=== PATIENT | female | born 1990 | race Caucasian/White ===

== ENCOUNTER 2016-08-27 14:42 | Emergency (ER) | payer OTHER ==
[~2016-08-27] VITALS: Ht 167.6 cm; Wt 85.0 kg
[~2016-08-27 14:42] MED LIST: BUSP30TA2 PO; CARB100C2 PO; CARB1CAP9 PO; LEVE500T26 PO; OXYC1TAB3 PO; PHN/100 PO; VENL75CA PO
[2016-08-27 14:48] VITALS: TEMP 36.7; Ht 167.6 cm; Wt 85.0 kg
[2016-08-27] MEDS ORDERED: ONDANSETRON INJ 2 MG/ML 2 ML VIAL IV STA (15:16)
[2016-08-27] MEDS ORDERED: SODIUM CHLORIDE 0.9% 1000ML 1,000 ML IV STA (15:16)
--- NOTE | 2016-08-27 15:26 | EMERGENCY ROOM VISIT NOTE ---
History First contact with patient: 15:07 Chief Complaint: ILLNESS Stated Complaint: POSSIBLE DILANTIN OVERDOSE History of Present Illness The patient is a 26 year old female who presents to the Emergency Room with complaints of possible Dilantin toxicity. The patient takes Dilantin and Tegretol for seizures. She states that she has been taking all of her medications exactly as prescribed. The patient states that when her Dilantin was elevated in the past she had the exact same symptoms. The patient reports nausea, double vision, migraine, photophobia and shaking. She rates her discomfort a 7/10. The patient's neurologist is Dr. Carter. She states she hasn't had her Dilantin level checked since the last time she was here. She denies any earache or sore throat. She states the entire family has had a cough. Her cough persists. She denies any neck pain or neck stiffness. She denies any abdominal pain. She denies any numbness, tingling or weakness in the extremities. Review of Systems A 10 system review of systems was completed with positives and pertinent negatives listed in the HPI. Past Medical/Surgical History Medical Problems: (1) Seizure disorder Surgical Problems: (1) History of dental surgery (2) History of tubal ligation Family History Cancer Heart disease Hypertension Seizures Social History Smoking Status: Never Smoker Alcohol Use: occasionally Drug Use: marijuana Marital Status: single Housing Status: lives with family Occupation Status: unemployed Current/Historical Medications Scheduled Buspirone HCl (Buspirone HCl), 30 MG PO BID Carbamazepine (Carbatrol Er), 600 MG PO BID Carbamazepine (Carbamazepine), 150 MG PO BID Phenytoin Sodium (Dilantin), 300 MG PO BID Venlafaxine Hcl (Effexor Extended Rel), 150 MG PO QAM Allergies Coded Allergies: Prednisone (Verified Adverse Reaction, Unknown, DILANTIN TOXICITY, 08/27/16 ) Sulfamethoxazole w/Trimethoprim (Verified Adverse Reaction, Unknown, BURNING,DIARRHEA, 08/27/16) Physical Exam Vital Signs Date Time Temp Pulse Resp B/P Pulse Ox O2 Delivery O2 Flow Rate FiO2 08/27/16 17:48 83 18 117/68 99 08/27/16 16:54 80 18 120/69 100 Room Air 08/27/16 14:48 36.7 89 20 179/88 99 Room Air Physical Exam VITALS: Vitals are noted on the nurse's note and reviewed by myself. Vital signs stable. The patient is afebrile. She is not tachycardic, tachypneic or hypoxic. GENERAL: This is a 26-year-old female, in no acute distress, nondiaphoretic, well-developed well-nourished. SKIN: The skin was without rashes, erythema, edema, or bruising. There is no tenting of the skin. Capillary reflex less than 2 seconds. HEAD: Normocephalic atraumatic. EARS: External auditory canals clear, tympanic membranes pearly daniels without erythema or effusion bilaterally. EYES: Pupils equal round and reactive to light and accommodation. The patient does have photosensitivity. Conjunctivae without injection, sclerae without icterus. Extraocular movements intact. NOSE: Patent, turbinates without inflammation or discharge. MOUTH: Mucous membranes moist. Tonsils are not enlarged. Pharynx without erythema or exudate. Uvula midline. Airway patent. Tongue does not deviate. NECK: Supple without nuchal rigidity. No JVD. HEART: Regular rate and rhythm without murmurs gallops or rubs. LUNGS: Clear to auscultation bilaterally without wheezes, rales or rhonchi. No retractions or accessory muscle use. ABDOMEN: Positive bowel sounds x 4. Soft, nontender, without masses or organomegaly. MUSCULOSKELETAL: No muscle atrophy, erythema, or edema noted. Full range of motion without joint tenderness in all extremities. No tenderness to palpation. Normal gait. Strength 5/5 throughout. NEURO: Patient was alert and oriented to person place and time. Cranial nerves II through XII grossly intact. No focal neurological deficits. Medical Decision & Procedures ER Provider Diagnostic Interpretation: CT SCAN OF THE BRAIN WITHOUT IV CONTRAST CLINICAL HISTORY: Headache. Nausea. COMPARISON STUDY: Prior CT scans of the brain, most recently dated 05/25/2016. TECHNIQUE: Unenhanced axial CT scan of the brain is performed from the vertex to the skull base. Automated dose control exposure was utilized. CT DOSE: 537.48 mGy.cm FINDINGS: Brain parenchyma: The brain parenchyma is normal in appearance. There is no hemorrhage, mass effect, or evidence of acute territorial ischemia by CT criteria. Daniels-white matter is preserved. No extra-axial fluid collection is seen. Ventricles, sulci, cisterns: Normal in configuration. Intracranial vasculature: The visualized intracranial vasculature at the skull base is normal in appearance. Calvarium: Unremarkable. Sinuses and mastoids: The visualized paranasal sinuses are clear. The mastoid air cells are well pneumatized. Orbits: The bony orbits are grossly intact. IMPRESSION: No acute intracranial abnormality. SINGLE VIEW CHEST CLINICAL HISTORY: Nausea. Headache. FINDINGS: An AP, portable, upright chest radiograph is compared to study dated 01/06/2014 and correlated with chest CT dated 09/15/2008. The cardiomediastinal silhouette is unremarkable. The lungs and pleural spaces are clear. No pneumothorax is seen. The bony thorax is grossly intact. IMPRESSION: No active disease in the chest. Laboratory Results 08/27/16 15:35 Red Blood Count 4.32, Mean Corpuscular Volume 91.7, Mean Corpuscular Hemoglobin 30.6, Mean Corpuscular Hemoglobin Concent 33.3, Mean Platelet Volume 8.4, Neutrophils (%) (Auto) 76.8, Lymphocytes (%) (Auto) 15.8, Monocytes (%) (Auto) 6.9, Eosinophils (%) (Auto) 0.4, Basophils (%) (Auto) 0.0, Neutrophils # (Auto) 5.49, Lymphocytes # (Auto) 1.13, Monocytes # (Auto) 0.49, Eosinophils # (Auto) 0.03, Basophils # (Auto) 0.00 08/27/16 15:35 Test 08/27/16 15:35 08/27/16 15:54 White Blood Count 7.15 K/uL (4.8-10.8) Red Blood Count 4.32 M/uL (4.2-5.4) Hemoglobin 13.2 g/dL (12.0-16.0) Hematocrit 39.6 % (37-47) Mean Corpuscular Volume 91.7 fL (80-100) Mean Corpuscular Hemoglobin 30.6 pg (25-34) Mean Corpuscular Hemoglobin Concent 33.3 g/dl (32-36) Platelet Count 249 K/uL (130-400) Mean Platelet Volume 8.4 fL (7.4-10.4) Neutrophils (%) (Auto) 76.8 % Lymphocytes (%) (Auto) 15.8 % Monocytes (%) (Auto) 6.9 % Eosinophils (%) (Auto) 0.4 % Basophils (%) (Auto) 0.0 % Neutrophils # (Auto) 5.49 K/uL (1.4-6.5) Lymphocytes # (Auto) 1.13 K/uL (1.2-3.4) Monocytes # (Auto) 0.49 K/uL (0.11-0.59) Eosinophils # (Auto) 0.03 K/uL (0-0.5) Basophils # (Auto) 0.00 K/uL (0-0.2) RDW Standard Deviation 43.9 fL (36.4-46.3) RDW Coefficient of Variation 13.1 % (11.5-14.5) Immature Granulocyte % (Auto) 0.1 % Immature Granulocyte # (Auto) 0.01 K/uL (0.00-0.02) Prothrombin Time 11.0 SECONDS (9.0-12.0) Prothromb Time International Ratio 1.0 (0.9-1.1) Activated Partial Thromboplast Time 26.6 SECONDS (21.0-31.0) Partial Thromboplastin Ratio 1.0 Anion Gap 8.0 mmol/L (3-11) Est Creatinine Clear Calc Drug Dose 116.4 ml/min Estimated GFR () 118.1 Estimated GFR (Non- 101.9 BUN/Creatinine Ratio 13.4 (10-20) Calcium Level 7.9 mg/dl (8.5-10.1) Magnesium Level 2.0 mg/dl (1.8-2.4) Total Bilirubin 0.2 mg/dl (0.2-1) Aspartate Amino Transf (AST/SGOT) 11 U/L (15-37) Alanine Aminotransferase (ALT/SGPT) 19 U/L (12-78) Alkaline Phosphatase 96 U/L (45-117) Troponin I < 0.015 ng/ml (0-0.045) Total Protein 7.2 gm/dl (6.4-8.2) Albumin 3.6 gm/dl (3.4-5.0) Globulin 3.6 gm/dl (2.5-4.0) Albumin/Globulin Ratio 1.0 (0.9-2) Lipase 84 U/L (73-393) Thyroid Stimulating Hormone (TSH) 1.580 uIu/ml (0.300-4.500) Phenytoin (Dilantin) Level 23.3 mcg/mL (10-20) Carbamazepine (Tegretol) Level 11.9 mcg/ml (4-12) Urine Color DK YELLOW Urine Appearance CLOUDY (CLEAR) Urine pH 7.5 (4.5-7.5) Urine Specific [place] 1.031 (1.000-1.030) Urine Protein NEG (NEG) Urine Glucose (UA) NEG (NEG) Urine Ketones NEG (NEG) Urine Occult Blood NEG (NEG) Urine Nitrite NEG (NEG) Urine Bilirubin NEG (NEG) Urine Urobilinogen NEG (NEG) Urine Leukocyte Esterase TRACE (NEG) Urine WBC (Auto) 5-10 /hpf (0-5) Urine RBC (Auto) 0-4 /hpf (0-4) Urine Hyaline Casts (Auto) 1-5 /lpf (0-5) Urine Epithelial Cells (Auto) >30 /lpf (0-5) Urine Bacteria (Auto) 1+ (NEG) Urine Test NEG (NEG) Medications Administered Medications (Trade) Dose Ordered Sig/Chauncey Route Start Time Stop Time Status Last Admin Dose Admin Sodium Chloride (Nss 1000ml) 1,000 ml @ 999 mls/hr Q1H1M STAT IV 08/27/16 15:16 08/27/16 16:16 DC 08/27/16 15:16 999 MLS/HR Ondansetron HCl (Zofran Inj) 4 mg NOW STAT IV 08/27/16 15:16 08/27/16 15:20 DC 08/27/16 15:34 4 MG Prochlorperazine Edisylate (Compazine Inj) 10 mg NOW STAT IV 08/27/16 16:14 08/27/16 16:16 DC 08/27/16 16:53 10 MG Diphenhydramine HCl (Benadryl Inj) 25 mg NOW STAT IV 08/27/16 16:14 08/27/16 16:16 DC 08/27/16 16:54 25 MG Procedure The patient was monitored on a front desk monitor. They maintained a normal sinus rhythm without ectopy. ECG Indication: weakness Rate (beats per minute): 79 Rhythm: normal sinus Findings: no acute ischemic change Change: no significant change ED Course The patient was seen and examined. Previous visits were reviewed. The patient does not have a fever or leukocytosis. She does not have any significant electrolyte abnormalities. Troponin was not elevated. Lipase was not elevated. TSH was within normal limits. INR was 1.0. Dilantin level was 23.3. Tegretol level was 11.9. Urinalysis suggests contamination and urine test was negative. CT scan of the brain was negative for acute abnormality Chest x-ray does not reveal any obvious abnormality The patient was hydrated with normal saline and given 4 mg IV Zofran. Her nausea improved but her headache did not She was then given 10 mg IV Compazine and 25 mg IV Benadryl and her headache had nearly resolved I discussed the case with poison control and they recommended following the Dilantin levels I discussed the case with Dr. Urban. She recommends Dilantin 300 mg in the morning and 200 mg in the evening. She recommends that the patient contact the office in the morning and she will likely need laboratory studies in approximately one week. I advised the patient of this. Her headache may represent migraine. The patient should return to the emergency Department with any worsening symptoms. The case was discussed with Dr. Hassan who agrees with the assessment and treatment plan Medical Decision The differential diagnosis includes: head or neck trauma, cerebrovascular disorders, intracranial lesions, infection,transient ischemic attack (TIA), CVA , seizure, syncope, intracranial mass, intracranial bleeding and vestibular disorders, among others Impression Primary Impression: Headache Additional Impression: Elevated Dilantin level Departure Information Dispostion Home / Self-Care Condition GOOD Referrals Arabella Noland D.O. (PCP) Francisco Carter M.D. (MEDICINE) Patient Instructions My [facility] [employer] Additional Instructions Dilantin 3 tablets in the morning and 2 tablets at night; 300 mg in the morning and 200 mg at night Call neurology office first thing in the morning for a follow-up Return with any worsening symptoms Problem Qualifiers Primary Impression: Headache
--- NOTE | 2016-08-27 15:32 | DIAGNOSTIC IMAGING REPORT ---
SINGLE VIEW CHEST CLINICAL HISTORY: Nausea. Headache. FINDINGS: An AP, portable, upright chest radiograph is compared to study dated 01/06/2014 and correlated with chest CT dated 09/15/2008. The cardiomediastinal silhouette is unremarkable. The lungs and pleural spaces are clear. No pneumothorax is seen. The bony thorax is grossly intact. IMPRESSION: No active disease in the chest. Electronically signed by: Santos Garcia M.D. 08/27/2016 3:31 PM Dictated Date/Time: 08/27/2016 3:30 PM
[2016-08-27] MEDS ORDERED: TGR100 PO (15:38)
[2016-08-27] MEDS ORDERED: BSP15 PO (15:38)
[2016-08-27] MEDS ORDERED: EFFSR75 PO (15:38)
[2016-08-27 15:47] LABS: COMPLETE YES; EOS % 0.4 %; HEMATOCRIT 39.6 % (37-47); IG% 0.1 %; LYMPH % 15.8 %; LYMPH ABS # 1.13 K/uL (1.2-3.4); MEAN CELL VOLUME 91.7 fL (80-100); MEAN CORPUSCULAR HEMOGLOBIN 30.6 pg (25-34); MEAN CORPUSCULAR HGB CONC 33.3 g/dl (32-36); MEAN PLATELET VOLUME 8.4 fL (7.4-10.4); MONO % 6.9 %; NEUT % 76.8 %; PLATELET COUNT 249 K/uL (130-400); RED BLOOD COUNT 4.32 M/uL (4.2-5.4); WHITE BLOOD COUNT 7.15 K/uL (4.8-10.8)
[2016-08-27 16:02] LABS: ALT/SGPT 19 U/L (12-78); AST/SGOT 11 U/L (15-37); BLOOD UREA NITROGEN 11 mg/dl (7-18); BUN/CREATININE RATIO 13.4 (10-20); CALCIUM 7.9 mg/dl (8.5-10.1); CARBON DIOXIDE 28 mmol/L (21-32); CHLORIDE 105 mmol/L (98-107); CREATININE 0.79 mg/dl (0.60-1.20); GLUCOSE 87 mg/dl (70-99); POTASSIUM 3.8 mmol/L (3.5-5.1); SODIUM 141 mmol/L (136-145)
[2016-08-27 16:13] LABS: ALKALINE PHOSPHATASE 96 U/L (45-117)
[2016-08-27] MEDS ORDERED: PROCHLORPERAZINE 5 MG/ML 2 ML VIAL IV STA (16:14)
[2016-08-27] MEDS ORDERED: DiphenhydrAMINE HCL 50 MG/ML VIAL IV STA (16:14)
--- NOTE | 2016-08-27 16:14 | DIAGNOSTIC IMAGING REPORT ---
CT SCAN OF THE BRAIN WITHOUT IV CONTRAST CLINICAL HISTORY: Headache. Nausea. COMPARISON STUDY: Prior CT scans of the brain, most recently dated 05/25/2016. TECHNIQUE: Unenhanced axial CT scan of the brain is performed from the vertex to the skull base. Automated dose control exposure was utilized. CT DOSE: 537.48 mGy.cm FINDINGS: Brain parenchyma: The brain parenchyma is normal in appearance. There is no hemorrhage, mass effect, or evidence of acute territorial ischemia by CT criteria. Daniels-white matter is preserved. No extra-axial fluid collection is seen. Ventricles, sulci, cisterns: Normal in configuration. Intracranial vasculature: The visualized intracranial vasculature at the skull base is normal in appearance. Calvarium: Unremarkable. Sinuses and mastoids: The visualized paranasal sinuses are clear. The mastoid air cells are well pneumatized. Orbits: The bony orbits are grossly intact. IMPRESSION: No acute intracranial abnormality. Electronically signed by: Santos Garcia M.D. 08/27/2016 4:13 PM Dictated Date/Time: 08/27/2016 4:11 PM
[2016-08-27 16:17] LABS: URINE APPEARANCE CLOUDY (CLEAR); URINE BILIRUBIN NEG (NEG); URINE COLOR DK YELLOW; URINE EPITHELIAL CELL AUTO >30 /lpf (0-5); URINE NITRITE NEG (NEG); URINE PH 7.5 (4.5-7.5); URINE SPECIFIC GRAVITY 1.031 (1.000-1.030); UROBILINOGEN NEG (NEG); ZZUR CULT IF INDIC CLEAN CATCH YES
[2016-08-27 16:23] LABS: MANUAL MICROSCOPIC REQUIRED? NO; REVIEW REQ? NO
[2016-08-27 17:48] VITALS: BP 117/68; PULSE 83; O2SAT 99
== END 2016-08-27 17:50 | disposition home or self-care (01) ==
LOC: C.EDB 14:44 → C.EDC 17:50
DX: R51 Headache (principal); R79.89 Other specified abnormal findings of blood chemistry; G40.909 Epilepsy, unspecified, not intractable, without status epilepticus; Z98.51 Tubal ligation status; Z98.890 Other specified postprocedural states; Z79.899 Other long term (current) drug therapy; Z88.2 Allergy status to sulfonamides; Z88.8 Allergy status to other drugs, medicaments and biological substances; Z80.9 Family history of malignant neoplasm, unspecified; Z82.49 Family history of ischemic heart disease and other diseases of the circulatory system; Z82.0 Family history of epilepsy and other diseases of the nervous system

== ENCOUNTER 2017-02-23 09:06 | Emergency (ER) | payer OTHER ==
[~2017-02-23] VITALS: Ht 167.6 cm; Wt 85.0 kg
[~2017-02-23 09:06] MED LIST changes: +BSP15 PO; -BUSP30TA2 PO; -CARB100C2 PO; +EFFSR75 PO; -LEVE500T26 PO; -OXYC1TAB3 PO; +TGR100 PO; -VENL75CA PO
[2017-02-23 09:10] VITALS: PULSE 95; TEMP 36.6; O2SAT 100; Ht 167.6 cm; Wt 85.0 kg
[2017-02-23] MEDS ORDERED: DLN100 PO ×2 (09:34)
[2017-02-23] MEDS ORDERED: IBUPROFEN 800 MG TAB PO STA (09:59)
[2017-02-23] MEDS ORDERED: DIAZEPAM 5MG TAB PO STA (09:59)
[2017-02-23] MEDS ORDERED: DIAZEPAM 2MG TAB ONE (10:24)
--- NOTE | 2017-02-23 10:44 | EMERGENCY ROOM VISIT NOTE ---
History Report prepared by Kadie: Bri Ca Under the Supervision of: Dr. Davin Tejada M.D. First contact with patient: 09:35 Chief Complaint: BACK PAIN Stated Complaint: SEVERE LOWER BACK PAIN History of Present Illness The patient is a 26 year old female who presents to the Emergency Room with complaints of severe lower back pain beginning a week ago. The patient fell out of her wheel chair this morning from an epileptic episode and was unable to get up after. The patient was with her partner who helped her get back in her wheelchair after the episode. Normally during an epileptic episode, the patient does not loose consciousness, she states she has muscle spasms and then loses muscle tone. She denies any fevers, chills, cough, congestion, urinary symptoms or incontinence. The patient has a history of epilepsy and is in a wheelchair for fall preventative measures. She states that she is not bound to her wheel chair and she is able to walk but she uses it due to her history of falls. She notes this is the third time her back pain has been this severe and that she has found nothing that helps alleviate the pain i.e. heat, ice, Tylenol. The patient states that she was trying to get in to see a physician for her back pain but due to her fall worsening the pain she came to the ED. She is currently being evaluated by a neurologist for narcolepsy. The patient has not seen pain management for her reoccurring back pain. Source of History: patient Onset: a week ago Position: back (lower) Symptom Intensity: severe Timing: constant Associated Symptoms: No fevers, No chills, No cough, No urinary symptoms Note: Pt denies any incontinence or congestion. Review of Systems See HPI for pertinent positives and negatives. A total of ten systems were reviewed and were otherwise negative. Past Medical & Surgical Medical Problems: (1) Seizure disorder Surgical Problems: (1) History of dental surgery (2) History of tubal ligation Family History Cancer Heart disease Hypertension Seizures Social History Smoking Status: Former Smoker Alcohol Use: occasionally Drug Use: marijuana Marital Status: single Housing Status: lives with family Occupation Status: unemployed Current/Historical Medications Scheduled Buspirone HCl (Buspirone HCl), 30 MG PO BID Carbamazepine (Carbatrol Er), 600 MG PO BID Carbamazepine (Carbamazepine), 150 MG PO BID Phenytoin Sodium (Dilantin), 300 MG PO HS Phenytoin Sodium (Dilantin), 200 MG PO QAM Venlafaxine Hcl (Effexor Extended Rel), 37.5 MG PO QAM Scheduled PRN Cyclobenzaprine Hcl (Flexeril), 10 MG PO TID PRN for Muscle Spasms Allergies Coded Allergies: Prednisone (Verified Adverse Reaction, Unknown, DILANTIN TOXICITY, 02/23/17) Sulfamethoxazole w/Trimethoprim (Verified Adverse Reaction, Unknown, BURNING,DIARRHEA, 02/23/17) Physical Exam Vital Signs Date Time Temp Pulse Resp B/P (MAP) Pulse Ox O2 Delivery O2 Flow Rate FiO2 02/23/17 14:23 126/78 02/23/17 13:24 135/80 02/23/17 11:31 122/69 02/23/17 09:10 36.6 95 18 124/68 100 Room Air Physical Exam GENERAL: Awake, alert, well-appearing, in no distress HENT: Normocephalic, atraumatic. Oropharynx unremarkable. EYES: Normal conjunctiva. Sclera non-icteric. NECK: Supple. No nuchal rigidity. FROM. No JVD. RESPIRATORY: Clear to auscultation. CARDIAC: Regular rate, normal rhythm. Extremities warm and well perfused. Pulses equal. ABDOMEN: Soft, non-distended. No tenderness to palpation. No rebound or guarding. No masses. RECTAL: Deferred. MUSCULOSKELETAL: Chest examination reveals no tenderness. The back is symmetrical on inspection without obvious abnormality.Exaggerated L-spine tenderness. There is no CVA tenderness to palpation. No joint edema. LOWER EXTREMITIES: Calves are equal size bilaterally and non-tender. No edema. No discoloration. Positive leg raise bilaterally. NEURO: Normal sensorium. No sensory or motor deficits noted. SKIN: No rash or jaundice noted. Medical Decision & Procedures ER Provider Diagnostic Interpretation: Radiology results as stated below per my review and radiologist interpretation: MRI OF THE LUMBAR SPINE WITHOUT CONTRAST FINDINGS: As shown on prior imaging studies, 6 lumbar type vertebra are present. When utilizing this numbering scheme, the L6-S1 disc space is assigned to axial image 28 of 30. Alignment of lumbar spine is anatomic. Vertebral body heights are maintained. There is no suspicious marrow replacement. Discogenic changes are noted at the L5-L6 level. A hemangioma along the inferior endplate of L4 is noted. There is no intracanalicular mass or fluid collection. The conus terminates at the mid L2 level. Paravertebral soft tissues are unremarkable. L1-2: The central canal and neural foramen are patent. L2-3: The central canal and neural foramen are patent. L3-4: There is a tiny central annular tear with minimal disc bulge. The central canal and neural foramen are patent. L4-5: There is minimal disc bulge with a small annular tear. Central canal and neural foramen are patent. L5-L6: There is a small central disc protrusion. This results in mild narrowing of the central canal and lateral recesses. There is minimal narrowing of both neural foramen. This is unchanged since prior MRI of September 16, 2015. L6-S1: The central canal and neural foramen are patent. IMPRESSION: 1. No acute abnormality within the lumbar spine by MRI. 2. No change in a small central disc protrusion at L5-L6 since MRI of September 16, 2015. Mild narrowing of the central canal, lateral recesses and neural foramen at this level which is unchanged. 3. Small annular tears at L3-L4 and L4-L5. 4. 6 lumbar type vertebra. Please see above numbering scheme of the lumbar spine. Electronically signed by: Bacilio Garber M.D. Laboratory Results Test 02/23/17 10:50 Urine Color YELLOW Urine Appearance CLEAR (CLEAR) Urine pH 7.0 (4.5-7.5) Urine Specific [place] 1.017 (1.000-1.030) Urine Protein NEG (NEG) Urine Glucose (UA) NEG (NEG) Urine Ketones NEG (NEG) Urine Occult Blood NEG (NEG) Urine Nitrite NEG (NEG) Urine Bilirubin NEG (NEG) Urine Urobilinogen NEG (NEG) Urine Leukocyte Esterase NEG (NEG) Urine Test NEG (NEG) Laboratory results reviewed by me Medications Administered Medications (Trade) Dose Ordered Sig/Chauncey Route Start Time Stop Time Status Last Admin Dose Admin Ibuprofen (Motrin Tab) 800 mg NOW STAT PO 02/23/17 09:59 02/23/17 10:02 DC 02/23/17 10:27 800 MG Diazepam (Valium Tab) 2 mg STK-MED ONCE .ROUTE 02/23/17 10:24 02/23/17 10:25 DC 02/23/17 10:26 2 MG Oxycodone/ Acetaminophen (Percocet 5-325mg Tab) 1 tab NOW ONCE PO 02/23/17 12:45 02/23/17 12:46 DC 02/23/17 12:46 1 TAB ED Course 0950: The patient was evaluated in room B8. A complete history and physical exam was performed. 0959: Valium Tab 2 mg PO, Motrin Tab 800 mg PO. 1024: Valium Tab 2 mg .ROUTE. 1245: Oxycodone/Acetaminophen 1 tab PO. 1406: I reevaluated the patient and updated her with her test results. 1415: I reevaluated the patient. Discussed results and discharge instructions: She verbalized understanding and agreement. The patient is ready for discharge. Medical Decision I reviewed the patient's past medical history, medications, and the nursing notes as described above. Differential diagnosis: acute radiculopathy, musculoskeletal strain, pyelonephritis, and UTI. Patient is a 26-year-old woman with a comp K past medical history of chronic back pain as well as history of falls that are a question of syncope versus narcolepsy versus seizure which she is followed by neurology for presents emergency Department with 1 week of worsening back pain with her visit today was prompted by another fall from her wheelchair where she lost muscle tone and fell to the ground onto her knees per history of present illness. Arrival the patient is no acute distress, afebrile stable vital signs. She has 5 out of 5 strength and sensation intact in all 4 extremities. On exam of her lower back she has an exaggerated painful response to light touch of the skin of the paraspinal muscles and midline of her lower back. Denies any urinary retention or bowel incontinence. Considering the patient's report of debilitating pain MRI L-spine was done to evaluate for any worsening of her prior findings. MRI was unchanged from previous. Findings discussed with patient and the plan to follow up with her PCP for further management. I again advised that narcotics are not recommended for chronic back pain and thus I would not provide her with a prescription for this. Rather she will follow-up with her doctor to try in get an earlier appointment with the pain clinic. Patient was given Flexeril for additional muscle relaxation. Findings and plan for follow-up d/w patient. Patient agreeable and d/c'd per discharge instructions. Medication Reconcilliation Current Medication List: was personally reviewed by me Blood Pressure Screening Patient's blood pressure: Normal blood pressure Impression Primary Impression: Lumbar radiculopathy Scribe Attestation The scribe's documentation has been prepared under my direction and personally reviewed by me in its entirety. I confirm that the note above accurately reflects all work, treatment, procedures, and medical decision making performed by me. Departure Information Dispostion Home / Self-Care Prescriptions Cyclobenzaprine Hcl (FLEXERIL) 10 Mg Tab 10 MG PO TID Y for Muscle Spasms, #21 TAB Prov: Davin Tejada M.D. 02/23/17 Referrals Arabella Noland D.O. (PCP) Forms HOME CARE DOCUMENTATION FORM, IMPORTANT VISIT INFORMATION Patient Instructions Lumbar Radiculopathy, My [facility] Additional Instructions Please follow up with your primary care physician in the next 1-3 days for reevaluation. Your MRI was unchanged from 2016. Otherwise, your exam and MRI did not show signs of an emergent condition at this time. Take ibuprofen scheduled for the next several days every 6 hours for pain. Take Flexeril as directed for muscle relaxation. Apply heating pad at 20 minute intervals throughout the day for additional muscle relaxation and pain relief. Return to the emergency department for worsening symptoms as described in the accompanying instructions.
[2017-02-23 11:05] LABS: URINE APPEARANCE CLEAR (CLEAR); URINE BILIRUBIN NEG (NEG); URINE COLOR YELLOW; URINE NITRITE NEG (NEG); URINE SPECIFIC GRAVITY 1.017 (1.000-1.030); UROBILINOGEN NEG (NEG); ZZUR CULT IF INDIC CLEAN CATCH NO
[2017-02-23 11:20] LABS: MANUAL MICROSCOPIC REQUIRED? NO; REVIEW REQ? NO
[2017-02-23] MEDS ORDERED: OXYCODONE/ACETAMINOPHEN 5-325 TAB PO ONE (12:45)
--- NOTE | 2017-02-23 13:12 | DIAGNOSTIC IMAGING REPORT ---
MRI OF THE LUMBAR SPINE WITHOUT CONTRAST CLINICAL HISTORY: Severe lower back pain. Lumbar radiculopathy. Recent fall. COMPARISON STUDY: Lumbar spine MRI September 16, 2015. TECHNIQUE: Utilizing a 1.5 Anna magnet and dedicated coil, multiplanar, multiecho imaging of the lumbar spine was performed without IV contrast. FINDINGS: As shown on prior imaging studies, 6 lumbar type vertebra are present. When utilizing this numbering scheme, the L6-S1 disc space is assigned to axial image 28 of 30. Alignment of lumbar spine is anatomic. Vertebral body heights are maintained. There is no suspicious marrow replacement. Discogenic changes are noted at the L5-L6 level. A hemangioma along the inferior endplate of L4 is noted. There is no intracanalicular mass or fluid collection. The conus terminates at the mid L2 level. Paravertebral soft tissues are unremarkable. L1-2: The central canal and neural foramen are patent. L2-3: The central canal and neural foramen are patent. L3-4: There is a tiny central annular tear with minimal disc bulge. The central canal and neural foramen are patent. L4-5: There is minimal disc bulge with a small annular tear. Central canal and neural foramen are patent. L5-L6: There is a small central disc protrusion. This results in mild narrowing of the central canal and lateral recesses. There is minimal narrowing of both neural foramen. This is unchanged since prior MRI of September 16, 2015. L6-S1: The central canal and neural foramen are patent. IMPRESSION: 1. No acute abnormality within the lumbar spine by MRI. 2. No change in a small central disc protrusion at L5-L6 since MRI of September 16, 2015. Mild narrowing of the central canal, lateral recesses and neural foramen at this level which is unchanged. 3. Small annular tears at L3-L4 and L4-L5. 4. 6 lumbar type vertebra. Please see above numbering scheme of the lumbar spine. Electronically signed by: Bacilio Garber M.D. 02/23/2017 1:11 PM Dictated Date/Time: 02/23/2017 1:03 PM
[2017-02-23] MEDS ORDERED: CYCL10TA6 PO (14:11)
[2017-02-23 14:23] VITALS: BP 126/78
== END 2017-02-23 14:24 | disposition home or self-care (01) ==
LOC: C.EDB 09:07
DX: M54.16 Radiculopathy, lumbar region (principal); G40.909 Epilepsy, unspecified, not intractable, without status epilepticus; Z82.0 Family history of epilepsy and other diseases of the nervous system; Z82.49 Family history of ischemic heart disease and other diseases of the circulatory system; Z87.891 Personal history of nicotine dependence; F12.90 Cannabis use, unspecified, uncomplicated

== ENCOUNTER 2017-03-20 09:12 | Emergency (ER) | payer OTHER ==
[~2017-03-20] VITALS: Ht 167.6 cm; Wt 81.0 kg
[~2017-03-20 09:12] MED LIST changes: +DLN100 PO; -PHN/100 PO
[2017-03-20 09:23] VITALS: TEMP 36.8; Ht 167.6 cm; Wt 81.0 kg
[2017-03-20] MEDS ORDERED: NRN100 PO (09:40)
[2017-03-20] MEDS ORDERED: PENI500T2 PO (10:07)
[2017-03-20] MEDS ORDERED: ONDANSETRON INJ 2 MG/ML 2 ML VIAL IV STA (10:11)
[2017-03-20] MEDS ORDERED: GABAPENTIN 100 MG CAP PO STA (10:11)
[2017-03-20] MEDS ORDERED: LORAZEPAM 2 MG/ML 1 ML VIAL IV STA (10:11)
[2017-03-20] MEDS ORDERED: BusPIRone 15 MG TAB PO STA (10:11)
[2017-03-20] MEDS ORDERED: PHENYTOIN 100 MG/4 ML UDP PO STA (10:11)
[2017-03-20] MEDS ORDERED: CARBAMAZEPINE 200 MG TAB PO ONE (10:15)
[2017-03-20] MEDS ORDERED: PHENYTOIN SUSP 125 MG/5 ML PO STA (10:34)
--- NOTE | 2017-03-20 10:38 | DIAGNOSTIC IMAGING REPORT ---
CHEST ONE VIEW PORTABLE HISTORY: Atypical chest pain. COMPARISON: Chest 08/27/2016. FINDINGS: The lungs are clear. Cardiac silhouette is normal in size. No pleural effusions. No pneumothorax. IMPRESSION: No acute process. Electronically signed by: Eladio Valenzuela M.D. 03/20/2017 10:37 AM Dictated Date/Time: 03/20/2017 10:35 AM
[2017-03-20 10:49] LABS: BASO % 0.1 %; BASO ABS # 0.01 K/uL (0-0.2); COMPLETE YES; EOS % 0.1 %; HEMATOCRIT 44.4 % (37-47); IG% 0.2 %; LYMPH % 13.4 %; LYMPH ABS # 1.11 K/uL (1.2-3.4); MEAN CELL VOLUME 91.5 fL (80-100); MEAN CORPUSCULAR HEMOGLOBIN 29.7 pg (25-34); MEAN CORPUSCULAR HGB CONC 32.4 g/dl (32-36); MEAN PLATELET VOLUME 8.7 fL (7.4-10.4); MONO % 4.8 %; NEUT % 81.4 %; PLATELET COUNT 348 K/uL (130-400); RED BLOOD COUNT 4.85 M/uL (4.2-5.4); WHITE BLOOD COUNT 8.29 K/uL (4.8-10.8)
[2017-03-20 10:58] LABS: POINT OF CARE TROPONIN I < 0.030 ng/ml (0-0.045)
[2017-03-20 11:00] LABS: BUN/CREATININE RATIO 9.4 (10-20); CALCIUM 8.8 mg/dl (8.5-10.1); CREATININE 0.8 mg/dl (0.60-1.20); POTASSIUM 3.6 mmol/L (3.5-5.1)
[2017-03-20 11:01] VITALS: O2SAT 100
[2017-03-20 11:05] LABS: PROTHROMBIN TIME (PATIENT) 10.9 SECONDS (9.0-12.0)
[2017-03-20] MEDS ORDERED: OPTIRAY 320 IV PRN (11:15)
[2017-03-20] MEDS ORDERED: CARBAMAZEPINE 100 MG CHEW TAB PO ONE (11:15)
--- NOTE | 2017-03-20 11:44 | DIAGNOSTIC IMAGING REPORT ---
(CHEST FOR PE) ANGIO WITH CT DOSE: 308.72 mGy.cm HISTORY: 26 years-old Female presents with acute atypical chest pain and elevated D dimer level. Concern for pulmonary embolus. TECHNIQUE: Multiple CTA images of the chest were obtained after the intravenous administration of 120 mL Optiray 320. Coronal and sagittal MIPS were obtained from the axial data set and were submitted for review. A dose lowering technique was utilized adhering to the principles of ALARA. COMPARISON: Chest radiograph of same day, thoracic spine CT 09/15/2008. FINDINGS: CTA: Heart is normal in size without pericardial effusion. Thoracic aorta is normal in course and caliber without dissection or aneurysm. Evaluation of the pulmonary arterial tree is mildly limited secondary to respiratory motion. Specifically, the distal subsegmental branches are not well seen. No pulmonary embolus identified. CT CHEST: No dominant thyroid nodule is seen. No pathologically adenopathy by CT size criteria. There is no pneumothorax, pleural effusion or focal airspace consolidation. The imaged upper abdominal structures are normal. The osseous structures appear intact. IMPRESSION: No acute intrathoracic abnormality identified, specifically no acute aortic pathology or evidence of pulmonary thromboembolic disease. The above report was generated using voice recognition software. It may contain grammatical, syntax or spelling errors. Electronically signed by: Rigo Schulz M.D. 03/20/2017 11:43 AM Dictated Date/Time: 03/20/2017 11:37 AM
--- NOTE | 2017-03-20 12:58 | DIAGNOSTIC IMAGING REPORT ---
LEFT LOWER EXTREMITY VENOUS DOPPLER CLINICAL HISTORY: Left leg won't stop moving. COMPARISON STUDY: No previous studies for comparison. TECHNIQUE: Sonography of the deep venous system of the left lower extremity was performed. Compression and augmentation were evaluated. FINDINGS: The common femoral, superficial femoral and popliteal veins were compressible. Augmentation was normal. Flow was shown within the deep calf vessels. IMPRESSION: No evidence of deep venous thrombus within the left lower extremity. Electronically signed by: Bacilio Garber M.D. 03/20/2017 12:57 PM Dictated Date/Time: 03/20/2017 12:50 PM
[2017-03-20] MEDS ORDERED: ATV/1 PO (13:33)
[2017-03-20 14:03] VITALS: BP 106/79; PULSE 87; O2SAT 100
--- NOTE | 2017-03-20 17:59 | EMERGENCY ROOM VISIT NOTE ---
History Report prepared by Kadie: Bettye Lopez Under the Supervision of: Dr. Frantz Long M.D. First contact with patient: 09:50 Chief Complaint: NEURO SYMPTOMS Stated Complaint: LEFT LEG WON'T STOP MOVING, N, EPILEPTIC SX Nursing Triage Summary: pt reports hx of epilepsy no seizure for 3 years , Pt reports L leg is always restless but movement has increased since fri and is unable to rest , pt also reports pain in leg is increased History of Present Illness The patient is a 26 year old female who presents to the Emergency Room with complaints of worsening neurological symptoms for the past two days. The patient has a history of epilepsy and a movement disorder of the left leg. She was diagnosed with restless leg syndrome. She states that for the past 15 years she has had muscle spasms and constant movement in her left leg. She follows up with a neurologist, Dr. Carter, for this issue. Over the past two days this movement of her left leg has worsened. She states that it has become more severe and she is now experiencing pain in the muscles of her left leg. The patient rates her pain as a 7/10 in severity. This used to be a precursor to her seizures, but she states that she has not had a seizure recently. She takes medications for her seizures. The patient is also experiencing nausea, vomiting, and chest pain. She states that it feels like her heart is pounding and she initially thought that she might be having an anxiety attack but states that this sensation has not gone away. The patient denies fevers, pain or swelling in her legs, and any chance of . She denies any control use. She denies any personal or family history of blood clots. She cannot stand up due to her symptoms and is in a wheelchair. Source of History: patient Onset: 2 days ago Position: other (global ) Symptom Intensity: 7/10 Quality: other (neurological) Timing: worsening Modifying Factors (Worsening): other (standing) Associated Symptoms: + chest pain, + SOB, + nausea, + vomiting Note: The patient has uncontrollable movement of the left leg. Review of Systems See HPI for pertinent positives & negatives. A total of 10 systems reviewed and were otherwise negative. Past Medical & Surgical Medical Problems: (1) Seizure disorder Surgical Problems: (1) History of dental surgery (2) History of tubal ligation Family History Cancer Heart disease Hypertension Seizures Social History Smoking Status: Never Smoker Alcohol Use: occasionally Drug Use: marijuana Marital Status: single Housing Status: lives with family Occupation Status: unemployed Current/Historical Medications Scheduled Buspirone HCl (Buspirone HCl), 30 MG PO BID Carbamazepine (Carbatrol Er), 600 MG PO BID Carbamazepine (Carbamazepine), 150 MG PO BID Gabapentin (Gabapentin), 100 MG PO TID Phenytoin Sodium (Dilantin), 300 MG PO HS Phenytoin Sodium (Dilantin), 200 MG PO QAM Scheduled PRN Lorazepam (Ativan), 1 MG PO Q12 PRN for Anxiety/Agitation Allergies Coded Allergies: Prednisone (Verified Adverse Reaction, Unknown, DILANTIN TOXICITY, 03/20/17 ) Sulfamethoxazole w/Trimethoprim (Verified Adverse Reaction, Unknown, BURNING,DIARRHEA, 03/20/17) Physical Exam Vital Signs Date Time Temp Pulse Resp B/P (MAP) Pulse Ox O2 Delivery O2 Flow Rate FiO2 03/20/17 14:03 87 20 106/79 100 03/20/17 13:30 90 20 129/81 99 Room Air 03/20/17 11:54 90 20 123/79 100 03/20/17 11:12 83 18 109/77 100 Room Air 03/20/17 11:02 84 03/20/17 11:02 86 18 109/77 100 Room Air 03/20/17 11:01 100 Room Air 03/20/17 09:23 36.8 94 18 142/68 99 Room Air Physical Exam Constitutional: Vital signs reviewed. Eyes: Pupils are equal round reactive to light. Conjunctiva are noninjected. ENT: Pharynx is clear without erythema or exudate. Mucous membranes are moist. Neck supple without meningeal signs. Respiratory: Clear to auscultation bilaterally. Breath sounds are equal bilaterally. Cardiovascular: Regular rate and rhythm. No rubs or gallops. GI: Soft, nondistended and nontender. Bowel sounds are present. Musculoskeletal: No peripheral edema. No lower extremity tenderness. Integumentary: No cyanosis. Neurological: The patient is awake and alert, very anxious, continually moving her left leg. Cranial nerves II-XII are intact. Motor is 5 out of 5 all extremities. Sensation is intact to light touch all extremities. Normal speech. No pronator drift. Psychiatric: Very anxious. . Medical Decision & Procedures ER Provider Diagnostic Interpretation: Radiology results as stated below per my review and the radiologist's interpretation: CHEST ONE VIEW PORTABLE HISTORY: Atypical chest pain. COMPARISON: Chest 08/27/2016. FINDINGS: The lungs are clear. Cardiac silhouette is normal in size. No pleural effusions. No pneumothorax. IMPRESSION: No acute process. Electronically signed by: Eladio Valenzuela M.D. 03/20/2017 10:37 AM Dictated Date/Time: 03/20/2017 10:35 AM (CHEST FOR PE) ANGIO WITH CT DOSE: 308.72 mGy.cm HISTORY: 26 years-old Female presents with acute atypical chest pain and elevated D dimer level. Concern for pulmonary embolus. TECHNIQUE: Multiple CTA images of the chest were obtained after the intravenous administration of 120 mL Optiray 320. Coronal and sagittal MIPS were obtained from the axial data set and were submitted for review. A dose lowering technique was utilized adhering to the principles of ALARA. COMPARISON: Chest radiograph of same day, thoracic spine CT 09/15/2008. FINDINGS: CTA: Heart is normal in size without pericardial effusion. Thoracic aorta is normal in course and caliber without dissection or aneurysm. Evaluation of the pulmonary arterial tree is mildly limited secondary to respiratory motion. Specifically, the distal subsegmental branches are not well seen. No pulmonary embolus identified. CT CHEST: No dominant thyroid nodule is seen. No pathologically adenopathy by CT size criteria. There is no pneumothorax, pleural effusion or focal airspace consolidation. The imaged upper abdominal structures are normal. The osseous structures appear intact. IMPRESSION: No acute intrathoracic abnormality identified, specifically no acute aortic pathology or evidence of pulmonary thromboembolic disease. The above report was generated using voice recognition software. It may contain grammatical, syntax or spelling errors. Electronically signed by: Rigo Schulz M.D. 03/20/2017 11:43 AM Dictated Date/Time: 03/20/2017 11:37 AM LEFT LOWER EXTREMITY VENOUS DOPPLER CLINICAL HISTORY: Left leg won't stop moving. COMPARISON STUDY: No previous studies for comparison. TECHNIQUE: Sonography of the deep venous system of the left lower extremity was performed. Compression and augmentation were evaluated. FINDINGS: The common femoral, superficial femoral and popliteal veins were compressible. Augmentation was normal. Flow was shown within the deep calf vessels. IMPRESSION: No evidence of deep venous thrombus within the left lower extremity. Electronically signed by: Bacilio Garber M.D. 03/20/2017 12:57 PM Dictated Date/Time: 03/20/2017 12:50 PM Laboratory Results 03/20/17 10:30 Red Blood Count 4.85, Mean Corpuscular Volume 91.5, Mean Corpuscular Hemoglobin 29.7, Mean Corpuscular Hemoglobin Concent 32.4, Mean Platelet Volume 8.7, Neutrophils (%) (Auto) 81.4, Lymphocytes (%) (Auto) 13.4, Monocytes (%) (Auto) 4.8, Eosinophils (%) (Auto) 0.1, Basophils (%) (Auto) 0.1, Neutrophils # (Auto) 6.74, Lymphocytes # (Auto) 1.11, Monocytes # (Auto) 0.40, Eosinophils # (Auto) 0.01, Basophils # (Auto) 0.01 03/20/17 10:30 Test 03/20/17 10:30 03/20/17 10:39 White Blood Count 8.29 K/uL (4.8-10.8) Red Blood Count 4.85 M/uL (4.2-5.4) Hemoglobin 14.4 g/dL (12.0-16.0) Hematocrit 44.4 % (37-47) Mean Corpuscular Volume 91.5 fL (80-100) Mean Corpuscular Hemoglobin 29.7 pg (25-34) Mean Corpuscular Hemoglobin Concent 32.4 g/dl (32-36) Platelet Count 348 K/uL (130-400) Mean Platelet Volume 8.7 fL (7.4-10.4) Neutrophils (%) (Auto) 81.4 % Lymphocytes (%) (Auto) 13.4 % Monocytes (%) (Auto) 4.8 % Eosinophils (%) (Auto) 0.1 % Basophils (%) (Auto) 0.1 % Neutrophils # (Auto) 6.74 K/uL (1.4-6.5) Lymphocytes # (Auto) 1.11 K/uL (1.2-3.4) Monocytes # (Auto) 0.40 K/uL (0.11-0.59) Eosinophils # (Auto) 0.01 K/uL (0-0.5) Basophils # (Auto) 0.01 K/uL (0-0.2) RDW Standard Deviation 42.7 fL (36.4-46.3) RDW Coefficient of Variation 12.7 % (11.5-14.5) Immature Granulocyte % (Auto) 0.2 % Immature Granulocyte # (Auto) 0.02 K/uL (0.00-0.02) Prothrombin Time 10.9 SECONDS (9.0-12.0) Prothromb Time International Ratio 1.0 (0.9-1.1) Activated Partial Thromboplast Time 26.6 SECONDS (21.0-31.0) Partial Thromboplastin Ratio 1.0 Anion Gap 7.0 mmol/L (3-11) Est Creatinine Clear Calc Drug Dose 112.3 ml/min Estimated GFR () 116.3 Estimated GFR (Non- 100.3 BUN/Creatinine Ratio 9.4 (10-20) Calcium Level 8.8 mg/dl (8.5-10.1) Bedside D-Dimer > 450 ng/mlFEU (0-450) Bedside Troponin I < 0.030 ng/ml (0-0.045) Laboratory results as reviewed by me. Medications Administered Medications (Trade) Dose Ordered Sig/Chauncey Route Start Time Stop Time Status Last Admin Dose Admin Lorazepam (Ativan Inj) 1 mg NOW STAT IV 03/20/17 10:11 03/20/17 10:16 DC 03/20/17 11:07 1 MG Buspirone HCl (BusPAR TAB) 30 mg NOW STAT PO 03/20/17 10:11 03/20/17 10:16 DC 03/20/17 11:06 30 MG Gabapentin (Neurontin Cap) 100 mg NOW STAT PO 03/20/17 10:11 03/20/17 10:16 DC 03/20/17 11:07 100 MG Ondansetron HCl (Zofran Inj) 4 mg NOW STAT IV 03/20/17 10:11 03/20/17 10:16 DC 03/20/17 11:07 4 MG Phenytoin (Dilantin Susp) 200 mg NOW STAT PO 03/20/17 10:34 03/20/17 10:36 DC 03/20/17 11:08 200 MG Carbamazepine (Tegretol Chew Tab) 150 mg NOW ONCE PO 03/20/17 11:15 03/20/17 11:16 DC 10/3/17 11:53 150 MG ECG Indication: chest pain Rate (beats per minute): 81 Rhythm: normal sinus Findings: no acute ischemic change, no ectopy ED Course 0950: The patient was evaluated in room B7. A complete history and physical exam was performed. 1011: Zofran 4 mg IV, Gabapentin 100 mg PO, Buspirone HCl 30 mg PO, Ativan 1 mg IV 1034: Phenytoin 200 mg PO 1110: I spoke with the patient about her elevated D-dimer test and she agrees to a CT scan. She denies chance of . She is currently having her period and had a BTL. 1115: Carbamazepine 150 mg PO 1152: The patient is feeling better after the Ativan. I discussed the results with her and she is going to get an US of her left leg. 1302: I spoke with Dr. Carter, the patient's neurologist. We discussed her treatment plan. He recommended that she double her Neurontin and discharge her home with a short supply of Ativan. He will follow-up with the patient in the office. 1327: I reassessed the patient at this time. She is feeling better and resting comfortably. I discussed the results and treatment plan with patient. I answered all pertaining questions that she had. She expressed understanding and verbalized agreement. The patient will be discharged home. Medical Decision This is a 26-year-old female presents with leg pain, chest pain, shortness of breath and restlessness. Differential diagnosis includes restless leg syndrome , DVT, superficial thrombophlebitis, lumbar radiculopathy, pulmonary embolism, anxiety. I did perform a limited focused review of portions of the patient's old chart on the electronic medical record. The patient was seen here February 23 after falling due to a seizure. She had back pain and had an MRI of her lumbar spine which showed no acute process. She had an old, small central disc protrusion at L5/L6 and small annular tears L4/L5, L3/L4. I did evaluate the patient as noted above. The patient is extremely anxious. She is tearful and continually moves her left leg. She states that she has had this problem for years but recently it has gotten much worse. She denies any seizure. IV access was established. The patient was placed on a continuous rn cardiac. I did treat her with Ativan 1 mg IV. I did order and personally review the patient's 12-lead EKG and chest x-ray as described above. I did order and review the patient's blood work as noted in the electronic medical record. Troponin is negative but d-dimer is elevated. While her chest pain and shortness of breath seems to be more related to anxiety, with a elevated d-dimer I did feel it was worthwhile to rule out pulmonary embolism. I did discuss this with her and she was in agreement. I did order a CT of the chest. I did review the images myself as well as the radiology report as described above. There is no evidence of pulmonary embolism. I did also obtain a Doppler ultrasound of her left leg where she is having pain. This did not show any evidence of DVT. I did discuss the test results with the patient. She is feeling much better at this time. I did also treat her with her morning meds which he forgot to take. She did have her Carbatrol ER which she took from her own supply. I did discuss the case with Dr. Carter who recommended giving her a short supply of Ativan and having her call the office in the morning for further care. I did provide her with a short prescription for Ativan and gave her precautions regarding this medication. She was discharged in good condition. [place] Drug Monitoring Program Search Results: patient reviewed within database, no issues identified Medication Reconcilliation Current Medication List: was personally reviewed by me Blood Pressure Screening Patient's blood pressure: Elevated blood pressure Blood pressure disposition: Referred to PCP Consults Time Called: 1259 Consulting Physician: Dr. Carter Returned Call: [address] Carter, the patient's neurologist. We discussed her treatment plan. He recommended that she double her Neurontin and discharge her home with a short supply of Ativan. He will follow-up with the patient in the office. Impression Primary Impression: Restless leg syndrome Additional Impressions: Left leg pain Acute chest pain Scribe Attestation The scribe's documentation has been prepared under my direct and personally reviewed by me in its entirety. I confirm that the note above accurately reflects all work, treatment, procedures, and medical decision making performed by me. Departure Information Dispostion Home / Self-Care Prescriptions Lorazepam (ATIVAN) 1 Mg Tab 1 MG PO Q12 Y for Anxiety/Agitation, #10 TAB Prov: Frantz Long M.D. 03/20/17 Referrals Arabella Noland D.O. (PCP) Forms HOME CARE DOCUMENTATION FORM, IMPORTANT VISIT INFORMATION, WORK / SCHOOL INSTRUCTIONS Patient Instructions ED Chest Pain Atypical Unkn Cause, My [facility], Restless Legs Syndrome What Do Additional Instructions You have been examined and treated today on an emergency basis only. This is not a substitute for, or an effort to provide, complete comprehensive medical care. It is impossible to recognize and treat all injuries or illnesses in a single emergency department visit. It is therefore important that you follow up closely with your physician. Call Dr. Carter tomorrow morning. Return for worsening symptoms or if you develop fever, vomiting, or any other concerning symptoms. Problem Qualifiers
== END 2017-03-20 14:05 | disposition home or self-care (01) ==
LOC: C.EDB 09:13
DX: G25.81 Restless legs syndrome (principal); M79.605 Pain in left leg; R07.9 Chest pain, unspecified; G40.909 Epilepsy, unspecified, not intractable, without status epilepticus; Z80.9 Family history of malignant neoplasm, unspecified; Z82.49 Family history of ischemic heart disease and other diseases of the circulatory system; Z79.899 Other long term (current) drug therapy

== ENCOUNTER 2018-08-09 01:57 | Inpatient (IN) ==
[2018-08-09] MEDS ORDERED: PANTOprazole 40 MG in SYRINGE 0 ML IV ONE (02:32)
[2018-08-09] MEDS ORDERED: SODIUM CHLORIDE 0.9% 1000ML 1,000 ML IV SCH (02:45)
[2018-08-09 02:56] LABS: INR 1.1 (0.9-1.1); Partial Thromboplastin Ratio 0.9; Partial Thromboplastin Time 23.3 Seconds (21.0-31.0); Prothrombin Time 10.9 Seconds (9.0-12.0)
[2018-08-09 02:57] LABS: Albumin Level 3.7 gm/dl (3.4-5.0); BUN Creatinine Ratio 15.5 (10-20); Basophils # (auto) 0.01 K/uL (0-0.2); Basophils % (auto) 0.1 %; Calcium 8.1 mg/dl (8.5-10.1); Creatinine Clr Calc Pharmacy 97.4 ml/min; Est GFR (Non-African American) 79.4; Hematocrit (blood only) 42.7 % (37-47); Hemoglobin 14.7 g/dL (12.0-16.0); Immature Granulocytes # (auto) 0.04 K/uL (0.00-0.02); Immature Granulocytes % (auto) 0.3 %; Lymphocytes # (auto) 0.94 K/uL (1.2-3.4); Lymphocytes % (auto) 6.2 %; Mean Corpuscular Hgb Conc 34.4 g/dL (32-36); Mean Corpuscular Volume 91.2 fL (80-100); Mean Platelet Volume 8.9 fL (7.4-10.4); Monocytes # (auto) 1.08 K/uL (0.11-0.59); Monocytes % (auto) 7.1 %; Neutrophils # (auto) 13.17 K/uL (1.4-6.5); Neutrophils % (auto) 86.3 %; Platelet Count 296 K/uL (130-400); Potassium 3.9 mmol/L (3.5-5.1); RDW Coefficient of Variation 13.4 % (11.5-14.5); Red Blood Count 4.68 M/uL (4.2-5.4); White Blood Count 15.24 K/uL (4.8-10.8)
[2018-08-09 02:59] LABS: Albumin Globulin Ratio 0.9 (0.9-2); Bilirubin,Total 0.3 mg/dl (0.2-1); Globulin 3.9 gm/dl (2.5-4.0); Total Protein 7.6 gm/dl (6.4-8.2)
[2018-08-09 03:12] LABS: Pregnancy Test, Serum Negative (Negative)
[2018-08-09] MEDS ORDERED: IOVERSOL 100ml IV PRN (03:25)
--- NOTE | 2018-08-09 03:29 | Emergency Department Note ---
History of Present Illness General Chief complaint: GI Assessment Stated complaint: ABD PAIN, BLOODY STOOL History of Present Illness Maximum Pain Intensity: 8 This 28-year-old presents to the ER complaining of abdominal pain with blood in stool Location: Abdomen Quality: Crampy Severity: Moderate Duration: Tonight Timing: Tonight Context: Patient was going the bathroom and was having pain and noticed blood in her stool and came in Modifying factors: better with nothing; worse with bowel movement Patient is concerned she has colon cancer. Her family member has this. She has not been checked for this. Patient denies chest pain, dyspnea, black stool , pencil stools, weight loss, night sweats, fever, chills. No other concerns per patient. Home Medications Home Medications Medication Instructions Recorded Confirmed Type buspirone 15 mg PO AMPM 08/09/18 08/09/18 History buspirone 30 mg PO HS 08/09/18 08/09/18 History carbamazepine 150 mg PO BID 08/09/18 08/09/18 History carbamazepine (mood stabiliz) 600 mg PO BID 08/09/18 08/09/18 History gabapentin 200 mg PO TID 08/09/18 08/09/18 History lorazepam 1 mg PO TID 08/09/18 08/09/18 History venlafaxine [Effexor XR] 150 mg PO QAM 08/09/18 08/09/18 History Allergies Allergy/AdvReac Type Severity Reaction Status Date / Time prednisone AdvReac Intermediate DILANTIN Verified 08/09/18 02:29 TOXICITY sulfamethoxazole AdvReac Intermediate BURNING,ALIX Verified 08/09/18 02:29 RRHEA trimethoprim AdvReac Intermediate BURNING,ALIX Verified 08/09/18 02:29 RRHEA Bactrim AdvReac Unknown BURNING,ALIX Verified 12/18/17 12:59 RRHEA Past Med/Surg History Medical History Seizure disorder (Chronic) Social History Feels Safe at Home: Yes Smoking Status: Former smoker Review of Systems All systems reviewed & are unremarkable except as noted in HPI & below Physical Exam Vital Signs Vital Signs - 24 hr 08/09/18 02:03 08/09/18 03:18 08/09/18 03:29 Temperature 36.9 C Temperature Source Oral Sepsis Recent Fever Within 48 Hours No Sepsis Action Taken by Nursing No Action Required Pulse Rate 91 H Pulse Rate [Right Finger] 87 Respiratory Rate 20 20 Respiratory Effort / Characteristics Non-Labored Spontaneous Non-Labored Spontaneous Respiratory Depth Normal Normal Respiratory Pattern Regular Regular Blood Pressure 116/75 Blood Pressure [Right Arm] 138/95 Blood Pressure Mean 88 Blood Pressure Mean [Right Arm] 109 Blood Pressure Position Sitting Blood Pressure Position [Right Arm] Lying Pulse Oximetry 97 99 98 Oxygen Delivery Method Room Air Room Air Room Air VITALS: Vitals are noted on the nurse's note and reviewed by myself. Vital signs stable. GENERAL: Anxious appearing female crying, in no acute distress, nondiaphoretic, well-developed well-nourished. SKIN: The skin was without rashes, erythema, edema, or bruising. There is no tenting of the skin. Capillary reflex less than 2 seconds. HEAD: Normocephalic atraumatic. EARS: External auditory canals clear, tympanic membranes pearly grayson without erythema or effusion bilaterally. EYES: Pupils equal round and reactive to light and accommodation. Conjunctivae without injection, sclerae without icterus. Extraocular movements intact. NOSE: Patent, turbinates without inflammation or discharge. MOUTH: Mucous membranes moist. Pharynx without erythema or exudate. Uvula midline. Airway patent. Tongue does not deviate. NECK: Supple without nuchal rigidity. No lymphadenopathy. No thyromegaly. Cervical spine is nontender. No JVD. HEART: Regular rate and rhythm without murmurs gallops or rubs. LUNGS: Clear to auscultation bilaterally without wheezes, rales or rhonchi. No retractions or accessory muscle use. ABDOMEN: Positive bowel sounds x 4. Normal tympanic percussion. Soft, tender to palpation lower abdomen, without masses or organomegaly. Zuniga sign negative. No guarding or rebound tenderness. No CVA tenderness Rectal exam: No fissures or tears, brown stool, guaiac positive. Production Support Analyst of the nurse present MUSCULOSKELETAL: No muscle atrophy, erythema, or edema noted. NEURO: Patient was alert and oriented to person place and time. Normal sensation to light and sharp touch. No focal neurological deficits. Course Administered Medications Sodium Chloride (Nss 1000ml) 1,000 mls @ 100 mls/hr IV .Q10H DWAYNE Stop: 08/09/18 12:44 Last Admin: 08/09/18 03:01 Dose: 100 mls/hr Ioversol (Optiray 320 100ml) 93 ml IV ONCE PRN PRN Reason: Interaction Checking Stop: 08/13/18 03:24 Last Admin: 08/09/18 03:25 Dose: 93 ml Discontinued Medications Dicyclomine HCl (Bentyl) 20 mg IM NOW ONE Stop: 08/09/18 03:31 Last Admin: 08/09/18 03:36 Dose: 20 mg Pantoprazole Sodium 40 mg/ (Syringe) 10 mls @ 5 mls/min IV NOW ONE Stop: 08/09/18 02:33 Last Admin: 08/09/18 03:01 Dose: 5 mls/min Ranitidine HCl 50 mg/ Dextrose 102 mls @ 200 mls/hr IV NOW STA Stop: 08/09/18 03:02 Last Infusion: 08/09/18 03:46 Dose: 0 mls/hr Admin: 08/09/18 03:01 Dose: 200 mls/hr Morphine Sulfate (Morphine Sulfate) 4 mg IV NOW STA Stop: 08/09/18 04:05 Last Admin: 08/09/18 04:17 Dose: 4 mg Medical Decision Making Medical Records Attestation: I reviewed the patient's medical records. Home Medications Current Medication List: was personally reviewed by me Laboratory Data Attestation: I reviewed the patient's lab results. Result diagrams: 08/09/18 02:23 08/09/18 02:23 Lab Results 08/09/18 08/09/18 08/09/18 Range/Units 02:23 02:23 02:23 WBC 15.24 H (4.8-10.8) K/uL RBC 4.68 (4.2-5.4) M/uL Hgb 14.7 (12.0-16.0) g/dL Hct 42.7 (37-47) % MCV 91.2 (80-100) fL MCH 31.4 (25-34) pg MCHC 34.4 (32-36) g/dL RDW Std Deviation 44.0 (36.4-46.3) fL RDW Coeff of Erika 13.4 (11.5-14.5) % Plt Count 296 (130-400) K/uL MPV 8.9 (7.4-10.4) fL Immature Gran % (Auto) 0.3 % Neut % (Auto) 86.3 % Lymph % (Auto) 6.2 % [place] % (Auto) 7.1 % Eos % (Auto) 0.0 % Baso % (Auto) 0.1 % Immature Gran # (Auto) 0.04 H (0.00-0.02) K/uL Neut # (Auto) 13.17 H (1.4-6.5) K/uL Lymph # (Auto) 0.94 L (1.2-3.4) K/uL [place] # (Auto) 1.08 H (0.11-0.59) K/uL Eos # (Auto) 0.00 (0-0.5) K/uL Baso # (Auto) 0.01 (0-0.2) K/uL PT 10.9 (9.0-12.0) Seconds INR 1.1 (0.9-1.1) APTT 23.3 (21.0-31.0) Seconds PTT Ratio 0.9 Sodium 137 (136-145) mmol/L Potassium 3.9 (3.5-5.1) mmol/L Chloride 107 (98-107) mmol/L Carbon Dioxide 26 (21-32) mmol/L Anion Gap 4.0 (3-11) BUN 15 (7-18) mg/dl Creatinine 0.96 (0.6-1.2) mg/dl Est Cr Clr Drug Dosing 97.4 ml/min Est GFR ( Amer) 92.0 Est GFR (Non-Af Amer) 79.4 BUN/Creatinine Ratio 15.5 (10-20) Glucose 107 H (70-99) mg/dl Calcium 8.1 L (8.5-10.1) mg/dl Total Bilirubin 0.3 (0.2-1) mg/dl AST 15 (15-37) U/L ALT 25 (12-78) U/L Alkaline Phosphatase 172 H (45-117) U/L Total Protein 7.6 (6.4-8.2) gm/dl Albumin 3.7 (3.4-5.0) gm/dl Globulin 3.9 (2.5-4.0) gm/dl Albumin/Globulin Ratio 0.9 (0.9-2) HCG, Qual (Negative) Blood Type Antibody Screen 08/09/18 08/09/18 Range/Units 02:23 02:23 WBC (4.8-10.8) K/uL RBC (4.2-5.4) M/uL Hgb (12.0-16.0) g/dL Hct (37-47) % MCV (80-100) fL MCH (25-34) pg MCHC (32-36) g/dL RDW Std Deviation (36.4-46.3) fL RDW Coeff of Erika (11.5-14.5) % Plt Count (130-400) K/uL MPV (7.4-10.4) fL Immature Gran % (Auto) % Neut % (Auto) % Lymph % (Auto) % [place] % (Auto) % Eos % (Auto) % Baso % (Auto) % Immature Gran # (Auto) (0.00-0.02) K/uL Neut # (Auto) (1.4-6.5) K/uL Lymph # (Auto) (1.2-3.4) K/uL [place] # (Auto) (0.11-0.59) K/uL Eos # (Auto) (0-0.5) K/uL Baso # (Auto) (0-0.2) K/uL PT (9.0-12.0) Seconds INR (0.9-1.1) APTT (21.0-31.0) Seconds PTT Ratio Sodium (136-145) mmol/L Potassium (3.5-5.1) mmol/L Chloride (98-107) mmol/L Carbon Dioxide (21-32) mmol/L Anion Gap (3-11) BUN (7-18) mg/dl Creatinine (0.6-1.2) mg/dl Est Cr Clr Drug Dosing ml/min Est GFR ( Amer) Est GFR (Non-Af Amer) BUN/Creatinine Ratio (10-20) Glucose (70-99) mg/dl Calcium (8.5-10.1) mg/dl Total Bilirubin (0.2-1) mg/dl AST (15-37) U/L ALT (12-78) U/L Alkaline Phosphatase (45-117) U/L Total Protein (6.4-8.2) gm/dl Albumin (3.4-5.0) gm/dl Globulin (2.5-4.0) gm/dl Albumin/Globulin Ratio (0.9-2) HCG, Qual Negative (Negative) Blood Type O Positive Antibody Screen NEGATIVE MDM Narrative Prior records/ancillary studies reviewed. Triage Nursing notes reviewed. Additional history obtained from the family. The patient's history was concerning for possible gastrointestinal bleeding. Differential diagnosis: Etiologies such as diverticulosis, AVM, coagulopathy, colitis, inflammatory bowel disease, malignancy, Melonie-Mae tear, esophagitis, peptic ulcer disease , variceal bleed, gastritis, epistaxis, fissure, hemorrhoids, as well as others were entertained. Physical exam: As above. The patients vital signs were stable. ER treatment provided: IV fluids, IV Protonix, Zantac, Bentyl IM On reassessment the patient felt better. Diagnostics interpreted by me: ECG: [] The labs revealed leukocytosis Stable H&H Imaging studies: CT ABDOMEN & PELVIS With Contrast: Abnormal wall thickening of the distal transverse colon, splenic flexure, and descending and sigmoid colon, consistent with infectious or inflammatory colitis. No free air or fluid collections. No bowel obstruction. Normal appendix. No diverticulitis. Radiologist: Renee Torres M.D. Consultation: A consultation was placed with Dr. Tee, hospitalist. The case was discussed and diagnostics were reviewed. The patient was evaluated in the ER for further treatment. This appears to be consistent with colitis with blood in stool. Medicine was consulted and will evaluate the patient. Patient is agreeable treatment plan of admission. Repeat abdominal exam and patient still has tenderness. Patient was in the crying believing that she has colon cancer. She was informed there was no mass seen on CAT scan. By the evaluation outlined above emergent etiologies such as esophageal perforation, peptic ulcer disease, variceal bleed , coagulopathy, gastritis, epistaxis, as well as others were deemed relatively unlikely. The pt informed about the findings as listed above. All questions were answered and pleased with the treatment. Case reviewed with my attending The chart was completed utilizing [employer] voice recognition software. Grammatical errors, random word insertions, pronoun errors, and incomplete sentences are an occassional consequence of this system due to software limitations, ambient noise, and hardware issues. Any formal questions or concerns about the content, text, or information contained within the body of this dictation should be directly addressed to the physician clinical research assistant for clarification. Impression & Plan Colitis, Blood in stool Discharge Plan Visit Data Chief Complaint: GI Assessment Stated Complaint: ABD PAIN, BLOODY STOOL ED Provider: Sara Abebe ED Midlevel Provider: Deja Doherty Discharge Problem: Colitis, Blood in stool Patient Disposition: Being Evaluated by Hospitalist Condition: Good Forms Stand Alone Forms: My [facility] Prescriptions Prescriptions: No Action carbamazepine 100 mg Tablet Extended Release 12 Hr 150 mg PO BID RF: 0 buspirone 30 mg Tablet 30 mg PO HS RF: 0 buspirone 15 mg Tablet 15 mg PO AMPM RF: 0 carbamazepine (mood stabiliz) 300 mg Capsule, Er Multiphase 12 Hr 600 mg PO BID RF: 0 venlafaxine [Effexor XR] 150 mg Capsule,Extended Release 24hr 150 mg PO QAM RF: 0 gabapentin 100 mg Capsule 200 mg PO TID RF: 0 lorazepam 1 mg Tablet 1 mg PO TID RF: 0 Referrals Referrals: Arabella Noland DO [Primary Care Provider] -
[2018-08-09] MEDS ORDERED: DICYCLOMINE HCL 10 MG/ML 2 ML AMP/VIAL IM ONE (03:30)
[2018-08-09] MEDS ORDERED: MoRPHine SULFATE 4 MG/ML 1 ML CARP\\VIAL IV STA (04:04)
[2018-08-09] MEDS ORDERED: ALBUTEROL HFA 8 GM INHALER INH PRN (07:05)
[2018-08-09] MEDS ORDERED: LORazepam 0.5 MG/1 ML VIAL IV STA (07:05)
[2018-08-09] MEDS ORDERED: NITROGLYCERIN SL 0.4 MG/TAB TAB SL PRN (07:05)
[2018-08-09 07:35] LABS: Basophils # (auto) 0.01 K/uL (0-0.2); Basophils % (auto) 0.1 %; Eosinophils # (auto) 0.01 K/uL (0-0.5); Eosinophils % (auto) 0.1 %; Hematocrit (blood only) 40.2 % (37-47); Hemoglobin 13.6 g/dL (12.0-16.0); Immature Granulocytes # (auto) 0.03 K/uL (0.00-0.02); Immature Granulocytes % (auto) 0.3 %; Lymphocytes # (auto) 1.15 K/uL (1.2-3.4); Lymphocytes % (auto) 11.7 %; Mean Corpuscular Hgb Conc 33.8 g/dL (32-36); Mean Corpuscular Volume 90.7 fL (80-100); Mean Platelet Volume 8.6 fL (7.4-10.4); Monocytes # (auto) 0.66 K/uL (0.11-0.59); Monocytes % (auto) 6.7 %; Neutrophils % (auto) 81.1 %; Platelet Count 246 K/uL (130-400); RDW Coefficient of Variation 13.1 % (11.5-14.5); RDW Standard Deviation 43.4 fL (36.4-46.3); Red Blood Count 4.43 M/uL (4.2-5.4); White Blood Count 9.86 K/uL (4.8-10.8)
[2018-08-09] MEDS: SODIUM CHLORIDE 0.9% 1000ML 1,000 ML IV SCH ×2 (07:42→18:12)
[2018-08-09] MEDS: HYDROmorphone INJ 0.5 MG/0.5 ML SYR IV PRN ×5 (07:52→20:48)
[2018-08-09] MEDS: PHENYTOIN SODIUM ER 100 MG CAP PO SCH ×2 (07:53→20:50)
--- NOTE | 2018-08-09 07:54 | CT Scan Report ---
CT SCAN OF THE ABDOMEN AND PELVIS WITH IV CONTRAST CLINICAL HISTORY: Epigastric abdominal pain. GI bleeding. COMPARISON STUDY: Abdominal CT dated 09/15/2008. TECHNIQUE: Following the IV administration of 93 cc of Optiray 320, CT scan of the abdomen and pelvi s is performed from the lung bases to the proximal femora. Images are reviewed in the axial, sagittal , and coronal planes. IV contrast was administered without complication. A dose lowering technique wa s utilized adhering to the principles of ALARA. CT DOSE: 830.47 mGy.cm FINDINGS: Lung bases: The heart is normal in size and without pericardial effusion. The lung bases are clear. Liver: The contrast-enhanced liver is normal in size, contour, and attenuation. There is no intrahepa tic biliary ductal dilatation. There is an indeterminant 1.6 cm hypodense lesion in the inferior rig ht lobe of liver seen on image #167. This was not clearly present on the 2009 examination. An indeter minant hypodensity on image #136 was also not seen previously. The hepatic veins and main portal vein s are patent. There is thrombus of intrahepatic portal branches seen in the right lower image #86. Gallbladder: Contracted. Spleen: Normal in size and attenuation. Pancreas: Unremarkable. Adrenal glands: Unremarkable. Kidneys: The contrast enhanced kidneys are normal in size and without hydronephrosis. The kidneys enh ance symmetrically. A subcentimeter cortical hypodensity in the left lower pole likely represents a c yst but is too small for definitive characterization. Abdominal vasculature: The abdominal aorta is normal in course and caliber. Bowel: There is mild wall thickening with mucosal hyperemia and pericolonic stranding involving the l eft colon, greatest involving the distal transverse and descending colon. The appearance is consisten t with a mild colitis. No bowel obstruction is identified. The appendix is well-visualized and som l. Peritoneum: There is no intraperitoneal free air or abdominal ascites. Lymphadenopathy: None. Pelvic viscera: The bladder is decompressed and not well evaluated. The uterus and adnexa are normal as visualized. Bilateral ovarian follicles are observed. Skeletal structures: No lytic or blastic lesions are seen. IMPRESSION: 1. Findings are consistent with a mild nonspecific colitis involving predominantly the left colon. Th is is likely on an infectious or inflammatory basis in this age group. 2. There is trace thrombus within a peripheral intrahepatic branch of the right portal vein. This is new from 2008 and of indeterminant significance. 3. There are 2 low attenuation hepatic lesions which measure up to 1.6 cm. These are pathologically i ndeterminant, but were not seen on the 09/15/2008 examination. Follow-up with a nonemergent dedicated MRI of the liver is recommended for further assessment. 4. Additional findings as above. Electronically signed by: Santos Garcia M.D. 08/09/2018 7:52 AM
[2018-08-09 08:02] LABS: BUN Creatinine Ratio 13.5 (10-20); Calcium 8.2 mg/dl (8.5-10.1); Creatinine Clr Calc Pharmacy 116.8 ml/min; Est GFR (African American) 114.7; Est GFR (Non-African American) 98.9; Potassium 4.1 mmol/L (3.5-5.1)
[2018-08-09] MEDS: AMANTADINE HCL 100 MG CAPSULE PO SCH ×2 (08:04→20:51)
[2018-08-09] MEDS: VENLAFAXINE HCL XR 150 MG CAPXR PO SCH (08:04)
[2018-08-09] MEDS: GABAPENTIN 300 MG CAP PO SCH ×3 (08:04→20:51)
[2018-08-09] MEDS: PANTOprazole 40 MG in SYRINGE 0 ML IV SCH ×2 (08:05→20:49)
[2018-08-09] MEDS: LORazepam 1 MG TAB PO SCH ×3 (09:24→20:48)
[2018-08-09] MEDS: CARBAMAZEPINE 100 MG CHEW TAB PO SCH ×2 (09:25→20:52)
[2018-08-09] MEDS: CARBAMAZEPINE 200 MG TABCR PO SCH ×2 (09:25→20:53)
[2018-08-09] MEDS ORDERED: DICYCLOMINE HCL 10 MG CAP PO PRN (10:11)
--- NOTE | 2018-08-09 10:32 | History and Physical Report ---
DATE OF ADMISSION: 08/09/2018 CHIEF COMPLAINT: Fever, abdominal pain. HISTORY OF PRESENT ILLNESS: This is a 28-year-old female with past medical history significant for seizure disorder, chronic back pain, myoclonus,dystonia, anxiety, history of medical marijuana use, diarrhea, benign neoplasm of pituitary gland. Currently, the patient is wheelchair bound because of left focal dystonia of leg. She had multiple EEG studies over the years and the EEGs were okay. Serial 72hour tracing did not show anything. She has also trialed Sinemet thinking for possible focal dystonia, but the patient apparently did not respond to Tegretol,and it was ruled out.. She also was [facility], but no obvious diagnosis was made. Currently, she is on Dilantin, Ativan, carbamazepine, and also she is taking amantadine, Neurontin for pain. Today in the evening, she went out to eat. She ate cheesesteak and after coming home, late in the night she had severe abdominal pain and she had few episodes of bloody bowel movement which brought her to the ER. She is worried that she has colon cancer as she has some other family members with colon cancer. In the ER, she had couple of episodes of bowel movements which had some blood in the stools. In the ER, her Hemoccult was done which was positive for Hemoccult blood. Stool looked brown in color. Currently has significant abdominal pain, no nausea, no vomiting, no chest pain, no shortness of breath, no cough, no fever, no chills, no headache, no blurred visions, no sore throat. She is mostly wheelchair bound, never had this kind of pain before. ALLERGIES: BACTRIM AND PREDNISONE. PAST MEDICAL HISTORY: As mentioned above. PAST SURGICAL HISTORY: Dental surgery, ligation of oviducts, treatment of incomplete . MEDICATIONS: The patient is on Ativan 1 mg p.o. t.i.d., carbamazepine 600 mg p.o. b.i.d., carbamazepine 150 mg p.o. b.i.d., phenytoin 200 mg in a.m. and 10 mg in p.m., albuterol 2 puffs p.o. 4 hours p.r.n., gabapentin 300 mg p.o. t.i.d., amantadine 100 mg p.o. b.i.d., Effexor XR 150 mg p.o. daily. FAMILY HISTORY: Significant for mother has depression, hyperlipidemia. Father has hypertension, hyperlipidemia, heart disorder. Brother has asthma. Grandmother maternal has arthritis. Sister has colon cancer. SOCIAL HISTORY: , lives with her and kids. Former smoker, quit in 2009. Alcohol rarely. Uses medical marijuana. REVIEW OF SYMPTOMS: As per HPI. Rest of review of symptoms negative. PHYSICAL EXAMINATION: GENERAL: The patient is of moderate build, not in acute distress. VITAL SIGNS: Temperature 36.9, pulse 87, respiratory rate 20, blood pressure 138/90, oxygen 98% room air. HEENT: No pallor, no icterus. Pupils equal, round, and reactive to light. NECK: No JVD. No neck masses. No carotid bruits. CARDIOVASCULAR: S1, S2 heard, regular rate and rhythm, no murmur, no gallop. RESPIRATORY SYSTEM: Normal AP diameter. No accessory muscle use. No wheezing, no crackles. ABDOMEN: Soft, bowel sounds present. Diffuse abdominal tenderness, no guarding present. No distention. CENTRAL NERVOUS SYSTEM: Cranial nerves II-XII grossly intact. Nonfocal. EXTREMITIES: No edema, no erythema. LABS: WBC 15.2, hemoglobin 14.7, hematocrit 42.7, platelets 296. PT 10.9, INR 1.1, APTT 23.3. Sodium 137, potassium 3.9, chloride 107, bicarbonate 26, BUN 15, creatinine 0.9, serum glucose 107, calcium 8.1, total bilirubin 0.3, AST 15, ALT 25, alkaline phosphatase 172, hCG negative. CT of abdomen and pelvis shows colitis. EKG: Shows normal sinus rhythm with rate of 92, nonspecific T-wave abnormality, no acute ST changes seen. ASSESSMENT AND PLAN: This is a 28-year-old female who presents with severe abdominal pain. 1. Severe abdominal pain with bloody bowel movement. CAT scan showing colitis infectious versus inflammatory.Full report pending. Hemoglobin stable at 14.7, we will follow serial H and H, IV Protonix 40 b.i.d. We will keep her n.p.o., IV fluids, IV antiemetics, IV pain meds and consult GI for further recommendation.Will follow stool cultures and cdiff. 2. History of seizure disorder. Continue home medication of Ativan, carbamazepine, and phenytoin. We will follow the Dilantin levels. 3. History of chronic back pain on Neurontin and amantadine. Follows with Neurology. 4. History of anxiety state on Ativan. 5. Depression on Effexor. 6. Deep venous thrombosis prophylaxis, SCDs for now. 7. Disposition: Close monitoring in the med/surg tele. Level I, full code. MTDD
--- NOTE | 2018-08-09 11:48 | Gastrointestinal Consultation ---
Date of Consultation August 09, 2018 Assessment & Plan (1) Blood in stool: (2) Colitis: Pt is a 28 y/o female w sudden onset of lower abd pain last night followed by several bouts of loose, bloody stools. H/H normal. CT abd/pelvis w contrast showed mild nonspecific colitis involving predominantly the left colon. CT also showed hepatic lesions up to 1.6cm and mild thrombus of peripheral intrahepatic branch of R portal vein. No family hx of IBD but sister dx with colon ca at age 21 - OK for CL diet - Start Cipro/Flagyl IV antibx - Check stool cx and Cdiff - MRI liver to further eval the liver lesion and thrombus - Colonoscopy within 4 week's time. Supervising Physician Co-Signing Physician Notes I performed a history and physical examination of the patient, including specifically on physical exam - soft, nontender abdomen. I have discussed the patient's management with Jill. Please refer to the nurse practitioner's note for the documented findings and plan of care. 28 years old female patient admitted with abdominal pain and bloody loose stool , found to have left sided colitis on imaging, her H/H is normal. Incidentally CT scan showed 1.6 hypodense liver lesion and a smoll side branch intrahepatic portal thrombus. No fever or leukocytosis. Her pain resolved and bleeding stopped, no BM yet and she tolerated clear liquid diet. DDx include infections colitis, Ischemic or IBD and malignancy in view of her strong FHx (sister at age 21). Recommend: IV Hydration, ABx. Liver lesion needs further evaluation with MRI. Unclear etiology of the intrahepatic portal thrombus, she needs hypercoagulable work up for the small intrahepatic portal vein thrombus and Hematology evaluation and will defer decision to hematology about anticoagulation. Colonoscopy as OP in 4 weeks as bleeding had stopped now. History of Present Illness Reason for Consultation: Abdominal pain, rectal bleeding Requesting Physician: Dr. Jamila Joseph Attending Physician: Dr. Lenard Gomez History of Present Illness Pt is a 28 y/o female w PMHx of seizure disorder, chronic back pain, anxiety, benign pituitary neoplasm, L focal dystonia of leg, use of medical marijuana who presented to ED yesterday for c/o abd pain and diarrhea, rectal bleeding. She was at usual state of health until last night around 9P when she started having sharp pain on mild lower abd area spreading across lower abdomen. Several hours and with increased pain intensity later she started having loose stools. After initial BM she noticed bright red blood mixed in stools. She had a few bouts of BMs then went to ED for evaluation. In ED had 2 more bouts of bloody BM but none since admitted to floor. She denies any fever, chills, CP, SOB, N/V, rectal pain or itching. Usually bowels move daily, stools firm. She denies sick contact. Did eat cheesesteak for dinner last night. No recent new meds or antibx. Upon eval in ED, labs showed initially increased WBC 15K but w/o antibx repeat today normalize to 9K. H/H normal. Normal coags, CMP also unremarkable. LFTs normal w mild alk phos elevation to 172. CT abd/pelvis w contrast: showed signs of mild nonspecific colitis involving predominantly the left colon. There is trace thrombus within a peripheral intrahepatic branch of the right portal vein. This is new from 2008 and of indeterminant significance.There are 2 low attenuation hepatic lesions which measure up to 1.6 cm. These are pathologically indeterminant, but were not seen on the 09/15/2008 examination. Follow-up with a nonemergent dedicated MRI of the liver is recommended for further assessment. She denies any NSAIDs, tobacco, ETOH. + medical marijuana. No family hx of IBD. Sister dx of colon ca at age 21, also hx of diverticulitis. Pt has never had a colonoscopy before. Allergies Allergy/AdvReac Type Severity Reaction Status Date / Time prednisone AdvReac Intermediate DILANTIN Verified 08/09/18 02:29 TOXICITY sulfamethoxazole AdvReac Intermediate BURNING,ALIX Verified 08/09/18 02:29 RRHEA trimethoprim AdvReac Intermediate BURNING,ALIX Verified 08/09/18 02:29 RRHEA Bactrim AdvReac Unknown BURNING,ALIX Verified 12/18/17 12:59 RRHEA Home Medications Home Medications Medication Instructions Recorded Confirmed Type Dilantin Extended 300 mg PO PM 08/09/18 08/09/18 History albuterol sulfate 2 puff INHALATION Q4H PRN 08/09/18 08/09/18 History amantadine HCl 100 mg PO BID 08/09/18 08/09/18 History carbamazepine 150 mg PO BID 08/09/18 08/09/18 History carbamazepine (mood stabiliz) 600 mg PO BID 08/09/18 08/09/18 History gabapentin 300 mg PO TID 08/09/18 08/09/18 History lorazepam 1 mg PO TID 08/09/18 08/09/18 History phenytoin sodium extended 200 mg PO DAILYBB 08/09/18 08/09/18 History [Dilantin Extended] venlafaxine [Effexor XR] 150 mg PO QAM 08/09/18 08/09/18 History Patient History Medical History Seizure disorder (Chronic) Asthma Social History Current Living Situation: Spouse Feels Safe at Home: Yes Safety Concerns: Feels Safe At This Time Smoking Status: Former smoker Hx Alcohol Use: No Hx Substance Use: No Beliefs That Will Affect Care: None Preferred Language: [place] Communication Ability: Effective Packing Room Inspector Required: Yes Review of Systems Constitutional: as per Subjective / HPI Respiratory: no cough and no dyspnea Cardiovascular: no chest pain, no lightheadedness and no edema Gastrointestinal: + abdominal pain, + diarrhea/loose stools and + blood in stools; no nausea and no vomiting Physical Exam 2 Vital Signs (Past 24 Hours): Last Vital Signs Temp 37.0 C 08/09/18 08:08 Pulse 79 08/09/18 09:11 Resp 22 08/09/18 08:08 BP 112/72 08/09/18 08:08 Pulse Ox 100 08/09/18 08:08 Constitutional: WD/WN, vitals as above well groomed, cooperative and comfortable Eyes: PERRL, conjunctivae normal, anicteric sclerae ENMT: external ear and nose normal, oropharynx normal Respiratory: normal respiratory effort, lungs clear to auscultation Cardiovascular: RRR, no murmur, no edema Gastrointestinal (Abdomen): Inspection/Auscultation: normal bowel sounds; abdomen not distended Percussion/Palpation: + abdomen tender (across lower quadrants) and abdomen soft Rectal Exam: no hemorrhoids, no rectal fissure and no rectal lesions Skin: no rashes, warm and dry no jaundice Neurologic: Motor/Sensory: no asterixis Psychiatric: A+Ox3, euthymic affect Lymphatic: no lymphedema Results & Data Laboratory Results Laboratory Results - last 72 hr 08/09/18 08/09/18 08/09/18 02:23 02:23 02:23 WBC 15.24 H RBC 4.68 Hgb 14.7 Hct 42.7 MCV 91.2 MCH 31.4 MCHC 34.4 RDW Std Deviation 44.0 RDW Coeff of Erika 13.4 Plt Count 296 MPV 8.9 Immature Gran % (Auto) 0.3 Neut % (Auto) 86.3 Lymph % (Auto) 6.2 [place] % (Auto) 7.1 Eos % (Auto) 0.0 Baso % (Auto) 0.1 Immature Gran # (Auto) 0.04 H Neut # (Auto) 13.17 H Lymph # (Auto) 0.94 L [place] # (Auto) 1.08 H Eos # (Auto) 0.00 Baso # (Auto) 0.01 PT 10.9 INR 1.1 APTT 23.3 PTT Ratio 0.9 Sodium 137 Potassium 3.9 Chloride 107 Carbon Dioxide 26 Anion Gap 4.0 BUN 15 Creatinine 0.96 Est Cr Clr Drug Dosing 97.4 Est GFR ( Amer) 92.0 Est GFR (Non-Af Amer) 79.4 BUN/Creatinine Ratio 15.5 Glucose 107 H Calcium 8.1 L Total Bilirubin 0.3 AST 15 ALT 25 Alkaline Phosphatase 172 H Total Protein 7.6 Albumin 3.7 Globulin 3.9 Albumin/Globulin Ratio 0.9 HCG, Qual Blood Type Antibody Screen 08/09/18 08/09/18 08/09/18 02:23 02:23 07:17 WBC 9.86 RBC 4.43 Hgb 13.6 Hct 40.2 MCV 90.7 MCH 30.7 MCHC 33.8 RDW Std Deviation 43.4 RDW Coeff of Erika 13.1 Plt Count 246 MPV 8.6 Immature Gran % (Auto) 0.3 Neut % (Auto) 81.1 Lymph % (Auto) 11.7 [place] % (Auto) 6.7 Eos % (Auto) 0.1 Baso % (Auto) 0.1 Immature Gran # (Auto) 0.03 H Neut # (Auto) 8.00 H Lymph # (Auto) 1.15 L [place] # (Auto) 0.66 H Eos # (Auto) 0.01 Baso # (Auto) 0.01 PT INR APTT PTT Ratio Sodium Potassium Chloride Carbon Dioxide Anion Gap BUN Creatinine Est Cr Clr Drug Dosing Est GFR ( Amer) Est GFR (Non-Af Amer) BUN/Creatinine Ratio Glucose Calcium Total Bilirubin AST ALT Alkaline Phosphatase Total Protein Albumin Globulin Albumin/Globulin Ratio HCG, Qual Negative Blood Type O Positive Antibody Screen NEGATIVE 08/09/18 07:17 WBC RBC Hgb Hct MCV MCH MCHC RDW Std Deviation RDW Coeff of Erika Plt Count MPV Immature Gran % (Auto) Neut % (Auto) Lymph % (Auto) [place] % (Auto) Eos % (Auto) Baso % (Auto) Immature Gran # (Auto) Neut # (Auto) Lymph # (Auto) [place] # (Auto) Eos # (Auto) Baso # (Auto) PT INR APTT PTT Ratio Sodium 137 Potassium 4.1 Chloride 106 Carbon Dioxide 26 Anion Gap 6.0 BUN 11 Creatinine 0.80 Est Cr Clr Drug Dosing 116.8 Est GFR ( Amer) 114.7 Est GFR (Non-Af Amer) 98.9 BUN/Creatinine Ratio 13.5 Glucose 98 Calcium 8.2 L Total Bilirubin AST ALT Alkaline Phosphatase Total Protein Albumin Globulin Albumin/Globulin Ratio HCG, Qual Blood Type Antibody Screen
[2018-08-09 13:14] LABS: Hematocrit (blood only) 39.6 % (37-47); Hemoglobin 13.2 g/dL (12.0-16.0)
[2018-08-09] MEDS: CIPROFLOXACIN 400 MG/200 ML BAG IV SCH ×2 (14:32→22:56)
[2018-08-09] MEDS: metroNIDAZOLE 500 MG/100 ML BAG IV SCH ×2 (14:32→21:03)
--- NOTE | 2018-08-09 16:25 | Oncology Consultation ---
Date of Consultation August 09, 2018 Assessment & Plan (1) Colitis: * GI recs: Start Cipro/Flagyl IV antibx, Check stool cx and Cdiff, colonoscopy in 4 weeks * No anemia on CBCD despite GI bleeding, trend CBCD daily while admitted * no FH of IBD * Patient on liquid clears (2) Hepatic vein thrombosis: * Patient will need hypercaog work up, Proteins C+S, Factor V Leiden, Prothrombin gene mutation, antithrombin 3, APS work up- ordered * Spoke with Dr. Daniels, patient will need started on a Lovenox with bridge to warfarin, GI states patient is clear from their standpoint to start anticoag * Dr. Daniels recommends prophylactic dose 40 mg SC of Lovenox until patient is more stable from GI bleeding * Warfarin goal 2-3 (3) Liver lesion, right lobe: * MRI abd pending * Neoplasm in differential, needs r/o with FH of sister with colon cancer at age 21 Thanks for the consult. Dr. Daniels is the attending rebar fabricator- please see her addendum. Attending note I performed a history and physical on the patient and discussed the history and physical and plan with Carmen Liu PA-C and agree with above note. Please see her note for the details 28 year old female admitted with acute lower abdominal pain and bloody diarrhea , found to have nonspecific colitis on CT scan and thrombus of intrahepatic portal branches seen in the right lobe as well as an indeterminant liver lesion. She states that she is still having bloody bowel movements since admission. She denies any pain in right abdomen. she denies any prior history of blood clot She is mostly wheelchair bound due to dystonia she states that her Mother and father have heart disorder. she said one of her paternal grandparent was on a blood thinner but she is not certain if was on for blood clot or heart disorder. grandmother has brain tumor WBC was elevated to 15 range on admission but has normalized and she is on IV antibiotics Gen: well developed well nourished NAD HEENT: Anicteric no pallor Lungs: CTAB CV: S1 S2 RRR Abd: soft NT/ND, obese ext: no edema no calf tenderness neuro: alert and oriented x3 labs reviewed portal vein thrombosis in setting of nonspecific colitis - hypercoagulable workup was ordered and recommend monitor serial cbc. She reports still having large amts of blood in stool since admitted. I spoke to Dr Joseph to put on lovenox 40mg SC at this time and then transition to therapeutic dose lovenox dose if cbc remains stable and bridge to coumadin for goal INR 2 to 3 once no further GI bleed or procedure planned this admission. MRI liver pending follow up in the office upon discharge. thank you for consult History of Present Illness Attending Physician: Jamila Joseph MD History of Present Illness Ms. Powers is a 28 yo F new to the consulting Hematology service. She has a PMH of seizure disorder, chronic back pain, anxiety, benign pituitary neoplasm, L focal dystonia of leg, use of medical marijuana. She presented to ER on 08/08/18 for acute onset of abdominal pain associated with bloody diarrhea. On work up, she had a CT that revealed a left sided colitis and indeterminate liver lesion of right lobe and an intrahepatic thrombus- intrahepatic portal branches seen in the right lower. She was admitted for E+M. GI evaluated the patient and ordered follow up MRI, order Cipro and Flagyl IV. Anticoag deferred to Hematology. She reportedly has FH of a sister diagnosed with colon CA at 21 yo but has no further info, sister is living. Additional history obtained from the patient at bedside. She states yesterday she started with abdominal pain and bloody diarrhea. She states she has never had an episode like this prior. She states as a teen she was diagnosed with IBS. She states she has had about 4 episodes today of bloody diarrhea. She is having significant cramps. She denies nausea and is on liquid clears. She states her last seizure was 6 months, follows with Dr. Carter. She denies dyspnea; states she has been having a cough after vaping marijuana which can be severe and make her vomit clear fluid. Her LMP was approx 2 months ago, s/p tubal ligation. She denies LE edema/pain. She is wheelchair bound for past 4-5 months due to LLE dystonia, seeing movement disorder specialist at [facility], no real cause identified per the patient. Allergies Allergy/AdvReac Type Severity Reaction Status Date / Time prednisone AdvReac Intermediate DILANTIN Verified 08/09/18 02:29 TOXICITY sulfamethoxazole AdvReac Intermediate BURNING,ALIX Verified 08/09/18 02:29 RRHEA trimethoprim AdvReac Intermediate BURNING,ALIX Verified 08/09/18 02:29 RRHEA Bactrim AdvReac Unknown BURNING,ALIX Verified 12/18/17 12:59 RRHEA Home Medications Home Medications Medication Instructions Recorded Confirmed Type Dilantin Extended 300 mg PO PM 08/09/18 08/09/18 History albuterol sulfate 2 puff INHALATION Q4H PRN 08/09/18 08/09/18 History amantadine HCl 100 mg PO BID 08/09/18 08/09/18 History carbamazepine 150 mg PO BID 08/09/18 08/09/18 History carbamazepine (mood stabiliz) 600 mg PO BID 08/09/18 08/09/18 History gabapentin 300 mg PO TID 08/09/18 08/09/18 History lorazepam 1 mg PO TID 08/09/18 08/09/18 History phenytoin sodium extended 200 mg PO DAILYBB 08/09/18 08/09/18 History [Dilantin Extended] venlafaxine [Effexor XR] 150 mg PO QAM 08/09/18 08/09/18 History Patient History Medical History Seizure disorder (Chronic) Asthma Social History Current Living Situation: Spouse Feels Safe at Home: Yes Safety Concerns: Feels Safe At This Time Smoking Status: Former smoker Hx Alcohol Use: No Hx Substance Use: No Beliefs That Will Affect Care: None Preferred Language: [place] Communication Ability: Effective Upholsterer Limousine And Hearse Required: Yes Review of Systems See HPI Physical Exam 2 Vital Signs (Past 24 Hours): Last Vital Signs Temp 36.9 C 08/09/18 13:13 Pulse 98 H 08/09/18 15:02 Resp 17 08/09/18 13:13 BP 108/70 08/09/18 13:13 Pulse Ox 97 08/09/18 13:13 Constitutional: well developed, well nourished, + acute distress and + overweight Neck: trachea midline Respiratory: normal respiratory effort, lungs clear to auscultation Cardiovascular: RRR, no murmur, no edema Gastrointestinal (Abdomen): Inspection/Auscultation: normal bowel sounds Percussion/Palpation: + abdomen tender and abdomen soft; no guarding Skin: no rashes, warm and dry Neurologic: awake Lymphatic: no cervical lymphadenopathy Results & Data Laboratory Results Laboratory Results - last 72 hr 08/09/18 08/09/18 08/09/18 02:23 02:23 02:23 WBC 15.24 H RBC 4.68 Hgb 14.7 Hct 42.7 MCV 91.2 MCH 31.4 MCHC 34.4 RDW Std Deviation 44.0 RDW Coeff of Erika 13.4 Plt Count 296 MPV 8.9 Immature Gran % (Auto) 0.3 Neut % (Auto) 86.3 Lymph % (Auto) 6.2 [place] % (Auto) 7.1 Eos % (Auto) 0.0 Baso % (Auto) 0.1 Immature Gran # (Auto) 0.04 H Neut # (Auto) 13.17 H Lymph # (Auto) 0.94 L [place] # (Auto) 1.08 H Eos # (Auto) 0.00 Baso # (Auto) 0.01 PT 10.9 INR 1.1 APTT 23.3 PTT Ratio 0.9 Sodium 137 Potassium 3.9 Chloride 107 Carbon Dioxide 26 Anion Gap 4.0 BUN 15 Creatinine 0.96 Est Cr Clr Drug Dosing 97.4 Est GFR ( Amer) 92.0 Est GFR (Non-Af Amer) 79.4 BUN/Creatinine Ratio 15.5 Glucose 107 H Calcium 8.1 L Total Bilirubin 0.3 AST 15 ALT 25 Alkaline Phosphatase 172 H Total Protein 7.6 Albumin 3.7 Globulin 3.9 Albumin/Globulin Ratio 0.9 HCG, Qual Blood Type Antibody Screen 08/09/18 08/09/18 08/09/18 02:23 02:23 07:17 WBC 9.86 RBC 4.43 Hgb 13.6 Hct 40.2 MCV 90.7 MCH 30.7 MCHC 33.8 RDW Std Deviation 43.4 RDW Coeff of Erika 13.1 Plt Count 246 MPV 8.6 Immature Gran % (Auto) 0.3 Neut % (Auto) 81.1 Lymph % (Auto) 11.7 [place] % (Auto) 6.7 Eos % (Auto) 0.1 Baso % (Auto) 0.1 Immature Gran # (Auto) 0.03 H Neut # (Auto) 8.00 H Lymph # (Auto) 1.15 L [place] # (Auto) 0.66 H Eos # (Auto) 0.01 Baso # (Auto) 0.01 PT INR APTT PTT Ratio Sodium Potassium Chloride Carbon Dioxide Anion Gap BUN Creatinine Est Cr Clr Drug Dosing Est GFR ( Amer) Est GFR (Non-Af Amer) BUN/Creatinine Ratio Glucose Calcium Total Bilirubin AST ALT Alkaline Phosphatase Total Protein Albumin Globulin Albumin/Globulin Ratio HCG, Qual Negative Blood Type O Positive Antibody Screen NEGATIVE 08/09/18 08/09/18 07:17 12:58 WBC RBC Hgb 13.2 Hct 39.6 MCV MCH MCHC RDW Std Deviation RDW Coeff of Erika Plt Count MPV Immature Gran % (Auto) Neut % (Auto) Lymph % (Auto) [place] % (Auto) Eos % (Auto) Baso % (Auto) Immature Gran # (Auto) Neut # (Auto) Lymph # (Auto) [place] # (Auto) Eos # (Auto) Baso # (Auto) PT INR APTT PTT Ratio Sodium 137 Potassium 4.1 Chloride 106 Carbon Dioxide 26 Anion Gap 6.0 BUN 11 Creatinine 0.80 Est Cr Clr Drug Dosing 116.8 Est GFR ( Amer) 114.7 Est GFR (Non-Af Amer) 98.9 BUN/Creatinine Ratio 13.5 Glucose 98 Calcium 8.2 L Total Bilirubin AST ALT Alkaline Phosphatase Total Protein Albumin Globulin Albumin/Globulin Ratio HCG, Qual Blood Type Antibody Screen Diagnostic Findings CT abd/pelvis from 08/09/18: Lung bases: The heart is normal in size and without pericardial effusion. The lung bases are clear. Liver: The contrast-enhanced liver is normal in size, contour, and attenuation. There is no intrahepatic biliary ductal dilatation. There is an indeterminant 1.6 cm hypodense lesion in the inferior right lobe of liver seen on image #167. This was not clearly present on the 2009 examination. An indeterminant hypodensity on image #136 was also not seen previously. The hepatic veins and main portal veins are patent. There is thrombus of intrahepatic portal branches seen in the right lower image #86. Gallbladder: Contracted. Spleen: Normal in size and attenuation. Pancreas: Unremarkable. Adrenal glands: Unremarkable. Kidneys: The contrast enhanced kidneys are normal in size and without hydronephrosis. The kidneys enhance symmetrically. A subcentimeter cortical hypodensity in the left lower pole likely represents a cyst but is too small for definitive characterization. Abdominal vasculature: The abdominal aorta is normal in course and caliber. Bowel: There is mild wall thickening with mucosal hyperemia and pericolonic stranding involving the left colon, greatest involving the distal transverse and descending colon. The appearance is consistent with a mild colitis. No bowel obstruction is identified. The appendix is well-visualized and normal. Peritoneum: There is no intraperitoneal free air or abdominal ascites. Lymphadenopathy: None. Pelvic viscera: The bladder is decompressed and not well evaluated. The uterus and adnexa are normal as visualized. Bilateral ovarian follicles are observed. Skeletal structures: No lytic or blastic lesions are seen.
[2018-08-09] MEDS ORDERED: GADOXETATE DISODIUM IV PRN (16:32)
--- NOTE | 2018-08-09 16:42 | Hospitalist Progress Note ---
Date of Service August 09, 2018 Assessment & Plan (1) Colitis: Admitted with severe lower abdominal pain associated with bloody diarrhea CT scan of the abdomen and pelvis showed;;1. Findings are consistent with a mild nonspecific colitis involving predominantly the left colon. This is likely on an infectious or inflammatory basis in this age group. 2. There is trace thrombus within a peripheral intrahepatic branch of the right portal vein. This is new from 2008 and of indeterminant significance. 3. There are 2 low attenuation hepatic lesions which measure up to 1.6 cm. These are pathologically indeterminant, but were not seen on the 09/15/2008 examination. 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 Noted to have inflammatory/infective colitis and questionable hepatic lesion with partial hepatic vein thrombosis. 08/09 Patient was seen and examined in medical telemetry unit She complains of lower abdominal pain with ongoing bloody diarrhea Denies any fever, chills Denies any chest pain and/or shortness of breath Has history of colon cancer and family at an earlier age Physical Exam 2 Vital Signs (Past 24 Hours): Last Vital Signs Temp 36.9 C 08/09/18 13:13 Pulse 98 H 08/09/18 15:02 Resp 17 08/09/18 13:13 BP 108/70 08/09/18 13:13 Pulse Ox 97 08/09/18 13:13 Physical Exam: Lying in bed with acute distress secondary to lower abdominal pain Constitutional: WD/WN, vitals as above Eyes: PERRL, conjunctivae normal, anicteric sclerae ENMT: external ear and nose normal, oropharynx normal Neck: trachea midline, no thyromegaly Respiratory: normal respiratory effort Auscultation: lungs clear to auscultation bilaterally Cardiovascular: Rate/Rhythm: regular rate and regular rhythm Heart Sounds: normal S1 and normal S2 Gastrointestinal (Abdomen): Inspection/Auscultation: abdomen normal to inspection, + abdomen distended (Minimal distention) and normal bowel sounds Percussion/Palpation: + abdomen tender (Lower quadrants, no rebound and no rigidity) and abdomen soft Neurologic: Alert, awake and oriented x3 Results & Data Laboratory Results Short CBC 08/09/18 08/09/18 08/09/18 Range/Units 02:23 07:17 12:58 WBC 15.24 H 9.86 (4.8-10.8) K/uL Hgb 14.7 13.6 13.2 (12.0-16.0) g/dL Hct 42.7 40.2 39.6 (37-47) % Plt Count 296 246 (130-400) K/uL [facility] 08/09/18 08/09/18 02:23 07:17 Sodium 137 137 Potassium 3.9 4.1 Chloride 107 106 Carbon Dioxide 26 26 BUN 15 11 Creatinine 0.96 0.80 Glucose 107 H 98 Calcium 8.1 L 8.2 L Liver Function 08/09/18 Range/Units 02:23 Total Bilirubin 0.3 (0.2-1) mg/dl AST 15 (15-37) U/L ALT 25 (12-78) U/L Alkaline Phosphatase 172 H (45-117) U/L Albumin 3.7 (3.4-5.0) gm/dl Medications Administered Current Inpatient Medications Acetaminophen (Tylenol) 650 mg PO Q4H PRN PRN Reason: Pain or Fever Stop: 09/08/18 07:04 Albuterol (Ventolin Hfa) 2 puffs INH Q4H PRN PRN Reason: Shortness Of Breath Or Wheezin Amantadine HCl (Symmetrel) 100 mg PO BID [facility] Stop: 09/08/18 08:59 Last Admin: 08/09/18 08:04 Dose: 100 mg Carbamazepine (Tegretol) 150 mg PO BID [facility]; Protocol Stop: 09/08/18 08:59 Last Admin: 08/09/18 09:25 Dose: 150 mg Carbamazepine (Tegretol Xr) 600 mg PO BID [facility] Stop: 09/08/18 08:59 Last Admin: 08/09/18 09:25 Dose: 600 mg Dicyclomine HCl (Bentyl) 10 mg PO BID PRN PRN Reason: cramping Stop: 09/08/18 10:10 Gabapentin (Neurontin) 300 mg PO TID [facility] Stop: 09/08/18 08:59 Last Admin: 08/09/18 14:25 Dose: 300 mg Gadoxetate Disodium (Eovist) 10 ml IV ONCE PRN PRN Reason: Interaction Checking Stop: 08/13/18 16:31 Last Admin: 08/09/18 16:34 Dose: 10 ml Hydromorphone HCl (Dilaudid) 0.5 mg IV Q3H PRN PRN Reason: Pain Stop: 08/23/18 07:04 Last Admin: 08/09/18 14:25 Dose: 0.5 mg Sodium Chloride (Nss 1000ml) 1,000 mls @ 100 mls/hr IV .Q10H [facility] Stop: 09/08/18 07:04 Last Admin: 08/09/18 07:42 Dose: 100 mls/hr Pantoprazole Sodium 40 mg/ (Syringe) 10 mls @ 5 mls/min IV BID [facility] Stop: 09/08/18 08:59 Last Admin: 08/09/18 08:05 Dose: 5 mls/min Ciprofloxacin (Cipro) 400 mg in 200 mls @ 100 mls/hr IV Q12 [facility]; Protocol Stop: 08/19/18 13:59 Last Admin: 08/09/18 14:32 Dose: 100 mls/hr Metronidazole (Flagyl) 500 mg in 100 mls @ 100 mls/hr IV Q8 [facility]; Protocol Stop: 08/19/18 13:59 Last Infusion: 08/09/18 15:34 Dose: Infused Lorazepam (Ativan) 1 mg PO TID [facility] Stop: 09/08/18 08:59 Last Admin: 08/09/18 14:29 Dose: 1 mg Nitroglycerin (Nitrostat) 0.4 mg SL UD PRN PRN Reason: Chest Pain Stop: 09/08/18 07:04 Ondansetron HCl (Zofran) 4 mg IV Q6H PRN PRN Reason: Nausea Stop: 09/08/18 07:04 Phenytoin Sodium (Dilantin Er) 200 mg PO DAILYBB [facility] Stop: 09/08/18 07:14 Last Admin: 08/09/18 07:53 Dose: 200 mg Phenytoin Sodium (Dilantin Er) 300 mg PO PM [facility] Stop: 09/08/18 20:59 Venlafaxine HCl ([facility]ffexor Extended Release) [facility] [place] Stop: 09/08/18 08:59 Last Admin: 08/09/18 08:04 Dose: 150 mg
[2018-08-09] MEDS ORDERED: ENOXAPARIN INJ 40 MG/0.4 ML SYR SQ SCH (18:15)
[2018-08-09 19:40] LABS: Hematocrit (blood only) 40.5 % (37-47); Hemoglobin 13.4 g/dL (12.0-16.0); Mean Corpuscular Volume 91.8 fL (80-100); Platelet Count 253 K/uL (130-400); RDW Coefficient of Variation 13.3 % (11.5-14.5); RDW Standard Deviation 45.1 fL (36.4-46.3); Red Blood Count 4.41 M/uL (4.2-5.4); White Blood Count 7.08 K/uL (4.8-10.8)
[2018-08-09 19:49] LABS: Mean Corpuscular Hgb Conc 33.1 g/dL (32-36)
--- NOTE | 2018-08-09 20:52 | Magnetic Resonance Report ---
MR abdomen wo/w con CLINICAL HISTORY: 28 years-old Female presenting with eval liver lesions ; ? R portal vein thrombus, bloody stool, severe abdominal pain. TECHNIQUE: Multisequence, multiplanar MR imaging of the abdomen was performed before and after the ad ministration of intravenous contrast. IV contrast: 10 mL of Eovist. COMPARISON: CT from 08/09/2018. FINDINGS: Localizer images: Unremarkable. Lung bases: Lung base clear. Normal heart size. No pericardial or pleural effusion. Liver: Normal morphology. Geographic heterogeneity on in and opposed phase imaging suggests geographi c steatosis. There is also geographic perfusional variation in segment 8 consistent with a transient hepatic intensity difference (THID). Thrombosis of portal venous branches in segment 8. Few hepatic l esions characterized below: 1. Irregular lesion centrally in segment 6/7 at a site of vascular branching measures less than 1 cm and has a multilobular configuration. This demonstrates partial fill-in of contrast on portal venous phase and does not retain hepatobiliary specific contrast. This may represent a hemangioma. 2. Nonenhancing T2 hyperintense lesion in segment 5/6 consistent with hepatic cyst. 3. An apparent lesion in segment IVb on the gallbladder fossa is likely artifactual as this is not e vident on all sequences. Biliary: No intrahepatic or extra biliary ductal dilatation. Normal gallbladder. Pancreas: Normal. Spleen: Normal. Adrenal glands: Normal. Kidneys and ureters: Normal. No hydronephrosis. Bowel: Wall thickening of the descending colon with trace surrounding fat stranding (series 4 image 1 3). Peritoneal cavity: No free fluid. Lymph nodes: No enlarged lymph nodes in the abdomen. Vasculature: Aorta and IVC patent and normal in caliber. Abdominal wall: Normal. Musculoskeletal: Normal. IMPRESSION: 1. Segmental thrombosis of portal vein branches in segment 8 with resultant transient hepatic intens ity difference. This is of uncertain etiology. Follow-up liver MR with Gadavist in 3-6 months recomme nded. Correlate for underlying hypercoagulable state. 2. Benign-appearing liver lesions. 3. Inflammatory changes of the descending colon suggest colitis. Inflammatory bowel disease not excl uded. Electronically signed by: Donta Cabral M.D. 08/09/2018 8:51 PM
[2018-08-10] MEDS: HYDROmorphone INJ 0.5 MG/0.5 ML SYR IV PRN ×8 (00:57→23:19)
[2018-08-10] MEDS: SODIUM CHLORIDE 0.9% 1000ML 1,000 ML IV SCH ×3 (04:16→21:53)
[2018-08-10] MEDS: ONDANSETRON INJ 2 MG/ML 2 ML VIAL IV PRN ×3 (04:17→19:15)
[2018-08-10] MEDS: metroNIDAZOLE 500 MG/100 ML BAG IV SCH ×3 (05:48→21:51)
[2018-08-10] MEDS: PHENYTOIN SODIUM ER 100 MG CAP PO SCH ×2 (05:49→20:26)
[2018-08-10] MEDS: LORazepam 1 MG TAB PO SCH ×3 (08:15→20:22)
[2018-08-10] MEDS: GABAPENTIN 300 MG CAP PO SCH ×3 (08:15→21:51)
[2018-08-10] MEDS: VENLAFAXINE HCL XR 150 MG CAPXR PO SCH (08:15)
[2018-08-10] MEDS: CARBAMAZEPINE 100 MG CHEW TAB PO SCH ×2 (08:15→20:27)
[2018-08-10] MEDS: CIPROFLOXACIN 400 MG/200 ML BAG IV SCH ×2 (08:16→20:23)
[2018-08-10] MEDS: PANTOprazole 40 MG in SYRINGE 0 ML IV SCH ×2 (08:16→20:28)
[2018-08-10] MEDS: CARBAMAZEPINE 200 MG TABCR PO SCH ×2 (08:16→20:29)
[2018-08-10] MEDS: AMANTADINE HCL 100 MG CAPSULE PO SCH ×2 (08:17→20:28)
--- NOTE | 2018-08-10 08:52 | Gastroenterology Progress Note ---
Date of Service August 10, 2018 Supervising Physician Co-Signing Physician Notes GI consulted on Sunday on this patient for colitis - appears infectious. On treatment with cipro/flagyl. Now with new ih blood clot - assessed by hematology. Agree with medical mgmt for colitis at this time with antibiotics - this will take time to kick in for her to get symptomatic relief. Outpatient colonoscopy in 4 weeks time. Prn liquid diet as tolerated. Subjective Complaining of slight nausea this morning mild abdominal pain - unchanged from before Otherwise no other complaints Physical Exam 2 Vital Signs (Past 24 Hours): Last Vital Signs Temp 36.3 C L 08/10/18 08:00 Pulse 87 08/10/18 08:00 Resp 18 08/10/18 08:00 BP 116/77 08/10/18 08:00 Pulse Ox 97 08/10/18 08:00 Physical Exam: Well nourished white fm in nad Eyes: PERRL, conjunctivae normal, anicteric sclerae Cardiovascular: RRR, no murmur, no edema Gastrointestinal (Abdomen): normal bowel sounds, soft, nontender, no hepatosplenomegaly Results & Data Laboratory Results No new labs MRI pending
[2018-08-10 08:57] LABS: Eosinophils # (auto) 0.06 K/uL (0-0.5); Eosinophils % (auto) 0.9 %; Hematocrit (blood only) 37.6 % (37-47); Hemoglobin 12.5 g/dL (12.0-16.0); Immature Granulocytes # (auto) 0.01 K/uL (0.00-0.02); Immature Granulocytes % (auto) 0.2 %; Lymphocytes % (auto) 25.2 %; Mean Corpuscular Hgb Conc 33.2 g/dL (32-36); Mean Corpuscular Volume 91.7 fL (80-100); Mean Platelet Volume 8.8 fL (7.4-10.4); Monocytes # (auto) 0.48 K/uL (0.11-0.59); Monocytes % (auto) 7.6 %; Neutrophils # (auto) 4.19 K/uL (1.4-6.5); Neutrophils % (auto) 66.1 %; Platelet Count 215 K/uL (130-400); RDW Coefficient of Variation 13.5 % (11.5-14.5); White Blood Count 6.34 K/uL (4.8-10.8)
[2018-08-10 09:39] LABS: Albumin Globulin Ratio 0.8 (0.9-2); Albumin Level 2.7 gm/dl (3.4-5.0); BUN Creatinine Ratio 5.1 (10-20); Bilirubin,Total 0.4 mg/dl (0.2-1); Calcium 7.3 mg/dl (8.5-10.1); Creatinine Clr Calc Pharmacy 152.6 ml/min; Est GFR (African American) 139.5; Est GFR (Non-African American) 120.4; Globulin 3.4 gm/dl (2.5-4.0); Magnesium 1.8 mg/dl (1.8-2.4); Potassium 3.4 mmol/L (3.5-5.1); Total Protein 6.1 gm/dl (6.4-8.2)
[2018-08-10] MEDS ORDERED: POTASSIUM CHLORIDE 20 MEQ TABCR PO ONE (10:30)
--- NOTE | 2018-08-10 16:19 | Hospitalist Progress Note ---
Date of Service August 10, 2018 Assessment & Plan (1) Colitis: Admitted with severe lower abdominal pain associated with bloody diarrhea CT scan of the abdomen and pelvis showed;;1. Findings are consistent with a mild nonspecific colitis involving predominantly the left colon. This is likely on an infectious or inflammatory basis in this age group. 2. There is trace thrombus within a peripheral intrahepatic branch of the right portal vein. This is new from 2008 and of indeterminant significance. 3. There are 2 low attenuation hepatic lesions which measure up to 1.6 cm. These are pathologically indeterminant, but were not seen on the 09/15/2008 examination. Follow-up with a nonemergent dedicated MRI of the liver is recommended for further assessment MRI of the abdomen:1. Segmental thrombosis of portal vein branches in segment 8 with resultant transient hepatic intensity difference. This is of uncertain etiology. Follow-up liver MR with Gadavist in 3-6 months recommended. Correlate for underlying hypercoagulable state. 2. Benign-appearing liver lesions. 3. Inflammatory changes of the descending colon suggest colitis. Inflammatory bowel disease not excluded. Patient is clinically not any better Started on intravenous antibiotics Appreciate GI input and recommendation Has history of colon cancer and family at early age Need to have colonoscopy down the line Still complains of abdominal pain but diarrhea is controlled No more blood per rectum noted Family history of Crohn's disease-her sister is diagnosed with (2) Blood in stool: Likely secondary to nonspecific colitis Rule out any significant low colonic relation Frequency of the stool has decreased, no more bloody diarrhea (3) Liver lesion, right lobe: Has 2 spots in the liver as in CAT scan Will get abdominal MRI to evaluate for further MRI of the abdomen:1. Segmental thrombosis of portal vein branches in segment 8 with resultant transient hepatic intensity difference. This is of uncertain etiology. Follow-up liver MR with Gadavist in 3-6 months recommended. Correlate for underlying hypercoagulable state. 2. Benign-appearing liver lesions. 3. Inflammatory changes of the descending colon suggest colitis. Inflammatory bowel disease not excluded. (4) Hepatic vein thrombosis: Has partial hepatic vein thrombosis Abdominal MRI has been ordered to evaluate further Oncology consult has been requested Hypercoagulable tests have been sent Started on Lovenox and Coumadin Discussed with the patient the side effect of anticoagulation in detail (5) Seizure disorder: Continue current medication No seizure since admission (6) Depression: Continue current medication GI prophylaxis Intravenous Protonix DVT prophylaxis SCDs CODE STATUS Full Subjective She is a 28-year-old female with significant past medical history of seizure disorder, anxiety and depression was admitted with severe lower abdominal pain associated with bloody diarrhea. Noted to have inflammatory/infective colitis and questionable hepatic lesion with partial hepatic vein thrombosis. 08/09 Patient was seen and examined in medical telemetry unit She complains of lower abdominal pain with ongoing bloody diarrhea Denies any fever, chills Denies any chest pain and/or shortness of breath Has history of colon cancer and family at an earlier age 2/23 The patient was seen and examined in medical floor in presence of the She has been complaining of abdominal pain but bloody diarrhea has stopped Denies any other symptoms Physical Exam 2 Vital Signs (Past 24 Hours): Last Vital Signs Temp 36.8 C 08/10/18 15:33 Pulse 96 H 08/10/18 15:33 Resp 16 08/10/18 15:33 BP 103/59 L 08/10/18 15:33 Pulse Ox 100 08/10/18 15:33 Physical Exam: Minimal distress at rest Constitutional: WD/WN, vitals as above Eyes: PERRL, conjunctivae normal, anicteric sclerae ENMT: external ear and nose normal, oropharynx normal Neck: trachea midline, no thyromegaly Respiratory: normal respiratory effort Auscultation: lungs clear to auscultation bilaterally Cardiovascular: Rate/Rhythm: regular rate and regular rhythm Heart Sounds: normal S1 and normal S2 Gastrointestinal (Abdomen): Inspection/Auscultation: abdomen normal to inspection, + abdomen distended (Minimal distention) and normal bowel sounds Percussion/Palpation: + abdomen tender (Lower quadrants, no rebound and no rigidity) and abdomen soft Musculoskeletal: No acute arthritis involving any of the joints Skin: No rash Psychiatric: A+Ox3, euthymic affect Results & Data Laboratory Results Short CBC 08/09/18 08/10/18 Range/Units 18:07 08:46 WBC 7.08 6.34 (4.8-10.8) K/uL Hgb 13.4 12.5 (12.0-16.0) g/dL Hct 40.5 37.6 (37-47) % Plt Count 253 215 (130-400) K/uL BMP 08/10/18 08:34 Sodium 139 Potassium 3.4 L D Chloride 109 H Carbon Dioxide 27 BUN 3 L D Creatinine 0.63 Glucose 102 H Calcium 7.3 L Liver Function 08/10/18 Range/Units 08:34 Total Bilirubin 0.4 (0.2-1) mg/dl AST 13 L (15-37) U/L ALT 20 (12-78) U/L Alkaline Phosphatase 146 H (45-117) U/L Albumin 2.7 L (3.4-5.0) gm/dl Medications Administered Current Inpatient Medications Acetaminophen (Tylenol) 650 mg PO Q4H PRN PRN Reason: Pain or Fever Stop: 09/08/18 07:04 Albuterol (Ventolin Hfa) 2 puffs INH Q4H PRN PRN Reason: Shortness Of Breath Or Wheezin Amantadine HCl (Symmetrel) 100 mg PO BID [facility] Stop: 09/08/18 08:59 Last Admin: 08/10/18 08:17 Dose: 100 mg Carbamazepine (Tegretol) 150 mg PO BID [facility]; Protocol Stop: 09/08/18 08:59 Last Admin: 08/10/18 08:15 Dose: 150 mg Carbamazepine (Tegretol Xr) 600 mg PO BID [facility] Stop: 09/08/18 08:59 Last Admin: 08/10/18 08:16 Dose: 600 mg Dicyclomine HCl (Bentyl) 10 mg PO BID PRN PRN Reason: cramping Stop: 09/08/18 10:10 Enoxaparin Sodium (Lovenox) 100 mg SQ Q12H [facility] Stop: 09/09/18 16:14 Gabapentin (Neurontin) 300 mg PO TID [facility] Stop: 09/08/18 08:59 Last Admin: 08/10/18 13:17 Dose: 300 mg Gadoxetate Disodium (Eovist) 10 ml IV ONCE PRN PRN Reason: Interaction Checking Stop: 08/13/18 16:31 Last Admin: 08/09/18 16:34 Dose: 10 ml Hydromorphone HCl (Dilaudid) 0.5 mg IV Q3H PRN PRN Reason: Pain Stop: 08/23/18 07:04 Last Admin: 08/10/18 13:16 Dose: 0.5 mg Sodium Chloride (Nss 1000ml) 1,000 mls @ 100 mls/hr IV .Q10H [facility] Stop: 09/08/18 07:04 Last Admin: 08/10/18 13:17 Dose: 100 mls/hr Pantoprazole Sodium 40 mg/ (Syringe) 10 mls @ 5 mls/min IV BID [facility] Stop: 09/08/18 08:59 Last Admin: 08/10/18 08:16 Dose: 5 mls/min Ciprofloxacin (Cipro) 400 mg in 200 mls @ 100 mls/hr IV Q12 [facility]; Protocol Stop: 08/19/18 13:59 Last Infusion: 08/10/18 10:22 Dose: Infused Metronidazole (Flagyl) 500 mg in 100 mls @ 100 mls/hr IV Q8 [facility]; Protocol Stop: 08/19/18 13:59 Last Infusion: 08/10/18 14:32 Dose: Infused Lorazepam (Ativan) 1 mg PO TID [facility] Stop: 09/08/18 08:59 Last Admin: 08/10/18 13:24 Dose: 1 mg Nitroglycerin (Nitrostat) 0.4 mg SL UD PRN PRN Reason: Chest Pain Stop: 09/08/18 07:04 Ondansetron HCl (Zofran) 4 mg IV Q6H PRN PRN Reason: Nausea Stop: 09/08/18 07:04 Last Admin: 08/10/18 10:17 Dose: 4 mg Phenytoin Sodium (Dilantin Er) 200 mg PO DAILYBB [facility] Stop: 09/08/18 07:14 Last Admin: 08/10/18 05:49 Dose: 200 mg Phenytoin Sodium (Dilantin Er) 300 mg PO PM [facility] Stop: 09/08/18 20:59 Last Admin: 08/09/18 20:50 Dose: 300 mg Venlafaxine HCl (Effexor Extended Release) 150 mg PO QAM [facility] Stop: 09/08/18 08:59 Last Admin: 08/10/18 08:15 Dose: 150 mg Warfarin Sodium (Coumadin) 5 mg PO DAILY@1600 [facility] Stop: 09/09/18 16:29
[2018-08-10] MEDS: WARFARIN SOD 5 MG TAB PO SCH (17:03)
[2018-08-10] MEDS: ENOXAPARIN 100 MG/1ML SYR SQ SCH (17:03)
[2018-08-10] MEDS: ZOLPIDEM TARTRATE 5 MG TAB PO PRN (23:19)
[2018-08-11] MEDS: ENOXAPARIN 100 MG/1ML SYR SQ SCH ×2 (04:50→17:11)
[2018-08-11] MEDS: metroNIDAZOLE 500 MG/100 ML BAG IV SCH ×3 (05:15→21:53)
[2018-08-11] MEDS: HYDROmorphone INJ 0.5 MG/0.5 ML SYR IV PRN ×6 (05:15→21:43)
[2018-08-11] MEDS: PHENYTOIN SODIUM ER 100 MG CAP PO SCH ×2 (05:23→21:50)
[2018-08-11] MEDS: LORazepam 1 MG TAB PO SCH ×3 (08:17→21:43)
[2018-08-11] MEDS: PANTOprazole 40 MG in SYRINGE 0 ML IV SCH ×2 (08:17→21:45)
[2018-08-11] MEDS: CARBAMAZEPINE 100 MG CHEW TAB PO SCH ×2 (08:18→21:52)
[2018-08-11] MEDS: VENLAFAXINE HCL XR 150 MG CAPXR PO SCH (08:18)
[2018-08-11] MEDS: CARBAMAZEPINE 200 MG TABCR PO SCH ×2 (08:19→21:50)
[2018-08-11] MEDS: AMANTADINE HCL 100 MG CAPSULE PO SCH ×2 (08:19→21:51)
[2018-08-11] MEDS: CIPROFLOXACIN 400 MG/200 ML BAG IV SCH ×2 (08:20→21:43)
[2018-08-11] MEDS: GABAPENTIN 300 MG CAP PO SCH ×3 (08:20→21:48)
[2018-08-11] MEDS: ONDANSETRON INJ 2 MG/ML 2 ML VIAL IV PRN ×2 (08:22→22:08)
[2018-08-11] MEDS: SODIUM CHLORIDE 0.9% 1000ML 1,000 ML IV SCH ×2 (08:40→17:13)
[2018-08-11 08:44] LABS: INR 1.2 (0.9-1.1); Prothrombin Time 12.1 Seconds (9.0-12.0)
--- NOTE | 2018-08-11 09:21 | Gastroenterology Progress Note ---
Date of Service August 11, 2018 Supervising Physician Co-Signing Physician Notes Colitis- complete abx, outpatient c-scope in 4-6 weeks. Hepatic thrombus- heme/onc input. Subjective No acute events Physical Exam 2 Vital Signs (Past 24 Hours): Last Vital Signs Temp 37.0 C 08/11/18 08:00 Pulse 87 08/11/18 08:00 Resp 18 08/11/18 08:00 BP 113/74 08/11/18 08:00 Pulse Ox 97 08/11/18 08:00 Physical Exam: NAD Constitutional: well developed Respiratory: normal respiratory effort, lungs clear to auscultation Gastrointestinal (Abdomen): normal bowel sounds, soft, nontender, no hepatosplenomegaly Results & Data Laboratory Results Reviewed
[2018-08-11 10:27] LABS: Basophils # (auto) 0.01 K/uL (0-0.2); Basophils % (auto) 0.2 %; Eosinophils # (auto) 0.03 K/uL (0-0.5); Eosinophils % (auto) 0.5 %; Hematocrit (blood only) 38.4 % (37-47); Hemoglobin 12.8 g/dL (12.0-16.0); Immature Granulocytes # (auto) 0.01 K/uL (0.00-0.02); Immature Granulocytes % (auto) 0.2 %; Lymphocytes # (auto) 1.58 K/uL (1.2-3.4); Mean Corpuscular Hgb Conc 33.3 g/dL (32-36); Mean Corpuscular Volume 91.9 fL (80-100); Monocytes % (auto) 8.5 %; Neutrophils # (auto) 3.73 K/uL (1.4-6.5); Neutrophils % (auto) 63.6 %; Platelet Count 240 K/uL (130-400); RDW Coefficient of Variation 13.2 % (11.5-14.5); RDW Standard Deviation 43.8 fL (36.4-46.3); Red Blood Count 4.18 M/uL (4.2-5.4); White Blood Count 5.86 K/uL (4.8-10.8)
[2018-08-11 11:19] LABS: BUN Creatinine Ratio 3.4 (10-20); Calcium 7.6 mg/dl (8.5-10.1); Creatinine Clr Calc Pharmacy 143.5 ml/min; Est GFR (African American) 136.7; Magnesium 1.8 mg/dl (1.8-2.4); Potassium 3.6 mmol/L (3.5-5.1)
[2018-08-11 11:20] LABS: Phosphorus 2.2 mg/dl (2.5-4.9)
[2018-08-11] MEDS ORDERED: DOCUSATE SODIUM 100 MG CAP PO PRN (13:26)
--- NOTE | 2018-08-11 13:47 | Hospitalist Progress Note ---
Date of Service August 11, 2018 Assessment & Plan (1) Colitis: Admitted with severe lower abdominal pain associated with bloody diarrhea CT scan of the abdomen and pelvis showed;;1. Findings are consistent with a mild nonspecific colitis involving predominantly the left colon. This is likely on an infectious or inflammatory basis in this age group. 2. There is trace thrombus within a peripheral intrahepatic branch of the right portal vein. This is new from 2008 and of indeterminant significance. 3. There are 2 low attenuation hepatic lesions which measure up to 1.6 cm. These are pathologically indeterminant, but were not seen on the 09/15/2008 examination. Follow-up with a nonemergent dedicated MRI of the liver is recommended for further assessment MRI of the abdomen:1. Segmental thrombosis of portal vein branches in segment 8 with resultant transient hepatic intensity difference. This is of uncertain etiology. Follow-up liver MR with Gadavist in 3-6 months recommended. Correlate for underlying hypercoagulable state. 2. Benign-appearing liver lesions. 3. Inflammatory changes of the descending colon suggest colitis. Inflammatory bowel disease not excluded. Patient is clinically not any better Started on intravenous antibiotics Appreciate GI input and recommendation Has history of colon cancer and family at early age Need to have colonoscopy down the line Still complains of abdominal pain but diarrhea is controlled No more blood per rectum noted Family history of Crohn's disease-her sister is diagnosed with Crohn's disease Clinically a little bit better today Bowel has not moved-we will give Colace (2) Blood in stool: Likely secondary to nonspecific colitis Rule out any significant low colonic relation Frequency of the stool has decreased, no more bloody diarrhea No more bowel movement and/or bloody diarrhea (3) Liver lesion, right lobe: Has 2 spots in the liver as in CAT scan Will get abdominal MRI to evaluate for further MRI of the abdomen:1. Segmental thrombosis of portal vein branches in segment 8 with resultant transient hepatic intensity difference. This is of uncertain etiology. Follow-up liver MR with Gadavist in 3-6 months recommended. Correlate for underlying hypercoagulable state. 2. Benign-appearing liver lesions. 3. Inflammatory changes of the descending colon suggest colitis. Inflammatory bowel disease not excluded. Advised to do follow-up as an outpatient (4) Hepatic vein thrombosis: Has partial hepatic vein thrombosis Abdominal MRI has been ordered to evaluate further Oncology consult has been requested Hypercoagulable tests have been sent Started on Lovenox and Coumadin Discussed with the patient the side effect of anticoagulation in detail Hypercoagulable workup is pending Has been on Lovenox and Coumadin (5) Seizure disorder: Continue current medication No seizure since admission (6) Depression: Continue current medication GI prophylaxis Intravenous Protonix DVT prophylaxis SCDs CODE STATUS Full Subjective She is a 28-year-old female with significant past medical history of seizure disorder, anxiety and depression was admitted with severe lower abdominal pain associated with bloody diarrhea. Noted to have inflammatory/infective colitis and questionable hepatic lesion with partial hepatic vein thrombosis. 08/09 Patient was seen and examined in medical telemetry unit She complains of lower abdominal pain with ongoing bloody diarrhea Denies any fever, chills Denies any chest pain and/or shortness of breath Has history of colon cancer and family at an earlier age 2/23 The patient was seen and examined in medical floor in presence of the She has been complaining of abdominal pain but bloody diarrhea has stopped Denies any other symptoms 08/11 The patient was seen and examined in medical floor Her abdominal pain is is a bit better today She has not moved her bowels She denies any other symptoms Physical Exam 2 Vital Signs (Past 24 Hours): Last Vital Signs Temp 36.8 C 08/11/18 11:00 Pulse 73 08/11/18 11:00 Resp 18 08/11/18 11:00 BP 105/69 08/11/18 11:00 Pulse Ox 98 08/11/18 11:00 Physical Exam: No apparent distress at rest Constitutional: WD/WN, vitals as above Eyes: PERRL, conjunctivae normal, anicteric sclerae ENMT: external ear and nose normal, oropharynx normal Neck: trachea midline, no thyromegaly Respiratory: normal respiratory effort Auscultation: lungs clear to auscultation bilaterally Cardiovascular: Rate/Rhythm: regular rate and regular rhythm Heart Sounds: normal S1 and normal S2 Gastrointestinal (Abdomen): Inspection/Auscultation: abdomen normal to inspection, + abdomen distended (Minimal distention) and normal bowel sounds Percussion/Palpation: + abdomen tender (Lower quadrants, no rebound and no rigidity) and abdomen soft Neurologic: PERRL, EOMI, accommodation nl, no face palsy, no dysarthria Psychiatric: A+Ox3, euthymic affect Results & Data Laboratory Results Short CBC 08/11/18 Range/Units 08:08 WBC 5.86 (4.8-10.8) K/uL Hgb 12.8 (12.0-16.0) g/dL Hct 38.4 (37-47) % Plt Count 240 (130-400) K/uL BMP 08/11/18 10:53 Sodium 140 Potassium 3.6 Chloride 106 Carbon Dioxide 30 BUN 2 L Creatinine 0.67 Glucose 91 Calcium 7.6 L Cardiac Enzymes 08/10/18 08/11/18 Range/Units 23:26 08:08 Troponin I < 0.015 < 0.015 (0-0.045) ng/ml Medications Administered Current Inpatient Medications Acetaminophen (Tylenol) 650 mg PO Q4H PRN PRN Reason: Pain or Fever Stop: 09/08/18 07:04 Albuterol (Ventolin Hfa) 2 puffs INH Q4H PRN PRN Reason: Shortness Of Breath Or Wheezin Amantadine HCl (Symmetrel) 100 mg PO BID [facility] Stop: 09/08/18 08:59 Last Admin: 08/11/18 08:19 Dose: 100 mg Carbamazepine (Tegretol) 150 mg PO BID [facility]; Protocol Stop: 09/08/18 08:59 Last Admin: 08/11/18 08:18 Dose: 150 mg Carbamazepine (Tegretol Xr) 600 mg PO BID [facility] Stop: 09/08/18 08:59 Last Admin: 08/11/18 08:19 Dose: 600 mg Dicyclomine HCl (Bentyl) 10 mg PO BID PRN PRN Reason: cramping Stop: 09/08/18 10:10 Docusate Sodium (Colace) 100 mg PO BID PRN PRN Reason: Constipation Stop: 09/10/18 20:59 Enoxaparin Sodium (Lovenox) 100 mg SQ Q12H [facility] Stop: 09/09/18 16:14 Last Admin: 08/11/18 04:50 Dose: 100 mg Gabapentin (Neurontin) 300 mg PO TID [facility] Stop: 09/08/18 08:59 Last Admin: 08/11/18 08:20 Dose: 300 mg Gadoxetate Disodium (Eovist) 10 ml IV ONCE PRN PRN Reason: Interaction Checking Stop: 08/13/18 16:31 Last Admin: 08/09/18 16:34 Dose: 10 ml Hydromorphone HCl (Dilaudid) 0.5 mg IV Q3H PRN PRN Reason: Pain Stop: 08/23/18 07:04 Last Admin: 08/11/18 11:31 Dose: 0.5 mg Sodium Chloride (Nss 1000ml) 1,000 mls @ 100 mls/hr IV .Q10H [facility] Stop: 09/08/18 07:04 Last Admin: 08/11/18 08:40 Dose: 100 mls/hr Pantoprazole Sodium 40 mg/ (Syringe) 10 mls @ 5 mls/min IV BID [facility] Stop: 09/08/18 08:59 Last Admin: 08/11/18 08:17 Dose: 5 mls/min Ciprofloxacin (Cipro) 400 mg in 200 mls @ 100 mls/hr IV Q12 [facility]; Protocol Stop: 08/19/18 13:59 Last Infusion: 08/11/18 10:21 Dose: Infused Metronidazole (Flagyl) 500 mg in 100 mls @ 100 mls/hr IV Q8 [facility]; Protocol Stop: 08/19/18 13:59 Last Infusion: 08/11/18 07:16 Dose: Infused Lorazepam (Ativan) 1 mg PO TID [facility] Stop: 09/08/18 08:59 Last Admin: 08/11/18 08:17 Dose: 1 mg Nitroglycerin (Nitrostat) 0.4 mg SL UD PRN PRN Reason: Chest Pain Stop: 09/08/18 07:04 Ondansetron HCl (Zofran) 4 mg IV Q6H PRN PRN Reason: Nausea Stop: 09/08/18 07:04 Last Admin: 08/11/18 08:22 Dose: 4 mg Phenytoin Sodium (Dilantin Er) 200 mg PO DAILYBB [facility] Stop: 09/08/18 07:14 Last Admin: 08/11/18 05:23 Dose: 200 mg Phenytoin Sodium (Dilantin Er) 300 mg PO PM [facility] Stop: 09/08/18 20:59 Last Admin: 08/10/18 20:26 Dose: 300 mg Venlafaxine HCl (Effexor Extended Release) 150 mg PO QAM [facility] Stop: 09/08/18 08:59 Last Admin: 08/11/18 08:18 Dose: 150 mg Warfarin Sodium (Coumadin) 5 mg PO DAILY@1600 [facility] Stop: 09/09/18 16:29 Last Admin: 08/10/18 17:03 Dose: 5 mg Zolpidem Tartrate (Ambien) 5 mg PO HS PRN PRN Reason: Sleep Stop: 09/09/18 23:04 Last Admin: 08/10/18 23:19 Dose: 5 mg
[2018-08-11] MEDS: WARFARIN SOD 5 MG TAB PO SCH (17:12)
[2018-08-11] MEDS: ZOLPIDEM TARTRATE 5 MG TAB PO PRN (22:08)
[2018-08-11] MEDS ORDERED: LORazepam 1 MG TAB PO STA (23:29)
[2018-08-12] MEDS: SODIUM CHLORIDE 0.9% 1000ML 1,000 ML IV SCH ×2 (04:58→16:21)
[2018-08-12] MEDS: ENOXAPARIN 100 MG/1ML SYR SQ SCH (04:58)
[2018-08-12] MEDS: metroNIDAZOLE 500 MG/100 ML BAG IV SCH ×2 (05:00→13:33)
[2018-08-12] MEDS: ONDANSETRON INJ 2 MG/ML 2 ML VIAL IV PRN ×2 (05:20→16:25)
[2018-08-12] MEDS: HYDROmorphone INJ 0.5 MG/0.5 ML SYR IV PRN ×4 (05:20→15:29)
[2018-08-12] MEDS: PHENYTOIN SODIUM ER 100 MG CAP PO SCH ×2 (05:23→20:18)
[2018-08-12 07:09] LABS: Basophils # (auto) 0.01 K/uL (0-0.2); Basophils % (auto) 0.2 %; Eosinophils # (auto) 0.02 K/uL (0-0.5); Eosinophils % (auto) 0.3 %; Hematocrit (blood only) 37.1 % (37-47); Hemoglobin 12.4 g/dL (12.0-16.0); Immature Granulocytes # (auto) 0.01 K/uL (0.00-0.02); Immature Granulocytes % (auto) 0.2 %; Lymphocytes # (auto) 1.41 K/uL (1.2-3.4); Lymphocytes % (auto) 23.8 %; Mean Corpuscular Hgb Conc 33.4 g/dL (32-36); Mean Platelet Volume 8.8 fL (7.4-10.4); Monocytes # (auto) 0.53 K/uL (0.11-0.59); Neutrophils # (auto) 3.94 K/uL (1.4-6.5); Neutrophils % (auto) 66.5 %; Platelet Count 227 K/uL (130-400); RDW Coefficient of Variation 12.9 % (11.5-14.5); RDW Standard Deviation 42.3 fL (36.4-46.3); Red Blood Count 4.12 M/uL (4.2-5.4); White Blood Count 5.92 K/uL (4.8-10.8)
[2018-08-12 07:20] LABS: INR 2.2 (0.9-1.1); Prothrombin Time 21.6 Seconds (9.0-12.0)
[2018-08-12] MEDS: GABAPENTIN 300 MG CAP PO SCH ×3 (08:20→20:19)
[2018-08-12] MEDS: LORazepam 1 MG TAB PO SCH ×3 (08:20→20:17)
[2018-08-12] MEDS: VENLAFAXINE HCL XR 150 MG CAPXR PO SCH (08:21)
[2018-08-12] MEDS: CARBAMAZEPINE 200 MG TABCR PO SCH ×2 (08:21→20:21)
[2018-08-12] MEDS: AMANTADINE HCL 100 MG CAPSULE PO SCH ×2 (08:21→20:20)
[2018-08-12] MEDS: PANTOprazole 40 MG in SYRINGE 0 ML IV SCH (08:26)
[2018-08-12] MEDS: CIPROFLOXACIN 400 MG/200 ML BAG IV SCH (08:26)
[2018-08-12] MEDS: CARBAMAZEPINE 100 MG CHEW TAB PO SCH ×2 (08:26→20:20)
--- NOTE | 2018-08-12 09:04 | Gastroenterology Progress Note ---
Date of Service August 12, 2018 Assessment & Plan (1) Blood in stool: (2) Hepatic vein thrombosis: No evidence of liver disease on imaging or labs to explain cause of hepatic vein thrombosis. Imaging with steatosis but this would not typically cause thrombus. Agree with anticoagulation. Will await results coagulopathy lab work up. (3) Liver lesion, right lobe: OP MRI in 3 months. (4) Colitis: 1. Cipro/flagyl x 10 days total. 2. Encouraged to take liquids po, small amts frequently. 3. Continue Zofran prn nausea. Present on Admission?: Yes Supervising Physician Co-Signing Physician Notes I have seen and examined the patient. Slowly healing colitis - on cipro/flagyl - complete abx course. IH thrombus- heme input. Outpatient colonoscopy in 4-6 weeks given family histor of colon cancer and post colitis follow-up. Subjective Ms. Donya Mathis is a 28 yr old female with a hx of seizure disorder and strong family hx of colon cancer (sister, age 23) who presented on 08/[address] with IV contrast with mild left sided colitis, two incidental liver lesions, largest 1.6 cm, and trace thrombus of the right hepatic vein. f/u MRI suggesting lesions are most likely hemangioma, hepatic cyst and artifact. F/u MRI 3 months recommended. WBC on arrival 15, normal since later that day. Coagulation w/o pending. Anticoagulated with Lovenox/warfarin. PT 21/INR 2.2 This morning reports that she continues with 5/10 lower abdomen pain and nausea which is improved witih nausea. Because of a vomiting episode yesterday, pt hesitant to take any po liquids. Pt unaware of color of BMs. 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 Constitutional: as per Subjective / HPI Gastrointestinal: + abdominal pain, + diarrhea/loose stools and + blood in stools; no nausea and no vomiting Physical Exam 2 Vital Signs (Past 24 Hours): Last Vital Signs Temp 36.6 C 08/12/18 08:00 Pulse 68 08/12/18 08:16 Resp 18 08/12/18 08:00 BP 115/78 08/12/18 08:00 Pulse Ox 98 08/12/18 08:00 Constitutional: WD/WN, vitals as above Eyes: PERRL, conjunctivae normal, anicteric sclerae ENMT: external ear and nose normal, oropharynx normal Neck: trachea midline, no thyromegaly Respiratory: normal respiratory effort, lungs clear to auscultation Cardiovascular: RRR, no murmur, no edema Gastrointestinal (Abdomen): Inspection/Auscultation: + hypoactive bowel sounds Percussion/Palpation: + abdomen tender (lower abdomen L>R) and abdomen soft Skin: no rashes, warm and dry Neurologic: PERRL, EOMI, accommodation nl, no face palsy, no dysarthria Psychiatric: A+Ox3, euthymic affect Cognition: recent memory grossly intact and language grossly intact Results & Data Diagnostic Findings CT abd/pelvis 08/09 with IV, no oral contrast: 1. Findings are consistent with a mild nonspecific colitis involving predominantly the left colon. This is likely on an infectious or inflammatory basis in this age group. 2. There is trace thrombus within a peripheral intrahepatic branch of the right portal vein. This is new from 2008 and of indeterminant significance. 3. There are 2 low attenuation hepatic lesions which measure up to 1.6 cm. These are pathologically indeterminant, but were not seen on the 09/15/2008 examination. Follow-up with a nonemergent dedicated MRI of the liver is recommended for further assessment. 4. Additional findings as above. MRI 08/09/18: 1. Segmental thrombosis of portal vein branches in segment 8 with resultant transient hepatic intensity difference. This is of uncertain etiology. Follow- up liver MR with Gadavist in 3-6 months recommended. Correlate for underlying hypercoagulable state. 2. Benign-appearing liver lesions. 3. Inflammatory changes of the descending colon suggest colitis. Inflammatory bowel disease not excluded.
[2018-08-12] MEDS: WARFARIN SOD 5 MG TAB PO SCH (15:29)
--- NOTE | 2018-08-12 16:23 | Hematology/Oncology Prog Note ---
Date of Service August 12, 2018 Assessment & Plan (1) Colitis: * GI recs: Remain on Cipro/Flagyl IV antibx, colonoscopy in 4 weeks * No anemia on CBCD despite GI bleeding * + FH of IBD- sister with Crohn's, but patient still insistent today that this same sister also had colon CA * Patient on liquid clears (2) Hepatic vein thrombosis: * Patient will need hypercaog work up, Proteins C+S, Factor V Leiden, Prothrombin gene mutation, antithrombin 3, APS work up- ordered * This work up remains pending as of 08/12 * She is on therapeutic Lovenox 100 mg Q12H and now on warfarin 5 mg daily, today is 1st day INR was therapeutic, so if INR stays in range tomorrow, can discontinue Lovenox tomorrow * Warfarin goal 2-3 (3) Liver lesion, right lobe: * MRI abd- benign lesions seen Patient will need hospital discharge follow up. Subjective Patient was rounded on at bedside. She states her cramping is improved. She thinks they are 5-6/10 when present, were more severe. She had diarrhea episode last evening and now no BM today. No further BRB with BM. She is feeling nauseous, taking Zofran with improvement. She remains in bed, at home confined to wheelchair. No bleeding complications reported, remains on Lovenox and warfarin. She is on liquid clears still. Physical Exam Vital Signs (Past 24 Hours): Last Vital Signs Temp 36.5 C 08/12/18 15:02 Pulse 73 08/12/18 15:02 Resp 18 08/12/18 15:02 BP 126/85 08/12/18 15:02 Pulse Ox 96 08/12/18 15:02 Constitutional: well developed and well nourished; no acute distress Respiratory: normal respiratory effort; no respiratory distress Auscultation: lungs clear to auscultation bilaterally Cardiovascular: Rate/Rhythm: regular rate and regular rhythm Gastrointestinal (Abdomen): Inspection/Auscultation: normal bowel sounds Percussion/Palpation: + abdomen tender (lower abdomen, no rebound tenderness) Results & Data Laboratory Results Laboratory Results - last 72 hr 08/09/18 08/10/18 08/10/18 18:07 08:34 08:46 WBC 7.08 6.34 RBC 4.41 4.10 L Hgb 13.4 12.5 Hct 40.5 37.6 MCV 91.8 91.7 MCH 30.4 30.5 MCHC 33.1 33.2 RDW Std Deviation 45.1 45.0 RDW Coeff of Erika 13.3 13.5 Plt Count 253 215 MPV 9.0 8.8 Immature Gran % (Auto) 0.2 Neut % (Auto) 66.1 Lymph % (Auto) 25.2 [place] % (Auto) 7.6 Eos % (Auto) 0.9 Baso % (Auto) 0.0 Immature Gran # (Auto) 0.01 Neut # (Auto) 4.19 Lymph # (Auto) 1.60 [place] # (Auto) 0.48 Eos # (Auto) 0.06 Baso # (Auto) 0.00 PT INR Sodium 139 Potassium 3.4 L D Chloride 109 H Carbon Dioxide 27 Anion Gap 3.0 BUN 3 L D Creatinine 0.63 Est Cr Clr Drug Dosing 152.6 Est GFR ( Amer) 139.5 Est GFR (Non-Af Amer) 120.4 BUN/Creatinine Ratio 5.1 L Glucose 102 H Calcium 7.3 L Phosphorus Magnesium 1.8 Total Bilirubin 0.4 AST 13 L ALT 20 Alkaline Phosphatase 146 H Troponin I Total Protein 6.1 L Albumin 2.7 L Globulin 3.4 Albumin/Globulin Ratio 0.8 L 08/10/18 08/11/18 08/11/18 23:26 08:08 08:08 WBC RBC Hgb Hct MCV MCH MCHC RDW Std Deviation RDW Coeff of Erika Plt Count MPV Immature Gran % (Auto) Neut % (Auto) Lymph % (Auto) [place] % (Auto) Eos % (Auto) Baso % (Auto) Immature Gran # (Auto) Neut # (Auto) Lymph # (Auto) [place] # (Auto) Eos # (Auto) Baso # (Auto) PT 12.1 H INR 1.2 H Sodium Potassium Chloride Carbon Dioxide Anion Gap BUN Creatinine Est Cr Clr Drug Dosing Est GFR ( Amer) Est GFR (Non-Af Amer) BUN/Creatinine Ratio Glucose Calcium Phosphorus Magnesium Total Bilirubin AST ALT Alkaline Phosphatase Troponin I < 0.015 < 0.015 Total Protein Albumin Globulin Albumin/Globulin Ratio 08/11/18 08/11/18 08/12/18 08:08 10:53 06:50 WBC 5.86 RBC 4.18 L Hgb 12.8 Hct 38.4 MCV 91.9 MCH 30.6 MCHC 33.3 RDW Std Deviation 43.8 RDW Coeff of Erika 13.2 Plt Count 240 MPV 9.0 Immature Gran % (Auto) 0.2 Neut % (Auto) 63.6 Lymph % (Auto) 27.0 [place] % (Auto) 8.5 Eos % (Auto) 0.5 Baso % (Auto) 0.2 Immature Gran # (Auto) 0.01 Neut # (Auto) 3.73 Lymph # (Auto) 1.58 [place] # (Auto) 0.50 Eos # (Auto) 0.03 Baso # (Auto) 0.01 PT 21.6 H INR 2.2 H Sodium 140 Potassium 3.6 Chloride 106 Carbon Dioxide 30 Anion Gap 4.0 BUN 2 L Creatinine 0.67 Est Cr Clr Drug Dosing 143.5 Est GFR ( Amer) 136.7 Est GFR (Non-Af Amer) 118.0 BUN/Creatinine Ratio 3.4 L Glucose 91 Calcium 7.6 L Phosphorus 2.2 L Magnesium 1.8 Total Bilirubin AST ALT Alkaline Phosphatase Troponin I Total Protein Albumin Globulin Albumin/Globulin Ratio 08/12/18 06:50 WBC 5.92 RBC 4.12 L Hgb 12.4 Hct 37.1 MCV 90.0 MCH 30.1 MCHC 33.4 RDW Std Deviation 42.3 RDW Coeff of Erika 12.9 Plt Count 227 MPV 8.8 Immature Gran % (Auto) 0.2 Neut % (Auto) 66.5 Lymph % (Auto) 23.8 [place] % (Auto) 9.0 Eos % (Auto) 0.3 Baso % (Auto) 0.2 Immature Gran # (Auto) 0.01 Neut # (Auto) 3.94 Lymph # (Auto) 1.41 [place] # (Auto) 0.53 Eos # (Auto) 0.02 Baso # (Auto) 0.01 PT INR Sodium Potassium Chloride Carbon Dioxide Anion Gap BUN Creatinine Est Cr Clr Drug Dosing Est GFR ( Amer) Est GFR (Non-Af Amer) BUN/Creatinine Ratio Glucose Calcium Phosphorus Magnesium Total Bilirubin AST ALT Alkaline Phosphatase Troponin I Total Protein Albumin Globulin Albumin/Globulin Ratio Diagnostic Findings MRI abdomen from 08/09/2018: Lung bases: Lung base clear. Normal heart size. No pericardial or pleural effusion. Liver: Normal morphology. Geographic heterogeneity on in and opposed phase imaging suggests geographic steatosis. There is also geographic perfusional variation in segment 8 consistent with a transient hepatic intensity difference (THID). Thrombosis of portal venous branches in segment 8. Few hepatic lesions characterized below: 1. Irregular lesion centrally in segment 6/7 at a site of vascular branching measures less than 1 cm and has a multilobular configuration. This demonstrates partial fill-in of contrast on portal venous phase and does not retain hepatobiliary specific contrast. This may represent a hemangioma. 2. Nonenhancing T2 hyperintense lesion in segment 5/6 consistent with hepatic cyst. 3. An apparent lesion in segment IVb on the gallbladder fossa is likely artifactual as this is not evident on all sequences. Biliary: No intrahepatic or extra biliary ductal dilatation. Normal gallbladder. Pancreas: Normal. Spleen: Normal. Adrenal glands: Normal. Kidneys and ureters: Normal. No hydronephrosis. Bowel: Wall thickening of the descending colon with trace surrounding fat stranding (series 4 image 13). Peritoneal cavity: No free fluid. Lymph nodes: No enlarged lymph nodes in the abdomen. Vasculature: Aorta and IVC patent and normal in caliber. Abdominal wall: Normal. Musculoskeletal: Normal.
--- NOTE | 2018-08-12 18:48 | Hospitalist Progress Note ---
Date of Service August 12, 2018 Assessment & Plan (1) Colitis: Admitted with severe lower abdominal pain associated with bloody diarrhea CT scan of the abdomen and pelvis showed;;1. Findings are consistent with a mild nonspecific colitis involving predominantly the left colon. This is likely on an infectious or inflammatory basis in this age group. 2. There is trace thrombus within a peripheral intrahepatic branch of the right portal vein. This is new from 2008 and of indeterminant significance. 3. There are 2 low attenuation hepatic lesions which measure up to 1.6 cm. These are pathologically indeterminant, but were not seen on the 09/15/2008 examination. Follow-up with a nonemergent dedicated MRI of the liver is recommended for further assessment MRI of the abdomen:1. Segmental thrombosis of portal vein branches in segment 8 with resultant transient hepatic intensity difference. This is of uncertain etiology. Follow-up liver MR with Gadavist in 3-6 months recommended. Correlate for underlying hypercoagulable state. 2. Benign-appearing liver lesions. 3. Inflammatory changes of the descending colon suggest colitis. Inflammatory bowel disease not excluded. Patient is clinically not any better Started on intravenous antibiotics Appreciate GI input and recommendation Has history of colon cancer and family at early age Need to have colonoscopy down the line Still complains of abdominal pain but diarrhea is controlled No more blood per rectum noted Family history of Crohn's disease-her sister is diagnosed with Crohn's disease Clinically a little bit better today Bowel has not moved-we will give Colace Antibiotics have been changed to oral Plan colonoscopy as an outpatient in 4 weeks Percocet for ongoing abdominal pain (2) Blood in stool: Likely secondary to nonspecific colitis Rule out any significant low colonic relation Frequency of the stool has decreased, no more bloody diarrhea No more bowel movement and/or bloody diarrhea Hemoglobin remains stable (3) Liver lesion, right lobe: Has 2 spots in the liver as in CAT scan Will get abdominal MRI to evaluate for further MRI of the abdomen:1. Segmental thrombosis of portal vein branches in segment 8 with resultant transient hepatic intensity difference. This is of uncertain etiology. Follow-up liver MR with Gadavist in 3-6 months recommended. Correlate for underlying hypercoagulable state. 2. Benign-appearing liver lesions. 3. Inflammatory changes of the descending colon suggest colitis. Inflammatory bowel disease not excluded. Advised to do follow-up as an outpatient (4) Hepatic vein thrombosis: Has partial hepatic vein thrombosis Abdominal MRI has been ordered to evaluate further Oncology consult has been requested Hypercoagulable tests have been sent Started on Lovenox and Coumadin Discussed with the patient the side effect of anticoagulation in detail Hypercoagulable workup is pending Has been on Lovenox and Coumadin INR is therapeutic Lovenox has been stopped Monitor INR (5) Seizure disorder: Continue current medication No seizure since admission (6) Depression: Continue current medication GI prophylaxis Intravenous Protonix DVT prophylaxis SCDs CODE STATUS Full Subjective She is a 28-year-old female with significant past medical history of seizure disorder, anxiety and depression was admitted with severe lower abdominal pain associated with bloody diarrhea. Noted to have inflammatory/infective colitis and questionable hepatic lesion with partial hepatic vein thrombosis. 08/09 Patient was seen and examined in medical telemetry unit She complains of lower abdominal pain with ongoing bloody diarrhea Denies any fever, chills Denies any chest pain and/or shortness of breath Has history of colon cancer and family at an earlier age 2/23 The patient was seen and examined in medical floor in presence of the She has been complaining of abdominal pain but bloody diarrhea has stopped Denies any other symptoms 08/11 The patient was seen and examined in medical floor Her abdominal pain is is a bit better today She has not moved her bowels She denies any other symptoms 08/12 Has been feeling better Complains to have some abdominal pain Denies any other symptoms Physical Exam 2 Vital Signs (Past 24 Hours): Last Vital Signs Temp 36.5 C 08/12/18 15:02 Pulse 73 08/12/18 15:02 Resp 18 08/12/18 15:02 BP 126/85 08/12/18 15:02 Pulse Ox 96 08/12/18 15:02 Physical Exam: No apparent distress at rest Constitutional: WD/WN, vitals as above Eyes: PERRL, conjunctivae normal, anicteric sclerae ENMT: external ear and nose normal, oropharynx normal Neck: trachea midline, no thyromegaly Respiratory: normal respiratory effort Auscultation: lungs clear to auscultation bilaterally Cardiovascular: Rate/Rhythm: regular rate and regular rhythm Heart Sounds: normal S1 and normal S2 Gastrointestinal (Abdomen): Inspection/Auscultation: abdomen normal to inspection and normal bowel sounds Percussion/Palpation: + abdomen tender ( Almost resolved) and abdomen soft; no guarding and abdomen not rigid Neurologic: PERRL, EOMI, accommodation nl, no face palsy, no dysarthria Psychiatric: A+Ox3, euthymic affect Results & Data Laboratory Results Short CBC 08/12/18 Range/Units 06:50 WBC 5.92 (4.8-10.8) K/uL Hgb 12.4 (12.0-16.0) g/dL Hct 37.1 (37-47) % Plt Count 227 (130-400) K/uL Medications Administered Current Inpatient Medications Acetaminophen (Tylenol) 650 mg PO Q4H PRN PRN Reason: Pain or Fever Stop: 09/08/18 07:04 Albuterol (Ventolin Hfa) 2 puffs INH Q4H PRN PRN Reason: Shortness Of Breath Or Wheezin Amantadine HCl (Symmetrel) 100 mg PO BID [facility] Stop: 09/08/18 08:59 Last Admin: 08/12/18 08:21 Dose: 100 mg Carbamazepine (Tegretol) 150 mg PO BID [facility]; Protocol Stop: 09/08/18 08:59 Last Admin: 08/12/18 08:26 Dose: 150 mg Carbamazepine (Tegretol Xr) 600 mg PO BID [facility] Stop: 09/08/18 08:59 Last Admin: 08/12/18 08:21 Dose: 600 mg Ciprofloxacin (Cipro) 500 mg PO BID [facility] Stop: 08/22/18 20:59 Dicyclomine HCl (Bentyl) 10 mg PO BID PRN PRN Reason: cramping Stop: 09/08/18 10:10 Docusate Sodium (Colace) 100 mg PO BID PRN PRN Reason: Constipation Stop: 09/10/18 20:59 Last Admin: 08/11/18 14:35 Dose: 100 mg Gabapentin (Neurontin) 300 mg PO TID [facility] Stop: 09/08/18 08:59 Last Admin: 08/12/18 13:29 Dose: 300 mg Gadoxetate Disodium (Eovist) 10 ml IV ONCE PRN PRN Reason: Interaction Checking Stop: 08/13/18 16:31 Last Admin: 08/09/18 16:34 Dose: 10 ml Sodium Chloride (Nss 1000ml) 1,000 mls @ 100 mls/hr IV .Q10H [facility] Stop: 09/08/18 07:04 Last Admin: 08/12/18 16:21 Dose: 100 mls/hr Lorazepam (Ativan) 1 mg PO TID [facility] Stop: 09/08/18 08:59 Last Admin: 08/12/18 13:29 Dose: 1 mg Metronidazole (Flagyl) 500 mg PO BID [facility] Stop: 08/22/18 20:59 Nitroglycerin (Nitrostat) 0.4 mg SL UD PRN PRN Reason: Chest Pain Stop: 09/08/18 07:04 Ondansetron HCl (Zofran) 4 mg IV Q6H PRN PRN Reason: Nausea Stop: 09/08/18 07:04 Last Admin: 08/12/18 16:25 Dose: 4 mg Oxycodone/Acetaminophen (Percocet 5mg/325mg) 1 tab PO Q4H PRN PRN Reason: Pain Stop: 08/26/18 18:39 Pantoprazole Sodium (Protonix) 40 mg PO QAM [facility] Stop: 09/12/18 08:59 Phenytoin Sodium (Dilantin Er) 200 mg PO DAILYBB [facility] Stop: 09/08/18 07:14 Last Admin: 08/12/18 05:23 Dose: 200 mg Phenytoin Sodium (Dilantin Er) 300 mg PO PM [facility] Stop: 09/08/18 20:59 Last Admin: 08/11/18 21:50 Dose: 300 mg Venlafaxine HCl (Effexor Extended Release) 150 mg PO QAM [facility] Stop: 09/08/18 08:59 Last Admin: 08/12/18 08:21 Dose: 150 mg Warfarin Sodium (Coumadin) 5 mg PO DAILY@1600 [facility] Stop: 09/09/18 16:29 Last Admin: 08/12/18 15:29 Dose: 5 mg Zolpidem Tartrate (Ambien) 5 mg PO HS PRN PRN Reason: Sleep Stop: 09/09/18 23:04 Last Admin: 08/11/18 22:08 Dose: 5 mg
[2018-08-12] MEDS ORDERED: HYDROmorphone INJ 0.5 MG/0.5 ML SYR IV STA (18:56)
[2018-08-12] MEDS: ZOLPIDEM TARTRATE 5 MG TAB PO PRN (20:17)
[2018-08-12] MEDS: CIPROFLOXACIN 500 MG TAB PO SCH (20:18)
[2018-08-12] MEDS: metroNIDAZOLE 500 MG TAB PO SCH (20:19)
[2018-08-13] MEDS: OXYCODONE/ACETAMINOPHEN 5mg/325mg TAB PO PRN ×2 (01:52→08:58)
[2018-08-13] MEDS: SODIUM CHLORIDE 0.9% 1000ML 1,000 ML IV SCH ×3 (01:52→21:46)
[2018-08-13] MEDS: ONDANSETRON INJ 2 MG/ML 2 ML VIAL IV PRN ×2 (04:47→17:52)
[2018-08-13 05:58] LABS: Basophils # (auto) 0.01 K/uL (0-0.2); Basophils % (auto) 0.2 %; Eosinophils # (auto) 0.02 K/uL (0-0.5); Eosinophils % (auto) 0.4 %; Hematocrit (blood only) 36.3 % (37-47); Hemoglobin 12.2 g/dL (12.0-16.0); Immature Granulocytes # (auto) 0.02 K/uL (0.00-0.02); Immature Granulocytes % (auto) 0.4 %; Lymphocytes # (auto) 1.16 K/uL (1.2-3.4); Mean Corpuscular Hgb Conc 33.6 g/dL (32-36); Mean Corpuscular Volume 90.1 fL (80-100); Mean Platelet Volume 8.7 fL (7.4-10.4); Monocytes # (auto) 0.47 K/uL (0.11-0.59); Monocytes % (auto) 10.1 %; Neutrophils # (auto) 2.96 K/uL (1.4-6.5); Neutrophils % (auto) 63.9 %; Platelet Count 229 K/uL (130-400); RDW Coefficient of Variation 12.9 % (11.5-14.5); RDW Standard Deviation 42.4 fL (36.4-46.3); Red Blood Count 4.03 M/uL (4.2-5.4); White Blood Count 4.64 K/uL (4.8-10.8)
[2018-08-13] MEDS: PHENYTOIN SODIUM ER 100 MG CAP PO SCH ×2 (06:02→21:48)
[2018-08-13 06:16] LABS: INR 4.3 (0.9-1.1); Prothrombin Time 39.7 Seconds (9.0-12.0)
[2018-08-13 06:38] LABS: BUN Creatinine Ratio 5.5 (10-20); Calcium 7.6 mg/dl (8.5-10.1); Creatinine Clr Calc Pharmacy 166.3 ml/min; Est GFR (African American) 143.4; Est GFR (Non-African American) 123.7; Potassium 3.6 mmol/L (3.5-5.1)
[2018-08-13] MEDS: LORazepam 1 MG TAB PO SCH ×3 (08:51→21:46)
[2018-08-13] MEDS: GABAPENTIN 300 MG CAP PO SCH ×3 (08:52→21:48)
[2018-08-13] MEDS: metroNIDAZOLE 500 MG TAB PO SCH ×2 (08:52→21:48)
[2018-08-13] MEDS: VENLAFAXINE HCL XR 150 MG CAPXR PO SCH (08:52)
[2018-08-13] MEDS: CARBAMAZEPINE 100 MG CHEW TAB PO SCH ×2 (08:53→21:50)
[2018-08-13] MEDS: AMANTADINE HCL 100 MG CAPSULE PO SCH ×2 (08:54→21:49)
[2018-08-13] MEDS: PANTOprazole 40 MG TAB PO SCH (08:54)
[2018-08-13] MEDS: CIPROFLOXACIN 500 MG TAB PO SCH ×2 (08:54→21:47)
[2018-08-13] MEDS: CARBAMAZEPINE 200 MG TABCR PO SCH ×2 (08:55→21:50)
--- NOTE | 2018-08-13 13:27 | Hospitalist Progress Note ---
Date of Service August 13, 2018 Assessment & Plan (1) Colitis: Admitted with severe lower abdominal pain associated with bloody diarrhea CT scan of the abdomen and pelvis showed;;1. Findings are consistent with a mild nonspecific colitis involving predominantly the left colon. This is likely on an infectious or inflammatory basis in this age group. 2. There is trace thrombus within a peripheral intrahepatic branch of the right portal vein. This is new from 2008 and of indeterminant significance. 3. There are 2 low attenuation hepatic lesions which measure up to 1.6 cm. These are pathologically indeterminant, but were not seen on the 09/15/2008 examination. Follow-up with a nonemergent dedicated MRI of the liver is recommended for further assessment MRI of the abdomen:1. Segmental thrombosis of portal vein branches in segment 8 with resultant transient hepatic intensity difference. This is of uncertain etiology. Follow-up liver MR with Gad[facility] in 3-6 months recommended. Correlate for underlying hypercoagulable state. 2. Benign-appearing liver lesions. 3. Inflammatory changes of the descending colon suggest colitis. Inflammatory bowel disease not excluded. Patient is clinically not any better Started on intravenous antibiotics Appreciate GI input and recommendation Has history of colon cancer and family at early age Need to have colonoscopy down the line Still complains of abdominal pain but diarrhea is controlled No more blood per rectum noted Family history of Crohn's disease-her sister is diagnosed with Crohn's disease Clinically a little bit better today Bowel has not moved-we will give Colace Antibiotics have been changed to oral to continue for a total of 10 days Plan colonoscopy as an outpatient in 4 weeks Percocet for ongoing abdominal pain-has not been controlling pain Will try oxycodone 10 mg every 4 hourly as needed Has been having loose stools Likely secondary to use of antibiotics We will send stool for C. difficile and stool culture (2) Blood in stool: Likely secondary to nonspecific colitis Rule out any significant low colonic relation Frequency of the stool has decreased, no more bloody diarrhea No more bowel movement and/or bloody diarrhea Hemoglobin remains stable (3) Liver lesion, right lobe: Has 2 spots in the liver as in CAT scan Will get abdominal MRI to evaluate for further MRI of the abdomen:1. Segmental thrombosis of portal vein branches in segment 8 with resultant transient hepatic intensity difference. This is of uncertain etiology. Follow-up liver MR with Gadav[facility] in 3-6 months recommended. Correlate for underlying hypercoagulable state. 2. Benign-appearing liver lesions. 3. Inflammatory changes of the descending colon suggest colitis. Inflammatory bowel disease not excluded. Advised to do follow-up as an outpatient (4) Hepatic vein thrombosis: Has partial hepatic vein thrombosis Abdominal MRI has been ordered to evaluate further Oncology consult has been requested Hypercoagulable tests have been sent Started on Lovenox and Coumadin Discussed with the patient the side effect of anticoagulation in detail Hypercoagulable workup is pending Has been on Lovenox and Coumadin INR is therapeutic Lovenox has been stopped Monitor INR-more than 4 today We will hold Coumadin and decrease the dose to 3 mg from tomorrow (5) Seizure disorder: Continue current medication No seizure since admission (6) Depression: Continue current medication GI prophylaxis Intravenous Protonix DVT prophylaxis SCDs CODE STATUS Full Likely discharge tomorrow Subjective She is a 28-year-old female with significant past medical history of seizure disorder, anxiety and depression was admitted with severe lower abdominal pain associated with bloody diarrhea. Noted to have inflammatory/infective colitis and questionable hepatic lesion with partial hepatic vein thrombosis. 08/09 Patient was seen and examined in medical telemetry unit She complains of lower abdominal pain with ongoing bloody diarrhea Denies any fever, chills Denies any chest pain and/or shortness of breath Has history of colon cancer and family at an earlier age 2/23 The patient was seen and examined in medical floor in presence of the She has been complaining of abdominal pain but bloody diarrhea has stopped Denies any other symptoms 08/11 The patient was seen and examined in medical floor Her abdominal pain is is a bit better today She has not moved her bowels She denies any other symptoms 08/12 Has been feeling better Complains to have some abdominal pain Denies any other symptoms 08/13 Patient was seen and examined in medical floor She has been complaining of more pain in the abdomen with diarrhea Denies any more blood per rectum Has been tolerating regular diet yet Physical Exam 2 Vital Signs (Past 24 Hours): Last Vital Signs Temp 36.7 C 08/13/18 11:37 Pulse 78 08/13/18 11:37 Resp 18 08/13/18 11:37 BP 125/76 08/13/18 11:37 Pulse Ox 99 08/13/18 11:37 Physical Exam: Moderate distress at rest with abdominal pain Constitutional: WD/WN, vitals as above Eyes: PERRL, conjunctivae normal, anicteric sclerae ENMT: external ear and nose normal, oropharynx normal Neck: trachea midline, no thyromegaly Respiratory: normal respiratory effort Auscultation: lungs clear to auscultation bilaterally Cardiovascular: Rate/Rhythm: regular rate and regular rhythm Heart Sounds: normal S1 and normal S2 Gastrointestinal (Abdomen): Inspection/Auscultation: abdomen normal to inspection, + abdomen distended (Minimal distention) and normal bowel sounds Percussion/Palpation: + abdomen tender (Almost resolved) and abdomen soft; no guarding and abdomen not rigid Neurologic: PERRL, EOMI, accommodation nl, no face palsy, no dysarthria Psychiatric: A+Ox3, euthymic affect Results & Data Laboratory Results Short CBC 08/13/18 Range/Units 05:40 WBC 4.64 L (4.8-10.8) K/uL Hgb 12.2 (12.0-16.0) g/dL Hct 36.3 L (37-47) % Plt Count 229 (130-400) K/uL BMP 08/13/18 05:40 Sodium 139 Potassium 3.6 Chloride 106 Carbon Dioxide 26 BUN 3 L Creatinine 0.58 L Glucose 83 Calcium 7.6 L Medications Administered Current Inpatient Medications Acetaminophen (Tylenol) 650 mg PO Q4H PRN PRN Reason: Pain or Fever Stop: 09/08/18 07:04 Albuterol (Ventolin Hfa) 2 puffs INH Q4H PRN PRN Reason: Shortness Of Breath Or Wheezin Amantadine HCl (Symmetrel) 100 mg PO BID [facility] Stop: 09/08/18 08:59 Last Admin: 08/13/18 08:54 Dose: 100 mg Carbamazepine (Tegretol) 150 mg PO BID [facility]; Protocol Stop: 09/08/18 08:59 Last Admin: 08/13/18 08:53 Dose: 150 mg Carbamazepine (Tegretol Xr) 600 mg PO BID [facility] Stop: 09/08/18 08:59 Last Admin: 08/13/18 08:55 Dose: 600 mg Ciprofloxacin (Cipro) 500 mg PO BID [facility]; Protocol Stop: 08/22/18 20:59 Last Admin: 08/13/18 08:54 Dose: 500 mg Dicyclomine HCl (Bentyl) 10 mg PO BID PRN PRN Reason: cramping Stop: 09/08/18 10:10 Last Admin: 08/13/18 05:10 Dose: 10 mg Docusate Sodium (Colace) 100 mg PO BID PRN PRN Reason: Constipation Stop: 09/10/18 20:59 Last Admin: 08/11/18 14:35 Dose: 100 mg Gabapentin (Neurontin) 300 mg PO TID [facility] Stop: 09/08/18 08:59 Last Admin: 08/13/18 08:52 Dose: 300 mg Gadoxetate Disodium (Eovist) 10 ml IV ONCE PRN PRN Reason: Interaction Checking Stop: 08/13/18 16:31 Last Admin: 08/09/18 16:34 Dose: 10 ml Sodium Chloride (Nss 1000ml) 1,000 mls @ 100 mls/hr IV .Q10H [facility] Stop: 09/08/18 07:04 Last Admin: 08/13/18 11:52 Dose: 100 mls/hr Lorazepam (Ativan) 1 mg PO TID [facility] Stop: 09/08/18 08:59 Last Admin: 08/13/18 08:51 Dose: 1 mg Metronidazole (Flagyl) 500 mg PO BID [facility]; Protocol Stop: 08/20/18 08:59 Last Admin: 08/13/18 08:52 Dose: 500 mg Nitroglycerin (Nitrostat) 0.4 mg SL UD PRN PRN Reason: Chest Pain Stop: 09/08/18 07:04 Ondansetron HCl (Zofran) 4 mg IV Q6H PRN PRN Reason: Nausea Stop: 09/08/18 07:04 Last Admin: 08/13/18 04:47 Dose: 4 mg Oxycodone HCl (Roxicodone Immediate Rel) 10 mg PO Q4H PRN PRN Reason: Pain Stop: 08/27/18 12:46 Pantoprazole Sodium (Protonix) 40 mg PO QAM [facility] Stop: 09/12/18 08:59 Last Admin: 08/13/18 08:54 Dose: 40 mg Phenytoin Sodium (Dilantin Er) 200 mg PO DAILYBB [facility] Stop: 09/08/18 07:14 Last Admin: 08/13/18 06:02 Dose: 200 mg Phenytoin Sodium (Dilantin Er) 300 mg PO PM [facility] Stop: 09/08/18 20:59 Last Admin: 08/12/18 20:18 Dose: 300 mg Venlafaxine HCl (Effexor Extended Release) 150 mg PO QAM [facility] Stop: 09/08/18 08:59 Last Admin: 08/13/18 08:52 Dose: 150 mg Warfarin Sodium (Coumadin) 3 mg PO DAILY@1600 [facility] Stop: 09/13/18 15:59 Zolpidem Tartrate (Ambien) 5 mg PO HS PRN PRN Reason: Sleep Stop: 09/09/18 23:04 Last Admin: 08/12/18 20:17 Dose: 5 mg
[2018-08-13] MEDS: OXYCODONE HCL IR 5 MG TAB (IMMEDIATE RELEASE) PO PRN ×3 (14:21→23:06)
[2018-08-13] MEDS ORDERED: PHYTONADIONE 5 MG TAB PO STA (14:33)
[2018-08-13] MEDS: ACETAMINOPHEN 325 MG TAB PO PRN (17:51)
[2018-08-14] MEDS: OXYCODONE HCL IR 5 MG TAB (IMMEDIATE RELEASE) PO PRN ×4 (04:00→20:55)
[2018-08-14] MEDS: PHENYTOIN SODIUM ER 100 MG CAP PO SCH ×2 (06:42→20:54)
[2018-08-14] MEDS: SODIUM CHLORIDE 0.9% 1000ML 1,000 ML IV SCH ×2 (06:43→17:10)
[2018-08-14 06:52] LABS: INR 1.8 (0.9-1.1); Prothrombin Time 17.5 Seconds (9.0-12.0)
[2018-08-14] MEDS: LORazepam 1 MG TAB PO SCH ×3 (08:05→20:53)
[2018-08-14] MEDS: ONDANSETRON INJ 2 MG/ML 2 ML VIAL IV PRN (08:05)
[2018-08-14] MEDS: ACETAMINOPHEN 325 MG TAB PO PRN (08:05)
[2018-08-14] MEDS: metroNIDAZOLE 500 MG TAB PO SCH ×2 (08:06→20:54)
[2018-08-14] MEDS: GABAPENTIN 300 MG CAP PO SCH ×3 (08:06→20:54)
[2018-08-14] MEDS: CARBAMAZEPINE 200 MG TABCR PO SCH ×2 (08:06→20:55)
[2018-08-14] MEDS: CIPROFLOXACIN 500 MG TAB PO SCH ×2 (08:06→20:54)
[2018-08-14] MEDS: PANTOprazole 40 MG TAB PO SCH (08:07)
[2018-08-14] MEDS: AMANTADINE HCL 100 MG CAPSULE PO SCH ×2 (08:07→20:54)
[2018-08-14] MEDS: VENLAFAXINE HCL XR 150 MG CAPXR PO SCH (08:07)
[2018-08-14] MEDS: CARBAMAZEPINE 100 MG CHEW TAB PO SCH ×2 (08:07→20:55)
[2018-08-14] MEDS: DICYCLOMINE HCL 10 MG CAP PO SCH ×2 (10:45→20:54)
[2018-08-14] MEDS ORDERED: WARFARIN SOD 2 MG TAB PO SCH (16:00)
[2018-08-14] MEDS ORDERED: WARFARIN SOD 3 MG TAB PO SCH (16:00)
--- NOTE | 2018-08-14 17:23 | Hospitalist Progress Note ---
Date of Service August 14, 2018 Assessment & Plan (1) Colitis: Patient is a 28 yr female who presented with Severe lower abdominal pain associated with bloody diarrhea Colitis: Family history of Crohn's disease-sister is diagnosed with Crohn's disease --CT abd: Findings are consistent mild nonspecific colitis involving predominantly the left colon. --MRI Abd:Segmental thrombosis of portal vein branches in segment 8 with resultant transient hepatic intensity difference. This is of uncertain etiology. Follow-up liver MR with Gadavist in 3-6 months recommended. Correlate for underlying hypercoagulable state. Benign-appearing liver lesions. --Continue Abx--Cipro/Flagyl for 10 days --Outpatient Colonoscopy in 4-6 weeks --Pain Control --Appreciate GI Input --Advance diet as tolerated --Stool Studies pending (2) Blood in stool: Likely secondary to nonspecific colitis No more bloody diarrhea Monitor CBC (3) Liver lesion, right lobe: MRI abd: Benign-appearing liver lesions. Needs repeat imaging in 3 months (4) Hepatic vein thrombosis: Has partial hepatic vein thrombosis Hypercoagulable work up pending Appreciate Oncology Input Continue Coumadin Monitor INR:1.8 today (5) Seizure disorder: Continue current medication No seizure since admission (6) Depression: Continue current medication GI prophylaxis Continue PPI DVT Px: SCDs, on Coumadin CODE STATUS Full Disposition: Plan to discharge home when stable Subjective Patient is seen and examined at bedside Patient complains of abdominal pain has non bloody diarrhea overnight Denies chest pain, SOB, dizziness No other complaints Discussed with GI today Advance diet as tolerated Physical Exam Vital Signs (Past 24 Hours): Last Vital Signs Temp 36.8 C 08/14/18 16:03 Pulse 80 08/14/18 16:03 Resp 18 08/14/18 16:03 BP 118/75 08/14/18 16:03 Pulse Ox 99 08/14/18 16:03 Physical Exam: Physical Exam: Vitals signs as noted above General Appearance:Moderately built and nourished, no apparent distress Head: normocephalic, Atraumatic Eyes: normal inspection, EOMI Neck: supple, Trachea midline Respiratory/Chest: Normal breath sounds, CTA Cardiovascular: S1, S2, No murmur Abdomen/GI:Soft, generalized tender, Bowel sounds present Extremities/Musculoskelatal:normal inspection, no edema Neurologic/Psych:AAOX3, grossly no focal neurological deficits Skin: normal color, warm
[2018-08-14] MEDS: ZOLPIDEM TARTRATE 5 MG TAB PO PRN (21:20)
[2018-08-15] MEDS: SODIUM CHLORIDE 0.9% 1000ML 1,000 ML IV SCH ×3 (02:59→22:21)
[2018-08-15] MEDS: OXYCODONE HCL IR 5 MG TAB (IMMEDIATE RELEASE) PO PRN ×3 (05:27→19:44)
[2018-08-15] MEDS: PHENYTOIN SODIUM ER 100 MG CAP PO SCH ×2 (05:28→21:15)
[2018-08-15] MEDS: ONDANSETRON INJ 2 MG/ML 2 ML VIAL IV PRN ×2 (05:50→17:59)
[2018-08-15 05:55] LABS: Hematocrit (blood only) 40.4 % (37-47); Hemoglobin 13.6 g/dL (12.0-16.0); Mean Corpuscular Hgb Conc 33.7 g/dL (32-36); Mean Corpuscular Volume 89.6 fL (80-100); Mean Platelet Volume 8.7 fL (7.4-10.4); Platelet Count 290 K/uL (130-400); RDW Coefficient of Variation 13.3 % (11.5-14.5); RDW Standard Deviation 43.5 fL (36.4-46.3); Red Blood Count 4.51 M/uL (4.2-5.4); White Blood Count 5.66 K/uL (4.8-10.8)
[2018-08-15 06:04] LABS: INR 1.5 (0.9-1.1); Prothrombin Time 14.6 Seconds (9.0-12.0)
[2018-08-15 06:41] LABS: BUN Creatinine Ratio 4.8 (10-20); Calcium 7.9 mg/dl (8.5-10.1); Creatinine Clr Calc Pharmacy 162.3 ml/min; Est GFR (African American) 141.8; Est GFR (Non-African American) 122.3; Potassium 3.3 mmol/L (3.5-5.1)
[2018-08-15] MEDS ORDERED: POTASSIUM CHLORIDE 10 MEQ TABCR PO ONE (08:30)
[2018-08-15] MEDS: metroNIDAZOLE 500 MG TAB PO SCH ×2 (08:54→21:16)
[2018-08-15] MEDS: CIPROFLOXACIN 500 MG TAB PO SCH ×2 (08:54→21:18)
[2018-08-15] MEDS: AMANTADINE HCL 100 MG CAPSULE PO SCH ×2 (08:54→21:16)
[2018-08-15] MEDS: VENLAFAXINE HCL XR 150 MG CAPXR PO SCH (08:55)
[2018-08-15] MEDS: PANTOprazole 40 MG TAB PO SCH (08:55)
[2018-08-15] MEDS: CARBAMAZEPINE 100 MG CHEW TAB PO SCH ×2 (08:55→21:16)
[2018-08-15] MEDS: DICYCLOMINE HCL 10 MG CAP PO SCH ×3 (08:56→21:14)
[2018-08-15] MEDS: GABAPENTIN 300 MG CAP PO SCH ×3 (08:56→21:15)
[2018-08-15] MEDS: CARBAMAZEPINE 200 MG TABCR PO SCH ×2 (08:57→21:17)
[2018-08-15] MEDS: LORazepam 1 MG TAB PO SCH ×3 (08:59→21:14)
[2018-08-15] MEDS ORDERED: MoRPHine SULFATE 4 MG/ML 1 ML CARP\\VIAL IV PRN ×2 (10:24→15:41)
[2018-08-15] MEDS ORDERED: IOVERSOL 100ml IV PRN (12:36)
--- NOTE | 2018-08-15 13:06 | CT Scan Report ---
CT OF THE ABDOMEN AND PELVIS WITH CONTRAST CLINICAL HISTORY: Abdominal pain. COMPARISON STUDY: CT of the abdomen and pelvis and MRI of the abdomen August 09, 2018. TECHNIQUE: Following IV administration of 93 mL of Optiray-320, axial images of the abdomen and pelvi s were obtained from the lung bases to the proximal femurs. Images were reviewed in the axial, sagitt al, and coronal planes. IV contrast was administered without complication. Automated exposure contro l was utilized for the study. A dose lowering technique was utilized adhering to the principles of A REMY. Oral contrast was administered. CT DOSE: 800.31 mGy.cm FINDINGS: A trace left pleural effusion is noted. Note is again made of portal venous thrombus within segmental branches within segment 5 of the liver of the liver. This is similar to exam of July 202018. The main portal vein remains patent. There is no biliary or pancreatic ductal dilatation. A 1.4 cm segment 5 hepatic lesion likely reflects a hemangioma when correlating with prior MRI. The spl een, adrenal glands, kidneys and pancreas are unremarkable. There is no hydronephrosis or hydroureter . A few prominent loops of small bowel are noted without transition point to suggest a bowel obstruct ion. Left colon wall thickening shown on CT of August 09, 2017 has resolved. There is no lymphadeno pilar. There are no suspicious osseous lesions. There is no free fluid. The colon is slightly fluid-f illed. IMPRESSION: 1. No significant change in portal venous thrombus within segment [address] of the liver since CT of August 09, 2018. 3. Resolution of left colon wall thickening since prior CT. 3. Mildly dilated small bowel without transition point to suggest a bowel obstruction. Slightly fluid -filled colon which could reflect a diarrheal state. Electronically signed by: Bacilio Garber M.D. 08/15/2018 1:05 PM
--- NOTE | 2018-08-15 14:55 | Gastroenterology Progress Note ---
Date of Service August 15, 2018 Assessment & Plan (1) Blood in stool: (2) Hepatic vein thrombosis: No evidence of liver disease on imaging or labs to explain cause of hepatic vein thrombosis. Imaging with steatosis but this would not typically cause thrombus. Agree with anticoagulation. Will await results coagulopathy lab work up. (3) Liver lesion, right lobe: OP MRI in 3 months. (4) Colitis: This appears resolved on CT. CT mention of mildly dilated small bowel likely represents a mild narcotic induced ileus. For pain: recommend dicyclomine QID. Because 10mg not effective, could try 20mg TID . Wean off narcotics. These may be causing her pain at this time. The small thrombus noted does not significantly effect blood flow and is not likely to be causing pain. Consider pain management consult and psych consult (pt has been crying frequently). Because no clear cause of abdominal pain on CT, would advance to a regular diet. Sometimes liquids can cause nause. Regarding diarrhea, would recheck for c-diff, culture. If (-) then would treat with cholestyramine 1 gram BID. Supervising Physician Co-Signing Physician Notes I have seen and examined the patient and agree with the assessment and plan as per ANTOINETTE Davis. Abdomen is soft nontender at bedside. Patient seems to be feeling like morphine helps things for her. Her CT shows improvement in colitis. Subjective Ms. Donya Mathis is a 28 yr old female with a hx of seizure disorder and strong family hx of colon cancer (sister, age 23) who presented on 08/08 with abdominal pain. On arrival non contrast CT with mild left sided colitis, two incidental liver lesions, largest 1.6 cm, and trace thrombus of a small branch of the right hepatic vein. f/u MRI suggesting lesions are most likely hemangioma, hepatic cyst and artifact. F/u MRI 3 months recommended. We were asked to re-evaluate this pt who continues with pain, nausea, diarrhea (most recent BM on 08/13), CT repeated today with IV, oral contrast with resolution of colitis, mildly dilated small bowel w/o obstruction and no change in thrombus. During my visit with the pt, she was crying with pain. I tried to reassure her that her abdomen is soft, and she told me that "Its only soft since I just took morphine. Before that it was hard." She reports two areas of pain: RLQ and epigastric area. She also c/o early satiety, feeling full. She has not transitioned back to regular consistency food yet. Constitutional: as per Subjective / HPI Gastrointestinal: + abdominal pain, + nausea, + vomiting (most recently Sunday), + diarrhea/loose stools and + blood in stools Physical Exam Vital Signs (Past 24 Hours): Last Vital Signs Temp 36.7 C 08/15/18 12:05 Pulse 73 08/15/18 12:05 Resp 20 08/15/18 12:05 BP 117/81 08/15/18 12:05 Pulse Ox 99 08/15/18 12:05 Constitutional: WD/WN, vitals as above Eyes: PERRL, conjunctivae normal, anicteric sclerae ENMT: external ear and nose normal, oropharynx normal Neck: trachea midline, no thyromegaly Respiratory: normal respiratory effort, lungs clear to auscultation Cardiovascular: RRR, no murmur, no edema Gastrointestinal (Abdomen): Inspection/Auscultation: + hypoactive bowel sounds Percussion/Palpation: + abdomen tender (lower abdomen L>R) and abdomen soft Skin: no rashes, warm and dry normal turgor and + pallor Neurologic: PERRL, EOMI, accommodation nl, no face palsy, no dysarthria awake; not confused Psychiatric: A+Ox3, euthymic affect Orientation: alert, oriented x 3 and cooperative Cognition: recent memory grossly intact and language grossly intact
--- NOTE | 2018-08-15 15:21 | Gastroenterology Progress Note ---
Date of Service August 15, 2018 Assessment & Plan (1) Blood in stool: (2) Hepatic vein thrombosis: No evidence of liver disease on imaging or labs to explain cause of hepatic vein thrombosis. Imaging with steatosis but this would not typically cause thrombus. Agree with anticoagulation. Will await results coagulopathy lab work up. (3) Liver lesion, right lobe: OP MRI in 3 months. (4) Colitis: This appears resolved on CT. CT mention of mildly dilated small bowel likely represents a mild narcotic induced ileus. For pain: recommend dicyclomine QID. Because 10mg not effective, could try 20mg TID . Wean off narcotics. These may be causing her pain at this time. The small thrombus noted does not significantly effect blood flow and is not likely to be causing pain. Consider pain management consult and psych consult (pt has been crying frequently). Because no clear cause of abdominal pain on CT, would advance to a regular diet. Sometimes liquids can cause nause. Regarding diarrhea, would recheck for c-diff, culture. If (-) then would treat with cholestyramine 1 gram BID. Supervising Physician Co-Signing Physician Notes I have already seen the pateint- the note was signed on 08/15/18. Subjective Ms. Donya Mathis is a 28 yr old female with a hx of seizure disorder and strong family hx of colon cancer (sister, age 23) who presented on 08/08 with abdominal pain. On arrival non contrast CT with mild left sided colitis, two incidental liver lesions, largest 1.6 cm, and trace thrombus of a small branch of the right hepatic vein. f/u MRI suggesting lesions are most likely hemangioma, hepatic cyst and artifact. F/u MRI 3 months recommended. We were asked to re-evaluate this pt who continues with pain, nausea, diarrhea (most recent BM on 08/13), CT repeated today with IV, oral contrast with resolution of colitis, mildly dilated small bowel w/o obstruction and no change in thrombus. During my visit with the pt, she was crying with pain. I tried to reassure her that her abdomen is soft, and she told me that "Its only soft since I just took morphine. Before that it was hard." She reports two areas of pain: RLQ and epigastric area. She also c/o early satiety, feeling full. She has not transitioned back to regular consistency food yet. Constitutional: as per Subjective / HPI Gastrointestinal: + abdominal pain, + nausea, + vomiting (most recently Sunday), + diarrhea/loose stools and + blood in stools Physical Exam Vital Signs (Past 24 Hours): Last Vital Signs Temp 36.7 C 08/15/18 12:05 Pulse 75 08/15/18 15:14 Resp 20 08/15/18 12:05 BP 117/81 08/15/18 12:05 Pulse Ox 99 08/15/18 12:05
[2018-08-15] MEDS: WARFARIN SOD 3 MG TAB PO SCH (15:43)
--- NOTE | 2018-08-15 17:20 | Hospitalist Progress Note ---
Date of Service August 15, 2018 Assessment & Plan (1) Colitis: Patient is a 28 yr female who presented with Severe lower abdominal pain associated with bloody diarrhea Colitis: Family history of Crohn's disease-sister is diagnosed with Crohn's disease --CT abd: Findings are consistent mild nonspecific colitis involving predominantly the left colon. --MRI Abd:Segmental thrombosis of portal vein branches in segment 8 with resultant transient hepatic intensity difference. This is of uncertain etiology. Follow-up liver MR with Gad[facility] in 3-6 months recommended. Correlate for underlying hypercoagulable state. Benign-appearing liver lesions. --Repeat CT ABD: No significant change in portal venous thrombus within segment 8 of the liver since CT of August 09, 2018. Resolution of left colon wall thickening since prior CT. Mildly dilated small bowel without transition point to suggest a bowel obstruction. Slightly fluid-filled colon which could reflect a diarrheal state. --Continue Abx--Cipro/Flagyl to complete 10 day course --Outpatient Colonoscopy in 4-6 weeks --Consulted pain management for Pain Control --Minimize Narcotic use as able --Appreciate GI Input --Advance diet today --Stool Studies: negative for C.diff --Dicyclomine increased to QID --Started on Cholestyramine on diarrhea (2) Blood in stool: Likely secondary to nonspecific colitis No more bloody diarrhea Monitor CBC (3) Liver lesion, right lobe: MRI abd: Benign-appearing liver lesions. Needs repeat imaging in 3 months (4) Hepatic vein thrombosis: Has partial hepatic vein thrombosis Hypercoagulable work up pending Appreciate Oncology Input Increase Coumadin to 3mg today Monitor INR:1.5 today (5) Seizure disorder: Continue current medication No seizure since admission (6) Depression: Continue current medication GI prophylaxis Continue PPI DVT Px: SCDs, on Coumadin CODE STATUS Full Disposition: Plan to discharge home when stable Subjective Patient is seen and examined at bedside Complains of severe abdominal pain, nausea and vomiting today CT abd showed no signs of bowel obstruction Discussed with GI today Denies chest pain, SOB, dizziness No other complaints Physical Exam Vital Signs (Past 24 Hours): Last Vital Signs Temp 36.9 C 08/15/18 15:40 Pulse 72 08/15/18 15:40 Resp 18 08/15/18 15:40 BP 119/80 08/15/18 15:40 Pulse Ox 96 08/15/18 15:40 Physical Exam: Physical Exam: Vitals signs as noted above General Appearance:Moderately built and nourished, no apparent distress Head: normocephalic, Atraumatic Eyes: normal inspection, EOMI Neck: supple, Trachea midline Respiratory/Chest: Normal breath sounds, CTA Cardiovascular: S1, S2, No murmur Abdomen/GI:Soft, generalized tender, Bowel sounds present Extremities/Musculoskelatal:normal inspection, no edema Neurologic/Psych:AAOX3, grossly no focal neurological deficits Skin: normal color, warm Results & Data Laboratory Results Short CBC 08/15/18 Range/Units 05:30 WBC 5.66 (4.8-10.8) K/uL Hgb 13.6 (12.0-16.0) g/dL Hct 40.4 (37-47) % Plt Count 290 (130-400) K/uL BMP 08/15/18 05:30 Sodium 139 Potassium 3.3 L Chloride 106 Carbon Dioxide 26 BUN 3 L Creatinine 0.60 Glucose 85 Calcium 7.[address] ABD: 1. No significant change in portal venous thrombus within segment 8 of the liver since CT of August 09, 2018. 3. Resolution of left colon wall thickening since prior CT. 3. Mildly dilated small bowel without transition point to suggest a bowel obstruction. Slightly fluid-filled colon which could reflect a diarrheal state.
[2018-08-15] MEDS: ZOLPIDEM TARTRATE 5 MG TAB PO PRN (22:17)
[2018-08-15] MEDS: CHOLESTYRAMINE LIGHT 4 GM PKT PO SCH (22:18)
[2018-08-16] MEDS: OXYCODONE HCL IR 5 MG TAB (IMMEDIATE RELEASE) PO PRN ×2 (02:08→11:24)
[2018-08-16] MEDS: PHENYTOIN SODIUM ER 100 MG CAP PO SCH (05:46)
[2018-08-16 06:11] LABS: INR 1.7 (0.9-1.1); Prothrombin Time 16.9 Seconds (9.0-12.0)
[2018-08-16 06:23] LABS: BUN Creatinine Ratio 6.9 (10-20); Calcium 7.7 mg/dl (8.5-10.1); Creatinine Clr Calc Pharmacy 141.1 ml/min; Est GFR (African American) 135.4; Est GFR (Non-African American) 116.8; Magnesium 1.9 mg/dl (1.8-2.4); Potassium 3.6 mmol/L (3.5-5.1)
[2018-08-16] MEDS: SODIUM CHLORIDE 0.9% 1000ML 1,000 ML IV SCH ×2 (08:00→17:35)
[2018-08-16] MEDS ORDERED: BUPIVACAINE 0.5 % 5 MG/1 ML MPF 30ML VIAL ONE (08:41)
[2018-08-16] MEDS ORDERED: TRIAMCINOLONE ACET 40 MG/ML VIAL ONE (08:42)
[2018-08-16] MEDS: CARBAMAZEPINE 200 MG TABCR PO SCH (09:03)
[2018-08-16] MEDS: GABAPENTIN 300 MG CAP PO SCH ×2 (09:03→14:51)
[2018-08-16] MEDS: CIPROFLOXACIN 500 MG TAB PO SCH (09:04)
[2018-08-16] MEDS: CARBAMAZEPINE 100 MG CHEW TAB PO SCH (09:05)
[2018-08-16] MEDS: PANTOprazole 40 MG TAB PO SCH (09:05)
[2018-08-16] MEDS: AMANTADINE HCL 100 MG CAPSULE PO SCH (09:05)
[2018-08-16] MEDS: VENLAFAXINE HCL XR 150 MG CAPXR PO SCH (09:05)
[2018-08-16] MEDS: metroNIDAZOLE 500 MG TAB PO SCH (09:07)
[2018-08-16] MEDS: DICYCLOMINE HCL 10 MG CAP PO SCH ×3 (09:08→17:04)
[2018-08-16] MEDS: LORazepam 1 MG TAB PO SCH ×2 (09:23→14:51)
--- NOTE | 2018-08-16 10:18 | Pain Management Consultation ---
Date of Consultation August 16, 2018 Assessment & Plan (1) Myofascial pain: * Recommend diagnostic trigger point injections in the palpable trigger points in the right upper quadrant of the abdomen. Risks, benefits, diagnostic nature of the procedure as well as treatment alternatives including use of muscle relaxants and physical therapy discussed with patient. Patient elected to proceed with diagnostic trigger point injections. Please see separate procedure note. * Once patient acute colitis has resolved, and if the symptoms persist, she may be candidate to undergo outpatient physical therapy for myofascial pain. * Continue current opiate analgesic regimen as an inpatient but would advise caution for long-term opioid therapy due to multiple comorbid conditions. Present on Admission?: Yes (2) Colitis: (3) Anxiety: * Patient demonstrated extreme anxiety throughout the interview, exam and trigger point injections. She was tearful demonstrated poor coping behaviors with regards to her symptoms. * Recommend adjustment of anxiolytic medications or behavioral consult to include cognitive behavior therapy to develop improved coping mechanisms as her underlying comorbid conditions and GI issues are treated. (4) Depression: (5) Hepatic vein thrombosis: (6) Liver lesion, right lobe: (7) Seizure disorder: History of Present Illness Requesting Physician: Donya Mathis is a 28-year-old female admitted to [facility] with abdominal pain. She has multiple comorbid conditions including history of colitis and hepatic vein thrombosis. She declined experiencing abdominal pain predominantly in the right upper quadrant that started without any known trauma approximately 1-2 weeks ago acute onset. She reports the pain increases in intensity after ingestion of heavy meal, Valsalva maneuver, bending forward or performing any physical activity that requires use of the abdominal muscles. Pain also increases with bowel movement. She reports that she has pain-free episodes when she is lying in supine, mobile position. Pain is predominant located right upper quadrant but radiates into the right lat eral flank into the proximal thoracolumbar spine. Pain is characterized as sharp, shooting episodes with intervening "pressure-like" sensation. Patient reports he is able to elicit her symptoms by pushing certain areas over her right upper quadrant of the abdomen. She denies any history of shingles or rashes or lesions in that area. Also has history of back pain, denies any radicular component to the right flank in the past. Patient rates the pain as 9/10 when severe and 1/10 when minimal. Pain is predominantly intensified after if any physical activity such as ambulating or standing and bending forward. She reports that the pain interferes with her ability to perform activities required for daily living. She is currently treated by opiate analgesics from which she reports good eff icacy. Patient denies any falls, injuries or trauma as a cause of her symptoms. She experienced a seizure several months ago but not coincident to her right upper quadrant abdominal pain. She has a history of chronic low back pain in left lower extremity spasms from unknown etiology. She is being treated with medical cannabis for her low back pain as well as for her seizures. She reports using medical cannabis several times a day. She has been using inhaled form of medical cannabis but has not had any since her admission to [facility]. She has several comorbid conditions including seizure disorder, anxiety and depression. She has been on Lorazepam for anxiety as an outpatient. [facility] was checked and is noted the patient has been receiving lorazepam on a regular basis from consistent providers and using consistent pharmacy. Pain Assessment Full Body Front + Back: 1. Right upper quadrant pain. [facility] Combined Pain Scale: 6-Mod to Severe - Significant limitations of ADLs. Hard to do anything Allergies Allergy/AdvReac Type Severity Reaction Status Date / Time prednisone AdvReac Intermediate DILANTIN Verified 08/09/18 02:29 TOXICITY sulfamethoxazole AdvReac Intermediate BURNING,ALIX Verified 08/09/18 02:29 RRHEA trimethoprim AdvReac Intermediate BURNING,ALIX Verified 08/09/18 02:29 RRHEA Bactrim AdvReac Unknown BURNING,ALIX Verified 12/18/17 12:59 RRHEA Home Medications Home Medications Medication Instructions Recorded Confirmed Type Dilantin Extended 300 mg PO PM 08/09/18 08/09/18 History albuterol sulfate 2 puff INHALATION Q4H PRN 08/09/18 08/09/18 History amantadine HCl 100 mg PO BID 08/09/18 08/09/18 History carbamazepine 150 mg PO BID 08/09/18 08/09/18 History carbamazepine (mood stabiliz) 600 mg PO BID 08/09/18 08/09/18 History gabapentin 300 mg PO TID 08/09/18 08/09/18 History lorazepam 1 mg PO TID 08/09/18 08/09/18 History phenytoin sodium extended 200 mg PO DAILYBB 08/09/18 08/09/18 History [Dilantin Extended] venlafaxine [Effexor XR] 150 mg PO QAM 08/09/18 08/09/18 History Patient History Medical History Seizure disorder (Chronic) Asthma Social History Communication Ability: Effective Beliefs That Will Affect Care: None Current Living Situation: Spouse Feels Safe at Home: Yes Safety Concerns: Feels Safe At This Time Smoking Status: Former smoker Hx Alcohol Use: No Hx Substance Use: No Review of Systems Constitutional: no fever, no chills, no sweats, no malaise and no weight loss Eyes: no photophobia Respiratory: no cough, no dyspnea, no pain on inspiration and no pain with cough Cardiovascular: no chest pain, no dyspnea and no orthopnea Gastrointestinal: as per Subjective / HPI Musculoskeletal: + back pain and + radicular pain Integumentary: no rash and no lesions Neurologic: as per Subjective / HPI; no gait abnormality, no localized weakness, no numbness and no paresthesia Psychiatric: no depression and no anxiety Hematologic / Lymphatic: no easy bleeding, no easy bruising, no coagulopathy, no night sweats and no unexplained weight loss Physical Exam Vital Signs (Past 24 Hours): Last Vital Signs Temp 36.5 C 08/16/18 07:58 Pulse 76 08/16/18 09:17 Resp 16 08/16/18 07:58 BP 127/84 08/16/18 09:17 Pulse Ox 99 08/16/18 07:58 Constitutional: WD/WN, vitals as above + behavioral limitations (Extreme anxiety) Gastrointestinal (Abdomen): Inspection/Auscultation: abdomen normal to inspection and + abdominal wall ecchymosis (Right lower quadrant at the site of Lovenox injections); abdomen not distended Percussion/Palpation: + abdomen tender (Tender to palpation with multiple trigger points right upper quadrant. Deep palpation of trigger points reproduce her symptoms and radiation to right flank.); no abdominal mass Skin: no rashes, no lesions and no erythema Psychiatric: Orientation: alert and oriented x 3 Affect: + anxious affect and + tearful affect Mood: + depressed mood and + anxious mood Thought Content: + preoccupation (with concerns regarding the cause of her symptoms.) Results & Data Diagnostic Findings CT OF ABDOMEN AND PELVIS: CLINICAL HISTORY: Abdominal pain. COMPARISON STUDY: CT of the abdomen and pelvis and MRI of the abdomen August 09, 2018. TECHNIQUE: Following IV administration of 93 mL of Optiray-320, axial images of the abdomen and pelvis were obtained from the lung bases to the proximal femurs. Images were reviewed in the axial, sagittal, and coronal planes. IV contrast was administered without complication. Automated exposure control was utilized for the study. A dose lowering technique was utilized adhering to the principles of ALARA. Oral contrast was administered. CT DOSE: 800.31 mGy.cm FINDINGS: A trace left pleural effusion is noted. Note is again made of portal venous thrombus within segmental branches within segment 5 of the liver of the liver. This is similar to exam of August 09, 2018. The main portal vein remains patent. There is no biliary or pancreatic ductal dilatation. A 1.4 cm segment 5 hepatic lesion likely reflects a hemangioma when correlating with prior MRI. The spleen, adrenal glands, kidneys and pancreas are unremarkable. There is no hydronephrosis or hydroureter. A few prominent loops of small bowel are noted without transition point to suggest a bowel obstruction. Left colon wall thickening shown on CT of August 09, 2017 has resolved. There is no lymphadenopathy. There are no suspicious osseous lesions. There is no free fluid. The colon is slightly fluid-filled. IMPRESSION: 1. No significant change in portal venous thrombus within segment 8 of the liver since CT of August 09, 2018. 3. Resolution of left colon wall thickening since prior CT. 3. Mildly dilated small bowel without transition point to suggest a bowel obstruction. Slightly fluid-filled colon which could reflect a diarrheal state. Electronically signed by: Bacilio Garber M.D. 08/15/2018 1:05 PM Dictated: 08/15/18 1246 Transcribed: 08/15/18 1246
[2018-08-16] MEDS: CHOLESTYRAMINE LIGHT 4 GM PKT PO SCH (10:31)
--- NOTE | 2018-08-16 10:41 | Procedure Note ---
Procedure Note Date of Service August 16, 2018 Note TRIGGER POINT INJECTION Diagnosis: Myoneural trigger points/myofascial pain Side/muscles injected: Right upper quadrant transverse abdominis. Surgeon: Dr. Harvey Prior to starting, the Patients diagnosis and the procedure were reviewed with the patient in detail. Possible risks and complications including infection, bleeding, damage to surrounding structures and increased pain were discussed. Alternative therapies were also reviewed. Patients questions were answered and they agreed to proceed. Informed consent was obtained. Allergies and medication list was reviewed. The patient was brought to the procedure room and placed in supine position. Immediately prior to starting the procedure, a ``time out was conducted with the staff and the patient where the patient was identified, proposed procedure was verified, consent was reviewed and the proper site for the planned procedure was identified. Patient was not given any intravenous sedation and constant verbal contact was maintained throughout the procedure. On examination, no signs of skin breakdown or infection were noted at the injection site. The site was cleansed with DuraPrep followed by Betadine. Sterile drapes were applied. Trigger points were identified by palpation. Palpation over the site produced patients typical pain. Using a 1.5 inch, 22- gauge needle was placed in the trigger point and 3 mL of 0.5% bupivacaine containing 10 milligram of Kenalog was injected after negative aspiration. Needle was flushed with additional local and second withdrawn. Hemostasis noted. Band-Aid was applied. Patient tolerated the procedure uneventfully without complications. Patient was brought to recovery area and observed. Vital signs were stable prior to discharge. Patient was discharged home with standard discharge instructions after 30minutes with an adult concrete truck driver.
[2018-08-16] MEDS: ONDANSETRON INJ 2 MG/ML 2 ML VIAL IV PRN (12:17)
[2018-08-16] MEDS: WARFARIN SOD 3 MG TAB PO SCH (15:42)
--- NOTE | 2018-08-16 16:26 | Hospitalist Progress Note ---
Date of Service August 16, 2018 Assessment & Plan (1) Colitis: Patient is a 28 yr female who presented with Severe lower abdominal pain associated with bloody diarrhea Colitis: Family history of Crohn's disease-sister is diagnosed with Crohn's disease --CT abd: Findings are consistent mild nonspecific colitis involving predominantly the left colon. --MRI Abd:Segmental thrombosis of portal vein branches in segment 8 with resultant transient hepatic intensity difference. This is of uncertain etiology. Follow-up liver MR with [facility] in 3-6 months recommended. Correlate for underlying hypercoagulable state. Benign-appearing liver lesions. --Repeat CT ABD: No significant change in portal venous thrombus within segment 8 of the liver since CT of August 09, 2018. Resolution of left colon wall thickening since prior CT. Mildly dilated small bowel without transition point to suggest a bowel obstruction. Slightly fluid-filled colon which could reflect a diarrheal state. --Continue Abx--Cipro/Flagyl to complete 10 day course --Outpatient Colonoscopy in 4-6 weeks --Consulted pain management for Pain Control --Minimize Narcotic use as able --Appreciate GI Input --Advance diet today --Stool Studies: negative for C.diff --Dicyclomine increased to QID --Continue Cholestyramine on diarrhea --Pain improved after Trigger Injections--Appreciate pain management help (2) Blood in stool: Likely secondary to nonspecific colitis No more bloody diarrhea Monitor CBC (3) Liver lesion, right lobe: MRI abd: Benign-appearing liver lesions. Needs repeat imaging in 3 months (4) Hepatic vein thrombosis: Has partial hepatic vein thrombosis Hypercoagulable work up pending Appreciate Oncology Input Increase Coumadin to 3mg today Monitor INR:1.7 today (5) Seizure disorder: Continue current medication No seizure since admission (6) Depression: Continue current medication GI prophylaxis Continue PPI DVT Px: SCDs, on Coumadin CODE STATUS Full Disposition: Plan to discharge home when stable Subjective Patient is seen and examined at bedside Patient had trigger injections today by pain management She feels much better today abdominal pain much improved No nausea, vomiting today Denies chest pain, SOB, dizziness No other complaints Physical Exam Vital Signs (Past 24 Hours): Last Vital Signs Temp 37.2 C 08/16/18 16:01 Pulse 79 08/16/18 16:01 Resp 18 08/16/18 16:01 BP 98/61 L 08/16/18 16:01 Pulse Ox 97 08/16/18 16:01 Physical Exam: Physical Exam: Vitals signs as noted above General Appearance:Moderately built and nourished, no apparent distress Head: normocephalic, Atraumatic Eyes: normal inspection, EOMI Neck: supple, Trachea midline Respiratory/Chest: Normal breath sounds, CTA Cardiovascular: S1, S2, No murmur Abdomen/GI:Soft, mild tender at injection site, Bowel sounds present Extremities/Musculoskelatal:normal inspection, no edema Neurologic/Psych:AAOX3, grossly no focal neurological deficits Skin: normal color, warm
--- NOTE | 2018-08-16 16:52 | Discharge Summary ---
Date of Service August 16, 2018 Admission HPI Per Admitting Provider CHIEF COMPLAINT: Fever, abdominal pain. HISTORY OF PRESENT ILLNESS: This is a 28-year-old female with past medical history significant for seizure disorder, chronic back pain, myoclonus,dystonia, anxiety, history of medical marijuana use, diarrhea, benign neoplasm of pituitary gland. Currently, the patient is wheelchair bound because of left focal dystonia of leg. She had multiple EEG studies over the years and the EEGs were okay. Serial 72hour tracing did not show anything. She has also trialed Sinemet thinking for possible focal dystonia, but the patient apparently did not respond to Tegretol,and it was ruled out.. [facility] also [facility], but no obvious diagnosis was made. Currently, she is on Dilantin, Ativan, carbamazepine, and also she is taking amantadine, Neurontin for pain. Today in the evening, she went out to eat. She ate cheesesteak and after coming home, late in the night she had severe abdominal pain and she had few episodes of bloody bowel movement which brought her to the ER. She is worried that she has colon cancer as she has some other family members with colon cancer. In the ER, she had couple of episodes of bowel movements which had some blood in the stools. In the ER, her Hemoccult was done which was positive for Hemoccult blood. Stool looked brown in color. Currently has significant abdominal pain, no nausea, no vomiting, no chest pain, no shortness of breath, no cough, no fever, no chills, no headache, no blurred visions, no sore throat. She is mostly wheelchair bound, never had this kind of pain before. Admission Exam Per Admitting Provider PHYSICAL EXAMINATION: GENERAL: The patient is of moderate build, not in acute distress. VITAL SIGNS: Temperature 36.9, pulse 87, respiratory rate 20, blood pressure 138/90, oxygen 98% room air. HEENT: No pallor, no icterus. Pupils equal, round, and reactive to light. NECK: No JVD. No neck masses. No carotid bruits. CARDIOVASCULAR: S1, S2 heard, regular rate and rhythm, no murmur, no gallop. RESPIRATORY SYSTEM: Normal AP diameter. No accessory muscle use. No wheezing, no crackles. ABDOMEN: Soft, bowel sounds present. Diffuse abdominal tenderness, no guarding present. No distention. CENTRAL NERVOUS SYSTEM: Cranial nerves II-XII grossly intact. Nonfocal. EXTREMITIES: No edema, no erythema. Principal Diagnosis Discharge Information Discharge Diagnosis Colitis Liver Lesions Hepatic Vein thrombosis Discharge Goals Decrease discomfort,Improve disease control, Improve function Discharge Activity Limitations Resume your previous activity Discharge Data Allergies Allergy/AdvReac Type Severity Reaction Status Date / Time prednisone AdvReac Intermediate DILANTIN Verified 08/09/18 02:29 TOXICITY sulfamethoxazole AdvReac Intermediate BURNING,ALIX Verified 08/09/18 02:29 RRHEA trimethoprim AdvReac Intermediate BURNING,ALIX Verified 08/09/18 02:29 RRHEA Bactrim AdvReac Unknown BURNING,ALIX Verified 12/18/17 12:59 RRHEA Consultations 08/09/18 04:06 ED Decision to Admit Stat 08/09/18 07:05 Consult Case Management - Discharge Planning Routine 08/09/18 08:00 Consult Gastroenterology Routine 08/09/18 14:18 Consult Hematology Routine 08/15/18 15:42 Consult Pain Management Routine Procedures Performed CT ABD: 1.. Findings are consistent with a mild nonspecific colitis involving predominantly the left colon. This is likely on an infectious or inflammatory basis in this age group. 2. There is trace thrombus within a peripheral intrahepatic branch of the right portal vein. This is new from 2008 and of indeterminant significance. 3. There are 2 low attenuation hepatic lesions which measure up to 1.6 cm. These are pathologically indeterminant, but were not seen on the 09/15/2008 examination. Follow-up with a nonemergent dedicated MRI of the liver is recommended for further assessment. 4. Additional findings as above. ABD MRI: 1. Segmental thrombosis of portal vein branches in segment 8 with resultant transient hepatic intensity difference. This is of uncertain etiology. Follow-up liver MR with [facility] in 3-6 months recommended. Correlate for underlying hypercoagulable state. 2. Benign-appearing liver lesions. 3. Inflammatory changes of the descending colon suggest colitis. Inflammatory bowel disease not excluded. Repeat CT abd: 1. No significant change in portal venous thrombus within segment [address] of the liver since CT of August 09, 2018. 2. Resolution of left colon wall thickening since prior CT. 3. Mildly dilated small bowel without transition point to suggest a bowel obstruction. Slightly fluid-filled colon which could reflect a diarrheal state. Ordered Studies 08/09/18 02:32 CT abd pelvis IV con only Urgent 08/09/18 13:56 MR abdomen wo/w con Routine 08/15/18 10:22 CT abd pelvis oral and IV con Urgent Hospital Course (1) Colitis: Patient is a 28 yr female who presented with Severe lower abdominal pain associated with bloody diarrhea Colitis: Family history of Crohn's disease-sister is diagnosed with Crohn's disease --CT abd: Findings are consistent mild nonspecific colitis involving predominantly the left colon. --MRI Abd:Segmental thrombosis of portal vein branches in segment 8 with resultant transient hepatic intensity difference. This is of uncertain etiology. Follow-up liver MR with [facility] in 3-6 months recommended. Correlate for underlying hypercoagulable state. Benign-appearing liver lesions. --Repeat CT ABD: No significant change in portal venous thrombus within segment 8 of the liver since CT of August 09, 2018. Resolution of left colon wall thickening since prior CT. Mildly dilated small bowel without transition point to suggest a bowel obstruction. Slightly fluid-filled colon which could reflect a diarrheal state. --Continue Abx--Cipro/Flagyl to complete 10 day course --Outpatient Colonoscopy in 4-6 weeks --Consulted pain management for Pain Control --Minimize Narcotic use as able --Appreciate GI Input --Advance diet today --Stool Studies: negative for C.diff --Dicyclomine increased to QID --Continue Cholestyramine on diarrhea --Pain improved after Trigger Injections--Appreciate pain management help (2) Blood in stool: Likely secondary to nonspecific colitis No more bloody diarrhea Monitor CBC (3) Liver lesion, right lobe: MRI abd: Benign-appearing liver lesions. Needs repeat imaging in 3 months (4) Hepatic vein thrombosis: Has partial hepatic vein thrombosis Hypercoagulable work up pending Appreciate Oncology Input Increase Coumadin to 3mg today Monitor INR:1.7 today (5) Seizure disorder: Continue current medication No seizure since admission (6) Depression: Continue current medication GI prophylaxis Continue PPI DVT Px: SCDs, on Coumadin CODE STATUS Full Disposition: Plan to discharge home when stable Total Time Total Time Spent Total Time Spent (In Minutes): 43 MINUTES Total Time Includes: Examination of the Patient, Discharge Planning, Medication Reconciliation, Communication With Other Providers and Other Discharge Plan Discharge Items Patient Disposition: Home - Self-Care Reason For Visit: ABDOMINAL PAIN Discharge Diagnosis: Colitis Liver Lesions Hepatic Vein thrombosis Condition: Good Discharge Goals: Decrease discomfort, Improve disease control and Improve function Activity: Resume your previous activity Exercise/Sports: Gradually increase as tolerated Non-emergency contact: Primary Care Provider, Specialist and Office Professionals Call non-emergency contact if: you have any medication questions, your symptoms worsen, your pain is not controlled, your pain is worsening, your pain is u nusual for you, your pain is concerning for you and you have a fever Diet: Regular Addtl Provider Instructions: Follow up with your your PCP on August 21, 2018 at 10:45 AM Follow up with your Office Professionals / in 2 weeks Follow up with your Fruit Thinner Machine Operator in 2-3 weeks Follow up with Coumadin Clinic for dosing of your coumadin as advised Complete the antibiotic course as prescribed Get repeat abdominal MRI in 3 months for assessment of liver lesions and follow up with your integrated specialist Get colonoscopy in 4 weeks as outpatient Seek immediate medical attention if your symptoms reoccur or worsen Take Coumadin 3mg today (08/16/18) Your PT/INR is 1.7 today (08/16/18) Get Blood Test: PT/INR tomorrow (08/17/18) and follow up with coumadin clinic/your Primary Care physician for further coumadin dosing Prescriptions: New metronidazole 500 mg Tablet 500 mg PO BID 3 Days Qty: 6 RF: 0 ciprofloxacin HCl 500 mg Tablet 500 mg PO BID 3 Days Qty: 6 RF: 0 pantoprazole 40 mg Tablet,Delayed Release (Dr/Ec) 40 mg PO QAM 30 Days Qty: 30 RF: 1 docusate sodium 100 mg Capsule 100 mg PO BID PRN (Reason: constipation) 14 Days Qty: 28 RF: 0 dicyclomine 10 mg Capsule 10 mg PO QID 10 Days Qty: 40 RF: 0 Cholestyramine Light 4 gram Powder In Packet 1 g PO BID@1000,2200 10 Days Qty: 20 RF: 0 warfarin [Coumadin] 1 mg tablet 1 mg PO UD 30 Days Qty: 30 RF: 0 warfarin [Coumadin] 2 mg tablet 2 mg PO UD Qty: 60 RF: 0 Continued carbamazepine 100 mg Tablet Extended Release 12 Hr 150 mg PO BID RF: 0 carbamazepine (mood stabiliz) 300 mg Capsule, Er Multiphase 12 Hr 600 mg PO BID RF: 0 venlafaxine [Effexor XR] 150 mg Capsule,Extended Release 24hr 150 mg PO QAM RF: 0 gabapentin 100 mg Capsule 300 mg PO TID RF: 0 lorazepam 1 mg Tablet 1 mg PO TID RF: 0 phenytoin sodium extended [Dilantin Extended] 100 mg Capsule 200 mg PO DAILYBB RF: 0 Dilantin Extended 100 mg 300 mg PO PM RF: 0 amantadine HCl 100 mg Tablet 100 mg PO BID RF: 0 albuterol sulfate 2 puff 2 puff Inhalation Q4H PRN (Reason: Shortness Of Breath Or Wheezing) RF: 0 Stand-Alone Forms: [facility] Discharge Orders: Discharge Order (Routine); Ordered 08/16/18 Ordered By: Narayan Gonzales Admission Data Admit Date/Time: 08/11/18 14:00 Attending Provider: Narayan Gonzales Admit Provider: Antonino Tee Primary Care Provider: Arabella Noland Other Providers: Antonino Tee ; Graciela Landry ; Ashleigh Nazario ; Shadia Sterling ; Sina Rogers ; Keo Ornelas ; Kirsty Kennedy ; Rosana Mckeon ; Ziggy Sarabia ; Tomi Freeman. ; Kathryn Huntley ; Trish Castro ; Jill Sandhu ; Yamilet Lovett ; Lenard Gomez ; Edwin Daniels ; Jamila Joseph ; Christelle Florence Service: Telemetry Medical Other Interventions: Discharge Summary Assessment (RN) Last Done: 08/16/18 17:09 Pending Studies at Discharge: Yes Studies:: Hypercoaguable Work up
[2018-08-22 07:49] LABS: Anti Cardiolipin Ab IgG <14 GPL (< = 14); Anti Cardiolipin Ab IgM <12 MPL (< = 12); Anti-Thrombin III Activity 130 % activity (80-120); B2 Glycoprotein IgA <9 SAU (<=20); B2 Glycoprotein IgG <9 SGU (<=20); B2 Glycoprotein IgM <9 SMU (<=20); Protein S Functional(Activity) 85 % (60-140)
== END 2018-08-16 18:00 | disposition home or self-care (01) | DRG 391 ==
LOC: ED 01:57 → 2N 01:57 → SUATTDRO 08-11 14:00
DX: G89.29 Other chronic pain; G40.909 Epilepsy, unspecified, not intractable, without status epilepticus; K76.9 Liver disease, unspecified; F41.9 Anxiety disorder, unspecified; G25.3 Myoclonus; I82.0 Budd-Chiari syndrome; Z79.899 Other long term (current) drug therapy; K52.9 Noninfective gastroenteritis and colitis, unspecified; G24.9 Dystonia, unspecified; Z87.891 Personal history of nicotine dependence; F32.9 Major depressive disorder, single episode, unspecified; Z88.8 Allergy status to other drugs, medicaments and biological substances

== ENCOUNTER 2018-09-03 18:46 | Inpatient (IN) ==
[2018-09-03] MEDS ORDERED: MoRPHine SULFATE 4 MG/ML 1 ML CARP\\VIAL IV STA (19:05)
[2018-09-03] MEDS ORDERED: ONDANSETRON INJ 2 MG/ML 2 ML VIAL IV STA (19:05)
[2018-09-03] MEDS ORDERED: SODIUM CHLORIDE 0.9% 1000ML 1,000 ML IV SCH (19:15)
[2018-09-03 19:17] LABS: Basophils # (auto) 0.01 K/uL (0-0.2); Basophils % (auto) 0.1 %; Eosinophils # (auto) 0.02 K/uL (0-0.5); Eosinophils % (auto) 0.3 %; Hematocrit (blood only) 45.8 % (37-47); Hemoglobin 15.7 g/dL (12.0-16.0); Immature Granulocytes # (auto) 0.01 K/uL (0.00-0.02); Immature Granulocytes % (auto) 0.1 %; Lymphocytes % (auto) 17.7 %; Mean Corpuscular Hgb Conc 34.3 g/dL (32-36); Mean Corpuscular Volume 90.2 fL (80-100); Mean Platelet Volume 8.5 fL (7.4-10.4); Monocytes # (auto) 0.61 K/uL (0.11-0.59); Neutrophils # (auto) 4.92 K/uL (1.4-6.5); Neutrophils % (auto) 72.8 %; Platelet Count 265 K/uL (130-400); RDW Coefficient of Variation 13.2 % (11.5-14.5); RDW Standard Deviation 43.7 fL (36.4-46.3); Red Blood Count 5.08 M/uL (4.2-5.4); White Blood Count 6.77 K/uL (4.8-10.8)
[2018-09-03 19:27] LABS: iSTAT Creatinine 0.6 mg/dl (0.6-1.3); iSTAT Hemoglobin 16.7 g/dl (12.0-16.0); iSTAT Ionized Calcium 1.13 mmol/l (1.12-1.32); iSTAT Potassium 3.4 mEq/L (3.3-5.0)
[2018-09-03 19:27] LABS: INR 1.2 (0.9-1.1); Prothrombin Time 12.1 Seconds (9.0-12.0)
[2018-09-03 19:33] LABS: Albumin Level 4.2 gm/dl (3.4-5.0); BUN Creatinine Ratio 6.5 (10-20); Calcium 8.8 mg/dl (8.5-10.1); Creatinine Clr Calc Pharmacy 119.2 ml/min; Est GFR (African American) 118.2; Magnesium 1.9 mg/dl (1.8-2.4); Potassium 3.5 mmol/L (3.5-5.1)
[2018-09-03 19:36] LABS: Bilirubin,Total 0.4 mg/dl (0.2-1); Globulin 4.4 gm/dl (2.5-4.0); Total Protein 8.6 gm/dl (6.4-8.2)
[2018-09-03] MEDS ORDERED: IOVERSOL 100ml IV PRN (20:01)
[2018-09-03] MEDS ORDERED: HYDROmorphone INJ 1 MG/ML SYRINGE IV STA (20:19)
[2018-09-03] MEDS ORDERED: METOCLOPRAMIDE HCL INJ 5 MG/ML 2 ML VIAL IV STA (20:19)
--- NOTE | 2018-09-03 20:27 | CT Scan Report ---
CT SCAN OF THE ABDOMEN AND PELVIS WITH IV CONTRAST CLINICAL HISTORY: Generalized abdominal pain. COMPARISON STUDY: Abdominal CT dated 08/15/2018. TECHNIQUE: Following the IV administration of 89 cc of Optiray 320, CT scan of the abdomen and pelvi s is performed from the lung bases to the proximal femora. Images are reviewed in the axial, sagittal , and coronal planes. IV contrast was administered without complication. A dose lowering technique wa s utilized adhering to the principles of ALARA. CT DOSE: 644.79 mGy.cm FINDINGS: Lung bases: The heart is normal in size and without pericardial effusion. The lung bases are clear. Liver: The contrast-enhanced liver is normal in size, contour, and attenuation. There is no intrahepa tic biliary ductal dilatation. There is an indeterminant 1.6 cm hypodense lesion in the inferior rig ht lobe of liver seen on image #180. The hepatic veins and main portal veins are patent. A small amou nt of thrombus is again seen within the intrahepatic portal branches on the right. Gallbladder: Unremarkable. Spleen: Normal in size and attenuation. Pancreas: Unremarkable. Adrenal glands: Unremarkable. Kidneys: The contrast enhanced kidneys are normal in size and without hydronephrosis. The kidneys enh ance symmetrically. A subcentimeter cortical hypodensity in the left lower pole likely represents a c yst but is too small for definitive characterization. Abdominal vasculature: The abdominal aorta is normal in course and caliber. Bowel: There is no bowel obstruction. The appendix is well-visualized and normal. Peritoneum: There is no intraperitoneal free air or abdominal ascites. Small foci of induration withi n the ventral abdominal pannus are likely related to subcutaneous injections. Lymphadenopathy: None. Pelvic viscera: The bladder is decompressed and not well evaluated. The uterus and adnexa are normal as visualized. There are numerous ovarian follicles. A small cyst in the left ovary measures up to 3. 7 cm. Trace free fluid is noted in the cul-de-sac. Skeletal structures: No lytic or blastic lesions are seen. IMPRESSION: 1. There are no acute infectious or inflammatory findings in the abdomen or pelvis. 2. There is a 3.7 cm left ovarian cyst. 3. Trace nonspecific free fluid in cul-de-sac is likely within physiologic limits. 4. Trace thrombus is again seen within intrahepatic right portal venous branch. This appears diminish ed from previous. 5. An indeterminant 1.6 cm hepatic lesion is unchanged. 6. Additional findings as above. Electronically signed by: Santos Garcia M.D. 09/03/2018 8:26 PM
--- NOTE | 2018-09-03 21:39 | Emergency Department Note ---
Entered by Lexi Irene acting as a scribe for History of Present Illness General Chief complaint: GI Assessment Stated complaint: VOMITING S/P COLONOSCOPY Time Seen by Provider: 09/03/18 18:53 Source: patient History of Present Illness Maximum Pain Intensity: 7 HPI Narrative: The patient is a 28 year old white female w/ PMHx seizure disorder, chronic back pain, myoclonus, dystonia, anxiety, history of medical marijuana use, diarrhea, benign neoplasm of pituitary gland, and portal vein thrombosis on Coumadin who presents to the ED w/ CC of waxing and waning abdominal pain beginning this morning. 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 side; no leg pain; left leg distonia; cant keep still; dilantin and coumadin interaction Home Medications Home Medications Medication Instructions Recorded Confirmed Type amantadine HCl 100 mg PO BID 08/09/18 09/03/18 History gabapentin 300 mg PO TID 08/09/18 09/03/18 History lorazepam 1 mg PO TID 08/09/18 09/03/18 History phenytoin sodium extended 200 mg PO QAM 08/09/18 09/03/18 History [Dilantin Extended] venlafaxine [Effexor XR] 150 mg PO QAM 08/09/18 09/03/18 History pantoprazole 40 mg PO QAM 30 Days #30 tab 08/16/18 09/03/18 Rx albuterol sulfate [Ventolin HFA] 2 puff INHALATION Q4H PRN 09/03/18 09/03/18 History carbamazepine 150 mg PO BID 09/03/18 09/03/18 History carbamazepine [Carbatrol] 600 mg PO BID 09/03/18 09/03/18 History dicyclomine 10 mg PO QID PRN 09/03/18 09/03/18 History docusate sodium 100 mg PO BID PRN 09/03/18 09/03/18 History enoxaparin 100 mg SUBCUT DIRECTED 09/03/18 09/03/18 History ondansetron HCl [Zofran] 4 mg PO Q8H PRN 09/03/18 09/03/18 History phenytoin sodium extended 300 mg PO QPM 09/03/18 09/03/18 History warfarin [Coumadin] 2 mg PO DIRECTED 09/03/18 09/03/18 History Allergies Allergy/AdvReac Type Severity Reaction Status Date / Time prednisone AdvReac Intermediate DILANTIN Verified 09/03/18 20:28 TOXICITY sulfamethoxazole AdvReac Intermediate BURNING,ALIX Verified 09/03/18 20:28 RRHEA trimethoprim AdvReac Intermediate BURNING,ALIX Verified 09/03/18 20:28 RRHEA Bactrim AdvReac Unknown BURNING,ALIX Verified 12/18/17 12:59 RRHEA Past Med/Surg History Social History Preferred Language: Persian Beliefs That Will Affect Care: None Current Living Situation: Spouse Feels Safe at Home: Yes Smoking Status: Former smoker Hx Alcohol Use: No Hx Substance Use: No Physical Exam Vital Signs: Vital Signs - 24 hr 09/03/18 18:48 09/03/18 20:50 09/03/18 20:58 Temperature 98.1 F Temperature Source Oral Sepsis Recent Feve r Within 48 Hours No Sepsis New/Unexpla ined Change in Men vasiliy Status No Sepsis Action Take n by Nursing No Action Required Pulse Rate 89 89 Pulse Rate [Apical ] 90 Pulse Rhythm Regular Pulse Rhythm [Apic al] Regular Pulse Strength [Ap ical] Normal Respiratory Rate 18 17 17 Respiratory Effort / Characteristics Non-Labored Non-Labored Sponta neous Respiratory Depth Normal Normal Respiratory Patter n Regular Regular Blood Pressure 110/74 Blood Pressure [Le ft Arm] 147/82 H Blood Pressure Nohemi n 86 Blood Pressure Nohemi n [Left Arm] 103 Blood Pressure Pos ition Sitting Pulse Oximetry 95 98 98 Oxygen Delivery Me thod Room Air Room Air Room Air Course Administered Medications Ioversol (Optiray 320 100ml) 89 ml IV ONCE PRN PRN Reason: Interaction Checking Stop: 09/07/18 20:00 Last Admin: 09/03/18 20:02 Dose: 89 ml Documented by: [id number] Discontinued Medications Hydromorphone HCl (Dilaudid) 1 mg IV NOW STA Stop: 09/03/18 20:20 Last Admin: 09/03/18 20:52 Dose: 1 mg Documented by: [id number] Sodium Chloride (Nss 1000ml) 1,000 mls @ 999 mls/hr IV .Q1H1M DWAYNE Stop: 09/03/18 20:15 Last Infusion: 09/03/18 20:32 Dose: 0 mls/hr Documented by: [id number] Admin: 09/03/18 19:23 Dose: 999 mls/hr Documented by: [id number] Metoclopramide HCl (Reglan) 10 mg IV NOW STA Stop: 09/03/18 20:20 Last Admin: 09/03/18 20:52 Dose: 10 mg Documented by: [id number] Morphine Sulfate (Morphine Sulfate) 4 mg IV NOW STA Stop: 09/03/18 19:06 Last Admin: 09/03/18 19:23 Dose: 4 mg Documented by: [id number] Ondansetron HCl (Zofran) 4 mg IV NOW STA Stop: 09/03/18 19:06 Last Admin: 09/03/18 19:23 Dose: 4 mg Documented by: [id number] Medical Decision Making Laboratory Data Result diagrams: 09/03/18 19:05 09/03/18 19:05 Lab Results 09/03/18 09/03/18 09/03/18 Range/Units 19:05 19:05 19:05 WBC 6.77 (4.8-10.8) K/uL RBC 5.08 (4.2-5.4) M/uL Hgb 15.7 (12.0-16.0) g/dL POC Hgb (12.0-16.0) g/dl Hct 45.8 (37-47) % POC Hct (37-47) % MCV 90.2 (80-100) fL MCH 30.9 (25-34) pg MCHC 34.3 (32-36) g/dL RDW Std Deviation 43.7 (36.4-46.3) fL RDW Coeff of Erika 13.2 (11.5-14.5) % Plt Count 265 (130-400) K/uL MPV 8.5 (7.4-10.4) fL Immature Gran % (Auto) 0.1 % Neut % (Auto) 72.8 % Lymph % (Auto) 17.7 % [place] % (Auto) 9.0 % Eos % (Auto) 0.3 % Baso % (Auto) 0.1 % Immature Gran # (Auto) 0.01 (0.00-0.02) K/uL Neut # (Auto) 4.92 (1.4-6.5) K/uL Lymph # (Auto) 1.20 (1.2-3.4) K/uL [place] # (Auto) 0.61 H (0.11-0.59) K/uL Eos # (Auto) 0.02 (0-0.5) K/uL Baso # (Auto) 0.01 (0-0.2) K/uL PT 12.1 H (9.0-12.0) Seconds INR 1.2 H (0.9-1.1) POC Sodium (135-144) mEq/L Sodium 137 (136-145) mmol/L POC Potassium (3.3-5.0) mEq/L Potassium 3.5 (3.5-5.1) mmol/L POC Chloride (101-112) mEq/L Chloride 103 (98-107) mmol/L Carbon Dioxide 26 (21-32) mmol/L POC Total CO2 (24-31) mEq/l Anion Gap 8.0 (3-11) POC Anion Gap (16-25) mmol/L POC BUN (7-18) mg/dl BUN 5 L (7-18) mg/dl Creatinine 0.78 (0.6-1.2) mg/dl POC Creatinine (0.6-1.3) mg/dl Est Cr Clr Drug Dosing 119.2 ml/min Est GFR ( Amer) 118.2 Est GFR (Non-Af Amer) 102.0 BUN/Creatinine Ratio 6.5 L (10-20) Glucose 86 (70-99) mg/dl POC Glucose (other) (70-99) mg/dl Lactate (0.4-2.0) mmol/L Calcium 8.8 (8.5-10.1) mg/dl POC Ioniz Calcium Jose (1.12-1.32) mmol/l Magnesium 1.9 (1.8-2.4) mg/dl Total Bilirubin 0.4 (0.2-1) mg/dl AST 24 (15-37) U/L ALT 28 (12-78) U/L Alkaline Phosphatase 178 H (45-117) U/L Total Protein 8.6 H (6.4-8.2) gm/dl Albumin 4.2 (3.4-5.0) gm/dl Globulin 4.4 H (2.5-4.0) gm/dl Albumin/Globulin Ratio 1.0 (0.9-2) Lipase 54 L (73-393) U/L 09/03/18 09/03/18 Range/Units 19:05 19:14 WBC (4.8-10.8) K/uL RBC (4.2-5.4) M/uL Hgb (12.0-16.0) g/dL POC Hgb 16.7 H (12.0-16.0) g/dl Hct (37-47) % POC Hct 49 H (37-47) % MCV (80-100) fL MCH (25-34) pg MCHC (32-36) g/dL RDW Std Deviation (36.4-46.3) fL RDW Coeff of Erika (11.5-14.5) % Plt Count (130-400) K/uL MPV (7.4-10.4) fL Immature Gran % (Auto) % Neut % (Auto) % Lymph % (Auto) % Oxford % (Auto) % Eos % (Auto) % Baso % (Auto) % Immature Gran # (Auto) (0.00-0.02) K/uL Neut # (Auto) (1.4-6.5) K/uL Lymph # (Auto) (1.2-3.4) K/uL Oxford # (Auto) (0.11-0.59) K/uL Eos # (Auto) (0-0.5) K/uL Baso # (Auto) (0-0.2) K/uL PT (9.0-12.0) Seconds INR (0.9-1.1) POC Sodium 139 (135-144) mEq/L Sodium (136-145) mmol/L POC Potassium 3.4 (3.3-5.0) mEq/L Potassium (3.5-5.1) mmol/L POC Chloride 100 L (101-112) mEq/L Chloride (98-107) mmol/L Carbon Dioxide (21-32) mmol/L POC Total CO2 24 (24-31) mEq/l Anion Gap (3-11) POC Anion Gap 20.0 (16-25) mmol/L POC BUN 3 L (7-18) mg/dl BUN (7-18) mg/dl Creatinine (0.6-1.2) mg/dl POC Creatinine 0.6 (0.6-1.3) mg/dl Est Cr Clr Drug Dosing ml/min Est GFR ( Amer) Est GFR (Non-Af Amer) BUN/Creatinine Ratio (10-20) Glucose (70-99) mg/dl POC Glucose (other) 89 (70-99) mg/dl Lactate 1.1 (0.4-2.0) mmol/L Calcium (8.5-10.1) mg/dl POC Ioniz Calcium Jose 1.13 (1.12-1.32) mmol/l Magnesium (1.8-2.4) mg/dl Total Bilirubin (0.2-1) mg/dl AST (15-37) U/L ALT (12-78) U/L Alkaline Phosphatase (45-117) U/L Total Protein (6.4-8.2) gm/dl Albumin (3.4-5.0) gm/dl Globulin (2.5-4.0) gm/dl Albumin/Globulin Ratio (0.9-2) Lipase (73-393) U/L Discharge Plan Visit Data Chief Complaint: GI Assessment Stated Complaint: VOMITING S/P COLONOSCOPY ED Provider: John Baez Prescriptions Prescriptions: No Action venlafaxine [Effexor XR] 150 mg Capsule,Extended Release 24hr 150 mg PO QAM RF: 0 gabapentin 100 mg Capsule 300 mg PO TID RF: 0 lorazepam 1 mg Tablet 1 mg PO TID RF: 0 phenytoin sodium extended [Dilantin Extended] 100 mg Capsule 200 mg PO QAM RF: 0 amantadine HCl 100 mg Tablet 100 mg PO BID RF: 0 pantoprazole 40 mg Tablet,Delayed Release (Dr/Ec) 40 mg PO QAM 30 Days Qty: 30 RF: 1 phenytoin sodium extended 100 mg Capsule 300 mg PO QPM RF: 0 carbamazepine 100 mg Tablet,Chewable 150 mg PO BID RF: 0 carbamazepine [Carbatrol] 300 mg Capsule, Er Multiphase 12 Hr 600 mg PO BID RF: 0 albuterol sulfate [Ventolin HFA] 90 mcg/actuation Hfa Aerosol Inhaler 2 puff INHALATION Q4H PRN (Reason: Wheezing) RF: 0 warfarin [Coumadin] 2 mg tablet 2 mg PO DIRECTED RF: 0 ondansetron HCl [Zofran] 4 mg Tablet 4 mg PO Q8H PRN (Reason: Nausea) RF: 0 docusate sodium 100 mg capsule 100 mg PO BID PRN (Reason: Constipation) RF: 0 dicyclomine 10 mg capsule 10 mg PO QID PRN (Reason: Abdominal Pain/Cramping) RF: 0 enoxaparin 100 mg/mL Syringe 100 mg SUBCUT DIRECTED RF: 0
[2018-09-03] MEDS ORDERED: PROMETHAZINE HCL 12.5 MG in SODIUM CHLORIDE 0.9% 50 ML IV STA (21:53)
[2018-09-03] MEDS ORDERED: LORazepam 1 MG/2 ML VIAL IV STA (21:53)
[2018-09-03] MEDS ORDERED: PROMETHAZINE 12.5 MG/50.5 ML NSS IV ONE (22:11)
[2018-09-03 22:17] LABS: Appearance Urine Clear (Clear); Bilirubin Urine Negative (Negative); Blood Urine 3+ (Negative); Color Urine Orange; Epithelial Cell Urine Auto >30 /lpf (0-5); Glucose Urine UA Negative (Negative); Ketones Urine 1+ (Negative); Leukocyte Esterase Urine Negative (Negative); Nitrite Urine Negative (Negative); RBC Urine Automated >30 /hpf (0-4); Specific Gravity Urine > 1.045 (1.000-1.030); Urobilinogen Urine Negative (Negative)
[2018-09-03 22:30] LABS: Protein Urine Negative (Negative)
[2018-09-03 22:32] LABS: Bacteria Urine Automated 1+ (Negative)
[2018-09-03] MEDS ORDERED: SODIUM CHLORIDE 0.9% 1000ML 1,000 ML IV ONE (23:10)
[2018-09-04] MEDS ORDERED: SODIUM CHLORIDE 0.9% 1000ML 1,000 ML IV SCH ×2 (00:45→04:11)
--- NOTE | 2018-09-04 01:31 | Emergency Department Note ---
Entered by Lexi Irene acting as a scribe for John Baez MD History of Present Illness General Chief complaint: GI Assessment Stated complaint: VOMITING S/P COLONOSCOPY Time Seen by Provider: 09/03/18 18:53 Source: patient History of Present Illness Onset (ago): hour(s) (this morning) Location: abdomen (upper) Pain Consistency: + other (waxing and waning) Maximum Pain Intensity: 7 Relieved By: + none Exacerbated By: + eating and + other (drinking) Associated symptoms: + nausea/vomiting and + other (negative urinary symptoms; negative leg pain); no fever/chills Treatments prior to arrival: other (Tylenol; Zofran) The patient is a 28 year old white female w/ PMHx seizure disorder, chronic back pain, myoclonus, dystonia, anxiety, history of medical marijuana use, diarrhea, benign neoplasm of pituitary gland, and portal vein thrombosis on Coumadin who presents to the ED w/ CC of waxing and waning upper abdominal pain beginning this morning. The patient states that her pain is exacerbated by eating and drinking, and states that nothing relieves her pain. The patient states that she had a colonoscopy yesterday and was told to return to her normal diet afterwards. The patient states that she has vomited several times today. She states that she vomited up all of her medication, including her epilepsy medication, as well as Tylenol and Zofran that she took prior to arrival for her symptoms. The patient denies fevers, chills, urinary symptoms, and leg pain. The patient states that she currently has her menstrual period. The patient had a colonoscopy performed on 09/02/[address] Lovett. The colonoscopy shows normal terminal ileum and normal colonic mucosa. Several biopsies were taken. Internal hemorrhoids noted. Home Medications Home Medications Medication Instructions Recorded Confirmed Type amantadine HCl 100 mg PO BID 08/09/18 09/03/18 History gabapentin 300 mg PO TID 08/09/18 09/03/18 History lorazepam 1 mg PO TID 08/09/18 09/03/18 History phenytoin sodium extended 200 mg PO QAM 08/09/18 09/03/18 History [Dilantin Extended] venlafaxine [Effexor XR] 150 mg PO QAM 08/09/18 09/03/18 History pantoprazole 40 mg PO QAM 30 Days #30 tab 08/16/18 09/03/18 Rx albuterol sulfate [Ventolin HFA] 2 puff INHALATION Q4H PRN 09/03/18 09/03/18 History carbamazepine 150 mg PO BID 09/03/18 09/03/18 History carbamazepine [Carbatrol] 600 mg PO BID 09/03/18 09/03/18 History dicyclomine 10 mg PO QID PRN 09/03/18 09/03/18 History docusate sodium 100 mg PO BID PRN 09/03/18 09/03/18 History enoxaparin 100 mg SUBCUT DIRECTED 09/03/18 09/03/18 History ondansetron HCl [Zofran] 4 mg PO Q8H PRN 09/03/18 09/03/18 History phenytoin sodium extended 300 mg PO QPM 09/03/18 09/03/18 History warfarin [Coumadin] 2 mg PO DIRECTED 09/03/18 09/03/18 History Allergies Allergy/AdvReac Type Severity Reaction Status Date / Time prednisone AdvReac Intermediate DILANTIN Verified 09/03/18 20:28 TOXICITY sulfamethoxazole AdvReac Intermediate BURNING,ALIX Verified 09/03/18 20:28 RRHEA trimethoprim AdvReac Intermediate BURNING,ALIX Verified 09/03/18 20:28 RRHEA Bactrim AdvReac Unknown BURNING,ALIX Verified 12/18/17 12:59 RRHEA Past Med/Surg History Medical History Seizure disorder (Chronic) Asthma Social History Preferred Language: Bulgarian Beliefs That Will Affect Care: None Current Living Situation: Spouse Feels Safe at Home: Yes Smoking Status: Former smoker Hx Alcohol Use: No Hx Substance Use: No Review of Systems See HPI for pertinent positives & negatives. and A total of 10 systems reviewed and were otherwise negative Physical Exam Vital Signs Vital Signs - 24 hr 09/03/18 18:48 09/03/18 20:50 09/03/18 20:58 Temperature 36.7 C Temperature Source Oral Sepsis Recent Fever Within 48 Hours No Sepsis New/Unexplained Change in Mental Status No Sepsis Action Taken by Nursing No Action Required Pulse Rate 89 85 89 Pulse Rate [Apical] 90 Pulse Rate from SpO2 Sensor 85 Pulse Rhythm Regular Pulse Rhythm [Apical] Regular Pulse Strength [Apical] Normal Respiratory Rate 18 14 17 Respiratory Effort / Characteristics Non-Labored Non-Labored Spontaneous Respiratory Depth Normal Normal Respiratory Pattern Regular Regular Blood Pressure 110/74 147/82 H Blood Pressure [Left Arm] 147/82 H Blood Pressure Mean 86 103 Blood Pressure Mean [Left Arm] 103 Blood Pressure Position Sitting Pulse Oximetry 95 97 98 Oxygen Delivery Method Room Air Room Air Room Air 09/03/18 22:00 09/03/18 22:30 09/03/18 23:00 Temperature Temperature Source Sepsis Recent Fever Within 48 Hours Sepsis New/Unexplained Change in Mental Status Sepsis Action Taken by Nursing Pulse Rate 85 82 88 Pulse Rate [Apical] Pulse Rate from SpO2 Sensor 85 81 88 Pulse Rhythm Pulse Rhythm [Apical] Pulse Strength [Apical] Respiratory Rate 17 9 L 17 Respiratory Effort / Characteristics Respiratory Depth Respiratory Pattern Blood Pressure 132/79 117/84 129/87 Blood Pressure [Left Arm] Blood Pressure Mean 96 95 101 Blood Pressure Mean [Left Arm] Blood Pressure Position Pulse Oximetry 94 95 98 Oxygen Delivery Method Room Air Room Air 09/03/18 23:30 09/04/18 00:00 Temperature Temperature Source Sepsis Recent Fever Within 48 Hours Sepsis New/Unexplained Change in Mental Status Sepsis Action Taken by Nursing Pulse Rate 73 90 Pulse Rate [Apical] Pulse Rate from SpO2 Sensor 73 83 Pulse Rhythm Pulse Rhythm [Apical] Pulse Strength [Apical] Respiratory Rate 12 13 Respiratory Effort / Characteristics Respiratory Depth Respiratory Pattern Blood Pressure 114/86 119/88 Blood Pressure [Left Arm] Blood Pressure Mean 95 98 Blood Pressure Mean [Left Arm] Blood Pressure Position Pulse Oximetry 99 98 Oxygen Delivery Method GENERAL: Tearful. Mildly uncomfortable-appearing. EYE EXAM: Normal conjunctiva. PERRL, no anisocoria and EOM's grossly intact w/o pain. OROPHARYNX: Moist MM. NECK: Supple, no nuchal rigidity, no adenopathy, non-tender. No signs of meningismus. LUNGS: Clear to auscultation. Normal chest wall mechanics. HEART: NSR, no MRG. ABDOMEN: Abdomen soft, normo-active bowel sounds, no masses, no rebound or guarding. Upper abdominal discomfort, worse in epigastrium. BACK: No CVA TTP. SKIN: No rashes and no bruising. UPPER EXTREMITIES: Upper extremities are grossly normal. LOWER EXTREMITIES: No pitting edema. No calf pain. NEURO EXAM: A and O x3. GCS 15. Moves all 4 extremities on command w/o issue. Course 1858: Past medical records reviewed. The patient was evaluated in room A12A, and a complete history and physical examination were performed. 2004: I checked on and updated the patient. She states that she does not feel better. 2344: I checked on the patient who states that she was able to take her me dication. 0027: I checked on the patient and updated her. 0035: I discussed the case with Dr. [facility] who will further evaluate the patient. Consultations Consultation #1: I discussed the case with Dr. [facility] who will further evaluate the patient. Time: 00:35 Administered Medications Ioversol (Optiray 320 100ml) 89 ml IV ONCE PRN PRN Reason: Interaction Checking Stop: 09/07/18 20:00 Last Admin: 09/03/18 20:02 Dose: 89 ml Documented by: [id number] Discontinued Medications Hydromorphone HCl (Dilaudid) 1 mg IV NOW STA Stop: 09/03/18 20:20 Last Admin: 09/03/18 20:52 Dose: 1 mg Documented by: [id number] Sodium Chloride (Nss 1000ml) 1,000 mls @ 999 mls/hr IV .Q1H1M DWAYNE Stop: 09/03/18 20:15 Last Infusion: 09/03/18 20:32 Dose: 0 mls/hr Documented by: [id number] Admin: 09/03/18 19:23 Dose: 999 mls/hr Documented by: [id number] Promethazine HCl 12.5 mg/ (Sodium Chloride) 50.5 mls @ 202 mls/hr IV NOW STA Stop: 09/03/18 22:07 Last Infusion: 09/03/18 22:38 Dose: 0 mls/hr Documented by: [id number] Admin: 09/03/18 22:22 Dose: 202 mls/hr Documented by: [id number] Lorazepam (Ativan) 1 mg in 2 mls @ 2 mls/min IV NOW STA Stop: 09/03/18 21:54 Last Admin: 09/03/18 22:22 Dose: 2 mls/min Documented by: [id number] Sodium Chloride (Nss 1000ml) 1,000 mls @ 999 mls/hr IV .Q1H1M ONE Stop: 09/04/18 00:10 Last Infusion: 09/04/18 00:59 Dose: 0 mls/hr Documented by: [id number] Admin: 09/03/18 23:43 Dose: 999 mls/hr Documented by: [id number] Metoclopramide HCl (Reglan) 10 mg IV NOW STA Stop: 09/03/18 20:20 Last Admin: 09/03/18 20:52 Dose: 10 mg Documented by: [id number] Morphine Sulfate (Morphine Sulfate) 4 mg IV NOW STA Stop: 09/03/18 19:06 Last Admin: 09/03/18 19:23 Dose: 4 mg Documented by: [id number] Ondansetron HCl (Zofran) 4 mg IV NOW STA Stop: 09/03/18 19:06 Last Admin: 09/03/18 19:23 Dose: 4 mg Documented by: [id number] Promethazine HCl (Phenergan) Confirm Administered Dose 12.5 mg IV .STK-MED ONE Stop: 09/03/18 22:12 Last Admin: 09/03/18 22:22 Dose: Not Given Documented by: [id number] Medical Decision Making Medical Records Attestation: I reviewed the patient's medical records. Home Medications Current Medication List: was personally reviewed by me Laboratory Data Attestation: I reviewed the patient's lab results. Result diagrams: 09/03/18 19:05 09/03/18 19:05 Lab Results 09/03/18 09/03/18 09/03/18 Range/Units 19:05 19:05 19:05 WBC 6.77 (4.8-10.8) K/uL RBC 5.08 (4.2-5.4) M/uL Hgb 15.7 (12.0-16.0) g/dL POC Hgb (12.0-16.0) g/dl Hct 45.8 (37-47) % POC Hct (37-47) % MCV 90.2 (80-100) fL MCH 30.9 (25-34) pg MCHC 34.3 (32-36) g/dL RDW Std Deviation 43.7 (36.4-46.3) fL RDW Coeff of Erika 13.2 (11.5-14.5) % Plt Count 265 (130-400) K/uL MPV 8.5 (7.4-10.4) fL Immature Gran % (Auto) 0.1 % Neut % (Auto) 72.8 % Lymph % (Auto) 17.7 % [place] % (Auto) 9.0 % Eos % (Auto) 0.3 % Baso % (Auto) 0.1 % Immature Gran # (Auto) 0.01 (0.00-0.02) K/uL Neut # (Auto) 4.92 (1.4-6.5) K/uL Lymph # (Auto) 1.20 (1.2-3.4) K/uL [place] # (Auto) 0.61 H (0.11-0.59) K/uL Eos # (Auto) 0.02 (0-0.5) K/uL Baso # (Auto) 0.01 (0-0.2) K/uL PT 12.1 H (9.0-12.0) Seconds INR 1.2 H (0.9-1.1) POC Sodium (135-144) mEq/L Sodium 137 (136-145) mmol/L POC Potassium (3.3-5.0) mEq/L Potassium 3.5 (3.5-5.1) mmol/L POC Chloride (101-112) mEq/L Chloride 103 (98-107) mmol/L Carbon Dioxide 26 (21-32) mmol/L POC Total CO2 (24-31) mEq/l Anion Gap 8.0 (3-11) POC Anion Gap (16-25) mmol/L POC BUN (7-18) mg/dl BUN 5 L (7-18) mg/dl Creatinine 0.78 (0.6-1.2) mg/dl POC Creatinine (0.6-1.3) mg/dl Est Cr Clr Drug Dosing 119.2 ml/min Est GFR ( Amer) 118.2 Est GFR (Non-Af Amer) 102.0 BUN/Creatinine Ratio 6.5 L (10-20) Glucose 86 (70-99) mg/dl POC Glucose (other) (70-99) mg/dl Lactate (0.4-2.0) mmol/L Calcium 8.8 (8.5-10.1) mg/dl POC Ioniz Calcium Jose (1.12-1.32) mmol/l Magnesium 1.9 (1.8-2.4) mg/dl Total Bilirubin 0.4 (0.2-1) mg/dl AST 24 (15-37) U/L ALT 28 (12-78) U/L Alkaline Phosphatase 178 H (45-117) U/L Total Protein 8.6 H (6.4-8.2) gm/dl Albumin 4.2 (3.4-5.0) gm/dl Globulin 4.4 H (2.5-4.0) gm/dl Albumin/Globulin Ratio 1.0 (0.9-2) Lipase 54 L (73-393) U/L Urine Color Urine Appearance (Clear) Urine pH (4.5-7.5) Ur Specific [place] (1.000-1.030) Urine Protein (Negative) Urine Glucose (UA) (Negative) Urine Ketones (Negative) Urine Blood (Negative) Urine Nitrite (Negative) Urine Bilirubin (Negative) Urine Urobilinogen (Negative) Ur Leukocyte Esterase (Negative) Urine WBC (Auto) (0-5) /hpf Urine RBC (Auto) (0-4) /hpf U Hyaline Cast (Auto) (0-5) /lpf U Epithel Cells (Auto) (0-5) /lpf Urine Bacteria (Auto) (Negative) Urine Yeast 09/03/18 09/03/18 09/03/18 Range/Units 19:05 19:14 21:50 WBC (4.8-10.8) K/uL RBC (4.2-5.4) M/uL Hgb (12.0-16.0) g/dL POC Hgb 16.7 H (12.0-16.0) g/dl Hct (37-47) % POC Hct 49 H (37-47) % MCV (80-100) fL MCH (25-34) pg MCHC (32-36) g/dL RDW Std Deviation (36.4-46.3) fL RDW Coeff of Erika (11.5-14.5) % Plt Count (130-400) K/uL MPV (7.4-10.4) fL Immature Gran % (Auto) % Neut % (Auto) % Lymph % (Auto) % [place] % (Auto) % Eos % (Auto) % Baso % (Auto) % Immature Gran # (Auto) (0.00-0.02) K/uL Neut # (Auto) (1.4-6.5) K/uL Lymph # (Auto) (1.2-3.4) K/uL [place] # (Auto) (0.11-0.59) K/uL Eos # (Auto) (0-0.5) K/uL Baso # (Auto) (0-0.2) K/uL PT (9.0-12.0) Seconds INR (0.9-1.1) POC Sodium 139 (135-144) mEq/L Sodium (136-145) mmol/L POC Potassium 3.4 (3.3-5.0) mEq/L Potassium (3.5-5.1) mmol/L POC Chloride 100 L (101-112) mEq/L Chloride (98-107) mmol/L Carbon Dioxide (21-32) mmol/L POC Total CO2 24 (24-31) mEq/l Anion Gap (3-11) POC Anion Gap 20.0 (16-25) mmol/L POC BUN 3 L (7-18) mg/dl BUN (7-18) mg/dl Creatinine (0.6-1.2) mg/dl POC Creatinine 0.6 (0.6-1.3) mg/dl Est Cr Clr Drug Dosing ml/min Est GFR ( Amer) Est GFR (Non-Af Amer) BUN/Creatinine Ratio (10-20) Glucose (70-99) mg/dl POC Glucose (other) 89 (70-99) mg/dl Lactate 1.1 (0.4-2.0) mmol/L Calcium (8.5-10.1) mg/dl POC Ioniz Calcium Jose 1.13 (1.12-1.32) mmol/l Magnesium (1.8-2.4) mg/dl Total Bilirubin (0.2-1) mg/dl AST (15-37) U/L ALT (12-78) U/L Alkaline Phosphatase (45-117) U/L Total Protein (6.4-8.2) gm/dl Albumin (3.4-5.0) gm/dl Globulin (2.5-4.0) gm/dl Albumin/Globulin Ratio (0.9-2) Lipase (73-393) U/L Urine Color [place] Urine Appearance Clear (Clear) Urine pH 8.0 H (4.5-7.5) Ur Specific [place] > 1.045 H (1.000-1.030) Urine Protein Negative (Negative) Urine Glucose (UA) Negative (Negative) Urine Ketones 1+ H (Negative) Urine Blood 3+ H (Negative) Urine Nitrite Negative (Negative) Urine Bilirubin Negative (Negative) Urine Urobilinogen Negative (Negative) Ur Leukocyte Esterase Negative (Negative) Urine WBC (Auto) 1-5 (0-5) /hpf Urine RBC (Auto) >30 H (0-4) /hpf U Hyaline Cast (Auto) 1-5 (0-5) /lpf U Epithel Cells (Auto) >30 H (0-5) /lpf Urine Bacteria (Auto) 1+ H (Negative) Urine Yeast Not Reportable Imaging Data Radiologist's Impression: Radiology results as stated below per my review and the radiologist's interpretation: CT SCAN OF THE ABDOMEN AND PELVIS WITH IV CONTRAST CLINICAL HISTORY: Generalized abdominal pain. COMPARISON STUDY: Abdominal CT dated 08/15/2018. TECHNIQUE: Following the IV administration of 89 cc of Optiray 320, CT scan of the abdomen and pelvis is performed from the lung bases to the proximal femora. Images are reviewed in the axial, sagittal, and coronal planes. IV contrast was administered without complication. A dose lowering technique was utilized adhering to the principles of ALARA. CT DOSE: 644.79 mGy.cm FINDINGS: Lung bases: The heart is normal in size and without pericardial effusion. The lung bases are clear. Liver: The contrast-enhanced liver is normal in size, contour, and attenuation. There is no intrahepatic biliary ductal dilatation. There is an indeterminant 1.6 cm hypodense lesion in the inferior right lobe of liver seen on image #180. The hepatic veins and main portal veins are patent. A small amount of thrombus is again seen within the intrahepatic portal branches on the right. Gallbladder: Unremarkable. Spleen: Normal in size and attenuation. Pancreas: Unremarkable. Adrenal glands: Unremarkable. Kidneys: The contrast enhanced kidneys are normal in size and without hyd ronephrosis. The kidneys enhance symmetrically. A subcentimeter cortical hypodensity in the left lower pole likely represents a cyst but is too small for definitive characterization. Abdominal vasculature: The abdominal aorta is normal in course and caliber. Bowel: There is no bowel obstruction. The appendix is well-visualized and normal. Peritoneum: There is no intraperitoneal free air or abdominal ascites. Small foci of induration within the ventral abdominal pannus are likely related to s ubcutaneous injections. Lymphadenopathy: None. Pelvic viscera: The bladder is decompressed and not well evaluated. The uterus and adnexa are normal as visualized. There are numerous ovarian follicles. A small cyst in the left ovary measures up to 3.7 cm. Trace free fluid is noted in the cul-de-sac. Skeletal structures: No lytic or blastic lesions are seen. IMPRESSION: 1. There are no acute infectious or inflammatory findings in the abdomen or pelvis. 2. There is a 3.7 cm left ovarian cyst. 3. Trace nonspecific free fluid in cul-de-sac is likely within physiologic limits. 4. Trace thrombus is again seen within intrahepatic right portal venous branch. This appears diminished from previous. 5. An indeterminant 1.6 cm hepatic lesion is unchanged. 6. Additional findings as above. Electronically signed by: Santos Garcia M.D. 09/03/2018 8:26 PM Blood Pressure Blood Pressure Findings: Normal blood pressure MDM Narrative The patient is a 28 year old white female w/ PMHx seizure disorder, chronic back pain, myoclonus, dystonia, anxiety, history of medical marijuana use, diarrhea, benign neoplasm of pituitary gland, and portal vein thrombosis on Coumadin who presents to the ED w/ CC of waxing and waning abdominal pain beginning this morning. Differential diagnosis: Etiologies such as biliary colic, cholecystitis, hepatitis, perihepatitis, pancreatitis, cardiac disease, pancreatitis, gastritis, peptic ulcer disease, appendicitis, ovarian cyst, ovarian torsion, ectopic , pelvic inflammatory disease, cystitis, diverticulitis, mesenteric ischemia, inflammatory bowel disease, ileus, bowel obstruction, aortic pathology, shingles, as well as others were considered. Patient was seen and evaluated the bedside. The patient was complaining some persistent abdominal discomfort. The patient does have a complex medical history and recently did have a colonoscopy completed yesterday which showed she had fairly normal exam with normal distal terminal ileum status post colonoscopy with only internal hemorrhoids noted. Several biopsies were obtained. The patient did have blood work completed was given medications for symptom control. The patient blood work is fairly unremarkable. Lactate is not elevated. Given the symptoms and associated hepatic vein thrombosis do not believe that she is suffering from ischemia as the patient has normal lactate normal white count. She did have a CT of the abdomen pelvis completed. The patient showed chronic findings in her hepatic thrombosis was improved. The patient's blood work is fairly unremarkable with an unchanged white count. I did check a lactate. Given the normal white count and normal lactate I believe abdominal intestinal ischemia to be less likely. The patient's INR is somewhat subtherapeutic at 1.2 although the patient did state that she was transitioning from Lovenox to the Coumadin. The patient's other blood work shows relatively normal LFTs and lipase. Normal bilirubin. Urinalysis does show some blood and RBCs with the patient does relate that she is on her menstrual period. Patient was subsequently trialed multiple times with by mouth after getting antiemetics and pain control with the patient was unable to tolerate her by mouth medications. I did discuss the case with the on-call hospitalist who agreed to further evaluate treat the patient. The patient was admitted to the medicine service. Impression & Plan Nausea and vomiting, Abdominal pain Discharge Plan Visit Data Chief Complaint: GI Assessment Stated Complaint: VOMITING S/P COLONOSCOPY ED Provider: John Baez Discharge Problem: Nausea and vomiting, Abdominal pain Patient Disposition: Being Evaluated by Hospitalist Forms Stand Alone Forms: My [facility] Prescriptions Prescriptions: No Action venlafaxine [Effexor XR] 150 mg Capsule,Extended Release 24hr 150 mg PO QAM RF: 0 gabapentin 100 mg Capsule 300 mg PO TID RF: 0 lorazepam 1 mg Tablet 1 mg PO TID RF: 0 phenytoin sodium extended [Dilantin Extended] 100 mg Capsule 200 mg PO QAM RF: 0 amantadine HCl 100 mg Tablet 100 mg PO BID RF: 0 pantoprazole 40 mg Tablet,Delayed Release (Dr/Ec) 40 mg PO QAM 30 Days Qty: 30 RF: 1 phenytoin sodium extended 100 mg Capsule 300 mg PO QPM RF: 0 carbamazepine 100 mg Tablet,Chewable 150 mg PO BID RF: 0 carbamazepine [Carbatrol] 300 mg Capsule, Er Multiphase 12 Hr 600 mg PO BID RF: 0 albuterol sulfate [Ventolin HFA] 90 mcg/actuation Hfa Aerosol Inhaler 2 puff INHALATION Q4H PRN (Reason: Wheezing) RF: 0 warfarin [Coumadin] 2 mg tablet 2 mg PO DIRECTED RF: 0 ondansetron HCl [Zofran] 4 mg Tablet 4 mg PO Q8H PRN (Reason: Nausea) RF: 0 docusate sodium 100 mg capsule 100 mg PO BID PRN (Reason: Constipation) RF: 0 dicyclomine 10 mg capsule 10 mg PO QID PRN (Reason: Abdominal Pain/Cramping) RF: 0 enoxaparin 100 mg/mL Syringe 100 mg SUBCUT DIRECTED RF: 0 Referrals Referrals: Arabella Noland DO [Primary Care Provider] - Discharge Problem: Nausea and vomiting Qualifiers: Vomiting type: unspecified Vomiting Intractability: intractable Qualified Code(s): R11.2 - Nausea with vomiting, unspecified Abdominal pain Qualifiers: Abdominal location: epigastric Qualified Code(s): R10.13 - Epigastric pain The scribe's documentation has been prepared under my direction and personally reviewed by me in its entirety. I confirm that the note above accurately reflects all work, treatment, procedures, and medical decision making performed by me.
--- NOTE | 2018-09-04 03:30 | History and Physical Report ---
DATE OF ADMISSION: 09/04/2018 CHIEF COMPLAINT: Severe abdominal pain and nausea. 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 Was recently in the hospital for severe abdominal pain and found to have portal vein thrombosis and colitis. She was started on anticoagulation for portal vein thrombosis and treated with antibiotics for colitis and discharged home . Was seen by GI and hem/onc last admission.. Patient followed up with GI and had colonoscopy done on 09/02/2018. Seems to be okay except for internal hemorrhoids. After coming home, she started back on diet and on morning she started to have nausea, vomiting, and abdominal pain. She vomited all day and came to the ER requiring several doses of antiemetics. Complains of pain in the lower chest and she thinks nothing is going down below the lower chest. Otherwise, resting comfortably. Complains of some headaches. She says on and off she gets some blurred visions, double visions, but right now she does not have any double vision. Complains of some shortness of breath with the pain. Has some cough. No fever, no chills. Did not moved her bowels since the colonoscopy. Normal bladder movements. ALLERGIES: BACTRIM AND PREDNISONE. PAST MEDICAL HISTORY: As mentioned above. PAST SURGICAL HISTORY: Colonoscopy, dental surgery, ligation of oviduct, treatment of incomplete . MEDICATIONS: The patient is on gabapentin 300 mg p.o. t.i.d., Lovenox bridge, Coumadin 2 mg daily, Bentyl 10 mg p.o. q.i.d. p.r.n., Colace 100 mg p.o. b.i.d. p.r.n., Zofran 4 mg p.o. every 8 hours p.r.n., Protonix 40 mg p.o. daily, Ativan 1 mg p.o. t.i.d., carbamazepine 600 mg b.i.d., carbamazepine 150 mg p.o. b.i.d., phenytoin ER 200 mg in a.m. and 300 mg in p.m., Ventolin 2 puffs every 4 hours p.r.n., amantadine 100 mg p.o. b.i.d., Effexor 150 mg p.o. daily. FAMILY HISTORY: Significant for father has hypertension, hyperlipidemia, heart disorder. Mother has depression, hyperlipidemia. Sister has colon cancer, ulcerative colitis. SOCIAL HISTORY: Former smoker, quit in 2009. Alcohol rarely. Marijuana, smokes medical marijuana. , lives with her and daughter. REVIEW OF SYSTEMS: As per HPI. Rest of review of systems negative. PHYSICAL EXAMINATION: GENERAL: The patient is of moderate build, not in acute distress. VITAL SIGNS: Temperature 36.7, pulse 78, respiratory rate 16, blood pressure 123/86, oxygen 98% room air. HEENT: No pallor, no icterus. Pupils equal, round, and reactive to light. NECK: No JVD, no neck masses, no carotid bruit. CARDIOVASCULAR: S1, S2 heard, regular rate and rhythm, no murmur, no gallop. RESPIRATORY SYSTEM: Normal AP diameter. No accessory muscle use. No wheezing, no crackles. ABDOMEN: Soft, bowel sounds present. Mildly increased abdominal discomfort. No guarding, no rigidity, no distention. CENTRAL NERVOUS SYSTEM: Cranial nerves II-XII grossly intact, nonfocal. EXTREMITIES: No edema, no erythema. LABORATORY DATA: WBC 9.6, hemoglobin 15.7, hematocrit 45.8, platelets 265. PT 12.1, INR 1.2. Sodium 137, potassium 3.5, chloride 103, bicarbonate 26, BUN 5, creatinine 0.7, serum glucose 86. Lactate 1.1, calcium 8.8, magnesium 1.9, total bilirubin 0.4, AST 24, ALT 28, alkaline phosphatase 178, lipase 54. Urinalysis positive for ketones. IMAGING DATA: CT of the abdomen and pelvis, no acute infectious or inflammatory findings seen in the abdomen or pelvis. A 3.7 cm left ovarian cyst. Trace thrombosis seen in the intrahepatic right portal venous branch, this appears diminished from previous. Indeterminate 1.6 hepatic lesion is unchanged. ASSESSMENT AND PLAN: This is a 28-year-old female who presents with severe abdominal pain and nausea. 1. Severe abdominal pain and nausea. The patient had similar episode in the recent admission and was found to have colitis and portal vein thrombosis. Had colonoscopy a couple of days ago and it was unremarkable except for internal hemorrhoids, awaiting for biopsies. After colonoscopy, after coming home, started a diet and developed abdominal pain. CT scan done in the ER shows unremarkable and portal vein thrombosis is getting better. We will keep her n.p.o., IV fluids, IV antiemetics, IV pain meds p.r.n. Consult GI for further recommendation. The pain seems to be nonspecific at this time. For liver lesion had MRI last admission and were benign , advised for repeat imaging in 3 months. 2. Portal vein thrombosis. Follow up with hematology/oncology. INR is 1.2 as Coumadin was held for colonoscopy. Currently on Lovenox bridge and restarted on Coumadin. Follow PT/INR.Followup hypercoagulable workup with heme/oncology. 3. History of seizure. Continue home medications. 4. History of depression. Continue home medications. 5. Gastrointestinal prophylaxis. We will place on IV Protonix for now. 6. Deep vein thrombosis prophylaxis, Lovenox and Coumadin 7. Code status, full code. 8. Disposition, observation in medical floor. Level 1 full code. MTDD
[2018-09-04] MEDS ORDERED: ONDANSETRON 4 MG TAB PO PRN (04:11)
[2018-09-04] MEDS ORDERED: DOCUSATE SODIUM 100 MG CAP PO PRN (04:11)
[2018-09-04] MEDS ORDERED: DICYCLOMINE HCL 10 MG CAP PO PRN (04:11)
[2018-09-04] MEDS ORDERED: ALBUTEROL HFA 8 GM INHALER INH PRN (04:11)
[2018-09-04] MEDS ORDERED: ENOXAPARIN 100 MG/1ML SYR SQ SCH (06:00)
[2018-09-04 07:01] LABS: Eosinophils # (auto) 0.02 K/uL (0-0.5); Eosinophils % (auto) 0.4 %; Hematocrit (blood only) 38.5 % (37-47); Immature Granulocytes # (auto) 0.02 K/uL (0.00-0.02); Immature Granulocytes % (auto) 0.4 %; Lymphocytes % (auto) 21.6 %; Mean Corpuscular Hgb Conc 33.8 g/dL (32-36); Mean Corpuscular Volume 91.2 fL (80-100); Mean Platelet Volume 8.3 fL (7.4-10.4); Monocytes # (auto) 0.76 K/uL (0.11-0.59); Monocytes % (auto) 13.7 %; Neutrophils # (auto) 3.56 K/uL (1.4-6.5); Neutrophils % (auto) 63.9 %; Platelet Count 192 K/uL (130-400); RDW Coefficient of Variation 13.4 % (11.5-14.5); RDW Standard Deviation 44.5 fL (36.4-46.3); Red Blood Count 4.22 M/uL (4.2-5.4); White Blood Count 5.56 K/uL (4.8-10.8)
[2018-09-04 07:13] LABS: INR 1.4 (0.9-1.1); Prothrombin Time 14.3 Seconds (9.0-12.0)
[2018-09-04 07:37] LABS: BUN Creatinine Ratio 6.8 (10-20); Calcium 7.9 mg/dl (8.5-10.1); Est GFR (African American) 138.1; Est GFR (Non-African American) 119.1; Magnesium 1.9 mg/dl (1.8-2.4); Potassium 4.4 mmol/L (3.5-5.1)
[2018-09-04] MEDS: VENLAFAXINE HCL XR 150 MG CAPXR PO SCH (08:45)
[2018-09-04] MEDS: LORazepam 1 MG TAB PO SCH ×3 (08:45→23:10)
[2018-09-04] MEDS: MoRPHine SULFATE 4 MG/ML 1 ML CARP\\VIAL IV PRN ×4 (08:45→21:07)
[2018-09-04] MEDS: AMANTADINE HCL 100 MG CAPSULE PO SCH ×2 (08:46→23:06)
[2018-09-04] MEDS: GABAPENTIN 100 MG CAP PO SCH ×3 (08:46→23:06)
[2018-09-04] MEDS: PHENYTOIN SODIUM ER 100 MG CAP PO SCH ×2 (08:46→23:04)
[2018-09-04] MEDS ORDERED: CARBAMAZEPINE 100 MG CHEW TAB PO SCH ×2 (09:00→21:00)
[2018-09-04] MEDS ORDERED: PANTOprazole 40 MG TAB PO SCH ×2 (09:00)
--- NOTE | 2018-09-04 09:28 | Gastrointestinal Consultation ---
Date of Consultation September 04, 2018 Assessment & Plan (1) Nausea and vomitin28 year old female with chronic comorbids outlined above who recently presented with severe abd pain, diagnosed with colitis and PVT on imaging curring on bridging lovenox (last dose of coumain was prior to csopy this Sunday, last dose of lovenox was 0600) who presents with persistent epigastric pain, nausea and vomitint w/o report of black/bloody stools emesis. LFTs and lipase WNL. - NPO - IV PPI BID - EGD timing to be determined - Will need to discuss with attending - She had lovenox at 0600 w/ unknown previous dose - No NSAIDs - Monitor and document all GI output - Needs to follow up with heme-onc for ongoing eval of hypercoag stage - Thank you for allowing us to participate in the care of this patient. Please call with any acute changes, questions or concerns. Please see addendum below with additional recommendation from my supervising physician. Present on Admission?: Yes Supervising Physician Co-Signing Physician Notes Attending attestation I have seen, examined this patient, and agree with the findings and above by our mid-level provider ANTOINETTE Mendez. -Presentation of 2 days of nausea after recent colonoscopy without complication. -Has a recent diagnosis of a partial portal vein thrombus that she is on anticoagulation for, concern for gastroenteritis. Or peptic ulcer disease. -Plan for EGD tomorrow barring continued symptoms. 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 Pt was seen and evaluated, chart reviewed. Pt notes she had recent OP c-scopy. Coumadin has been on hold and has been bridging with lovenox. She is unsure if she had lovenox last evening but appears this was given at 0600. Endorses constant epigastric pain. Sharp stabbing. Constant. Worse with any PO including water. Associated with nausea, vomiting. Emesis has been clear bile. Denies any black/bloody stools. No BM since c-scopy Sunday but denies any prior black/bloody stools. No fever, chills, CP, SOB EGD: none C-scopy 2018: unremarkable w/ negative bx CT ABD 09/03/18: There are no acute infectious or inflammatory findings in the abdomen or pelvis.There is a 3.7 cm left ovarian cyst.Trace nonspecific free fluid in cul-de-sac is likely within physiologic limits.Trace thrombus is again seen within intrahepatic right portal venous branch. This appears diminished from previous.An indeterminant 1.6 cm hepatic lesion is unchanged. CT ABD 08/15/18: No significant change in portal venous thrombus within segment [address] of the liver since CT of August 09, 2018.Resolution of left colon wall thickening since prior CT.Mildly dilated small bowel without transition point to suggest a bowel obstruction. Slightly fluid-filled colon which could reflect a diarrheal state. ABD MRI 08/09/18: Segmental thrombosis of portal vein branches in segment 8 with resultant transient hepatic intensity difference. This is of uncertain etiology. Follow-up liver MR with [facility] in 3-6 months recommended. Correlate for underlying hypercoagulable state. Benign-appearing liver lesions. Inflammatory changes of the descending colon suggest colitis. Inflammatory bowel disease not excluded. CT 08/09/18: Findings are consistent with a mild nonspecific colitis involving predominantly the left colon. This is likely on an infectious or inflammatory basis in this age group. There is trace thrombus within a peripheral intrahepatic branch of the right portal vein. This is new from 2008 and of indeterminant significance.There are 2 low attenuation hepatic lesions which milind sure up to 1.6 cm. These are pathologically indeterminant, but were not seen on the 09/15/2008 examination. Follow-up with a nonemergent dedicated MRI of the liver is recommended for further assessment. Allergies Allergy/AdvReac Type Severity Reaction Status Date / Time prednisone AdvReac Intermediate DILANTIN Verified 09/03/18 20:28 TOXICITY sulfamethoxazole AdvReac Intermediate BURNING,ALIX Verified 09/03/18 20:28 RRHEA trimethoprim AdvReac Intermediate BURNING,ALIX Verified 09/03/18 20:28 RRHEA Bactrim AdvReac Unknown BURNING,ALIX Verified 12/18/17 12:59 RRHEA Home Medications Home Medications Medication Instructions Recorded Confirmed Type amantadine HCl 100 mg PO BID 08/09/18 09/03/18 History gabapentin 300 mg PO TID 08/09/18 09/03/18 History lorazepam 1 mg PO TID 08/09/18 09/03/18 History phenytoin sodium extended 200 mg PO QAM 08/09/18 09/03/18 History [Dilantin Extended] venlafaxine [Effexor XR] 150 mg PO QAM 08/09/18 09/03/18 History pantoprazole 40 mg PO QAM 30 Days #30 tab 08/16/18 09/03/18 Rx albuterol sulfate [Ventolin HFA] 2 puff INHALATION Q4H PRN 09/03/18 09/03/18 History carbamazepine 150 mg PO BID 09/03/18 09/03/18 History carbamazepine [Carbatrol] 600 mg PO BID 09/03/18 09/03/18 History dicyclomine 10 mg PO QID PRN 09/03/18 09/03/18 History docusate sodium 100 mg PO BID PRN 09/03/18 09/03/18 History enoxaparin 100 mg SUBCUT DIRECTED 09/03/18 09/03/18 History ondansetron HCl [Zofran] 4 mg PO Q8H PRN 09/03/18 09/03/18 History phenytoin sodium extended 300 mg PO QPM 09/03/18 09/03/18 History warfarin [Coumadin] 2 mg PO DIRECTED 09/03/18 09/03/18 History Patient History Medical History Seizure disorder (Chronic) Asthma Social History Preferred Language: Moldovan Communication Ability: Effective Health Safety Coordinator Required: No Beliefs That Will Affect Care: None Current Living Situation: Spouse Current Living Situation Comment: Other Information That Helps Us Care for You: No Feels Safe at Home: Yes Safety Concerns: Feels Safe At This Time Smoking Status: Former smoker Hx Alcohol Use: No Hx Substance Use: No Review of Systems Constitutional: + fatigue; no fever, no chills, no sweats, no malaise and no weight loss Respiratory: no cough, no dyspnea, no pain on inspiration and no wheezing Cardiovascular: no chest pain, no radiating jaw, neck or arm pain, no dyspnea on exertion and no palpitations Gastrointestinal: + abdominal pain, + early satiety, + heartburn, + nausea and + vomiting (last episode of emesis was last evening); no belching, no bloating, no coffee ground emesis, no hematemesis, no pain with swallowing, no dysphagia, no cramping, no excessive flatulence, no change in bowel habits, no change in stools, no constipation, no diarrhea/loose stools, no fecal incontinence, no constant urge to pass stools, no blood in stools, no melena and no problem reported Physical Exam Vital Signs (Past 24 Hours): Last Vital Signs Temp 36.7 C 09/04/18 09:01 Pulse 83 09/04/18 09:01 Resp 20 09/04/18 09:01 BP 138/77 09/04/18 09:01 Pulse Ox 100 09/04/18 09:01 Constitutional: + ill appearing, cooperative and comfortable; no acute distress Respiratory: normal respiratory effort, lungs clear to auscultation Cardiovascular: RRR, no murmur, no edema Gastrointestinal (Abdomen): Inspection/Auscultation: normal bowel sounds Percussion/Palpation: + abdomen tender and abdomen soft; no guarding, abdomen not rigid and no abdominal mass Skin: no rashes, warm and dry Results & Data Laboratory Results 09/04/18 09/04/18 09/04/18 Range/Units 06:44 06:44 06:44 WBC 5.56 (4.8-10.8) K/uL RBC 4.22 (4.2-5.4) M/uL Hgb 13.0 (12.0-16.0) g/dL POC Hgb (12.0-16.0) g/dl Hct 38.5 (37-47) % POC Hct (37-47) % MCV 91.2 (80-100) fL MCH 30.8 (25-34) pg MCHC 33.8 (32-36) g/dL RDW Std Deviation 44.5 (36.4-46.3) fL RDW Coeff of Erika 13.4 (11.5-14.5) % Plt Count 192 (130-400) K/uL MPV 8.3 (7.4-10.4) fL Immature Gran % (Auto) 0.4 % Neut % (Auto) 63.9 % Lymph % (Auto) 21.6 % Hem[place]ill % (Auto) 13.7 % Eos % (Auto) 0.4 % Baso % (Auto) 0.0 % Immature Gran # (Auto) 0.02 (0.00-0.02) K/uL Neut # (Auto) 3.56 (1.4-6.5) K/uL Lymph # (Auto) 1.20 (1.2-3.4) K/uL [place]ill # (Auto) 0.76 H (0.11-0.59) K/uL Eos # (Auto) 0.02 (0-0.5) K/uL Baso # (Auto) 0.00 (0-0.2) K/uL PT 14.3 H (9.0-12.0) Seconds INR 1.4 H (0.9-1.1) POC Sodium (135-144) mEq/L Sodium 142 (136-145) mmol/L POC Potassium (3.3-5.0) mEq/L Potassium 4.4 D (3.5-5.1) mmol/L POC Chloride (101-112) mEq/L Chloride 110 H (98-107) mmol/L Carbon Dioxide 28 (21-32) mmol/L POC Total CO2 (24-31) mEq/l Anion Gap 4.0 (3-11) POC Anion Gap (16-25) mmol/L POC BUN (7-18) mg/dl BUN 4 L (7-18) mg/dl Creatinine 0.65 (0.6-1.2) mg/dl POC Creatinine (0.6-1.3) mg/dl Est Cr Clr Drug Dosing 143.0 ml/min Est GFR ( Amer) 138.1 Est GFR (Non-Af Amer) 119.1 BUN/Creatinine Ratio 6.8 L (10-20) Glucose 73 (70-99) mg/dl POC Glucose (other) (70-99) mg/dl Lactate (0.4-2.0) mmol/L Calcium 7.9 L (8.5-10.1) mg/dl POC Ioniz Calcium Jose (1.12-1.32) mmol/l Magnesium 1.9 (1.8-2.4) mg/dl Total Bilirubin (0.2-1) mg/dl AST (15-37) U/L ALT (12-78) U/L Alkaline Phosphatase (45-117) U/L Total Protein (6.4-8.2) gm/dl Albumin (3.4-5.0) gm/dl Globulin (2.5-4.0) gm/dl Albumin/Globulin Ratio (0.9-2) Lipase (73-393) U/L Urine Color Urine Appearance (Clear) Urine pH (4.5-7.5) Ur Specific [place] (1.000-1.030) Urine Protein (Negative) Urine Glucose (UA) (Negative) Urine Ketones (Negative) Urine Blood (Negative) Urine Nitrite (Negative) Urine Bilirubin (Negative) Urine Urobilinogen (Negative) Ur Leukocyte Esterase (Negative) Urine WBC (Auto) (0-5) /hpf Urine RBC (Auto) (0-4) /hpf U Hyaline Cast (Auto) (0-5) /lpf U Epithel Cells (Auto) (0-5) /lpf Urine Bacteria (Auto) (Negative) Urine Yeast POC Ur Test 09/03/18 09/03/18 09/03/18 Range/Units 21:50 21:50 19:14 WBC (4.8-10.8) K/uL RBC (4.2-5.4) M/uL Hgb (12.0-16.0) g/dL POC Hgb 16.7 H (12.0-16.0) g/dl Hct (37-47) % POC Hct 49 H (37-47) % MCV (80-100) fL MCH (25-34) pg MCHC (32-36) g/dL RDW Std Deviation (36.4-46.3) fL RDW Coeff of Erika (11.5-14.5) % Plt Count (130-400) K/uL MPV (7.4-10.4) fL Immature Gran % (Auto) % Neut % (Auto) % Lymph % (Auto) % Hemphill % (Auto) % Eos % (Auto) % Baso % (Auto) % Immature Gran # (Auto) (0.00-0.02) K/uL Neut # (Auto) (1.4-6.5) K/uL Lymph # (Auto) (1.2-3.4) K/uL Hemphill # (Auto) (0.11-0.59) K/uL Eos # (Auto) (0-0.5) K/uL Baso # (Auto) (0-0.2) K/uL PT (9.0-12.0) Seconds INR (0.9-1.1) POC Sodium 139 (135-144) mEq/L Sodium (136-145) mmol/L POC Potassium 3.4 (3.3-5.0) mEq/L Potassium (3.5-5.1) mmol/L POC Chloride 100 L (101-112) mEq/L Chloride (98-107) mmol/L Carbon Dioxide (21-32) mmol/L POC Total CO2 24 (24-31) mEq/l Anion Gap (3-11) POC Anion Gap 20.0 (16-25) mmol/L POC BUN 3 L (7-18) mg/dl BUN (7-18) mg/dl Creatinine (0.6-1.2) mg/dl POC Creatinine 0.6 (0.6-1.3) mg/dl Est Cr Clr Drug Dosing ml/min Est GFR ( Amer) Est GFR (Non-Af Amer) BUN/Creatinine Ratio (10-20) Glucose (70-99) mg/dl POC Glucose (other) 89 (70-99) mg/dl Lactate (0.4-2.0) mmol/L Calcium (8.5-10.1) mg/dl POC Ioniz Calcium Jose 1.13 (1.12-1.32) mmol/l Magnesium (1.8-2.4) mg/dl Total Bilirubin (0.2-1) mg/dl AST (15-37) U/L ALT (12-78) U/L Alkaline Phosphatase (45-117) U/L Total Protein (6.4-8.2) gm/dl Albumin (3.4-5.0) gm/dl Globulin (2.5-4.0) gm/dl Albumin/Globulin Ratio (0.9-2) Lipase (73-393) U/L Urine Color [place] Urine Appearance Clear (Clear) Urine pH 8.0 H (4.5-7.5) Ur Specific Will[place] > 1.045 H (1.000-1.030) Urine Protein Negative (Negative) Urine Glucose (UA) Negative (Negative) Urine Ketones 1+ H (Negative) Urine Blood 3+ H (Negative) Urine Nitrite Negative (Negative) Urine Bilirubin Negative (Negative) Urine Urobilinogen Negative (Negative) Ur Leukocyte Esterase Negative (Negative) Urine WBC (Auto) 1-5 (0-5) /hpf Urine RBC (Auto) >30 H (0-4) /hpf U Hyaline Cast (Auto) 1-5 (0-5) /lpf U Epithel Cells (Auto) >30 H (0-5) /lpf Urine Bacteria (Auto) 1+ H (Negative) Urine Yeast Not Reportable POC Ur Test Pending 09/03/18 09/03/18 09/03/18 Range/Units 19:05 19:05 19:05 WBC (4.8-10.8) K/uL RBC (4.2-5.4) M/uL Hgb (12.0-16.0) g/dL POC Hgb (12.0-16.0) g/dl Hct (37-47) % POC Hct (37-47) % MCV (80-100) fL MCH (25-34) pg MCHC (32-36) g/dL RDW Std Deviation (36.4-46.3) fL RDW Coeff of Erika (11.5-14.5) % Plt Count (130-400) K/uL MPV (7.4-10.4) fL Immature Gran % (Auto) % Neut % (Auto) % Lymph % (Auto) % Hemphill % (Auto) % Eos % (Auto) % Baso % (Auto) % Immature Gran # (Auto) (0.00-0.02) K/uL Neut # (Auto) (1.4-6.5) K/uL Lymph # (Auto) (1.2-3.4) K/uL Hemphill # (Auto) (0.11-0.59) K/uL Eos # (Auto) (0-0.5) K/uL Baso # (Auto) (0-0.2) K/uL PT 12.1 H (9.0-12.0) Seconds INR 1.2 H (0.9-1.1) POC Sodium (135-144) mEq/L Sodium 137 (136-145) mmol/L POC Potassium (3.3-5.0) mEq/L Potassium 3.5 (3.5-5.1) mmol/L POC Chloride (101-112) mEq/L Chloride 103 (98-107) mmol/L Carbon Dioxide 26 (21-32) mmol/L POC Total CO2 (24-31) mEq/l Anion Gap 8.0 (3-11) POC Anion Gap (16-25) mmol/L POC BUN (7-18) mg/dl BUN 5 L (7-18) mg/dl Creatinine 0.78 (0.6-1.2) mg/dl POC Creatinine (0.6-1.3) mg/dl Est Cr Clr Drug Dosing 119.2 ml/min Est GFR ( Amer) 118.2 Est GFR (Non-Af Amer) 102.0 BUN/Creatinine Ratio 6.5 L (10-20) Glucose 86 (70-99) mg/dl POC Glucose (other) (70-99) mg/dl Lactate 1.1 (0.4-2.0) mmol/L Calcium 8.8 (8.5-10.1) mg/dl POC Ioniz Calcium Jose (1.12-1.32) mmol/l Magnesium 1.9 (1.8-2.4) mg/dl Total Bilirubin 0.4 (0.2-1) mg/dl AST 24 (15-37) U/L ALT 28 (12-78) U/L Alkaline Phosphatase 178 H (45-117) U/L Total Protein 8.6 H (6.4-8.2) gm/dl Albumin 4.2 (3.4-5.0) gm/dl Globulin 4.4 H (2.5-4.0) gm/dl Albumin/Globulin Ratio 1.0 (0.9-2) Lipase 54 L (73-393) U/L Urine Color Urine Appearance (Clear) Urine pH (4.5-7.5) Ur Specific [place] (1.000-1.030) Urine Protein (Negative) Urine Glucose (UA) (Negative) Urine Ketones (Negative) Urine Blood (Negative) Urine Nitrite (Negative) Urine Bilirubin (Negative) Urine Urobilinogen (Negative) Ur Leukocyte Esterase (Negative) Urine WBC (Auto) (0-5) /hpf Urine RBC (Auto) (0-4) /hpf U Hyaline Cast (Auto) (0-5) /lpf U Epithel Cells (Auto) (0-5) /lpf Urine Bacteria (Auto) (Negative) Urine Yeast POC Ur Test 09/03/18 Range/Units 19:05 WBC 6.77 (4.8-10.8) K/uL RBC 5.08 (4.2-5.4) M/uL Hgb 15.7 (12.0-16.0) g/dL POC Hgb (12.0-16.0) g/dl Hct 45.8 (37-47) % POC Hct (37-47) % MCV 90.2 (80-100) fL MCH 30.9 (25-34) pg MCHC 34.3 (32-36) g/dL RDW Std Deviation 43.7 (36.4-46.3) fL RDW Coeff of Erika 13.2 (11.5-14.5) % Plt Count 265 (130-400) K/uL MPV 8.5 (7.4-10.4) fL Immature Gran % (Auto) 0.1 % Neut % (Auto) 72.8 % Lymph % (Auto) 17.7 % Hemphill % (Auto) 9.0 % Eos % (Auto) 0.3 % Baso % (Auto) 0.1 % Immature Gran # (Auto) 0.01 (0.00-0.02) K/uL Neut # (Auto) 4.92 (1.4-6.5) K/uL Lymph # (Auto) 1.20 (1.2-3.4) K/uL Hem[place]ill # (Auto) 0.61 H (0.11-0.59) K/uL Eos # (Auto) 0.02 (0-0.5) K/uL Baso # (Auto) 0.01 (0-0.2) K/uL PT (9.0-12.0) Seconds INR (0.9-1.1) POC Sodium (135-144) mEq/L Sodium (136-145) mmol/L POC Potassium (3.3-5.0) mEq/L Potassium (3.5-5.1) mmol/L POC Chloride (101-112) mEq/L Chloride (98-107) mmol/L Carbon Dioxide (21-32) mmol/L POC Total CO2 (24-31) mEq/l Anion Gap (3-11) POC Anion Gap (16-25) mmol/L POC BUN (7-18) mg/dl BUN (7-18) mg/dl Creatinine (0.6-1.2) mg/dl POC Creatinine (0.6-1.3) mg/dl Est Cr Clr Drug Dosing ml/min Est GFR ( Amer) Est GFR (Non-Af Amer) BUN/Creatinine Ratio (10-20) Glucose (70-99) mg/dl POC Glucose (other) (70-99) mg/dl Lactate (0.4-2.0) mmol/L Calcium (8.5-10.1) mg/dl POC Ioniz Calcium Jose (1.12-1.32) mmol/l Magnesium (1.8-2.4) mg/dl Total Bilirubin (0.2-1) mg/dl AST (15-37) U/L ALT (12-78) U/L Alkaline Phosphatase (45-117) U/L Total Protein (6.4-8.2) gm/dl Albumin (3.4-5.0) gm/dl Globulin (2.5-4.0) gm/dl Albumin/Globulin Ratio (0.9-2) Lipase (73-393) U/L Urine Color Urine Appearance (Clear) Urine pH (4.5-7.5) Ur Specific [place] (1.000-1.030) Urine Protein (Negative) Urine Glucose (UA) (Negative) Urine Ketones (Negative) Urine Blood (Negative) Urine Nitrite (Negative) Urine Bilirubin (Negative) Urine Urobilinogen (Negative) Ur Leukocyte Esterase (Negative) Urine WBC (Auto) (0-5) /hpf Urine RBC (Auto) (0-4) /hpf U Hyaline Cast (Auto) (0-5) /lpf U Epithel Cells (Auto) (0-5) /lpf Urine Bacteria (Auto) (Negative) Urine Yeast POC Ur Test (1) Nausea and vomiting Vomiting Intractability: intractable Vomiting type: unspecified Qualified Code(s): R11.2 - Nausea with vomiting, unspecified
[2018-09-04] MEDS: ONDANSETRON INJ 2 MG/ML 2 ML VIAL IV PRN ×2 (10:39→17:18)
[2018-09-04] MEDS: ACETAMINOPHEN 325 MG TAB PO PRN (10:41)
[2018-09-04] MEDS ORDERED: CARBAMAZEPINE 100 MG CHEW TAB PO ONE (11:00)
--- NOTE | 2018-09-04 11:07 | Hospitalist Progress Note ---
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 Was recently in the hospital for severe abdominal pain and found to have portal vein thrombosis and colitis. Returns to hospital for abdominal pain and nausea ASSESSMENT AND PLAN: Severe abdominal pain and nausea. -recent admission and was found to have colitis and portal vein thrombosis. -recent colonoscopy with internal hemorrhoids -history of liver lesion with MRI recently for benign findings and advised for repeat imaging in 3 months -continue anti-emetics -Gastroenterology service is considering EGD for 09/05/18 Portal vein thrombosis -Follow up with hematology/oncology as outpatient -Patient recently on coumadin and Lovenox 90 mg q12 hour as INR is subtherapeutic -patient last received Lovenox 90 mg at 6 AM on 09/04/18 -will hold off further coumadin and Lovenox for possible EGD on 09/05/18, have discussed with patient about starting heparin drip at 6 PM on 09/04/18 as temporary anticoagulation. Have informed gastroenterology physician mechanic's assistant about these plans and likely will need heparin drip to be held 8 hours before endoscopy as per gastroenterology team at this time History of seizure -Continue home medications of carbamazepine, phenytoin, gabapentin wheelchair bound secondary to focal dystonia of leg -continue amantadine -no active leg cramping at this time -PT/OT while in the hospital History of depression. Continue home medications. Deep vein thrombosis prophylaxis: as explained above Code status, full code. Subjective Patient reports that since hospitalization her abdominal symptoms with some improvements. No longer vomiting while on anti-emetics. still with abdominal discomfort and area is around the epigastrum. denies chest pain or shortness of breath. no headache. reports at baseline her left leg may give off from weakness when standing and she typically moves by wheelchair. able to move extremities while laying on bed Physical Exam Vital Signs (Past 24 Hours): Last Vital Signs Temp 36.7 C 09/04/18 09:01 Pulse 83 09/04/18 09:01 Resp 20 09/04/18 09:01 BP 138/77 09/04/18 09:01 Pulse Ox 100 09/04/18 09:01 Constitutional: WD/WN, vitals as above Eyes: PERRL, conjunctivae normal, anicteric sclerae EOM intact bilaterally ENMT: external ear and nose normal, oropharynx normal Neck: trachea midline, no thyromegaly Respiratory: normal respiratory effort, lungs clear to auscultation Cardiovascular: RRR, no murmur, no edema Gastrointestinal (Abdomen): Inspection/Auscultation: abdomen normal to inspection Percussion/Palpation: + abdomen tender (epigastrum tenderness) and abdomen soft Musculoskeletal: Head/Neck/Chest: normocephalic and head atraumatic Neurologic: PERRL, EOMI, accommodation nl, no face palsy, no dysarthria Psychiatric: A+Ox3, euthymic affect (1) Abdominal pain Abdominal location: epigastric Qualified Code(s): R10.13 - Epigastric pain
[2018-09-04] MEDS: CARBAMAZEPINE 200 MG TABCR PO SCH ×2 (11:54→23:08)
[2018-09-04] MEDS: Heparin IV Standard *NO* Bolus IV SCH ×3 (12:19→13:51)
[2018-09-04] MEDS ORDERED: WARFARIN SOD 2 MG TAB PO SCH (16:00)
[2018-09-04] MEDS ORDERED: HEPARIN 25000 UNIT/500 ML D5W IV ONE (16:10)
[2018-09-04 17:31] LABS: Basophils # (auto) 0.01 K/uL (0-0.2); Basophils % (auto) 0.2 %; Eosinophils # (auto) 0.02 K/uL (0-0.5); Eosinophils % (auto) 0.4 %; Hematocrit (blood only) 40.3 % (37-47); Hemoglobin 13.4 g/dL (12.0-16.0); Immature Granulocytes # (auto) 0.01 K/uL (0.00-0.02); Immature Granulocytes % (auto) 0.2 %; Lymphocytes # (auto) 1.02 K/uL (1.2-3.4); Lymphocytes % (auto) 20.5 %; Mean Corpuscular Volume 91.8 fL (80-100); Mean Platelet Volume 8.4 fL (7.4-10.4); Monocytes # (auto) 0.57 K/uL (0.11-0.59); Monocytes % (auto) 11.5 %; Neutrophils # (auto) 3.34 K/uL (1.4-6.5); Neutrophils % (auto) 67.2 %; Platelet Count 190 K/uL (130-400); RDW Coefficient of Variation 13.2 % (11.5-14.5); RDW Standard Deviation 44.1 fL (36.4-46.3); Red Blood Count 4.39 M/uL (4.2-5.4); White Blood Count 4.97 K/uL (4.8-10.8)
[2018-09-04 17:34] LABS: Mean Corpuscular Hgb Conc 33.3 g/dL (32-36)
[2018-09-04 17:51] LABS: INR 1.5 (0.9-1.1); Partial Thromboplastin Ratio 1.3; Partial Thromboplastin Time 34.7 Seconds (21.0-31.0); Prothrombin Time 14.8 Seconds (9.0-12.0)
[2018-09-04] MEDS ORDERED: Heparin Adult STANDARD Wt-Based Dextrose 5% 25,000 units/500 mL IV SCH (18:00)
[2018-09-04] MEDS ORDERED: Nursing to Pharmacy Communication ONE (18:43)
[2018-09-04] MEDS ORDERED: PROMETHAZINE HCL 12.5 MG in SODIUM CHLORIDE 0.9% 50 ML IV STA (22:02)
[2018-09-04] MEDS: CARBAMAZEPINE 100 MG CHEW TAB PO SCH (23:03)
[2018-09-04] MEDS: PANTOprazole 40 MG TAB PO SCH (23:05)
[2018-09-05 00:48] LABS: Partial Thromboplastin Ratio 2.4
[2018-09-05 01:01] LABS: Partial Thromboplastin Time 63.8 Seconds (21.0-31.0)
[2018-09-05] MEDS: MoRPHine SULFATE 4 MG/ML 1 ML CARP\\VIAL IV PRN ×6 (03:33→21:08)
[2018-09-05] MEDS: ONDANSETRON INJ 2 MG/ML 2 ML VIAL IV PRN ×4 (03:36→21:08)
[2018-09-05 08:01] LABS: Basophils # (auto) 0.02 K/uL (0-0.2); Basophils % (auto) 0.5 %; Eosinophils # (auto) 0.02 K/uL (0-0.5); Eosinophils % (auto) 0.5 %; Hematocrit (blood only) 42.2 % (37-47); Hemoglobin 14.2 g/dL (12.0-16.0); Immature Granulocytes # (auto) 0.01 K/uL (0.00-0.02); Immature Granulocytes % (auto) 0.2 %; Lymphocytes # (auto) 1.16 K/uL (1.2-3.4); Lymphocytes % (auto) 27.9 %; Mean Corpuscular Hgb Conc 33.6 g/dL (32-36); Mean Corpuscular Volume 91.3 fL (80-100); Mean Platelet Volume 8.6 fL (7.4-10.4); Monocytes # (auto) 0.74 K/uL (0.11-0.59); Monocytes % (auto) 17.8 %; Neutrophils # (auto) 2.21 K/uL (1.4-6.5); Neutrophils % (auto) 53.1 %; Platelet Count 195 K/uL (130-400); RDW Coefficient of Variation 13.3 % (11.5-14.5); RDW Standard Deviation 44.4 fL (36.4-46.3); Red Blood Count 4.62 M/uL (4.2-5.4); White Blood Count 4.16 K/uL (4.8-10.8)
[2018-09-05 08:11] LABS: INR 1.5 (0.9-1.1); Partial Thromboplastin Ratio 1.2; Prothrombin Time 14.8 Seconds (9.0-12.0)
--- NOTE | 2018-09-05 08:41 | Anesthesiology Consultation ---
Date of Service September 05, 2018 History Surgery Operation Date: 09/05/18 08:30 Proposed Procedures p Esophagogastroduodenoscopy Dr Rogers - Sina Rogers Height/Weight Height: 5 ft 6 in Weight: 90 kg Allergies Allergy/AdvReac Type Severity Reaction Status Date / Time prednisone AdvReac Intermediate DILANTIN Verified 09/03/18 20:28 TOXICITY sulfamethoxazole AdvReac Intermediate BURNING,ALIX Verified 09/03/18 20:28 RRHEA trimethoprim AdvReac Intermediate BURNING,ALIX Verified 09/03/18 20:28 RRHEA Bactrim AdvReac Unknown BURNING,ALIX Verified 12/18/17 12:59 RRHEA Medications Home Medications Medication Instructions Recorded Confirmed Last Taken amantadine HCl 100 mg PO BID 08/09/18 09/03/18 09/03/18 AM DOSE gabapentin 300 mg PO TID 08/09/18 09/03/18 Unknown lorazepam 1 mg PO TID 08/09/18 09/03/18 08/08/18 phenytoin sodium extended 200 mg PO QAM 08/09/18 09/03/18 09/03/18 [Dilantin Extended] venlafaxine [Effexor XR] 150 mg PO QAM 08/09/18 09/03/18 09/03/18 pantoprazole 40 mg PO QAM 30 Days #30 tab 08/16/18 09/03/18 09/03/18 albuterol sulfate [Ventolin HFA] 2 puff INHALATION Q4H PRN 09/03/18 09/03/18 Unknown carbamazepine 150 mg PO BID 09/03/18 09/03/18 09/03/18 AM DOSE carbamazepine [Carbatrol] 600 mg PO BID 09/03/18 09/03/18 09/03/18 AM DOSE dicyclomine 10 mg PO QID PRN 09/03/18 09/03/18 Unknown docusate sodium 100 mg PO BID PRN 09/03/18 09/03/18 Unknown enoxaparin 100 mg SUBCUT DIRECTED 09/03/18 09/03/18 Unknown ondansetron HCl [Zofran] 4 mg PO Q8H PRN 09/03/18 09/03/18 Unknown phenytoin sodium extended 300 mg PO QPM 03/19/19 03/19/19 03/18/19 warfarin [Coumadin] 2 mg PO DIRECTED 09/03/18 09/03/18 Unknown Active Medications Generic Name Dose Route Start Last Admin Trade Name Freq PRN Reason Stop Dose Admin Acetaminophen 650 mg 09/04/18 04:11 09/04/18 10:41 Tylenol PO 10/04/18 04:10 650 mg Q4H PRN Administration pain/fever Amantadine HCl 100 mg 09/04/18 09:00 09/04/18 23:06 Symmetrel PO 10/04/18 08:59 100 mg BID DWAYNE Administration Carbamazepine 150 mg 09/04/18 21:00 09/04/18 23:03 Tegretol PO 10/04/18 20:59 150 mg BID DWAYNE Administration Carbamazepine 600 mg 09/04/18 11:00 09/04/18 23:08 Tegretol Xr PO 10/04/18 10:59 600 mg BID DWAYNE Administration Dicyclomine HCl 10 mg 09/04/18 04:11 09/04/18 13:36 Bentyl PO 10/04/18 04:10 10 mg QID PRN Administration Abdominal Pain/Cramping Gabapentin 300 mg 09/04/18 09:00 09/04/18 23:06 Neurontin PO 10/04/18 08:59 300 mg TID DWAYNE Administration Heparin Sodium/Dextrose 25,000 units in 500 mls @ 0 mls/hr 09/04/18 18:00 09/05/18 04:24 Heparin Sodium/Dextrose IV 10/04/18 17:59 0 units/hr .Q0M DWAYNE 0 mls/hr Titration Protocol 0 UNITS/HR Lorazepam 1 mg 09/04/18 09:00 09/04/18 23:10 Ativan PO 10/04/18 08:59 1 mg TID DWAYNE Administration Morphine Sulfate 3 mg 09/04/18 04:11 09/05/18 07:38 Morphine Sulfate IV 09/18/18 04:10 3 mg Q3H PRN Administration Pain Ondansetron HCl 4 mg 09/04/18 04:11 09/05/18 03:36 Zofran IV 10/04/18 04:10 4 mg Q6H PRN Administration Nausea Pantoprazole Sodium 40 mg 09/04/18 21:00 09/04/18 23:05 Protonix PO 10/04/18 20:59 40 mg BID DWAYNE Administration Phenytoin Sodium 200 mg 09/04/18 09:00 09/04/18 08:46 Dilantin Er PO 10/04/18 08:59 200 mg QAM DWAYNE Administration Phenytoin Sodium 300 mg 09/04/18 21:00 09/04/18 23:04 Dilantin Er PO 10/04/18 20:59 300 mg QPM DWAYNE Administration Venlafaxine HCl 150 mg 09/04/18 09:00 09/04/18 08:45 Effexor Extended Release PO 10/04/18 08:59 150 mg QAM DWAYNE Administration Past Medical History Medical History Seizure disorder (Chronic) Anxiety Colitis Dystonia PVT (portal vein thrombosis) Asthma Past Surgical History Surgical History Hx of tubal ligation Social History Smoking Status: Former smoker Hx Alcohol Use: No Hx Substance Use: No substance use type: marijuana Substance Use Type Other:: medical marijuana Last Used Substance: Unknown Physical Exam Vital Signs Last Vital Signs Temp 36.8 C 09/05/18 08:00 Pulse 87 09/05/18 08:00 Resp 16 09/05/18 08:00 BP 116/78 09/05/18 08:00 Pulse Ox 97 09/05/18 08:00 Testing Laboratory Results 09/05/18 07:22 09/04/18 06:44 PT 14.8 Seconds (9.0-12.0) H 09/05/18 07:22 INR 1.5 (0.9-1.1) H 09/05/18 07:22 APTT 33.0 Seconds (21.0-31.0) H 09/05/18 07:22 Urine Color [place] 09/03/18 21:50 Urine Appearance Clear (Clear) 09/03/18 21:50 Urine pH 8.0 (4.5-7.5) H 09/03/18 21:50 Ur Specific [place] > 1.045 (1.000-1.030) H 09/03/18 21:50 Urine Protein Negative (Negative) 09/03/18 21:50 Urine Glucose (UA) Negative (Negative) 09/03/18 21:50 Urine Ketones 1+ (Negative) H 09/03/18 21:50 Urine Nitrite Negative (Negative) 09/03/18 21:50 Ur Leukocyte Esterase Negative (Negative) 09/03/18 21:50 Urine WBC (Auto) 1-5 /hpf (0-5) 09/03/18 21:50 Urine RBC (Auto) >30 /hpf (0-4) H 09/03/18 21:50 U Hyaline Cast (Auto) 1-5 /lpf (0-5) 09/03/18 21:50 U Epithel Cells (Auto) >30 /lpf (0-5) H 09/03/18 21:50 Urine Bacteria (Auto) 1+ (Negative) H 09/03/18 21:50 09/03/18 21:50 Urine Culture - Final Urine,Clean Catch More than three types of organisms present, all high counts mixed probable skin alexander - No further identifications or sensitivities to follow. 09/03/18 21:50 POC Ur Test Pending
[2018-09-05] MEDS: LORazepam 1 MG TAB PO SCH ×3 (09:34→21:08)
[2018-09-05] MEDS: GABAPENTIN 100 MG CAP PO SCH ×3 (09:35→22:05)
[2018-09-05] MEDS: PHENYTOIN SODIUM ER 100 MG CAP PO SCH ×3 (09:35→23:39)
[2018-09-05] MEDS: VENLAFAXINE HCL XR 150 MG CAPXR PO SCH (09:35)
[2018-09-05] MEDS: AMANTADINE HCL 100 MG CAPSULE PO SCH ×2 (09:36→22:06)
[2018-09-05] MEDS: CARBAMAZEPINE 100 MG CHEW TAB PO SCH ×3 (09:36→23:40)
[2018-09-05] MEDS: PANTOprazole 40 MG TAB PO SCH ×2 (09:36→22:05)
[2018-09-05] MEDS: CARBAMAZEPINE 200 MG TABCR PO SCH ×3 (09:37→23:39)
--- NOTE | 2018-09-05 09:41 | Gastroenterology Progress Note ---
Date of Service September 05, 2018 Assessment & Plan (1) Nausea and vomitin28 year old female with chronic comorbids outlined above who recently presented with severe abd pain, diagnosed with colitis and PVT on imaging curring on bridging lovenox (last dose of coumain was prior to csopy this M onday, last dose of lovenox was 0600 09/04/18 and heparin drip d/c 0400 - NPO - IV PPI BID - EGD this AM - No NSAIDs - Monitor and document all GI output - Needs to follow up with heme-onc for ongoing eval of hypercoag stage - Thank you for allowing us to participate in the care of this patient. Please call with any acute changes, questions or concerns. Please see addendum below with additional recommendation from my supervising physician. Supervising Physician Co-Signing Physician Notes Attending attestation I have seen, examined this patient, and agree with the findings and above by our mid-level provider ANTOINETTE Mendez. -Was planning EGD today but then had a seizure, therefore this was canceled. -Reasonable to do an upper GI at some point, EGD which I am happy to do tomorrow as long as she is not on anticoagulation. Portal vein thrombus is appear to be improved, etiology is still not been delineated. -Okay to make n.p.o. after midnight and will evaluate for an EGD tomorrow, will need to be off anticoagulation. Lovenox for 12-hour dose of may be the best option. I will defer to the primary team. Subjective Pt was seen and evaluated, chart reviewed. Late entry 0830. No family at bedside. Continues to have upper abd pain. Mild nausea, no vomiting. Is NPO except sip of water with meds this AM. heparin drip was stopped 0400. Constitutional: + fatigue; no fever, no chills, no sweats, no malaise and no weight loss Gastrointestinal: + abdominal pain, + early satiety, + heartburn, + nausea and + vomiting (last episode of emesis was last evening); no belching, no bloating, no coffee ground emesis, no hematemesis, no pain with swallowing, no dysphagia, no cramping, no excessive flatulence, no change in bowel habits, no change in stools, no constipation, no diarrhea/loose stools, no fecal incontinence, no constant urge to pass stools, no blood in stools, no melena and no problem reported Physical Exam Vital Signs (Past 24 Hours): Last Vital Signs Temp 36.5 C 09/05/18 09:14 Pulse 91 H 09/05/18 09:14 Resp 20 09/05/18 09:14 BP 158/113 H 09/05/18 09:14 Pulse Ox 98 09/05/18 09:14 Constitutional: + ill appearing, cooperative and comfortable; no acute distress Respiratory: normal respiratory effort, lungs clear to auscultation Cardiovascular: RRR, no murmur, no edema Gastrointestinal (Abdomen): Inspection/Auscultation: normal bowel sounds Percussion/Palpation: + abdomen tender and abdomen soft; no guarding, abdomen not rigid and no abdominal mass Skin: no rashes, warm and dry Results & Data Laboratory Results 09/05/18 09/05/18 09/05/18 Range/Units 07:22 07:22 00:14 WBC 4.16 L (4.8-10.8) K/uL RBC 4.62 (4.2-5.4) M/uL Hgb 14.2 (12.0-16.0) g/dL Hct 42.2 (37-47) % MCV 91.3 (80-100) fL MCH 30.7 (25-34) pg MCHC 33.6 (32-36) g/dL RDW Std Deviation 44.4 (36.4-46.3) fL RDW Coeff of Erika 13.3 (11.5-14.5) % Plt Count 195 (130-400) K/uL MPV 8.6 (7.4-10.4) fL Immature Gran % (Auto) 0.2 % Neut % (Auto) 53.1 % Lymph % (Auto) 27.9 % [place] % (Auto) 17.8 % Eos % (Auto) 0.5 % Baso % (Auto) 0.5 % Immature Gran # (Auto) 0.01 (0.00-0.02) K/uL Neut # (Auto) 2.21 (1.4-6.5) K/uL Lymph # (Auto) 1.16 L (1.2-3.4) K/uL [place] # (Auto) 0.74 H (0.11-0.59) K/uL Eos # (Auto) 0.02 (0-0.5) K/uL Baso # (Auto) 0.02 (0-0.2) K/uL PT 14.8 H (9.0-12.0) Seconds INR 1.5 H (0.9-1.1) APTT 33.0 H 63.8 H* (21.0-31.0) Seconds PTT Ratio 1.2 2.4 09/04/18 09/04/18 Range/Units 17:07 17:07 WBC 4.97 (4.8-10.8) K/uL RBC 4.39 (4.2-5.4) M/uL Hgb 13.4 (12.0-16.0) g/dL Hct 40.3 (37-47) % MCV 91.8 (80-100) fL MCH 30.5 (25-34) pg MCHC 33.3 (32-36) g/dL RDW Std Deviation 44.1 (36.4-46.3) fL RDW Coeff of Erika 13.2 (11.5-14.5) % Plt Count 190 (130-400) K/uL MPV 8.4 (7.4-10.4) fL Immature Gran % (Auto) 0.2 % Neut % (Auto) 67.2 % Lymph % (Auto) 20.5 % [place] % (Auto) 11.5 % Eos % (Auto) 0.4 % Baso % (Auto) 0.2 % Immature Gran # (Auto) 0.01 (0.00-0.02) K/uL Neut # (Auto) 3.34 (1.4-6.5) K/uL Lymph # (Auto) 1.02 L (1.2-3.4) K/uL [place] # (Auto) 0.57 (0.11-0.59) K/uL Eos # (Auto) 0.02 (0-0.5) K/uL Baso # (Auto) 0.01 (0-0.2) K/uL PT 14.8 H (9.0-12.0) Seconds INR 1.5 H (0.9-1.1) APTT 34.7 H (21.0-31.0) Seconds PTT Ratio 1.3 (1) Nausea and vomiting Vomiting Intractability: intractable Vomiting type: unspecified Qualified Code(s): R11.2 - Nausea with vomiting, unspecified
[2018-09-05] MEDS ORDERED: MIDAZOLAM HCL 1 MG/ML 2ML VIAL ONE (09:43)
[2018-09-05] MEDS ORDERED: PROPOFOL IV EMULSION 10 MG/ML 20 ML VIAL IV ONE (09:43)
[2018-09-05] MEDS ORDERED: LIDOCAINE HCL 2% 2 ML VIAL/AMP(20MG/ML) INFIL ONE (09:43)
[2018-09-05 09:54] LABS: Basophils # (auto) 0.01 K/uL (0-0.2); Basophils % (auto) 0.2 %; Eosinophils # (auto) 0.03 K/uL (0-0.5); Eosinophils % (auto) 0.7 %; Hematocrit (blood only) 40.6 % (37-47); Hemoglobin 13.8 g/dL (12.0-16.0); Immature Granulocytes # (auto) 0.01 K/uL (0.00-0.02); Immature Granulocytes % (auto) 0.2 %; Lymphocytes # (auto) 0.86 K/uL (1.2-3.4); Lymphocytes % (auto) 19.1 %; Mean Corpuscular Volume 90.2 fL (80-100); Mean Platelet Volume 8.5 fL (7.4-10.4); Monocytes # (auto) 0.57 K/uL (0.11-0.59); Monocytes % (auto) 12.7 %; Neutrophils # (auto) 3.02 K/uL (1.4-6.5); Neutrophils % (auto) 67.1 %; Platelet Count 185 K/uL (130-400); RDW Coefficient of Variation 13.3 % (11.5-14.5); RDW Standard Deviation 43.7 fL (36.4-46.3)
--- NOTE | 2018-09-05 09:57 | Hospitalist Progress Note ---
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 Was recently in the hospital for severe abdominal pain and found to have portal vein thrombosis and colitis. Returns to hospital for abdominal pain and nausea ASSESSMENT AND PLAN: Severe abdominal pain and nausea. -recent admission and was found to have colitis and portal vein thrombosis. -recent colonoscopy with internal hemorrhoids -history of liver lesion with MRI recently for benign findings and advised for repeat imaging in 3 months -continue anti-emetics -Gastroenterology service was planning for EGD for 09/05/18; however patient had self reported episode of seizure on AM of 09/05/18 and EGD cancelled for now Portal vein thrombosis -Follow up with hematology/oncology as outpatient -Patient recently on coumadin and Lovenox 90 mg q12 hour as INR is subtherapeutic -patient last received Lovenox 90 mg at 6 AM on 09/04/18 -Gastroenterology service was planning for EGD for 09/05/18; patient was placed on heparin drip 6 PM on 09/04/18 with heparin drip stopped on 4 AM of 09/05/18 for possible EGD. Patient had self reported episode of seizure after 9 AM on 09/05/18 and will hold systemic anticoagulation for now History of seizure -Continue home medications of carbamazepine, phenytoin, gabapentin -Patient had self reported episode of seizure after 9 AM on 09/05/18; EEG in progress, repeat labs with creatinine kinase and lactic acid and phenytoin lev els ordered; will transfer to telemetry koenig for closer monitoring,p request neurology consult, have ordered MRI brain imaging seizure protocol, have ordered neurochecks, seizure precautions, and aspiration precautions wheelchair bound secondary to focal dystonia of leg -continue amantadine -no active leg cramping at this time -PT/OT while in the hospital History of depression. Continue home medications. Deep vein thrombosis prophylaxis: as explained above, if systemic anticoagulation remains held, then will place on SCDs temporarily Code status, full code. Subjective This morning after heparin drip was stopped and patient was awaiting to go to EGD, patient reported to nurse that she had a seizure. Patient reports that she saw nurse in the AM at 9 AM. Then patient fell asleep. Then patient awake feeling shaking and generalized body pain. Nurse reported that the episode of seizure was not witnessed by her and estimated that it would not have been more than 10 minutes between seeing patient earlier. Patient did not appear to be shaking when seen by nurse but nurse reported the patient very upset and crying. Medical doctor was paged and also on assessment that patient with no focal motor deficits and is awake and oriented and follows directions at mental baseline. No vomiting. No apparent tongue biting. No visual disturbances Physical Exam Vital Signs (Past 24 Hours): Last Vital Signs Temp 36.5 C 09/05/18 09:14 Pulse 91 H 09/05/18 09:14 Resp 20 09/05/18 09:14 BP 158/113 H 09/05/18 09:14 Pulse Ox 98 09/05/18 09:14 Constitutional: WD/WN, vitals as above Eyes: PERRL, conjunctivae normal, anicteric sclerae EOM intact bilaterally ENMT: external ear and nose normal, oropharynx normal Neck: trachea midline, no thyromegaly Respiratory: normal respiratory effort, lungs clear to auscultation Cardiovascular: RRR, no murmur, no edema Gastrointestinal (Abdomen): Inspection/Auscultation: abdomen normal to inspec tion Percussion/Palpation: + abdomen tender (epigastrum tenderness) and abdomen soft Musculoskeletal: Head/Neck/Chest: normocephalic and head atraumatic Neurologic: PERRL, EOMI, accommodation nl, no face palsy, no dysarthria Psychiatric: A+Ox3, euthymic affect (1) Abdominal pain Abdominal location: epigastric Qualified Code(s): R10.13 - Epigastric pain
[2018-09-05 10:21] LABS: Albumin Globulin Ratio 0.9 (0.9-2); Albumin Level 3.4 gm/dl (3.4-5.0); BUN Creatinine Ratio 6.3 (10-20); Bilirubin,Total 0.4 mg/dl (0.2-1); Creatinine Clr Calc Pharmacy 154.9 ml/min; Est GFR (African American) 141.8; Est GFR (Non-African American) 122.3; Globulin 3.9 gm/dl (2.5-4.0); Potassium 3.4 mmol/L (3.5-5.1); Total Protein 7.3 gm/dl (6.4-8.2)
[2018-09-05] MEDS: POTASSIUM CHLORIDE / WTR 10 MEQ/100 ML PLCT IV SCH ×2 (13:03→13:45)
--- NOTE | 2018-09-05 14:19 | Neurology Consultation ---
Date of Consultation September 05, 2018 Assessment & Plan (1) Seizure disorder: 1. seizure- no adjustment to medication at this time 2. continue dilantin ER 200 mg am 300 mg pm, tegretol 150 mg BID, XR 600 mg BID 3. dilantin level 22 , tegretol 9.7 continue current dosing 4. no driving for 6 months from last seizure date, no heights, no bathing or swimming alone- she is not safe to drive with her ongoing issues 5. GI - for ongoing swallowing issues 6. if unable to take oral dosing of seizure medication will need to switch to IV, or if urgent could use diastat suppositories 7. phenotoin IV could be started if needed and Keppra could be supplemental since Tegretol is only oral formula 8. EEG - no seizure focus 9. LTM has been suggested for this patient and will be discussed again at follow up visit 10. ok from neurology stand point to discharge when stable follow up in neurology clinic as schedule on 12/04/[address] Carter, and appointment with [facility] 11/12/2018 call with any further questions concerns. Supervising Physician Co-Signing Physician Notes I have seen and discussed above patient with Dr Zay Lucero. Patient was seen and examined. I agree with Melissa Maciel PA-C as noted below. Patient awake and alert. Reports having a seizure earlier. This event was unwitnessed. Patient aware of the event. Occurred out of sleep. Woke with shaking. Last 30- seconds. No tongue biting. Denies trouble swallowing at the moment but reporting having trouble keeping medication down. On examine comprehension is intact. Speech is clear. Tongue midline with no atrophy. No abrasion on tongue. Palate elevates symmetrically. No tremor. High arched feet. No clonus. No ataxia with finger to nose. Bautista Negative. Spell described by patient concerning for non epileptic event (preserved awareness with generalized shaking). Routine EEG reviewed and is Normal. Recommend to continue current home medications. Plan to follow up as scheduled with Dr. Carter as outpatient. Please call with any further questions or concerns. 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 She was recently hospitalized for severe abdominal pain and found to have a portal vein thrombosis and colitis. She was started on anticoagulation and treated with antibiotics for colitis and discharged to home. She had a colonoscopy on 09/02/2018 and was told it was ok accept for some internal hemorrhoids. When she resumed oral diet she was having N, V and abdominal pain. She had several episode of vomiting and then came to the ED. She is now complaining of pain in her lower chest and feels nothing is going down when she swallows. Plans are for an UGI tomorrow. She states today she had an unwitnessed seizure. She states she felt herself blacking out and then woke with her muscles shaking and in spasm and it was very painful. As she describes the seizure there was little or no post seizure confusion. Her levels of Tegretol and dilantin were therapeutic range. denies current CP, SOB, abdominal pain, one sided weakness, numbness tingling, vision changes, biting of tongue or incontinence. Allergies Allergy/AdvReac Type Severity Reaction Status Date / Time prednisone AdvReac Intermediate DILANTIN Verified 09/03/18 20:28 TOXICITY sulfamethoxazole AdvReac Intermediate BURNING,ALIX Verified 09/03/18 20:28 RRHEA trimethoprim AdvReac Intermediate BURNING,ALIX Verified 09/03/18 20:28 RRHEA Bactrim AdvReac Unknown BURNING,ALIX Verified 12/18/17 12:59 RRHEA Home Medications Home Medications Medication Instructions Recorded Confirmed Type amantadine HCl 100 mg PO BID 08/09/18 09/03/18 History gabapentin 300 mg PO TID 08/09/18 09/03/18 History lorazepam 1 mg PO TID 08/09/18 09/03/18 History phenytoin sodium extended 200 mg PO QAM 08/09/18 09/03/18 History [Dilantin Extended] venlafaxine [Effexor XR] 150 mg PO QAM 08/09/18 09/03/18 History pantoprazole 40 mg PO QAM 30 Days #30 tab 08/16/18 09/03/18 Rx albuterol sulfate [Ventolin HFA] 2 puff INHALATION Q4H PRN 09/03/18 09/03/18 History carbamazepine 150 mg PO BID 09/03/18 09/03/18 History carbamazepine [Carbatrol] 600 mg PO BID 09/03/18 09/03/18 History dicyclomine 10 mg PO QID PRN 09/03/18 09/03/18 History docusate sodium 100 mg PO BID PRN 09/03/18 09/03/18 History enoxaparin 100 mg SUBCUT DIRECTED 09/03/18 09/03/18 History ondansetron HCl [Zofran] 4 mg PO Q8H PRN 09/03/18 09/03/18 History phenytoin sodium extended 300 mg PO QPM 09/03/18 09/03/18 History warfarin [Coumadin] 2 mg PO DIRECTED 09/03/18 09/03/18 History Patient History Medical History Seizure disorder (Chronic) Anxiety Colitis Dystonia PVT (portal vein thrombosis) Asthma Surgical History Hx of tubal ligation Social History Preferred Language: Chilean Communication Ability: Effective Boring Machine Feeder Required: No Beliefs That Will Affect Care: None Current Living Situation: Spouse Current Living Situation Comment: Other Information That Helps Us Care for You: No Feels Safe at Home: Yes Safety Concerns: Feels Safe At This Time Smoking Status: Former smoker Hx Alcohol Use: No Hx Substance Use: No Physical Exam Vital Signs (Past 24 Hours): Last Vital Signs Temp 36.8 C 09/05/18 11:00 Pulse 82 09/05/18 11:00 Resp 16 09/05/18 11:00 BP 124/76 09/05/18 11:00 Pulse Ox 95 09/05/18 11:00 Physical Exam: Constitutional: appearance nourished, healthy and normal Ears, Nose, Mouth and Throat: mucous membranes moist, no injection and skin normal, eyes normal Cardiovascular: normal S-1 and S-2 and regular rate and rhythm Respiratory: clear to auscultation (CTA) and no rales, ronchi or wheeze Musculoskeletal: no peripheral edema and good distal pulses, left foot spastic movement Skin: no stigmata of neurocutaneous disease noted and normal and intact Eyes: extraocular muscles intact (EOMI) and pupils equal, round and reactive to light (PERRL) NEUROLOGIC EXAMINATION: Mental status: Alert and interactive Oriented to full date and location Oriented to person Speech fluent with no evidence of aphasia Cranial Nerves smile eye brow raise symmetric Reflexes: Deep tendon reflexes were symmetrical and graded 2/5. down going toes bilaterally Sensory: decreased sensation to cool touch, GT proproception intact bilaterally, vibration intact Coordination: finger to nose no bi pass Gait/Stance: Posture lying in bed Motor: Negative for pronator drift of out stretched arms with eyes closed. Strength: biceps triceps hand plastic maker bilaterally 5/5, hip flex patellar plantar flex ext 5/5 Results & Data Laboratory Results Abnormal lab results 09/04/18 09/04/18 09/05/18 Range/Units 17:07 17:07 00:14 WBC (4.8-10.8) K/uL Lymph # (Auto) 1.02 L (1.2-3.4) K/uL Obion # (Auto) (0.11-0.59) K/uL PT 14.8 H (9.0-12.0) Seconds INR 1.5 H (0.9-1.1) APTT 34.7 H 63.8 H* (21.0-31.0) Seconds Potassium (3.5-5.1) mmol/L BUN (7-18) mg/dl BUN/Creatinine Ratio (10-20) Glucose (70-99) mg/dl Calcium (8.5-10.1) mg/dl Alkaline Phosphatase (45-117) U/L Phenytoin (10-20) mcg/ml 09/05/18 09/05/18 09/05/18 Range/Units 07:22 07:22 09:37 WBC 4.16 L 4.50 L (4.8-10.8) K/uL Lymph # (Auto) 1.16 L 0.86 L (1.2-3.4) K/uL Obion # (Auto) 0.74 H (0.11-0.59) K/uL PT 14.8 H (9.0-12.0) Seconds INR 1.5 H (0.9-1.1) APTT 33.0 H (21.0-31.0) Seconds Potassium (3.5-5.1) mmol/L BUN (7-18) mg/dl BUN/Creatinine Ratio (10-20) Glucose (70-99) mg/dl Calcium (8.5-10.1) mg/dl Alkaline Phosphatase (45-117) U/L Phenytoin (10-20) mcg/ml 09/05/18 09/05/18 Range/Units 09:37 09:37 WBC (4.8-10.8) K/uL Lymph # (Auto) (1.2-3.4) K/uL Obion # (Auto) (0.11-0.59) K/uL PT (9.0-12.0) Seconds INR (0.9-1.1) APTT (21.0-31.0) Seconds Potassium 3.4 L D (3.5-5.1) mmol/L BUN 4 L (7-18) mg/dl BUN/Creatinine Ratio 6.3 L (10-20) Glucose 67 L (70-99) mg/dl Calcium 8.0 L (8.5-10.1) mg/dl Alkaline Phosphatase 159 H (45-117) U/L Phenytoin 22.2 H (10-20) mcg/ml Diagnostic Findings CT abdomen- There are no acute infectious or inflammatory findings in the abdomen or pelvis. There is a 3.7 cm left ovarian cyst. Trace nonspecific free fluid in cul-de-sac is likely within physiologic limits. Trace thrombus is again seen within intrahepatic right portal venous branch. This appears diminished from previous. An indeterminant 1.6 cm hepatic lesion is unchanged.
--- NOTE | 2018-09-05 15:34 | Procedure Note ---
EEG Procedure Note Date of Service September 05, 2018 Start / End Times Start Time: 9:53 End Time: 10:[address] Oswald Barfield History A 28 year old woman with history of epilepsy. Patient reported to have seizure this morning. EEG performed for evaluation of epileptiform activity. Home Medication List Home Medications Medication Instructions Recorded Confirmed Type amantadine HCl 100 mg PO BID 08/09/18 09/03/18 History gabapentin 300 mg PO TID 08/09/18 09/03/18 History lorazepam 1 mg PO TID 08/09/18 09/03/18 History phenytoin sodium extended 200 mg PO QAM 08/09/18 09/03/18 History [Dilantin Extended] venlafaxine [Effexor XR] 150 mg PO QAM 08/09/18 09/03/18 History pantoprazole 40 mg PO QAM 30 Days #30 tab 08/16/18 09/03/18 Rx albuterol sulfate [Ventolin HFA] 2 puff INHALATION Q4H PRN 09/03/18 09/03/18 History carbamazepine 150 mg PO BID 09/03/18 09/03/18 History carbamazepine [Carbatrol] 600 mg PO BID 09/03/18 09/03/18 History dicyclomine 10 mg PO QID PRN 09/03/18 09/03/18 History docusate sodium 100 mg PO BID PRN 09/03/18 09/03/18 History enoxaparin 100 mg SUBCUT DIRECTED 09/03/18 09/03/18 History ondansetron HCl [Zofran] 4 mg PO Q8H PRN 09/03/18 09/03/18 History phenytoin sodium extended 300 mg PO QPM 09/03/18 09/03/18 History warfarin [Coumadin] 2 mg PO DIRECTED 09/03/18 09/03/18 History Inpatient Medication List Acetaminophen (Tylenol) 650 mg PO Q4H PRN PRN Reason: pain/fever Stop: 10/04/18 04:10 Last Admin: 09/04/18 10:41 Dose: 650 mg Documented by: [id number] Amantadine HCl (Symmetrel) 100 mg PO BID [facility] Stop: 10/04/18 08:59 Last Admin: 09/05/18 09:36 Dose: 100 mg Documented by: [id number] Admin: 09/04/18 23:06 Dose: 100 mg Documented by: [id number] Admin: 09/04/18 08:46 Dose: 100 mg Documented by: [id number] Carbamazepine (Tegretol) 150 mg PO BID [facility] Stop: 10/04/18 20:59 Last Admin: 09/05/18 09:36 Dose: 150 mg Documented by: [id number] Admin: 09/04/18 23:03 Dose: 150 mg Documented by: [id number] Carbamazepine (Tegretol Xr) 600 mg PO BID [facility] Stop: 10/04/18 10:59 Last Admin: 09/05/18 09:37 Dose: 600 mg Documented by: [id number] Admin: 09/04/18 23:08 Dose: 600 mg Documented by: [id number] Admin: 09/04/18 11:54 Dose: 600 mg Documented by: [id number] Dicyclomine HCl (Bentyl) 10 mg PO QID PRN PRN Reason: Abdominal Pain/Cramping Stop: 10/04/18 04:10 Last Admin: 09/04/18 13:36 Dose: 10 mg Documented by: [id number] Gabapentin (Neurontin) 300 mg PO TID [facility] Stop: 10/04/18 08:59 Last Admin: 09/05/18 13:45 Dose: 300 mg Documented by: [id number] Admin: 09/05/18 09:35 Dose: 300 mg Documented by: [id number] Admin: 09/04/18 23:06 Dose: 300 mg Documented by: [id number] Admin: 09/04/18 13:34 Dose: 300 mg Documented by: [id number] Admin: 09/04/18 08:46 Dose: 300 mg Documented by: [id number] Lorazepam (Ativan) 1 mg PO TID [facility] Stop: 10/04/18 08:59 Last Admin: 09/05/18 13:45 Dose: 1 mg Documented by: [id number] Admin: 09/05/18 09:34 Dose: 1 mg Documented by: [id number] Admin: 09/04/18 23:10 Dose: 1 mg Documented by: [id number] Admin: 09/04/18 13:34 Dose: 1 mg Documented by: [id number] Admin: 09/04/18 08:45 Dose: 1 mg Documented by: [id number] Morphine Sulfate (Morphine Sulfate) 3 mg IV Q3H PRN PRN Reason: Pain Stop: 09/18/18 04:10 Last Admin: 09/05/18 13:52 Dose: 3 mg Documented by: [id number] Cosigned by: [id number] Admin: 09/05/18 10:39 Dose: 3 mg Documented by: [id number] Cosigned by: [id number] Admin: 09/05/18 07:38 Dose: 3 mg Documented by: [id number] Admin: 09/05/18 03:33 Dose: 3 mg Documented by: [id number] Admin: 09/04/18 21:07 Dose: 3 mg Documented by: [id number] Admin: 09/04/18 17:19 Dose: 3 mg Documented by: [id number] Admin: 09/04/18 11:57 Dose: 3 mg Documented by: [id number] Admin: 09/04/18 08:45 Dose: 3 mg Documented by: [id number] Ondansetron HCl (Zofran) 4 mg IV Q6H PRN PRN Reason: Nausea Stop: 10/04/18 04:10 Last Admin: 09/05/18 08:58 Dose: 4 mg Documented by: [id number] Admin: 09/05/18 03:36 Dose: 4 mg Documented by: [id number] Admin: 09/04/18 17:18 Dose: 4 mg Documented by: [id number] Admin: 09/04/18 10:39 Dose: 4 mg Documented by: [id number] Pantoprazole Sodium (Protonix) 40 mg PO BID [facility] Stop: 10/04/18 20:59 Last Admin: 09/05/18 09:36 Dose: 40 mg Documented by: [id number] Admin: 09/04/18 23:05 Dose: 40 mg Documented by: [id number] Phenytoin Sodium (Dilantin Er) 200 mg PO QAM [facility] Stop: 10/04/18 08:59 Last Admin: 09/05/18 09:35 Dose: 200 mg Documented by: [id number] Admin: 09/04/18 08:46 Dose: 200 mg Documented by: [id number] Phenytoin Sodium (Dilantin Er) 300 mg PO QPM [facility] Stop: 10/04/18 20:59 Last Admin: 09/04/18 23:04 Dose: 300 mg Documented by: [id number] Venlafaxine HCl (Effexor Extended Release) 150 mg PO QAM [facility] Stop: 10/04/18 08:59 Last Admin: 09/05/18 09:35 Dose: 150 mg Documented by: [id number] Admin: 09/04/18 08:45 Dose: 150 mg Documented by: [id number] Discontinued Medications Carbamazepine (Tegretol) 150 mg PO BID [facility] Stop: 10/04/18 08:59 Last Admin: 09/04/18 08:48 Dose: 150 mg Documented by: [id number] Enoxaparin Sodium (Lovenox) 90 mg SQ Q12H [facility] Stop: 10/04/18 05:59 Last Admin: 09/04/18 05:58 Dose: 90 mg Documented by: [id number] Heparin Sodium/Dextrose () 1 ea IV Q30M [facility]; Protocol Stop: 09/05/18 16:00 Last Admin: 09/04/18 13:51 Dose: 1 ea Documented by: [id number] Admin: 09/04/18 13:51 Dose: 1 ea Documented by: [id number] Admin: 09/04/18 13:51 Dose: 1 ea Documented by: [id number] Admin: 09/04/18 13:51 Dose: 1 ea Documented by: [id number] Admin: 09/04/18 13:50 Dose: 1 ea Documented by: [id number] Admin: 09/04/18 12:19 Dose: 1 ea Documented by: [id number] Admin: 09/04/18 12:19 Dose: 1 ea Documented by: [id number] Heparin Sodium/Dextrose (Heparin Sodium/Dextrose) Confirm Administered Dose 25,000 units IV .STK-MED ONE Stop: 09/04/18 16:11 Last Admin: 09/04/18 16:22 Dose: Not Given Documented by: [id number] Hydromorphone HCl (Dilaudid) 1 mg IV NOW STA Stop: 09/03/18 20:20 Last Admin: 09/03/18 20:52 Dose: 1 mg Documented by: [id number] Sodium Chloride (Nss 1000ml) 1,000 mls @ 999 mls/hr IV .Q1H1M [facility] Stop: 09/03/18 20:15 Last Infusion: 09/03/18 20:32 Dose: 0 mls/hr Documented by: [id number] Admin: 09/03/18 19:23 Dose: 999 mls/hr Documented by: [id number] Promethazine HCl 12.5 mg/ (Sodium Chloride) 50.5 mls @ 202 mls/hr IV NOW STA Stop: 09/03/18 22:07 Last Infusion: 09/03/18 22:38 Dose: 0 mls/hr Documented by: [id number] Admin: 09/03/18 22:22 Dose: 202 mls/hr Documented by: [id number] Lorazepam (Ativan) 1 mg in 2 mls @ 2 mls/min IV NOW STA Stop: 09/03/18 21:54 Last Admin: 09/03/18 22:22 Dose: 2 mls/min Documented by: [id number] Sodium Chloride (Nss 1000ml) 1,000 mls @ 999 mls/hr IV .Q1H1M ONE Stop: 09/04/18 00:10 Last Infusion: 09/04/18 00:59 Dose: 0 mls/hr Documented by: [id number] Admin: 09/03/18 23:43 Dose: 999 mls/hr Documented by: [id number] Sodium Chloride (Nss 1000ml) 1,000 mls @ 125 mls/hr IV .Q8H [facility] Stop: 10/04/18 00:44 Last Infusion: 09/04/18 07:56 Dose: 0 mls/hr Documented by: [id number] Admin: 09/04/18 00:49 Dose: 125 mls/hr Documented by: [id number] Sodium Chloride (Nss 1000ml) 1,000 mls @ 125 mls/hr IV .Q8H [facility] Stop: 10/04/18 04:10 Last Infusion: 09/04/18 11:58 Dose: 0 mls/hr Documented by: [id number] Admin: 09/04/18 05:05 Dose: 125 mls/hr Documented by: [id number] Heparin Sodium/Dextrose (Heparin Sodium/Dextrose) 25,000 units in 500 mls @ 0 mls/hr IV .Q0M [facility]; Protocol Stop: 10/04/18 17:59 Last Titration: 09/05/18 04:24 Dose: 0 units/hr, 0 mls/hr Documented by: [id number] Cosigned by: [id number] Admin: 09/04/18 17:55 Dose: 1,300 units/hr, 26 mls/hr Documented by: [id number] Cosigned by: [id number] Promethazine HCl 12.5 mg/ (Sodium Chloride) 50.5 mls @ 202 mls/hr IV NOW STA Stop: 09/04/18 22:16 Last Infusion: 09/04/18 22:39 Dose: 0 mls/hr Documented by: [id number] Admin: 09/04/18 22:15 Dose: 202 mls/hr Documented by: [id number] Potassium Chloride (K Darin / Wtr) 10 meq in 100 mls @ 100 mls/hr IV Q1H [facility] Stop: 09/05/18 14:29 Last Infusion: 09/05/18 15:28 Dose: 0 mls/hr Documented by: [id number] Infusion: 09/05/18 14:42 Dose: 0 mls/hr Documented by: [id number] Admin: 09/05/18 13:45 Dose: 100 mls/hr Documented by: [id number] Infusion: 09/05/18 13:45 Dose: 100 mls/hr Documented by: [id number] Admin: 09/05/18 13:03 Dose: 100 mls/hr Documented by: [id number] Ioversol (Optiray 320 100ml) 89 ml IV ONCE PRN PRN Reason: Interaction Checking Stop: 09/07/18 20:00 Last Admin: 09/03/18 20:02 Dose: 89 ml Documented by: [id number] Lidocaine HCl (Xylocaine 2%) Confirm Administered Dose 2 ml INFIL .STK-MED ONE Stop: 09/05/18 09:44 Last Admin: 09/05/18 15:27 Dose: Not Given Documented by: [id number] Metoclopramide HCl (Reglan) 10 mg IV NOW STA Stop: 09/03/18 20:20 Last Admin: 09/03/18 20:52 Dose: 10 mg Documented by: [id number] Midazolam HCl (Versed) Confirm Administered Dose 2 mg .ROUTE .STK-MED ONE Stop: 09/05/18 09:44 Last Admin: 09/05/18 15:27 Dose: Not Given Documented by: [id number] Miscellaneous (Order Awaiting Action) 1 ea N/A QS [facility] Stop: 10/04/18 07:59 Last Admin: 09/04/18 07:55 Dose: Not Given Documented by: [id number] Miscellaneous (Pending Order) 1 ea N/A ONE ONE Stop: 09/04/18 18:01 Last Admin: 09/04/18 17:57 Dose: 1 ea Documented by: [id number] Morphine Sulfate (Morphine Sulfate) 4 mg IV NOW STA Stop: 09/03/18 19:06 Last Admin: 09/03/18 19:23 Dose: 4 mg Documented by: [id number] Ondansetron HCl (Zofran) 4 mg IV NOW STA Stop: 09/03/18 19:06 Last Admin: 09/03/18 19:23 Dose: 4 mg Documented by: [id number] Pantoprazole Sodium (Protonix) 40 mg PO QAM [facility] Stop: 10/04/18 08:59 Last Admin: 09/04/18 08:49 Dose: 40 mg Documented by: [id number] Promethazine HCl (Phenergan) Confirm Administered Dose 12.5 mg IV .STK-MED ONE Stop: 09/03/18 22:12 Last Admin: 09/03/18 22:22 Dose: Not Given Documented by: [id number] Propofol (Diprivan) Confirm Administered Dose 200 mg IV .STK-MED ONE Stop: 09/05/18 09:44 Last Admin: 09/05/18 15:27 Dose: Not Given Documented by: [id number] Description REPORT: This is a 21 electrode EEG with a single channel dedicated to limited EKG. The electrodes were placed in accordance with the International 10-20 system. At the onset of the EEG the patient is drowsy. The posterior dominant rhythm is 8.5 Hz rhythmic activity which is reactive to eye opening. The EEG predominantly consistent of 7-8 Hz theta range activity. Drowsiness is characterized by decreased myogenic artifact, increased theta activity, and roving eye movements. Photic stimulation does not elicit any abnormalities. IMPRESSION: This is a normal awake and drowsy EEG. There is no evidence of epileptiform activity.
[2018-09-05] MEDS ORDERED: GADOBUTROL 65ML VIAL IV PRN (16:58)
--- NOTE | 2018-09-05 17:44 | Magnetic Resonance Report ---
MRI OF THE BRAIN WITHOUT AND WITH IV CONTRAST SEIZURE PROTOCOL CLINICAL HISTORY: patient reported seizure COMPARISON STUDY: MRI of the brain January 08, [address] December 23, 2014. TECHNIQUE: Utilizing a 1.5 Anna magnet and dedicated coil, multiplanar, multiecho imaging of the br ain was performed pre and postcontrast administration. IV administration of 9 mL of Gadavist contras t was uneventful. Thin cut coronal T2 imaging was performed according to seizure protocol. FINDINGS: There are no foci of restricted diffusion to suggest acute infarct. No acute intracranial h emorrhage, midline shift or mass effect is present. Brain volume is normal. Ventricular system is nor mal. The basilar cisterns are patent. There are no extra-axial collections. Flow-voids for the major intracranial vessels are present. There is no intracranial mass or pathologic enhancement. Flow-voids for the major intracranial vessels are present. A 5 mm T2 hyperintense lesion within the left aspect of the pituitary gland is similar to MRI of January 07, 2014. Calvarial signal is maintained. IMPRESSION: 1. No acute intracranial findings. 2. 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 Electronically signed by: Bacilio Garber M.D. 09/05/2018 5:42 PM
[2018-09-05] MEDS ORDERED: LORazepam 1.5 MG/3 ML VIAL IV STA (21:20)
[2018-09-05] MEDS ORDERED: LORazepam 2 MG/4 ML VIAL ONE (21:22)
[2018-09-05] MEDS ORDERED: LORazepam 1 MG/2 ML VIAL IV STA (21:33)
[2018-09-05] MEDS ORDERED: OLANZapine 10 MG/2.1 ML SDV IM STA (21:46)
[2018-09-06] MEDS: MoRPHine SULFATE 4 MG/ML 1 ML CARP\\VIAL IV PRN ×5 (05:29→21:38)
[2018-09-06 08:17] LABS: Basophils # (auto) 0.01 K/uL (0-0.2); Basophils % (auto) 0.2 %; Eosinophils # (auto) 0.04 K/uL (0-0.5); Eosinophils % (auto) 0.6 %; Hematocrit (blood only) 43.4 % (37-47); Immature Granulocytes # (auto) 0.02 K/uL (0.00-0.02); Immature Granulocytes % (auto) 0.3 %; Lymphocytes # (auto) 1.11 K/uL (1.2-3.4); Lymphocytes % (auto) 16.8 %; Mean Corpuscular Hgb Conc 34.6 g/dL (32-36); Mean Corpuscular Volume 89.7 fL (80-100); Mean Platelet Volume 8.8 fL (7.4-10.4); Monocytes # (auto) 0.77 K/uL (0.11-0.59); Monocytes % (auto) 11.7 %; Neutrophils # (auto) 4.64 K/uL (1.4-6.5); Neutrophils % (auto) 70.4 %; Platelet Count 190 K/uL (130-400); RDW Coefficient of Variation 13.4 % (11.5-14.5); Red Blood Count 4.84 M/uL (4.2-5.4); White Blood Count 6.59 K/uL (4.8-10.8)
[2018-09-06 08:25] LABS: INR 1.7 (0.9-1.1); Prothrombin Time 16.5 Seconds (9.0-12.0)
[2018-09-06] MEDS: ONDANSETRON INJ 2 MG/ML 2 ML VIAL IV PRN (08:26)
[2018-09-06 08:41] LABS: Albumin Level 3.7 gm/dl (3.4-5.0); BUN Creatinine Ratio 7.8 (10-20); Calcium 8.6 mg/dl (8.5-10.1); Creatinine Clr Calc Pharmacy 156.9 ml/min; Est GFR (African American) 142.5; Magnesium 1.9 mg/dl (1.8-2.4); Potassium 3.8 mmol/L (3.5-5.1)
[2018-09-06 08:44] LABS: Albumin Globulin Ratio 0.9 (0.9-2); Bilirubin,Total 0.3 mg/dl (0.2-1); Total Protein 7.7 gm/dl (6.4-8.2)
--- NOTE | 2018-09-06 08:49 | Gastroenterology Progress Note ---
Date of Service September 06, 2018 Assessment & Plan (1) Nausea and vomitin28 year old female with chronic comorbids outlined above who recently presented with severe abd pain, diagnosed with colitis and PVT on imaging. AC was held for EGD, prior to procedure there was report of seizure activity undergoing neuro eval. She was kept NPO in event she was cleared for EGD today. Per chart review and pt she had continued unwitnessed seiziures overnight. Will need neuro/anesthesia clearance prior to any elective GI endoscopy - Elective EGD for abd pain - Stable H&H - No sign of GI bleed - Will need neuro/anesthesia clearance prior - Clear liquids, advance as tolerated - PPI BID x 1 month then once daily - Scheduled anti-emetics - Scheduled Bentyl - No NSAIDs - Monitor and document all GI output - Needs to follow up with heme-onc for ongoing eval of hypercoag stage - Thank you for allowing us to participate in the care of this patient. Please call with any acute changes, questions or concerns. Please see addendum below with additional recommendation from my supervising physician. Supervising Physician Co-Signing Physician Notes Attending attestation I have seen, examined this patient, and agree with the findings and above by our mid-level provider ANTOINETTE Mendez. -Much improved, nausea is improved, heartburn persist, we will plan for EGD today. -Patient does desire discharge per her pending results of EGD. Subjective Pt was seen and evaluated, chart reviewed. Late entry, pt was evaluted 0815. No family at bedside. Staff at bedside obtaining cultures. Overall abd pain is slowing improving but still present. It is epigastric. Associated with nausea. She has been tolerating clear liquid diet. She tells me conflicting history. She first notes no vomiting and wishes to advance diet. However, later mentions remaining on clears as she has had vomiting. No BM. No black or bloody stools/emesis. Reports significant seizure activity overnight. Undergoing continued workup per the primary service. Not presently on AC. No fever, chills, CP, SOB. Constitutional: + fatigue; no fever, no chills, no sweats, no malaise and no weight loss Respiratory: no cough, no dyspnea and no wheezing Cardiovascular: no chest pain, no dyspnea on exertion, no palpitations and no claudication Gastrointestinal: + abdominal pain, + early satiety, + heartburn, + nausea and + vomiting (last episode of emesis was last evening); no belching, no bloating, no coffee ground emesis, no hematemesis, no pain with swallowing, no dysphagia, no cramping, no excessive flatulence, no change in bowel habits, no change in stools, no constipation, no diarrhea/loose stools, no fecal incontinence, no constant urge to pass stools, no blood in stools, no melena and no problem reported Physical Exam Vital Signs (Past 24 Hours): Last Vital Signs Temp 36.6 C 09/06/18 07:00 Pulse 82 09/06/18 07:00 Resp 16 09/06/18 07:00 BP 106/67 09/06/18 07:00 Pulse Ox 96 09/06/18 07:00 Constitutional: + ill appearing, cooperative and comfortable; no acute distress Respiratory: normal respiratory effort, lungs clear to auscultation Cardiovascular: RRR, no murmur, no edema Gastrointestinal (Abdomen): Inspection/Auscultation: normal bowel sounds Percussion/Palpation: + abdomen tender and abdomen soft; no guarding, abdomen not rigid and no abdominal mass Skin: no rashes, warm and dry Results & Data Laboratory Results 09/06/18 09/06/18 09/06/18 Range/Units 08:34 07:44 07:44 WBC (4.8-10.8) K/uL RBC (4.2-5.4) M/uL Hgb (12.0-16.0) g/dL Hct (37-47) % MCV (80-100) fL MCH (25-34) pg MCHC (32-36) g/dL RDW Std Deviation (36.4-46.3) fL RDW Coeff of Erika (11.5-14.5) % Plt Count (130-400) K/uL MPV (7.4-10.4) fL Immature Gran % (Auto) % Neut % (Auto) % Lymph % (Auto) % [place] % (Auto) % Eos % (Auto) % Baso % (Auto) % Immature Gran # (Auto) (0.00-0.02) K/uL Neut # (Auto) (1.4-6.5) K/uL Lymph # (Auto) (1.2-3.4) K/uL [place] # (Auto) (0.11-0.59) K/uL Eos # (Auto) (0-0.5) K/uL Baso # (Auto) (0-0.2) K/uL PT (9.0-12.0) Seconds INR (0.9-1.1) Sodium (136-145) mmol/L Potassium (3.5-5.1) mmol/L Chloride (98-107) mmol/L Carbon Dioxide (21-32) mmol/L Anion Gap (3-11) BUN (7-18) mg/dl Creatinine (0.6-1.2) mg/dl Est Cr Clr Drug Dosing ml/min Est GFR ( Amer) Est GFR (Non-Af Amer) BUN/Creatinine Ratio (10-20) Glucose (70-99) mg/dl Lactate Pending (0.4-2.0) mmol/L Calcium (8.5-10.1) mg/dl Magnesium (1.8-2.4) mg/dl Total Bilirubin (0.2-1) mg/dl AST (15-37) U/L ALT (12-78) U/L Alkaline Phosphatase (45-117) U/L Total Creatine Kinase Cancelled (26-192) U/L Total Protein (6.4-8.2) gm/dl Albumin (3.4-5.0) gm/dl Globulin (2.5-4.0) gm/dl Albumin/Globulin Ratio (0.9-2) Prolactin Pending Phenytoin (10-20) mcg/ml 09/06/18 09/06/18 09/06/18 Range/Units 07:44 07:43 07:12 WBC 6.59 (4.8-10.8) K/uL RBC 4.84 (4.2-5.4) M/uL Hgb 15.0 (12.0-16.0) g/dL Hct 43.4 (37-47) % MCV 89.7 (80-100) fL MCH 31.0 (25-34) pg MCHC 34.6 (32-36) g/dL RDW Std Deviation 44.0 (36.4-46.3) fL RDW Coeff of Erika 13.4 (11.5-14.5) % Plt Count 190 (130-400) K/uL MPV 8.8 (7.4-10.4) fL Immature Gran % (Auto) 0.3 % Neut % (Auto) 70.4 % Lymph % (Auto) 16.8 % [place] % (Auto) 11.7 % Eos % (Auto) 0.6 % Baso % (Auto) 0.2 % Immature Gran # (Auto) 0.02 (0.00-0.02) K/uL Neut # (Auto) 4.64 (1.4-6.5) K/uL Lymph # (Auto) 1.11 L (1.2-3.4) K/uL [place] # (Auto) 0.77 H (0.11-0.59) K/uL Eos # (Auto) 0.04 (0-0.5) K/uL Baso # (Auto) 0.01 (0-0.2) K/uL PT 16.5 H (9.0-12.0) Seconds INR 1.7 H (0.9-1.1) Sodium 137 (136-145) mmol/L Potassium 3.8 (3.5-5.1) mmol/L Chloride 103 (98-107) mmol/L Carbon Dioxide 24 (21-32) mmol/L Anion Gap 10.0 (3-11) BUN 5 L (7-18) mg/dl Creatinine 0.59 L (0.6-1.2) mg/dl Est Cr Clr Drug Dosing 156.9 ml/min Est GFR ( Amer) 142.5 Est GFR (Non-Af Amer) 123.0 BUN/Creatinine Ratio 7.8 L (10-20) Glucose 68 L (70-99) mg/dl Lactate (0.4-2.0) mmol/L Calcium 8.6 (8.5-10.1) mg/dl Magnesium 1.9 (1.8-2.4) mg/dl Total Bilirubin 0.3 (0.2-1) mg/dl AST 27 (15-37) U/L ALT 32 (12-78) U/L Alkaline Phosphatase 166 H (45-117) U/L Total Creatine Kinase 65 (26-192) U/L Total Protein 7.7 (6.4-8.2) gm/dl Albumin 3.7 (3.4-5.0) gm/dl Globulin 4.0 (2.5-4.0) gm/dl Albumin/Globulin Ratio 0.9 (0.9-2) Prolactin Phenytoin (10-20) mcg/ml 09/05/18 09/05/18 09/05/18 Range/Units 09:37 09:37 09:37 WBC (4.8-10.8) K/uL RBC (4.2-5.4) M/uL Hgb (12.0-16.0) g/dL Hct (37-47) % MCV (80-100) fL MCH (25-34) pg MCHC (32-36) g/dL RDW Std Deviation (36.4-46.3) fL RDW Coeff of Erika (11.5-14.5) % Plt Count (130-400) K/uL MPV (7.4-10.4) fL Immature Gran % (Auto) % Neut % (Auto) % Lymph % (Auto) % [place] % (Auto) % Eos % (Auto) % Baso % (Auto) % Immature Gran # (Auto) (0.00-0.02) K/uL Neut # (Auto) (1.4-6.5) K/uL Lymph # (Auto) (1.2-3.4) K/uL [place] # (Auto) (0.11-0.59) K/uL Eos # (Auto) (0-0.5) K/uL Baso # (Auto) (0-0.2) K/uL PT (9.0-12.0) Seconds INR (0.9-1.1) Sodium (136-145) mmol/L Potassium (3.5-5.1) mmol/L Chloride (98-107) mmol/L Carbon Dioxide (21-32) mmol/L Anion Gap (3-11) BUN (7-18) mg/dl Creatinine (0.6-1.2) mg/dl Est Cr Clr Drug Dosing ml/min Est GFR ( Amer) Est GFR (Non-Af Amer) BUN/Creatinine Ratio (10-20) Glucose (70-99) mg/dl Lactate 0.7 (0.4-2.0) mmol/L Calcium (8.5-10.1) mg/dl Magnesium 1.9 (1.8-2.4) mg/dl Total Bilirubin (0.2-1) mg/dl AST (15-37) U/L ALT (12-78) U/L Alkaline Phosphatase (45-117) U/L Total Creatine Kinase (26-192) U/L Total Protein (6.4-8.2) gm/dl Albumin (3.4-5.0) gm/dl Globulin (2.5-4.0) gm/dl Albumin/Globulin Ratio (0.9-2) Prolactin Phenytoin 22.2 H (10-20) mcg/ml 09/05/18 09/05/18 Range/Units 09:37 09:37 WBC 4.50 L (4.8-10.8) K/uL RBC 4.50 (4.2-5.4) M/uL Hgb 13.8 (12.0-16.0) g/dL Hct 40.6 (37-47) % MCV 90.2 (80-100) fL MCH 30.7 (25-34) pg MCHC 34.0 (32-36) g/dL RDW Std Deviation 43.7 (36.4-46.3) fL RDW Coeff of Erika 13.3 (11.5-14.5) % Plt Count 185 (130-400) K/uL MPV 8.5 (7.4-10.4) fL Immature Gran % (Auto) 0.2 % Neut % (Auto) 67.1 % Lymph % (Auto) 19.1 % [place] % (Auto) 12.7 % Eos % (Auto) 0.7 % Baso % (Auto) 0.2 % Immature Gran # (Auto) 0.01 (0.00-0.02) K/uL Neut # (Auto) 3.02 (1.4-6.5) K/uL Lymph # (Auto) 0.86 L (1.2-3.4) K/uL [place] # (Auto) 0.57 (0.11-0.59) K/uL Eos # (Auto) 0.03 (0-0.5) K/uL Baso # (Auto) 0.01 (0-0.2) K/uL PT (9.0-12.0) Seconds INR (0.9-1.1) Sodium 136 (136-145) mmol/L Potassium 3.4 L D (3.5-5.1) mmol/L Chloride 102 (98-107) mmol/L Carbon Dioxide 25 (21-32) mmol/L Anion Gap 9.0 (3-11) BUN 4 L (7-18) mg/dl Creatinine 0.60 (0.6-1.2) mg/dl Est Cr Clr Drug Dosing 154.9 ml/min Est GFR ( Amer) 141.8 Est GFR (Non-Af Amer) 122.3 BUN/Creatinine Ratio 6.3 L (10-20) Glucose 67 L (70-99) mg/dl Lactate (0.4-2.0) mmol/L Calcium 8.0 L (8.5-10.1) mg/dl Magnesium (1.8-2.4) mg/dl Total Bilirubin 0.4 (0.2-1) mg/dl AST 35 (15-37) U/L ALT 33 (12-78) U/L Alkaline Phosphatase 159 H (45-117) U/L Total Creatine Kinase 45 (26-192) U/L Total Protein 7.3 (6.4-8.2) gm/dl Albumin 3.4 (3.4-5.0) gm/dl Globulin 3.9 (2.5-4.0) gm/dl Albumin/Globulin Ratio 0.9 (0.9-2) Prolactin Phenytoin (10-20) mcg/ml (1) Nausea and vomiting Vomiting Intractability: intractable Vomiting type: unspecified Qualified Code(s): R11.2 - Nausea with vomiting, unspecified
[2018-09-06] MEDS: VENLAFAXINE HCL XR 150 MG CAPXR PO SCH (10:23)
[2018-09-06] MEDS: PHENYTOIN SODIUM ER 100 MG CAP PO SCH ×2 (10:23→19:35)
[2018-09-06] MEDS: GABAPENTIN 100 MG CAP PO SCH ×3 (10:23→19:37)
[2018-09-06] MEDS: DICYCLOMINE HCL 10 MG CAP PO SCH ×3 (10:23→19:35)
[2018-09-06] MEDS: PANTOprazole 40 MG TAB PO SCH ×2 (10:23→19:33)
[2018-09-06] MEDS: LORazepam 1 MG TAB PO SCH ×3 (10:23→19:32)
[2018-09-06] MEDS: AMANTADINE HCL 100 MG CAPSULE PO SCH ×2 (10:23→19:35)
[2018-09-06] MEDS: CARBAMAZEPINE 100 MG CHEW TAB PO SCH ×2 (10:24→19:33)
[2018-09-06] MEDS: CARBAMAZEPINE 200 MG TABCR PO SCH ×2 (10:24→19:37)
--- NOTE | 2018-09-06 12:11 | Anesthesiology Consultation ---
Date of Service September 06, 2018 Assessment & Plan (1) Encounter for pre-operative examination: Chart Review Chart Review: Acceptable Risk for Surgery Consults Requested none ASA ASA3 Proposed Anesthesia Anesthesia Type: MAC Risk / Benefits Reviewed With: PT / POA / Parent / Guardian, Accepts Plan and Informed Consent Obtained NPO Date Last Intake of Fluids: 09/05/18 Time Last Intake of Fluids: 23:55 Date Last Intake of Solids: 09/05/18 Time Last Intake of Solids: 18:00 History Surgery Operation Date: 09/05/18 08:30 Proposed Procedures p Esophagogastroduodenoscopy Dr Sue Rogers Operation Date: 09/06/18 08:30 Proposed Procedures p Esophagogastroduodenoscopy Dr Sue Rogers Height/Weight Height: 5 ft 6 in Weight: 89.3 kg Allergies Allergy/AdvReac Type Severity Reaction Status Date / Time prednisone AdvReac Intermediate DILANTIN Verified 09/06/18 11:37 TOXICITY sulfamethoxazole AdvReac Intermediate BURNING,ALIX Verified 09/06/18 11:37 RRHEA trimethoprim AdvReac Intermediate BURNING,ALIX Verified 09/06/18 11:37 RRHEA Bactrim AdvReac Unknown BURNING,ALIX Verified 12/18/17 12:59 RRHEA Medications Home Medications Medication Instructions Recorded Confirmed Last Taken amantadine HCl 100 mg PO BID 08/09/18 09/03/18 09/03/18 AM DOSE gabapentin 300 mg PO TID 08/09/18 09/03/18 Unknown lorazepam 1 mg PO TID 08/09/18 09/03/18 08/08/18 phenytoin sodium extended 200 mg PO QAM 08/09/18 09/03/18 09/03/18 [Dilantin Extended] venlafaxine [Effexor XR] 150 mg PO QAM 08/09/18 09/03/18 09/03/18 pantoprazole 40 mg PO QAM 30 Days #30 tab 08/16/18 09/03/18 09/03/18 albuterol sulfate [Ventolin HFA] 2 puff INHALATION Q4H PRN 09/03/18 09/03/18 Unknown carbamazepine 150 mg PO BID 09/03/18 09/03/18 09/03/18 AM DOSE carbamazepine [Carbatrol] 600 mg PO BID 09/03/18 09/03/18 09/03/18 AM DOSE dicyclomine 10 mg PO QID PRN 09/03/18 09/03/18 Unknown docusate sodium 100 mg PO BID PRN 09/03/18 09/03/18 Unknown enoxaparin 100 mg SUBCUT DIRECTED 09/03/18 09/03/18 Unknown ondansetron HCl [Zofran] 4 mg PO Q8H PRN 09/03/18 09/03/18 Unknown phenytoin sodium extended 300 mg PO QPM 09/03/18 09/03/18 09/02/18 warfarin [Coumadin] 2 mg PO DIRECTED 09/03/18 09/03/18 Unknown Active Medications Generic Name Dose Route Start Last Admin Trade Name Freq PRN Reason Stop Dose Admin Acetaminophen 650 mg 09/04/18 04:11 09/04/18 10:41 Tylenol PO 10/04/18 04:10 650 mg Q4H PRN Administration pain/fever Amantadine HCl 100 mg 09/04/18 09:00 09/06/18 10:23 Symmetrel PO 10/04/18 08:59 Not Given BID [facility] Carbamazepine 150 mg 09/04/18 21:00 09/06/18 10:24 Tegretol PO 10/04/18 20:59 Not Given BID [facility] Carbamazepine 600 mg 09/04/18 11:00 09/06/18 10:24 Tegretol Xr PO 10/04/18 10:59 Not Given BID [facility] Dicyclomine HCl 10 mg 09/06/18 09:00 09/06/18 10:23 Bentyl PO 10/06/18 08:59 Not Given TID [facility] Gabapentin 300 mg 09/04/18 09:00 09/06/18 10:23 Neurontin PO 10/04/18 08:59 Not Given TID [facility] Gadobutrol 9 ml 09/05/18 16:58 09/05/18 16:58 Gadavist 65ml IV 09/09/18 16:57 9 ml ONCE PRN Administration Interaction Checking Lorazepam 1 mg 09/04/18 09:00 09/06/18 10:23 Ativan PO 10/04/18 08:59 Not Given TID [facility] Morphine Sulfate 3 mg 09/04/18 04:11 09/06/18 08:25 Morphine Sulfate IV 09/18/18 04:10 3 mg Q3H PRN Administration Pain Ondansetron HCl 4 mg 09/04/18 04:11 09/06/18 08:26 Zofran IV 10/04/18 04:10 4 mg Q6H PRN Administration Nausea Pantoprazole Sodium 40 mg 09/04/18 21:00 09/06/18 10:23 Protonix PO 10/04/18 20:59 Not Given BID [facility] Phenytoin Sodium 200 mg 09/04/18 09:00 09/06/18 10:23 Dilantin Er PO 10/04/18 08:59 Not Given QAM [facility] Phenytoin Sodium 300 mg 09/04/18 21:00 09/05/18 23:39 Dilantin Er PO 10/04/18 20:59 300 mg QPM [facility]AY[facility] Administration Venlafaxine HCl 150 mg 09/04/18 09:00 09/06/18 10:23 Effexor Extended Release PO 10/04/18 08:59 Not Given QAM [facility] Past Medical History Medical History Seizure disorder (Chronic) Anxiety Colitis Dystonia PVT (portal vein thrombosis) Asthma Past Surgical History Surgical History Hx of tubal ligation Past Anesthesia History No Hx of Anesthesia Complications and No Family Hx of Anesthesia Complications History of PONV No Motion Sickness Screening History of Motion Sickness: No Social History Smoking Status: Former smoker Hx Alcohol Use: No Hx Substance Use: No substance use type: marijuana Substance Use Type Other:: medical marijuana Last Used Substance: Unknown Exercise / Class Metabolic Activity III < 4 Walking/Shop/Light housework Physical Exam Vital Signs Last Vital Signs Temp 97.9 F 09/06/18 11:41 Pulse 91 H 09/06/18 11:41 Resp 18 09/06/18 11:41 BP 144/82 H 09/06/18 11:41 Pulse Ox 96 09/06/18 11:41 ENMT Mouth: no dentition abnormality Thyromental Distance: > or= 3.5 Finger Breadths Mallampati Class: II Neck normal visual inspection Respiratory normal respiratory effort Auscultation: lungs clear to auscultation bilaterally Cardiovascular Rate/Rhythm: regular rate and regular rhythm Testing Electrocardiogram Date: 09/05/18 Findings: + NSR @ (87 bpm) and + NSST changes Laboratory Results 09/06/18 07:12 09/06/18 07:44 PT 16.5 Seconds (9.0-12.0) H 09/06/18 07:43 INR 1.7 (0.9-1.1) H 09/06/18 07:43 APTT 33.0 Seconds (21.0-31.0) H 09/05/18 07:22 Urine Color [place] 09/03/18 21:50 Urine Appearance Clear (Clear) 09/03/18 21:50 Urine pH 8.0 (4.5-7.5) H 09/03/18 21:50 Ur Specific [place] > 1.045 (1.000-1.030) H 09/03/18 21:50 Urine Protein Negative (Negative) 09/03/18 21:50 Urine Glucose (UA) Negative (Negative) 09/03/18 21:50 Urine Ketones 1+ (Negative) H 09/03/18 21:50 Urine Nitrite Negative (Negative) 09/03/18 21:50 Ur Leukocyte Esterase Negative (Negative) 09/03/18 21:50 Urine WBC (Auto) 1-5 /hpf (0-5) 09/03/18 21:50 Urine RBC (Auto) >30 /hpf (0-4) H 09/03/18 21:50 U Hyaline Cast (Auto) 1-5 /lpf (0-5) 09/03/18 21:50 U Epithel Cells (Auto) >30 /lpf (0-5) H 09/03/18 21:50 Urine Bacteria (Auto) 1+ (Negative) H 09/03/18 21:50 09/03/18 21:50 Urine Culture - Final Urine,Clean Catch More than three types of organisms present, all high counts mixed probable skin alexander - No further identifications or sensitivities to follow. 09/03/18 21:50 POC Ur Test Pending
[2018-09-06] MEDS ORDERED: LIDOCAINE HCL 2% 2 ML VIAL/AMP(20MG/ML) INFIL ONE (12:22)
[2018-09-06] MEDS ORDERED: PROPOFOL IV EMULSION 10 MG/ML 20 ML VIAL IV ONE (12:22)
[2018-09-06] MEDS ORDERED: MIDAZOLAM HCL 1 MG/ML 2ML VIAL ONE (12:23)
[2018-09-06] MEDS ORDERED: fentaNYL citrate 100 MCG/2 ML VIAL ONE (12:23)
--- NOTE | 2018-09-06 12:40 | GI REPORT ---
Patient Name: Donya Mathis Procedure Date: 09/06/2018 12:25 PM Date of : 1990 Admit Type: Inpatient Age: 28 Gender: Female Attending MD: Sina Rogers MD Procedure: Upper GI endoscopy Providers: Sina Rogers MD Referring MD: Oswald Barfield M.d. Indications: Odynophagia, Heartburn Medicines: Monitored Anesthesia Care Complications: No immediate complications. Estimated blood loss: None. Estimated Blood Loss: Estimated blood loss: none. Procedure: Pre-Anesthesia Assessment: - Pre-Anesthesia Assessment: - Prior to the procedure, a History and Physical was performed, and patient medications, allergies and sensitivities were reviewed. The patient's tolerance of previous anesthesia was reviewed. Please see [employer] for complete details. - The risks and benefits of the procedure and the sedation options and risks were discussed with the patient. All questions were answered and informed consent was obtained. - Patient identification and proposed procedure were verified prior to the procedure by the physician and the nurse. The procedure was verified in the pre-procedure area in the procedure room. After obtaining informed consent, the endoscope was passed carefully and meticuously under direct vision and only advanced when the lumen was clearly identified, C02 insuflation was utilized throughout the entirity of the procedure. Throughout the procedure, the patient's blood pressure, pulse, and oxygen saturations were monitored continuously. After obtaining informed consent, the endoscope was passed under direct vision. Throughout the procedure, the patient's blood pressure, pulse, and oxygen saturations were monitored continuously. The Endoscope was introduced through the mouth, and advanced to the second part of duodenum. The upper GI endoscopy was accomplished without difficulty. The patient tolerated the procedure well. Findings: White nummular lesions were noted in the middle third of the esophagus and in the lower third of the esophagus. Cells for cytology were obtained by brushing. The entire examined stomach was normal. Biopsies were taken with a cold forceps for histology. The examined duodenum was normal. Biopsies for histology were taken with a cold forceps for evaluation of celiac disease. Impression: - White nummular lesions in esophageal mucosa. Cells for cytology obtained. - Normal stomach. Biopsied. - Normal examined duodenum. Biopsied. Recommendation: - Await pathology results. - [facility] patient to [facility] for possible discharge same day. - Return to clinic with Dr. Lovett - Nystatin swish and swallow for Pamela esophagitis given coumadin and diflucan interaction. - Use Prilosec (omeprazole) 20 mg PO daily. - Can resume coumadin until follows up with Hepatology as well as Hematology. Start tomorrow Sina Rogers MD 09/06/2018 12:40:21 PM This report has been signed electronically. Note Initiated On: 09/06/2018 12:25 PM Number of Addenda: 0 I attest to the content of the Intraoperative Record and orders documented therein, exceptions below {[id number]}
--- NOTE | 2018-09-06 12:54 | Anesthesiology Progress Note ---
Date of Service September 06, 2018 Anesthesia Post Procedure Vital Signs Vital Signs: Temp Pulse Pulse Resp BP BP Pulse Ox 09/06/18 12:42 92 H 14 101/91 98 09/06/18 11:41 97.9 F 91 H 18 144/82 H 96 09/06/18 10:55 98.1 F 99 H 18 125/81 98 09/06/18 09:00 76 09/06/18 07:00 97.9 F 82 16 106/67 96 09/06/18 05:29 128/87 09/06/18 04:44 98.1 F 80 18 100/66 93 09/06/18 01:53 90 09/05/18 23:31 97.9 F 90 15 135/90 94 09/05/18 20:07 98.4 F 87 18 104/70 97 09/05/18 17:12 89 16 129/86 99 09/05/18 17:00 86 09/05/18 15:04 98.1 F 85 16 116/76 97 Pain Intensity Abdomen: Pain Intensity: 3 Notes Mental Status: alert / awake / arousable and participated in evaluation Patient Amnestic to Procedure: Yes Nausea / Vomiting: adequately controlled Pain: adequately controlled Airway Patency, RR, SpO2: stable & adequate BP & HR: stable & adequate Hydration State: stable & adequate Anesthetic Complications: no major complications apparent and Pt Satisfied with anesthetic care
[2018-09-06] MEDS: NYSTATIN 500,000 UNIT TAB PO SCH ×2 (15:35→19:36)
--- NOTE | 2018-09-06 17:28 | Hospitalist Progress Note ---
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 Was recently in the hospital for severe abdominal pain and found to have portal vein thrombosis and colitis. Returns to hospital for abdominal pain and nausea ASSESSMENT AND PLAN: Severe abdominal pain and nausea. -recent admission and was found to have colitis and portal vein thrombosis. -recent colonoscopy with internal hemorrhoids -history of liver lesion with MRI recently for benign findings and advised for repeat imaging in 3 months -continue anti-emetics -Gastroenterology service was planning for EGD for 09/05/18; however patient had self reported episode of seizure on AM of 09/05/18 and EGD cancelled for now -Patient returns from EGD on 09/06/18 with findings of liz esophagitis and by started on nystatin and clear liquid diet Portal vein thrombosis -Follow up with hematology/oncology as outpatient -Patient recently on coumadin and Lovenox 90 mg q12 hour as INR is subtherapeutic -patient last received Lovenox 90 mg at 6 AM on 09/04/18 -Gastroenterology service was planning for EGD for 09/05/18; patient was placed on heparin drip 6 PM on 09/04/18 with heparin drip stopped on 4 AM of 09/05/18 for possible EGD. Patient had self reported episode of seizure after 9 AM on 09/05/18 and will hold systemic anticoagulation for now -will try to resume antiocoagulation on 09/06/18 as patient returned from EGD on 09/05/18 History of seizure -Continue home medications of carbamazepine, phenytoin, gabapentin -Patient had self reported episode of seizure after 9 AM on 09/05/18; EEG done in under 30 minutes of the event did not find discharges consistent with seizure and later brain MRI with no acute abnormal changes; neurology service recommended to continue current seizure medications -had suspected that patient may have had pseudoseizure -then at night of 09/05/18, nocturnalist witnessed that patient had episode of general shaking and this was relieved as per night time doctor with olanzapine -patient was well enough to get EGD in AM of 09/06/18 without incident. continue to monitor on telemetry wheelchair bound secondary to focal dystonia of leg -continue amantadine -PT/OT while in the hospital History of depression. Continue home medications. Deep vein thrombosis prophylaxis: SCDs for now Code status, full code. Subjective Overnight patient had episode of general shaking and this was relieved as per night time doctor with olanzapine. Patient at mental baseline this AM and insisted on EGD to be done. Patient returns form EGD with findings of liz esophagitis Patient denies chest pain or shortness of breath. no vomiting Physical Exam Vital Signs (Past 24 Hours): Last Vital Signs Temp 36.8 C 09/06/18 15:04 Pulse 93 H 09/06/18 15:04 Resp 16 09/06/18 15:04 BP 126/86 09/06/18 15:04 Pulse Ox 96 09/06/18 15:04 Constitutional: WD/WN, vitals as above Eyes: PERRL, conjunctivae normal, anicteric sclerae EOM intact bilaterally ENMT: external ear and nose normal, oropharynx normal Neck: trachea midline, no thyromegaly Respiratory: normal respiratory effort, lungs clear to auscultation Cardiovascular: RRR, no murmur, no edema Gastrointestinal (Abdomen): Inspection/Auscultation: abdomen normal to inspection Percussion/Palpation: abdomen soft Musculoskeletal: Head/Neck/Chest: normocephalic and head atraumatic Neurologic: PERRL, EOMI, accommodation nl, no face palsy, no dysarthria Psychiatric: A+Ox3, euthymic affect (1) Abdominal pain Abdominal location: epigastric Qualified Code(s): R10.13 - Epigastric pain
[2018-09-06] MEDS: ACETAMINOPHEN 325 MG TAB PO PRN (17:41)
[2018-09-07] MEDS: MoRPHine SULFATE 4 MG/ML 1 ML CARP\\VIAL IV PRN ×5 (00:24→15:43)
[2018-09-07 06:42] LABS: INR 1.5 (0.9-1.1); Partial Thromboplastin Ratio 1.3; Partial Thromboplastin Time 35.6 Seconds (21.0-31.0); Prothrombin Time 15.1 Seconds (9.0-12.0)
[2018-09-07] MEDS ORDERED: ENOXAPARIN 100 MG/1ML SYR SQ SCH (09:00)
[2018-09-07] MEDS: PHENYTOIN SODIUM ER 100 MG CAP PO SCH (09:09)
[2018-09-07] MEDS: AMANTADINE HCL 100 MG CAPSULE PO SCH (09:09)
[2018-09-07] MEDS: NYSTATIN 500,000 UNIT TAB PO SCH ×2 (09:09→13:14)
[2018-09-07] MEDS: VENLAFAXINE HCL XR 150 MG CAPXR PO SCH (09:09)
[2018-09-07] MEDS: CARBAMAZEPINE 100 MG CHEW TAB PO SCH (09:10)
[2018-09-07] MEDS: PANTOprazole 40 MG TAB PO SCH (09:10)
[2018-09-07] MEDS: DICYCLOMINE HCL 10 MG CAP PO SCH ×2 (09:10→13:15)
[2018-09-07] MEDS: CARBAMAZEPINE 200 MG TABCR PO SCH (09:11)
[2018-09-07] MEDS: GABAPENTIN 100 MG CAP PO SCH ×2 (09:11→13:15)
[2018-09-07] MEDS: LORazepam 1 MG TAB PO SCH ×2 (09:14→13:16)
[2018-09-07] MEDS ORDERED: WARFARIN SOD 5 MG TAB PO ONE (11:09)
[2018-09-07] MEDS: ONDANSETRON INJ 2 MG/ML 2 ML VIAL IV PRN (12:17)
[2018-09-07] MEDS ORDERED: WARFARIN SOD 5 MG TAB PO SCH (16:00)
--- NOTE | 2018-09-07 16:30 | Hospitalist Progress Note ---
Date of Service September 07, 2018 Assessment & Plan (1) Abdominal pain: 28-year-old female with past medical history significant for seizure disorder, chronic back pain, myoclonus, dystonia, anxiety, history of medical marijuana use, history of benign neoplasm of pituitary, wheelchair bound sec ondary to focal dystonia of leg. Was recently in the hospital for severe abdominal pain and found to have portal vein thrombosis and colitis. Returns to hospital for abdominal pain and nausea ASSESSMENT AND PLAN: Generalized abdominal pain secondary to liz esophagitis, non intractible vomiting with nausea, -recent admission and was found to have colitis and portal vein thrombosis. -recent colonoscopy with internal hemorrhoids -history of liver lesion with MRI recently for benign findings and advised for repeat imaging in 3 months -continue anti-emetics -Gastroenterology service was planning for EGD for 09/05/18; however patient had self reported episode of seizure on AM of 09/05/18 and EGD cancelled for now -Patient returns from EGD on 09/06/18 with findings of liz esophagitis and by started on nystatin and diet -Patient should take 5 ml nystatin 4 times a day for 14 days as swish and swallow. Patient may take pantoprazole 40 mg twice a day Portal vein thrombosis -Follow up with hematology/oncology as outpatient -Patient recently on coumadin and Lovenox 90 mg q12 hour as INR is subtherapeutic -patient last received Lovenox 90 mg at 6 AM on 09/04/18 -Gastroenterology service was planning for EGD for 09/05/18; patient was placed on heparin drip 6 PM on 09/04/18 with heparin drip stopped on 4 AM of 09/05/18 for possible EGD. Patient had self reported episode of seizure after 9 AM on 09/05/18 and systemic anticoagulation was held -was resumed antiocoagulation on 09/07/18 as BID Lovenox and coumadin 5 mg -Discharge to home. Patient should take coumadin 3mg at home starting on 09/08/18 and take the prescribed 90 unit q 12 hour Lovenox. Patient has INR check on 09/09/2018 10:50 AM Provider [facility] Department Pharmacy, [facility] History of Seizure, Pseudoseizure during hospital stay -Continue home medications of carbamazepine, phenytoin, gabapentin -Patient had self reported episode of seizure after 9 AM on 09/05/18; EEG done in under 30 minutes of the event did not find discharges consistent with seizure and later brain MRI with no acute abnormal changes; neurology service recommended to continue current seizure medications -had suspected that patient may have had pseudoseizure -then at night of 09/05/18, nocturnalist witnessed that patient had episode of general shaking and this was relieved as per night time doctor with olanzapine -patient was well enough to get EGD in AM of 09/06/18 without incident. -no further pseudoseizures at this time ambulates at home with wheelchair secondary to focal dystonia of leg -continue amantadine -PT/OT while in the hospital completed History of depression. Continue home medications. Deep vein thrombosis prophylaxis: SCDs for now Code status, full code. Discharge Diagnosis Generalized abdominal pain secondary to liz esophagitis, non intractible vomiting with nausea, portal vein thrombosis, History of Seizure, Pseudoseizure during hospital stay Discharge Instructions Discharge to home. Patient should take coumadin 3mg at home starting on 09/08/18 and take the prescribed 90 unit q 12 hour Lovenox. Patient has INR check on 09/09/2018 10:50 AM Provider [facility], [facility] Patient should take 5 ml nystatin 4 times a day for 14 days as swish and swallow. Patient may take pantoprazole 40 mg twice a day [facility] appointment line was notified to have patient get scheduled follow up with primary medical doctor 09/11/2018 1:40 PM Provider Francisco Carter MD Department Neurology [facility] 09/18/2018 1:15 PM Provider Edwin Daniels MD Department Hematology/Oncology [facility] 09/18/2018 2:00 PM Provider ANTOINETTE Klein Department Gastroenterology, [facility] 10/28/2018 1:50 PM Provider Arabella Noland DO Department Family [facility] 11/12/2018 4:20 PM [facility] 12/04/2018 1:40 PM Provider Francisco Carter MD Department Neurology [facility] Subjective No episode of seizure or pseudoseizure overnight. Patient continues to have throat and abdominal discomfort with food but ate her meals and getting the nystatin. Patient denies shortness of breath. no problems with breathing. hospitalist and patient discussed discharge follow ups and instructions at length Physical Exam Vital Signs (Past 24 Hours): Last Vital Signs Temp 36.7 C 09/07/18 15:40 Pulse 97 H 09/07/18 15:40 Resp 17 09/07/18 15:40 BP 124/80 09/07/18 15:40 Pulse Ox 98 09/07/18 15:40 Constitutional: WD/WN, vitals as above Eyes: PERRL, conjunctivae normal, anicteric sclerae EOM intact bilaterally ENMT: external ear and nose normal, oropharynx normal Neck: trachea midline, no thyromegaly Respiratory: normal respiratory effort, lungs clear to auscultation Cardiovascular: RRR, no murmur, no edema Gastrointestinal (Abdomen): Inspection/Auscultation: abdomen normal to inspection Percussion/Palpation: abdomen soft Musculoskeletal: Head/Neck/Chest: normocephalic and head atraumatic Neurologic: PERRL, EOMI, accommodation nl, no face palsy, no dysarthria Psychiatric: A+Ox3, euthymic affect (1) Abdominal pain Abdominal location: epigastric Qualified Code(s): R10.13 - Epigastric pain
--- NOTE | 2018-09-07 16:37 | Discharge Summary ---
Date of Service September 07, 2018 Admission HPI Per Admitting Provider CHIEF COMPLAINT: Severe abdominal pain and nausea. 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 Was recently in the hospital for severe abdominal pain and found to have portal vein thrombosis and colitis. She was started on anticoagulation for portal vein thrombosis and treated with antibiotics for colitis and discharged home . Was seen by GI and hem/onc last admission.. Patient followed up with GI and had colonoscopy done on 09/02/2018. Seems to be okay except for internal hemorrhoids. After coming home, she started back on diet and on morning she started to have nausea, vomiting, and abdominal pain. She vomited all day and came to the ER requiring several doses of antiemetics. Complains of pain in the lower chest and she thinks nothing is going down below the lower chest. Otherwise, resting comfortably. Complains of some headaches. She says on and off she gets some blurred visions, double visions, but right now she does not have any double vision. Complains of some shortness of breath with the pain. Has some cough. No fever, no chills. Did not moved her bowels since the colonoscopy. Normal bladder movements. ALLERGIES: BACTRIM AND PREDNISONE. PAST MEDICAL HISTORY: As mentioned above. PAST SURGICAL HISTORY: Colonoscopy, dental surgery, ligation of oviduct, treatment of incomplete . MEDICATIONS: The patient is on gabapentin 300 mg p.o. t.i.d., Lovenox bridge, Coumadin 2 mg daily, Bentyl 10 mg p.o. q.i.d. p.r.n., Colace 100 mg p.o. b.i.d. p.r.n., Zofran 4 mg p.o. every 8 hours p.r.n., Protonix 40 mg p.o. daily, Ativan 1 mg p.o. t.i.d., carbamazepine 600 mg b.i.d., carbamazepine 150 mg p.o. b.i.d., phenytoin ER 200 mg in a.m. and 300 mg in p.m., Ventolin 2 puffs every 4 hours p.r.n., amantadine 100 mg p.o. b.i.d., Effexor 150 mg p.o. daily. FAMILY HISTORY: Significant for father has hypertension, hyperlipidemia, heart disorder. Mother has depression, hyperlipidemia. Sister has colon cancer, ulcerative colitis. SOCIAL HISTORY: Former smoker, quit in 2009. Alcohol rarely. Marijuana, smokes medical marijuana. , lives with her and daughter. Admission Exam Per Admitting Provider REVIEW OF SYSTEMS: As per HPI. Rest of review of systems negative. PHYSICAL EXAMINATION: GENERAL: The patient is of moderate build, not in acute distress. VITAL SIGNS: Temperature 36.7, pulse 78, respiratory rate 16, blood pressure 123/86, oxygen 98% room air. HEENT: No pallor, no icterus. Pupils equal, round, and reactive to light. NECK: No JVD, no neck masses, no carotid bruit. CARDIOVASCULAR: S1, S2 heard, regular rate and rhythm, no murmur, no gallop. RESPIRATORY SYSTEM: Normal AP diameter. No accessory muscle use. No wheezing, no crackles. ABDOMEN: Soft, bowel sounds present. Mildly increased abdominal discomfort. No guarding, no rigidity, no distention. CENTRAL NERVOUS SYSTEM: Cranial nerves II-XII grossly intact, nonfocal. EXTREMITIES: No edema, no erythema. Principal Diagnosis Generalized abdominal pain secondary to liz esophagitis, non intractible vomiting with nausea, portal vein thrombosis, History of Seizure, Pseudoseizure during hospital stay Discharge Exam Constitutional WD/WN, vitals as above Eyes PERRL, conjunctivae normal, anicteric sclerae EOM intact bilaterally ENMT external ear and nose normal, oropharynx normal Neck trachea midline, no thyromegaly Respiratory normal respiratory effort, lungs clear to auscultation Cardiovascular RRR, no murmur, no edema Gastrointestinal (Abdomen) Inspection/Auscultation: abdomen normal to inspection Percussion/Palpation: abdomen soft Musculoskeletal Head/Neck/Chest: normocephalic and head atraumatic Neurologic PERRL, EOMI, accommodation nl, no face palsy, no dysarthria Psychiatric A+Ox3, euthymic affect Discharge Data Allergies Allergy/AdvReac Type Severity Reaction Status Date / Time prednisone AdvReac Intermediate DILANTIN Verified 09/06/18 11:37 TOXICITY sulfamethoxazole AdvReac Intermediate BURNING,ALIX Verified 09/06/18 11:37 RRHEA trimethoprim AdvReac Intermediate BURNING,ALIX Verified 09/06/18 11:37 RRHEA Bactrim AdvReac Unknown BURNING,ALIX Verified 12/18/17 12:59 RRHEA Consultations 09/04/18 00:35 ED Decision to Admit Stat 09/04/18 08:00 Consult Gastroenterology Routine 09/05/18 09:34 Consult Neurology Routine Procedures Performed Operation Date: 09/05/18 08:30 <No data on this case meets the specified criteria> Operation Date: 09/06/18 08:30 Actual Procedures p EGD Biopsy Cytology - Sina Rogers Ordered Studies 09/03/18 19:05 CT abd pelvis IV con only Stat 09/05/18 09:42 MR brain seizure wo/w con Routine Hospital Course (1) Abdominal pain: 28-year-old female with past medical history significant for seizure disorder, chronic back pain, myoclonus, dystonia, anxiety, history of medical marijuana use, history of benign neoplasm of pituitary, wheelchair bound secondary to focal dystonia of leg. Was recently in the hospital for severe abdominal pain and found to have portal vein thrombosis and colitis. Returns to hospital for abdominal pain and nausea ASSESSMENT AND PLAN: Generalized abdominal pain secondary to liz esophagitis, non intractible vomiting with nausea, -recent admission and was found to have colitis and portal vein thrombosis. -recent colonoscopy with internal hemorrhoids -history of liver lesion with MRI recently for benign findings and advised for repeat imaging in 3 months -continue anti-emetics -Gastroenterology service was planning for EGD for 09/05/18; however patient had self reported episode of seizure on AM of 09/05/18 and EGD cancelled for now -Patient returns from EGD on 09/06/18 with findings of liz esophagitis and by started on nystatin and diet -Patient should take 5 ml nystatin 4 times a day for 14 days as swish and swallow. Patient may take pantoprazole 40 mg twice a day Portal vein thrombosis -Follow up with hematology/oncology as outpatient -Patient recently on coumadin and Lovenox 90 mg q12 hour as INR is subtherapeutic -patient last received Lovenox 90 mg at 6 AM on 09/04/18 -Gastroenterology service was planning for EGD for 09/05/18; patient was placed on heparin drip 6 PM on 09/04/18 with heparin drip stopped on 4 AM of 09/05/18 for possible EGD. Patient had self reported episode of seizure after 9 AM on 09/05/18 and systemic anticoagulation was held -was resumed antiocoagulation on 09/07/18 as BID Lovenox and coumadin 5 mg -Discharge to home. Patient should take coumadin 3mg at home starting on 09/08/18 and take the prescribed 90 unit q 12 hour Lovenox. Patient has INR check on 09/09/2018 10:50 AM Provider [facility] Department [facility], [place] History of Seizure, Pseudoseizure during hospital stay -Continue home medications of carbamazepine, phenytoin, gabapentin -Patient had self reported episode of seizure after 9 AM on 09/05/18; EEG done in under 30 minutes of the event did not find discharges consistent with seizure and later brain MRI with no acute abnormal changes; neurology service recommended to continue current seizure medications -had suspected that patient may have had pseudoseizure -then at night of 09/05/18, nocturnalist witnessed that patient had episode of general shaking and this was relieved as per night time doctor with olanzapine -patient was well enough to get EGD in AM of 09/06/18 without incident. -no further pseudoseizures at this time ambulates at home with wheelchair secondary to focal dystonia of leg -continue amantadine -PT/OT while in the hospital completed History of depression. Continue home medications. Deep vein thrombosis prophylaxis: SCDs for now Code status, full code. Discharge Diagnosis Generalized abdominal pain secondary to liz esophagitis, non intractible vomiting with nausea, portal vein thrombosis, History of Seizure, Pseudoseizure during hospital stay Discharge Instructions Discharge to home. Patient should take coumadin 3mg at home starting on 09/08/18 and take the prescribed 90 unit q 12 hour Lovenox. Patient has INR check on 09/09/2018 10:50 AM Provider [facility] Department [facility], [place] Patient should take 5 ml nystatin 4 times a day for 14 days as swish and swallow. Patient may take pantoprazole 40 mg twice a day [facility] appointment line was notified to have patient get scheduled follow up with primary medical doctor 09/11/2018 1:40 PM Provider Francisco Carter MD Department Neurology [facility] 09/18/2018 1:15 PM Provider Edwin Daniels MD Department Hematology/Oncology [facility] 09/18/2018 2:00 PM Provider ANTOINETTE Klein Department Gastroenterology, [facility] 10/28/2018 1:50 PM Provider Arabella Noland DO Department [facility] 11/12/2018 4:20 PM [facility] 1:40 PM Provider Francisco Carter MD Department Neurology [facility] Total Time Total Time Spent Total Time Spent (In Minutes): 40 minutes Total Time Includes: Examination of the Patient, Discharge Planning and Medication Reconciliation Discharge Plan Discharge Items Patient Disposition: Home - Self-Care Reason For Visit: ABDOMINAL PAIN Discharge Diagnosis: Generalized abdominal pain secondary to liz esophagitis, non intractible vomiting with nausea, portal vein thrombosis, History of Seizure, Pseudoseizure during hospital stay Condition: Fair Discharge Goals: Improve disease control Activity: Resume your previous activity Non-emergency contact: Primary Care Provider and Specialist Call non-emergency contact if: you have any medication questions Follow-up/Referrals: Arabella Noland DO [Primary Care Provider] - Diet: Regular Diet Comment: soft diet as tolerated Addtl Provider Instructions: Discharge to home. Patient should take coumadin 3mg at home starting on 09/08/18 and take the prescribed 90 unit q 12 hour Lovenox. Patient has INR check on 09/09/2018 10:50 AM Provider [facility], [place] Patient should take 5 ml nystatin 4 times a day for 14 days as swish and swallow. Patient may take pantoprazole 40 mg twice a day [facility] appointment line was notified to have patient get scheduled follow up with primary medical doctor 09/11/2018 1:40 PM Provider Francisco Carter MD Department Neurology [facility] 09/18/2018 1:15 PM Provider Edwin Daniels MD Department Hematology/Oncology [facility] 09/18/2018 2:00 PM Provider ANTOINETTE Klein Department Gastroenterology, [facility] 10/28/2018 1:50 PM Provider Arabella Noland DO Department Family [facility] 11/12/2018 4:20 PM [facility] 12/04/2018 1:40 PM Provider Francisco Carter MD Department Neurology [facility] Prescriptions: New nystatin 100,000 unit/mL Suspension 5 ml PO QID 14 Days Qty: 280 RF: 0 warfarin [Coumadin] 3 mg Tablet 3 mg PO DAILY@1600 30 Days Qty: 30 RF: 0 enoxaparin 100 mg/mL Syringe 90 mg subcut Q12H 1 Days Qty: 1.8 RF: 0 pantoprazole 40 mg Tablet,Delayed Release (Dr/Ec) 40 mg PO BID 30 Days Qty: 60 RF: 0 Continued venlafaxine [Effexor XR] 150 mg Capsule,Extended Release 24hr 150 mg PO QAM RF: 0 gabapentin 100 mg Capsule 300 mg PO TID RF: 0 lorazepam 1 mg Tablet 1 mg PO TID RF: 0 phenytoin sodium extended [Dilantin Extended] 100 mg Capsule 200 mg PO QAM RF: 0 amantadine HCl 100 mg Tablet 100 mg PO BID RF: 0 phenytoin sodium extended 100 mg Capsule 300 mg PO QPM RF: 0 carbamazepine 100 mg Tablet,Chewable 150 mg PO BID RF: 0 carbamazepine [Carbatrol] 300 mg Capsule, Er Multiphase 12 Hr 600 mg PO BID RF: 0 albuterol sulfate [Ventolin HFA] 90 mcg/actuation Hfa Aerosol Inhaler 2 puff INHALATION Q4H PRN (Reason: Wheezing) RF: 0 ondansetron HCl [Zofran] 4 mg Tablet 4 mg PO Q8H PRN (Reason: Nausea) RF: 0 docusate sodium 100 mg capsule 100 mg PO BID PRN (Reason: Constipation) RF: 0 dicyclomine 10 mg capsule 10 mg PO QID PRN (Reason: Abdominal Pain/Cramping) RF: 0 Discontinued pantoprazole 40 mg Tablet,Delayed Release (Dr/Ec) 40 mg PO QAM 30 Days Qty: 30 RF: 1 warfarin [Coumadin] 2 mg tablet 2 mg PO DIRECTED RF: 0 enoxaparin 100 mg/mL Syringe 100 mg SUBCUT DIRECTED RF: 0 Stand-Alone Forms: [facility] Discharge Orders: Discharge Order (Routine); Ordered 09/07/18 Ordered By: Oswald Barfield Admission Data Admit Date/Time: 09/05/18 09:36 Attending Provider: Oswald Barfield Admit Provider: Antonino Tee Primary Care Provider: Arabella Noland Other Providers: Antonino Tee ; Graciela Landry ; Ashleigh Nazario ; Shadia Sterling ; Sina Rogers ; Keo Ornelas ; Kirsty Kennedy ; Rosana Mckeon ; Ziggy Sarabia ; Tomi Freeman ; Kathryn Huntley ; Trish Castro ; Jill Sandhu ; Yamilet Lovett ; Lenard Gomez ; Zay Lucero Service: Telemetry Other Pending Studies at Discharge: Yes Studies:: EGD pathology report pending
[2018-09-07] MEDS ORDERED: NYSTATIN SUSP 500,000 U/5 ML UDC PO SCH (17:00)
[2018-09-07] MEDS ORDERED: SODIUM CHLORIDE 0.9% 1000ML 250 ML IV ONE (17:49)
[2018-09-08] MEDS ORDERED: WARFARIN SOD 3 MG TAB PO SCH (16:00)
== END 2018-09-07 19:06 | disposition home or self-care (01) | DRG 391 ==
LOC: 4E 18:46 → ED 18:46 → SUATTDRO 09-04 02:27 → 4E 09-04 03:14 → 2S 09-05 10:57

== ENCOUNTER 2021-08-28 15:41 | Inpatient (IN) ==
[2021-08-28] MEDS ORDERED: LORazepam 2 MG/1 ML VIAL IV STA ×2 (16:01→17:59)
[2021-08-28] MEDS ORDERED: SODIUM CHLORIDE 0.9% 1000ML 1,000 ML IV SCH ×2 (16:15→18:30)
--- NOTE | 2021-08-28 16:19 | Emergency Department Note ---
Impression & Plan Seizure, AMS (altered mental status), Noncompliance with medication regimen, Nausea & vomiting ED Provider Note NAME: PETRA TRAORE AGE: 31 SEX: F : 1990 ARRIVES VIA: Ambulance INFORMANT: Patient, EMS ED PROVIDER(S): Ziggy Barrios DO CHIEF COMPLAINT: Seizure HPI: The patient is a 31-year-old female who presented to emergency department for an evaluation of seizure-like activity. History was obtained through the prehospital personnel as well as indirectly through the significant other. The patient had a seizure prior to arrival. She is unable to give any history at this time. She does follow some commands but does not offer any meaningful information at this time. It is possible she is still postictal. She received Ativan prior to arrival. There is no history of trauma. There is no history of chest pain. We did not obtain any history of medication noncompliance. There is no history of drug use although when the patient is questioned she is admitting to some drug use prior to coming to the emergency department. ROS: See above HPI for pertinent positives & negatives. A total of 10 systems reviewed and were otherwise negative. PAST MEDICAL HISTORY: See Below PAST SURGICAL HISTORY: See Below FAMILY HISTORY: See Below SOCIAL HISTORY: See Below HOME MEDICATIONS: See Below ALLERGIES: See Below VITALS: See Below PHYSICAL EXAMINATION: GENERAL: Patient appears to be somewhat absent and is just looking around the room staring. She does follow commands when redirected. EYES: The conjunctivae are clear. The pupils are round and reactive. EARS, NOSE, MOUTH AND THROAT: The nose is without any evidence of any deformity. Mucous membranes are dry. Gums are hypertrophic. NECK: The neck is nontender and supple. RESPIRATORY: Normal respiratory effort is noted there is no evidence of wheezing rhonchi or rales CARDIOVASCULAR: Regular rate and rhythm noted there no murmurs rubs or gallops normal S1 normal S2. GASTROINTESTINAL: The abdomen was soft and nondistended. There was some tenderness to palpation but no guarding rigidity. MUSCULOSKELETAL/EXTREMITIES: There is no evidence of gross deformity full range of motion is noted in the hips and shoulders. SKIN: Skin is cold and dry. There is no significant pedal edema. NEUROLOGIC: Patient is awake and looking around the room. She does not answer questions fluid is difficult to ascertain orientation at this time. Patellar tendon reflexes were 2+ bilaterally. MEDICAL DECISION MAKING: The patient is a 31-year-old female who presented to emergency department for an evaluation of altered mental status. The patient has a seizure disorder. History was obtained from prehospital personnel as well as the patient's significant other. The patient was not able to give a decent history during the majority of her evaluation. The patient reportedly had a fever. According to her significant other she has been having nausea and vomiting and unwell. She is not been able to keep down her seizure medications. She was treated with IV seizure medication in the emergency department. She was also treated with medication for sedation. The patient was reevaluated multiple times. I discussed the patient's laboratory and radiographic studies with her significant other. Because of her evaluation and the possibility of MOBILE DESIGNER infection the patient was treated with IV antibiotics in the emergency department. Lumbar puncture was obtained but this does not appear to be consistent with MOBILE DESIGNER infection. I discussed her case with the on-call [facility]. They have agreed to evaluate the patient in the emergency department. Triage Nursing notes reviewed. Prior medical records reviewed Vital Signs: reviewed and remarkable for hypotension and tachycardia. Differential diagnosis: Infection, hypoglycemia, electrolyte abnormalities, overdose, toxicologic, cardiac sources, intracerebral event, neurologic, trauma, as well as other pathologies. ER treatment provided: See below Diagnostics interpreted by me: ECG: EKG was obtained in the emergency department. My interpretation is sinus tachycardia 104 bpm. Anterior T wave versions were noted. There is no ectopy appreciated. This was compared to a tracing from November 08, 2019. No changes were noted. Cardiac Monitoring: An order was placed for continuous cardiac monitoring. The monitor shows a rate of 103 bpm with sinus tachycardia. Laboratory studies: As stated above and show below. Imaging studies: See below Consultation(s): I discussed this case with Dr. Alonso who is on-call for the [facility] group. ED COURSE: Procedures: Lumbar Puncture Indication: Altered mental status. Verbal consent was obtained after the risks and benefits were explained, including but not limited to headache, bleeding/clotting, scarring, infection, pain, and bone/joint/nerve damage. At this time, the risks of the procedure are less than the risks of NOT performing the procedure. A time out was taken and the correct patient and site identified. The patient was placed in the seated position and the back was prepped with betadine and draped in the standard fashion. The L3 intervertebral space was identified, anesthetized locally with 1% lidocaine without epinephrine, and the spinal needle was inserted through the skin with the bevel parallel to the dural fibers. The needle was carefully advanced into the lumbar cistern and 4 tubes of clear CSF was obtained. The stylet was replaced and the needle was removed. A bandaid was placed and the patient was placed in the supine position. The patient tolerated the procedure well and there were no complications. Critical Care: I have personally spent greater than 45 minutes of critical care time in the direct management of this patient. This includes bedside care, interpretation of diagnostic studies, and testing, discussion with consultants, patient, and family members, and other required patient management activities. This 45 minutes is in excess of all separately billable procedures. Past Med/Surg History Medical History (Updated 08/28/21 @ 22:48 by Tutu Comer MD) Anxiety Asthma Depression Dystonia Hepatic vein thrombosis Liver lesion, right lobe Pituitary adenoma PVT (portal vein thrombosis) Restless leg syndrome Seizure disorder Surgical History History of dental surgery Hx of tubal ligation Family History Other Hypertension Social History Smoking Status: Unknown if ever smoked Tobacco Type: E-cigarettes / Vaping Preferred Language: Lithuanian Communication Ability: Effective Communication Ability Comment: Unknown, paitent only alert to person. Unable to answer assessment question Anodic Treater Required: No Beliefs That Will Affect Care: None Current Living Situation: Spouse Current Living Situation Comment: Feels Safe at Home: Yes Assistive Devices: None Allergies Allergies Allergy/AdvReac Type Severity Reaction Status Date / Time prednisone AdvReac Intermediate DILANTIN Verified 08/28/21 16:44 TOXICITY sulfamethoxazole AdvReac Intermediate BURNING,ALIX Verified 08/28/21 16:44 RRHEA trimethoprim AdvReac Intermediate BURNING,ALIX Verified 08/28/21 16:44 RRHEA Home Meds Home Medications Medication Instructions Recorded Confirmed lorazepam 1 mg tablet 1 mg PO QID PRN 08/09/18 08/28/21 phenytoin sodium extended 100 mg See Rx Instructions .ROUTE .COMPLEX 08/09/18 08/28/21 capsule (Dilantin Extended) venlafaxine 150 mg 150 mg PO QAM 08/09/18 08/28/21 capsule,extended release 24 hr (Effexor XR) albuterol sulfate 90 mcg/actuation 2 puff INHALATION Q4H PRN 09/03/18 08/28/21 aerosol inhaler (Ventolin HFA) carbamazepine 100 mg chewable 150 mg PO BID 09/03/18 08/28/21 tablet carbamazepine 300 mg 600 mg PO BID 09/03/18 08/28/21 capsule,extended release [id number] (Carbatrol) bisacodyl 10 mg rectal suppository 10 mg ND DAILY PRN 08/28/21 08/28/21 (Dulcolax (bisacodyl)) polyethylene glycol 3350 17 17 g PO DAILY PRN 08/28/21 08/28/21 gram/dose oral powder (Miralax) sennosides 8.6 mg tablet (senna) 8.6 mg PO BID 08/28/21 08/28/21 valacyclovir 500 mg tablet 500 mg PO TID PRN 08/28/21 08/28/21 venlafaxine 75 mg capsule,extended 75 mg PO QAM 08/28/21 08/28/21 release 24 hr Previous Rx's Medication Instructions Recorded ondansetron 4 mg disintegrating 4 mg PO Q6H PRN #20 tab 11/05/19 tablet Results & Data (ED) Vital Signs Vital Signs - 24 hr 08/28/21 15:28 08/28/21 16:01 08/28/21 17:28 Temperature 37.8 C H Temperature Source Oral Pulse Rate 88 Pulse Rate [Apical] 100 H Pulse Rhythm [Apical] Pulse Strength [Apical] Respiratory Rate 18 18 Respiratory Effort / Characteristics Respiratory Depth Blood Pressure 162/81 H Blood Pressure [Right Arm] 111/89 Blood Pressure Mean 108 Blood Pressure Mean [Right Arm] 96 Blood Pressure Position [Right Arm] Pulse Oximetry 96 96 100 Oxygen Delivery Method Room Air Room Air Room Air Sepsis New/Unexplained Change in Mental Status Yes Sepsis Action Taken by Nursing No Action Required Pulse Oximetry Post Tiitration 96 08/28/21 19:00 Temperature Temperature Source Pulse Rate Pulse Rate [Apical] 103 H Pulse Rhythm [Apical] Regular Pulse Strength [Apical] Normal Respiratory Rate 18 Respiratory Effort / Characteristics Non-Labored Spontaneous Respiratory Depth Normal Blood Pressure Blood Pressure [Right Arm] 111/65 Blood Pressure Mean Blood Pressure Mean [Right Arm] 80 Blood Pressure Position [Right Arm] Lying Pulse Oximetry 100 Oxygen Delivery Method Room Air Sepsis New/Unexplained Change in Mental Status Sepsis Action Taken by Nursing Pulse Oximetry Post Tiitration Home Medications Current Medication List: was personally reviewed by me Laboratory Data Attestation: I reviewed the patient's lab results. Result diagrams: 08/29/21 06:36 08/29/21 06:36 Lab Results 08/28/21 08/28/21 08/28/21 Range/Units 16:12 16:12 16:12 WBC 21.63 H (4.8-10.8) K/uL RBC 4.81 (4.2-5.4) M/uL Hgb 15.2 (12.0-16.0) g/dL Hct 43.5 (37-47) % MCV 90.4 (80-100) fL MCH 31.6 (25-34) pg MCHC 34.9 (32-36) g/dL RDW Std Deviation 43.6 (36.4-46.3) fL RDW Coeff of Erika 13.2 (11.5-14.5) % Plt Count 429 H (130-400) K/uL MPV 8.6 (7.4-10.4) fL Immature Gran % (Auto) 0.5 % Neut % (Auto) 90.9 % Lymph % (Auto) 2.8 % Ector % (Auto) 5.8 % Eos % (Auto) 0.0 % Baso % (Auto) 0.0 % Neut # (Auto) 19.67 H (1.4-6.5) K/uL Lymph # (Auto) 0.61 L (1.2-3.4) K/uL Ector # (Auto) 1.25 H (0.11-0.59) K/uL Eos # (Auto) 0.00 (0-0.5) K/uL Baso # (Auto) 0.00 (0-0.2) K/uL Immature Gran # (Auto) 0.10 H (0.00-0.02) K/uL PT 11.9 (9.0-12.0) Seconds INR 1.1 (0.9-1.1) APTT 25.3 (21.0-31.0) Seconds PTT Ratio 0.9 VBG pH (7.36-7.41) VBG pCO2 (38-50) mmHg VBG pO2 mmHg VBG HCO3 mmol/L VBG O2 Saturation % VBG Base Excess mEq/L Barometric Pressure mm/Hg Sodium (136-145) mmol/L Potassium (3.5-5.1) mmol/L Chloride (98-107) mmol/L Carbon Dioxide (21-32) mmol/L Anion Gap (3-11) BUN (6-23) mg/dl Creatinine (0.6-1.2) mg/dl Est Cr Clr Drug Dosing Est GFR ( Amer) ml/min Est GFR (Non-Af Amer) ml/min BUN/Creatinine Ratio (10-20) Glucose (70-99(Fasting)) mg/dl Lactate 2.2 H* (0.4-2.0) mmol/L Calcium (8.5-10.1) mg/dl Magnesium (1.7-2.4) mg/dl Total Bilirubin (0.2-1.0) mg/dl AST (13-39) U/L ALT (7-52) U/L Alkaline Phosphatase (34-104) U/L Total Creatine Kinase (26-192) U/L Troponin I (0-0.04) ng/ml Total Protein (6.0-8.3) gm/dl Albumin (3.4-5.0) gm/dl Globulin (2.5-4.0) gm/dl Albumin/Globulin Ratio (0.9-2) Lipase (11-82) U/L Procalcitonin (0-0.5) ng/ml Prolactin ng/ml HCG, Qual (Negative) Urine Color Urine Appearance (Clear) Urine pH (4.5-7.5) Ur Specific [place] (1.000-1.030) Urine Protein (Negative) Urine Glucose (UA) (Negative) Urine Ketones (Negative) Urine Blood (Negative) Urine Nitrite (Negative) Urine Bilirubin (Negative) Urine Urobilinogen (Negative) Ur Leukocyte Esterase (Negative) Urine WBC (Auto) (0-5) /hpf Urine RBC (Auto) (0-4) /hpf U Hyaline Cast (Auto) (0-5) /lpf U Epithel Cells (Auto) (0-5) /lpf Urine Bacteria (Auto) (Negative) Fluid Comment CSF Appearance CSF Color Xanthrochromic CSF WBC (0-5) /uL CSF RBC (0-) /uL CSF Cell Count Tube # CSF Chemistry Tube # CSF Glucose (40-70) mg/dl CSF Total Protein (15-45) mg/dl CSF C.neoform/gat PCR (NotDetected) CSF CMV DNA (PCR) (NotDetected) CSF Enterovirus (PCR) (NotDetected) CSF E. coli K1 (PCR) (NotDetected) CSF H. influenzae (PCR) (NotDetected) CSF HSV I (PCR) (NotDetected) CSF HSV II (PCR) (NotDetected) CSF HHV 6 (PCR) (NotDetected) CSF L.monocytogenes PCR (NotDetected) CSF N. meningitidis PCR (NotDetected) CSF Parechovirus (PCR) (NotDetected) CSF S. agalactiae (PCR) (NotDetected) CSF S. pneumoniae (PCR) (NotDetected) CSF VZV DNA (PCR) (NotDetected) Salicylates (3.0-30) mg/dl Urine Opiates Screen (Neg) Ur Methadone, Qual (Neg) Acetaminophen (10-30) ug/ml Urine Barbiturates (Neg) Phenytoin (10-20) mcg/ml Carbamazepine (4-12) mcg/ml Ur Phencyclidine (PCP) (Neg) U Amphetamin/Meth Scrn (Neg) MDMA (Ecstasy) Screen (Neg) U Benzodiazepines Scrn (Neg) Ur Cocaine Metabolite (Neg) U Marijuana (THC) Screen (Neg) Ethyl Alcohol mg/dL (<10.0) mg/dl Lyme Disease IgG Ab (Negative) Lyme Disease IgM Ab (Negative) SARS-CoV-2, RNA, NAAT (NEGATIVE) 08/28/21 08/28/21 08/28/21 Range/Units 16:12 16:12 16:12 WBC (4.8-10.8) K/uL RBC (4.2-5.4) M/uL Hgb (12.0-16.0) g/dL Hct (37-47) % MCV (80-100) fL MCH (25-34) pg MCHC (32-36) g/dL RDW Std Deviation (36.4-46.3) fL RDW Coeff of Erika (11.5-14.5) % Plt Count (130-400) K/uL MPV (7.4-10.4) fL Immature Gran % (Auto) % Neut % (Auto) % Lymph % (Auto) % Ector % (Auto) % Eos % (Auto) % Baso % (Auto) % Neut # (Auto) (1.4-6.5) K/uL Lymph # (Auto) (1.2-3.4) K/uL Ector # (Auto) (0.11-0.59) K/uL Eos # (Auto) (0-0.5) K/uL Baso # (Auto) (0-0.2) K/uL Immature Gran # (Auto) (0.00-0.02) K/uL PT (9.0-12.0) Seconds INR (0.9-1.1) APTT (21.0-31.0) Seconds PTT Ratio VBG pH (7.36-7.41) VBG pCO2 (38-50) mmHg VBG pO2 mmHg VBG HCO3 mmol/L VBG O2 Saturation % VBG Base Excess mEq/L Barometric Pressure mm/Hg Sodium 138 (136-145) mmol/L Potassium 4.0 (3.5-5.1) mmol/L Chloride 101 (98-107) mmol/L Carbon Dioxide 17 L (21-32) mmol/L Anion Gap 20 H (3-11) BUN 13 (6-23) mg/dl Creatinine 0.73 (0.6-1.2) mg/dl Est Cr Clr Drug Dosing Not Reportable Est GFR ( Amer) 125.4 ml/min Est GFR (Non-Af Amer) 108.2 ml/min BUN/Creatinine Ratio 17.8 (10-20) Glucose 93 (70-99(Fasting)) mg/dl Lactate (0.4-2.0) mmol/L Calcium 10.1 (8.5-10.1) mg/dl Magnesium 2.2 (1.7-2.4) mg/dl Total Bilirubin 0.8 (0.2-1.0) mg/dl AST 24 (13-39) U/L ALT 19 (7-52) U/L Alkaline Phosphatase 132 H (34-104) U/L Total Creatine Kinase 103 (26-192) U/L Troponin I < 0.03 (0-0.04) ng/ml Total Protein 8.6 H (6.0-8.3) gm/dl Albumin 4.8 (3.4-5.0) gm/dl Globulin 3.8 (2.5-4.0) gm/dl Albumin/Globulin Ratio 1.3 (0.9-2) Lipase 8 L (11-82) U/L Procalcitonin (0-0.5) ng/ml Prolactin 5.36 ng/ml HCG, Qual (Negative) Urine Color Urine Appearance (Clear) Urine pH (4.5-7.5) Ur Specific [place] (1.000-1.030) Urine Protein (Negative) Urine Glucose (UA) (Negative) Urine Ketones (Negative) Urine Blood (Negative) Urine Nitrite (Negative) Urine Bilirubin (Negative) Urine Urobilinogen (Negative) Ur Leukocyte Esterase (Negative) Urine WBC (Auto) (0-5) /hpf Urine RBC (Auto) (0-4) /hpf U Hyaline Cast (Auto) (0-5) /lpf U Epithel Cells (Auto) (0-5) /lpf Urine Bacteria (Auto) (Negative) Fluid Comment CSF Appearance CSF Color Xanthrochromic CSF WBC (0-5) /uL CSF RBC (0-) /uL CSF Cell Count Tube # CSF Chemistry Tube # CSF Glucose (40-70) mg/dl CSF Total Protein (15-45) mg/dl CSF C.neoform/gat PCR (NotDetected) CSF CMV DNA (PCR) (NotDetected) CSF Enterovirus (PCR) (NotDetected) CSF E. coli K1 (PCR) (NotDetected) CSF H. influenzae (PCR) (NotDetected) CSF HSV I (PCR) (NotDetected) CSF HSV II (PCR) (NotDetected) CSF HHV 6 (PCR) (NotDetected) CSF L.monocytogenes PCR (NotDetected) CSF N. meningitidis PCR (NotDetected) CSF Parechovirus (PCR) (NotDetected) CSF S. agalactiae (PCR) (NotDetected) CSF S. pneumoniae (PCR) (NotDetected) CSF VZV DNA (PCR) (NotDetected) Salicylates < 3.0 L (3.0-30) mg/dl Urine Opiates Screen (Neg) Ur Methadone, Qual (Neg) Acetaminophen < 3 L (10-30) ug/ml Urine Barbiturates (Neg) Phenytoin < 3.0 L (10-20) mcg/ml Carbamazepine 3.3 L (4-12) mcg/ml Ur Phencyclidine (PCP) (Neg) U Amphetamin/Meth Scrn (Neg) MDMA (Ecstasy) Screen (Neg) U Benzodiazepines Scrn (Neg) Ur Cocaine Metabolite (Neg) U Marijuana (THC) Screen (Neg) Ethyl Alcohol mg/dL (<10.0) mg/dl Lyme Disease IgG Ab (Negative) Lyme Disease IgM Ab (Negative) SARS-CoV-2, RNA, NAAT (NEGATIVE) 08/28/21 08/28/21 08/28/21 Range/Units 16:12 16:12 16:12 WBC (4.8-10.8) K/uL RBC (4.2-5.4) M/uL Hgb (12.0-16.0) g/dL Hct (37-47) % MCV (80-100) fL MCH (25-34) pg MCHC (32-36) g/dL RDW Std Deviation (36.4-46.3) fL RDW Coeff of Erika (11.5-14.5) % Plt Count (130-400) K/uL MPV (7.4-10.4) fL Immature Gran % (Auto) % Neut % (Auto) % Lymph % (Auto) % Ector % (Auto) % Eos % (Auto) % Baso % (Auto) % Neut # (Auto) (1.4-6.5) K/uL Lymph # (Auto) (1.2-3.4) K/uL Ector # (Auto) (0.11-0.59) K/uL Eos # (Auto) (0-0.5) K/uL Baso # (Auto) (0-0.2) K/uL Immature Gran # (Auto) (0.00-0.02) K/uL PT (9.0-12.0) Seconds INR (0.9-1.1) APTT (21.0-31.0) Seconds PTT Ratio VBG pH (7.36-7.41) VBG pCO2 (38-50) mmHg VBG pO2 mmHg VBG HCO3 mmol/L VBG O2 Saturation % VBG Base Excess mEq/L Barometric Pressure mm/Hg Sodium (136-145) mmol/L Potassium (3.5-5.1) mmol/L Chloride (98-107) mmol/L Carbon Dioxide (21-32) mmol/L Anion Gap (3-11) BUN (6-23) mg/dl Creatinine (0.6-1.2) mg/dl Est Cr Clr Drug Dosing Est GFR ( Amer) ml/min Est GFR (Non-Af Amer) ml/min BUN/Creatinine Ratio (10-20) Glucose (70-99(Fasting)) mg/dl Lactate (0.4-2.0) mmol/L Calcium (8.5-10.1) mg/dl Magnesium (1.7-2.4) mg/dl Total Bilirubin (0.2-1.0) mg/dl AST (13-39) U/L ALT (7-52) U/L Alkaline Phosphatase (34-104) U/L Total Creatine Kinase (26-192) U/L Troponin I (0-0.04) ng/ml Total Protein (6.0-8.3) gm/dl Albumin (3.4-5.0) gm/dl Globulin (2.5-4.0) gm/dl Albumin/Globulin Ratio (0.9-2) Lipase (11-82) U/L Procalcitonin < 0.05 (0-0.5) ng/ml Prolactin ng/ml HCG, Qual Negative (Negative) Urine Color Urine Appearance (Clear) Urine pH (4.5-7.5) Ur Specific [place] (1.000-1.030) Urine Protein (Negative) Urine Glucose (UA) (Negative) Urine Ketones (Negative) Urine Blood (Negative) Urine Nitrite (Negative) Urine Bilirubin (Negative) Urine Urobilinogen (Negative) Ur Leukocyte Esterase (Negative) Urine WBC (Auto) (0-5) /hpf Urine RBC (Auto) (0-4) /hpf U Hyaline Cast (Auto) (0-5) /lpf U Epithel Cells (Auto) (0-5) /lpf Urine Bacteria (Auto) (Negative) Fluid Comment CSF Appearance CSF Color Xanthrochromic CSF WBC (0-5) /uL CSF RBC (0-) /uL CSF Cell Count Tube # CSF Chemistry Tube # CSF Glucose (40-70) mg/dl CSF Total Protein (15-45) mg/dl CSF C.neoform/gat PCR (NotDetected) CSF CMV DNA (PCR) (NotDetected) CSF Enterovirus (PCR) (NotDetected) CSF E. coli K1 (PCR) (NotDetected) CSF H. influenzae (PCR) (NotDetected) CSF HSV I (PCR) (NotDetected) CSF HSV II (PCR) (NotDetected) CSF HHV 6 (PCR) (NotDetected) CSF L.monocytogenes PCR (NotDetected) CSF N. meningitidis PCR (NotDetected) CSF Parechovirus (PCR) (NotDetected) CSF S. agalactiae (PCR) (NotDetected) CSF S. pneumoniae (PCR) (NotDetected) CSF VZV DNA (PCR) (NotDetected) Salicylates (3.0-30) mg/dl Urine Opiates Screen (Neg) Ur Methadone, Qual (Neg) Acetaminophen (10-30) ug/ml Urine Barbiturates (Neg) Phenytoin (10-20) mcg/ml Carbamazepine (4-12) mcg/ml Ur Phencyclidine (PCP) (Neg) U Amphetamin/Meth Scrn (Neg) MDMA (Ecstasy) Screen (Neg) U Benzodiazepines Scrn (Neg) Ur Cocaine Metabolite (Neg) U Marijuana (THC) Screen (Neg) Ethyl Alcohol mg/dL < 10.0 (<10.0) mg/dl Lyme Disease IgG Ab (Negative) Lyme Disease IgM Ab (Negative) SARS-CoV-2, RNA, NAAT (NEGATIVE) 08/28/21 08/28/21 08/28/21 Range/Units 16:12 16:25 16:25 WBC (4.8-10.8) K/uL RBC (4.2-5.4) M/uL Hgb (12.0-16.0) g/dL Hct (37-47) % MCV (80-100) fL MCH (25-34) pg MCHC (32-36) g/dL RDW Std Deviation (36.4-46.3) fL RDW Coeff of Erika (11.5-14.5) % Plt Count (130-400) K/uL MPV (7.4-10.4) fL Immature Gran % (Auto) % Neut % (Auto) % Lymph % (Auto) % Ector % (Auto) % Eos % (Auto) % Baso % (Auto) % Neut # (Auto) (1.4-6.5) K/uL Lymph # (Auto) (1.2-3.4) K/uL Ector # (Auto) (0.11-0.59) K/uL Eos # (Auto) (0-0.5) K/uL Baso # (Auto) (0-0.2) K/uL Immature Gran # (Auto) (0.00-0.02) K/uL PT (9.0-12.0) Seconds INR (0.9-1.1) APTT (21.0-31.0) Seconds PTT Ratio VBG pH (7.36-7.41) VBG pCO2 (38-50) mmHg VBG pO2 mmHg VBG HCO3 mmol/L VBG O2 Saturation % VBG Base Excess mEq/L Barometric Pressure mm/Hg Sodium (136-145) mmol/L Potassium (3.5-5.1) mmol/L Chloride (98-107) mmol/L Carbon Dioxide (21-32) mmol/L Anion Gap (3-11) BUN (6-23) mg/dl Creatinine (0.6-1.2) mg/dl Est Cr Clr Drug Dosing Est GFR ( Amer) ml/min Est GFR (Non-Af Amer) ml/min BUN/Creatinine Ratio (10-20) Glucose (70-99(Fasting)) mg/dl Lactate (0.4-2.0) mmol/L Calcium (8.5-10.1) mg/dl Magnesium (1.7-2.4) mg/dl Total Bilirubin (0.2-1.0) mg/dl AST (13-39) U/L ALT (7-52) U/L Alkaline Phosphatase (34-104) U/L Total Creatine Kinase (26-192) U/L Troponin I (0-0.04) ng/ml Total Protein (6.0-8.3) gm/dl Albumin (3.4-5.0) gm/dl Globulin (2.5-4.0) gm/dl Albumin/Globulin Ratio (0.9-2) Lipase (11-82) U/L Procalcitonin (0-0.5) ng/ml Prolactin ng/ml HCG, Qual (Negative) Urine Color Dark Yellow Urine Appearance Clear (Clear) Urine pH 6.0 (4.5-7.5) Ur Specific [place] 1.032 H (1.000-1.030) Urine Protein 1+ H (Negative) Urine Glucose (UA) Negative (Negative) Urine Ketones 4+ H (Negative) Urine Blood Trace H (Negative) Urine Nitrite Negative (Negative) Urine Bilirubin Negative (Negative) Urine Urobilinogen Negative (Negative) Ur Leukocyte Esterase Negative (Negative) Urine WBC (Auto) 0 (0-5) /hpf Urine RBC (Auto) 5-10 H (0-4) /hpf U Hyaline Cast (Auto) 1-5 (0-5) /lpf U Epithel Cells (Auto) 20-30 H (0-5) /lpf Urine Bacteria (Auto) Negative (Negative) Fluid Comment CSF Appearance CSF Color Xanthrochromic CSF WBC (0-5) /uL CSF RBC (0-) /uL CSF Cell Count Tube # CSF Chemistry Tube # CSF Glucose (40-70) mg/dl CSF Total Protein (15-45) mg/dl CSF C.neoform/gat PCR (NotDetected) CSF CMV DNA (PCR) (NotDetected) CSF Enterovirus (PCR) (NotDetected) CSF E. coli K1 (PCR) (NotDetected) CSF H. influenzae (PCR) (NotDetected) CSF HSV I (PCR) (NotDetected) CSF HSV II (PCR) (NotDetected) CSF HHV 6 (PCR) (NotDetected) CSF L.monocytogenes PCR (NotDetected) CSF N. meningitidis PCR (NotDetected) CSF Parechovirus (PCR) (NotDetected) CSF S. agalactiae (PCR) (NotDetected) CSF S. pneumoniae (PCR) (NotDetected) CSF VZV DNA (PCR) (NotDetected) Salicylates (3.0-30) mg/dl Urine Opiates Screen Neg (Neg) Ur Methadone, Qual Neg (Neg) Acetaminophen (10-30) ug/ml Urine Barbiturates Neg (Neg) Phenytoin (10-20) mcg/ml Carbamazepine (4-12) mcg/ml Ur Phencyclidine (PCP) Neg (Neg) U Amphetamin/Meth Scrn Neg (Neg) MDMA (Ecstasy) Screen Neg (Neg) U Benzodiazepines Scrn Neg (Neg) Ur Cocaine Metabolite Neg (Neg) U Marijuana (THC) Screen Pos H (Neg) Ethyl Alcohol mg/dL (<10.0) mg/dl Lyme Disease IgG Ab Negative (Negative) Lyme Disease IgM Ab Negative (Negative) SARS-CoV-2, RNA, NAAT (NEGATIVE) 08/28/21 08/28/21 08/28/21 Range/Units 16:35 17:39 18:15 WBC (4.8-10.8) K/uL RBC (4.2-5.4) M/uL Hgb (12.0-16.0) g/dL Hct (37-47) % MCV (80-100) fL MCH (25-34) pg MCHC (32-36) g/dL RDW Std Deviation (36.4-46.3) fL RDW Coeff of Erika (11.5-14.5) % Plt Count (130-400) K/uL MPV (7.4-10.4) fL Immature Gran % (Auto) % Neut % (Auto) % Lymph % (Auto) % Ector % (Auto) % Eos % (Auto) % Baso % (Auto) % Neut # (Auto) (1.4-6.5) K/uL Lymph # (Auto) (1.2-3.4) K/uL Ector # (Auto) (0.11-0.59) K/uL Eos # (Auto) (0-0.5) K/uL Baso # (Auto) (0-0.2) K/uL Immature Gran # (Auto) (0.00-0.02) K/uL PT (9.0-12.0) Seconds INR (0.9-1.1) APTT (21.0-31.0) Seconds PTT Ratio VBG pH 7.48 H (7.36-7.41) VBG pCO2 26 L (38-50) mmHg VBG pO2 24 mmHg VBG HCO3 19 mmol/L VBG O2 Saturation < 60.0 % VBG Base Excess -2.4 mEq/L Barometric Pressure 733.8 mm/Hg Sodium (136-145) mmol/L Potassium (3.5-5.1) mmol/L Chloride (98-107) mmol/L Carbon Dioxide (21-32) mmol/L Anion Gap (3-11) BUN (6-23) mg/dl Creatinine (0.6-1.2) mg/dl Est Cr Clr Drug Dosing Est GFR ( Amer) ml/min Est GFR (Non-Af Amer) ml/min BUN/Creatinine Ratio (10-20) Glucose (70-99(Fasting)) mg/dl Lactate 0.9 (0.4-2.0) mmol/L Calcium (8.5-10.1) mg/dl Magnesium (1.7-2.4) mg/dl Total Bilirubin (0.2-1.0) mg/dl AST (13-39) U/L ALT (7-52) U/L Alkaline Phosphatase (34-104) U/L Total Creatine Kinase (26-192) U/L Troponin I (0-0.04) ng/ml Total Protein (6.0-8.3) gm/dl Albumin (3.4-5.0) gm/dl Globulin (2.5-4.0) gm/dl Albumin/Globulin Ratio (0.9-2) Lipase (11-82) U/L Procalcitonin (0-0.5) ng/ml Prolactin ng/ml HCG, Qual (Negative) Urine Color Urine Appearance (Clear) Urine pH (4.5-7.5) Ur Specific [place] (1.000-1.030) Urine Protein (Negative) Urine Glucose (UA) (Negative) Urine Ketones (Negative) Urine Blood (Negative) Urine Nitrite (Negative) Urine Bilirubin (Negative) Urine Urobilinogen (Negative) Ur Leukocyte Esterase (Negative) Urine WBC (Auto) (0-5) /hpf Urine RBC (Auto) (0-4) /hpf U Hyaline Cast (Auto) (0-5) /lpf U Epithel Cells (Auto) (0-5) /lpf Urine Bacteria (Auto) (Negative) Fluid Comment CSF Appearance CSF Color Xanthrochromic CSF WBC (0-5) /uL CSF RBC (0-) /uL CSF Cell Count Tube # CSF Chemistry Tube # CSF Glucose (40-70) mg/dl CSF Total Protein (15-45) mg/dl CSF C.neoform/gat PCR (NotDetected) CSF CMV DNA (PCR) (NotDetected) CSF Enterovirus (PCR) (NotDetected) CSF E. coli K1 (PCR) (NotDetected) CSF H. influenzae (PCR) (NotDetected) CSF HSV I (PCR) (NotDetected) CSF HSV II (PCR) (NotDetected) CSF HHV 6 (PCR) (NotDetected) CSF L.monocytogenes PCR (NotDetected) CSF N. meningitidis PCR (NotDetected) CSF Parechovirus (PCR) (NotDetected) CSF S. agalactiae (PCR) (NotDetected) CSF S. pneumoniae (PCR) (NotDetected) CSF VZV DNA (PCR) (NotDetected) Salicylates (3.0-30) mg/dl Urine Opiates Screen (Neg) Ur Methadone, Qual (Neg) Acetaminophen (10-30) ug/ml Urine Barbiturates (Neg) Phenytoin (10-20) mcg/ml Carbamazepine (4-12) mcg/ml Ur Phencyclidine (PCP) (Neg) U Amphetamin/Meth Scrn (Neg) MDMA (Ecstasy) Screen (Neg) U Benzodiazepines Scrn (Neg) Ur Cocaine Metabolite (Neg) U Marijuana (THC) Screen (Neg) Ethyl Alcohol mg/dL (<10.0) mg/dl Lyme Disease IgG Ab (Negative) Lyme Disease IgM Ab (Negative) SARS-CoV-2, RNA, NAAT NEGATIVE (NEGATIVE) 08/28/21 08/28/21 08/28/21 Range/Units 18:30 18:30 18:30 WBC (4.8-10.8) K/uL RBC (4.2-5.4) M/uL Hgb (12.0-16.0) g/dL Hct (37-47) % MCV (80-100) fL MCH (25-34) pg MCHC (32-36) g/dL RDW Std Deviation (36.4-46.3) fL RDW Coeff of Erika (11.5-14.5) % Plt Count (130-400) K/uL MPV (7.4-10.4) fL Immature Gran % (Auto) % Neut % (Auto) % Lymph % (Auto) % [place] % (Auto) % Eos % (Auto) % Baso % (Auto) % Neut # (Auto) (1.4-6.5) K/uL Lymph # (Auto) (1.2-3.4) K/uL [place] # (Auto) (0.11-0.59) K/uL Eos # (Auto) (0-0.5) K/uL Baso # (Auto) (0-0.2) K/uL Immature Gran # (Auto) (0.00-0.02) K/uL PT (9.0-12.0) Seconds INR (0.9-1.1) APTT (21.0-31.0) Seconds PTT Ratio VBG pH (7.36-7.41) VBG pCO2 (38-50) mmHg VBG pO2 mmHg VBG HCO3 mmol/L VBG O2 Saturation % VBG Base Excess mEq/L Barometric Pressure mm/Hg Sodium (136-145) mmol/L Potassium (3.5-5.1) mmol/L Chloride (98-107) mmol/L Carbon Dioxide (21-32) mmol/L Anion Gap (3-11) BUN (6-23) mg/dl Creatinine (0.6-1.2) mg/dl Est Cr Clr Drug Dosing Est GFR ( Amer) ml/min Est GFR (Non-Af Amer) ml/min BUN/Creatinine Ratio (10-20) Glucose (70-99(Fasting)) mg/dl Lactate (0.4-2.0) mmol/L Calcium (8.5-10.1) mg/dl Magnesium (1.7-2.4) mg/dl Total Bilirubin (0.2-1.0) mg/dl AST (13-39) U/L ALT (7-52) U/L Alkaline Phosphatase (34-104) U/L Total Creatine Kinase (26-192) U/L Troponin I (0-0.04) ng/ml Total Protein (6.0-8.3) gm/dl Albumin (3.4-5.0) gm/dl Globulin (2.5-4.0) gm/dl Albumin/Globulin Ratio (0.9-2) Lipase (11-82) U/L Procalcitonin (0-0.5) ng/ml Prolactin ng/ml HCG, Qual (Negative) Urine Color Urine Appearance (Clear) Urine pH (4.5-7.5) Ur Specific [place] (1.000-1.030) Urine Protein (Negative) Urine Glucose (UA) (Negative) Urine Ketones (Negative) Urine Blood (Negative) Urine Nitrite (Negative) Urine Bilirubin (Negative) Urine Urobilinogen (Negative) Ur Leukocyte Esterase (Negative) Urine WBC (Auto) (0-5) /hpf Urine RBC (Auto) (0-4) /hpf U Hyaline Cast (Auto) (0-5) /lpf U Epithel Cells (Auto) (0-5) /lpf Urine Bacteria (Auto) (Negative) Fluid Comment CSF Appearance Clear CSF Color Colorless Xanthrochromic No xanthochromia CSF WBC 1 (0-5) /uL CSF RBC 0 (0-) /uL CSF Cell Count Tube # 3 CSF Chemistry Tube # 3 CSF Glucose 73 H (40-70) mg/dl CSF Total Protein 50.1 H (15-45) mg/dl CSF C.neoform/gat PCR Not Detected (NotDetected) CSF CMV DNA (PCR) Not Detected (NotDetected) CSF Enterovirus (PCR) Not Detected (NotDetected) CSF E. coli K1 (PCR) Not Detected (NotDetected) CSF H. influenzae (PCR) Not Detected (NotDetected) CSF HSV I (PCR) Not Detected (NotDetected) CSF HSV II (PCR) Not Detected (NotDetected) CSF HHV 6 (PCR) Not Detected (NotDetected) CSF L.monocytogenes PCR Not Detected (NotDetected) CSF N. meningitidis PCR Not Detected (NotDetected) CSF Parechovirus (PCR) Not Detected (NotDetected) CSF S. agalactiae (PCR) Not Detected (NotDetected) CSF S. pneumoniae (PCR) Not Detected (NotDetected) CSF VZV DNA (PCR) Not Detected (NotDetected) Salicylates (3.0-30) mg/dl Urine Opiates Screen (Neg) Ur Methadone, Qual (Neg) Acetaminophen (10-30) ug/ml Urine Barbiturates (Neg) Phenytoin (10-20) mcg/ml Carbamazepine (4-12) mcg/ml Ur Phencyclidine (PCP) (Neg) U Amphetamin/Meth Scrn (Neg) MDMA (Ecstasy) Screen (Neg) U Benzodiazepines Scrn (Neg) Ur Cocaine Metabolite (Neg) U Marijuana (THC) Screen (Neg) Ethyl Alcohol mg/dL (<10.0) mg/dl Lyme Disease IgG Ab (Negative) Lyme Disease IgM Ab (Negative) SARS-CoV-2, RNA, NAAT (NEGATIVE) Administered Medications Acetaminophen (Acetaminophen 325 Mg Tab) 650 mg PO Q4H PRN PRN Reason: Pain or Fever Stop: 09/27/21 22:09 Last Admin: 08/29/21 14:41 Dose: 650 mg Documented by: [id number] Carbamazepine (Carbamazepine 100 Mg Chew Tab) 150 mg PO BID [facility] Stop: 09/27/21 22:09 Last Admin: 08/29/21 08:09 Dose: 150 mg Documented by: [id number] Admin: 08/28/21 23:03 Dose: 150 mg Documented by: [id number] Carbamazepine (Carbamazepine 200 Mg Tabcr) 600 mg PO BID [facility] Stop: 09/27/21 22:29 Last Admin: 08/29/21 08:10 Dose: 600 mg Documented by: [id number] Admin: 08/28/21 23:01 Dose: 600 mg Documented by: [id number] Enoxaparin Sodium (Enoxaparin Inj 40 Mg/0.4 Ml Syr) 40 mg SQ QAM [facility] Stop: 09/28/21 08:59 Last Admin: 08/29/21 08:10 Dose: Not Given Documented by: [id number] Acyclovir Sodium 600 mg/ (Dextrose) 112 mls @ 100 mls/hr IV Q8H [facility]; Protocol Stop: 09/08/21 10:44 Last Infusion: 08/29/21 14:15 Dose: 0 mls/hr Documented by: [id number] Admin: 08/29/21 13:00 Dose: 100 mls/hr Documented by: [id number] Lorazepam (Lorazepam 0.5 Mg Tab) 0.5 mg PO Q8H PRN PRN Reason: Anxiety Stop: 09/28/21 14:07 Last Admin: 08/29/21 14:41 Dose: 0.5 mg Documented by: [id number] Phenytoin Sodium (Phenytoin Sodium Er 100 Mg Cap) 200 mg PO HS [facility] Stop: 09/27/21 22:29 Last Admin: 08/28/21 23:02 Dose: 200 mg Documented by: [id number] Venlafaxine HCl (Venlafaxine Hcl Xr 75 Mg Capxr) 75 mg PO QA [facility] Stop: 09/28/21 08:59 Last Admin: 08/29/21 08:09 Dose: 75 mg Documented by: [id number] Venlafaxine HCl (Venlafaxine Hcl Xr 150 Mg Capxr) 150 mg PO QAWW [facility] Stop: 09/28/21 08:59 Last Admin: 08/29/21 08:09 Dose: 150 mg Documented by: [id number] Discontinued Medications Dexamethasone Sodium Phosphate (DexamethasonePf 10 Mg/Ml Vial) 10 mg IV NOW ONE Stop: 08/28/21 18:01 Last Admin: 08/28/21 18:56 Dose: 10 mg Documented by: [id number] Haloperidol Lactate (Haloperidol Lactate 5 Mg/Ml 1 Ml Vial) 5 mg IM NOW STA Stop: 08/28/21 18:00 Last Admin: 08/28/21 18:11 Dose: 5 mg Documented by: [id number] Sodium Chloride (Nss 1000ml) 1,000 mls @ 999 mls/hr IV .Q1H1M [facility] Stop: 08/28/21 17:15 Last Infusion: 08/28/21 18:00 Dose: 0 mls/hr Documented by: [id number] Admin: 08/28/21 16:31 Dose: 999 mls/hr Documented by: [id number] Sodium Chloride (Nss 1000ml) 1,000 mls @ 999 mls/hr IV .Q1H1M ONE Stop: 08/28/21 18:14 Last Infusion: 08/28/21 18:50 Dose: 0 mls/hr Documented by: [id number] Admin: 08/28/21 17:33 Dose: 999 mls/hr Documented by: [id number] Fosphenytoin Sodium 1,000 mgpe (/ Sodium Chloride) 70 mls @ 420 mls/hr IV NOW STA Stop: 08/28/21 17:32 Last Infusion: 08/28/21 18:50 Dose: 0 mls/hr Documented by: [id number] Admin: 08/28/21 17:48 Dose: 420 mls/hr Documented by: [id number] Ceftriaxone Sodium (Rocephin) 2,000 mg in 70 mls @ 140 mls/hr IV NOW STA Stop: 08/28/21 18:28 Last Infusion: 08/28/21 19:40 Dose: 0 mls/hr Documented by: [id number] Admin: 08/28/21 18:55 Dose: 140 mls/hr Documented by: [id number] Vancomycin HCl 1,500 mg/ (Sodium Chloride) 530 mls @ 200 mls/hr IV NOW ONE Stop: 08/28/21 20:37 Last Infusion: 08/28/21 23:39 Dose: 0 mls/hr Documented by: [id number] Admin: 08/28/21 19:55 Dose: 200 mls/hr Documented by: [id number] Sodium Chloride (Nss 1000ml) 1,000 mls @ 999 mls/hr IV .Q1H1M [facility] Stop: 08/28/21 19:30 Last Infusion: 08/28/21 23:39 Dose: 0 mls/hr Documented by: [id number] Admin: 08/28/21 19:52 Dose: 999 mls/hr Documented by: [id number] Fosphenytoin Sodium 1,000 mgpe (/ Sodium Chloride) 70 mls @ 420 mls/hr IV NOW STA Stop: 08/28/21 19:07 Last Infusion: 08/28/21 20:20 Dose: 0 mls/hr Documented by: [id number] Admin: 08/28/21 20:07 Dose: 420 mls/hr Documented by: [id number] Sodium Chloride (Nss 1000ml) 1,000 mls @ 100 mls/hr IV .Q10H ONE Stop: 08/29/21 06:13 Last Infusion: 08/29/21 08:34 Dose: 0 mls/hr Documented by: [id number] Admin: 08/28/21 22:29 Dose: 100 mls/hr Documented by: [id number] Acyclovir Sodium 700 mg/ (Dextrose) 114 mls @ 100 mls/hr IV ONE ONE Stop: 08/28/21 21:53 Last Infusion: 08/28/21 23:39 Dose: 0 mls/hr Documented by: [id number] Admin: 08/28/21 22:27 Dose: 100 mls/hr Documented by: [id number] Acyclovir Sodium 650 mg/ (Dextrose) 113 mls @ 100 mls/hr IV Q8H [facility]; Protocol Stop: 09/08/21 05:59 Last Infusion: 08/29/21 07:35 Dose: 0 mls/hr Documented by: [id number] Admin: 08/29/21 06:13 Dose: 100 mls/hr Documented by: [id number] Ketorolac Tromethamine (Ketorolac Tromethamine 15 Mg/Ml Vial) 15 mg IV NOW ONE Stop: 08/28/21 19:37 Last Admin: 08/28/21 20:00 Dose: 15 mg Documented by: [id number] Lorazepam (Lorazepam 2 Mg/1 Ml Vial) 1 mg IV NOW STA Stop: 08/28/21 16:02 Last Admin: 08/28/21 16:30 Dose: 1 mg Documented by: [id number] Lorazepam (Lorazepam 2 Mg/1 Ml Vial) 1 mg IV NOW STA Stop: 08/28/21 18:00 Last Admin: 08/29/21 09:36 Dose: Not Given Documented by: [id number] Lorazepam (Lorazepam 0.5 Mg Tab) 0.5 mg PO NOW STA Stop: 08/29/21 09:11 Last Admin: 08/29/21 09:20 Dose: 0.5 mg Documented by: [id number] Sennosides (Senna 8.6 Mg Tab) 8.6 mg PO BID [facility] Stop: 09/27/21 22:09 Last Admin: 08/28/21 23:02 Dose: 8.6 mg Documented by: [id number] Imaging Data Radiologist's Impression: Abdomen/Pelvis CT 08/28/21 16:[address] WITHOUT CONTRAST HISTORY: Acute generalized abdominal pain AMS TECHNIQUE: Multiaxial CT images of the abdomen and pelvis were performed without contrast. A dose lowering technique was utilized adhering to the principles of ALARA. COMPARISON STUDY: 09/24/2018 FINDINGS: Respiratory motion artifact limits the study. The study is also limited secondary to upper extremity positioning and lack of contrast. Clear lung bases. No pneumatosis or pneumoperitoneum. The unenhanced spleen, pancreas, adrenal glands, gallbladder and liver appear unremarkable. The previous noted 1.5 cm lesion of the inferior right hepatic lobe is better seen on the comparison study. Unremarkable kidneys. No hydronephrosis. 4 mm calcification along the posterior margin of the urinary bladder on image 409 is unchanged suggestive of a phlebolith. The urinary bladder, uterus and adnexa are within normal limits. Unremarkable abdominal aorta. No adenopathy. No bowel obstruction or bowel wall thickening. No ascites or mesenteric inflammation. Normal appendix. Unremarkable soft tissues. Moderate L4-L5 intervertebral disc space narrowing with small posterior disc osteophyte complex. No acute fracture. IMPRESSION: 1. Limited exam as above. 2. No acute intra-abdominal or intrapelvic abnormality. 3. Normal appendix. ACT 112: Negative or not required by law. The above report was generated using voice recognition software. It may contain grammatical, syntax or spelling errors. Electronically signed by: Omid Schulz M.D. 08/28/2021 5:[address] 08/28/21 16:01 CT cervical spine wo con CLINICAL HISTORY: 31 years-old Female with AMS. Acutely altered mental status. Acute neck injury COMPARISON: Head CT of same day TECHNIQUE: Multiple axial CT images of the cervical spine were obtained without contrast. A dose lowering technique was utilized adhering to the principles of ALARA. FINDINGS: Multilevel intervertebral disc space narrowing is age advanced severe at C5-C6. Moderate multilevel bridging osteophytosis with uncovertebral spurring and posterior disc osteophyte complex formations. Moderate multilevel facet arthrosis. The study is motion degraded. Multilevel neural foraminal narrowing. No acute fracture, subluxation or endplate erosion. No prevertebral edema. Lung apices are clear. IMPRESSION: 1. No acute fracture or subluxation. 2. Age advanced degenerative changes as above. ACT 112: Negative or not required by law. The above report was generated using voice recognition software. It may contain grammatical, syntax or spelling errors. Electronically signed by: Omid Schulz M.D. 08/28/2021 5:11 PM Chest X-Ray 08/28/21 16:01 XR chest 1V portable HISTORY: 31 years-old Female AMS acute chest pain COMPARISON: Acute abdominal series radiographs 11/05/2019 TECHNIQUE: Portable AP view of the chest FINDINGS: The cardiomediastinal and hilar silhouettes are within normal limits. No pneumothorax, pleural effusion, airspace consolidation or overt pulmonary edema. Bones of the chest appear grossly intact. IMPRESSION: No acute process. ACT 112: Negative or not required by law. The above report was generated using voice recognition software. It may contain grammatical, syntax or spelling errors. Electronically signed by: Omid Schulz M.D. 08/28/2021 5:[address] 08/28/21 16:02 CT head/brain wo con CLINICAL HISTORY: 31 years-old Female with AMS. Acutely altered mental status TECHNIQUE: Multiple axial CT images of the head were obtained without contrast. A dose lowering technique was utilized adhering to the principles of ALARA. CT DOSE: 2145.00 mGy.cm COMPARISON: Head CT 10/01/2018 FINDINGS: No acute intracranial hemorrhage, midline shift, intracranial mass, hydrocepha terra, territorial ischemia or abnormal extra-axial collection. Age-related involutional changes. Study is motion degraded. The calvarium is intact. The paranasal sinuses, mastoid air cells, and middle ear cavities are clear. IMPRESSION: Motion degraded exam. No acute intracranial abnormality. ACT 112: Negative or not required by law. The above report was generated using voice recognition software. It may contain grammatical, syntax or spelling errors. Electronically signed by: Omid Schulz M.D. 08/28/2021 5:08 PM Discharge Plan Visit Data Chief Complaint: Seizure ED Provider: Ziggy Barrios Discharge Problem: Seizure, AMS (altered mental status), Noncompliance with medication regimen, Nausea & vomiting Patient Disposition: Admitted As Inpatient Discharge Instructions Interventions: ED Discharge Assessment Last Done: 08/28/21 21:11 Discharge Problem: AMS (altered mental status) Qualifiers: Altered mental status type: unspecified Qualified Code(s): R41.82 - Altered mental status, unspecified Nausea & vomiting Qualifiers: Vomiting type: unspecified Qualified Code(s): R11.2 - Nausea with vomiting, unspecified
[2021-08-28 16:25] LABS: Hematocrit (blood only) 43.5 % (37-47); Hemoglobin 15.2 g/dL (12.0-16.0); Immature Granulocytes % (auto) 0.5 %; Lymphocytes # (auto) 0.61 K/uL (1.2-3.4); Lymphocytes % (auto) 2.8 %; Mean Corpuscular Hemoglobin 31.6 pg (25-34); Mean Corpuscular Hgb Conc 34.9 g/dL (32-36); Mean Corpuscular Volume 90.4 fL (80-100); Mean Platelet Volume 8.6 fL (7.4-10.4); Monocytes # (auto) 1.25 K/uL (0.11-0.59); Monocytes % (auto) 5.8 %; Neutrophils # (auto) 19.67 K/uL (1.4-6.5); Neutrophils % (auto) 90.9 %; Platelet Count 429 K/uL (130-400); RDW Coefficient of Variation 13.2 % (11.5-14.5); RDW Standard Deviation 43.6 fL (36.4-46.3); Red Blood Count 4.81 M/uL (4.2-5.4); White Blood Count 21.63 K/uL (4.8-10.8)
[2021-08-28 16:35] LABS: INR 1.1 (0.9-1.1); Partial Thromboplastin Ratio 0.9; Partial Thromboplastin Time 25.3 Seconds (21.0-31.0); Prothrombin Time 11.9 Seconds (9.0-12.0)
[2021-08-28 16:44] LABS: Alanine Aminotransferase 19 U/L (7-52); Albumin Globulin Ratio 1.3 (0.9-2); Albumin Level 4.8 gm/dl (3.4-5.0); Alkaline Phosphatase 132 U/L (34-104); Anion Gap 20 (3-11); Aspartate Aminotransferase 24 U/L (13-39); BUN Creatinine Ratio 17.8 (10-20); Bilirubin,Total 0.8 mg/dl (0.2-1.0); Blood Urea Nitrogen 13 mg/dl (6-23); Calcium 10.1 mg/dl (8.5-10.1); Carbon Dioxide 17 mmol/L (21-32); Chloride 101 mmol/L (98-107); Creatine Kinase 103 U/L (26-192); Est GFR (African American) 125.4 ml/min; Est GFR (Non-African American) 108.2 ml/min; Globulin 3.8 gm/dl (2.5-4.0); Glucose 93 mg/dl (70-99(Fasting)); Lipase 8 U/L (11-82); Magnesium 2.2 mg/dl (1.7-2.4); Sodium 138 mmol/L (136-145); Total Protein 8.6 gm/dl (6.0-8.3)
[2021-08-28 16:45] LABS: Pregnancy Test, Serum Negative (Negative)
[2021-08-28 16:46] LABS: Appearance Urine Clear (Clear); Bacteria Urine Automated Negative (Negative); Bilirubin Urine Negative (Negative); Blood Urine Trace (Negative); Color Urine Dark Yellow; Epithelial Cell Urine Auto 20-30 /lpf (0-5); Glucose Urine UA Negative (Negative); Ketones Urine 4+ (Negative); Leukocyte Esterase Urine Negative (Negative); Nitrite Urine Negative (Negative); Protein Urine 1+ (Negative); Specific Gravity Urine 1.032 (1.000-1.030); Urobilinogen Urine Negative (Negative); WBC Urine Automated 0 /hpf (0-5)
[2021-08-28 16:47] LABS: Troponin I < 0.03 ng/ml (0-0.04)
[2021-08-28 16:49] LABS: Base Excess VBG -2.4 mEq/L; HCO3 VBG 19 mmol/L; PCO2 VBG 26 mmHg (38-50); PO2 VBG 24 mmHg; pH VBG 7.48 (7.36-7.41)
[2021-08-28 16:50] LABS: Acetaminophen < 3 ug/ml (10-30); Salicylate < 3.0 mg/dl (3.0-30)
[2021-08-28 16:51] LABS: Oxygen Saturation VBG < 60.0 %
--- NOTE | 2021-08-28 17:09 | CT Scan Report ---
CT head/brain wo con CLINICAL HISTORY: 31 years-old Female with AMS. Acutely altered mental status TECHNIQUE: Multiple axial CT images of the head were obtained without contrast. A dose lowering tech nique was utilized adhering to the principles of ALARA. CT DOSE: 2145.00 mGy.cm COMPARISON: Head CT 10/01/2018 FINDINGS: No acute intracranial hemorrhage, midline shift, intracranial mass, hydrocephalus, territorial ischem ia or abnormal extra-axial collection. Age-related involutional changes. Study is motion degraded. The calvarium is intact. The paranasal sinuses, mastoid air cells, and middle ear cavities are clear . IMPRESSION: Motion degraded exam. No acute intracranial abnormality. ACT 112: Negative or not required by law. The above report was generated using voice recognition software. It may contain grammatical, syntax o r spelling errors. Electronically signed by: Omid Schulz M.D. 08/28/2021 5:08 PM
--- NOTE | 2021-08-28 17:12 | CT Scan Report ---
CT cervical spine wo con CLINICAL HISTORY: 31 years-old Female with AMS. Acutely altered mental status. Acute neck injury COMPARISON: Head CT of same day TECHNIQUE: Multiple axial CT images of the cervical spine were obtained without contrast. A dose low ering technique was utilized adhering to the principles of ALARA. FINDINGS: Multilevel intervertebral disc space narrowing is age advanced severe at C5-C6. Moderate mu ltilevel bridging osteophytosis with uncovertebral spurring and posterior disc osteophyte complex for mations. Moderate multilevel facet arthrosis. The study is motion degraded. Multilevel neural foramin al narrowing. No acute fracture, subluxation or endplate erosion. No prevertebral edema. Lung apices are clear. IMPRESSION: 1. No acute fracture or subluxation. 2. Age advanced degenerative changes as above. ACT 112: Negative or not required by law. The above report was generated using voice recognition software. It may contain grammatical, syntax o r spelling errors. Electronically signed by: Omid Schulz M.D. 08/28/2021 5:11 PM
[2021-08-28] MEDS ORDERED: SODIUM CHLORIDE 0.9% 1000ML 1,000 ML IV ONE ×2 (17:14→20:14)
[2021-08-28] MEDS ORDERED: FOSPHENYTOIN 1,000 MGPE in SODIUM CHLORIDE 0.9% 50 ML IV STA ×2 (17:23→18:58)
--- NOTE | 2021-08-28 17:23 | CT Scan Report ---
ABDOMEN AND PELVIS CT WITHOUT CONTRAST HISTORY: Acute generalized abdominal pain AMS TECHNIQUE: Multiaxial CT images of the abdomen and pelvis were performed without contrast. A dose lo wering technique was utilized adhering to the principles of ALARA. COMPARISON STUDY: 09/24/2018 FINDINGS: Respiratory motion artifact limits the study. The study is also limited secondary to upper extremity positioning and lack of contrast. Clear lung bases. No pneumatosis or pneumoperitoneum. The unenhance d spleen, pancreas, adrenal glands, gallbladder and liver appear unremarkable. The previous noted 1.5 cm lesion of the inferior right hepatic lobe is better seen on the comparison study. Unremarkable kidneys. No hydronephrosis. 4 mm calcification along the posterior margin of the urinary bladder on image 409 is unchanged suggestive of a phlebolith. The urinary bladder, uterus and adnexa are within normal limits. Unremarkable abdominal aorta. No adenopathy. No bowel obstruction or bowel wall thickening. No ascites or mesenteric inflammation. Normal appendix . Unremarkable soft tissues. Moderate L4-L5 intervertebral disc space narrowing with small posterior disc osteophyte complex. No acute fracture. IMPRESSION: 1. Limited exam as above. 2. No acute intra-abdominal or intrapelvic abnormality. 3. Normal appendix. ACT 112: Negative or not required by law. The above report was generated using voice recognition software. It may contain grammatical, syntax o r spelling errors. Electronically signed by: Oimd Schulz M.D. 08/28/2021 5:21 PM
--- NOTE | 2021-08-28 17:39 | XRay Report ---
XR chest 1V portable HISTORY: 31 years-old Female AMS acute chest pain COMPARISON: Acute abdominal series radiographs 11/05/2019 TECHNIQUE: Portable AP view of the chest FINDINGS: The cardiomediastinal and hilar silhouettes are within normal limits. No pneumothorax, pleural effusi on, airspace consolidation or overt pulmonary edema. Bones of the chest appear grossly intact. IMPRESSION: No acute process. ACT 112: Negative or not required by law. The above report was generated using voice recognition software. It may contain grammatical, syntax o r spelling errors. Electronically signed by: Omid Schulz M.D. 08/28/2021 5:38 PM
[2021-08-28 17:49] LABS: Amphetamines+Metham, Urine Neg (Neg); Barbiturates, Urine Neg (Neg); Benzodiazepine, Urine Neg (Neg); Cocaine, Urine Neg (Neg); MDMA (Ecstacy), Urine Neg (Neg); Methadone, Urine Neg (Neg); Opiate, Urine Neg (Neg); Phencyclidine, Urine Neg (Neg)
[2021-08-28] MEDS ORDERED: HALOPERIDOL LACTATE 5 MG/ML 1 ML VIAL IM STA (17:59)
[2021-08-28] MEDS ORDERED: VANCOMYCIN HCL 1,500 MG in SODIUM CHLORIDE 0.9% 500 ML IV ONE (17:59)
[2021-08-28] MEDS ORDERED: cefTRIAXone SODIUM 2,000 MG/70 ML BAG IV STA (17:59)
[2021-08-28] MEDS ORDERED: VANCOMYCIN CONSULT ACTIVE PRN (17:59)
[2021-08-28] MEDS ORDERED: dexAMETHasone**PF** 10 MG/ML VIAL IV ONE (18:00)
[2021-08-28 18:57] LABS: Carbamazepine Tegretol 3.3 mcg/ml (4-12); Phenytoin (Dilantin) < 3.0 mcg/ml (10-20)
[2021-08-28 19:11] LABS: Total Protein CSF 50.1 mg/dl (15-45)
[2021-08-28 19:26] LABS: Appearance CSF Clear; CSF Count Tube # 3; CSF Xanthrochromic No xanthochromia; Color CSF Colorless; Red Blood Cell CSF (A) 0 /uL (0-); Red Blood Cell CSF (B) 0 /uL (0-); White Blood Cell CSF (A) 1 /uL (0-5); White Blood Cell CSF (B) 2 /uL (0-5)
[2021-08-28] MEDS ORDERED: KETOROLAC TROMETHAMINE 15 MG/ML VIAL IV ONE (19:36)
--- NOTE | 2021-08-28 19:38 | History & Physical Report ---
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 Neurology consult Re: Breakthrough seizure DVT prophylaxis per Lovenox subcu Full code Patient requesting updates from providers. Mr. Nicholas Hwang, contact #[phone]. Text document was generated using yeppt voice recognition software. It may contain grammatical or spelling errors. Kindly contact undersigned for clarification of any documentation item in question. History of Present Illness Chief Complaint: Seizure as per records Primary Care Provider: Arabella Noland DO History obtained from ER provider, patient, family, and records. Unable to obtain history from patient secondary to obtunded state. Medical history significant for epilepsy, movement disorder, hepatic vein th rombosis status post Coumadin Rx, genital herpes, ongoing marijuana use, past tobacco abuse. Last confinement 2018 for generalized abdominal pain secondary to Pamela esophagitis. Pseudoseizure during confinement. Patient not well the last 2 days as per . Complaining of achy abdominal pain with diarrhea with multiple emesis episodes of emesis . Patient unable to take her seizure medications as per partner. Patient consuming marijuana at home. Witnessed GTC seizures at home different from patient's usual small episodes as per . Patient brought to the ER for evaluation. Fosphenytoin administered at the ER. Multiple sedatives given at the ER to keep patient calm. IV Vancomycin, Ceftriaxone, and Decadron given for possible meningitis. Medical History as above Surgical History : Dental surgery, BTL, D&C Family History : Colon cancer, heart disease, ulcerative colitis Personal/Social history : Past tobacco abuse, no EtOH intake, disabled Allergies Allergy/AdvReac Type Severity Reaction Status Date / Time prednisone AdvReac Intermediate DILANTIN Verified 08/28/21 16:44 TOXICITY sulfamethoxazole AdvReac Intermediate BURNING,ALIX Verified 08/28/21 16:44 RRHEA trimethoprim AdvReac Intermediate BURNING,ALIX Verified 08/28/21 16:44 RRHEA Home Medications Medication Instructions Recorded Confirmed Type lorazepam 1 mg tablet 1 mg PO QID PRN 08/09/18 08/28/21 History phenytoin sodium extended 100 mg See Rx Instructions .ROUTE .COMPLEX 08/09/18 08/28/21 History capsule (Dilantin Extended) venlafaxine 150 mg 150 mg PO QAM 08/09/18 08/28/21 History capsule,extended release 24 hr (Effexor XR) albuterol sulfate 90 mcg/actuation 2 puff INHALATION Q4H PRN 09/03/18 08/28/21 History aerosol inhaler (Ventolin HFA) carbamazepine 100 mg chewable 150 mg PO BID 09/03/18 08/28/21 History tablet carbamazepine 300 mg 600 mg PO BID 09/03/18 08/28/21 History capsule,extended release [id number] (Carbatrol) ondansetron 4 mg disintegrating 4 mg PO Q6H PRN #20 tab 11/05/19 08/28/21 Rx tablet bisacodyl 10 mg rectal suppository 10 mg [place] DAILY PRN 08/28/21 08/28/21 History (Dulcolax (bisacodyl)) polyethylene glycol 3350 17 17 g PO DAILY PRN 08/28/21 08/28/21 History gram/dose oral powder (Miralax) sennosides 8.6 mg tablet (senna) 8.6 mg PO BID 08/28/21 08/28/21 History valacyclovir 500 mg tablet 500 mg PO TID PRN 08/28/21 08/28/21 History venlafaxine 75 mg capsule,extended 75 mg PO QAM 08/28/21 08/28/21 History release 24 hr Past Med/Surg History Medical History (Updated 08/28/21 @ 22:48 by Tutu Comer MD) Anxiety Asthma Depression Dystonia Hepatic vein thrombosis Liver lesion, right lobe Pituitary adenoma PVT (portal vein thrombosis) Restless leg syndrome Seizure disorder Surgical History History of dental surgery Hx of tubal ligation Family History Other Hypertension Social History Smoking Status: Unknown if ever smoked Tobacco Type: E-cigarettes / Vaping Preferred Language: Swedish Communication Ability: Effective Communication Ability Comment: Unknown, paitent only alert to person. Unable to answer assessment question Apprentice Carpenter Required: No Beliefs That Will Affect Care: None Current Living Situation: Spouse Current Living Situation Comment: Feels Safe at Home: Yes Assistive Devices: Oxygen - Continuous Review of Systems Review of Systems: Could not be reliably obtained secondary to obtunded state Physical Exam Physical Exam: GENERAL: Obtunded, uncomfortable, no respiratory distress SKIN: Normal color, warm HEENT: [place] palpebral conjunctivae, no ptosis, dry buccal mucosa NECK : Supple, no tenderness CHEST : CTA, no tenderness HEART : Tachycardic, no obvious murmurs ABDOMEN: Some distention, nontender EXTREMITIES : No LE swelling/tenderness, no other conspicuous deformities noted NEUROLOGIC : Obtunded, no facial asymmetry, gait and stance not assessed Results & Data Results & Data ([facility]) Vital Signs (Past 12 Hours) Vital Signs Temp Pulse Pulse Resp BP BP Pulse Ox 08/28/21 17:28 100 H 18 111/89 100 08/28/21 16:01 96 08/28/21 15:28 37.8 C H 88 18 162/81 H 96 Laboratory Results Laboratory Results WBC 21.63 K/uL (4.8-10.8) H 08/28/21 16:12 RBC 4.81 M/uL (4.2-5.4) 08/28/21 16:12 Hgb 15.2 g/dL (12.0-16.0) 08/28/21 16:12 Hct 43.5 % (37-47) 08/28/21 16:12 MCV 90.4 fL (80-100) 08/28/21 16:12 MCH 31.6 pg (25-34) 08/28/21 16:12 MCHC 34.9 g/dL (32-36) 08/28/21 16:12 RDW Std Deviation 43.6 fL (36.4-46.3) 08/28/21 16:12 RDW Coeff of Erika 13.2 % (11.5-14.5) 08/28/21 16:12 Plt Count 429 K/uL (130-400) H 08/28/21 16:12 MPV 8.6 fL (7.4-10.4) 08/28/21 16:12 Immature Gran % (Auto) 0.5 % 08/28/21 16:12 Neut % (Auto) 90.9 % 08/28/21 16:12 Lymph % (Auto) 2.8 % 08/28/21 16:12 [place] % (Auto) 5.8 % 08/28/21 16:12 Eos % (Auto) 0.0 % 08/28/21 16:12 Baso % (Auto) 0.0 % 08/28/21 16:12 Neut # (Auto) 19.67 K/uL (1.4-6.5) H 08/28/21 16:12 Lymph # (Auto) 0.61 K/uL (1.2-3.4) L 08/28/21 16:12 [place] # (Auto) 1.25 K/uL (0.11-0.59) H 08/28/21 16:12 Eos # (Auto) 0.00 K/uL (0-0.5) 08/28/21 16:12 Baso # (Auto) 0.00 K/uL (0-0.2) 08/28/21 16:12 Immature Gran # (Auto) 0.10 K/uL (0.00-0.02) H 08/28/21 16:12 PT 11.9 Seconds (9.0-12.0) 08/28/21 16:12 INR 1.1 (0.9-1.1) 08/28/21 16:12 APTT 25.3 Seconds (21.0-31.0) 08/28/21 16:12 PTT Ratio 0.9 08/28/21 16:12 VBG pH 7.48 (7.36-7.41) H 08/28/21 16:35 VBG pCO2 26 mmHg (38-50) L 08/28/21 16:35 VBG pO2 24 mmHg 08/28/21 16:35 VBG HCO3 19 mmol/L 08/28/21 16:35 VBG O2 Saturation < 60.0 % 08/28/21 16:35 VBG Base Excess -2.4 mEq/L 08/28/21 16:35 Barometric Pressure 733.8 mm/Hg 08/28/21 16:35 Sodium 138 mmol/L (136-145) 08/28/21 16:12 Potassium 4.0 mmol/L (3.5-5.1) 08/28/21 16:12 Chloride 101 mmol/L (98-107) 08/28/21 16:12 Carbon Dioxide 17 mmol/L (21-32) L 08/28/21 16:12 Anion Gap 20 (3-11) H 08/28/21 16:12 BUN 13 mg/dl (6-23) 08/28/21 16:12 Creatinine 0.73 mg/dl (0.6-1.2) 08/28/21 16:12 Est Cr Clr Drug Dosing Not Reportable 08/28/21 16:12 Est GFR ( Amer) 125.4 ml/min 08/28/21 16:12 Est GFR (Non-Af Amer) 108.2 ml/min 08/28/21 16:12 BUN/Creatinine Ratio 17.8 (10-20) 08/28/21 16:12 Glucose 93 mg/dl (70-99(Fasting)) 08/28/21 16:12 Lactate 0.9 mmol/L (0.4-2.0) 08/28/21 18:15 Calcium 10.1 mg/dl (8.5-10.1) 08/28/21 16:12 Magnesium 2.2 mg/dl (1.7-2.4) 08/28/21 16:12 Total Bilirubin 0.8 mg/dl (0.2-1.0) 08/28/21 16:12 AST 24 U/L (13-39) 08/28/21 16:12 ALT 19 U/L (7-52) 08/28/21 16:12 Alkaline Phosphatase 132 U/L (34-104) H 08/28/21 16:12 Total Creatine Kinase 103 U/L (26-192) 08/28/21 16:12 Troponin I < 0.03 ng/ml (0-0.04) 08/28/21 16:12 Total Protein 8.6 gm/dl (6.0-8.3) H 08/28/21 16:12 Albumin 4.8 gm/dl (3.4-5.0) 08/28/21 16:12 Globulin 3.8 gm/dl (2.5-4.0) 08/28/21 16:12 Albumin/Globulin Ratio 1.3 (0.9-2) 08/28/21 16:12 Lipase 8 U/L (11-82) L 08/28/21 16:12 Prolactin 5.36 ng/ml 08/28/21 16:12 HCG, Qual Negative (Negative) 08/28/21 16:12 Urine Color Dark Yellow 08/28/21 16:25 Urine Appearance Clear (Clear) 08/28/21 16:25 Urine pH 6.0 (4.5-7.5) 08/28/21 16:25 Ur Specific [place] 1.032 (1.000-1.030) H 08/28/21 16: Urine Protein 1+ (Negative) H 08/28/21 16: Urine Glucose (UA) Negative (Negative) 08/28/21 16: Urine Ketones 4+ (Negative) H 08/28/21 16:25 Urine Blood Trace (Negative) H 08/28/21 16:25 Urine Nitrite Negative (Negative) 08/28/21 16:25 Urine Bilirubin Negative (Negative) 08/28/21 16:25 Urine Urobilinogen Negative (Negative) 08/28/21 16:25 Ur Leukocyte Esterase Negative (Negative) 08/28/21 16:25 Urine WBC (Auto) 0 /hpf (0-5) 08/28/21 16:25 Urine RBC (Auto) 5-10 /hpf (0-4) H 08/28/21 16:25 U Hyaline Cast (Auto) 1-5 /lpf (0-5) 08/28/21 16:25 U Epithel Cells (Auto) 20-30 /lpf (0-5) H 08/28/21 16:25 Urine Bacteria (Auto) Negative (Negative) 08/28/21 16:25 Fluid Comment 08/28/21 18:30 CSF Appearance Clear 08/28/21 18:30 CSF Color Colorless 08/28/21 18:30 Xanthrochromic No xanthochromia 08/28/21 18:30 CSF WBC 1 /uL (0-5) 08/28/21 18:30 CSF RBC 0 /uL (0-) 08/28/21 18:30 CSF Cell Count Tube # 3 08/28/21 18:30 CSF Chemistry Tube # 3 08/28/21 18:30 CSF Glucose 73 mg/dl (40-70) H 08/28/21 18:30 CSF Total Protein 50.1 mg/dl (15-45) H 08/28/21 18:30 Salicylates < 3.0 mg/dl (3.0-30) L 08/28/21 16:12 Urine Opiates Screen Neg (Neg) 08/28/21 16:25 Ur Methadone, Qual Neg (Neg) 08/28/21 16:25 Acetaminophen < 3 ug/ml (10-30) L 08/28/21 16:12 Urine Barbiturates Neg (Neg) 08/28/21 16:25 Phenytoin < 3.0 mcg/ml (10-20) L 08/28/21 16:12 Carbamazepine 3.3 mcg/ml (4-12) L 08/28/21 16:12 Ur Phencyclidine (PCP) Neg (Neg) 08/28/21 16:25 U Amphetamin/Meth Scrn Neg (Neg) 08/28/21 16:25 MDMA (Ecstasy) Screen Neg (Neg) 08/28/21 16:25 U Benzodiazepines Scrn Neg (Neg) 08/28/21 16:25 Ur Cocaine Metabolite Neg (Neg) 08/28/21 16:25 U Marijuana (THC) Screen Pos (Neg) H 08/28/21 16:25 Ethyl Alcohol mg/dL < 10.0 mg/dl (<10.0) 08/28/21 16:12 SARS-CoV-2, RNA, NAAT NEGATIVE (NEGATIVE) 08/28/21 17:39 Impressions Abdomen/Pelvis CT 08/28/21 16:[address] WITHOUT CONTRAST HISTORY: Acute generalized abdominal pain AMS TECHNIQUE: Multiaxial CT images of the abdomen and pelvis were performed without contrast. A dose lowering technique was utilized adhering to the principles of ALARA. COMPARISON STUDY: 09/24/2018 FINDINGS: Respiratory motion artifact limits the study. The study is also limited secondary to upper extremity positioning and lack of contrast. Clear lung bases. No pneumatosis or pneumoperitoneum. The unenhanced spleen, pancreas, adrenal glands, gallbladder and liver appear unremarkable. The previous noted 1.5 cm lesion of the inferior right hepatic lobe is better seen on the comparison study. Unremarkable kidneys. No hydronephrosis. 4 mm calcification along the posterior margin of the urinary bladder on image 409 is unchanged suggestive of a phlebolith. The urinary bladder, uterus and adnexa are within normal limits. Unremarkable abdominal aorta. No adenopathy. No bowel obstruction or bowel wall thickening. No ascites or mesenteric inflammation. Normal appendix. Unremarkable soft tissues. Moderate L4-L5 inter vertebral disc space narrowing with small posterior disc osteophyte complex. No acute fracture. IMPRESSION: 1. Limited exam as above. 2. No acute intra-abdominal or intrapelvic abnormality. 3. Normal appendix. ACT 112: Negative or not required by law. The above report was generated using voice recognition software. It may contain grammatical, syntax or spelling errors. Electronically signed by: Omid Schulz M.D. 08/28/2021 5:[address] 08/28/21 16:01 CT cervical spine wo con CLINICAL HISTORY: 31 years-old Female with AMS. Acutely altered mental status. Acute neck injury COMPARISON: Head CT of same day TECHNIQUE: Multiple axial CT images of the cervical spine were obtained without contrast. A dose lowering technique was utilized adhering to the principles of ALARA. FINDINGS: Multilevel intervertebral disc space narrowing is age advanced severe at C5-C6. Moderate multilevel bridging osteophytosis with uncovertebral spurring and posterior disc osteophyte complex formations. Moderate multilevel facet arthrosis. The study is motion degraded. Multilevel neural foraminal narrowing. No acute fracture, subluxation or endplate erosion. No prevertebral edema. Lung apices are clear. IMPRESSION: 1. No acute fracture or subluxation. 2. Age advanced degenerative changes as above. ACT 112: Negative or not required by law. The above report was generated using voice recognition software. It may contain grammatical, syntax or spelling errors. Electronically signed by: Omid Schulz M.D. 08/28/2021 5:11 PM Chest X-Ray 08/28/21 16:01 XR chest 1V portable HISTORY: 31 years-old Female AMS acute chest pain COMPARISON: Acute abdominal series radiographs 11/05/2019 TECHNIQUE: Portable AP view of the chest FINDINGS: The cardiomediastinal and hilar silhouettes are within normal limits. No pneumothorax, pleural effusion, airspace consolidation or overt pulmonary edema. Bones of the chest appear grossly intact. IMPRESSION: No acute process. ACT 112: Negative or not required by law. The above report was generated using voice recognition software. It may contain grammatical, syntax or spelling errors. Electronically signed by: Omid Schulz M.D. 08/28/2021 5:[address] 08/28/21 16:02 CT head/brain wo con CLINICAL HISTORY: 31 years-old Female with AMS. Acutely altered mental status TECHNIQUE: Multiple axial CT images of the head were obtained without contrast. A dose lowering technique was utilized adhering to the principles of ALARA. CT DOSE: 2145.00 mGy.cm COMPARISON: Head CT 10/01/2018 FINDINGS: No acute intracranial hemorrhage, midline shift, intracranial mass, hydr ocephalus, territorial ischemia or abnormal extra-axial collection. Age-related involutional changes. Study is motion degraded. The calvarium is intact. The paranasal sinuses, mastoid air cells, and middle ear cavities are clear. IMPRESSION: Motion degraded exam. No acute intracranial abnormality. ACT 112: Negative or not required by law. The above report was generated using voice recognition software. It may contain grammatical, syntax or spelling errors. Electronically signed by: Omid Schulz M.D. 08/28/2021 5:08 PM Diagnostic Findings EKG as per my interpretation rate 105, sinus tachycardia, normal axis, incomplete RBBB, T wave abnormalities lateral and septal leads
[2021-08-28] MEDS ORDERED: DEXTROSE 5% IV ONE (20:20)
[2021-08-28] MEDS ORDERED: ACYCLOVIR SOD IV ONE (20:20)
[2021-08-28] MEDS ORDERED: ACYCLOVIR SOD 750 MG in DEXTROSE 5% 100 ML IV ONE (20:30)
[2021-08-28] MEDS ORDERED: PATIENT'S HEIGHT AND/OR WEIGHT NEEDED SCH (20:30)
[2021-08-28] MEDS ORDERED: ACYCLOVIR SOD 700 MG in DEXTROSE 5% 100 ML IV ONE (20:45)
[2021-08-28 21:35] LABS: Cryptococcus neoformans/ga PCR Not Detected (NotDetected); Cytomegalovirus PCR Not Detected (NotDetected); Enterovirus PCR Not Detected (NotDetected); Escherichia coli K1 PCR Not Detected (NotDetected); Haemophilius influenzae PCR Not Detected (NotDetected); Herpes Simplex Virus 1 PCR Not Detected (NotDetected); Herpes Simplex Virus 2 PCR Not Detected (NotDetected); Human Herpes Virus 6 PCR Not Detected (NotDetected); Human Parechovirus PCR Not Detected (NotDetected); Listeria monocytogenes PCR Not Detected (NotDetected); Neisseria meningitidis PCR Not Detected (NotDetected); Streptococcus agalactiae PCR Not Detected (NotDetected); Streptococcus pneumoniae PCR Not Detected (NotDetected); Varicella Zoster Virus PCR Not Detected (NotDetected)
[2021-08-28] MEDS ORDERED: LORazepam 2 MG/1 ML VIAL IV PRN (22:10)
[2021-08-28] MEDS ORDERED: SENNA 8.6 MG TAB PO SCH (22:10)
[2021-08-28] MEDS: PHENYTOIN SODIUM ER 100 MG CAP PO SCH (23:02)
[2021-08-28] MEDS: carBAMazepine 100 MG CHEW TAB PO SCH (23:03)
[2021-08-29 00:17] LABS: Lyme Ab IgG w/WB Rflx Negative (Negative); Lyme Ab IgM w/WB Rflx Negative (Negative)
[2021-08-29] MEDS ORDERED: ACYCLOVIR SOD 650 MG in DEXTROSE 5% 100 ML IV SCH (06:00)
[2021-08-29 06:56] LABS: Basophils # (auto) 0.01 K/uL (0-0.2); Basophils % (auto) 0.1 %; Hematocrit (blood only) 34.1 % (37-47); Hemoglobin 11.2 g/dL (12.0-16.0); Immature Granulocytes # (auto) 0.05 K/uL (0.00-0.02); Immature Granulocytes % (auto) 0.4 %; Lymphocytes # (auto) 1.51 K/uL (1.2-3.4); Mean Corpuscular Hemoglobin 30.6 pg (25-34); Mean Corpuscular Hgb Conc 32.8 g/dL (32-36); Mean Corpuscular Volume 93.2 fL (80-100); Mean Platelet Volume 8.2 fL (7.4-10.4); Monocytes # (auto) 1.43 K/uL (0.11-0.59); Monocytes % (auto) 11.3 %; Neutrophils # (auto) 9.61 K/uL (1.4-6.5); Neutrophils % (auto) 76.2 %; Platelet Count 258 K/uL (130-400); RDW Coefficient of Variation 13.7 % (11.5-14.5); RDW Standard Deviation 46.8 fL (36.4-46.3); Red Blood Count 3.66 M/uL (4.2-5.4); White Blood Count 12.61 K/uL (4.8-10.8)
[2021-08-29 07:14] LABS: Carbamazepine Tegretol 5.9 mcg/ml (4-12); Phenytoin (Dilantin) 22.2 mcg/ml (10-20)
[2021-08-29 07:17] LABS: BUN Creatinine Ratio 18.3 (10-20); Calcium 7.3 mg/dl (8.5-10.1); Creatinine Clr Calc Pharmacy 136.6 ml/min; Est GFR (African American) 138.8 ml/min; Est GFR (Non-African American) 119.8 ml/min; Potassium 3.5 mmol/L (3.5-5.1)
[2021-08-29] MEDS ORDERED: PNEUMOCOCCAL Polysaccharide Vaccine 25mcg/0.5mL vial/Syr IM ONE (08:00)
[2021-08-29] MEDS ORDERED: Flu Vaccine (Fluarix) 0.5mL SYR (Standard Dose) IM ONE (08:00)
[2021-08-29] MEDS: VENLAFAXINE HCL XR 75 MG CAPXR PO SCH (08:09)
[2021-08-29] MEDS: carBAMazepine 100 MG CHEW TAB PO SCH ×2 (08:09→21:36)
[2021-08-29] MEDS: VENLAFAXINE HCL XR 150 MG CAPXR PO SCH (08:09)
[2021-08-29] MEDS: ENOXAPARIN INJ 40 MG/0.4 ML SYR SQ SCH (08:10)
[2021-08-29] MEDS ORDERED: ACYCLOVIR CONSULT ACTIVE PRN (09:00)
[2021-08-29] MEDS ORDERED: LORazepam 0.5 MG TAB PO STA (09:10)
--- NOTE | 2021-08-29 09:18 | Electrocardiogram Report ---
Test Reason : Blood Pressure : / mmHG Vent. Rate : 104 BPM Atrial Rate : 104 BPM P-R Int : 148 ms QRS Dur : 082 ms QT Int : 404 ms P-R-T Axes : 065 073 065 degrees QTc Int : 531 ms Poor data quality, interpretation may be adversely affected Sinus tachycardia T wave abnormality, consider anterior ischemia Prolonged QT Abnormal ECG When compared with ECG of 05-NOV-2019 11:51, QT has lengthened Confirmed by Jcarlos Graham ([id number]) on 08/29/2021 9:17:54 AM Referred By: REFERRED SELF Confirmed By:Jcarlos Graham
--- NOTE | 2021-08-29 12:19 | Neurology Consultation ---
Date of Consultation August 29, 2021 Assessment & Plan (1) Seizure: 1. continue Dilantin ER 200 mg hs 2. continue Tegretol 150 mg BID 3. continue Tegretol XR 600 mg BID 4. no driving for 6 months from last seizure date, no heights, no bathing or swimming alone 5. tegretol 3.3 and dilantin <3.0 at presentation. 6. repeat levels at outpatient visit 7. will arrange follow up as outpatient has no showed several times. - 4-6 weeks after discharge (2) AMS (altered mental status): (3) Noncompliance with medication regimen: Supervising Physician Co-Signing Physician Notes Patient was seen and examined. A 31 yo year old woman with suspected breakthrough seizure. Possible related to recent N/V as tegretol and Dilantin levels were low. CSF studies showed mildly elevated protein and mildly elevated glucose. Possibly reactive or related to recent seizure. Recommend to resume home medications. Follow up HSV PCR. Seizure precautions. History of Present Illness Reason for Consultation: breakthrough seizure Requesting Physician: Kushal Granger MD Attending Physician: Kushal Granger MD History of Present Illness Donya is a 31 year old female who presented to [facility] ED 08/28/21 for seizure- like activity. She had a seizure prior to arrival. and was not following commands well or givingr any meaningful information at time of presentation which may have been a post ictal presentation. She received Ativan prior to arrival. She is questioned she is admitting to some drug use prior to coming to the emergency department. Allergies Allergy/AdvReac Type Severity Reaction Status Date / Time prednisone AdvReac Intermediate DILANTIN Verified 08/28/21 16:44 TOXICITY sulfamethoxazole AdvReac Intermediate BURNING,ALIX Verified 08/28/21 16:44 RRHEA trimethoprim AdvReac Intermediate BURNING,ALIX Verified 08/28/21 16:44 RRHEA Home Medications Medication Instructions Recorded Confirmed Type lorazepam 1 mg tablet 1 mg PO QID PRN 08/09/18 08/28/21 History phenytoin sodium extended 100 mg See Rx Instructions .ROUTE .COMPLEX 08/09/18 08/28/21 History capsule (Dilantin Extended) venlafaxine 150 mg 150 mg PO QAM 08/09/18 08/28/21 History capsule,extended release 24 hr (Effexor XR) albuterol sulfate 90 mcg/actuation 2 puff INHALATION Q4H PRN 09/03/18 08/28/21 History aerosol inhaler (Ventolin HFA) carbamazepine 100 mg chewable 150 mg PO BID 09/03/18 08/28/21 History tablet carbamazepine 300 mg 600 mg PO BID 09/03/18 08/28/21 History capsule,extended release [id number] (Carbatrol) ondansetron 4 mg disintegrating 4 mg PO Q6H PRN #20 tab 11/05/19 08/28/21 Rx tablet bisacodyl 10 mg rectal suppository 10 mg TN DAILY PRN 08/28/21 08/28/21 History (Dulcolax (bisacodyl)) polyethylene glycol 3350 17 17 g PO DAILY PRN 08/28/21 08/28/21 History gram/dose oral powder (Miralax) sennosides 8.6 mg tablet (senna) 8.6 mg PO BID 08/28/21 08/28/21 History valacyclovir 500 mg tablet 500 mg PO TID PRN 08/28/21 08/28/21 History venlafaxine 75 mg capsule,extended 75 mg PO QAM 08/28/21 08/28/21 History release 24 hr Patient History Medical History (Updated 08/28/21 @ 22:48 by Tutu Comer MD) Anxiety Asthma Depression Dystonia Hepatic vein thrombosis Liver lesion, right lobe Pituitary adenoma PVT (portal vein thrombosis) Restless leg syndrome Seizure disorder Surgical History History of dental surgery Hx of tubal ligation Family History Other Hypertension Social History Smoking Status: Unknown if ever smoked Tobacco Type: E-cigarettes / Vaping Preferred Language: Sen[place]ales[place] Communication Ability: Effective Communication Ability Comment: Unknown, paitent only alert to person. Unable to answer assessment question Weaver Hand Required: No Beliefs That Will Affect Care: None Current Living Situation: Spouse Current Living Situation Comment: Feels Safe at Home: Yes Assistive Devices: None Physical Exam Physical Exam: Patient appears stated age. No distress. talking on phone. Awake. Head is normocephalic atraumatic. Normal conjuctive. No ptosis. Neck supple. able to touch chin to chest. Breathing non labored. Pulse intact. No edema. No skin rash. Mood normal. Speech is clear although tangential. Tongue midline. No abrasion. Eyes midline EOMI. Following simple commands. No focal weakness. High arched feet. no shaw sign. No myoclonic jerks. No ataxia with finger to nose but touchs [place] on the right. No clonus. Toe upgoing on the right Results & Data ([facility]) Vital Signs (Past 12 Hours) Vital Signs Temp Pulse Pulse Resp BP BP Pulse Ox 08/29/21 10:50 36.7 C 102 H 15 100/60 100 08/29/21 07:25 36.9 C 99 H 16 98/56 L 99 08/29/21 07:15 37.0 C 104 H 18 105/58 L 100 08/29/21 07:07 100 H 08/29/21 04:46 37.3 C 101 H 18 102/65 99 08/29/21 02:06 103 H Laboratory Results Abnormal lab results 08/28/21 08/28/21 08/28/21 Range/Units 16:12 16:12 16:12 WBC 21.63 H (4.8-10.8) K/uL RBC (4.2-5.4) M/uL Hgb (12.0-16.0) g/dL Hct (37-47) % RDW Std Deviation (36.4-46.3) fL Plt Count 429 H (130-400) K/uL Neut # (Auto) 19.67 H (1.4-6.5) K/uL Lymph # (Auto) 0.61 L (1.2-3.4) K/uL Stokes # (Auto) 1.25 H (0.11-0.59) K/uL Immature Gran # (Auto) 0.10 H (0.00-0.02) K/uL VBG pH (7.36-7.41) VBG pCO2 (38-50) mmHg Chloride (98-107) mmol/L Carbon Dioxide 17 L (21-32) mmol/L Anion Gap 20 H (3-11) Lactate 2.2 H* (0.4-2.0) mmol/L Calcium (8.5-10.1) mg/dl Alkaline Phosphatase 132 H (34-104) U/L Total Protein 8.6 H (6.0-8.3) gm/dl Lipase 8 L (11-82) U/L Ur Specific [place] (1.000-1.030) Urine Protein (Negative) Urine Ketones (Negative) Urine Blood (Negative) Urine RBC (Auto) (0-4) /hpf U Epithel Cells (Auto) (0-5) /lpf CSF Glucose (40-70) mg/dl CSF Total Protein (15-45) mg/dl Salicylates (3.0-30) mg/dl Acetaminophen (10-30) ug/ml Phenytoin (10-20) mcg/ml Carbamazepine (4-12) mcg/ml U Marijuana (THC) Screen (Neg) 08/28/21 08/28/21 08/28/21 Range/Units 16:12 16:25 16:25 WBC (4.8-10.8) K/uL RBC (4.2-5.4) M/uL Hgb (12.0-16.0) g/dL Hct (37-47) % RDW Std Deviation (36.4-46.3) fL Plt Count (130-400) K/uL Neut # (Auto) (1.4-6.5) K/uL Lymph # (Auto) (1.2-3.4) K/uL Stokes # (Auto) (0.11-0.59) K/uL Immature Gran # (Auto) (0.00-0.02) K/uL VBG pH (7.36-7.41) VBG pCO2 (38-50) mmHg Chloride (98-107) mmol/L Carbon Dioxide (21-32) mmol/L Anion Gap (3-11) Lactate (0.4-2.0) mmol/L Calcium (8.5-10.1) mg/dl Alkaline Phosphatase (34-104) U/L Total Protein (6.0-8.3) gm/dl Lipase (11-82) U/L Ur Specific [place] 1.032 H (1.000-1.030) Urine Protein 1+ H (Negative) Urine Ketones 4+ H (Negative) Urine Blood Trace H (Negative) Urine RBC (Auto) 5-10 H (0-4) /hpf U Epithel Cells (Auto) 20-30 H (0-5) /lpf CSF Glucose (40-70) mg/dl CSF Total Protein (15-45) mg/dl Salicylates < 3.0 L (3.0-30) mg/dl Acetaminophen < 3 L (10-30) ug/ml Phenytoin < 3.0 L (10-20) mcg/ml Carbamazepine 3.3 L (4-12) mcg/ml U Marijuana (THC) Screen Pos H (Neg) 08/28/21 08/28/21 08/29/21 Range/Units 16:35 18:30 06:36 WBC 12.61 H (4.8-10.8) K/uL RBC 3.66 L (4.2-5.4) M/uL Hgb 11.2 L D (12.0-16.0) g/dL Hct 34.1 L (37-47) % RDW Std Deviation 46.8 H (36.4-46.3) fL Plt Count (130-400) K/uL Neut # (Auto) 9.61 H (1.4-6.5) K/uL Lymph # (Auto) (1.2-3.4) K/uL Stokes # (Auto) 1.43 H (0.11-0.59) K/uL Immature Gran # (Auto) 0.05 H (0.00-0.02) K/uL VBG pH 7.48 H (7.36-7.41) VBG pCO2 26 L (38-50) mmHg Chloride (98-107) mmol/L Carbon Dioxide (21-32) mmol/L Anion Gap (3-11) Lactate (0.4-2.0) mmol/L Calcium (8.5-10.1) mg/dl Alkaline Phosphatase (34-104) U/L Total Protein (6.0-8.3) gm/dl Lipase (11-82) U/L Ur Specific [place] (1.000-1.030) Urine Protein (Negative) Urine Ketones (Negative) Urine Blood (Negative) Urine RBC (Auto) (0-4) /hpf U Epithel Cells (Auto) (0-5) /lpf CSF Glucose 73 H (40-70) mg/dl CSF Total Protein 50.1 H (15-45) mg/dl Salicylates (3.0-30) mg/dl Acetaminophen (10-30) ug/ml Phenytoin (10-20) mcg/ml Carbamazepine (4-12) mcg/ml U Marijuana (THC) Screen (Neg) 08/29/21 08/29/21 Range/Units 06:36 06:36 WBC (4.8-10.8) K/uL RBC (4.2-5.4) M/uL Hgb (12.0-16.0) g/dL Hct (37-47) % RDW Std Deviation (36.4-46.3) fL Plt Count (130-400) K/uL Neut # (Auto) (1.4-6.5) K/uL Lymph # (Auto) (1.2-3.4) K/uL Stokes # (Auto) (0.11-0.59) K/uL Immature Gran # (Auto) (0.00-0.02) K/uL VBG pH (7.36-7.41) VBG pCO2 (38-50) mmHg Chloride 110 H (98-107) mmol/L Carbon Dioxide 16 L (21-32) mmol/L Anion Gap 12 H (3-11) Lactate (0.4-2.0) mmol/L Calcium 7.3 L D (8.5-10.1) mg/dl Alkaline Phosphatase (34-104) U/L Total Protein (6.0-8.3) gm/dl Lipase (11-82) U/L Ur Specific [place] (1.000-1.030) Urine Protein (Negative) Urine Ketones (Negative) Urine Blood (Negative) Urine RBC (Auto) (0-4) /hpf U Epithel Cells (Auto) (0-5) /lpf CSF Glucose (40-70) mg/dl CSF Total Protein (15-45) mg/dl Salicylates (3.0-30) mg/dl Acetaminophen (10-30) ug/ml Phenytoin 22.2 H (10-20) mcg/ml Carbamazepine (4-12) mcg/ml U Marijuana (THC) Screen (Neg) Diagnostic Findings CT c spine-No acute fracture or subluxation. Age advanced degenerative changes as above. CXR-the cardiomediastinal and hilar silhouettes are within normal limits. No pneumothorax, pleural effusion, airspace consolidation or overt pulmonary edema. Bones of the chest appear grossly intact. CT head-Motion degraded exam. No acute intracranial abnormality. (1) AMS (altered mental status) Altered mental status type: unspecified Qualified Code(s): R41.82 - Altered mental status, unspecified
[2021-08-29] MEDS: ACYCLOVIR SOD 600 MG in DEXTROSE 5% 100 ML IV SCH ×2 (13:00→21:37)
[2021-08-29] MEDS: ACETAMINOPHEN 325 MG TAB PO PRN (14:41)
[2021-08-29] MEDS: LORazepam 0.5 MG TAB PO PRN ×2 (14:41→22:41)
--- NOTE | 2021-08-29 16:56 | Hospitalist Progress Note ---
Date of Service August 29, 2021 Assessment & Plan (1) Encephalopathy: (2) Seizure: Plan: Possible related to Seizure Need to r/o viral [employer] encephalitis CT head showed no acute intracranial abnormality LP done showed no organism and no growth on preliminary cx On admission received IV Vanco, Rocephin and acyclovir LP results showed no evidence of bacterial etiology- did not continue abx HSV PCR pending Continue IV acyclovir for now Neurology on board Continue outpatient seizure meds Continue IV Ativan prn for breakthrough seizure Continue seizure and fall precaution We will monitor closely Elevated WBC Possible reactive due to seizure WBC on admission 21K then improved to to 12.6 K Need to rule out bacteria or viral etiology Continue monitor CBC Marijuana abuse UDS positive for Marijuana Counseling on Marijuana abuse Anxiety Patient said lately she has been taking Ativan 1 mg 4 times daily Anxiety seems to worsening Continue venlafaxine We will consult psych Hepatic vein thrombosis Status post Coumadin treatment Stable DVT prophylaxis per Lovenox subcu Full code Patient requesting updates from providers. Mr. Nicholas Hwang, contact #[phone]. Admission and Anticipated Discharge Date Admission Date: August 28, 2021 Subjective Patient was seen and examined for follow-up on seizure-like activities Lying in bed with no acute distress Patient is very anxious, restless with fluctuated mood She is unable to stay focused and seems to be confused at time Denies any chest pain, palpitation, dizziness, shortness of breath. Review of Systems Review of Systems: All systems reviewed & are unremarkable except as noted in Subjective Physical Exam Physical Exam: General- No acute distress Head- atraumatic Eyes- PERRL, EOMI, ENT- oropharynx clear Neck- supple, no JVD Lungs- clear to auscultation Heart- regular rhythm; no murmur Abdomen- normal bowel sounds, soft, nontender Extremities- no calf tenderness Neuro- alert, oriented x 3; PERRL, EOMI; no facial palsy; no dysarthria, follow command Skin- warm & dry Results & Data Results & Data ([facility]) Vital Signs (Past 12 Hours) Vital Signs Temp Pulse Pulse Resp BP Pulse Ox 08/29/21 15:32 103 H 08/29/21 14:50 36.7 C 102 H 18 114/64 98 08/29/21 10:50 36.7 C 102 H 15 100/60 100 08/29/21 07:25 36.9 C 99 H 16 98/56 L 99 08/29/21 07:15 37.0 C 104 H 18 105/58 L 100 08/29/21 07:07 100 H
[2021-08-29] MEDS: PHENYTOIN SODIUM ER 100 MG CAP PO SCH (21:36)
[2021-08-30] MEDS: PROMETHAZINE HCL 12.5 MG in SODIUM CHLORIDE 0.9% 50 ML IV PRN ×4 (01:30→19:57)
[2021-08-30] MEDS: ACYCLOVIR SOD 600 MG in DEXTROSE 5% 100 ML IV SCH ×3 (05:35→22:42)
[2021-08-30 06:51] LABS: Hematocrit (blood only) 36.4 % (37-47); Hemoglobin 12.3 g/dL (12.0-16.0); Mean Corpuscular Hgb Conc 33.8 g/dL (32-36); Mean Corpuscular Volume 91.7 fL (80-100); Mean Platelet Volume 8.2 fL (7.4-10.4); Platelet Count 276 K/uL (130-400); RDW Coefficient of Variation 13.6 % (11.5-14.5); RDW Standard Deviation 45.3 fL (36.4-46.3); Red Blood Count 3.97 M/uL (4.2-5.4); White Blood Count 10.63 K/uL (4.8-10.8)
--- NOTE | 2021-08-30 06:52 | CT Scan Report ---
CT head/brain wo con CLINICAL HISTORY: 31 years-old Female with transient blindness. Acute visual loss with confusion TECHNIQUE: Multiple axial CT images of the head were obtained without contrast. A dose lowering tech nique was utilized adhering to the principles of ALARA. CT DOSE: 1074.96 mGy.cm COMPARISON: Head CT 08/28/2021 FINDINGS: No acute intracranial hemorrhage, midline shift, intracranial mass, hydrocephalus, territorial ischem ia or abnormal extra-axial collection. The calvarium is intact. The paranasal sinuses, mastoid air cells, and middle ear cavities are clear . IMPRESSION: No acute intracranial abnormality. ACT 112: Negative or not required by law. The above report was generated using voice recognition software. It may contain grammatical, syntax o r spelling errors. Electronically signed by: Omid Schulz M.D. 08/30/2021 6:51 AM
[2021-08-30 07:20] LABS: Calcium 8.8 mg/dl (8.5-10.1); Creatinine Clr Calc Pharmacy 144.3 ml/min; Est GFR (African American) 141.2 ml/min; Est GFR (Non-African American) 121.8 ml/min
[2021-08-30] MEDS: LORazepam 0.5 MG TAB PO PRN (07:55)
[2021-08-30] MEDS: VENLAFAXINE HCL XR 75 MG CAPXR PO SCH (08:53)
[2021-08-30] MEDS: VENLAFAXINE HCL XR 150 MG CAPXR PO SCH (08:53)
[2021-08-30] MEDS: carBAMazepine 100 MG CHEW TAB PO SCH ×2 (08:54→21:17)
[2021-08-30] MEDS: ENOXAPARIN INJ 40 MG/0.4 ML SYR SQ SCH (08:55)
[2021-08-30] MEDS: ACETAMINOPHEN 325 MG TAB PO PRN ×3 (08:58→23:44)
[2021-08-30] MEDS ORDERED: POTASSIUM CHLORIDE CRTAB 20 MEQ TABCR PO STA (09:20)
[2021-08-30] MEDS: LORazepam 1 MG TAB PO SCH ×2 (11:27→21:14)
--- NOTE | 2021-08-30 11:41 | Psychiatric Consultation ---
Date of Consultation August 30, 2021 Impression / Recommendations Impression The patient is a 31 yo female with a history of depression and pseudoseizures presenting with AMS. Appears more delirious than manic, primarily visual flynn and ideas of reference. Thoughts are very disorganized and suggest that perhaps her reports of increase in anxiety at this point were really early psychotic process, likely substance induced from MJ use. Her tox screen was negative for benzos despite recent rx of 4 mg daily so first need to rule out substance withdrawal delirium. Presentation would be pretty dramatic for an Effexor discontinuation syndrome but could be contributing factor in prolonging her GI upset, no reported hx of pot hypermesis syndrome. (1) Encephalopathy: (2) Seizure: will attempt to determine baseline MJ use and level of THC liaison reaching out to for collateral and check pill counts on Ativan to determine recent use---I'd resume Ativan 1 mg Tid standing at this time and monitor symptoms. Withdrawal delirium should improve. In meantime cover, the dose of Zyprexa 2.5 mg prn could be increased to 5 mg if requires IM for agitation to better target the psychotic features. patient does not have capacity to sign out AMA. Psych History Identifying Data Donya is a [address] [facility] on 08/28/21 for AMS s/p seizure episode. She has a history of pseudoseizures as well. Consult is by Dr. Granger for anxiety. The number [phone] rings through to [facility] Guallpa so no collateral at this time other than what is already documented on the chart. Chief Complaint "Did you see that? That was magic. Are you hyponotizing me?". History of Present Illness There are reports patient missed her medications for a few days due to GI issues. PDMP confirms that she has been receiving 120 tabs of Ativan 1 mg QID for several months from Dr. Carter so unclear if solely for anxiety or also augmentation for chronic seizure disorder. Of interest, urine tox in ED was positive for MJ only. 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 It's documented on the chart that as her anxiety has increased she's actually been using less but unclear previous amount or THC/CBD ratios. She was admitted for seizure activity and is being followed by neurology. She has a long hx of MJ use, seizures, and psuedoseizures and was hospitalized here in 2013 for major depression. She was a few months post at that time. She was clearly responding to internal stimuli when I walked in the room, misunderstood that I was replacing Dr. Eldridge. She tried to explain auditory hallucinations and then was distracted by a flash of light and thought I was trying to hypnotize her but found it funny. She is not able to describe her anxiety symptoms at this time but did complete a CON-7 last night for the liaison and scored 19/21 for feeling nervous, trouble relaxing, racing thoughts, irritability, etc. She indicated that THC was helpful for relaxing. Past Psychiatric History Previous Psych History: remote services with [facility] Current Psychiatric Diagnosis: depression, CON Outpatient Services: [facility] Previous Psych Admissions: at least 4 starting at age 16. She reports most recent was 2016 at [facility] but I do not see that in historical visits. She reported a stay at the [facility]. I reviewed her 2013 admission note as she is too organized at this time to give much history. History of Previous Suicide Attempt: Yes (H&P from 2013 notes 3-4 prior OD attempts) Past Medication Trials: unsure--has taken Buspar with positive results, described Klonopin like "having a gun in your pocket" on previous H&P. Allergies Allergy/AdvReac Type Severity Reaction Status Date / Time prednisone AdvReac Intermediate DILANTIN Verified 08/28/21 16:44 TOXICITY sulfamethoxazole AdvReac Intermediate BURNING,ALIX Verified 08/28/21 16:44 RRHEA trimethoprim AdvReac Intermediate BURNING,ALIX Verified 08/28/21 16:44 RRHEA Home Medications Medication Instructions Recorded Confirmed Type lorazepam 1 mg tablet 1 mg PO QID PRN 08/09/18 08/28/21 History phenytoin sodium extended 100 mg See Rx Instructions .ROUTE .COMPLEX 08/09/18 08/28/21 History capsule (Dilantin Extended) venlafaxine 150 mg 150 mg PO QAM 08/09/18 08/28/21 History capsule,extended release 24 hr (Effexor XR) albuterol sulfate 90 mcg/actuation 2 puff INHALATION Q4H PRN 09/03/18 08/28/21 History aerosol inhaler (Ventolin HFA) carbamazepine 100 mg chewable 150 mg PO BID 09/03/18 08/28/21 History tablet carbamazepine 300 mg 600 mg PO BID 09/03/18 08/28/21 History capsule,extended release [id number] (Carbatrol) ondansetron 4 mg disintegrating 4 mg PO Q6H PRN #20 tab 11/05/19 08/28/21 Rx tablet bisacodyl 10 mg rectal suppository 10 mg NC DAILY PRN 08/28/21 08/28/21 History (Dulcolax (bisacodyl)) polyethylene glycol 3350 17 17 g PO DAILY PRN 08/28/21 08/28/21 History gram/dose oral powder (Miralax) sennosides 8.6 mg tablet (senna) 8.6 mg PO BID 08/28/21 08/28/21 History valacyclovir 500 mg tablet 500 mg PO TID PRN 08/28/21 08/28/21 History venlafaxine 75 mg capsule,extended 75 mg PO QAM 08/28/21 08/28/21 History release 24 hr Family History hx of depression and Etoh in mother, ETOH in maternal gma, sis bipolar, bro ADHD, bro depression per records Substance Abuse History chronic regular, suspect heavy MJ use Personal History Living Arrangements: Home (with , chart states 2 children in 2013) Childhood: grew up in [place], intact family, may have been corporal punishment Highest Grade Completed: High School Graduate ((GED per 2013 records)) Employment Status: Disabled Marital Status: Beliefs That Will Affect Care: None History of Legal Problems: unclear Patient History Medical History Anxiety Asthma Depression Dystonia Hepatic vein thrombosis Liver lesion, right lobe Pituitary adenoma PVT (portal vein thrombosis) Restless leg syndrome Seizure disorder Surgical History History of dental surgery Hx of tubal ligation Family History Other Hypertension Social History Smoking Status: Unknown if ever smoked Tobacco Type: E-cigarettes / Vaping Preferred Language: [place] Leone[place] Communication Ability: Effective Communication Ability Comment: Unknown, paitent only alert to person. Unable to answer assessment question Manager Domestic Required: No Beliefs That Will Affect Care: None Current Living Situation: Spouse Current Living Situation Comment: Feels Safe at Home: Yes Assistive Devices: None Physical Exam Psychiatric: Orientation: alert and oriented to person Apperance: appropriately groomed Eye Contact: + fair eye contact Motor Behavior: no abnormal motor movements Speech: + abnormal rate/rhythm/volume of speech (dysarthric) Affect: no labile affect Mood: no depressed mood (expansive) Thought Process: + tangential thought process and + looseness of associations Thought Content: + delusions (bordering on paranoid) Suicidal Thoughts: denies suicidal thoughts Homicidal Thoughts: denies homicidal thoughts Hallucinations: + visual hallucinations; no auditory hallucinations Cognition: language grossly intact; + attention not intact Estimated Intelligence: consistent with education level Insight: + poor insight Judgement: + poor judgement Vital Signs (Past 24 Hours): Last Vital Signs Temp 36.4 C L 08/30/21 08:00 Pulse 83 08/30/21 08:00 Resp 20 08/30/21 08:00 BP 129/87 08/30/21 08:00 Pulse Ox 100 08/30/21 08:00 Review of Systems Unobtainable due to cognitive status Results & Data (PSY) Laboratory Results 08/30/21 08/30/21 08/30/21 Range/Units 06:32 06:29 06:29 WBC 10.63 (4.8-10.8) K/uL RBC 3.97 L (4.2-5.4) M/uL Hgb 12.3 (12.0-16.0) g/dL Hct 36.4 L (37-47) % MCV 91.7 (80-100) fL MCH 31.0 (25-34) pg MCHC 33.8 (32-36) g/dL RDW Std Deviation 45.3 (36.4-46.3) fL RDW Coeff of Erika 13.6 (11.5-14.5) % Plt Count 276 (130-400) K/uL MPV 8.2 (7.4-10.4) fL Sodium 136 (136-145) mmol/L Potassium 3.4 L (3.5-5.1) mmol/L Chloride 106 (98-107) mmol/L Carbon Dioxide 14 L (21-32) mmol/L Anion Gap 16 H (3-11) BUN 4 L (6-23) mg/dl Creatinine 0.57 L (0.6-1.2) mg/dl Est Cr Clr Drug Dosing 144.3 ml/min Est GFR ( Amer) 141.2 ml/min Est GFR (Non-Af Amer) 121.8 ml/min BUN/Creatinine Ratio 7.0 L (10-20) Glucose 83 (70-99(Fasting)) mg/dl POC Glucose (70-99) mg/dl Calcium 8.8 (8.5-10.1) mg/dl 08/29/21 Range/Units 21:17 WBC (4.8-10.8) K/uL RBC (4.2-5.4) M/uL Hgb (12.0-16.0) g/dL Hct (37-47) % MCV (80-100) fL MCH (25-34) pg MCHC (32-36) g/dL RDW Std Deviation (36.4-46.3) fL RDW Coeff of Erika (11.5-14.5) % Plt Count (130-400) K/uL MPV (7.4-10.4) fL Sodium (136-145) mmol/L Potassium (3.5-5.1) mmol/L Chloride (98-107) mmol/L Carbon Dioxide (21-32) mmol/L Anion Gap (3-11) BUN (6-23) mg/dl Creatinine (0.6-1.2) mg/dl Est Cr Clr Drug Dosing ml/min Est GFR ( Amer) ml/min Est GFR (Non-Af Amer) ml/min BUN/Creatinine Ratio (10-20) Glucose (70-99(Fasting)) mg/dl POC Glucose 85 (70-99) mg/dl Calcium (8.5-10.1) mg/dl Diagnostic Findings Abdomen/Pelvis CT 08/28/21 16:[address] WITHOUT CONTRAST HISTORY: Acute generalized abdominal pain AMS TECHNIQUE: Multiaxial CT images of the abdomen and pelvis were performed without contrast. A dose lowering technique was utilized adhering to the principles of ALARA. COMPARISON STUDY: 09/24/2018 FINDINGS: Respiratory motion artifact limits the study. The study is also limited secondary to upper extremity positioning and lack of contrast. Clear lung bases. No pneumatosis or pneumoperitoneum. The unenhanced spleen, pancreas, adrenal glands, gallbladder and liver appear unremarkable. The previous noted 1.5 cm lesion of the inferior right hepatic lobe is better seen on the comparison study. Unremarkable kidneys. No hydronephrosis. 4 mm calcification along the posterior margin of the urinary bladder on image 409 is unchanged suggestive of a phlebolith. The urinary bladder, uterus and adnexa are within normal limits. Unremarkable abdominal aorta. No adenopathy. No bowel obstruction or bowel wall thickening. No ascites or mesenteric inflammation. Normal appendix. Unremarkable soft tissues. Moderate L4-L5 intervertebral disc space narrowing with small posterior disc osteophyte complex. No acute fracture. IMPRESSION: 1. Limited exam as above. 2. No acute intra-abdominal or intrapelvic abnormality. 3. Normal appendix. ACT 112: Negative or not required by law. The above report was generated using voice recognition software. It may contain grammatical, syntax or spelling errors. Electronically signed by: Omid Schulz M.D. 08/28/2021 5:[address] 08/28/21 16:01 CT cervical spine wo con CLINICAL HISTORY: 31 years-old Female with AMS. Acutely altered mental status. Acute neck injury COMPARISON: Head CT of same day TECHNIQUE: Multiple axial CT images of the cervical spine were obtained without contrast. A dose lowering technique was utilized adhering to the principles of ALARA. FINDINGS: Multilevel intervertebral disc space narrowing is age advanced severe at C5-C6. Moderate multilevel bridging osteophytosis with uncovertebral spurring and posterior disc osteophyte complex formations. Moderate multilevel facet arthrosis. The study is motion degraded. Multilevel neural foraminal narrowing. No acute fracture, subluxation or endplate erosion. No prevertebral edema. Lung apices are clear. IMPRESSION: 1. No acute fracture or subluxation. 2. Age advanced degenerative changes as above. ACT 112: Negative or not required by law. The above report was generated using voice recognition software. It may contain grammatical, syntax or spelling errors. Electronically signed by: Omid Schulz M.D. 08/28/2021 5:11 PM Chest X-Ray 08/28/21 16:01 XR chest 1V portable HISTORY: 31 years-old Female AMS acute chest pain COMPARISON: Acute abdominal series radiographs 11/05/2019 TECHNIQUE: Portable AP view of the chest FINDINGS: The cardiomediastinal and hilar silhouettes are within normal limits. No pneumothorax, pleural effusion, airspace consolidation or overt pulmonary edema. Bones of the chest appear grossly intact. IMPRESSION: No acute process. ACT 112: Negative or not required by law. The above report was generated using voice recognition software. It may contain grammatical, syntax or spelling errors. Electronically signed by: Omid Schulz M.D. 08/28/2021 5:[address] 08/28/21 16:02 CT head/brain wo con CLINICAL HISTORY: 31 years-old Female with AMS. Acutely altered mental status TECHNIQUE: Multiple axial CT images of the head were obtained without contrast. A dose lowering technique was utilized adhering to the principles of ALARA. CT DOSE: 2145.00 mGy.cm COMPARISON: Head CT 10/01/2018 FINDINGS: No acute intracranial hemorrhage, midline shift, intracranial mass, hydrocephalus, territorial ischemia or abnormal extra-axial collection. Age- related involutional changes. Study is motion degraded. The calvarium is intact. The paranasal sinuses, mastoid air cells, and middle ear cavities are clear. IMPRESSION: Motion degraded exam. No acute intracranial abnormality. ACT 112: Negative or not required by law. The above report was generated using voice recognition software. It may contain grammatical, syntax or spelling errors. Electronically signed by: Omid Schulz M.D. 08/28/2021 5:[address] 08/29/21 20:59 CT head/brain wo con CLINICAL HISTORY: 31 years-old Female with transient blindness. Acute visual loss with confusion TECHNIQUE: Multiple axial CT images of the head were obtained without contrast. A dose lowering technique was utilized adhering to the principles of ALARA. CT DOSE: 1074.96 mGy.cm COMPARISON: Head CT 08/28/2021 FINDINGS: No acute intracranial hemorrhage, midline shift, intracranial mass, hydrocephalus, territorial ischemia or abnormal extra-axial collection. The calvarium is intact. The paranasal sinuses, mastoid air cells, and middle ear cavities are clear. IMPRESSION: No acute intracranial abnormality. ACT 112: Negative or not required by law. The above report was generated using voice recognition software. It may contain grammatical, syntax or spelling errors. Electronically signed by: Omid Schulz M.D. 08/30/2021 6:51 AM Medications Administered Acetaminophen (Acetaminophen 325 Mg Tab) 650 mg PO Q4H PRN PRN Reason: Pain or Fever Stop: 09/27/21 22:09 Last Admin: 08/30/21 08:58 Dose: 650 mg Documented by: [id number] Admin: 08/29/21 14:41 Dose: 650 mg Documented by: [id number] Carbamazepine (Carbamazepine 100 Mg Chew Tab) 150 mg PO BID [facility] Stop: 09/27/21 22:09 Last Admin: 08/30/21 08:54 Dose: 150 mg Documented by: [id number] Admin: 08/29/21 21:36 Dose: 150 mg Documented by: [id number] Admin: 08/29/21 08:09 Dose: 150 mg Documented by: [id number] Admin: 08/28/21 23:03 Dose: 150 mg Documented by: [id number] Carbamazepine (Carbamazepine 200 Mg Tabcr) 600 mg PO BID [facility] Stop: 09/27/21 22:29 Last Admin: 08/30/21 08:54 Dose: 600 mg Documented by: [id number] Admin: 08/29/21 21:36 Dose: 600 mg Documented by: [id number] Admin: 08/29/21 08:10 Dose: 600 mg Documented by: [id number] Admin: 08/28/21 23:01 Dose: 600 mg Documented by: [id number] Enoxaparin Sodium (Enoxaparin Inj 40 Mg/0.4 Ml Syr) 40 mg SQ QAM [facility] Stop: 09/28/21 08:59 Last Admin: 08/30/21 08:55 Dose: 40 mg Documented by: [id number] Admin: 08/29/21 08:10 Dose: Not Given Documented by: [id number] Promethazine HCl 12.5 mg/ (Sodium Chloride) 50.5 mls @ 202 mls/hr IV Q6H PRN PRN Reason: Nausea And Vomiting Stop: 09/27/21 22:09 Last Infusion: 08/30/21 08:06 Dose: 0 mls/hr Documented by: [id number] Admin: 08/30/21 07:46 Dose: 202 mls/hr Documented by: [id number] Infusion: 08/30/21 03:07 Dose: 0 mls/hr Documented by: [id number] Admin: 08/30/21 01:30 Dose: 202 mls/hr Documented by: [id number] Acyclovir Sodium 600 mg/ (Dextrose) 112 mls @ 100 mls/hr IV Q8H DWAYNE; Protocol Stop: 09/08/21 10:44 Last Infusion: 08/30/21 06:47 Dose: 0 mls/hr Documented by: [id number] Admin: 08/30/21 05:35 Dose: 100 mls/hr Documented by: [id number] Infusion: 08/29/21 22:44 Dose: 0 mls/hr Documented by: [id number] Admin: 08/29/21 21:37 Dose: 100 mls/hr Documented by: [id number] Infusion: 08/29/21 14:15 Dose: 0 mls/hr Documented by: [id number] Admin: 08/29/21 13:00 Dose: 100 mls/hr Documented by: [id number] Lorazepam (Lorazepam 1 Mg Tab) 1 mg PO Q8H [facility] Stop: 09/29/21 11:58 Last Admin: 08/30/21 11:27 Dose: 1 mg Documented by: [id number] Phenytoin Sodium (Phenytoin Sodium Er 100 Mg Cap) 200 mg PO HS [facility] Stop: 09/27/21 22:29 Last Admin: 08/29/21 21:36 Dose: 200 mg Documented by: [id number] Admin: 08/28/21 23:02 Dose: 200 mg Documented by: [id number] Venlafaxine HCl (Venlafaxine Hcl Xr 75 Mg Capxr) 75 mg PO QAM [facility] Stop: 09/28/21 08:59 Last Admin: 08/30/21 08:53 Dose: 75 mg Documented by: [id number] Admin: 08/29/21 08:09 Dose: 75 mg Documented by: [id number] Venlafaxine HCl (Venlafaxine Hcl Xr 150 Mg Capxr) 150 mg PO QAM [facility] Stop: 09/28/21 08:59 Last Admin: 08/30/21 08:53 Dose: 150 mg Documented by: [id number] Admin: 08/29/21 08:09 Dose: 150 mg Documented by: [id number] Coding Level of Care Code 57665 Inpt Consult Level 3 Diagnoses Encephalopathy G93.40 Seizure R56.9
[2021-08-30] MEDS: IBUPROFEN 200 MG TAB PO PRN (13:30)
[2021-08-30] MEDS ORDERED: KETOROLAC TROMETHAMINE 15 MG/ML VIAL IV ONE ×2 (14:45→20:09)
[2021-08-30 16:02] LABS: Appearance Urine Clear (Clear); Bacteria Urine Automated Negative (Negative); Bilirubin Urine Negative (Negative); Blood Urine 2+ (Negative); Color Urine Yellow; Glucose Urine UA Negative (Negative); Ketones Urine 4+ (Negative); Leukocyte Esterase Urine Negative (Negative); Nitrite Urine Negative (Negative); Protein Urine Negative (Negative); Specific Gravity Urine 1.016 (1.000-1.030); Urobilinogen Urine Negative (Negative); pH Urine 5.5 (4.5-7.5)
--- NOTE | 2021-08-30 17:51 | Neurology Progress Note ---
Date of Service August 30, 2021 Assessment & Plan (1) Seizure: Plan: A 31 yo woman with suspected breakthough seizure in setting of N/V and poor PO intake. Home AED levels low. Work up including LP not suggestive of infectious etiology. Mildly elevate CSF protein may be related to recent seizure. Some odd behaviors concerning for functional overlay as examine fluctuates since admission. Touching 's nose this afternoon and then returning to sleep. Arouses to voice. But non verbal. Recommend to continue home seizure medications. Dilantin Level and Tegretol levels improved, last checked on 08/29. Admission and Anticipated Discharge Date Admission Date: August 28, 2021 Subjective Patient was seen and examined this afternoon. at bedside. Repeat CT head overnight. Wakes to voice. Touches nose with finger. Looking to the left. non verbal. Fell back to sleep or closed her eyes. Physical Exam Physical Exam: Arouses to voice. Sleepy. Not cooperating for examine. Eyes midline. Pupils symmetric. no facial assymetry. Moving all 4 extremities. Appears in no distres. Results & Data ([facility]) Vital Signs (Past 12 Hours) Vital Signs Temp Pulse Pulse Resp BP Pulse Ox 08/30/21 16:29 101 H 08/30/21 15:36 36.4 C L 98 H 20 113/71 99 08/30/21 12:08 36.6 C 104 H 20 133/89 100 08/30/21 08:00 36.4 C L 83 20 129/87 100 08/30/21 07:35 113 H Laboratory Results Dilantin level 22, Tegretol level 5 HSV PCR None detected. CSF no growth Diagnostic Findings CT head non contrast on 08/29/21: No acute inrtacranial abnormality.
--- NOTE | 2021-08-30 19:44 | Hospitalist Progress Note ---
Date of Service August 30, 2021 Assessment & Plan (1) Encephalopathy: (2) Seizure: Plan: Possible related to Seizure vs medication withdrawal Need to r/o viral [employer]IST[facility] encephalitis CT head showed no acute intracranial abnormality LP done showed no organism and no growth on preliminary cx On admission received IV Vanco, Rocephin and acyclovir LP results showed no evidence of bacterial etiology- did not continue abx HSV PCR negative - Will D/C IV acyclovir Neurology on board Continue outpatient seizure meds Continue IV Ativan prn for breakthrough seizure Continue seizure and fall precaution We will monitor closely Elevated WBC Possible reactive due to seizure WBC on admission 21K then improved to to 12.6 K - now normalized abx discontinued Continue monitor CBC Marijuana abuse UDS positive for Marijuana Counseling on Marijuana abuse Anxiety Patient said lately she has been taking Ativan 1 mg 4 times daily Psych on board Her symptoms might be related to drug withdrawal Psych recommended to start on Ativan 1mg TID Continue venlafaxine If develops any agitation, zyprexa prn can be given Pt cannot sign AMA Hepatic vein thrombosis Status post Coumadin treatment Stable DVT prophylaxis per Lovenox subcu Full code Disposition Update provided to at bedside Mr. Nicholas Hwang, contact #[phone]. Admission and Anticipated Discharge Date Admission Date: August 28, 2021 Subjective Patient was seen and examined for follow-up of seizure-like activities Lying in bed with no acute distress with at bedside Patient is very anxious, restless with bizarre behavior Nurse said that this morning she vomited once Pt said that she is having pain all over She was able to answer basic question Denies any chest pain, palpitation, dizziness, shortness of breath. Review of Systems Review of Systems: All systems reviewed & are unremarkable except as noted in Subjective Physical Exam Physical Exam: General- No acute distress, bizarre behavior Head- atraumatic Eyes- PERRL, EOMI, ENT- oropharynx clear Neck- supple, no JVD Lungs- clear to auscultation Heart- regular rhythm; no murmur Abdomen- normal bowel sounds, soft, nontender Extremities- no calf tenderness Neuro- alert, oriented x 3; PERRL, EOMI; no facial palsy; no dysarthria, follow command Skin- warm & dry Results & Data Results & Data ([facility]) Vital Signs (Past 12 Hours) Vital Signs Temp Pulse Pulse Resp BP Pulse Ox 03/15/22 16:29 101 H 08/30/21 15:36 36.4 C L 98 H 20 113/71 99 08/30/21 12:08 36.6 C 104 H 20 133/89 100 08/30/21 08:00 36.4 C L 83 20 129/87 100
[2021-08-30] MEDS ORDERED: LACTATED RINGER'S 1,000 ML IV ONE (20:08)
[2021-08-30] MEDS: PHENYTOIN SODIUM ER 100 MG CAP PO SCH (21:17)
[2021-08-30] MEDS ORDERED: OPTIRAY 320 100ml IV ONE (23:40)
[2021-08-31 02:21] LABS: Marijuana Quant, GCMS Urine 445 ng/mL (<5)
[2021-08-31 03:00] LABS: Appearance Urine Clear (Clear); Bacteria Urine Automated Negative (Negative); Bilirubin Urine Negative (Negative); Blood Urine 2+ (Negative); Cast Urine Automated 0 /lpf (0-5); Color Urine Yellow; Glucose Urine UA Negative (Negative); Ketones Urine 4+ (Negative); Leukocyte Esterase Urine Negative (Negative); Nitrite Urine Negative (Negative); Protein Urine Negative (Negative); Urobilinogen Urine Negative (Negative); pH Urine 5.5 (4.5-7.5)
[2021-08-31] MEDS: LORazepam 1 MG TAB PO SCH ×5 (05:10→21:57)
[2021-08-31] MEDS ORDERED: CALCIUM CARBONATE 500 MG CHEWABLE TAB PO PRN (05:34)
[2021-08-31] MEDS: ACYCLOVIR SOD 600 MG in DEXTROSE 5% 100 ML IV SCH (05:50)
--- NOTE | 2021-08-31 07:28 | CT Scan Report ---
CT OF THE ABDOMEN AND PELVIS WITH CONTRAST CLINICAL HISTORY: Right lower quadrant abdominal pain. COMPARISON STUDY: CT of the abdomen and pelvis August 28, 2021. TECHNIQUE: Following IV administration of 93 mL of Optiray, axial images of the abdomen and pelvis we re obtained from the lung bases to the proximal femurs. Images were reviewed in the axial, sagittal, and coronal planes. IV contrast was administered without complication. Automated exposure control wa s utilized for the study. A dose lowering technique was utilized adhering to the principles of ALARA . CT DOSE: 361.69 mGy.cm FINDINGS: Lung bases are unremarkable. No pneumatosis, free air or portal venous gas is present. Hepa tic steatosis is noted. No biliary or pancreatic ductal dilatation is present. No peripancreatic or p ericholecystic infiltration is present. The spleen, adrenal glands and pancreas are unremarkable. Mod erate right and mild left hydronephrosis is noted with trace right perinephric stranding. This findin g is new since recent CT of August 28, 2021 and likely related to bladder distention. There are no ure teral calculi. There is no evidence for a bowel obstruction. The right colon is mildly fluid-filled. Appendix is normal. Caliber and wall thickness of small and large bowel are normal. No lymphadenopath y or ascites is present. Major vasculature is patent. No acute fracture or suspicious lesion is ident ified within the visualized skeletal structures. IMPRESSION: 1. Moderate right and mild left hydronephrosis likely related to bladder distention. Trace right patt nephric stranding. No ureteral calculi. 2. No bowel obstruction. No bowel wall thickening. Normal appendix. Mildly fluid-filled colon. ACT 112: Negative or not required by law. Electronically signed by: Bacilio Garber M.D. 08/31/2021 7:27 AM
[2021-08-31 07:36] LABS: Hemoglobin 13.5 g/dL (12.0-16.0); Mean Corpuscular Hgb Conc 33.8 g/dL (32-36); Mean Corpuscular Volume 91.7 fL (80-100); Mean Platelet Volume 8.5 fL (7.4-10.4); Platelet Count 343 K/uL (130-400); RDW Coefficient of Variation 13.6 % (11.5-14.5); RDW Standard Deviation 45.3 fL (36.4-46.3); Red Blood Count 4.36 M/uL (4.2-5.4); White Blood Count 11.94 K/uL (4.8-10.8)
[2021-08-31 08:08] LABS: BUN Creatinine Ratio 7.8 (10-20); Calcium 9.1 mg/dl (8.5-10.1); Creatinine Clr Calc Pharmacy 128.5 ml/min; Est GFR (African American) 135.9 ml/min; Est GFR (Non-African American) 117.2 ml/min; Potassium 3.9 mmol/L (3.5-5.1)
[2021-08-31] MEDS: ENOXAPARIN INJ 40 MG/0.4 ML SYR SQ SCH (08:47)
[2021-08-31] MEDS: VENLAFAXINE HCL XR 150 MG CAPXR PO SCH (08:48)
[2021-08-31] MEDS: carBAMazepine 100 MG CHEW TAB PO SCH ×2 (08:48→21:58)
[2021-08-31] MEDS: VENLAFAXINE HCL XR 75 MG CAPXR PO SCH (08:49)
[2021-08-31] MEDS: OLANZAPINE 2.5 MG TAB PO SCH ×2 (09:24→21:58)
--- NOTE | 2021-08-31 12:05 | Psychiatric Progress Note ---
Date of Service August 31, 2021 Impression / Recommendations Impression The patient is a 31 yo female with a history of depression and pseudoseizures presenting with AMS. Appears more delirious than manic, primarily visual flynn and ideas of reference. Thoughts are very disorganized and suggest that perhaps her reports of increase in anxiety at this point were really early psychotic process, likely substance induced from MJ use. Her tox screen was negative for benzos despite recent rx of 4 mg daily so first need to rule out substance withdrawal delirium. Presentation would be pretty dramatic for an Effexor discontinuation syndrome but could be contributing factor in prolonging her GI upset, no reported hx of pot hyperemesis syndrome. 08/31/21: disorganization/delirium improved today in that she is better able to communicate her symptoms/more organized and no longer hallucinating but she is labile and paranoid. Her BP and pulse are trending up which could suggest ongoing withdrawal from benzos and/or anxiety related. 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 Her paranoia is either part of her delirium or subtance induced from MJ resulting in increased benzo use and running out early resulting in withdrawal and she actually verbalizes this herself today, at least the benzo part. increase Ativan to 1 mg QID home dose which is not for anxiety but per Dr. Palacios er for spasm/seizure. may need additional prn if more withdrawal symptoms. reviewed risks/benefits as able for antipsychotic medication which she consents to for her paranoia. Zyprexa 2.[address] Melissa notified. Liaison nurse checked on patient after and it was effective. Interval History Identifying Information Donya is a 31 yo female from [place] admit on 08/28/21 for AMS s/p seizure episode. She has a history of pseudoseizures as well. Consult is by Dr. Granger for anxiety. Chief Complaint "They are trying to kill me, I don't mean staff but people in general". Review of Systems Notes states she has leg spasms and uses wheelchair at baseline, cleaning in place Subjective Subjective Patient was seen & assessed and interval progress reviewed. Seen with nurse at bedside as patient tearful and calling out in fear with labile affect believing someone is trying to harm her. She is not responding to internal stimuli but has consistently made paranoid statements overnight, including that she'll be swept up by a vacuum (though could be misperception of flynn sweeper). Physical Exam Psychiatric Orientation: alert and oriented to person Apperance: appropriately groomed Eye Contact: + fair eye contact Motor Behavior: no abnormal motor movements Speech: + abnormal rate/rhythm/volume of speech (dysarthric (mildly)) Affect: + labile affect Mood: + anxious mood Thought Process: + perseveration and + concrete thought process Thought Content: + paranoid and + delusions Suicidal Thoughts: denies suicidal thoughts Homicidal Thoughts: denies homicidal thoughts Hallucinations: no auditory hallucinations and no visual hallucinations Cognition: language grossly intact; + attention not intact Estimated Intelligence: consistent with education level Insight: + poor insight Judgement: + poor judgement Vital Signs (Past 24 Hours) Last Vital Signs Temp 36.6 C 08/31/21 11:01 Pulse 103 H 08/31/21 11:01 Resp 16 08/31/21 11:01 BP 162/82 H 08/31/21 11:01 Pulse Ox 100 08/31/21 11:01 Results & Data ([facility]) Laboratory Results Laboratory Results - last 24 hr 08/28/21 08/30/21 08/31/21 16:25 15:30 02:37 WBC RBC Hgb Hct MCV MCH MCHC RDW Std Deviation RDW Coeff of Erika Plt Count MPV Sodium Potassium Chloride Carbon Dioxide Anion Gap BUN Creatinine Est Cr Clr Drug Dosing Est GFR ( Amer) Est GFR (Non-Af Amer) BUN/Creatinine Ratio Glucose Calcium Urine Color Yellow Yellow Urine Appearance Clear Clear Urine pH 5.5 5.5 Ur Specific [place] 1.016 1.030 Urine Protein Negative Negative Urine Glucose (UA) Negative Negative Urine Ketones 4+ H 4+ H Urine Blood 2+ H 2+ H Urine Nitrite Negative Negative Urine Bilirubin Negative Negative Urine Urobilinogen Negative Negative Ur Leukocyte Esterase Negative Negative Urine WBC (Auto) 1-5 1-5 Urine RBC (Auto) 5-10 H 10-30 H U Hyaline Cast (Auto) 1-5 0 U Epithel Cells (Auto) 5-10 H 5-10 H Urine Bacteria (Auto) Negative Negative U Marijuana THC Carboxy 445 H Drug Screen Comment SEE NOTE 08/31/21 08/31/21 06:47 06:47 WBC 11.94 H RBC 4.36 Hgb 13.5 Hct 40.0 MCV 91.7 MCH 31.0 MCHC 33.8 RDW Std Deviation 45.3 RDW Coeff of Erika 13.6 Plt Count 343 MPV 8.5 Sodium 134 L Potassium 3.9 Chloride 106 Carbon Dioxide 11 L Anion Gap 17 H BUN 5 L Creatinine 0.64 Est Cr Clr Drug Dosing 128.5 Est GFR ( Amer) 135.9 Est GFR (Non-Af Amer) 117.2 BUN/Creatinine Ratio 7.8 L Glucose 83 Calcium 9.1 Urine Color Urine Appearance Urine pH Ur Specific [place] Urine Protein Urine Glucose (UA) Urine Ketones Urine Blood Urine Nitrite Urine Bilirubin Urine Urobilinogen Ur Leukocyte Esterase Urine WBC (Auto) Urine RBC (Auto) U Hyaline Cast (Auto) U Epithel Cells (Auto) Urine Bacteria (Auto) U Marijuana THC Carboxy Drug Screen Comment Current Inpatient Medications Current Inpatient Medications: Current Inpatient Medications Acetaminophen (Acetaminophen 325 Mg Tab) 650 mg PO Q4H PRN PRN Reason: Pain or Fever Stop: 09/27/21 22:09 Last Admin: 08/30/21 23:44 Dose: 650 mg Documented by: Calcium Carbonate (Calcium Carbonate 500 Mg Chewable Tab) 500 mg PO Q6H PRN PRN Reason: Heartburn Stop: 09/30/21 05:33 Last Admin: 08/31/21 05:51 Dose: 500 mg Documented by: Carbamazepine (Carbamazepine 100 Mg Chew Tab) 150 mg PO BID [facility] Stop: 09/27/21 22:09 Last Admin: 08/31/21 08:48 Dose: 150 mg Documented by: Carbamazepine (Carbamazepine 200 Mg Tabcr) 600 mg PO BID [facility] Stop: 09/27/21 22:29 Last Admin: 08/31/21 08:49 Dose: 600 mg Documented by: Enoxaparin Sodium (Enoxaparin Inj 40 Mg/0.4 Ml Syr) 40 mg SQ QAM [facility] Stop: 09/28/21 08:59 Last Admin: 08/31/21 08:47 Dose: 40 mg Documented by: Promethazine HCl 12.5 mg/ (Sodium Chloride) 50.5 mls @ 202 mls/hr IV Q6H PRN PRN Reason: Nausea And Vomiting Stop: 09/27/21 22:09 Last Infusion: 08/30/21 20:12 Dose: Infused Documented by: Ibuprofen (Ibuprofen 200 Mg Tab) 200 mg PO Q6H PRN PRN Reason: Mild Pain Stop: 09/27/21 22:09 Last Admin: 08/30/21 13:30 Dose: 200 mg Documented by: Lorazepam (Lorazepam 2 Mg/1 Ml Vial) 1 mg IV Q10M PRN PRN Reason: active sz Stop: 09/27/21 22:09 Lorazepam (Lorazepam 1 Mg Tab) 1 mg PO QID [facility] Stop: 09/30/21 08:59 Last Admin: 08/31/21 09:24 Dose: 1 mg Documented by: Miscellaneous Information (Acyclovir Consult Active) 1 ea N/A UD PRN PRN Reason: Consult Stop: 09/28/21 08:59 Olanzapine (Olanzapine 10 Mg/2.1 Ml Sdv) 2.5 mg IM Q4H PRN PRN Reason: Anxiety/Agitation Stop: 09/28/21 21:52 Olanzapine (Olanzapine 2.5 Mg Tab) 2.5 mg PO BID [facility] Stop: 09/30/21 08:59 Last Admin: 08/31/21 09:24 Dose: 2.5 mg Documented by: Phenytoin Sodium (Phenytoin Sodium Er 100 Mg Cap) 200 mg PO HS [facility] Stop: 09/27/21 22:29 Last Admin: 08/30/21 21:17 Dose: 200 mg Documented by: Polyethylene Glycol (Polyethylene (Miralax) 17 Gm Pack) 17 gm PO DAILY PRN PRN Reason: Constipation Stop: 09/27/21 22:09 Venlafaxine HCl (Venlafaxine Hcl Xr 75 Mg Capxr) 75 mg PO QAM [facility] Stop: 09/28/21 08:59 Last Admin: 08/31/21 08:49 Dose: 75 mg Documented by: Venlafaxine HCl (Venlafaxine Hcl Xr 150 Mg Capxr) 150 mg PO QAM [facility] Stop: 09/28/21 08:59 Last Admin: 08/31/21 08:48 Dose: 150 mg Documented by:
--- NOTE | 2021-08-31 13:04 | Hospitalist Progress Note ---
Date of Service August 31, 2021 Assessment & Plan (1) Encephalopathy: (2) Seizure: Plan: Possible related to Breakthrough Seizure vs Ativan withdrawal Encephalopathy improving usual seizure medications resumed including Ativan scheduled CT head showed no acute intracranial abnormality LP done showed no organism and no growth on culture Neurology on board earlier today, patient displaying paranoid behaviors Psych on board- Zyprexa ordered improving need to observe 1-2 days for Ativan Withdrawal may need inpatient Psych care Elevated WBC Possible reactive due to seizure WBC on admission 21K then improved to to 12.6 K - now normalized abx discontinued Continue monitor CBC Marijuana abuse UDS positive for Marijuana Counseling on Marijuana abuse Hepatic vein thrombosis Status post Coumadin treatment Stable DVT prophylaxis per Lovenox subcu Full code Disposition pending PT/OT eval may need inpatient Psych evaluation and treatment plan of care discussed with patient in detail and at length all questions answered she is understanding, agreeable, comfortable with the plan of care Admission and Anticipated Discharge Date Admission Date: August 28, 2021 Subjective ff up for encephalopathy, secondary to ativan withdrawal, etc seen with NATALIE Liu at bedside throughout whole encounter alert, oriented x 3, answers questions appropriately earlier, called 911, noted have paranoia states she feels better after receiving Ativan and Zyprexa " i feel like more of myself" when asked how is her mood- patient replied "i don't know yet" patient smiling, in good spirits on exam no chest pain, dyspnea, palpitations, dizziness no headache, fever/chills, back pain would like to have her diet advanced no other symptoms Review of Systems Review of Systems: all noted and negative except for above Physical Exam Physical Exam: General- oriented x 3, not in distress, speaks in sentences with no effort or accessory muscle use Eyes- anicteric Neck- no JVD Lungs- clear breath sounds bilaterally, no rales/wheezes Heart- normal rate, regular rhythm; no murmurs Abdomen- normal bowel sounds, nondistended, soft, nontender Extremities- no pretibial edema, no calf tenderness Neuro- alert, oriented x 3; no gross focal neurologic deficits Skin- warm & dry Psych- smiling, affect appropriate Results & Data Results & Data ([facility]) Vital Signs (Past 12 Hours) Vital Signs Temp Pulse Pulse Resp BP Pulse Ox 08/31/21 11:01 36.6 C 103 H 16 162/82 H 100 08/31/21 07:44 98 H 08/31/21 07:36 36.6 C 101 H 18 117/75 99 all noted and reviewed including below
[2021-08-31] MEDS: PHENYTOIN SODIUM ER 100 MG CAP PO SCH (21:58)
[2021-09-01] MEDS: carBAMazepine 100 MG CHEW TAB PO SCH ×2 (08:20→22:12)
[2021-09-01] MEDS: LORazepam 1 MG TAB PO SCH ×4 (08:20→22:12)
[2021-09-01] MEDS: VENLAFAXINE HCL XR 75 MG CAPXR PO SCH (08:21)
[2021-09-01] MEDS: OLANZAPINE 2.5 MG TAB PO SCH ×2 (08:21→22:12)
[2021-09-01] MEDS: VENLAFAXINE HCL XR 150 MG CAPXR PO SCH (08:21)
[2021-09-01] MEDS: ENOXAPARIN INJ 40 MG/0.4 ML SYR SQ SCH (08:22)
[2021-09-01 11:00] LABS: BUN Creatinine Ratio 7.6 (10-20); Calcium 8.8 mg/dl (8.5-10.1); Creatinine Clr Calc Pharmacy 106.4 ml/min; Est GFR (Non-African American) 98.4 ml/min; Potassium 3.3 mmol/L (3.5-5.1)
--- NOTE | 2021-09-01 13:27 | Communication Note ---
Date of Service: September 01, 2021 Patient sleeping on rounds. Interim progress reviewed. Case discussed briefly with Dr. Melissa. Delirium continues to improve. Hallucinations resolved thr ough day yesterday and talkative/appropriate prior to bed. Doubt need for inpatient psychiatric hospitalization as clearing quickly and course consistent with withdrawal delirium. It's very individualized how long patients stay on low dose antipsychotic as delirium resolves, may need tapered on outpatient basis, exploring options for provider to oversee. Dr. Melissa agreed to update Dr. Carter.
--- NOTE | 2021-09-01 15:57 | Hospitalist Progress Note ---
Date of Service September 01, 2021 Assessment & Plan (1) Encephalopathy: (2) Seizure: Plan: Encephalopathy possible related to Breakthrough Seizure vs Ativan withdrawal Encephalopathy improving usual seizure medications resumed including Ativan [address] head showed no acute intracranial abnormality LP done showed no organism and no growth on culture Neurology on board Psych on board- Zyprexa 2.5 mg p.o. twice daily Improving overall As per psychiatrist Dr. Kaiser: No indication for inpatient psych admission Requesting outpatient neurologist to taper patient Zyprexa We will discuss with Dr. Carter Continue to observe in the hospital closely Elevated WBC Possible reactive due to seizure WBC on admission 21K then improved to to 12.6 K - now normalized abx discontinued No signs of infection Repeat CBC tomorrow Marijuana abuse UDS positive for Marijuana Counseling on Marijuana abuse Hepatic vein thrombosis Status post Coumadin treatment Stable DVT prophylaxis per Lovenox subcu Full code Disposition pending OT: Recommending inpatient rehab PT: Pending plan of care discussed with patient in detail and at length all questions answered she is understanding, agreeable, comfortable with the plan of care Admission and Anticipated Discharge Date Admission Date: August 28, 2021 Subjective Follow-up for delirium, Ativan withdrawal, etc. Seen with NATALIE Pennington at the bedside throughout whole encounter Sleeping, but easily awakened Oriented x3, answers questions appropriately States she feels tired today, but otherwise feels fine overall [place] somewhat dizzy when she tried to sit up at the bedside chair with Occupational Therapy Denies feeling anxious or depressed No chest pain, palpitations, dizziness Appetite is good No other symptoms Review of Systems Review of Systems: all noted and negative except for above Physical Exam Physical Exam: General- oriented x 3, not in distress, speaks in sentences wit h no effort or accessory muscle use Eyes- anicteric Neck- no JVD Lungs- clear BS, no rales/wheezes Heart- normal rate, regular rhythm; no murmurs Abdomen- normal bowel sounds, nondistended, soft, nontender Extremities- no pretibial edema, no calf tenderness Neuro- alert, oriented x 3; no new gross focal neurologic deficits Skin- warm & dry Psych-affect appropriate, denies depression or anxiety Calm, cooperative, pleasant Results & Data Results & Data ([facility]) Vital Signs (Past 12 Hours) Vital Signs Temp Pulse Pulse Resp BP Pulse Ox 09/01/21 15:52 36.7 C 113 H 20 119/68 98 09/01/21 15:35 125 H 09/01/21 11:47 36.9 C 110 H 18 123/88 98 09/01/21 07:34 36.9 C 106 H 18 115/76 95 09/01/21 05:26 105 H all noted and reviewed including below
[2021-09-01] MEDS: ACETAMINOPHEN 325 MG TAB PO PRN (16:16)
[2021-09-01] MEDS: POTASSIUM CHLORIDE CRTAB 20 MEQ TABCR PO SCH ×2 (16:17→22:12)
[2021-09-01] MEDS: PHENYTOIN SODIUM ER 100 MG CAP PO SCH (22:12)
[2021-09-02 07:00] LABS: Basophils # (auto) 0.02 K/uL (0-0.2); Basophils % (auto) 0.3 %; Eosinophils # (auto) 0.02 K/uL (0-0.5); Eosinophils % (auto) 0.3 %; Hematocrit (blood only) 44.7 % (37-47); Hemoglobin 15.4 g/dL (12.0-16.0); Immature Granulocytes # (auto) 0.02 K/uL (0.00-0.02); Immature Granulocytes % (auto) 0.3 %; Lymphocytes # (auto) 2.31 K/uL (1.2-3.4); Mean Corpuscular Hemoglobin 31.4 pg (25-34); Mean Corpuscular Hgb Conc 34.5 g/dL (32-36); Mean Platelet Volume 8.1 fL (7.4-10.4); Monocytes # (auto) 0.81 K/uL (0.11-0.59); Monocytes % (auto) 12.6 %; Neutrophils # (auto) 3.23 K/uL (1.4-6.5); Neutrophils % (auto) 50.5 %; Platelet Count 397 K/uL (130-400); RDW Coefficient of Variation 13.7 % (11.5-14.5); RDW Standard Deviation 45.6 fL (36.4-46.3); Red Blood Count 4.91 M/uL (4.2-5.4); White Blood Count 6.41 K/uL (4.8-10.8)
[2021-09-02] MEDS: IBUPROFEN 200 MG TAB PO PRN (07:51)
[2021-09-02 07:55] LABS: BUN Creatinine Ratio 16.7 (10-20); Calcium 8.9 mg/dl (8.5-10.1); Creatinine Clr Calc Pharmacy 141.7 ml/min; Est GFR (African American) 138.8 ml/min; Est GFR (Non-African American) 119.8 ml/min
[2021-09-02] MEDS: carBAMazepine 100 MG CHEW TAB PO SCH ×2 (08:25→21:27)
[2021-09-02] MEDS: OLANZAPINE 2.5 MG TAB PO SCH ×2 (08:25→21:28)
[2021-09-02] MEDS: LORazepam 1 MG TAB PO SCH ×4 (08:25→21:29)
[2021-09-02] MEDS: ENOXAPARIN INJ 40 MG/0.4 ML SYR SQ SCH (08:26)
[2021-09-02] MEDS: VENLAFAXINE HCL XR 75 MG CAPXR PO SCH (08:26)
[2021-09-02] MEDS: POTASSIUM CHLORIDE CRTAB 20 MEQ TABCR PO SCH (08:26)
[2021-09-02] MEDS: VENLAFAXINE HCL XR 150 MG CAPXR PO SCH (08:26)
[2021-09-02] MEDS: POLYETHYLENE (MIRALAX) 17 GM PACK PO PRN (11:20)
--- NOTE | 2021-09-02 13:02 | Communication Note ---
Date of Service: September 02, 2021 case reviewed briefly with Dr. Melissa and liaison service. Last pm liaison contacted as tearful, reported feeling like in a time machine so there was some concern psychosis should be returning. Per liaison: "She stated that she is getting some of her memory back from her admission to the hospital, and she was having difficulty differentiating between reality, and hallucinations. She denies any current hallucinations..." The patient continues to improve and confirming [facility] can manage Effexor and Zyprexa (likely taper) following discharge. On rounds patient was clear and interacting appropriately with PT. No additional recs at this time. From a psychiatric standpoint she is stable for discharge to outpatient level of care.
--- NOTE | 2021-09-02 17:40 | Hospitalist Progress Note ---
Date of Service September 02, 2021 Assessment & Plan (1) Encephalopathy: (2) Seizure: Plan: Encephalopathy possible related to Breakthrough Seizure vs Ativan withdrawal Encephalopathy continues to improve No episode of confusion since this morning usual seizure medications resumed including Ativan [address] head showed no acute intracranial abnormality LP done showed no organism and no growth on culture Neurology on board Psych on board- Zyprexa 2.5 mg p.o. twice daily Improving overall As per psychiatrist Dr. Kaiser: No indication for inpatient psych admission Requesting outpatient neurologist to taper patient Zyprexa We will discuss with Dr. Carter Continue to observe in the hospital closely Generalized weakness Likely secondary to deconditioning PT OT evaluation Will need inpatient rehab Elevated WBC Possible reactive due to seizure WBC on admission 21K then improved to to 12.6 K - now normalized abx discontinued No signs of infection Leukocytosis resolved Marijuana abuse UDS positive for Marijuana Counseling on Marijuana abuse Hepatic vein thrombosis Status post Coumadin treatment Stable DVT prophylaxis per Lovenox subcu Full code Disposition pending OT: Recommending inpatient rehab PT: Pending plan of care discussed with patient in detail and at length all questions answered she is understanding, agreeable, comfortable with the plan of care Admission and Anticipated Discharge Date Admission Date: August 28, 2021 Subjective Follow-up for Ativan withdrawal, delirium, etc. Seen resting in bed with RN Kiara at the bedside throughout all encounter Sleeping but easily awakened Oriented x3, answers all questions appropriately States she feels fine overall today Feeling better States mood is okay No chest pain, palpitations, dizziness, shortness of breath Able to participate with PT/OT today Able to stand better, but still has weakness-General No other new symptoms Review of Systems Review of Systems: all noted and negative except for above Physical Exam Physical Exam: General- oriented x 3, not in distress, speaks in sentences with no effort or accessory muscle use Eyes- anicteric Neck- no JVD Lungs- clear BS bilaterally, no rales/wheezes Heart- normal rate, regular rhythm; no murmurs Abdomen- normal bowel sounds, nondistended, soft, nontender Extremities- no pretibial edema, no calf tenderness Neuro- alert, oriented x 3; no gross focal neurologic deficits Skin- warm & dry Results & Data Results & Data ([facility]) Vital Signs (Past 12 Hours) Vital Signs Temp Pulse Pulse Resp BP Pulse Ox 09/02/21 16:05 36.9 C 97 H 18 116/82 100 09/02/21 14:20 116 H 09/02/21 11:45 36.9 C 104 H 14 113/80 98 09/02/21 07:31 36.4 C L 99 H 18 119/83 96 09/02/21 07:15 94 H all noted and reviewed including below
[2021-09-02] MEDS: PHENYTOIN SODIUM ER 100 MG CAP PO SCH (21:29)
[2021-09-03] MEDS: carBAMazepine 100 MG CHEW TAB PO SCH ×2 (08:00→20:22)
[2021-09-03] MEDS: ENOXAPARIN INJ 40 MG/0.4 ML SYR SQ SCH (08:01)
[2021-09-03] MEDS: VENLAFAXINE HCL XR 75 MG CAPXR PO SCH (08:01)
[2021-09-03] MEDS: OLANZAPINE 2.5 MG TAB PO SCH ×2 (08:01→20:22)
[2021-09-03] MEDS: VENLAFAXINE HCL XR 150 MG CAPXR PO SCH (08:01)
[2021-09-03] MEDS: POLYETHYLENE (MIRALAX) 17 GM PACK PO PRN (08:02)
[2021-09-03] MEDS: LORazepam 1 MG TAB PO SCH ×4 (08:03→20:17)
[2021-09-03] MEDS: IBUPROFEN 200 MG TAB PO PRN ×2 (09:27→21:36)
--- NOTE | 2021-09-03 17:07 | Hospitalist Progress Note ---
Date of Service September 03, 2021 Assessment & Plan (1) Encephalopathy: (2) Seizure: Plan: Encephalopathy possible related to Breakthrough Seizure vs Ativan withdrawal Encephalopathy continues to improve No episode of confusion since this morning usual seizure medications resumed including Ativan [address] head showed no acute intracranial abnormality LP done showed no organism and no growth on culture Neurology on board Psych on board- Zyprexa 2.5 mg p.o. twice daily mental status improved overall As per psychiatrist Dr. Kaiser: No indication for inpatient psych admission ff up with outpatient Psychiatrist, will need tapering of Zyprexa Continue to observe in the hospital closely Generalized weakness Likely secondary to deconditioning improving PT/OT evaluation Will need inpatient rehab Elevated WBC Possible reactive due to seizure WBC on admission 21K then improved to to 12.6 K - now normalized abx discontinued No signs of infection Leukocytosis resolved Marijuana abuse UDS positive for Marijuana Counseling on Marijuana abuse Hepatic vein thrombosis Status post Coumadin treatment Stable DVT prophylaxis per Lovenox subcu Full code Disposition pending awaiting acceptance to Rehab plan of care discussed with patient in detail and at length all questions answered she is understanding, agreeable, comfortable with the plan of care Admission and Anticipated Discharge Date Admission Date: August 28, 2021 Subjective ff up for ativan withdrawal, etc seen resting in bed, comfortable seen with RN Kiara at bedside throughout whole encounter states she feels improved overall less weak, able to sit on the chair longer no chest pain, dyspnea, palpitations, dizziness states she feels "sad", feels guilty for acting the way she did towards others when she was confused reassured, patient was calmer, smiling no other symptoms Review of Systems Review of Systems: all noted and negative except for above Physical Exam Physical Exam: General- oriented x 3, not in distress, speaks in sentences with no effort or accessory muscle use Eyes- anicteric Neck- no JVD Lungs- clear BS bilaterally, no rales/wheezes Heart- normal rate, regular rhythm; no murmurs Abdomen- normal bowel sounds, nondistended, soft, nontender Extremities- no pretibial edema, no calf tenderness Neuro- alert, oriented x 3; no gross focal neurologic deficits Skin- warm & dry psych- appropriate affect Results & Data Results & Data ([facility]) Vital Signs (Past 12 Hours) Vital Signs Temp Pulse Pulse Resp BP Pulse Ox 09/03/21 15:30 94 H 03/19/22 14:53 36.7 C 96 H 18 112/77 96 09/03/21 10:00 36.8 C 101 H 18 123/89 99 09/03/21 07:00 36.7 C 93 H 93 H 18 116/80 96 all noted and reviewed including below
[2021-09-03] MEDS: PHENYTOIN SODIUM ER 100 MG CAP PO SCH (20:18)
[2021-09-04] MEDS: IBUPROFEN 200 MG TAB PO PRN ×2 (08:13→18:11)
[2021-09-04] MEDS: LORazepam 1 MG TAB PO SCH ×4 (08:13→20:21)
[2021-09-04] MEDS: OLANZAPINE 2.5 MG TAB PO SCH ×2 (08:13→20:21)
[2021-09-04] MEDS: carBAMazepine 100 MG CHEW TAB PO SCH ×2 (08:13→20:20)
[2021-09-04] MEDS: VENLAFAXINE HCL XR 75 MG CAPXR PO SCH (08:14)
[2021-09-04] MEDS: ENOXAPARIN INJ 40 MG/0.4 ML SYR SQ SCH (08:14)
[2021-09-04] MEDS: VENLAFAXINE HCL XR 150 MG CAPXR PO SCH (08:14)
[2021-09-04] MEDS: ACETAMINOPHEN 325 MG TAB PO PRN (09:47)
[2021-09-04] MEDS: OLANZapine 10 MG/2.1 ML SDV IM PRN (09:48)
[2021-09-04] MEDS ORDERED: BENZOCAINE 20% (ORAJEL) 11.9 GM TUBE MT PRN (16:37)
--- NOTE | 2021-09-04 18:50 | Hospitalist Progress Note ---
Date of Service September 04, 2021 Assessment & Plan (1) Encephalopathy: (2) Seizure: Plan: Encephalopathy possible related to Breakthrough Seizure vs Ativan withdrawal Encephalopathy continues to improve No episode of confusion since this morning usual seizure medications resumed including Ativan [address] head showed no acute intracranial abnormality LP done showed no organism and no growth on culture Neurology on board Psych on board- Zyprexa 2.5 mg p.o. twice daily mental status improved overall As per psychiatrist Dr. Kaiser: No indication for inpatient psych admission ff up with outpatient Psychiatrist, will need tapering of Zyprexa Continue to observe in the hospital closely Generalized weakness Likely secondary to deconditioning improving PT/OT evaluation Will need inpatient rehab R Foot Pain will order foot xray Elevated WBC Possible reactive due to seizure WBC on admission 21K then improved to to 12.6 K - now normalized abx discontinued No signs of infection Leukocytosis resolved Marijuana abuse UDS positive for Marijuana Counseling on Marijuana abuse Hepatic vein thrombosis Status post Coumadin treatment Stable DVT prophylaxis per Lovenox subcu Full code Disposition pending awaiting acceptance to Rehab plan of care discussed with patient and her in detail and at length all questions answered they are understanding, agreeable, comfortable with the plan of care Admission and Anticipated Discharge Date Admission Date: August 28, 2021 Subjective Follow-up for breakthrough seizure, Ativan withdrawal, etc. Seen resting in bed, sitting up with visiting NATALIE Craig at bedside throughout whole encounter States she feels better today Reports right ankle pain Also has pain over tongue bite No other symptom Review of Systems Review of Systems: all noted and negative except for above Physical Exam Physical Exam: General- oriented x 3, not in distress, speaks in sentences with no effort or accessory muscle use Eyes- anicteric Neck- no JVD Lungs- clear BS bilaterally, no rales/wheezes Heart- normal rate, regular rhythm; no murmurs Abdomen- normal bowel sounds, nondistended, soft, nontender Extremities- no pretibial edema, no calf tenderness Right foot: Positive leg bruise over the dorsal aspect, no erythema/warmth/tenderness Full range of motion Neuro- alert, oriented x 3; no gross focal neurologic deficits Skin- warm & dry Results & Data Results [facility] ([facility]) Vital Signs (Past 12 Hours) Vital Signs Temp Pulse Pulse Resp BP Pulse Ox 09/04/21 16:43 93 H 09/04/21 15:37 36.5 C 93 H 18 117/80 100 09/04/21 10:47 36.6 C 98 H 18 122/85 98 09/04/21 07:56 75 all noted and reviewed including below
[2021-09-04] MEDS: PHENYTOIN SODIUM ER 100 MG CAP PO SCH (20:21)
[2021-09-05] MEDS: OLANZAPINE 2.5 MG TAB PO SCH ×2 (07:46→21:42)
[2021-09-05] MEDS: carBAMazepine 100 MG CHEW TAB PO SCH ×2 (07:46→21:40)
[2021-09-05] MEDS: VENLAFAXINE HCL XR 75 MG CAPXR PO SCH (07:47)
[2021-09-05] MEDS: VENLAFAXINE HCL XR 150 MG CAPXR PO SCH (07:47)
[2021-09-05] MEDS: ENOXAPARIN INJ 40 MG/0.4 ML SYR SQ SCH (07:48)
[2021-09-05] MEDS: LORazepam 1 MG TAB PO SCH ×4 (07:55→21:42)
[2021-09-05] MEDS: POLYETHYLENE (MIRALAX) 17 GM PACK PO PRN (07:55)
[2021-09-05] MEDS: OLANZapine 10 MG/2.1 ML SDV IM PRN ×2 (12:58→22:59)
--- NOTE | 2021-09-05 14:01 | Hospitalist Progress Note ---
Date of Service September 05, 2021 Assessment & Plan (1) Encephalopathy: (2) Seizure: Plan: Encephalopathy possible related to Breakthrough Seizure vs Ativan withdrawal Encephalopathy continues to improve No episode of confusion x3 days usual seizure medications resumed including Ativan [address] head showed no acute intracranial abnormality LP done showed no organism and no growth on culture Neurology on board Psych on board- Zyprexa 2.5 mg p.o. twice daily mental status improved overall As per psychiatrist Dr. 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 Seen with NATALIE Newberry at bedside throughout whole encounter Resting in bed, sitting up, in good spirits Earlier on was having increased anxiety, given Zyprexa IM Feels better overall No chest pain, palpitations, shortness of breath, dizziness Right foot pain improving No other symptom Review of Systems Review of Systems: all noted and negative except for above Physical Exam Physical Exam: General- oriented x 3, not in distress, speaks in sentences with no effort or accessory muscle use Eyes- anicteric Neck- no JVD Lungs- clear BS BL Heart- normal rate, regular rhythm; no murmurs Abdomen- normal bowel sounds, nondistended, soft, nontender Extremities- no pretibial edema, no calf tenderness Neuro- alert, oriented x 3; no gross focal neurologic deficits Skin- warm & dry, small very faint bruise over the dorsal aspect of the right foot Full range of motion, no erythema/warmth/tenderness Results & Data Results & Data ([facility]) Vital Signs (Past 12 Hours) Vital Signs Temp Pulse Resp BP BP Pulse Ox 03/21/22 11:00 36.7 C 88 18 129/80 97 09/05/21 08:00 36.7 C 93 H 18 121/87 99 09/05/21 04:00 36.4 C L 70 18 114/76 99 all noted and reviewed including below
--- NOTE | 2021-09-05 14:04 | XRay Report ---
RIGHT FOOT 2 VIEWS HISTORY: Right foot pain, r/o fracture COMPARISON: None. FINDINGS: There is no fracture or dislocation. Soft tissues are unremarkable. No radiopaque foreign b odies. IMPRESSION: No fractures. ACT 112: Negative or not required by law. Electronically signed by: Eladio Valenzuela M.D. 09/05/2021 2:02 PM
[2021-09-05] MEDS: IBUPROFEN 200 MG TAB PO PRN (14:32)
[2021-09-05] MEDS: PHENYTOIN SODIUM ER 100 MG CAP PO SCH (21:43)
[2021-09-06] MEDS: VENLAFAXINE HCL XR 150 MG CAPXR PO SCH (08:45)
[2021-09-06] MEDS: VENLAFAXINE HCL XR 75 MG CAPXR PO SCH (08:45)
[2021-09-06] MEDS: OLANZAPINE 2.5 MG TAB PO SCH ×2 (08:45→21:36)
[2021-09-06] MEDS: carBAMazepine 100 MG CHEW TAB PO SCH ×2 (08:46→21:34)
[2021-09-06] MEDS: LORazepam 1 MG TAB PO SCH ×4 (08:46→21:34)
[2021-09-06] MEDS: ENOXAPARIN INJ 40 MG/0.4 ML SYR SQ SCH (08:47)
[2021-09-06] MEDS: IBUPROFEN 200 MG TAB PO PRN ×3 (08:47→21:39)
[2021-09-06] MEDS: OLANZapine 10 MG/2.1 ML SDV IM PRN (14:08)
--- NOTE | 2021-09-06 18:12 | Hospitalist Progress Note ---
Date of Service September 06, 2021 Assessment & Plan (1) Encephalopathy: (2) Seizure: Plan: Encephalopathy possible related to Breakthrough Seizure vs Ativan withdrawal Encephalopathy continues to improve No episode of confusion x3 days usual seizure medications resumed including Ativan [address] head showed no acute intracranial abnormality LP done showed no organism and no growth on culture Neurology on board Psych on board- Zyprexa 2.5 mg p.o. twice daily mental status improved overall As per psychiatrist Dr. Kaiser: No indication for inpatient psych admission ff up with outpatient Psychiatrist, will need tapering of Zyprexa Transition to custodial facility when accepted Generalized weakness Likely secondary to deconditioning improving Transition to custodial facility when accepted R Foot Pain Improving Foot x-ray: No fracture Elevated WBC Possible reactive due to seizure WBC on admission 21K then improved to to 12.6 K - now normalized abx discontinued No signs of infection Leukocytosis resolved Marijuana abuse UDS positive for Marijuana Counseling on Marijuana abuse Hepatic vein thrombosis Status post Coumadin treatment Stable DVT prophylaxis per Lovenox subcu Full code Disposition pending Denied by insurance for acute rehab, case management working on getting patient to custodial facility plan of care discussed with patient in detail and at length all questions answered She is understanding, agreeable, comfortable with the plan of care Admission and Anticipated Discharge Date Admission Date: August 28, 2021 Subjective Follow-up for breakthrough seizure, Ativan withdrawal, etc. Seen with NATALIE Miguel at bedside throughout whole encounter Sitting up, comfortable, not in distress States she feels fine overall No chest pain, dizziness, shortness of breath, fevers Mood is okay Appetite is good No other symptoms Review of Systems Review of Systems: all noted and negative except for above Physical Exam Physical Exam: General- oriented x 3, not in distress, speaks in sentences with no effort or accessory muscle use Eyes- anicteric Neck- no JVD Lungs- clear breath sounds bilaterally Heart- normal rate, regular rhythm; no murmurs Abdomen- normal bowel sounds, nondistended, soft, nontender Extremities- no pretibial edema, no calf tenderness Right foot: No erythema/warmth/tenderness Neuro- alert, oriented x 3; no gross focal neurologic deficits Skin- warm & dry Psych-tearful mood, appropriate affect, pleasant, calm and cooperative next Results & Data Results & Data ([facility]) Vital Signs (Past 12 Hours) Vital Signs Temp Pulse Pulse Resp BP Pulse Ox 09/06/21 15:09 36.8 C 83 16 120/78 97 09/06/21 11:56 36.5 C 80 18 104/68 99 09/06/21 07:39 73 09/06/21 06:56 36.6 C 86 20 101/59 L 98 all noted and reviewed including below
[2021-09-06] MEDS: PHENYTOIN SODIUM ER 100 MG CAP PO SCH (21:36)
[2021-09-07] MEDS: POLYETHYLENE (MIRALAX) 17 GM PACK PO PRN (08:16)
[2021-09-07] MEDS: LORazepam 1 MG TAB PO SCH ×2 (08:16→13:14)
[2021-09-07] MEDS: VENLAFAXINE HCL XR 150 MG CAPXR PO SCH (08:17)
[2021-09-07] MEDS: OLANZAPINE 2.5 MG TAB PO SCH (08:17)
[2021-09-07] MEDS: VENLAFAXINE HCL XR 75 MG CAPXR PO SCH (08:17)
[2021-09-07] MEDS: ENOXAPARIN INJ 40 MG/0.4 ML SYR SQ SCH (08:18)
[2021-09-07] MEDS: carBAMazepine 100 MG CHEW TAB PO SCH (08:18)
--- NOTE | 2021-09-07 13:21 | Hospitalist Progress Note ---
Date of Service September 07, 2021 Assessment & Plan (1) Encephalopathy: (2) Seizure: Plan: Encephalopathy possible related to Breakthrough Seizure vs Ativan withdrawal Encephalopathy has resolved No episode of confusion at least 4 days Neurologist consulted usual seizure medications resumed including Ativan [address] head showed no acute intracranial abnormality LP done showed no organism and no growth on culture Psych on board- Zyprexa 2.5 mg p.o. twice daily mental status improved overall As per psychiatrist Dr. Kaiser: No indication for inpatient psych admission ff up with outpatient Psychiatrist, will need tapering of Zyprexa Generalized weakness Likely secondary to deconditioning improved patient prefers to go home and have outpatient ff up R Foot Pain Improved Foot x-ray: No fracture Elevated WBC Possible reactive due to seizure WBC on admission 21K then improved to to 12.6 K - now normalized abx discontinued No signs of infection Leukocytosis resolved Marijuana abuse UDS positive for Marijuana Counseling on Marijuana abuse Hepatic vein thrombosis Status post Coumadin treatment Stable DVT prophylaxis per Lovenox subcu Full code Disposition d/c home today ff up with PCP in 1 week ff up with Psychiatrist in 1 week plan of care discussed with patient in detail and at length all questions answered She is understanding, agreeable, comfortable with the plan of care Admission and Anticipated Discharge Date Admission Date: August 28, 2021 Subjective ff up for breakthrough seizure, etc seen resting in bed, sitting up comfortable states she feels better overall strength also better back to her baseline as per patient no confusion, focal neuro deficits no chest pain, dyspnea, palpitations, dizziness no other symptoms states she is ready and would like to be discharged today prefers to go home and have PT/OT as outpatient Review of Systems Review of Systems: all noted and negative except for above Physical Exam Physical Exam: General- oriented x 3, not in distress, speaks in sentences with no effort or accessory muscle use Eyes- anicteric Neck- no JVD Lungs- clear breath sounds bilaterally, no rales/wheezes Heart- normal rate, regular rhythm; no murmurs Abdomen- normal bowel sounds, nondistended, soft, nontender Extremities- no pretibial edema, no calf tenderness Neuro- alert, oriented x 3; no new gross focal neurologic deficits Skin- warm & dry Psych- in good spirits, appropriate affect Results & Data Results & Data ([facility]) Vital Signs (Past 12 Hours) Vital Signs Temp Pulse Resp BP BP Pulse Ox 09/07/21 11:24 36.5 C 83 18 103/68 98 09/07/21 07:19 36.4 C L 75 18 107/72 97 09/07/21 04:07 36.3 C L 76 18 96/61 L 98 all noted and reviewed including below
--- NOTE | 2021-09-07 13:32 | Discharge Summary ---
Date of Service September 07, 2021 Admission HPI Per Admitting Provider History obtained from ER provider, patient, family, and records. Unable to obtain history from patient secondary to obtunded state. Medical history significant for epilepsy, movement disorder, hepatic vein thrombosis status post Coumadin Rx, genital herpes, ongoing marijuana use, past tobacco abuse. Last confinement 2018 for generalized abdominal pain secondary to Pamela esophagitis. Pseudoseizure during confinement. Patient not well the last 2 days as per . Complaining of achy abdominal pain with diarrhea with multiple emesis episodes of emesis . Patient unable to take her seizure medications as per partner. Patient consuming marijuana at home. Witnessed GTC seizures at home different from patient's usual small episodes as per . Patient brought to the ER for evaluation. Fosphenytoin administered at the ER. Multiple sedatives given at the ER to keep patient calm. IV Vancomycin, Ceftriaxone, and Decadron given for possible meningitis. Medical History as above Surgical History : Dental surgery, BTL, D&C Family History : Colon cancer, heart disease, ulcerative colitis Personal/Social history : Past tobacco abuse, no EtOH intake, disabled Admission Exam Per Admitting Provider GENERAL: Obtunded, uncomfortable, no respiratory distress SKIN: Normal color, warm HEENT: [place] palpebral conjunctivae, no ptosis, dry buccal mucosa NECK : Supple, no tenderness CHEST : CTA, no tenderness HEART : Tachycardic, no obvious murmurs ABDOMEN: Some distention, nontender EXTREMITIES : No LE swelling/tenderness, no other conspicuous deformities noted NEUROLOGIC : Obtunded, no facial asymmetry, gait and stance not assessed Principal Diagnosis BREAKTHROUGH SEIZURE ATIVAN WITHDRAWAL FROM POOR MEDICATION ABSORPTION SECONDARY TO NAUSEA/VOMITING Discharge Exam General- oriented x 3, not in distress, speaks in sentences with no effort or accessory muscle use Eyes- anicteric Neck- no JVD Lungs- clear breath sounds bilaterally, no rales/wheezes Heart- normal rate, regular rhythm; no murmurs Abdomen- normal bowel sounds, nondistended, soft, nontender Extremities- no pretibial edema, no calf tenderness Neuro- alert, oriented x 3; no new gross focal neurologic deficits Skin- warm & dry Psych- in good spirits, appropriate affect Discharge Data Allergies Allergy/AdvReac Type Severity Reaction Status Date / Time prednisone AdvReac Intermediate DILANTIN Verified 08/28/21 16:44 TOXICITY sulfamethoxazole AdvReac Intermediate BURNING,ALIX Verified 08/28/21 16:44 RRHEA trimethoprim AdvReac Intermediate BURNING,ALIX Verified 08/28/21 16:44 RRHEA Consultations 08/28/21 19:04 ED Decision to Admit Stat 08/28/21 22:10 Consult Neurology Routine 08/29/21 14:08 Consult Psychiatry Routine Ordered Studies 08/28/21 16:01 CT abd pelvis wo con Stat ABDOMEN AND PELVIS CT WITHOUT CONTRAST HISTORY: Acute generalized abdominal pain AMS TECHNIQUE: Multiaxial CT images of the abdomen and pelvis were performed without contrast. A dose lowering technique was utilized adhering to the principles of ALARA. COMPARISON STUDY: 09/24/2018 FINDINGS: Respiratory motion artifact limits the study. The study is also limited secondary to upper extremity positioning and lack of contrast. Clear lung bases. No pneumatosis or pneumoperitoneum. The unenhanced spleen, pancreas, adrenal glands, gallbladder and liver appear unremarkable. The previous noted 1.5 cm lesion of the inferior right hepatic lobe is better seen on the comparison study. Unremarkable kidneys. No hydronephrosis. 4 mm calcification along the posterior margin of the urinary bladder on image 409 is unchanged suggestive of a phlebolith. The urinary bladder, uterus and adnexa are within normal limits. Unremarkable abdominal aorta. No adenopathy. No bowel obstruction or bowel wall thickening. No ascites or mesenteric inflammation. Normal appendix. Unremarkable soft tissues. Moderate L4-L5 intervertebral disc space narrowing with small posterior disc osteophyte complex. No acute fracture. IMPRESSION: 1. Limited exam as above. 2. No acute intra-abdominal or intrapelvic abnormality. 3. Normal appendix. ACT 112: Negative or not required by law. CT cervical spine wo con Stat IMPRESSION: 1. No acute fracture or subluxation. 2. Age advanced degenerative changes as above. 08/28/21 16:02 CT head/brain wo con Stat IMPRESSION: Motion degraded exam. No acute intracranial abnormality. Hospital Course (1) Encephalopathy: (2) Seizure: Encephalopathy possible related to Breakthrough Seizure vs Ativan withdrawal FROM POOR MEDICATION ABSORPTION SECONDARY TO NAUSEA/VOMITING Encephalopathy has resolved No episode of confusion at least 4 days Neurologist consulted usual seizure medications resumed including Ativan [address] head showed no acute intracranial abnormality LP done showed no organism and no growth on culture Psych on board- Zyprexa 2.5 mg p.o. twice daily mental status improved overall As per psychiatrist Dr. Kaiser: No indication for inpatient psych admission ff up with outpatient Psychiatrist, will need tapering of Zyprexa Generalized weakness Likely secondary to deconditioning improved patient prefers to go home and have outpatient ff up R Foot Pain Improved Foot x-ray: No fracture Elevated WBC Possible reactive due to seizure WBC on admission 21K then improved to to 12.6 K - now normalized abx discontinued No signs of infection Leukocytosis resolved Marijuana abuse UDS positive for Marijuana Counseling on Marijuana abuse Hepatic vein thrombosis Status post Coumadin treatment Stable Hepatic Lesion The previous noted 1.5 cm lesion of the inferior right hepatic lobe is better seen on the comparison study. Please refer to full report in the Ordered Studies section above Further work up, management, and ff up as outpatient DVT prophylaxis per Lovenox subcu Full code Disposition d/c home today ff up with PCP in 1 week ff up with Psychiatrist in 1 week plan of care discussed with patient in detail and at length all questions answered She is understanding, agreeable, comfortable with the plan of care Total Time Total Time Spent Total Time Spent (In Minutes): > 30 MINUTES Discharge Plan Discharge Items Patient Disposition: Home - Self-Care Reason For Visit: ENCEPHALOPATHY Discharge Diagnosis: ENCEPHALOPATHY FROM BREAKTHROUGH SEIZURE ATIVAN WITHDRAWAL FROM POOR MEDICATION ABSORPTION SECONDARY TO NAUSEA/VOMITING Activity: As commented below Activity Comment: FALL PRECAUTIONS, ALWAYS AMBULATE CAREFULLY, OUTPATIENT PHYSICAL THERAPY Lifting: Wait until after follow-up appointment Exercise/Sports: Wait until after follow-up appointment Driving/Machine Use: NO DRIVING UNTIL RE-EVALUATED AND ALLOWED BY PRIMARY CARE PHYSICIAN Non-emergency contact: Primary Care Provider Call non-emergency contact if: you have any medication questions, your symptoms worsen, your pain is not controlled, your pain is worsening, your pain is unusual for you, your pain is concerning for you and you have a fever Follow-up/Referrals: Arabella Noland DO [Primary Care Provider] - (Date & Time 09/14/2021 11:10 AM Provider Arabella Noland DO Department [facility] ) Melissa Maciel PA-C [Physician Manager Ob] - (Date & Time 10/07/2021 11:20 AM Provider Melissa Maciel PA-C Department Neurology [facility] ) Diet: Regular Addtl Attending Provider Instructions: PLEASE REFER TO YOUR NEW MEDICATION LIST AND FOLLOW INSTRUCTIONS CAREFULLY. YOUR NEW MEDICATIONS INCLUDE: ZYPREXA- to be tapered by your Psychiatrist do not stop abruptly PLEASE CALL 911 if with recurrence of seizure. RETURN TO THE ER IMMEDIATELY IF WITH confusion, drowsiness, weakness. FOLLOW UP WITH PRIMARY CARE PHYSICIAN OUTLINED ABOVE. FOLLOW UP WITH PSYCHIATRIST IN 1 WEEK. FOLLOW UP WITH NEUROLOGIST SCHEDULED. Pending Studies at Discharge: No Stand-Alone Forms: My [facility] [place], Smoking Cessation Medications and DC Order Prescriptions: New olanzapine 2.5 mg Tablet 2.5 mg PO BID Qty: 20 RF: 0 Continued venlafaxine [Effexor XR] 150 mg Capsule,Extended Release 24hr 150 mg PO QAM RF: 0 lorazepam 1 mg Tablet 1 mg PO QID PRN (Reason: Anxiety) RF: 0 phenytoin sodium extended [Dilantin Extended] 100 mg Capsule See Rx Instructions .ROUTE .COMPLEX RF: 0 carbamazepine 100 mg Tablet,Chewable 150 mg PO BID RF: 0 carbamazepine [Carbatrol] 300 mg Capsule, Er Multiphase 12 Hr 600 mg PO BID RF: 0 albuterol sulfate [Ventolin HFA] 90 mcg/actuation Hfa Aerosol Inhaler 2 puff INHALATION Q4H PRN (Reason: Wheezing) RF: 0 ondansetron 4 mg tablet,disintegrating 4 mg PO Q6H PRN (Reason: nausea and vomiting) Qty: 20 RF: 0 sennosides [senna] 8.6 mg tablet 8.6 mg PO BID RF: 0 venlafaxine 75 mg capsule,extended release 24hr 75 mg PO QAM RF: 0 valacyclovir 500 mg tablet 500 mg PO TID PRN (Reason: RECURRENT EPISODE) RF: 0 bisacodyl [Dulcolax (bisacodyl)] 10 mg Suppository 10 mg MS DAILY PRN (Reason: NO BM IN 24 HOURS.) RF: 0 polyethylene glycol 3350 [Miralax] 17 gram/dose Powder 17 g PO DAILY PRN (Reason: Constipation) RF: 0 Discharge Orders: Discharge Order (Routine); Ordered 09/07/21 Ordered By: Girma Melissa Admission Data Admit Date/Time: 08/28/21 20:10 Attending Provider: Kaden Wade Admit Provider: Tutu Comer Primary Care Provider: Arabella Noland Other Providers: Khadra Coreas at [place] ; [place],[facility] ; [facility] ; [facility] ; Tutu Comer ; Melissa Maciel ; Francisco Carter ; Melissa Pinon ; Zay Lucero ; Dian Vail ; Anali Kaiser ; Yady Grey ; Donta Vyas
== END 2021-09-07 14:08 | disposition home or self-care (01) | DRG 101 ==
LOC: ED 15:41 → SUATTDRO 20:10 → 2N 20:10

== ENCOUNTER 2023-08-19 12:27 | Inpatient (IN) ==
--- OUTSIDE RECORDS SUMMARY | 2023-08-19 12:34 | External Medical Summary | Summary of Care ---
Author Name Unknown Organization [facility] Address [address] [facility] [place] [address] Phone [phone] Care Team Providers Care Patient Attendant Name Role Phone Arabella Noland DO Primary Care Provider Reason for Visit * Reason Comments eRx-Medication Refill Encounter Details Date Type Department Care Team (Late st Contact Info) Description 08/06/2023 Refill Neurology [facility] [place] [address] [place] [address] Melissa Arguello PA-C [address] [place] [address] Seizure disorder (HCC) Allergies Active Allergy Reactions Criticality Noted Date Comments Sulfamethoxazole-Trimethopr im Diarrhea High 11/16/2014 Sulfamethoxazole-Trimethopr im Diarrhea 05/24/2018 Nausea, vomiting and diarrhea, abdominal pain Prednisone 09/27/2015 Does not gagandeep when on dilantin documented as of this encounter (statuses as of 08/07/2023) Medications Medication Sig Dispensed Refills Start Date End Date Status Albuterol Sulfate HFA 108 (90 Base) MCG/ACT Inhalation Aerosol SolutionIndicatio ns:Complicated bronchitis Inhale by mouth 2 Puffs every 4 hours as needed for Wheezing. 18 g 5 2 Active Senna 8.6 MG Oral TabletIndications :Constipation, unspecified constipation type TAKE 1 TAB BY MOUTH 2 TIMES A DAY. 60 Tablet 3 2 Active Benzonatate 100 MG Oral CapsuleIndication s:Viral URI with cough Take 1 Capsule by mouth 3 times a day as needed for Cough. 30 Capsule 1 3 Active Additional Information Patient not taking.Reported on 07/23/2023 Ipratropium-Albut roddy 0.5-2.5 (3) MG/3ML Inhalation Solution (Duoneb) Inhale 3 mL via nebulizer every 6 hours as needed for Shortness of Breath. 360 mL 3 3 Active carBAMazepine 100 MG Oral Tablet Chewable (Tegretol)Indicat ions:Generalized convulsive epilepsy without intractable epilepsy (HCC) Chew 1 & 1/2 tablets by mouth twice daily with the 300 mg tabs 90 Tablet 5 3 Active clonazePAM 1 MG Oral Tablet (KlonoPIN)Indicat ions:Idiopathic torsion dystonia Take 1 Tablet by mouth in the morning and 1 Tablet at noon and 1 Tablet in the evening and 1 Tablet before bedtime. 120 Tablet 2 3 Active Phenytoin Sodium Extended 100 MG Oral Capsule (Dilantin)Indicat ions:Anxiety state TAKE 2 CAPSULES BY MOUTH TWICE DAILY (MORNING,EVENING ) 120 Capsule 5 4 Active DULoxetine HCl 60 MG Oral Capsule Delayed Release Particles (Cymbalta) Take 1 Capsule by mouth in the morning. 0 4 Active Ondansetron HCl 4 MG Oral Tablet (Zofran)Indicatio ns:Nausea and vomiting, unspecified vomiting type TAKE 1 TABLET BY MOUTH EVERY 6 HOURS NEEDED FOR NAUSEA 30 Tablet 1 4 Active carBAMazepine ER 300 MG Oral Capsule Extended Release 12 Hour (Carbatrol)Indica tions:Seizure disorder (HCC) TAKE 2 CAPSULES BY MOUTH IN THE MORNING AND 2 AT BEDTIME 360 Capsule 1 4 Active carBAMazepine ER 300 MG Oral Capsule Extended Release 12 Hour (Carbatrol)Indica tions:Seizure disorder (HCC) TAKE 2 CAPSULES BY MOUTH IN THE MORNING AND 2 AT BEDTIME 360 Capsule 1 3 08/07/19 24 Discontinued documented as of this encounter (statuses as of 08/07/2023) Active Problems Problem Noted Date Diagnosed Date 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 Medical marijuana use 03/15/2018 Overview: Since 11/02--vaporiser pen Diarrhea 01/09/2018 Chronic low back pain 10/05/2015 Seizure disorder 10/05/2015 Anxiety state 10/05/2015 Dilantin toxicity 10/05/2015 Myoclonus 07/28/2005 Overview: possible documented as of this encounter (statuses as of 08/07/2023) Resolved Problems Problem Noted Date Diagnosed Date Resolved Date 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 10/28/2018 Pale stool 01/09/2018 08/23/2018 ADVANCE DIRECTIVE INFORMATION 09/02/2012 10/05/2015 Overview: Patient declined Abnormal findings on screening 09/02/2012 10/05/2015 High-risk 09/02/2012 10/05/19 16 Abnormal quad screen 09/02/2012 016 GENERALIZED CONVULSIVE EPILE PSY; WITHOUT MENTION OF INTRACTABLE EPILEPSY 07/28/2005 10/05/19 16 PARTIAL EPILEPSY;W/IMP CONSC IOUS;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 07/28/2005 10/05/2015 Female pelvic inflammatory disease 10/05/2015 Genital herpes 10/05/2015 Overview: ICD-10 update of inactive term documented as of this encounter (statuses as of 08/07/2023) Immunizations Name Administration Dates Next Due COVID-19 mRNA, LNP-s, No Pre serve, 2-Dose Series (oboxo) 11/03/2020,10/13/2020 Seasonal Influenza, PF, 6 M & above, IM , (FluLaval or Fluzone) 07/23/2023,07/30/2019 TDAP (age 10 and older)(Boostrix) 01/31/2013 documented as of this encounter Social History Tobacco Use Types Packs/Day Years Used Date Smoking Tobacco: Former Cigarettes Q uit: 02/16/2010 Passive Smoke Exposure: Past Smokeless Tobacco: Never Comments:Quit in 05/17/15. Alcohol Use Standard Drinks/Week Comments No 0 (1 standard drink = 0.6 oz pur e alcohol) PHQ-2 Answer Date Recorded PHQ-2 Score 0 10/02/2018 Hunger Vital Sign Answer Date Recorded Within the past 12 months, y ou worried that your food would run out before you got the money to buy more. Never true 04/09/20 23 Within the past 12 months, t he food you bought just didn't last and you didn't have money to get more. Never true 04/09/2023 Sex and Gender Information Value Date Recorded Sex Assigned at Female 10/02/2018 2:12 PM EDT Gender Identity Female 10/02/2018 2:12 PM EDT Sexual Orientation Straight 10/02/2018 2: 12 PM EDT Job Start Date Occupation Industry Not on file Not on file Not on file documented as of this encounter Functional Status Functional Status Response Date of Assess ment Are you deaf or do you have serious difficulty h earing? No 02/05/2018 Are you blind or do you have serious difficulty seeing, even when wearing glasses? No 02/05/2018 Do you have serious difficul ty walking or climbing stairs? (5 years old or older) Yes 02/05/2018 Do you have difficulty dress ing or bathing? (5 years old or older) Yes 02/05/2018 Because of a physical, menta l, or emotional condition, do you have difficulty doing errands alone such as visiting a doctor s office or shopping? (15 years old or older) Yes 02/06/20 18 Cognitive Status Response Date of Assessm ent Because of a physical, menta l, or emotional condition, do you have serious difficulty concentrating, remembering, or making decisions? (5 years old or older) No 02/05/2018 documented as of this encounter Miscellaneous Notes * Telephone Encounter - Bre Astorga RPh - 08/07/2023 12:21 PM ESTSigned Prescriptions: Disp Refills carBAMazepine ER 300 MG Oral Capsule Exten*360 Ca*1 Sig: TAKE 2 CAPSULES BY MOUTH IN THE MORNING AND 2 AT BEDTIMEAuthorizing Provider: MELISSA ARGUELLO User: BRE ASTORGA * Telephone Encounter - Raúl Farrell - 08/07/2023 4:52 AM ESTPending Prescriptions: Disp Refills carBAMazepine ER 300 MG Oral Capsule Exten*360 Ca*1 Sig: TAKE 2 CAPSULES BY MOUTH IN THE MORNING AND 2 AT BEDTIME * Telephone Encounter - Raúl Farrell - 08/07/2023 4:50 AM EST Did you pend patient's preferred pharmacy and medication before forwarding?yes Pharmacy: [id number] [address] [facility] Pending Prescriptions: Disp Refills carBAMazepine ER 300 MG Oral Capsule Exte*360 Ca*1 Sig: TAKE 2 CAPSULES BY MOUTH IN THE MORNING AND 2 AT BEDTIME Last Visit: 05/07/2023 (in office), 12/17/2019 (telemedicine) Next Visit: 11/08/2023 If no future appointments scheduled, and last appointment is greater than a year ago, please schedule patient for a follow-up appointment Last date the medication was ordered: 02/06/2023 Is this request for a controlled substance?No Urine Drug Screen:No results found for this or any previous visit. Patient Phone Numbers Labs: Lab Results Component Value Date/Time CREAT 0.7 07/23/2023 01:11 PM CREAT 0.7 07/30/2019 03:57 PM POTASSIUM 3.9 07/23/2023 01:11 PM POTASSIUM 3.9 07/30/2019 03:57 PM TSH 3.68 08/18/2005 05:46 PM ALT 16 07/23/2023 01:11 PM ALT 9 (L) 07/30/2019 03:57 PM documented in this encounter Plan of Treatment Upcoming Encounters Date Type Department Care Team (Late st Contact Info) Description 08/31/2023 3:45 PM EDT Office Visit Gynecology[facility]stetrics [place] [address] [facility] [place] [address] Lena Lr MD [address] [facility] [place] [address] 10/22/2023 12:00 PM EDT Office Visit Gynecology/Obstetrics [address] [place] [address] Ana Chacko CRNP [address] [place] [address] 11/08/2023 10:00 AM EDT Office Visit Neurology [facility] [address] [place] [address] L[address] Chester MD 100 [place], [place] [id number] 12/25/2023 8:00 AM EDT Office Visit Gastroenterology, [facility] [address] [facility] [place] [address] Kathryn Huntley CRNP 132 [facility] [place] [address] Health Maintenance Due Date Last Done Comments Pneumococcal Vaccine: Pediatrics (0 to 5 Years) and At-Risk Patients (6 to 64 Years) (1 of 2 - PCV) 1994 HIV Screening 2003 Hepatitis C Screening 2006 Hepatitis B (1 of 3 - 19+ 3-dose series) 2007 HPV/Co-Test 2018 Cervical Cancer Screening 05/18/2018 Pap Smear 05/18/2018 05/18/2015, 05/18/2015 Depression Screening 10/03/2019 10/02/2018 DTaP,Tdap,and Td Vaccines (6 - Td or Tdap) 01/31/2023 01/31/2013, 04/09/1990, 1988, Additional history exists COVID-19 Vaccine (3 - 2023-24 season) 2023 11/03/2020, 10/13/2020 Diabetes Screening 07/23/2026 07/23/2023, 0 07/30/2019, 09/24/2018, Additional history exists Influenza Vaccine (FLU shot) Completed 10/2023, 03/31/2022, 07/30/2019, Additional history exists GARDASIL-HPV IMMUNIZATION SERIES Aged Out No longer eligible based on patient's age to complete this topic MENINGOCOCCAL (MENACTRA/MENVEO) Aged Out No longer eligible based on patient's age to complete this topic documented as of this encounter Medical Devices Not on filedocumented as of this encounter Visit Diagnoses Diagnosis Seizure disorder (HCC) Unspecified epilepsy without mention of intractable epilepsy documented in this encounter Care Teams Patient Attendant Relationship Specialty Start Date End Date Arabella Noland DO [address] [place] [address] PCP - General Family Medicine 11/16/14 documented as of this encounter
--- OUTSIDE RECORDS SUMMARY | 2023-08-19 12:34 | External Medical Summary ---
Author Name Unknown Address Unknown Organization [id number]:LABORATORY [facility] - [address] [place] [address] Laboratory Report Ordering Provider Test Date Status JOS TRUONG 07/23/2023 13:11:52 Final Observation Date Value Abnormality Reference (Units ) Status Carbamazepine 07/23/2023 13:11:52 12.3 Above high som l 4.0-12.0 (ug/mL) Final Performing Location LABORATORY [facility] - [address] [place] [address]
--- OUTSIDE RECORDS SUMMARY | 2023-08-19 12:34 | External Medical Summary ---
Author Name Unknown Address Unknown Organization [id number]:LABORATORY [facility] - [address] [place] [id number] Laboratory Report Ordering Provider Test Date Status BERNY OCHOA 08/13/2023 11:40:11 Final Observation Date Value Abnormality Reference (Units ) Status BUN 08/13/2023 11:40:11 9 6-20 (mg/dL) Final Creatinine 08/13/2023 11:40:11 0.8 0.5-1.0 (mg/dL) Final Glomerular filtration rate/1.73 sq M.predicted [Volume Rate/Area] in Serum, Plasma or Blood by Creatinine-based formula (CKD-EPI) 08/13/2023 11:40:11 >90 >=60 (mL/min) Final eGFR is calculated based on the CKD-EPI 2020 equation SODIUM 08/13/2023 11:40:11 134 Below low normal 135 -146 (mmol/L) Final Potassium 08/13/2023 11:40:11 4.5 3.5-5.1 (m mol/L) Final Cl 08/13/2023 11:40:11 97 Below low normal 98- 107 (mmol/L) Final CO2 08/13/2023 11:40:11 25 22-32 (mmo l/L) Final Anion gap 08/13/2023 11:40:11 12 7-15 (mmol /L) Final Glucose 08/13/2023 11:40:11 82 70-120 (mg /dL) Final Calcium 08/13/2023 11:40:11 9.2 8.4-10.2 ( mg/dL) Final Performing Location LAB[facility]ORY [facility] - [address] [place] [address]
--- OUTSIDE RECORDS SUMMARY | 2023-08-19 12:34 | External Medical Summary | Summary of Care ---
Author Name Unknown Organization [facility] Address [address] [facility] [place] [address] Phone [phone] Care Team Providers Care Torch Cutter Name Role Phone Arabella Noland DO Primary Care Provider Reason for Visit * Reason Comments Outpatient Testing Encounter Details Date Type Department Care Team (Late st Contact Info) Description 08/13/2023 12:20 PM EST Laboratory Laboratory, [facility] [place] [phone] [facility] [address] Constipation, unspecified constipation type Allergies Active Allergy Reactions Criticality Noted Date Comments Sulfamethoxazole-Trimethopr im Diarrhea High 11/16/2014 Sulfamethoxazole-Trimethopr im Diarrhea 05/24/2018 Nausea, vomiting and diarrhea, abdominal pain Prednisone 09/27/2015 Does not gagandeep when on dilantin documented as of this encounter (statuses as of 08/13/2023) Medications Medication Sig Dispensed Refills Start Date End Date Status Albuterol Sulfate HFA 108 (90 Base) MCG/ACT Inhalation Aerosol SolutionIndications :Complicated bronchitis Inhale by mouth 2 Puffs every 4 hours as needed for Wheezing. 18 g 5 11/02/2021 Active Senna 8.6 MG Oral TabletIndications:C onstipation, unspecified constipation type TAKE 1 TAB BY MOUTH 2 TIMES A DAY. 60 Tablet 3 11/02/2021 Active Ipratropium-Albuter ol 0.5-2.5 (3) MG/3ML Inhalation Solution (Duoneb) Inhale 3 mL via nebulizer every 6 hours as needed for Shortness of Breath. 360 mL 3 09/25/2022 Active Additional Information Patient not taking.Reported on 08/13/2023 carBAMazepine 100 MG Oral Tablet Chewable (Tegretol)Indicatio ns:Generalized convulsive epilepsy without intractable epilepsy (HCC) Chew 1 & 1/2 tablets by mouth twice daily with the 300 mg tabs 90 Tablet 5 05/24/2023 Active clonazePAM 1 MG Oral Tablet (KlonoPIN)Indicatio ns:Idiopathic torsion dystonia Take 1 Tablet by mouth in the morning and 1 Tablet at noon and 1 Tablet in the evening and 1 Tablet before bedtime. 120 Tablet 2 05/28/2023 Active Phenytoin Sodium Extended 100 MG Oral Capsule (Dilantin)Indicatio ns:Anxiety state TAKE 2 CAPSULES BY MOUTH TWICE DAILY (MORNING,EVENING) 120 Capsule 5 07/12/2023 Active DULoxetine HCl 60 MG Oral Capsule Delayed Release Particles (Cymbalta) Take 1 Capsule by mouth in the morning. 0 07/01/2023 Active Ondansetron HCl 4 MG Oral Tablet (Zofran)Indications :Nausea and vomiting, unspecified vomiting type TAKE 1 TABLET BY MOUTH EVERY 6 HOURS NEEDED FOR NAUSEA 30 Tablet 1 07/23/2023 Active carBAMazepine ER 300 MG Oral Capsule Extended Release 12 Hour (Carbatrol)Indicati ons:Seizure disorder (HCC) TAKE 2 CAPSULES BY MOUTH IN THE MORNING AND 2 AT BEDTIME 360 Capsule 1 08/07/2023 Active documented as of this encounter (statuses as of 08/13/2023) Active Problems Problem Noted Date Diagnosed Date 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 Medical marijuana use 03/15/2018 Overview: Since 11/02--vaporiser pen Diarrhea 01/09/2018 Chronic low back pain 10/05/2015 Seizure disorder 10/05/2015 Anxiety state 10/05/2015 Dilantin toxicity 10/05/2015 Myoclonus 07/28/2005 Overview: possible documented as of this encounter (statuses as of 08/13/2023) Resolved Problems Problem Noted Date Diagnosed Date [...] as of this encounter (statuses as of 08/13/2023) Immunizations Name Administration Dates Next Due COVID-19 mRNA, LNP-s, No Pre serve, 2-Dose Series ([employer]) 11/03/2020,10/13/2020 Seasonal Influenza, PF, 6 M & [...] No 02/05/2018 documented as of this encounter Plan of Treatment Upcoming Encounters Date Type Department Care Team (Late st Contact Info) Description 08/13/2023 12:00 PM EST Imaging Radiology [facility] 1st Floor, [address] [place] [address] Arrived 08/13/2023 2:15 PM EST Imaging Radiology [facility] 2nd Floor, [address] [place] [address] 08/17/2023 8:15 AM EST Imaging [facility] 2nd Floor Cardiology, [address] [place] [address] 08/17/2023 9:45 AM EST Imaging [facility] 2nd Floor Cardiology, [place] [address] [facility] [place] [address] 08/17/2023 10:45 AM EST Imaging [facility] 2nd Floor Cardiology, [address] [place] [address] 08/17/2023 12:45 PM EST Imaging [facility] 2nd Floor Cardiology, [address] [place] [address] 08/31/2023 3:45 PM EDT Office Visit Gynecology/Obstetrics [facility] [address] [place] [address] Lena Lr MD [address] [place] [address] 10/22/2023 12:00 PM EDT Office Visit Gynecology/Obstetrics [address] [place] [address] Ana Chacko CRNP [address] [place] [address] 11/08/2023 10:00 AM EDT Office Visit Neurology [facility] 200 [facility] [place] [address] Ld Chester MD 100 [place] [address] Pending Results Name Type Priority Associated Diagnoses Date /Time TSH WITH FREE T4 IF INDICATED Lab Routine Constipation, unspecified constipation type 08/13/2023 11:40 AM EST BASIC METABOLIC PANEL Lab Routine Constipation, unspecified constipation type 08/13/2023 11:40 AM EST Health Maintenance Due Date Last Done Comments [...] 04/09/1990, 1988, Additional history exists COVID-19 Vaccine (2022- season) 2023 11/03/2020, 10/13/2020 Diabetes Screening 07/23/2026 [...] as of this encounter Visit Diagnoses Diagnosis Constipation, unspecified constipation type documented in this encounter Care Teams Torch Cutter Relationship Specialty Start Date End Date Arabella Noland DO [address] [place] [address] PCP - General Family Medicine 11/16/14 documented as of this encounter
--- OUTSIDE RECORDS SUMMARY | 2023-08-19 12:34 | External Medical Summary ---
Author Name Unknown Address Unknown Organization K01:[facility]ATORY [facility] - [address] [facility] [address] [facility] [address] Laboratory Report Ordering Provider Test Date Status GABRIELAMARLONNEO 08/13/2023 11:40:11 Final Observation Date Value Abnormality Reference (Units ) Status TSH 08/13/2023 11:40:11 1.93 0.27-4.20 (uIU/mL) Final Performing Location LAB[facility]ATORY [facility] - [address] [facility] [address]
--- OUTSIDE RECORDS SUMMARY | 2023-08-19 12:34 | External Medical Summary | Summary of Care ---
Author Name Unknown Organization [facility] Address [address] [place] [address] Phone [phone] Care Team Providers Care Apparatus Lineman Name Role Phone Arabella Noland DO Primary Care Provider [phone] Reason for Visit * Reason Comments Outpatient Testing Encounter Details Date Type Department Care Team (Late st Contact Info) Description 07/23/2023 2:00 PM EST Laboratory Laboratory, [place] [address] [place] [phone] [place], Laboratory [address] [place], [place] [id number] Encounter for long-term (current) drug use; Seizure disorder (HCC); [employer] Other*[id number]; Screening for diabetes mellitus Allergies Active Allergy Reactions Criticality Noted Date Comments Sulfamethoxazole-Trimethopr im Diarrhea High 11/16/2014 Sulfamethoxazole-Trimethopr im Diarrhea 05/24/2018 Nausea, vomiting and diarrhea, abdominal pain Prednisone 09/27/2015 Does not gagandeep when on dilantin documented as of this encounter (statuses as of 07/23/2023) Medications Medication Sig Dispensed Refills Start Date End Date Status Albuterol Sulfate HFA 108 (90 Base) MCG/ACT Inhalation Aerosol SolutionIndications :Complicated bronchitis Inhale by mouth 2 Puffs every 4 hours as needed for Wheezing. 18 g 5 11/02/2021 Active Senna 8.6 MG Oral TabletIndications:C onstipation, unspecified constipation type TAKE 1 TAB BY MOUTH 2 TIMES A DAY. 60 Tablet 3 11/02/2021 Active Benzonatate 100 MG Oral CapsuleIndications: Viral URI with cough Take 1 Capsule by mouth 3 times a day as needed for Cough. 30 Capsule 1 09/23/2022 Active Additional Information Patient not taking.Reported on 07/23/2023 Ipratropium-Albuter ol 0.5-2.5 (3) MG/3ML Inhalation Solution (Duoneb) Inhale 3 mL via nebulizer every 6 hours as needed for Shortness of Breath. 360 mL 3 09/25/2022 Active carBAMazepine ER 300 MG Oral Capsule Extended Release 12 Hour (Carbatrol)Indicati ons:Seizure disorder (HCC) TAKE 2 CAPSULES BY MOUTH IN THE MORNING AND 2 AT BEDTIME 360 Capsule 1 02/06/2023 Active carBAMazepine 100 MG Oral Tablet Chewable (Tegretol)Indicatio [...] FOR NAUSEA 30 Tablet 1 07/23/2023 Active documented as of this encounter (statuses as of 07/23/2023) Active Problems Problem Noted Date Diagnosed Date 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 Medical marijuana use 03/15/2018 Overview: Since 11/02--vaporiser pen Diarrhea 01/09/2018 Chronic low back pain 10/05/2015 Seizure disorder 10/05/2015 Anxiety state 10/05/2015 Dilantin toxicity 10/05/2015 Myoclonus 07/28/2005 Overview: possible documented as of this encounter (statuses as of 07/23/2023) Resolved Problems Problem Noted Date Diagnosed Date [...] as of this encounter (statuses as of 07/23/2023) Immunizations Name Administration Dates Next Due COVID-19 mRNA, LNP-s, No Pre serve, 2-Dose Series ([employer] 11/03/2020,10/13/2020 Seasonal Influenza, PF, 6 M & [...] Care Team (Late st Contact Info) Description 07/26/2023 1:00 PM EST Imaging Radiology [facility] [address] [place] [address] 10/22/2023 12:00 PM EDT Office Visit Gynecology/Obstetrics [address] [place] [address] Ana Chacko CRNP [address] [place] [address] 11/08/2023 10:00 AM EDT Office Visit Neurology [facility] [address] [facility] [place] [address] Ld Chester MD [address] [place], [place] [id number] Pending Results Name Type Priority Associated Diagnoses Date /Time COMPREHENSIVE METABOLIC PANEL Lab Routine Encounter for long-term (current) drug use 07/23/2023 1:11 PM EST CBC WITH WBC DIFFERENTIAL Lab Routine Encounter for long-term (current) drug use 07/23/2023 1:11 PM EST PHENYTOIN LEVEL Lab Routine Seizure disorder (HCC) 07/23/2023 1:11 PM EST CARBAMAZEPINE LEVEL Lab Routine Seizure disorder (HCC) 07/23/2023 1:11 PM EST MYCODE SUBSEQUENT ADULT Lab Routine [employer] Other*[id number] 07/23/2023 1:11 PM EST CBC Lab Routine Encounter for long-term (current) drug use 07/23/2023 1:11 PM EST DIFFERENTIAL, AUTOMATED Lab Routine Encounter for long-term (current) drug use 07/23/2023 1:11 PM EST MYCODE SST1 Lab Routine [employer] Other*[id number] 07/23/2023 1:11 PM EST MYCODE SST2 Lab Routine [employer] Other*[id number] 07/23/2023 1:11 PM EST Health Maintenance Due Date Last Done Comments Hepatitis B (1 of 3 - 3-dose series) 1988 Pneumococcal Vaccine: Pediatrics (0 to 5 Years) and At-Risk Patients (6 to 64 Years) (1 - PCV) 1994 HIV Screening 2003 Hepatitis C Screening 2006 HPV/Co-Test 2018 Cervical Cancer Screening 05/18/2018 Pap Smear 05/18/2018 05/18/2015, 05/18/2015 Depression Screening 10/03/2019 10/02/2018 Diabetes Screening 07/30/2022 07/30/2019, 0 09/24/2018, 09/18/2018, Additional history exists DTaP,Tdap,and Td Vaccines (6 - Td or Tdap) 01/31/2023 01/31/2013, 04/09/1990, 1988, Additional history exists COVID-19 Vaccine ( - 2022- season) 2023 11/03/2020, 10/13/2020 Influenza Vaccine (FLU shot) Completed 10/2023, 03/31/2022, 07/30/2019, Additional history exists GARDASIL-HPV IMMUNIZATION SERIES Aged Out No longer eligible based on patient's age to complete this topic MENINGOCOCCAL (MENACTRA/MENVEO) Aged Out No longer eligible based on patient's age to complete this topic documented as of this encounter Medical Devices Not on filedocumented as of this encounter Visit Diagnoses Diagnosis Encounter for long-term (current) drug use Encounter for long-term (current) use of other medications Seizure disorder (HCC) Unspecified epilepsy without mention of intractable epilepsy [employer] Other*[id number] Screening for diabetes mellitus documented in this encounter Care Teams Apparatus Lineman Relationship Specialty Start Date End Date Arabella Noland DO [address] [place] [address] PCP - General Family Medicine 11/16/14 documented as of this encounter
--- OUTSIDE RECORDS SUMMARY | 2023-08-19 12:34 | External Medical Summary | Summary of Care ---
Author Name Unknown Organization [facility] Address [address] [place] [address] Phone [phone] Care Team Providers Care Bale Piler Name Role Phone Arabella Noland DO Primary Care Provider Reason for Visit * Reason Onset Date Comments Med Request 07/11/2023 Encounter Details Date Type Department Care Team (Late st Contact Info) Description 07/11/2023 Telephone Neurology, [place] [address] [place] [address] Services, [facility] [place] [address] [place] [address] Med Request Allergies Active Allergy Reactions Criticality Noted Date Comments Sulfamethoxazole-Trimethopr im Diarrhea High 11/16/2014 Sulfamethoxazole-Trimethopr im Diarrhea 05/24/2018 Nausea, vomiting and diarrhea, abdominal pain Prednisone 09/27/2015 Does not gagandeep when on dilantin documented as of this encounter (statuses as of 07/12/2023) Medications Medication Sig Dispensed Refills Start Date End Date Status Venlafaxine HCl ER 150 MG Oral Capsule Extended Release 24 Hour (Effexor XR) TAKE 1 CAP BY MOUTH DAILY. EVERY MORNING. 90 Capsule 0 06/29/2021 Active Venlafaxine HCl ER 75 MG Oral Tablet Extended Release 24 Hour Take 1 Tablet by mouth in the morning. 0 Active Albuterol Sulfate HFA 108 (90 Base) MCG/ACT Inhalation Aerosol SolutionIndications: Complicated bronchitis Inhale by mouth 2 Puffs every 4 hours as needed for Wheezing. 18 g 5 11/02/2021 Active Ondansetron HCl 4 MG Oral Tablet (Zofran)Indications: Nausea and vomiting, intractability of vomiting not specified, unspecified vomiting type TAKE 1 TABLET BY MOUTH EVERY 6 HOURS NEEDED FOR NAUSEA 30 Tablet 0 11/02/2021 Active Senna 8.6 MG Oral TabletIndications:Co nstipation, unspecified constipation type TAKE 1 TAB BY MOUTH 2 TIMES A DAY. 60 Tablet 3 11/02/2021 Active Benzonatate 100 MG Oral CapsuleIndications:V iral URI with cough Take 1 Capsule by mouth 3 times a day as needed for Cough. 30 Capsule 1 09/23/2022 Active Ipratropium-Albutero l 0.5-2.5 (3) MG/3ML Inhalation Solution (Duoneb) Inhale 3 mL via nebulizer every 6 hours as needed for Shortness of Breath. 360 mL 3 09/25/2022 Active carBAMazepine ER 300 MG Oral Capsule Extended Release 12 Hour (Carbatrol)Indicatio ns:Seizure disorder (HCC) TAKE 2 CAPSULES BY MOUTH IN THE MORNING AND 2 AT BEDTIME 360 Capsule 1 02/06/2023 Active carBAMazepine 100 MG Oral Tablet Chewable (Tegretol)Indication s:Generalized convulsive epilepsy without intractable epilepsy (HCC) Chew 1 & 1/2 tablets by mouth twice daily with the 300 mg tabs 90 Tablet 5 05/24/2023 Active clonazePAM 1 MG Oral Tablet (KlonoPIN)Indication s:Idiopathic torsion dystonia Take 1 Tablet by mouth in the morning and 1 Tablet at noon and 1 Tablet in the evening and 1 Tablet before bedtime. 120 Tablet 2 05/28/2023 Active Amoxicillin-Pot Clavulanate 875-125 MG Oral Tablet (Augmentin)Indicatio ns:Abscessed tooth Take 1 Tablet by mouth in the morning and 1 Tablet before bedtime. Do all this for 10 days. 20 Tablet 0 07/02/2023 07/12/2023 Active Phenytoin Sodium Extended 100 MG Oral Capsule (Dilantin)Indication s:Anxiety state TAKE 2 CAPSULES BY MOUTH IN THE MORNING AND 2 IN THE EVENING 120 Capsule 5 07/12/2023 Active documented as of this encounter (statuses as of 07/12/2023) Active Problems Problem Noted Date Diagnosed Date 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 Medical marijuana use 03/15/2018 Overview: Since 5/18--vaporiser pen Diarrhea 01/09/2018 Chronic low back pain 10/05/2015 Seizure disorder 10/05/2015 Anxiety state 10/05/2015 Dilantin toxicity 10/05/2015 Myoclonus 07/28/2005 Overview: possible documented as of this encounter (statuses as of 07/12/2023) Resolved Problems Problem Noted Date Diagnosed Date [...] as of this encounter (statuses as of 07/12/2023) Immunizations Name Administration Dates Next Due COVID-19 mRNA, LNP-s, No Pre serve, 2-Dose Series (StockTwits) 11/03/2020,10/13/2020 Seasonal Influenza, PF, 6 M & above, IM , (FluLaval or Fluzone) 07/30/2019 TDAP (age 10 and older)(Boostrix) 01/31/2013 documented as of this encounter Social History Tobacco Use Types Packs/Day Years Used Date Smoking Tobacco: Former Cigarettes Q uit: 02/16/2010 Smokeless Tobacco: Never Comments:Quit in 05/17/15. Alcohol [...] encounter Miscellaneous Notes * Telephone Encounter - Merry Murray OSA - 07/11/2023 3:36 PM EST Requested Information from caller: Who is calling patient Provider patient is established with: benny Maciel What is the concern or issue they are having: Medication Refill How long has the issue been going on: 07/10 Any additional details to add: yes: pt is out of Phenytoin Sodium Refill medication, and needs labsfor approval, and is asking for couple day supply. Please assist in getting pt medication supply till she is able to complete labs. Pts phone number for nurse to call back: [phone] Please make sure you verify pharmacy for anything medication related. Form to be used for established patients only (not new patients) documented in this encounter Plan of Treatment Upcoming Encounters Date Type Department Care Team (Late st Contact Info) Description 07/23/2023 11:50 AM EST [facility] [address] [facility] [address] Arabella Noland DO [address] [place] [address] 10/22/2023 12:00 PM EDT Office Visit Gynecology/Obstetrics [address] [place] [address] Ana Chcako CRNP [address] [place] [address] 11/08/2023 10:00 AM EDT Office Visit [facility] [address] [facility] [address] MD [address] [place] [address] Health Maintenance Due Date Last Done Comments [...] Additional history exists COVID-19 Vaccine (3 - 2022- season) 2023 11/03/2020, 10/13/2020 Influenza Vaccine (FLU shot) (#1) 2023 03/31/2022, 07/30/2019, 07/30/2019 GARDASIL-HPV IMMUNIZATION SERIES Aged Out No longer eligible based on patient's age to complete this topic MENINGOCOCCAL (MENACTRA/MENVEO) Aged Out No longer eligible based on patient's age to complete this topic documented as of this encounter Medical Devices Not on filedocumented as of this encounter Visit Diagnoses Diagnosis Anxiety state Anxiety state, unspecified documented in this encounter Care Teams Bale Piler Relationship Specialty Start Date End Date Arabella Noland DO [address] [place], [place] [phone] PCP - General Family Medicine 11/16/14 documented as of this encounter
--- OUTSIDE RECORDS SUMMARY | 2023-08-19 12:34 | External Medical Summary ---
Author Name Unknown Address Unknown Organization K01:[facility] [place] [address] [place] [address] Laboratory Report Ordering Provider Test Date Status GIANFRANCO BUSH 07/23/2023 13:11:52 Final Observation Date Value Abnormality Reference (Units ) Status MYCODE SPECIMEN-SST 07/23/2023 13:11:52 Freezing of extracted DNA, whole blood and/or serum. Final Performing Location LABORATORY [facility] - [address] [place] [address]
--- OUTSIDE RECORDS SUMMARY | 2023-08-19 12:34 | External Medical Summary | Summary of Care ---
Author Name Unknown Organization [facility] Address [address] [facility] [place] [address] Phone [phone] Care Team Providers Care Practice Coordinator Name Role Phone Arabella Noland DO Primary Care Provider [phone] Reason for Visit * Reason Onset Date Comments Test Results Lab 08/13/2023 Encounter Details Date Type Department Care Team (Late st Contact Info) Description 08/13/2023 Telephone Gastroenterology, [facility] [address] [place] [address] Kathryn Huntley CRNP [address] [place] [address] Test Results Lab Allergies Active Allergy Reactions Criticality Noted Date Comments Sulfamethoxazole-Trimethopr im Diarrhea High 11/16/2014 Sulfamethoxazole-Trimethopr im Diarrhea 05/24/2018 Nausea, vomiting and diarrhea, abdominal pain Prednisone 09/27/2015 Does not gagandeep when on dilantin documented as of this encounter (statuses as of 08/14/2023) Medications Medication Sig Dispensed Refills Start Date [...] AT BEDTIME 360 Capsule 1 08/07/2023 Active linaCLOtide 145 MCG Oral Capsule (Linzess) Take 1 Capsule by mouth daily before breakfast. 90 Capsule 1 08/14/2023 Active documented as of this encounter (statuses as of 08/14/2023) Active Problems Problem Noted Date Diagnosed Date 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 Medical marijuana use 03/15/2018 Overview: Since 11/02--vaporiser pen Diarrhea 01/09/2018 Chronic low back pain 10/05/2015 Seizure disorder 10/05/2015 Anxiety state 10/05/2015 Dilantin toxicity 10/05/2015 Myoclonus 07/28/2005 Overview: possible documented as of this encounter (statuses as of 08/14/2023) Resolved Problems Problem Noted Date Diagnosed Date [...] as of this encounter (statuses as of 08/14/2023) Immunizations Name Administration Dates Next Due COVID-19 mRNA, LNP-s, No Pre serve, 2-Dose Series (eDossea) 11/03/2020,10/13/2020 Seasonal Influenza, PF, 6 M & [...] as of this encounter Miscellaneous Notes * Addendum Note - Kathryn Huntley CRNP - 08/14/2023 10:27 AM EST Addended by: KATHRYN HUNTLEY on: 08/14/2023 10:27 AM Modules accepted: Orders * Telephone Encounter - Kathryn Huntley CRNP - 08/14/2023 10:23 AM EST Kub and abd us also returned Needs recall abd us in 6 months to follow up on hepatic hemangioma, otherwise no acute findings on abd us Kub shows moderate constipation but no obstruction Will attempt script for linzess again In the interim, miralax 1-2 capfuls 1-2 times daily May use dulcolax OTC if no BM in 48 hours ABD US: LIVER: Normal echogenicity. Hyperechoic lesion in the right hepatic lobe measuring 0.9 x 0.6 x 1.1 cm, likely hemangioma. BILE DUCTS: No intrahepatic or extrahepatic duct dilatation. The common bile duct measures 3 mm. GALLBLADDER: No cholelithiasis, gallbladder wall thickening, or pericholecystic fluid. PANCREAS: Limited visualization. Visualized portions are unremarkable. RIGHT KIDNEY: 9.5 cm in length. No hydronephrosis, shadowing calculi, or focal lesion. OTHER: No ascites. IMPRESSION 1. No cholelithiasis or evidence of acute cholecystitis. 2. Probable right hepatic lobe hemangioma. Recommend follow-up with ultrasound in 6 months. KUB: The bowel gas pattern is nonobstructive. No dilated loops of bowel are seen. Moderate colonic fecal material. There are no abnormal calcifications. Visualized osseous structures are unremarkable. IMPRESSION IMPRESSION Moderate colonic fecal material. * Telephone Encounter - Eliza Stanley RN - 08/13/2023 1:54 PM EST Pt notified * Telephone Encounter - Eliza Stanley RN - 08/13/2023 1:51 PM EST ----- Message from ANTOINETTE Klein sent at 08/13/2023 1:01 PM EST ----- Please let her know the kidney tests were normal Sodium and chloride one pt below normal range but stable Other e-lytes looked okay ANTOINETTE You 08/13/2023 1:01 PM documented in this encounter Plan of Treatment Upcoming Encounters Date Type Department Care Team (Late st Contact Info) Description 08/17/2023 8:15 AM EST Imaging [facility] 2nd Floor Cardiology, [address] [place] [address] 08/17/2023 9:45 AM EST Imaging [facility] 2nd Floor Cardiology, [place] [facility] [place] [address] 08/17/2023 10:45 AM EST Imaging [facility] 2nd [facility], [address] [place] [address] 08/17/2023 12:45 PM EST [address] [place] [address] 08/31/2023 3:45 PM EDT Office Visit Gynecology/Obstetrics [address] [address] Lena Lr MD [address] [place] [address] [place] [address] 10/22/2023 12:00 PM EDT Office Visit Gynecology/Obstetrics [address] [place] [address] Ana Chacko CRNP [address] [facility] [address] 11/08/2023 10:00 AM EDT Office Visit Neurology [facility] [place] [address] [facility] [address] [address] MD [address] [place] [address] Scheduled Orders Name Type Priority Associated Diagnoses Orde r Schedule US ABDOMEN LIMITED Medical Imaging Routine Hemangioma of liver Expected: 02/12/2024, Expires: 09/11/2024 Health Maintenance Due Date Last Done Comments [...] (3 - 2022- season) 2023 11/03/2020, 10/13/2020 Diabetes Screening 08/13/2026 08/13/2023, 0 07/23/2023, 07/30/2019, Additional history exists Influenza Vaccine (FLU shot) Completed 10/2023, 03/31/2022, 07/30/2019, Additional history exists GARDASIL-HPV IMMUNIZATION SERIES Aged Out No longer eligible based on patient's age to complete this topic MENINGOCOCCAL (MENACTRA/MENVEO) Aged Out No longer eligible based on patient's age to complete this topic documented as of this encounter Medical Devices Not on filedocumented as of this encounter Visit Diagnoses Diagnosis Hemangioma of liver- Primary Hemangioma of intra-abdominal structures documented in this encounter Care Teams Practice Coordinator Relationship Specialty Start Date End Date Arabella Noland DO [address] [place] [address] PCP - General Family Medicine 11/16/14 documented as of this encounter
--- OUTSIDE RECORDS SUMMARY | 2023-08-19 12:34 | External Medical Summary | Summary of Care ---
Author Name Unknown Organization [facility] Address [address] [place] [address] Phone [phone] Care Team Providers Care Theater Projectionist Name Role Phone Haydenkavita Arabella Julia CADE Primary Care Provider Reason for Visit * Reason Comments Sore Throat Encounter Details Date Type Department Care Team (Late st Contact Info) Description 07/02/2023 3:40 PM EST [facility] [address] [place] [phone] Ronni Dudley MD [address] [place] [address] Abscessed tooth* Allergies Active Allergy Reactions Criticality Noted Date Comments Sulfamethoxazole-Trimethopr im Diarrhea High 11/16/2014 Sulfamethoxazole-Trimethopr im Diarrhea 05/24/2018 Nausea, vomiting and diarrhea, abdominal pain Prednisone 09/27/2015 Does not gagandeep when on dilantin documented as of this encounter (statuses as of 07/02/2023) Medications Medication Sig Dispensed Refills Start Date [...] A DAY. 60 Tablet 3 11/02/2021 Active Phenytoin Sodium Extended 100 MG Oral Capsule (Dilantin)Indication s:Anxiety state TAKE 2 CAPSULES BY MOUTH IN THE MORNING AND 2 IN THE EVENING 120 Capsule 5 08/07/2022 Active Benzonatate 100 MG Oral CapsuleIndications:V iral [...] days. 20 Tablet 0 07/02/2023 07/12/2023 Active documented as of this encounter (statuses as of 07/02/2023) Active Problems Problem Noted Date Diagnosed Date 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 Medical marijuana use 03/15/2018 Overview: Since 11/02--vaporiser pen Diarrhea 01/09/2018 Chronic low back pain 10/05/2015 Seizure disorder 10/05/2015 Anxiety state 10/05/2015 Dilantin toxicity 10/05/2015 Myoclonus 07/28/2005 Overview: possible documented as of this encounter (statuses as of 07/02/2023) Resolved Problems Problem Noted Date Diagnosed Date [...] as of this encounter (statuses as of 07/02/2023) Immunizations Name Administration Dates Next Due COVID-19 mRNA, LNP-s, No Pre serve, 2-Dose Series (Pfizer) 11/03/2020,10/13/2020 Seasonal Influenza, PF, 6 M & [...] No 02/05/2018 documented as of this encounter Progress Notes * Ronni Dudley MD - 07/02/2023 4:57 PM EST Patient location: HOME. I was in a hospital or clinic location. After connecting through televideo,patient was verified with two unique identifiers. Patient (or authorized legal route service representative) was then informed that this was a Telemedicine visit and being conducted confidentially over secure lines. Methods to assure confidentiality were taken. Patient acknowledged consent and understanding of pr ivacy and security of the Telemedicine visit. The patient agreed to participate. Subjective: Donya Hwang is a 33 year old female. No chief complaint on file. HPI: 33-year-old seen via video. She set up this appointment because of a sore throat over the lastweek. Notes the it is Um at least moderate severity and if anything has only gotten worse. She alsohas bad tooth. That had bothered her dating back several weeks but 2 weeks ago she noted whatshe felt was an abscess has she had localized swelling at the base of the tooth in the right maxilla. She had set up an appointment to see her dentist but the dentist recommended she be seen by her primary care doctor because of the sore throat before seen by the dentist. She has had no cough or fever. She did not do a COVID test. She has had some purulent drainage from the base of the tooth. Patient Active Problem List Diagnosis Code Myoclonus G25.3 Chronic low back pain M54.50, G89.29 Seizure disorder (HCC) G40.909 Anxiety state F41.1 Dilantin toxicity T42.0X1A Diarrhea R19.7 Medical marijuana use Z79.899 Hepatic vein thrombosis (HCC) I82.0 Current Outpatient Medications Medication Sig Dispense Refill Venlafaxine HCl ER 150 MG Oral Capsule Extended Release 24 Hour (Effexor XR) TAKE 1 CAP BY MOUTH DAILY. EVERY MORNING. 90 Capsule 0 Venlafaxine HCl ER 75 MG Oral Tablet Extended Release 24 Hour Take 1 Tablet by mouth in the morning. Albuterol Sulfate HFA 108 (90 Base) MCG/ACT Inhalation Aerosol Solution Inhale by mouth 2 Puffs every 4 hours as needed for Wheezing. 18 g 5 Ondansetron HCl 4 MG Oral Tablet (Zofran) TAKE 1 TABLET BY MOUTH EVERY 6 HOURS NEEDED FOR [id number] Tablet 0 Senna 8.6 MG Oral Tablet TAKE 1 TAB BY MOUTH 2 TIMES A DAY. 60 Tablet 3 Phenytoin Sodium Extended 100 MG Oral Capsule (Dilantin) TAKE 2 CAPSULES BY MOUTH IN THE MORNING AND 2 IN THE EVENING 120 Capsule 5 Benzonatate 100 MG Oral Capsule Take 1 Capsule by mouth 3 times a day as needed for Cough. 30 Capsule 1 Ipratropium-Albuterol 0.5-2.5 (3) MG/3ML Inhalation Solution (Duoneb) Inhale 3 mL via nebulizer every 6 hours as needed for Shortness of Breath. 360 mL 3 carBAMazepine ER 300 MG Oral Capsule Extended Release 12 Hour (Carbatrol) TAKE 2 CAPSULES BY MOUTH IN THE MORNING AND 2 AT BEDTIME 360 Capsule 1 carBAMazepine 100 MG Oral Tablet Chewable (Tegretol) Chew 1 & 1/2 tablets by mouth twice daily with the 300 mg tabs 90 Tablet 5 clonazePAM 1 MG Oral Tablet (KlonoPIN) Take 1 Tablet by mouth in the morning and 1 Tablet at noon and 1 Tablet in the evening and 1 Tablet before bedtime. 120 Tablet 2 No current facility-administered medications for this visit. Review of patient's allergies indicates: Allergen Reactions Bactrim [Sulfamethoxazole-Trimethoprim] Diarrhea Bactrim [Sulfamethoxazole-Trimethoprim] Diarrhea Nausea, vomiting and diarrhea, abdominal pain Prednisone Does not gagandeep when on dilantin Objective: There were no vitals taken for this visit. Physical Exam: CONST: alert, pleasant, no acute distress ASSESSMENT/PLAN: 1. Probable abscess tooth Treat with Augmentin 875 mg twice daily for 10 days 2. Persistent pharyngitis times 1 week-likely underlying viral cause. Very unlikely to be strep pharyngitis but she will be on antibiotics any ways. Treat with Augmentin 875 mg twice daily for 10 days Ronni Dudley MD documented in this encounter Plan of Treatment Upcoming Encounters Date Type Department Care Team (Late st Contact Info) Description 07/23/2023 11:50 AM EST Office Visit [facility] [address] [place] [phone] Arabella Noland, [address] [place] [address] 10/22/2023 12:00 PM EDT Office Visit Gynecology/Obstetrics [address] [place] [address] Ana Chacko CRNP [address] [place] [address] 11/08/2023 10:00 AM EDT Office Visit Neurology [facility] [place] [address] [facility] [place] [address] [address] [place] MD [address] [facility] [address] Health Maintenance Due Date Last Done Comments [...] as of this encounter Visit Diagnoses Diagnosis Abscessed tooth- Primary Periapical abscess without sinus documented in this encounter Care Teams Theater Projectionist Relationship Specialty Start Date End Date Arabella Nloand DO [address] [place] [address] PCP - General Family Medicine 11/16/14 documented as of this encounter
--- OUTSIDE RECORDS SUMMARY | 2023-08-19 12:34 | External Medical Summary | Summary of Care ---
Author Name Unknown Organization [facility] Address [address] [facility] [place] [address] Phone [phone] Care Team Providers Care Pulp Screen Operator Name Role Phone Arabella Noland DO Primary Care Provider Reason for Visit * Reason Onset Date Comments Test Results Lab 08/13/2023 Encounter Details Date Type Department Care Team (Late st Contact Info) Description 08/13/2023 Telephone Gastroenterology, [facility] [address] [place] [address] Kathryn Huntley CRNP [address] [place] [address] Test Results Lab Allergies Active Allergy Reactions [...] mRNA, LNP-s, No Pre serve, 2-Dose Series (Mobincube) 11/03/2020,10/13/2020 Seasonal Influenza, PF, 6 M & [...] encounter Miscellaneous Notes * Telephone Encounter - Kendra Gant RN - 08/14/2023 10:31 AM EST I left a message for the patient to return my call. * Addendum Note - Kathryn Huntley CRNP - 08/14/2023 10:27 AM EST Addended by: KATHRYN HUNTLEY on: 08/14/2023 10:27 AM Modules accepted: Orders * Telephone Encounter - Kathryn Huntley CRNP - 08/14/2023 10:23 AM EST Kub and cristy us also returned Needs recall cristy mauircio in 6 months to follow up on [...] Info) Description 08/17/2023 8:15 AM EST [facility] 2nd Floor Cardiology, [address] [place] [address] 08/17/2023 9:45 AM EST [facility] 2nd Floor Cardiology, [address] [place] [address] 08/17/2023 10:45 AM EST [facility] 2nd Floor Cardiology, [address] [address] 08/17/2023 12:45 PM EST [facility] 2nd Floor Cardiology, [address] [place] [address] 08/31/2023 3:45 PM EDT Office Visit Gynecology/Obstetrics [address] [address] Lena Lr MD [address] [place] [address] [place] [address] 10/22/2023 12:00 PM EDT Office Visit Gynecology/Obstetrics [address] [place] [address] Ana Chacko CRNP [address] [facility] [address] 11/08/2023 10:00 AM EDT Office Visit Neurology [facility] [place] [address] [facility] [place] [address] [address] [place] MD [address] [place] [address] Scheduled Orders Name Type Priority Associated [...] Additional history exists COVID-19 Vaccine (3 - 2022-24 season) 2023 11/03/2020, 10/13/2020 Diabetes Screening 08/13/2026 [...] structures documented in this encounter Care Teams Pulp Screen Operator Relationship Specialty Start Date End Date Arabella Noland DO [address] [place] [address] PCP - General Family Medicine 11/16/14 documented as of this encounter
--- OUTSIDE RECORDS SUMMARY | 2023-08-19 12:34 | External Medical Summary ---
Author Name Unknown Address Unknown Organization K01:[facility] [place] - [address] [place] [address] [place] [address] Laboratory Report Ordering Provider Test Date Status JOS TRUONG 07/23/2023 13:11:52 Final Observation Date Value Abnormality Reference (Units ) Status Phenytoin level 07/23/2023 13:11:52 9.0 Below low norm al 10.0-20.0 (ug/mL) Final Performing Location [facility] - [address] [place] [address]
--- OUTSIDE RECORDS SUMMARY | 2023-08-19 12:34 | External Medical Summary | Summary of Care ---
Author Name Unknown Organization [facility] Address [address] [place] [address] Phone [phone] Care Team Providers Care Household Appliances Salesperson Name Role Phone Arabella Noland DO Primary Care Provider Reason for Visit * Reason Comments eRx-Medication Refill Encounter Details Date Type Department Care Team (Late st Contact Info) Description 07/10/2023 Refill Neurology [place] [address] [place] [address] Melissa Maciel PA-C [address] [place] [address] Anxiety state Allergies Active Allergy Reactions Criticality Noted Date [...] MOUTH DAILY. EVERY MORNING. 90 Capsule 0 2 Active Venlafaxine HCl ER 75 MG Oral Tablet Extended Release 24 Hour Take 1 Tablet by mouth in the morning. 0 Active Albuterol Sulfate HFA 108 (90 Base) MCG/ACT Inhalation Aerosol SolutionIndications :Complicated bronchitis Inhale by mouth 2 Puffs every 4 hours as needed for Wheezing. 18 g 5 2 Active Ondansetron HCl 4 MG Oral Tablet (Zofran)Indications :Nausea and vomiting, intractability of vomiting not specified, unspecified vomiting type TAKE 1 TABLET BY MOUTH EVERY 6 HOURS NEEDED FOR NAUSEA 30 Tablet 0 2 Active Senna 8.6 MG Oral TabletIndications:C onstipation, unspecified constipation type TAKE 1 TAB BY MOUTH 2 TIMES A DAY. 60 Tablet 3 2 Active Benzonatate 100 MG Oral CapsuleIndications: Viral URI with cough Take 1 Capsule by mouth 3 times a day as needed for Cough. 30 Capsule 1 3 Active Ipratropium-Albuter ol 0.5-2.5 (3) MG/3ML Inhalation Solution (Duoneb) Inhale 3 mL via nebulizer every 6 hours as needed for Shortness of Breath. 360 mL 3 3 Active carBAMazepine ER 300 MG Oral Capsule Extended Release 12 Hour (Carbatrol)Indicati ons:Seizure disorder (HCC) TAKE 2 CAPSULES BY MOUTH IN THE MORNING AND 2 AT BEDTIME 360 Capsule 1 3 Active carBAMazepine 100 MG Oral Tablet Chewable (Tegretol)Indicatio ns:Generalized convulsive epilepsy without intractable epilepsy (HCC) Chew 1 & 1/2 tablets by mouth twice daily with the 300 mg tabs 90 Tablet 5 3 Active clonazePAM 1 MG Oral Tablet (KlonoPIN)Indicatio ns:Idiopathic torsion dystonia Take 1 Tablet by mouth in the morning and 1 Tablet at noon and 1 Tablet in the evening and 1 Tablet before bedtime. 120 Tablet 2 3 Active Amoxicillin-Pot Clavulanate 875-125 MG Oral Tablet (Augmentin)Indicati ons:Abscessed tooth Take 1 Tablet by mouth in the morning and 1 Tablet before bedtime. Do all this for 10 days. 20 Tablet 0 4 07/12/19 24 Active Phenytoin Sodium Extended 100 MG Oral Capsule (Dilantin)Indicatio ns:Anxiety state TAKE 2 CAPSULES BY MOUTH TWICE DAILY (MORNING,EVENI NG) 120 Capsule 5 4 Active Phenytoin Sodium Extended 100 MG Oral Capsule (Dilantin)Indicatio ns:Anxiety state TAKE 2 CAPSULES BY MOUTH IN THE MORNING AND 2 IN THE EVENING 120 Capsule 5 3 07/12/19 24 Discontinued documented as of this encounter [...] mRNA, LNP-s, No Pre serve, 2-Dose Series ([employer]ep[employer]) 11/03/2020,10/13/2020 Seasonal Influenza, PF, 6 M & [...] encounter Miscellaneous Notes * Telephone Encounter - Melissa Maciel PA-C - 07/12/2023 8:31 AM EST Signed Prescriptions: Disp Refills Phenytoin Sodium Extended 100 MG Oral Caps*120 Ca*5 Sig: TAKE 2 CAPSULES BY MOUTH TWICE DAILY (MORNING,EVENING) Authorizing Provider: MELISSA MACIEL * Telephone Encounter - Manuela Samaniego, Fanwards ASSIST - 07/11/2023 3:50 PM EST Pending Prescriptions: Disp Refills Phenytoin Sodium Extended 100 MG Oral Caps*120 Ca*5 Sig: TAKE 2 CAPSULES BY MOUTH TWICE DAILY (MORNING,EVENING) * Telephone Encounter - Adry Zaragoza CPhT - 07/11/2023 2:05 PM ESTPending Prescriptions: Disp Refills Phenytoin Sodium Extended 100 MG Oral Caps*120 Ca*5 Sig: TAKE 2 CAPSULES BY MOUTH TWICE DAILY (MORNING,EVENING) * Telephone Encounter - Luis Manuel Astorga [facility] - 07/11/2023 1:29 PM ESTPending Prescriptions: Disp Refills Phenytoin Sodium Extended 100 MG Oral Caps*120 Ca*5 Sig: TAKE 2 CAPSULES BY MOUTH TWICE DAILY (MORNING,EVENING) * Telephone Encounter - Luis Manuel Astorga [facility] - 07/11/2023 1:26 PM EST Unable to authorize medication refills for pended medication(s) at this time. Part of the protocol criteria used for refill authorization was not satisfied. Patient needs labs within past year. Please approve if appropriate. Thanks, Luis Manuel Astorga, PharmD Clinical Pharmacist [facility] ([facility]) (Formerly [employer]) [phone] 07/11/2023,1:26 PM * Telephone Encounter - Yaritza Truong CPhT - 07/11/2023 1:16 PM EST Patient calling to check on status of Phenytoin Sodium Refill. Patient is out of the medication asking for urgent refill request. Caller can be reached at [phone]. Yaritza Truong CPhT-Adv Molder Sweep III [facility] ([facility]) (formerly Telepharm[facility]) 07/11/2023,1:16 PM * Telephone Encounter - Shari Marinelli CPhT - 07/11/2023 1:12 PM EST Pt calling to check on status of Phenytoin Sodium Extended 100 MG Oral Capsule (Dilantin) . Transfer Pt to specialty line Thank you, Shari Marinelli CPhT Molder Sweep II [facility] ([facility]) (Formerly [facility]) 07/11/2023,1:12 PM * Telephone Encounter - Myriam Pascual PHARM Tech - 07/10/2023 3:51 PM EST Patient is up to date for office visits. Pending Prescriptions: Disp Refills Phenytoin Sodium Extended 100 MG Oral Cap*120 Ca*0 Sig: TAKE 2 CAPSULES BY MOUTH TWICE DAILY (MORNING,EVENING) Last Visit: 05/07/2023 (in office), 12/17/2019 (telemedicine) Next Visit: 11/08/2023 If no future appointments scheduled, and last appointment is greater than a year ago, please schedule patient for a follow-up appointment Last date the medication was ordered: 08/07/2022 Pharmacy: [facility] [address] [address] [place] Is this request for a controlled substance?No it is not controlled. Urine Drug Screen:No results found for this or any previous visit. Patient Phone Numbers Labs: Lab Results Component Value Date/Time CREAT 0.7 07/30/2019 03:57 PM POTASSIUM 3.9 07/30/2019 03:57 PM TSH 3.68 08/18/2005 05:46 PM ALT 9 (L) 07/30/2019 03:57 PM * Telephone Encounter - Regla Kelly PHARM Tech - 07/10/2023 3:48 PM EST Pt called and was transferred to the Specialty line Thank you, [facility] II [facility] ([facility]) (formerly [facility]) 07/10/2023,3:48 PM documented in this encounter Plan of Treatment Upcoming Encounters Date Type Department Care Team (Late st Contact Info) Description 07/23/2023 11:50 AM EST [facility] [address] [address] Arabella Noland DO [address] [facility] [place] [address] 10/22/2023 12:00 PM EDT Office Visit Gynecology/Obstetrics [address] [place] [address] Ana Chacko CRNP [address] [place] [address] 11/08/2023 10:00 AM EDT Office Visit Neurology Kathleen Puente [place] [address] [place] [address] Ld Chester MD [address] [place] [address] Health Maintenance Due Date Last Done Comments [...] unspecified documented in this encounter Care Teams Household Appliances Salesperson Relationship Specialty Start Date End Date Arabella Noland DO [address] [place] [address] PCP - General Family Medicine 11/16/14 documented as of this encounter
--- OUTSIDE RECORDS SUMMARY | 2023-08-19 12:34 | External Medical Summary | Summary of Care ---
Author Name Unknown Organization [facility] Address [address] [place] [address] Phone [phone] Care Team Providers Care Ribbon Cutter Name Role Phone Arabella Noland DO Primary Care Provider Reason for Visit * Reason Onset Date Comments Physical-Exam Yearly Medication Administration 07/23/2023 Flu an d/or Pneumo Inj Encounter Details Date Type Department Care Team (Late st Contact Info) Description 07/23/2023 11:50 AM EST Office Visit [place] [address] [place] [phone] Arabella Noland [facility] [place] [address] Routine medical exam*; Need for prophylactic vaccination and inoculation against influenza; Seizure disorder (HCC); Medical marijuana use; Nausea and vomiting, unspecified vomiting type; Menorrhagia with regular cycle; Screening for diabetes mellitus Allergies Active Allergy [...] TWICE DAILY (MORNING,EVENING ) 120 Capsule 5 07/12/2023 Active DULoxetine HCl 60 MG Oral Capsule Delayed Release Particles (Cymbalta) Take 1 Capsule by mouth in the morning. 0 07/01/2023 Active Ondansetron HCl 4 MG Oral Tablet (Zofran)Indications :Nausea and vomiting, unspecified vomiting type TAKE 1 TABLET BY MOUTH EVERY 6 HOURS NEEDED FOR NAUSEA 30 Tablet 1 07/23/2023 Active Venlafaxine HCl ER 150 MG Oral Capsule Extended Release 24 Hour (Effexor XR) TAKE 1 CAP BY MOUTH DAILY. EVERY MORNING. 90 Capsule 0 06/29/2021 07/23/19 24 Discontinu ed(Patient preference /discontin uation) Venlafaxine HCl ER 75 MG Oral Tablet Extended Release 24 Hour Take 1 Tablet by mouth in the morning. 0 07/23/19 Discontinu ed(Patient preference /discontin uation) Ondansetron HCl 4 MG Oral Tablet (Zofran)Indications :Nausea and vomiting, intractability of vomiting not specified, unspecified vomiting type TAKE 1 TABLET BY MOUTH EVERY 6 HOURS NEEDED FOR NAUSEA 30 Tablet 0 11/02/2021 07/23/19 Discontinu ed(Refill) Phenytoin Sodium Extended 100 MG Oral Capsule (Dilantin)Indicatio ns:Anxiety state TAKE 2 CAPSULES BY MOUTH IN THE MORNING AND 2 IN THE EVENING 120 Capsule 5 07/12/2023 07/23/19 Discontinu ed(Patient preference /discontin uation) documented as of this encounter (statuses as [...] Passive Smoke Exposure: Past Smokeless Tobacco: Never Tobacco Cessation:Counseling Given: Not Answered Comments:Quit in 05/17/15. Alcohol Use Standard Drinks/Week [...] on file documented as of this encounter Last Filed Vital Signs Vital Sign Reading Time Taken Comments Blood Pressure 118/80 07/23/2023 12:10 PM EST Pulse 86 07/23/2023 12:10 PM EST Temperature 36.9 C (98.4 F) 07/23/2023 12:[address] Respiratory Rate 16 07/23/2023 12:10 PM EST Oxygen Saturation 99% 07/23/2023 12:10 PM EST Inhaled Oxygen Concentration - - Weight 88.7 kg (195 lb 9.6 oz) 07/23/2023 12:10 PM EST Height 168.9 cm (5' 6.5") 07/23/2023 12:10 PM ES T Body Mass Index 31.1 07/23/2023 12:10 PM EST documented in this encounter Functional Status Functional Status Response [...] No 02/05/2018 documented as of this encounter Patient Instructions * Patient Instructions* Barb Garg LPN - 07/23/2023 12:09 PM EST ~~PATIENT INSTRUCTIONS FOR FLU SHOT~~ Possible side effects of influenza vaccine, (flu shot), are usually mild and include: 1. Soreness or redness at injection site 2. Low grade fever 3. Body aches You may use Tylenol/Acetaminophen as needed for these symptoms. LET YOUR DOCTOR KNOW IMMEDIATELY IF YOU HAVE DIFFICULTY BREATHING OR SWALLOWING, EXPERIENCE ITCHINGOF FEET OR HANDS, HAVE SWELLING OF EYES, FACE OR INSIDE OF NOSE. documented in this encounter Progress Notes * Arabella Noland DO - 07/23/2023 12:13 PM EST Subjective: Donya Hwang is a 33 year old female. Chief Complaint Patient presents with Physical-Exam Yearly Medication Administration Flu and/or Pneumo Inj HPI: 33 year old female here today for a physical. She carries hx of chronic seizure disorder, hx of hepativ vein thrombus, no longer on anticoagulation. All meds were reviewed and past specialists notes. 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 Reports this is helping with spasms, and jerking of her legs. They are considering Deep Brain treatment. She remains on Dilantin and Tegretol. She is seeing DR hCing, via [place] and is on Cymbalta--this is 60 mg. Still ongoing vomiting, 1 time per month. This is when she is getting her period. Gets a vertigo feeling, gets nauseated, and cannot see, and then she feels this will start and have vomiting. She does have associated constipation as well. We talked about taking senna daily prior to her period, she will try this. Uses her inhaler as needed. 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 18 g 5 Ondansetron HCl 4 MG Oral Tablet (Zofran) TAKE 1 TABLET BY MOUTH EVERY 6 HOURS NEEDED FOR UCCBTG21 Tablet 0 Senna 8.6 MG Oral Tablet TAKE 1 TAB BY MOUTH 2 TIMES A DAY. 60 Tablet 3 Ipratropium-Albuterol 0.5-2.5 (3) MG/3ML Inhalation Solution (Duoneb) [...] 1 Tablet before bedtime. 120 Tablet 2 Phenytoin Sodium Extended 100 MG Oral Capsule (Dilantin) TAKE 2 CAPSULES BY MOUTH TWICE DAILY (MORNING,EVENING) 120 Capsule 5 DULoxetine HCl 60 MG Oral Capsule Delayed Release Particles (Cymbalta) Take 1 Capsule by mouth in the morning. Benzonatate 100 MG Oral Capsule Take 1 Capsule by mouth 3 times a day as needed for Cough. (Patientnot taking: Reported on 07/23/2023) 30 Capsule 1 No current facility-administered medications for this visit. Review of patient's allergies indicates: Allergen Reactions Bactrim [Sulfamethoxazole-Trimethoprim] Diarrhea Bactrim [Sulfamethoxazole-Trimethoprim] Diarrhea Nausea, vomiting and diarrhea, abdominal pain Prednisone Does not gagandeep when on dilantin Objective: There were no vitals taken for this visit. Physical Exam: General: alert, healthy, and no distress Oropharynx: no exudate, no erythema, lips, buccal mucosa, and tongue normal, and mucous membranes are moist Heart: regular rate & rhythm, no murmur, and no gallops Lungs: chest symmetric with normal AP diameter, no chest deformities noted, no chest wall tenderness, lungs clear to auscultation Abdomen: abdomen soft, non-tender, normal bowel sounds, and no masses or organomegaly Extremities: no edema Neuro Exam: alert & oriented x 3 with fluent speech, no focal motor/sensory deficits ASSESSMENT/PLAN: Routine medical exam (Primary) Need for prophylactic vaccination and inoculation against influenza - INFLUENZA VACC, QUAD, PF, 6 MONTHS & UP, 0.5 ML, IM Seizure disorder (HCC) Medical marijuana use Nausea and vomiting, unspecified vomiting type - Ondansetron HCl 4 MG Oral Tablet (Zofran); TAKE 1 TABLET BY MOUTH EVERY 6 HOURS NEEDED FOR NAUSEA Menorrhagia with regular cycle - US PELVIS TRANS-VAGINAL NON-OB; Future; Expected date: 07/23/2023 Screening for diabetes mellitus - BASIC METABOLIC PANEL; Future; Expected date: 07/23/2023 Arabella Noland DO * Barb Garg LPN - 07/23/2023 12:09 PM EST PRE - ADMINISTRATION DOCUMENTATION Are you experiencing any cold symptoms or fever? No Have you had Guillain-Eastsound Syndrome (an illness that causes paralysis) within the last 6 weeks? No Have you had the flu shot in the past? YES Have you ever had a reaction to the flu shot? No Barb Garg LPN, 07/23/2023 12:09 PM Immunization Administration Documentation Time Out Procedure Performed: Yes Patient Identified (Ask Name/Date of ): Yes Does the patient have a fever greater than 101 degrees today? No Patient allergic to latex? No VFC Stock: No Immunization(s) verified: Yes, Immunization Name: Flu, VIS Sheet(s) given: Yes Verified Side and Site: Yes Verified Shot(s) with Parent(s)/Patient: Yes documented in this encounter Nursing Notes * Barb Garg LPN - 07/23/2023 12:04 PM EST Chief Complaint Patient presents with Physical-Exam Yearly documented in this encounter Plan of Treatment Upcoming Encounters Date Type Department Care Team (Late st Contact Info) Description 07/26/2023 1:00 PM EST Imaging [facility] [address] [facility] [address] 10/22/2023 12:00 PM EDT Office Visit Gynecology/Obstetrics [address] [place] [address] Ana Chacko CRNP [address] [place] [address] 11/08/2023 10:00 AM EDT Office Visit Neurology [address] [place] [address] [address] Chester MD [address] [facility] [address] Scheduled Orders Name Type Priority Associated Diagnoses Orde r Schedule US PELVIS TRANS-VAGINAL NON-OB Medical Imaging Routine Menorrhagia with regular cycle Expected: 07/23/2023, Expires: 08/20/2024 Health Maintenance Due Date Last Done Comments [...] as of this encounter Visit Diagnoses Diagnosis Routine medical exam- Primary Routine general medical examination at a health care facility Need for prophylactic vaccination and inoculation against influenza Seizure disorder (HCC) Unspecified epilepsy without mention of intractable epilepsy Medical marijuana use Encounter for long-term (current) use of other medications Nausea and vomiting, unspecified vomiting type Menorrhagia with regular cycle Excessive or frequent menstruation Screening for diabetes mellitus documented in this encounter Care Teams Ribbon Cutter Relationship Specialty Start Date End Date Arabella Noland DO [address] [place] [address] PCP - General Family Medicine 11/16/14 documented as of this encounter
--- OUTSIDE RECORDS SUMMARY | 2023-08-19 12:34 | External Medical Summary | Summary of Care ---
Author Name Unknown Organization [facility] Address [address] [facility] [place] [address] Phone [phone] Care Team Providers Care Pai Gow Dealer Name Role Phone Arabella Noland DO Primary Care Provider Reason for Visit * Reason Onset Date Comments Test Results Lab 08/13/2023 Encounter Details Date Type Department Care Team (Late st Contact Info) Description 08/13/2023 Telephone Gastroenterology, [facility] [address] [place] [address] Kathryn Huntley CRNP [address] [place] [address] Test Results Lab Allergies Active Allergy Reactions [...] mRNA, LNP-s, No Pre serve, 2-Dose Series ([employer]) 11/03/2020,10/13/2020 Seasonal Influenza, PF, 6 M & [...] encounter Miscellaneous Notes * Telephone Encounter - Celine Ibanez LPN - 08/14/2023 3:55 PM EST Pt aware of results, no new questions or concerns, sent to scheduling to set up US * Telephone Encounter - Kendra Gant RN [...] normal range but stable Other e-lytes looked okANTOINETTE Phillips 08/13/2023 1:01 PM documented in this encounter Plan of Treatment Upcoming Encounters Date Type Department Care Team (Late st Contact Info) Description 08/17/2023 8:15 AM EST Imaging [facility] 2nd Floor Cardiology, [address] [place] [address] 08/17/2023 9:45 AM EST Imaging [facility] 2nd Floor Cardiology, [address] [place] [address] 08/17/2023 10:45 AM EST Imaging [facility] 2nd Floor Cardiology, [address] [place] [address] 08/17/2023 12:45 PM EST Imaging [facility] 2nd Floor Cardiology, [address] [place] [address] 08/31/2023 3:45 PM EDT Office Visit Gynecology/Obstetrics [address] [place] [address] Lena Lr MD [address] [facility] [place] [address] 10/22/2023 12:00 PM EDT Office Visit Gynecology/Obstetrics [address] [place] [address] Ana Chacko CRNP 132 [facility] [place] [address] 11/08/2023 10:00 AM EDT Office Visit Neurology [address] [place] [address] dL Chester MD [facility] [address] Scheduled Orders Name Type Priority Associated [...] structures documented in this encounter Care Teams Pai Gow Dealer Relationship Specialty Start Date End Date Arabella Noladn DO [address] [place] [address] PCP - General Family Medicine 11/16/14 documented as of this encounter
--- OUTSIDE RECORDS SUMMARY | 2023-08-19 12:34 | External Medical Summary ---
Author Name Unknown Address Unknown Organization K01:[facility] [place] [address] [place] [address] Laboratory Report Ordering Provider Test Date Status GIANFRANCO BUSH 07/23/2023 13:11:52 Final Observation Date Value Abnormality Reference (Units ) Status MYCODE SPECIMEN-SST 07/23/2023 13:11:52 Freezing of extracted DNA, whole blood and/or serum. Final Performing Location LABORATORY C - [address] [place] [address]
--- OUTSIDE RECORDS SUMMARY | 2023-08-19 12:34 | External Medical Summary | Summary of Care ---
Author Name Unknown Organization [facility] Address [address] [place] [address] Phone [phone] Care Team Providers Care Well Shooter Name Role Phone Haydenrikajuan pablo Arabellazully Dumont DO Primary Care Provider Reason for Visit * Reason Onset Date Comments Medication Refill 08/18/2023 Encounter Details Date Type Department Care Team (Late st Contact Info) Description 08/18/2023 Refill Neurology [facility] [address] [place] [address] Ld Chester MD [address] [place] [address] Idiopathic torsion dystonia Allergies Active Allergy Reactions Criticality Noted Date Comments Sulfamethoxazole-Trimethopr im Diarrhea High 11/16/2014 Sulfamethoxazole-Trimethopr im Diarrhea 05/24/2018 Nausea, vomiting and diarrhea, abdominal pain Prednisone 09/27/2015 Does not gagandeep when on dilantin documented as of this encounter (statuses as of 08/19/2023) Medications Medication Sig Dispensed Refills Start Date [...] as of this encounter (statuses as of 08/19/2023) Active Problems Problem Noted Date Diagnosed Date 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 Medical marijuana use 03/15/2018 Overview: Since 11/02--vaporiser pen Diarrhea 01/09/2018 Chronic low back pain 10/05/2015 Seizure disorder 10/05/2015 Anxiety state 10/05/2015 Dilantin toxicity 10/05/2015 Myoclonus 07/28/2005 Overview: possible documented as of this encounter (statuses as of 08/19/2023) Resolved Problems Problem Noted Date Diagnosed Date [...] as of this encounter (statuses as of 08/19/2023) Immunizations Name Administration Dates Next Due COVID-19 mRNA, LNP-s, No Pre serve, 2-Dose Series ([employer]) 11/03/2020,10/13/2020 Seasonal Influenza, PF, 6 M & [...] encounter Miscellaneous Notes * Telephone Encounter - Raúl Farrell - 08/19/2023 4:19 AM ESTRefused Prescriptions: Disp Refills clonazePAM 1 MG Oral Tablet (KlonoPIN) 120 Ta*2 Sig: Take 1 Tablet by mouth in the morning and 1 Tablet at noon and 1 Tablet in the evening and 1 Tablet before bedtime.Refused By: RAÚL FARRELLReason for Refusal: Duplicate Request documented in this encounter Plan of Treatment Upcoming Encounters Date Type Department Care Team (Late st Contact Info) Description 08/31/2023 3:45 PM EDT Office Visit Gynecology/Obstetrics [address] [place] [address] Lena Lr MD [address] [facility] [place] [address] 09/13/2023 9:15 AM EDT Imaging [facility] 2nd Floor Cardiology, [address] [place] [address] 09/13/2023 10:45 AM EDT Imaging [facility] 2nd Floor Cardiology, [address] [address] 09/13/2023 11:45 AM EDT Imaging [facility] 2nd Floor Cardiology, [address] [place] [address] 09/13/2023 1:45 PM EDT Imaging [facility] 2nd Floor Cardiology, [address] [place] [address] 10/22/2023 12:00 PM EDT Office Visit Gynecology/Obstetrics [address] [place] [address] Ana Chacko CRNP 132 [facility] [place] [address] 11/08/2023 10:00 AM EDT Office Visit Neurology [facility] [place] [address] [address] Chester MD [address] [place], [place] [address] 02/12/2024 9:00 AM EDT Imaging Radiology [facility] 132 [facility] [place] [address] Health Maintenance Due Date Last Done Comments [...] 1988, Additional history exists COVID-19 Vaccine ( season) 2023 11/03/2020, 10/13/2020 Diabetes Screening 08/13/2026 [...] as of this encounter Visit Diagnoses Diagnosis Idiopathic torsion dystonia Genetic torsion dystonia documented in this encounter Care Teams Well Shooter Relationship Specialty Start Date End Date Arabella Noland DO [address] [place] [facility] [address] PCP - General Family Medicine 11/16/14 documented as of this encounter
--- OUTSIDE RECORDS SUMMARY | 2023-08-19 12:34 | External Medical Summary ---
Author Name Unknown Address Unknown Organization K01:LABORATORY [facility] [place] - [address] [facility] [place] [address] Laboratory Report Ordering Provider Test Date Status SCOTT DÍAZ 07/23/2023 13:11:52 Final Observation Date Value Abnormality Reference (Units ) Status SYNC LEUKOCYTES IN BLOOD BY AUTOMATED COUNT 07/23/2023 13:11:52 4.52 4.00-10.80 (K/uL) Final Segs 07/23/2023 13:11:52 55.5 40.0-75.0 (%) Final Lymphs % 07/23/2023 13:11:52 35.6 18.0-42.0 (%) Final Monos 07/23/2023 13:11:52 7.3 1.0-11.0 (%) Final Eosinophils 07/23/2023 13:11:52 0.2 0.0-6.0 (%) Final Basos 07/23/2023 13:11:52 0.7 0.0-2.0 (%) Final Immature Granulocyte, Percent 07/23/2023 13:11:52 0.7 0.0-2.0 (%) Final Absolute Segs 07/23/2023 13:11:52 2.51 1.80-7.70 (K/uL) Final Lymphs, absolute 07/23/2023 13:11:52 1.61 1.00-4.80 (K/ul) Final Monos, Abs 07/23/2023 13:11:52 0.33 0.00-1.10 (K/uL) Final Eos, Abs 07/23/2023 13:11:52 0.01 0.00-0.70 (K/uL) Final Basos, Abs 07/23/2023 13:11:52 0.03 0.00-0.20 (K/uL) Final Immature Granulocytes, Number 07/23/2023 13:11:52 0.03 0.00-0.20 (K/uL) Final Performing Location [facility]ORY [facility] [place] - [address] [facility] [address]
--- OUTSIDE RECORDS SUMMARY | 2023-08-19 12:34 | External Medical Summary | Summary of Care ---
Author Name Unknown Organization [facility] Address [address] [place] [address] Phone [phone] Care Team Providers Care Strategy Analyst Name Role Phone Arabella Noland DO Primary Care Provider [phone] Reason for Referral * Precert (Within 10 days (routine)) - Pending Review Specialty Diagnoses / Procedures Referred By Cleve galarza Referred To Contact Radiology Diagnoses Nausea and vomiting, unspecified vomiting type Procedures NM GASTRIC EMPTYING STUDY SOLID Kathryn Huntley CRNP [address] [place] [address] Referral ID Status Reason Start Date Expiration Date V isits Requested Visits Authorized [id number] Pending Review 08/13/2023 999 999 Reason for Visit * Reason Comments NEW PATIENT Constipation, abd pa in, cyclic vomiting syndrome * Evaluate & Treat - Unlimited Visits (Within 10 days (routine)) - Authorized Specialty Diagnoses / Procedures Referred By Cleve galarza Referred To Contact Gastroenterology Diagnoses Slow transit constipation Arabella Noland DO [address] [place] [address] Referral ID Status Reason Start Date Expiration Date Visits Requested Visits Authorized [id number] Authorized Specialty Services Required 08/06/2023 999 999 Encounter Details Date Type Department Care Team (Late st Contact Info) Description 08/13/2023 11:00 AM EST Office Visit Gastroenterology, [facility] [address] [place] [address] Kathryn Huntley CRNP [address] [place] [address] Constipation, unspecified constipation type*; Nausea and vomiting, unspecified vomiting type Allergies Active Allergy Reactions Criticality Noted [...] 5 11/02/2021 Active Senna 8.6 MG Oral TabletIndications :Constipation, unspecified constipation type TAKE 1 TAB BY MOUTH 2 TIMES A DAY. 60 Tablet 3 11/02/2021 Active Ipratropium-Albut roddy 0.5-2.5 (3) MG/3ML Inhalation Solution (Duoneb) Inhale 3 mL via nebulizer every 6 hours as needed for Shortness of Breath. 360 mL 3 09/25/2022 Active Additional Information Patient not taking.Reported on 08/13/2023 carBAMazepine 100 MG Oral Tablet Chewable (Tegretol)Indicat ions:Generalized convulsive epilepsy without intractable epilepsy (HCC) Chew 1 & 1/2 tablets by mouth twice daily with the 300 mg tabs 90 Tablet 5 05/24/2023 Active clonazePAM 1 MG Oral Tablet (KlonoPIN)Indicat [...] AT BEDTIME 360 Capsule 1 08/07/2023 Active Benzonatate 100 MG Oral CapsuleIndication s:Viral URI with cough Take 1 Capsule by mouth 3 times a day as needed for Cough. 30 Capsule 1 09/23/2022 Discontinue d(Patient preference/ discontinua tion) documented as of this encounter (statuses as [...] Sign Reading Time Taken Comments Blood Pressure 108/67 08/13/2023 11:02 AM EST Pulse 89 08/13/2023 11:02 AM EST Temperature 36.7 C (98.1 F) 08/13/2023 11:[address] Respiratory Rate - - Oxygen Saturation 97% 08/13/2023 11:02 AM EST Inhaled Oxygen Concentration - - Weight 89.1 kg (196 lb 6.4 oz) 08/13/2023 11:02 AM EST Height - - Body Mass Index 31.22 07/23/2023 12:10 PM EST documented in this [...] as of this encounter Progress Notes * Kathryn Huntley CRNP - 08/13/2023 11:00 AM EST DATE OF SERVICE: 08/13/2023 REFERRING PHYSICIAN: Arabella Noland DO CC: constipation Office Visit 08/13/2023 : 33 year old female with history of depression, portal vein thrombosis on coumadin, epilepsy, PID and others below referred for eval of constipation, request of Dr. Noland. Notes chronic abd pain. Chronic nausea, vomiting. Wakes up feeling nauseated. Emesis is food/bile. Seems worse after days of constipation. She uses senna 2 tablets twice daily. With this bowels move every 3/4 days. No black or bloody stools. No fever, chills, CP, SOB. . Has tried stopping marijuana in the past. Has not helped the emesis, pain Current GI medications: Senna Medications tried: Linzess (not covered in past), senna, Miralax, GES 2020: ordered, not completed CTAP 2020: no acute findings EGD 2019: - White nummular lesions in esophageal mucosa. Cells for cytology obtained. - Normal stomach. Biopsied. - Normal examined duodenum. Biopsied. Colonoscopy 2019: The examined terminal ileum appeared normal. The background colonic mucosal appeared normal. Random biopsies were taken from the descending colon with a cold forceps for histology. Verification of patient identification for the specimen was done by the physician and nurse using the patient's name and medical record number. Internal hemorrhoids were found during retroflexion. Family history of GI malignancy: sister with UC and colon CA Past Medical History: Diagnosis Date Benign neoplasm of pituitary gland (HCC) Depression treated as a child and no medication since age 16; Epilepsy (HCC) Dx age 13; currently taking klonopin, tegretol, and keppra; followed by Dr Eldridge, neuro in [facility] he is aware of her Female pelvic inflammatory disease Genital herpes, unspecified uncertain of last outbreak Premature Donya was born 2 months premature Family History Problem Relation Age of Onset Hyperlipidemia Mother Depression Mother Heart Disorder Father Hypertension Father Hyperlipidemia Father Colon cancer Sister Gastro-intestinal disorder Sister UC Asthma Brother Arthritis Grandmother (Maternal) Past Surgical History: Procedure Laterality Date COLONOSCOPY, DIAGNOSTIC (RECTUM) 09/02/2018 normal bx/COLONOSCOPY FLEXIBLE PROXIMAL DIAGNOSTIC performed by Yamilet Lovett MD at ENDOSCOPY [facility] DENTAL SURGERY PROCEDURE NEC EGD, FLEXIBLE, DIAGNOSTIC 09/06/2018 normal bx / INPT [facility] LIGATE/CUT OVIDUCT(S) 02/2014 [facility] TREATMENT OF INCOMPLETE D&E Social History Tobacco Use Smoking status: Former Current packs/day: 0.00 Types: Cigarettes Quit date: 02/16/2010 Years since quittin.4 Passive exposure: Past Smokeless tobacco: Never Tobacco comments: Quit in 05/17/15. Vaping Use Vaping Use: Every day Substances: THC, CBD, Flavoring Devices: Disposable, Pre-filled or refillable cartridge Substance Use Topics Alcohol use: No Drug use: Yes Frequency: 7.0 times per week Types: Marijuana Comment: medical marijuana card Review of patient's allergies indicates: Allergen Reactions Bactrim [Sulfamethoxazole-Trimethoprim] Diarrhea Bactrim [Sulfamethoxazole-Trimethoprim] Diarrhea Nausea, vomiting and diarrhea, abdominal pain Prednisone Does not gagandeep when on dilantin Current Outpatient Medications Medication Sig Dispense Refill Albuterol Sulfate HFA 108 (90 Base) MCG/ACT Inhalation Aerosol Solution Inhale by mouth 2 Puffs every 4 hours as needed for Wheezing. 18 g 5 Senna 8.6 MG Oral Tablet TAKE 1 TAB BY MOUTH 2 TIMES A DAY. 60 Tablet 3 carBAMazepine 100 MG Oral Tablet Chewable (Tegretol) [...] 1 Capsule by mouth in the morning. Ondansetron HCl 4 MG Oral Tablet (Zofran) TAKE 1 TABLET BY MOUTH EVERY 6 HOURS NEEDED FOR OERNKS96 Tablet 1 carBAMazepine ER 300 MG Oral Capsule Extended Release 12 Hour (Carbatrol) TAKE 2 CAPSULES BY MOUTH IN THE MORNING AND 2 AT BEDTIME 360 Capsule 1 Ipratropium-Albuterol 0.5-2.5 (3) MG/3ML Inhalation Solution (Duoneb) Inhale 3 mL via nebulizer every 6 hours as needed for Shortness of Breath. (Patient not taking: Reported on 08/13/2023) 360 mL 3 No current facility-administered medications for this visit. REVIEW OF SYSTEMS: All other findings negative except as noted in HPI. EXAM: BP 108/67 | Pulse 89 | Temp 36.7 C (98.1 F) | Wt 89.1 kg (196 lb 6.4 oz) | SpO2 97% | BMI 31.22kg/m | BSA 2.04 m GENERAL: Well developed and well nourished in no acute distress. SKIN: No rashes, ulcers, jaundice or spider angiomata. HEENT: Normocephalic, sclera clear, NECK: Supple, LUNGS: Clear to auscultation bilaterally, no respiratory distress or accessory muscles used. HEART: Regular rate & rhythm, no murmurs and no gallops. ABDOMEN: Normal bowel sounds, soft and nontender, no masses or hepatosplenomegaly. EXTREMITIES: No palmar erythema, no ankle edema, no skin discoloration, no clubbing, no cyanosis. NEURO: No lateralizing findings. Sensory/Motor grossly normal. DIAGNOSTIC TEST: Tsh with free t4 if indicated Basic metabolic panel Xr abdomen 1 view GES ABD US ASSESSMENT AND PLAN: 33 year old female with history of abd pain, nausea/vomiting and constipation using high dose senna BID - Labs - ABD US - KUB today - Plan for gastric emptying scan - Medications reviewed, cautious use of Zofran - Miralax 1 capful twice daily - May use Dulcolax PRN - Marijuana cessation recommend - ED for emergencies - Please call with any questions or concerns RETURN TO CLINIC: 6 months I spent a total of 45 minutes on the date of service in review of patient's record, and previously obtained information in person and appropriate medical visit, discussion and education of plan, withpatient and/or caregiver, placing orders for tests/referral/procedures as medically necessary and documentation of pertinent clinical information in patient's medical records for their visit today. ANTOINETTE You 08/13/2023 1:46 PM documented in this encounter Nursing Notes * Celine Ibanez LPN - 08/13/2023 11:03 AM EST Patient identified by name and date of . Chief Complaint Patient presents with NEW PATIENT Constipation, abd pain, cyclic vomiting syndrome Pt has a BM with the senna approx every 3 days. Pt stating that nothing is consistent for her BM's.Pt abd pain RUQ all the time and than angela upper quadrants that moves from the upper to the lower abdomen, Pt complaining of " burning" right behind her umbilicus. Pt denies ever having an ulcer. Pt stating that after eating her pain gets worse. Pt stating that the vomiting comes normally the week after her period or the same week of her period. documented in this encounter Plan of Treatment Upcoming Encounters Date Type Department Care Team (Late st Contact Info) Description 08/13/2023 2:15 PM EST Imaging Radiology [address] 132 [facility] [place] [address] Nausea and vomiting, unspecified vomiting type 08/17/2023 8:15 AM EST Imaging [facility] 2nd Floor Cardiology, [place] 132 [facility] [place] [address] 08/17/2023 9:45 AM EST Imaging [facility] 2nd Floor Cardiology, [place] 132 [place] [address] 08/17/2023 10:45 AM EST Imaging [facility] 2nd Floor Cardiology, [address] [place] [address] 08/17/2023 12:45 PM EST Imaging [facility] 2nd Floor Cardiology, [address], [place] [address] 08/31/2023 3:45 PM EDT Office Visit Gynecology/Obstetric s [address] [place] [address] Lena Lr MD [address] [place] [address] 10/22/2023 12:00 PM EDT Office Visit Gynecology/Obstetric s [address] [place] [address] Ana Chacko CRNP 132 [facility], [place] [address] 11/08/2023 10:00 AM EDT Office Visit Neurology [facility] 200 [facility] [address] [address] Chester MD [address] [place] [phone] Pending Results Name Type Priority Associated Diagnoses Date /Time TSH WITH FREE T4 IF INDICATED Lab Routine Constipation, unspecified constipation type 08/13/2023 11:40 AM EST XR ABDOMEN 1 VIEW Medical Imaging Routine Constipation, unspecified constipation type 08/13/2023 11:58 AM EST Scheduled Orders Name Type Priority Associated Diagnoses Orde r Schedule TSH WITH FREE T4 IF INDICATED Lab Routine Constipation, unspecified constipation type Expected: 08/13/2023, Expires: 08/13/2024 NM GASTRIC EMPTYING STUDY SOLID Medical Imaging Routine Nausea and vomiting, unspecified vomiting type Expected: 08/13/2023, Expires: 09/10/2024 US ABDOMEN LIMITED Medical Imaging Routine Nausea and vomiting, unspecified vomiting type Expected: 08/13/2023, Expires: 09/10/2024 Health Maintenance Due Date Last Done Comments [...] Not on filedocumented as of this encounter Results * (ABNORMAL) BASIC METABOLIC PANEL (08/13/2023 11:40 AM EST) BUN 9 6 - 20 mg/dL 08/13/2023 12:50 PM EST [facility] [place] [facility]-10 Creatinine 0.8 0.5 - 1.0 mg/dL 08/13/2023 12:50 PM EST [facility] [place] [facility]10 Estimated Glomerular Filtration Rate >90 >=60 mL/min 08/13/2023 12:50 PM EST [facility] [place] 57-10 Comment:eGFR is calculated b ased on the CKD-EPI 2020 equation Sodium 134(L) 135 - 146 mmol/L 08/13/2023 12:50 PM EST [facility] [place] [facility]10 Potassium 4.5 3.5 - 5.1 mmol/L 08/13/2023 12:50 PM EST [facility] [place] [facility]10 Chloride 97(L) 98 - 107 mmol/L 08/13/2023 12:50 PM EST [facility] [place] [facility]10 CO2 25 22 - 32 mmol/L 08/13/2023 12:50 PM EST [facility] [place] [facility]10 Anion Gap 12 7 - 15 mmol/L 08/13/2023 12:50 PM EST [facility] [place] [facility]10 Glucose 82 70 - 120 mg/dL 08/13/2023 12:50 PM EST [facility] [place] [facility]10 Calcium 9.2 8.4 - 10.2 mg/dL 08/13/2023 12:50 PM EST [facility] [place] [facility]10 Blood Venous blood specimen / Unknown Venipuncture / Unknown 08/13/2023 11:40 AM EST 08/13/2023 11:40 AM EST Kathryn CURRY LAB BLOO D ORDERABLES [facility] [address] documented in this encounter Visit Diagnoses Diagnosis Constipation, unspecified constipation type- Primary Nausea and vomiting, unspecified vomiting type Nausea and vomiting, unspecified vomiting type documented in this encounter Care Teams Strategy Analyst Relationship Specialty Start Date End Date Arabella Noland DO [address] [facility] [address] PCP - General Family Medicine 11/16/14 documented as of this encounter
--- OUTSIDE RECORDS SUMMARY | 2023-08-19 12:34 | External Medical Summary | Summary of Care ---
Author Name Unknown Organization [facility] Address [address] [place] [address] Phone [phone] Care Team Providers Care Oyster Picker Name Role Phone Arabella Noland DO Primary Care Provider Reason for Visit * Reason Onset Date Comments Med Request 07/11/2023 Encounter Details Date Type Department Care Team (Late st Contact Info) Description 07/11/2023 Telephone Neurology, [place] [address] [place] [address] Services, [facility] [address] [place] [address] Med Request Allergies Active Allergy Reactions Criticality [...] mRNA, LNP-s, No Pre serve, 2-Dose Series (Keniu) 11/03/2020,10/13/2020 Seasonal Influenza, PF, 6 M & [...] phone number for nurse to call back: [phone] Please make sure you verify pharmacy for anything medication related. Form to be used for established patients only (not new patients) documented in this encounter Plan of Treatment Upcoming Encounters Date Type Department Care Team (Late st Contact Info) Description 07/23/2023 11:50 AM EST Office Visit [facility] [address] [facility] [address] Arabella Noland DO [address] [place] [address] 10/22/2023 12:00 PM EDT Office Visit Gynecology/Obstetrics [address] [place] [address] Ana Chacko CRNP [address] [place] [address] 11/08/2023 10:00 AM EDT Office Visit Neurology [facility] 200 [facility] [address] [address] Chester MD [address] [place] [address] Health Maintenance Due Date Last [...] unspecified documented in this encounter Care Teams Oyster Picker Relationship Specialty Start Date End Date Arabella Noland DO [address] [place], [place] [phone] PCP - General Family Medicine 11/16/14 documented as of this encounter
--- OUTSIDE RECORDS SUMMARY | 2023-08-19 12:34 | External Medical Summary | Summary of Care ---
Author Name Unknown Organization [facility] Address [address] [facility] [place] [address] Phone [phone] Care Team Providers Care Heat Treat Technician Name Role Phone Arabella Noland DO Primary Care Provider Reason for Visit * Reason Onset Date Comments Test Results Lab 08/13/2023 Encounter Details Date Type Department Care Team (Late st Contact Info) Description 08/13/2023 Telephone Gastroenterology, [facility] [address] [place] [address] Kathryn Huntley CRNP [address] [place] [address] Test Results Lab Allergies Active Allergy Reactions [...] mRNA, LNP-s, No Pre serve, 2-Dose Series (Accountable) 11/03/2020,10/13/2020 Seasonal Influenza, PF, 6 M & [...] cristy us also returned Needs recall cristy mauricio in 6 months to follow up on [...] Info) Description 08/17/2023 8:15 AM EST Imaging [facility] 2nd Floor Cardiology, [address] [place] [address] 08/17/2023 9:45 AM EST Imaging [facility] 2nd Floor Cardiology, [address] [place] [address] 08/17/2023 10:45 AM EST Imaging [facility] 2nd Floor Cardiology, [address] [address] 08/17/2023 12:45 PM EST Imaging [facility] 2nd Floor Cardiology, [address] [place] [address] 08/31/2023 3:45 PM EDT Office Visit Gynecology/Obstetrics [address] [address] Lena Lr MD [address] [place] [address] [place] [address] 10/22/2023 12:00 PM EDT Office Visit Gynecology/Obstetrics [address] [place] [address] Ana Chacko CRNP 132 [facility] [address] 11/08/2023 10:00 AM EDT Office Visit Neurology [facility] 200 [facility] [place] [address] L[address] Chester MD [address] [place] [address] Scheduled Orders Name Type Priority Associated [...] structures documented in this encounter Care Teams Heat Treat Technician Relationship Specialty Start Date End Date Arabella Noland DO [address] [place] [address] PCP - General Family Medicine 11/16/14 documented as of this encounter
--- OUTSIDE RECORDS SUMMARY | 2023-08-19 12:34 | External Medical Summary ---
Author Name Unknown Address Unknown Organization K01:LAB[facility]ATORY [facility] - [facility] [address] [facility] [place] [address] Laboratory Report Ordering Provider Test Date Status SCOTT DÍAZ 07/23/2023 13:11:52 Final Observation Date Value Abnormality Reference (Units ) Status WBC, Total 07/23/2023 13:11:52 4.52 4.00-10.80 (K/uL) Final RBC 07/23/2023 13:11:52 4.60 3.85-5.15 (M/uL) Final Hemoglobin 07/23/2023 13:11:52 13.9 12.0-15.3 (g/dL) Final HCT 07/23/2023 13:11:52 43.1 36.0-45.2 (%) Final MCV 07/23/2023 13:11:52 93.7 81.5-97.5 (fL) Final MCH 07/23/2023 13:11:52 30.2 27.0-34.0 (pg) Final MCHC 07/23/2023 13:11:52 32.3 32.0-36.0 (g/dL) Final RDW 07/23/2023 13:11:52 12.5 11.5-15.5 (%) Final Platelets 07/23/2023 13:11:52 375 140-400 (K/uL) Final MPV 07/23/2023 13:11:52 9.4 6.6-11.1 (fL) Final Nucleated erythrocytes/100 leukocytes [Ratio] in Blood by Automated count 07/23/2023 13:11:52 0 <=0 (/100 WBCs) Final Performing Location [facility] - [address] [facility] [place] [address]
--- OUTSIDE RECORDS SUMMARY | 2023-08-19 12:35 | External Medical Summary | Summary of Care ---
Author Name Unknown Organization [facility] Address [address] [place] [address] Phone [phone] Care Team Providers Care Medical Imaging Technologist Name Role Phone Arabella Noland DO Primary Care Provider [phone] Encounter Details Date Type Department Care Team (Late st Contact Info) Description 06/12/2023 Orders Only Outcomes Research Department [address] [place] [address] Deja Borrego CHRA MyCGraine de Cadeaux Research Other*[id number] Allergies Active Allergy Reactions Criticality Noted Date Comments Sulfamethoxazole-Trimethopr im Diarrhea High 11/16/2014 Sulfamethoxazole-Trimethopr im Diarrhea 05/24/2018 Nausea, vomiting and diarrhea, abdominal pain Prednisone 09/27/2015 Does not gagandeep when on dilantin documented as of this encounter (statuses as of 06/12/2023) Medications Medication Sig Dispensed Refills Start Date [...] HFA 108 (90 Base) MCG/ACT Inhalation Aerosol SolutionIndications:C omplicated bronchitis Inhale by mouth 2 Puffs every 4 hours as needed for Wheezing. 18 g 5 11/02/2021 Active Ondansetron HCl 4 MG Oral Tablet (Zofran)Indications:N ausea and vomiting, intractability of vomiting not specified, unspecified vomiting type TAKE 1 TABLET BY MOUTH EVERY 6 HOURS NEEDED FOR NAUSEA 30 Tablet 0 11/02/2021 Active Senna 8.6 MG Oral TabletIndications:Con stipation, unspecified constipation type TAKE 1 TAB BY MOUTH 2 TIMES A DAY. 60 Tablet 3 11/02/2021 Active Phenytoin Sodium Extended 100 MG Oral Capsule (Dilantin)Indications :Anxiety state TAKE 2 CAPSULES BY MOUTH IN THE MORNING AND 2 IN THE EVENING 120 Capsule 5 08/07/2022 Active Benzonatate 100 MG Oral CapsuleIndications:Vi ral URI with cough Take 1 Capsule by mouth 3 times a day as needed for Cough. 30 Capsule 1 09/23/2022 Active Ipratropium-Albuterol 0.5-2.5 (3) MG/3ML Inhalation Solution (Duoneb) Inhale 3 mL via nebulizer every 6 hours as needed for Shortness of Breath. 360 mL 3 09/25/2022 Active carBAMazepine ER 300 MG Oral Capsule Extended Release 12 Hour (Carbatrol)Indication s:Seizure disorder (HCC) TAKE 2 CAPSULES BY MOUTH IN THE MORNING AND 2 AT BEDTIME 360 Capsule 1 02/06/2023 Active carBAMazepine 100 MG Oral Tablet Chewable (Tegretol)Indications :Generalized convulsive epilepsy without intractable epilepsy (HCC) Chew 1 & 1/2 tablets by mouth twice daily with the 300 mg tabs 90 Tablet 5 05/24/2023 Active clonazePAM 1 MG Oral Tablet (KlonoPIN)Indications :Idiopathic torsion dystonia Take 1 Tablet by mouth in the morning and 1 Tablet at noon and 1 Tablet in the evening and 1 Tablet before bedtime. 120 Tablet 2 05/28/2023 Active documented as of this encounter (statuses as of 06/12/2023) Active Problems Problem Noted Date Diagnosed Date 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 Medical marijuana use 03/15/2018 Overview: Since 11/02--vaporiser pen Diarrhea 01/09/2018 Chronic low back pain 10/05/2015 Seizure disorder 10/05/2015 Anxiety state 10/05/2015 Dilantin toxicity 10/05/2015 Myoclonus 07/28/2005 Overview: possible documented as of this encounter (statuses as of 06/12/2023) Resolved Problems Problem Noted Date Diagnosed Date [...] as of this encounter (statuses as of 06/12/2023) Immunizations Name Administration Dates Next Due COVID-19 mRNA, LNP-s, No Pre serve, 2-Dose Series ([employer]) 11/03/2020,10/13/2020 Seasonal Influenza, PF, 6 M & [...] Description 07/23/2023 11:50 AM EST Office Visit [facility] [address] [place] [address] Arabella Noland, [address] [place] [address] 10/22/2023 12:00 PM EDT Office Visit Gynecology/Obstetrics [address] [place] [address] Ana Chacko CRNP [address] [place] [address] 11/08/2023 10:00 AM EDT Office Visit Neurology Kathleen Puente [place] [address] [facility] [place] [address] [address] [place] MD [address] [place] [address] Scheduled Orders Name Type Priority Associated Diagnoses Orde r Schedule MYCODE SUBSEQUENT ADULT Lab Routine [facility] Other*[id number] Every 6 Months for 2 Occurrences starting 06/12/2023 until 07/01/2024 Health Maintenance Due Date Last Done Comments [...] as of this encounter Visit Diagnoses Diagnosis [facility] Other*[id number] documented in this encounter Care Teams Medical Imaging Technologist Relationship Specialty Start Date End Date Arabella Noland DO [address] [facility] [place] [address] PCP - General Family Medicine 11/16/14 documented as of this encounter
--- OUTSIDE RECORDS SUMMARY | 2023-08-19 12:35 | External Medical Summary | Summary of Care ---
Author Name Unknown Organization [facility] Address [address] [place] [place] [address] Phone [phone] Care Team Providers Care Industrial Psychology Teacher Name Role Phone Arabella Noland DO Primary Care Provider Reason for Visit * Reason Onset Date Comments Medication Refill 05/24/2023 Encounter Details Date Type Department Care Team (Late st Contact Info) Description 05/24/2023 Refill Neurology [facility] [place] [address] [place] [address] Melissa Maciel PA-C [address] [facility] [place] [address] GENERALIZED CONVULSIVE EPILEPSY; WITHOUT MENTION OF INTRACTABLE EPILEPSY Allergies Active Allergy Reactions Criticality Noted Date Comments Sulfamethoxazole-Trimethopr im Diarrhea High 11/16/2014 Sulfamethoxazole-Trimethopr im Diarrhea 05/24/2018 Nausea, vomiting and diarrhea, abdominal pain Prednisone 09/27/2015 Does not gagandeep when on dilantin documented as of this encounter (statuses as of 05/24/2023) Medications Medication Sig Dispensed Refills Start Date [...] 0 11/02/2021 Active Senna 8.6 MG Oral TabletIndications:C onstipation, unspecified constipation type TAKE 1 TAB BY MOUTH 2 TIMES A DAY. 60 Tablet 3 11/02/2021 Active Phenytoin Sodium Extended 100 MG Oral Capsule (Dilantin)Indicatio ns:Anxiety state TAKE 2 CAPSULES BY MOUTH IN THE MORNING AND 2 IN THE EVENING 120 Capsule 5 08/07/2022 Active Benzonatate 100 MG Oral CapsuleIndications: Viral URI with cough Take 1 Capsule by mouth 3 times a day as needed for Cough. 30 Capsule 1 09/23/2022 Active Ipratropium-Albuter ol 0.5-2.5 (3) MG/3ML Inhalation Solution (Duoneb) Inhale 3 mL via nebulizer every 6 hours as needed for Shortness of Breath. 360 mL 3 09/25/2022 Active carBAMazepine ER 300 MG Oral Capsule Extended Release 12 Hour (Carbatrol)Indicati ons:Seizure disorder (HCC) TAKE 2 CAPSULES BY MOUTH IN THE MORNING AND 2 AT BEDTIME 360 Capsule 1 02/06/2023 Active clonazePAM 1 MG Oral Tablet (KlonoPIN)Indicatio ns:Idiopathic torsion dystonia Take 1 Tablet by mouth in the morning and 1 Tablet at noon and 1 Tablet before bedtime. 90 Tablet 5 05/07/2023 Active carBAMazepine 100 MG Oral Tablet Chewable (Tegretol)Indicatio ns:Generalized convulsive epilepsy without intractable epilepsy (HCC) Take (chew) 1 & 1/2 tablets by mouth twice daily with the 300 mg tabs 90 Tablet 5 05/24/2023 Active carBAMazepine 100 MG Oral Tablet Chewable (Tegretol)Indicatio ns:Generalized convulsive epilepsy without intractable epilepsy (HCC) Take (chew) 1 & 1/2 tablets by mouth twice daily with the 300 mg tabs 90 Tablet 5 01/03/2023 3 Discontinue d(Refill) documented as of this encounter (statuses as of 05/24/2023) Active Problems Problem Noted Date Diagnosed Date 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 Medical marijuana use 03/15/2018 Overview: Since 11/02--vaporiser pen Diarrhea 01/09/2018 Chronic low back pain 10/05/2015 Seizure disorder 10/05/2015 Anxiety state 10/05/2015 Dilantin toxicity 10/05/2015 Myoclonus 07/28/2005 Overview: possible documented as of this encounter (statuses as of 05/24/2023) Resolved Problems Problem Noted Date Diagnosed Date [...] as of this encounter (statuses as of 05/24/2023) Immunizations Name Administration Dates Next Due COVID-19 mRNA, LNP-s, No Pre serve, 2-Dose Series ([employer]) 11/03/2020,10/13/2020 SEASONAL INFLUENZA, PF, 6 M & Above, IM , (FLULAVAL or FLUZONE) 07/30/2019 TDAP (age 10 and older)([employer]) 01/31/2013 [...] encounter Miscellaneous Notes * Telephone Encounter - Filomena Arevalo MD - 05/24/2023 4:42 PM ESTSigned Prescriptions: Disp Refills carBAMazepine 100 MG Oral Tablet Chewable *90 Tab*5 Sig: Take (chew) 1 & 1/2 tablets by mouth twice daily with the 300 mg tabs Authorizing Provider: FILOMENA AREVALO * Telephone Encounter - Manuela Samaniego, MED ASSIST - 05/24/2023 2:39 PM EST Pending Prescriptions: Disp Refills carBAMazepine 100 MG Oral Tablet Chewable *90 Tab*5 Sig: Take (chew) 1 & 1/2 tablets by mouth twice daily with the 300 mg tabs documented in this encounter Plan of Treatment Upcoming Encounters Date Type Department Care Team (Late st Contact Info) Description 07/23/2023 11:50 AM EST Office Visit [facility] [address] [place] [address] Arabella Noland DO [address] [place] [address] 10/22/2023 12:00 PM EDT Office Visit Gynecology/Obstetrics [address] [place] [address] nAa Chacko CRNP [address] [place] [address] 11/08/2023 10:00 AM EDT Office Visit Neurology [facility] [address] [facility] [place] [address] [address] Chester MD [address] [place] [address] Health Maintenance Due Date Last [...] COVID-19 Vaccine (2022- season) 2023 11/03/2020, 10/13/2020 Influenza Vaccine (FLU shot) (#1) 2023 03/31/2022, 07/30/2019, 07/30/2019 GARDASIL-HPV IMMUNIZATION SERIES Aged Out No longer eligible based on patient's age to complete this topic MENINGOCOCCAL (MENACTRA/MENVEO) Aged Out No longer eligible based on patient's age to complete this topic documented as of this encounter Medical Devices Not on filedocumented as of this encounter Visit Diagnoses Diagnosis GENERALIZED CONVULSIVE EPILEPSY; WITHOUT MENTION OF INTRACTABLE EPILEPSY Generalized convulsive epilepsy without mention of intractable epilepsy documented in this encounter Care Teams Industrial Psychology Teacher Relationship Specialty Start Date End Date Arabella Noland DO [address] [place] [address] PCP - General Family Medicine 11/16/14 documented as of this encounter
--- OUTSIDE RECORDS SUMMARY | 2023-08-19 12:35 | External Medical Summary | Summary of Care ---
Author Name Unknown Organization [facility] Address [address] [place] [address] Phone [phone] Care Team Providers Care Waiter/Waitress Tourist Class Name Role Phone Arabella Noland DO Primary Care Provider [phone] Reason for Visit * Reason Onset Date Comments Encounter Created in Error 05/08/2023 ] Encounter Details Date Type Department Care Team (Late st Contact Info) Description 05/08/2023 Telephone Neurology [facility] [place] [address] [place] [address] Francisco Carter MD [address] [facility] [address] Encounter Created in Error (]) Allergies Active Allergy Reactions Criticality Noted Date Comments Sulfamethoxazole-Trimethopr im Diarrhea High 11/16/2014 Sulfamethoxazole-Trimethopr im Diarrhea 05/24/2018 Nausea, vomiting and diarrhea, abdominal pain Prednisone 09/27/2015 Does not gagandeep when on dilantin documented as of this encounter (statuses as of 05/08/2023) Medications Medication Sig Dispensed Refills Start Date [...] Breath. 360 mL 3 09/25/2022 Active carBAMazepine 100 MG Oral Tablet Chewable (Tegretol)Indications :Generalized convulsive epilepsy without intractable epilepsy (HCC) Take (chew) 1 & 1/2 tablets by mouth twice daily with the 300 mg tabs 90 Tablet 5 01/03/2023 Active carBAMazepine ER 300 MG Oral Capsule Extended Release 12 Hour (Carbatrol)Indication s:Seizure disorder (HCC) TAKE 2 CAPSULES BY MOUTH IN THE MORNING AND 2 AT BEDTIME 360 Capsule 1 02/06/2023 Active clonazePAM 1 MG Oral Tablet (KlonoPIN)Indications :Idiopathic torsion dystonia Take 1 Tablet by mouth in the morning and 1 Tablet at noon and 1 Tablet before bedtime. 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 Medical marijuana use 03/15/2018 Overview: Since 11/02--vaporiser pen Diarrhea 01/09/2018 Chronic low back pain 10/05/2015 Seizure disorder 10/05/2015 Anxiety state 10/05/2015 Dilantin toxicity 10/05/2015 Myoclonus 07/28/2005 Overview: possible documented as of this encounter (statuses as of 05/08/2023) Resolved Problems Problem Noted Date Diagnosed Date [...] as of this encounter (statuses as of 05/08/2023) Immunizations Name Administration Dates Next Due COVID-19 mRNA, LNP-s, No Pre serve, 2-Dose Series ([employer]) 11/03/2020,10/13/2020 SEASONAL INFLUENZA, PF, 6 M & [...] Description 07/23/2023 11:50 AM EST Office Visit [facility] [address] [facility] [place] [address] Arabella Noland, [address] [facility] [place] [address] 10/22/2023 12:00 PM EDT Office Visit Gynecology/Obstetrics [address] [place] [address] Ana Chacko CRNP [address] [place] [address] 11/08/2023 10:00 AM EDT Office Visit Neurology Kathleen Puente [place] 200 [facility] [place] [address] [address] [place] MD [address] [facility] [place] [address] Health Maintenance Due Date Last Done Comments [...] Not on filedocumented as of this encounter Care Teams Waiter/Waitress Tourist Class Relationship Specialty Start Date End Date Arabella Noland DO [address] [place] [address] PCP - General Family Medicine 11/16/14 documented as of this encounter
--- OUTSIDE RECORDS SUMMARY | 2023-08-19 12:35 | External Medical Summary | Summary of Care ---
Author Name Unknown Organization [facility] Address [address] [facility] [address] Phone [phone] Care Team Providers Care Night Coordinator Name Role Phone Arabella Noland DO Primary Care Provider Reason for Visit * Reason Onset Date Comments Advice 05/03/2023 Encounter Details Date Type Department Care Team (Late st Contact Info) Description 05/03/2023 Telephone Neurology [facility] [place] [address] [place] [address] Melissa Maciel PA-C [address] [place] [address] Advice Allergies Active Allergy Reactions Criticality Noted Date Comments Sulfamethoxazole-Trimethopr im Diarrhea High 11/16/2014 Sulfamethoxazole-Trimethopr im Diarrhea 05/24/2018 Nausea, vomiting and diarrhea, abdominal pain Prednisone 09/27/2015 Does not gagandeep when on dilantin documented as of this encounter (statuses as of 05/07/2023) Medications Medication Sig Dispensed Refills Start Date [...] AT BEDTIME 360 Capsule 1 02/06/2023 Active documented as of this encounter (statuses as of 05/07/2023) Active Problems Problem Noted Date Diagnosed Date 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 Medical marijuana use 03/15/2018 Overview: Since 11/02--vaporiser pen Diarrhea 01/09/2018 Chronic low back pain 10/05/2015 Seizure disorder 10/05/2015 Anxiety state 10/05/2015 Dilantin toxicity 10/05/2015 Myoclonus 07/28/2005 Overview: possible documented as of this encounter (statuses as of 05/07/2023) Resolved Problems Problem Noted Date Diagnosed Date [...] as of this encounter (statuses as of 05/07/2023) Immunizations Name Administration Dates Next Due COVID-19 mRNA, LNP-s, No Pre serve, 2-Dose Series ([employer]) 11/03/2020,10/13/2020 SEASONAL INFLUENZA, PF, 6 M & [...] encounter Miscellaneous Notes * Telephone Encounter - Sweta Meza LPN - 05/07/2023 4:42 PM EST Called and talked to the pharmacist. Just needed verification on filling the clonazepam and removing the lorazepam from the profile * Telephone Encounter - Christelle Harris OSA - 05/07/2023 12:18 PM EST [facility] [phone] please call, has questions on medication * Telephone Encounter - Manuela Samaniego MED ASSIST - 05/04/2023 8:28 AM EST Lmom. * Telephone Encounter - Arabella Gant OSA - 05/03/2023 11:57 AM EST Please have Dennis Maciel return pt call . LUNA. documented in this encounter Plan of Treatment Upcoming Encounters Date Type Department Care Team (Late st Contact Info) Description 07/23/2023 11:50 AM EST Office Visit [facility] [address] [place] [facility] [place] [phone] Arabella Noland DO [address] [place] [address] 10/22/2023 12:00 PM EDT Office Visit Gynecology/Obstetrics [address] [place] [address] Ana Chacko CRNP [address] [place] [address] 11/08/2023 10:00 AM EDT Office Visit Neurology [facility] [address] [place] [address] [address] Chester MD [address] [place] [address] Health Maintenance Due Date Last [...] filedocumented as of this encounter Care Teams Night Coordinator Relationship Specialty Start Date End Date Arabella Noland DO [address] [place] [address] PCP - General Family Medicine 11/16/14 documented as of this encounter
--- OUTSIDE RECORDS SUMMARY | 2023-08-19 12:35 | External Medical Summary | Summary of Care ---
Author Name Unknown Organization [facility] Address [address] [facility] [place] [address] Phone [phone] Care Team Providers Care Dressmaker Garment Fitter Name Role Phone Arabella Noland DO Primary Care Provider Reason for Visit * Reason Comments eRx-Medication Refill Encounter Details Date Type Department Care Team (Late st Contact Info) Description 05/03/2023 Refill Neurology [facility] [place] [place] [address] [place] [address] Melissa Maciel PA-C [address] [place] [address] Allergies Active Allergy Reactions Criticality Noted Date Comments Sulfamethoxazole-Trimethopr im Diarrhea High 11/16/2014 Sulfamethoxazole-Trimethopr im Diarrhea 05/24/2018 Nausea, vomiting and diarrhea, abdominal pain Prednisone 09/27/2015 Does not gagandeep when on dilantin documented as of this encounter (statuses as of 05/04/2023) Medications Medication Sig Dispensed Refills Start Date End Date Status Venlafaxine HCl ER 150 MG Oral Capsule Extended Release 24 Hour (Effexor XR) TAKE 1 CAP BY MOUTH DAILY. EVERY MORNING. 90 Capsule 0 06/29/2021 Active Venlafaxine HCl ER 75 MG Oral Tablet Extended Release 24 Hour Take 1 Tablet by mouth in the morning. 0 Active OLANZapine 2.5 MG Oral Tablet (zyPREXA)Indications: Seizure disorder (HCC),Psychosis, unspecified psychosis type (HCC) Take 1 tablet in the morning and 1 tablet before bed. 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 Medical marijuana use 03/15/2018 Overview: Since 11/02--vaporiser pen Diarrhea 01/09/2018 Chronic low back pain 10/05/2015 Seizure disorder 10/05/2015 Anxiety state 10/05/2015 Dilantin toxicity 10/05/2015 Myoclonus 07/28/2005 Overview: possible documented as of this encounter (statuses as of 05/04/2023) Resolved Problems Problem Noted Date Diagnosed Date [...] as of this encounter (statuses as of 05/04/2023) Immunizations Name Administration Dates Next Due COVID-19 mRNA, LNP-s, No Pre serve, 2-Dose Series ([employer]) 11/03/2020,10/13/2020 SEASONAL INFLUENZA, PF, 6 M & [...] encounter Miscellaneous Notes * Telephone Encounter - Maria Elena Pride CPhT - 05/04/2023 1:19 PM ESTRefused Prescriptions: Disp Refills LORazepam 1 MG Oral Tablet (Ativan) 120 Ta*2 Sig: TAKE 1 TABLETBY MOUTH FOUR TIMES A DAYRefused By: Shayla PRIDE for Refusal: Duplicate Request--------- documented in this encounter Plan of Treatment Upcoming Encounters Date Type Department Care Team (Late st Contact Info) Description 07/23/2023 11:50 AM EST Office Visit [facility] [address] [place] [phone] Arabella Noland DO [address] [place] [address] 08/08/2023 10:00 AM EST Office Visit Neurology Kathleen Puente [place] [address] [place] [address] [address] Chester MD [address] [place], [place] [address] 10/22/2023 12:00 PM EDT Office Visit Gynecology/Obstetrics [address] [place] [phone] Ana Chacko CRNP [address] [place] [address] Health Maintenance Due Date Last Done Comments [...] filedocumented as of this encounter Care Teams Dressmaker Garment Fitter Relationship Specialty Start Date End Date Arabella Noland DO [address] [place] [address] PCP - General Family Medicine 11/16/14 documented as of this encounter
--- OUTSIDE RECORDS SUMMARY | 2023-08-19 12:35 | External Medical Summary | Summary of Care ---
Author Name Unknown Organization [facility] Address [address] [facility] [address] Phone [phone] Care Team Providers Care Straightener Hand Name Role Phone Arabella Noland DO Primary Care Provider Reason for Visit * Reason Onset Date Comments Medication Refill 05/02/2023 Encounter Details Date Type Department Care Team (Late st Contact Info) Description 05/02/2023 Refill Neurology [facility] [place] [address] [place] [address] Melissa Maciel PA-C [address] [facility] [place] [address] Allergies Active Allergy Reactions Criticality Noted Date [...] 0 Active OLANZapine 2.5 MG Oral Tablet (zyPREXA)Indication s:Seizure disorder (HCC),Psychosis, unspecified psychosis type (HCC) Take [...] A DAY 120 Tablet 2 05/04/2023 Active LORazepam 1 MG Oral Tablet (Ativan) TAKE 1 TABLET BY MOUTH 4 TIMES A DAY 120 Tablet 2 02/07/2023 3 Discontinue d(Refill) documented as of this [...] Telephone Encounter - Filomena Arevalo MD - 05/04/2023 8:07 AM ESTSigned Prescriptions: Disp Refills LORazepam 1 MG Oral Tablet (Ativan) 120 Ta*2 Sig: TAKE 1 TABLET BY MOUTH 4 TIMES A DAY Authorizing Provider: FILOMENA AREVALO * Telephone Encounter - Myriam Jimenez CPhT - 05/03/2023 10:26 AM EST Pt calling in to check status of refill. Please advise. Thank you, Myriam Jimenez Resource Conservation Specialist [facility]) 05/03/2023, 10:26 AM * Telephone Encounter - Manuela Samaniego MED ASSIST - 05/03/2023 8:18 AM EST Pending Prescriptions: Disp Refills LORazepam 1 MG Oral Tablet (Ativan) 120 Ta*2 Sig: TAKE 1 TABLETBY MOUTH 4 TIMES A DAY documented in this encounter Plan of Treatment Upcoming Encounters Date Type Department Care Team (Late st Contact Info) Description 07/23/2023 11:50 AM EST Office Visit [facility] [address] [place] [phone] Arabella Noland, DO [address] [place] [address] 08/08/2023 10:00 AM EST Office Visit Neurology Kathleen Puente [place] [address] [place] [address] [address] Chester MD [address] [facility] [place] [address] 10/22/2023 12:00 PM EDT Office Visit Gynecology/Obstetrics [address] [place] [phone] Ana Chacko CRNP [address] [place] [address] Health Maintenance Due Date Last Done Comments [...] filedocumented as of this encounter Care Teams Straightener Hand Relationship Specialty Start Date End Date Arabella Noland DO [address] [place] [address] PCP - General Family Medicine 11/16/14 documented as of this encounter
--- OUTSIDE RECORDS SUMMARY | 2023-08-19 12:35 | External Medical Summary | Summary of Care ---
Author Name Unknown Organization [facility] Address [address] [place] [address] Phone [phone] Care Team Providers Care Wine Steward/Stewardess Name Role Phone Arabelal Noland DO Primary Care Provider Reason for Visit * Reason Comments NEW PATIENT Encounter Details Date Type Department Care Team (Late st Contact Info) Description 05/07/2023 11:20 AM EST Office Visit Neurology [facility] [address] [place] [address] Ld Chester MD [address] [place] [address] Idiopathic torsion dystonia* Allergies Active Allergy Reactions Criticality Noted Date [...] before bedtime. 90 Tablet 5 05/07/2023 Active OLANZapine 2.5 MG Oral Tablet (zyPREXA)Indication s:Seizure disorder (HCC),Psychosis, unspecified psychosis type (HCC) Take 1 tablet in the morning and 1 tablet before bed. 60 Tablet 5 09/14/2021 3 Discontinue d(Medicatio n List Clean Up) LORazepam 1 MG Oral Tablet (Ativan) TAKE 1 TABLET BY MOUTH 4 TIMES A DAY 120 Tablet 2 05/04/2023 3 Discontinue d(Medicatio n List Clean Up) documented as of this encounter (statuses as [...] mRNA, LNP-s, No Pre serve, 2-Dose Series ([employer]) 11/03/2020,10/13/2020 SEASONAL INFLUENZA, PF, 6 M & [...] Sign Reading Time Taken Comments Blood Pressure 116/82 05/07/2023 11:27 AM EST Pulse 88 05/07/2023 11:27 AM EST Temperature 37.3 C (99.1 F) 05/07/2023 11:[address] Respiratory Rate 18 05/07/2023 11:27 AM EST Oxygen Saturation 99% 05/07/2023 11:27 AM EST Inhaled Oxygen Concentration - - Weight 89 kg (196 lb 3.2 oz) 05/07/2023 11:27 AM EST Height - - Body Mass Index 31.67 02/07/2023 11:02 AM EDT documented in this encounter Functional Status Functional [...] as of this encounter Progress Notes * Ld Chester MD - 05/07/2023 11:39 AM EST 05/07/2023 11:39 AM Donya Hwang 33 year old female Ref: [id number]] NO STREET ADDRESS AVAILABLE None (office) None (fax) Asked by Arabella Noland DO to render opinion regarding recurrent involuntary movements. CC: Chief Complaint Patient presents with NEW PATIENT HPI: The patient is a 33-year-old woman who has been seen by colleagues of this practice for management seizure-like activity. She does not have a clear diagnosis of epilepsy, however. 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 Symptoms began at age 13 and were slowly progressive. He was actually seen by our movement Disorder section in the past. She was seen by my colleague, Dr. Gibson who in October of 2018. She had clusters of episodes with dystonic postures. She was trialed on carbidopa levodopa in the past but had some side effects with this medication. She has frequent startle episodes during which she suddenly loses tone in the lower limbs followed by convulsive type activity. She had numerous EEG studies which were all normal. Tested negative for stiff person syndrome.. She is also seen our clinic clerk, Ms. Calderon. A dystonia panel from gene DX was negative. She had some improvement with lorazepam. Has no family history. She uses a wheelchair most of the time due to her walking issues. She did not improve with a trial of carbamazepine. She also was trialing medical marijuana which helped a lot, calmed her down. She was born 2 months premature. Freezes and falls to ground. She is awake during the episodes. Episodes are not lasting more than 30 seconds. She has other episodes at night times which are lasting longer. Starts out with a regularspasm, continues every couple minutes. Does weird twisty movements. She has hurt herself pretty good in the past, has numerous scars in her face. It also happens when she is in a wheelchair. On Ativan which does not really work well, Tried Clonazepam up to 4mg per day. She was able to walkwith it. Was on it for 10 years. 5 days before she gets per period she has it severe. 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 EVERY MORNING. 90 Capsule 0 Venlafaxine HCl ER 75 MG Oral Tablet Extended Release 24 Hour Take 1 Tablet by mouth in the morning. OLANZapine 2.5 MG Oral Tablet (zyPREXA) Take 1 tablet in the morning and 1 tablet before bed. 60 Tablet 5 Albuterol Sulfate HFA 108 (90 Base) MCG/ACT Inhalation Aerosol Solution Inhale by mouth 2 Puffs every 4 hours as needed for Wheezing. 18 g 5 Ondansetron HCl 4 MG Oral Tablet (Zofran) TAKE 1 TABLET BY MOUTH EVERY 6 HOURS NEEDED FOR GEGWIU37 Tablet 0 Senna 8.6 MG Oral Tablet [...] Shortness of Breath. 360 mL 3 carBAMazepine 100 MG Oral Tablet Chewable (Tegretol) Take (chew) 1 & 1/2 tablets by mouth twicedaily with the 300 mg tabs 90 Tablet 5 carBAMazepine ER 300 MG Oral Capsule Extended Release 12 Hour (Carbatrol) TAKE 2 CAPSULES BY MOUTH IN THE MORNING AND 2 AT BEDTIME 360 Capsule 1 LORazepam 1 MG Oral Tablet (Ativan) TAKE 1 TABLET BY MOUTH 4 TIMES A DAY 120 Tablet 2 No current facility-administered medications for this visit. ALLERGIES: Review of patient's allergies indicates: Allergen Reactions Bactrim [Sulfamethoxazole-Trimethoprim] Diarrhea Bactrim [Sulfamethoxazole-Trimethoprim] Diarrhea Nausea, vomiting and diarrhea, abdominal pain Prednisone Does not gagandeep when on dilantin Social History Socioeconomic History Marital status: Spouse name: Sina Thompson Number of children: 1 Years of education: 12 Highest education level: Not on file Occupational History Occupation: disability Tobacco Use Smoking status: Former Types: Cigarettes Quit date: 02/16/2010 Years since quittin.2 Smokeless tobacco: Never Tobacco comments: Quit in 05/17/15. Vaping Use Vaping Use: Every day Substances: THC, CBD, Flavoring Devices: Disposable, Pre-filled or refillable cartridge Substance and Sexual Activity Alcohol use: No Drug use: Yes Frequency: 7.0 times per week Types: Marijuana Comment: medical marijuana card Sexual activity: Yes Partners: Male control/protection: Surgical Comment: BTL Other Topics Concern Not on file Social History Narrative Lives with parents and has 2 daughters. from the father of her daughters. Social Determinants of Health Financial Resource Strain: Not on file Food Insecurity: No Food Insecurity (04/09/2023) Hunger Vital Sign Worried About Running Out of Food in the Last Year: Never true Ran Out of Food in the Last Year: Never true Transportation Needs: Not on file Physical Activity: Not on file Stress: Not on file Social Connections: Not on file Intimate Partner Violence: Not on file Housing Stability: Not on file Occupation: disabled HIV risk factors: None FAMILY HISTORY Family History Problem Relation Age of Onset Hyperlipidemia Mother Depression Mother Heart Disorder Father Hypertension Father Hyperlipidemia Father Colon cancer Sister Gastro-intestinal disorder Sister UC Asthma Brother Arthritis Grandmother (Maternal) Family Status Relation Status Mo (Not Specified) Fa (Not Specified) Sis (Not Specified) Bro (Not Specified) MGMA (Not Specified) REVIEW OF SYSTEMS: The patient denies new cardiac, lung, kidney, liver, skin, thyroid, bladder, or digestive problems.The patient also denies acute changes in hearing or vision. Otherwise, all other systems are negative or as noted above. BP 116/82 (BP Site: Right Arm, BP Position: Sitting, BP Cuff Size: Regular) | Pulse 88 | Temp 37.3 C (99.1 F) (Tympanic) | Resp 18 | Wt 89 kg (196 lb 3.2 oz) | SpO2 99% | BMI 31.67 kg/m | BSA 2.04 m The patient is a 33 year old female who is well developed and appears to be their stated age. NEUROLOGIC EXAMINATION: Mental status: Intact higher integrative functions. Orientated to person, place, and time. Recent and remote memory functions are intact. Attention, concentration, language, and fund of knowledge arenormal. Judgment and insight are intact. Mood and affect are normal. No overt focality, hyperreflexic. IMPRESSION: Pt with unclear form of torsion dystonia. Had fairly good response to Clonazepam in the past which should be revisited. RECOMMENDATIONS: I will put her on Clonazepam 1mg TID instead of Ativan. She will continue on there other medications for now. Also medical marijuana. If restarting Clonazepam is not beneficial, we may need to consider DBS. I spent approximately 40 minutes with this patient greater than half the time was spent reviewing diagnosis, physical exam, imaging, and treatment . Thank-you for letting me participate in the care of this patient. Ld Chester MD Neurology [address] [address] Please send copy to requesting physician, Arabella Noland DO documented in this encounter Nursing Notes * Teressa Whaley LPN - 05/07/2023 11:26 AM EST Patient verified identity by spelling of last name and date. Chief Complaint Patient presents with NEW PATIENT documented in this encounter Plan of Treatment Upcoming Encounters Date Type Department Care Team (Late st Contact Info) Description 07/23/2023 11:50 AM EST Office Visit [facility] [address] [place] [phone] Arabella Noland DO [address] [place] [address] 10/22/2023 12:00 PM EDT Office Visit Gynecology/Obstetrics [address] [place] [address] Ana [facility]acko CRNP [address] [facility] [address] 11/08/2023 10:00 AM EDT Office Visit Neurology 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
--- OUTSIDE RECORDS SUMMARY | 2023-08-19 12:35 | External Medical Summary | Summary of Care ---
Author Name Unknown Organization [facility] Address [address] [facility] [place] [address] Phone [phone] Care Team Providers Care Sports Journalist Name Role Phone Arabella Noland DO Primary Care Provider [phone] Reason for Visit * Reason Comments eRx-Medication Refill Encounter Details Date Type Department Care Team (Late st Contact Info) Description 05/03/2023 Refill Neurology [facility] [place] [address] [place] [address] Melissa Maciel PA-C [address] [place] [address] Allergies Active Allergy Reactions Criticality Noted Date [...] mRNA, LNP-s, No Pre serve, 2-Dose Series ([employer] [facility]) 11/03/2020,10/13/2020 SEASONAL INFLUENZA, PF, 6 M & [...] - Maria Elena Pride CPhT - 05/04/2023 1:53 PM ESTRefused Prescriptions: Disp Refills LORazepam 1 MG Oral Tablet (Ativan) 30 Tab*0 Sig: Take 1 tabletby mouth 4 times dailyRefused By: Shayla PRIDE for Refusal: Duplicate Request documented in this encounter Plan of Treatment Upcoming Encounters Date Type Department Care Team (Late st Contact Info) Description 07/23/2023 11:50 AM EST Office Visit [facility] [address] [place] [phone] Arabella Noland DO [address] [place] [address] 08/08/2023 10:00 AM EST Office Visit Neurology [facility] [place] [address] [place] [address] Ld Chester MD [address] [place], [place] [address] 10/22/2023 12:00 PM EDT Office Visit Gynecology/Obstetrics [address] [place] [phone] Ana Chacko CRNP [address] [place] [address] Health Maintenance Due Date Last Done Comments [...] filedocumented as of this encounter Care Teams Sports Journalist Relationship Specialty Start Date End Date Arabella Noland DO [address] [place] [address] PCP - General Family Medicine 11/16/14 documented as of this encounter
--- OUTSIDE RECORDS SUMMARY | 2023-08-19 12:35 | External Medical Summary | Summary of Care ---
Author Name Unknown Organization [facility] Address [address] [facility] [address] Phone [phone] Care Team Providers Care Mixed Crop Farmer Name Role Phone Arabella Noland DO Primary Care Provider [phone] Reason for Visit * Reason Comments eRx-Medication Refill Encounter Details Date Type Department Care Team (Late st Contact Info) Description 05/02/2023 Refill Neurology [facility] [place] [address] [place] [address] Melissa Maciel PA-C [address] [place] [address] Restless legs syndrome Allergies Active Allergy Reactions Criticality Noted Date Comments Sulfamethoxazole-Trimethopr im Diarrhea High 11/16/2014 Sulfamethoxazole-Trimethopr im Diarrhea 05/24/2018 Nausea, vomiting and diarrhea, abdominal pain Prednisone 09/27/2015 Does not gagandeep when on dilantin documented as of this encounter (statuses as of 05/03/2023) Medications Medication Sig Dispensed Refills Start Date [...] TIMES A DAY 120 Tablet 2 02/07/2023 Active documented as of this encounter (statuses as of 05/03/2023) Active Problems Problem Noted Date Diagnosed Date 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 Medical marijuana use 03/15/2018 Overview: Since 5/18--vaporiser pen Diarrhea 01/09/2018 Chronic low back pain 10/05/2015 Seizure disorder 10/05/2015 Anxiety state 10/05/2015 Dilantin toxicity 10/05/2015 Myoclonus 07/28/2005 Overview: possible documented as of this encounter (statuses as of 05/03/2023) Resolved Problems Problem Noted Date Diagnosed Date [...] as of this encounter (statuses as of 05/03/2023) Immunizations Name Administration Dates Next Due COVID-19 mRNA, LNP-s, No Pre serve, 2-Dose Series ([employer]) 11/03/2020,10/13/2020 SEASONAL INFLUENZA, PF, 6 M & [...] * Telephone Encounter - Raúl Farrell - 05/03/2023 4:36 AM ESTRefused Prescriptions: Disp Refills LORazepam 1 MG Oral Tablet (Ativan) 120 Ta*2 Sig: TAKE 1 TABLETBY MOUTH FOUR TIMES A DAYRefused By: RAÚL FARRELLReason for Refusal: Duplicate Request--------- documented in this encounter Plan of Treatment Upcoming Encounters Date Type Department Care Team (Late st Contact Info) Description 07/23/2023 11:50 AM EST Office Visit [facility] [place] [address] [place] [facility] [place] [phone] Arabella Noland DO [address] [place] [address] 08/08/2023 10:00 AM EST Office Visit Neurology [facility] [place] [address] [facility] [place] [address] Ld Chester MD [address] [facility], [place] [id number] 10/22/2023 12:00 PM EDT Office Visit Gynecology/Obstetrics [address] [place] [address] Ana Chacko CRNP [address] [place] [address] Health Maintenance Due Date Last Done Comments [...] as of this encounter Visit Diagnoses Diagnosis Restless legs syndrome Restless legs syndrome (RLS) documented in this encounter Care Teams Mixed Crop Farmer Relationship Specialty Start Date End Date Arabella Noland DO [address] [place] [address] PCP - General Family Medicine 11/16/14 documented as of this encounter
--- OUTSIDE RECORDS SUMMARY | 2023-08-19 12:35 | External Medical Summary | Summary of Care ---
Author Name Unknown Organization [facility] Address [address] [facility] [place] [address] Phone [phone] Care Team Providers Care Heel Sander Rubber Name Role Phone Arabella Noland DO Primary Care Provider Encounter Details Date Type Department Care Team (Late st Contact Info) Description 05/08/2023 Population Health External Data Unspecified Department Allergies Active Allergy Reactions Criticality Noted Date [...] mRNA, LNP-s, No Pre serve, 2-Dose Series ([employer]) 11/03/2020,10/13/2020 SEASONAL INFLUENZA, PF, 6 M & [...] Description 07/23/2023 11:50 AM EST Office Visit [facility] [address] [place] [address] Arabella Noland, DO [address] [place] [address] 10/22/2023 12:00 PM EDT Office Visit Gynecology/Obstetrics [address] [place] [address] Ana Chacko CRNP [address] [facility] [place] [address] 11/08/2023 10:00 AM EDT Office Visit Neurology Kathleen [facility]ente [place] [address] [facility] [place] [address] Ld Chester MD [address] [facility] [address] Health Maintenance Due Date Last Done [...] filedocumented as of this encounter Care Teams Heel Sander Rubber Relationship Specialty Start Date End Date Arabella Noland DO [address] [place] [address] PCP - General Family Medicine 11/16/14 documented as of this encounter
--- NOTE | 2023-08-19 12:47 | Emergency Department Note ---
History of Present Illness General Chief complaint: Abdominal Pain Stated complaint: ABDOMINAL PAIN Time Seen by Provider: 08/19/23 12:37 History of Present Illness Maximum Pain Intensity: 7 NAME: PETRA TRAORE AGE: 33 SEX: F : 1990 ARRIVES VIA: Walk-In INFORMANT: Patient ED PROVIDER(S): ANTOINETTE Brown, Marco Oconnor DO Patient is a 33-year-old female who arrives to the emergency department for evaluation of right lower quadrant abdominal pain. She reports the pain has been progressing over the last month, she had an ultrasound on Sunday which was ordered by gastroenterology at [facility]. She states since that time she has had worsening of her pain, nausea, vomiting, constipation. She reports the sensation "feels like I have been kicked in the stomach." The patient reports she was provided with Zofran from gastroenterology, however it has not helped. She reports she is vomiting and dry heaving continuously, she is unable to keep down food and fluids. She denies fever, chest pain, shortness of breath, or urinary issues. Home Medications Medication Instructions Recorded Confirmed Type albuterol sulfate 90 mcg/actuation 2 puff inhalation Q4 PRN Wheezing 08/19/23 08/19/23 History aerosol inhaler carbamazepine 100 mg chewable 150 mg PO BID 08/19/23 08/19/23 History tablet carbamazepine 300 mg 600 mg PO AMHS 08/19/23 08/19/23 History capsule,extended release [id number] clonazepam 1 mg tablet 1 mg PO QID 08/19/23 08/19/23 History duloxetine 60 mg capsule,delayed 120 mg PO QAM 08/19/23 08/19/23 History release linaclotide 145 mcg capsule 145 mcg PO .NOT YET STARTED 08/19/23 08/19/23 History (Linzess) ondansetron 4 mg disintegrating 4 mg PO Q6H PRN Nausea 08/19/23 08/19/23 History tablet phenytoin sodium extended 100 mg 200 mg PO AMPM 08/19/23 08/19/23 History capsule Allergies Allergy/AdvReac Type Severity Reaction Status Date / Time prednisone AdvReac Intermediate DILANTIN Verified 08/19/23 16:14 TOXICITY sulfamethoxazole AdvReac Intermediate BURNING,ALIX Verified 08/19/23 16:14 RRHEA trimethoprim AdvReac Intermediate BURNING,ALIX Verified 08/19/23 16:14 RRHEA Past Med/Surg History Medical History (Updated 08/19/23 @ 22:56 by ANTOINETTE Page) Pituitary adenoma 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 Noncompliance with medication regimen PVT (portal vein thrombosis) Anxiety Dystonia Liver lesion, right lobe Hepatic vein thrombosis Asthma Restless leg syndrome Depression Seizure disorder Surgical History Hx of tubal ligation History of dental surgery Family History (Updated 08/19/23 @ 17:04 by Lori Talbot PA-C) Other Colorectal cancer Hypertension Social History Smoking Status: Former smoker Tobacco Type: Cigarettes Second Hand Exposure: No; Do You Dip or Chew Tobacco: No; Tobacco Cessation Education Requested by Patient: No Hx Alcohol Use: No Hx Substance Use: Yes Last Used Substance: Days (ago) Last Used Substance Other:: medical marijuana Substance Use Type Other:: medical marijuana Preferred Language: Greenlandic Communication Ability: Effective Event Marketing Manager Required: No Beliefs That Will Affect Care: None Current Living Situation: Spouse Current Living Situation Comment: 1 story house Other Information That Helps Us Care for You: No Feels Safe at Home: Yes Safety Concerns: Feels Safe At This Time Assistive Devices: Glasses and Wheelchair Physical Exam Vital Signs Vital Signs - 24 hr 08/19/23 12:28 08/19/23 12:33 08/19/23 13:00 Temperature 36.6 C Temperature Source Temporal Artery Scan Pulse Rate 108 H Pulse Rate [Right Finger] Respiratory Rate 18 Respiratory Effort / Characteristics Non-Labored Respiratory Depth Normal Respiratory Pattern Regular Blood Pressure 145/104 H Blood Pressure [Left Arm] Blood Pressure Mean 117 Blood Pressure Mean [Left Arm] Blood Pressure Position [Left Arm] Pulse Oximetry 97 97 Oxygen Delivery Method Room Air Room Air Room Air Sepsis Recent Fever Within 48 Hours No Sepsis New/Unexplained Change in Mental Status N/A Sepsis Action Taken by Nursing No Action Required 08/19/23 15:00 Temperature Temperature Source Pulse Rate Pulse Rate [Right Finger] 91 H Respiratory Rate 17 Respiratory Effort / Characteristics Non-Labored Spontaneous Respiratory Depth Normal Respiratory Pattern Blood Pressure Blood Pressure [Left Arm] 132/90 Blood Pressure Mean Blood Pressure Mean [Left Arm] 104 Blood Pressure Position [Left Arm] Semi-fowlers Pulse Oximetry 98 Oxygen Delivery Method Room Air Sepsis Recent Fever Within 48 Hours Sepsis New/Unexplained Change in Mental Status Sepsis Action Taken by Nursing VITALS: Vitals are noted on the nurse's note and reviewed by myself. Vital signs stable. GENERAL: 33-year-old female, in mild distress, nondiaphoretic, well-developed well-nourished. SKIN: The skin was without rashes, erythema, edema, or bruising. HEAD: Normocephalic atraumatic. NECK: Supple without nuchal rigidity. No lymphadenopathy. No thyromegaly. Cervical spine is nontender. No JVD. HEART: Regular rate and rhythm without murmurs gallops or rubs. LUNGS: Clear to auscultation bilaterally without wheezes, rales or rhonchi. No retractions or accessory muscle use. ABDOMEN: Tenderness to palpation, right lower quadrant. No masses noted, no rebound tenderness, guarding present. MUSCULOSKELETAL: No muscle atrophy, erythema, or edema noted. Full range of motion without joint tenderness in all extremities. No tenderness to palpation. Normal gait. Strength 5/5 throughout. NEURO: Patient was alert and oriented to person place and time. No focal neurological deficits. Course Administered Medications Acetaminophen (Acetaminophen 500 Mg Tab) 1,000 mg PO Q8H [facility] Stop: 09/18/23 17:59 Last Admin: 08/19/23 17:57 Dose: 1,000 mg Documented By: CARLOS Carbamazepine (Carbamazepine 100 Mg Chew Tab) 150 mg PO BID [facility] Stop: 09/18/23 21:07 Last Admin: 08/19/23 22:06 Dose: 150 mg Documented By: ISELA Clonazepam (Clonazepam 1 Mg Tab) 1 mg PO QID [facility] Stop: 09/18/23 21:07 Last Admin: 08/19/23 22:13 Dose: 1 mg Documented By: ISELA Hydromorphone HCl (Hydromorphone Inj 0.5 Mg/0.5 Ml Syr) 0.5 mg IV Q6H PRN PRN Reason: Severe Pain (Scale 7, 8, 9,10) Stop: 09/02/23 21:07 Last Admin: 08/19/23 21:43 Dose: 0.5 mg Documented By: ISELA Pantoprazole Sodium 40 mg/ (Syringe) 10 mls @ 5 mls/min IV Q12H DWAYNE Stop: 09/18/23 16:59 Last Admin: 08/19/23 17:30 Dose: 5 mls/min Documented By: CARLOS Lidocaine (Lidocaine 5% 1 Patch) 1 patch TD DAILY DWAYNE Stop: 09/18/23 17:59 Last Admin: 08/19/23 17:58 Dose: 1 patch Documented By: CARLOS Miscellaneous (Remove Lidoderm Patch) 1 each N/A DAILY@2100 DWAYNE Stop: 09/18/23 20:59 Last Admin: 08/19/23 21:29 Dose: 1 each Documented By: ISELA Carbatrol~Non- Formulary Patient's Own Med 1 each PO BID DWAYNE Stop: 09/18/23 21:44 Last Admin: 08/19/23 22:08 Dose: 600 mg Documented By: ISELA Phenytoin Sodium (Phenytoin Sodium Er 100 Mg Cap) 200 mg PO BID DWAYNE Stop: 09/18/23 21:14 Last Admin: 08/19/23 22:04 Dose: 200 mg Documented By: ISELA Discontinued Medications Clonazepam (Clonazepam 1 Mg Tab) 1 mg PO NOW STA Stop: 08/19/23 18:47 Last Admin: 08/19/23 18:53 Dose: 1 mg Documented By: JOSE Dicyclomine HCl (Dicyclomine Hcl 10 Mg Cap) 10 mg PO NOW ONE Stop: 08/19/23 16:52 Last Admin: 08/19/23 17:30 Dose: 10 mg Documented By: CARLOS Enoxaparin Sodium (Enoxaparin Inj 120 Mg/0.8 Ml Syr) 120 mg SQ NOW ONE Stop: 08/19/23 16:23 Last Admin: 08/19/23 17:32 Dose: 120 mg Documented By: CARLOS Sodium Chloride (Nss) 1,000 mls @ 999 mls/hr IV .Q1H1M STA Stop: 08/19/23 13:47 Last Infusion: 08/19/23 14:30 Dose: Infused Documented By: Admin: 08/19/23 13:19 Dose: 999 mls/hr Documented By: CARLOS Sodium Chloride (Nss) 1,000 mls @ 999 mls/hr IV .Q1H1M ONE Stop: 08/19/23 16:09 Last Infusion: 08/19/23 16:19 Dose: Infused Documented By: Admin: 08/19/23 15:15 Dose: 999 mls/hr Documented By: ALLAN Ioversol (Optiray 320 500ml) 93 ml IV ONCE ONE Stop: 08/19/23 14:01 Last Admin: 08/19/23 14:01 Dose: 93 ml Documented By: JOHANA Morphine Sulfate (Morphine Sulfate 4 Mg/Ml 1 Ml Carp\\Vial) 4 mg IV NOW STA Stop: 08/19/23 12:49 Last Admin: 08/19/23 13:18 Dose: 4 mg Documented By: CARLOS Morphine Sulfate (Morphine Sulfate 4 Mg/Ml 1 Ml Carp\\Vial) 4 mg IV NOW STA Stop: 08/19/23 14:30 Last Admin: 08/19/23 14:59 Dose: 4 mg Documented By: CARLOS Ondansetron HCl (Ondansetron Inj 2 Mg/Ml 2 Ml Vial) 4 mg IV NOW STA Stop: 08/19/23 12:49 Last Admin: 08/19/23 13:19 Dose: 4 mg Documented By: CARLOS Medical Decision Making Differential Diagnosis Appendicitis, ovarian cyst, ovarian torsion, ectopic , TOA, PID, infections, diverticulitis, UTI, obstruction, mesenteric ischemia, aortic pathology, inflammatory bowel disease, renal colic, PUD, pancreatitis, biliary pathology, hernia, volvulus, constipation, as well as other pathologies. Medical Records Attestation: I reviewed the patient's medical records. Home Medications Current Medication List: was personally reviewed by me Laboratory Data Attestation: I reviewed the patient's lab results. No leukocytosis, stable hemoglobin and hematocrit, no electrolyte abnormalities, negative beta-hCG, urine negative for infection. 08/19/23 12:50 08/19/23 12:50 Lab Results 08/19/23 08/19/23 Range/Units 12:50 15:46 WBC 6.74 (4.8-10.8) K/ul RBC 5.10 (4.20-5.40) M/uL Hgb 15.8 (12.0-16.0) g/dl Hct 44.9 (37.0-47.0) % MCV 88.0 (80.0-100.0) fL MCH 31.0 (25.0-34.0) pg MCHC 35.2 (32.0-36.0) g/dL RDW Std Deviation 41.2 (36.4-46.3) fL RDW Coeff of Erika 12.7 (11.5-14.5) % Plt Count 423 H (130-400) K/uL MPV 8.4 L (9.4-12.4) fL Immature Gran % (Auto) 0.3 % Neut % (Auto) 62.0 % Lymph % (Auto) 28.9 % [place] % (Auto) 8.2 % Eos % (Auto) 0.3 % Baso % (Auto) 0.3 % Neut # (Auto) 4.18 (1.40-6.50) K/uL Lymph # (Auto) 1.95 (1.20-3.40) K/uL [place] # (Auto) 0.55 (0.11-0.59) K/uL Eos # (Auto) 0.02 (0.00-0.50) K/uL Baso # (Auto) 0.02 (0.00-0.20) K/uL Immature Gran # (Auto) 0.02 (0.01-0.20) K/uL Sodium 136 (136-145) mmol/L Potassium 3.9 (3.5-5.1) mmol/L Chloride 102 (98-107) mmol/L Carbon Dioxide 24 (21-32) mmol/L Anion Gap 10 (3-11) BUN 11 (6-23) mg/dl Creatinine 0.79 (0.6-1.2) mg/dl Est Cr Clr Drug Dosing Not Reportable Est GFR ( Amer) 112.4 ml/min Est GFR (Non-Af Amer) 97.0 ml/min BUN/Creatinine Ratio 13.9 (10-20) Glucose 97 (70-99(Fasting)) mg/dl Calcium 9.1 (8.6-10.3) mg/dl Total Bilirubin 0.5 (0.2-1.0) mg/dl AST 15 (13-39) U/L ALT 13 (7-52) U/L Alkaline Phosphatase 122 H (34-104) U/L Total Protein 8.1 (6.0-8.3) gm/dl Albumin 4.7 (3.4-5.0) gm/dl Globulin 3.4 (2.5-4.0) gm/dl Albumin/Globulin Ratio 1.4 (0.9-2) Lipase 12 (11-82) U/L HCG, Qual Negative (Negative) Urine Color Yellow Urine Appearance Clear (Clear) Urine pH 5.5 (4.5-7.5) Ur Specific [place] > 1.045 H (1.000-1.030) Urine Protein Negative (Negative) Urine Glucose (UA) Negative (Negative) Urine Ketones Trace H (Negative) Urine Blood Negative (Negative) Urine Nitrite Negative (Negative) Urine Bilirubin Negative (Negative) Urine Urobilinogen Negative (Negative) Ur Leukocyte Esterase Negative (Negative) Imaging Data Attestation: I personally reviewed and interpreted this imaging study as follows: Radiologist's Impression: Abdomen/Pelvis CT 08/19/23 12:[address] WITH IV CONTRAST CT DOSE: 1264.81 mGy.cm HISTORY: Acute right lower quadrant abdominal pain RLQ pain TECHNIQUE: Multiaxial CT images of the abdomen and pelvis were performed following the IV administration of 93 cc of Optiray, A dose lowering technique was utilized adhering to the principles of ALARA. COMPARISON STUDY: December 17, 2021, MRI 11/12/2018. FINDINGS: The lung bases are clear. The spleen, gallbladder, pancreas, kidneys, and adrenal glands are within normal limits. Unchanged 1.6 cm lesion within the inferior right hepatic lobe on image 35 series 2 which was described as a probable complex cyst on the prior MRI. Normal appendix. Mild colonic diverticulosis. Scattered small enlarged bowel air-fluid levels. No bowel wall thickening or obstruction. 1.2 cm involuting right ovarian follicle. Pelvic structures are otherwise unremarkable. No suspicious lytic or blastic osseous lesions. IMPRESSION: 1. No bowel obstruction or bowel wall thickening. Normal appendix. 2. Scattered large and small bowel air-fluid levels may be physiologic or represent a mild enteritis/diarrheal illness. 3. Colonic diverticulosis without acute diverticulitis. 4. Involuting 1.2 cm right ovarian follicle. ACT 112: Negative or not required by law. The above report was generated using voice recognition software. It may contain grammatical, syntax or spelling errors. Electronically signed by: Omid Schulz M.D. 08/19/2023 2:23 PM Pelvis Ultrasound 08/19/23 12:48 US pelvic complete HISTORY: 33 years-old Female RLQ pain acute right-sided pelvic pain COMPARISON: CT of same day TECHNIQUE: Multiple real-time sonographic images of the deep pelvic structures were obtained transabdominally assessing grayscale appearance, color and spectral flow FINDINGS: 7.5 x 3.5 x 5.7 cm uterus. No myometrial mass lesion. Endometrium measures 5 mm. Patient declined the transvaginal portion of the study. No significant free pelvic fluid. Right ovary measures 3.5 x 2.0 x 2.6 cm. Left ovary measures 2.9 x 1.8 x 1.5 cm. Arterial inflow and venous outflow is present bilaterally. 1.7 cm involuting right ovarian follicle. IMPRESSION: 1. Small involuting right ovarian follicle. 2. No ovarian torsion. 3. Unremarkable sonographic appearance of the uterus and endometrium. ACT 112: Negative or not required by law. The above report was generated using voice recognition software. It may contain grammatical, syntax or spelling errors. Electronically signed by: Omid Schulz M.D. 08/19/2023 3:14 PM MDM Narrative The patient is a 33-year-old female who arrives to the emergency department for the above-stated complaint. Upon examination the patient has severe tenderness to palpation of the right lower quadrant, however she states the pain did begin in the right upper quadrant. She reports she has been following with gastroenterology, and recently had an abdominal ultrasound was negative for acute infectious or surgical process. The initial workup was performed including a saline lock CBC, CMP, lipase, CT of the abdomen and pelvis with contrast, urinalysis, ultrasound. CBC, CMP were reassuring, CT of the abdomen and pelvis did show a 1.7 cm involuting right ovarian follicle, ultrasound imaging was negative for ovarian torsion, and shows no mass or abnormality. Urinalysis was negative for infection. The patient is provided with an initial dose of IV morphine, as well as IV Zofran and 1 L of normal saline. Upon reassessment the patient states pain is still severe, and she was requiring a second dose of IV morphine. Upon further examination after second dose, the patient reports the pain is still not controlled at this time, despite the negative workup. At that time I spoke to the patient regarding admission for pain control, and further workup. She states the pain in the right lower quadrant is resolved, however the pain in the right upper quadrant is now more severe. Management was contacted for initiation of the admission process. I spoke with Lori Talbot PA-C regarding the patient care and the inability to control her pain with repeated doses of IV pain medication. Due to the disproportionate amount of pain, the patient will be admitted to the [facility] service at this time for further evaluation, and pain control. Impression & Plan Abdominal pain, Uncontrolled pain Discharge Plan Visit Data Chief Complaint: Abdominal Pain Stated Complaint: ABDOMINAL PAIN ED Provider: Marco Oconnor ED Midlevel Provider: Dian Downey Discharge Problem: Abdominal pain, Uncontrolled pain Patient Disposition: Admitted As Inpatient Discharge Instructions Interventions: ED Discharge Assessment Last Done: 08/19/23 20:35 Discharge Problem: Abdominal pain Qualifiers: Abdominal location: right upper quadrant Qualified Code(s): R10.11 - Right upper quadrant pain
[2023-08-19 13:18] LABS: Basophils # (auto) 0.02 K/uL (0.00-0.20); Basophils % (auto) 0.3 %; Eosinophils # (auto) 0.02 K/uL (0.00-0.50); Eosinophils % (auto) 0.3 %; Hematocrit (blood only) 44.9 % (37.0-47.0); Hemoglobin 15.8 g/dl (12.0-16.0); Immature Granulocytes # (auto) 0.02 K/uL (0.01-0.20); Immature Granulocytes % (auto) 0.3 %; Lymphocytes # (auto) 1.95 K/uL (1.20-3.40); Lymphocytes % (auto) 28.9 %; Mean Corpuscular Hgb Conc 35.2 g/dL (32.0-36.0); Mean Platelet Volume 8.4 fL (9.4-12.4); Monocytes # (auto) 0.55 K/uL (0.11-0.59); Monocytes % (auto) 8.2 %; Neutrophils # (auto) 4.18 K/uL (1.40-6.50); Platelet Count 423 K/uL (130-400); RDW Coefficient of Variation 12.7 % (11.5-14.5); RDW Standard Deviation 41.2 fL (36.4-46.3); White Blood Count 6.74 K/ul (4.8-10.8)
[2023-08-19] MEDS: MoRPHine SULFATE 4 MG/ML 1 ML CARP\\VIAL IV STA ×2 (13:18→14:59)
[2023-08-19] MEDS: SODIUM CHLORIDE 0.9% 1,000 ML IV STA (13:19)
[2023-08-19] MEDS: ONDANSETRON INJ 2 MG/ML 2 ML VIAL IV STA (13:19)
[2023-08-19 13:31] LABS: Alanine Aminotransferase 13 U/L (7-52); Albumin Globulin Ratio 1.4 (0.9-2); Albumin Level 4.7 gm/dl (3.4-5.0); Alkaline Phosphatase 122 U/L (34-104); Anion Gap 10 (3-11); Aspartate Aminotransferase 15 U/L (13-39); BUN Creatinine Ratio 13.9 (10-20); Bilirubin,Total 0.5 mg/dl (0.2-1.0); Blood Urea Nitrogen 11 mg/dl (6-23); Calcium 9.1 mg/dl (8.6-10.3); Carbon Dioxide 24 mmol/L (21-32); Chloride 102 mmol/L (98-107); Est GFR (African American) 112.4 ml/min; Globulin 3.4 gm/dl (2.5-4.0); Glucose 97 mg/dl (70-99(Fasting)); Lipase 12 U/L (11-82); Potassium 3.9 mmol/L (3.5-5.1); Sodium 136 mmol/L (136-145); Total Protein 8.1 gm/dl (6.0-8.3)
[2023-08-19 13:32] LABS: Pregnancy Test, Serum Negative (Negative)
[2023-08-19] MEDS: OPTIRAY 320 500ml IV ONE (14:01)
--- NOTE | 2023-08-19 14:25 | CT Scan Report ---
ABDOMEN AND PELVIS CT WITH IV CONTRAST CT DOSE: 1264.81 mGy.cm HISTORY: Acute right lower quadrant abdominal pain RLQ pain TECHNIQUE: Multiaxial CT images of the abdomen and pelvis were performed following the IV administrat ion of 93 cc of Optiray, A dose lowering technique was utilized adhering to the principles of ALARA. COMPARISON STUDY: December 17, 2021, MRI 11/12/2018. FINDINGS: The lung bases are clear. The spleen, gallbladder, pancreas, kidneys, and adrenal glands ar e within normal limits. Unchanged 1.6 cm lesion within the inferior right hepatic lobe on image 35 se dorian 2 which was described as a probable complex cyst on the prior MRI. Normal appendix. Mild colonic diverticulosis. Scattered small enlarged bowel air-fluid levels. No bowel wall thickening or obstruc tion. 1.2 cm involuting right ovarian follicle. Pelvic structures are otherwise unremarkable. No susp icious lytic or blastic osseous lesions. IMPRESSION: 1. No bowel obstruction or bowel wall thickening. Normal appendix. 2. Scattered large and small bowel air-fluid levels may be physiologic or represent a mild enteritis/ diarrheal illness. 3. Colonic diverticulosis without acute diverticulitis. 4. Involuting 1.2 cm right ovarian follicle. ACT 112: Negative or not required by law. The above report was generated using voice recognition software. It may contain grammatical, syntax o r spelling errors. Electronically signed by: Omid Schulz M.D. 08/19/2023 2:23 PM
[2023-08-19] MEDS: SODIUM CHLORIDE 0.9% 1,000 ML IV ONE (15:15)
--- NOTE | 2023-08-19 15:15 | Ultrasound Report ---
US pelvic complete HISTORY: 33 years-old Female RLQ pain acute right-sided pelvic pain COMPARISON: CT of same day TECHNIQUE: Multiple real-time sonographic images of the deep pelvic structures were obtained transabd ominally assessing grayscale appearance, color and spectral flow FINDINGS: 7.5 x 3.5 x 5.7 cm uterus. No myometrial mass lesion. Endometrium measures 5 mm. Patient declined the transvaginal portion of the study. No significant free pelvic fluid. Right ovary measures 3.5 x 2.0 x 2.6 cm. Left ovary measures 2.9 x 1.8 x 1.5 cm. Arterial inflow and venous outflow is present bilaterally. 1.7 cm involuting right ovarian follicle. IMPRESSION: 1. Small involuting right ovarian follicle. 2. No ovarian torsion. 3. Unremarkable sonographic appearance of the uterus and endometrium. ACT 112: Negative or not required by law. The above report was generated using voice recognition software. It may contain grammatical, syntax o r spelling errors. Electronically signed by: Omid Schulz M.D. 08/19/2023 3:14 PM
[2023-08-19 15:59] LABS: Appearance Urine Clear (Clear); Bilirubin Urine Negative (Negative); Blood Urine Negative (Negative); Color Urine Yellow; Glucose Urine UA Negative (Negative); Ketones Urine Trace (Negative); Leukocyte Esterase Urine Negative (Negative); Nitrite Urine Negative (Negative); Protein Urine Negative (Negative); Specific Gravity Urine > 1.045 (1.000-1.030); Urobilinogen Urine Negative (Negative); pH Urine 5.5 (4.5-7.5)
--- NOTE | 2023-08-19 16:04 | History & Physical Report ---
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 Was recently referred to GI and seen on 08/13 for chronic issues with abdominal pain and constipation. Abdominal ultrasound that showed 0.9 x 0.6 x 1.1 cm hyperechoic lesion, likely hemangioma but no cholelithiasis or evidence of acute cholecystitis. KUB revealed moderate constipation but no obstruction. Scheduled for gastric emptying scan at the end of the month. Prescribed Linzess and just received insurance auth, has not started. Presenting with persistent RUQ pain with associated nausea and diarrhea Afebrile, no leukocytosis, lytes WNL, alk phos 122 but tbili AST/ALT WNL. Lipase WNL, UA unremarkable CT abd/pelvis with : 1. No bowel obstruction or bowel wall thickening. Normal appendix. 2. Scattered large and small bowel air-fluid levels may be physiologic or represent a mild enteritis/diarrheal illness. 3. Colonic diverticulosis without acute diverticulitis. 4. Involuting 1.2 cm right ovarian follicle. Pelvic ultrasound with : 1.Small involuting right ovarian follicle. 2. No ovarian torsion. 3. Unremarkable sonographic appearance of the uterus and endometrium. Clear liquids as tolerated, stool cultures, c diff pending, routine GI consult, IV protonix BID, antiemetics PRN, trial of Bentyl Received 8mg of Morphine in ED with "some relief" Scheduled Tylenol, lidocaine patch, attempt to limit narcotic use Readdressed recommendation from GI for marijuana cessation Seizure disorder Stable, continue carbamazepine, phenytoin Dystonia Ambulates at home with wheelchair secondary to focal dystonia of leg Fall precautions Depression Chronic, stable. Continue duloxetine Anxiety Continue duloxetine, clonazepam DVT Ppx: SCDs for now Code status: FULL PCP: Julia Noland Dispo: observation med/surg Patient seen in collaboration with Dr. Feng. Please see addendum. I spent a total of 75 minutes coordinating, documenting, and providing care for this patient excluding time spent in the performance of separately billed services. History of Present Illness Chief Complaint: intractable abd pain Primary Care Provider: Arabella Noland DO This is a 33yo F with PMH of hepatic vein thrombosis, seizure disorder, anxiety, daily medical marijuana use, chronic back pain, wheelchair-bound secondary to f ocal dystonia of leg who presents with severe abdominal pain. Was recently referred to GI and seen on 08/13 for chronic issues with abdominal pain and constipation. Abdominal ultrasound that showed 0.9 x 0.6 x 1.1 cm hyperechoic lesion, likely hemangioma but no cholelithiasis or evidence of acute cholecystitis. KUB revealed moderate constipation but no obstruction. Patient was scheduled for gastric emptying scan but had to reschedule for the end of the month due to a conflict. GI recommended starting MiraLAX 1 capful twice daily, Dulcolax as needed and marijuana cessation recommended. Patient states pain in right upper quadrant has been more severe ever since abdominal ultrasound at the end of July and describes it as a constant burning pain exacerbated by movement and associated with persistent nausea. After trial of MiraLAX for the first time, patient vomited and has continued to have intermittent bilious emesis and inconsistent moving of her bowels but when she goes, it is liquid in consistency, nonbloody and usually has 2 episodes a day. Endorses chills but denies fevers. Has children at home who have had colds but no one else at home with GI illness. Was prescribed Linzess and got insurance approval but has not received yet and therefore not started. Admits she is continued to smoke marijuana daily despite recommendation for cessation. Has been admitted for severe abdominal pain and nausea multiple times in the past and seen by GI service in setting of non-specific colitis on imaging. Most recent EGD and colonoscopy were performed in 2019. EGD was normal and colonoscopy revealed internal hemorrhoids. During 2019 admission for persistent right upper quadrant discomfort, patient eventually received trigger injections by pain management with relief as well as dicyclomine 4 times daily. Symptoms resolved after discharge home until over the past month. Sister with ulcerative colitis and colon cancer. Allergies Allergy/AdvReac Type Severity Reaction Status Date / Time prednisone AdvReac Intermediate DILANTIN Verified 08/19/23 16:14 TOXICITY sulfamethoxazole AdvReac Intermediate BURNING,ALIX Verified 08/19/23 16:14 RRHEA trimethoprim AdvReac Intermediate BURNING,ALIX Verified 08/19/23 16:14 RRHEA Home Medications Medication Instructions Recorded Confirmed Type albuterol sulfate 90 mcg/actuation 2 puff inhalation Q4 PRN Wheezing 08/19/23 08/19/23 History aerosol inhaler carbamazepine 100 mg chewable 150 mg PO BID 08/19/23 08/19/23 History tablet carbamazepine 300 mg 600 mg PO AMHS 08/19/23 08/19/23 History capsule,extended release [id number] clonazepam 1 mg tablet 1 mg PO QID 08/19/23 08/19/23 History duloxetine 60 mg capsule,delayed 120 mg PO QAM 08/19/23 08/19/23 History release linaclotide 145 mcg capsule 145 mcg PO .NOT YET STARTED 08/19/23 08/19/23 History (Linzess) ondansetron 4 mg disintegrating 4 mg PO Q6H PRN Nausea 08/19/23 08/19/23 History tablet phenytoin sodium extended 100 mg 200 mg PO AMPM 08/19/23 08/19/23 History capsule Past Med/Surg History Medical History (Updated 08/19/23 @ 17:06 by Lori Talbot PA-C) Pituitary adenoma 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 Noncompliance with medication regimen PVT (portal vein thrombosis) Anxiety Dystonia Liver lesion, right lobe Hepatic vein thrombosis Asthma Restless leg syndrome Depression Seizure disorder Surgical History Hx of tubal ligation History of dental surgery Family History (Updated 08/19/23 @ 17:04 by Lori Talbot PA-C) Other Colorectal cancer Hypertension Social History Smoking Status: Never smoker Tobacco Type: Cigarettes Preferred Language: [place] Communication Ability: Effective 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 Physical Exam Physical Exam: General Appearance: WD/WN, vitals as above, NAD, sitting up in bed, in distress, crying intermittently during interview Head: normocephalic, atraumatic Eyes: normal inspection, PERRL, conjunctivae normal, anicteric sclerae ENT: external ear and nose normal, oropharynx normal Neck: normal visual inspection, trachea midline, no thyromegaly Respiratory: normal respiratory effort, lungs clear to auscultation, no wheeze, rales, rhonchi. No accessory muscle use Cardiovascular: tachycardic rate, regular rhythm, no murmur, normal peripheral pulses, no BLE edema. Vessels: no JVD Chest: normal inspection of chest Abdomen/GI: normal bowel sounds, soft, TTP RUQ, no hepatosplenomegaly Extremities/Musculoskeletal: no cyanosis or clubbing, extremities motor strength 5/5 Neurologic: PERRL, EOMI, accommodation nl, no face palsy, no dysarthria, CN's II-XI intact bilaterally and moves all extremities Psychiatric: A+Ox3, euthymic affect Skin: no rashes, normal color, warm/dry Results & Data Results & Data Vital Signs (Past 12 Hours) Vital Signs Temp Pulse Pulse Resp BP BP Pulse Ox 08/19/23 15:00 91 H 17 132/90 98 08/19/23 13:00 97 08/19/23 12:33 36.6 C 108 H 18 145/104 H 97 08/19/23 12:28 O2 Del Method 08/19/23 15:00 Room Air 08/19/23 13:00 Room Air 08/19/23 12:33 Room Air 08/19/23 12:28 Room Air Laboratory Results Short CBC 08/19/23 Range/Units 12:50 WBC 6.74 (4.8-10.8) K/ul Hgb 15.8 (12.0-16.0) g/dl Hct 44.9 (37.0-47.0) % Plt Count 423 H (130-400) K/uL BMP 08/19/23 12:50 Sodium 136 Potassium 3.9 Chloride 102 Carbon Dioxide 24 BUN 11 Creatinine 0.79 Glucose 97 Calcium 9.1 Liver Function 08/19/23 Range/Units 12:50 Total Bilirubin 0.5 (0.2-1.0) mg/dl AST 15 (13-39) U/L ALT 13 (7-52) U/L Alkaline Phosphatase 122 H (34-104) U/L Albumin 4.7 (3.4-5.0) gm/dl Urine 08/19/23 Range/Units 15:46 Urine Color Yellow Urine Appearance Clear (Clear) Urine pH 5.5 (4.5-7.5) Ur Specific [place] > 1.045 H (1.000-1.030) Urine Protein Negative (Negative) Urine Glucose (UA) Negative (Negative) Diagnostic Findings Abdomen/Pelvis CT 08/19/23 12:[address] WITH IV CONTRAST CT DOSE: 1264.81 mGy.cm HISTORY: Acute right lower quadrant abdominal pain RLQ pain TECHNIQUE: Multiaxial CT images of the abdomen and pelvis were performed following the IV administration of 93 cc of Optiray, A dose lowering technique was utilized adhering to the principles of ALARA. COMPARISON STUDY: December 17, 2021, MRI 11/12/2018. FINDINGS: The lung bases are clear. The spleen, gallbladder, pancreas, kidneys, and adrenal glands are within normal limits. Unchanged 1.6 cm lesion within the inferior right hepatic lobe on image 35 series 2 which was described as a probable complex cyst on the prior MRI. Normal appendix. Mild colonic diverticulosis. Scattered small enlarged bowel air-fluid levels. No bowel wall thickening or obstruction. 1.2 cm involuting right ovarian follicle. Pelvic structures are otherwise unremarkable. No suspicious lytic or blastic osseous lesions. IMPRESSION: 1. No bowel obstruction or bowel wall thickening. Normal appendix. 2. Scattered large and small bowel air-fluid levels may be physiologic or represent a mild enteritis/diarrheal illness. 3. Colonic diverticulosis without acute diverticulitis. 4. Involuting 1.2 cm right ovarian follicle. ACT 112: Negative or not required by law. The above report was generated using voice recognition software. It may contain grammatical, syntax or spelling errors. Electronically signed by: Omid Schulz M.D. 08/19/2023 2:23 PM Pelvis Ultrasound 08/19/23 12:48 US pelvic complete HISTORY: 33 years-old Female RLQ pain acute right-sided pelvic pain COMPARISON: CT of same day TECHNIQUE: Multiple real-time sonographic images of the deep pelvic structures were obtained transabdominally assessing grayscale appearance, color and spectral flow FINDINGS: 7.5 x 3.5 x 5.7 cm uterus. No myometrial mass lesion. Endometrium measures 5 mm. Patient declined the transvaginal portion of the study. No significant free pelvic fluid. Right ovary measures 3.5 x 2.0 x 2.6 cm. Left ovary measures 2.9 x 1.8 x 1.5 cm. Arterial inflow and venous outflow is present bilaterally. 1.7 cm involuting right ovarian follicle. IMPRESSION: 1. Small involuting right ovarian follicle. 2. No ovarian torsion. 3. Unremarkable sonographic appearance of the uterus and endometrium. ACT 112: Negative or not required by law. The above report was generated using voice recognition software. It may contain grammatical, syntax or spelling errors. Electronically signed by: Omid Schulz M.D. 08/19/2023 3:14 PM Supervising Physician Co-Signing Physician Notes Pt seen and examined by myself, Nori Feng MD on the day of service. Care was coordinated with Lori Talbot PA-C. 33yoF presenting with severe RUQ pain, N/V/D. Currently following with GI, due for gastric emptying study per records. Notes that she smokes marijuana daily but has been trying to cut back. On exam, tearful. Abdomen diffusely tender but more so in epigastrium and RUQ. Afebrile and tachycardic CT abd/pelvis noting possible enteritis, involuting ovarian follicle. RUQ Pain N/V/D Possible Enteritis Stool studies Encouraged marijuana cessation, discussion of possible associated cyclic hyperemesis syndrome. Pain Control, antiemetics GI consulted- appreciate further recs Otherwise as above. I spent a total [id number] coordinating, documenting, and providing care for this patient excluding time spent in the performance of separately billed services (2) Nausea & vomiting Vomiting type: unspecified Qualified Code(s): R11.2 - Nausea with vomiting, unspecified
[2023-08-19] MEDS: PANTOprazole 40 MG in SYRINGE 0 ML IV SCH (17:30)
[2023-08-19] MEDS: DICYCLOMINE HCL 10 MG CAP PO ONE (17:30)
[2023-08-19] MEDS: ENOXAPARIN INJ 120 MG/0.8 ML SYR SQ ONE (17:32)
[2023-08-19] MEDS: ACETAMINOPHEN 500 MG TAB PO SCH (17:57)
[2023-08-19] MEDS: LIDOCAINE 5% 1 PATCH TD SCH (17:58)
[2023-08-19] MEDS: clonazePAM 1 MG TAB PO STA (18:53)
[2023-08-19] MEDS ORDERED: ALBUTEROL HFA 8 GM INHALER INH PRN (21:08)
[2023-08-19] MEDS: HYDROmorphone INJ 0.5 MG/0.5 ML SYR IV PRN (21:43)
[2023-08-19] MEDS: PHENYTOIN SODIUM ER 100 MG CAP PO SCH (22:04)
[2023-08-19] MEDS: carBAMazepine 100 MG CHEW TAB PO SCH (22:06)
[2023-08-19] MEDS: clonazePAM 1 MG TAB PO SCH (22:13)
[2023-08-20 00:15] LABS: Amphetamines+Metham, Urine Neg (Neg); Barbiturates, Urine Neg (Neg); Benzodiazepine, Urine Neg (Neg); Cocaine, Urine Neg (Neg); MDMA (Ecstacy), Urine Neg (Neg); Marijuana, Urine Pos (Neg); Methadone, Urine Neg (Neg); Opiate, Urine Pos (Neg); Phencyclidine, Urine Neg (Neg)
[2023-08-20] MEDS: ONDANSETRON INJ 2 MG/ML 2 ML VIAL IV PRN (00:55)
[2023-08-20 08:14] LABS: Hematocrit (blood only) 39.4 % (37.0-47.0); Hemoglobin 13.3 g/dl (12.0-16.0); Mean Corpuscular Hemoglobin 30.4 pg (25.0-34.0); Mean Corpuscular Hgb Conc 33.8 g/dL (32.0-36.0); Mean Platelet Volume 8.4 fL (9.4-12.4); Platelet Count 305 K/uL (130-400); RDW Coefficient of Variation 12.6 % (11.5-14.5); RDW Standard Deviation 41.7 fL (36.4-46.3); Red Blood Count 4.38 M/uL (4.20-5.40); White Blood Count 4.85 K/ul (4.8-10.8)
[2023-08-20 08:34] LABS: Albumin Globulin Ratio 1.4 (0.9-2); Albumin Level 3.9 gm/dl (3.4-5.0); BUN Creatinine Ratio 9.5 (10-20); Bilirubin,Total 0.4 mg/dl (0.2-1.0); Calcium 8.1 mg/dl (8.6-10.3); Est GFR (African American) 134.7 ml/min; Est GFR (Non-African American) 116.2 ml/min; Globulin 2.7 gm/dl (2.5-4.0); Potassium 4.2 mmol/L (3.5-5.1); Total Protein 6.6 gm/dl (6.0-8.3)
[2023-08-20] MEDS: DULoxetine HCL 60 MG CAP PO SCH (09:16)
[2023-08-20] MEDS: DICYCLOMINE HCL 10 MG CAP PO PRN (09:58)
[2023-08-20 10:50] LABS: Troponin I High Sensitivity 2.7 pg/ml (0-14)
--- NOTE | 2023-08-20 13:10 | Gastrointestinal Consultation ---
Date of Consultation August 20, 2023 Assessment & Plan (1) Abdominal pain: (2) Nausea & vomiting: Plan 33-year-old female with chronic abdominal pain, nausea vomiting, history of hepatic vein thrombosis in 2019, treated with Coumadin, now off of this, admitted with recurrent nausea vomiting abdominal pain. Workup unremarkable including CTAP and labs very tearful describing her abdominal pain today, her abdomen is soft and when I was pressing on it, was nontender. - Check hepatic duplex to evaluate for any change in previous history of hepatic vein thrombosis - Antiemetics as needed Analgesia PRN Diet as tolerated Bowel regimen as she does have a history of constipation, MiraLAX if tolerated, trial of Linzess which she was approved for as an outpatient but has not yet started She does use marijuana, and the possibility of cannabis hyperemesis syndrome was discussed with her, but she states this is the only thing to help with her symptoms Thank you for allowing us to participate in the care of this patient. Please call with any acute changes, questions or concerns. Please see addendum below with additional recommendation from my supervising physician. Supervising Physician Co-Signing Physician Notes Agree with pe and plan as documented. History of Present Illness Attending Physician: Lorne Sofia MD History of Present Illness This a 33-year-old female with history of depression, previous portal vein thrombosis [place] w/ Coumadin, seizures and pseudoseizures, chronic abdominal pain, nausea and vomiting, chronic constipation, medical marijuana use follows with outpatient GI for these symptoms. Recently gastric emptying study was ordered but not yet completed. Came into the hospital with abdominal pain, nausea vomiting, and we are consulted for this reason. Recently tried to start Linzess but did not pick this up yet. Bowels move every few days, had been using senna and Miralax at home. At home she had been using Zofran but tries to avoid this as it does cause constipation Upon arrival, CTAP, labs including CBC, LFTs, renal function, lipase all unremarkable patient is quite tearful today regarding her abdominal pain. She states she is able to eat kind of a bland diet, although recently has been nauseated with even thinking about food intake. Did tolerate some clear liquids yesterday. Denies tobacco or alcohol use. She does use medical marijuana daily. Denies fevers chills, CP, SOB, melena or hematochezia, diarrhea, hematemesis. GES: ordered, not completed US ABD 2023: No cholelithiasis or evidence of acute cholecystitis. Probable right hepatic lobe hemangioma. Recommend follow-up with ultrasound in 6 months. KUB 2023: The bowel gas pattern is nonobstructive. No dilated loops of bowel are seen. Moderate colonic fecal material. There are no abnormal calcifications. Visualized osseous structures are unremarkable CTAP 2019: no acute findings MRI liver 11/12/18: see scan mention of a 14 mm inferior right lobe of the liver lesion, no angela dil, no suggestion of fatty liver, right PVT remnants, improved compared to 07/2018. RUQ US on 01/10/18 for RUQ pain and diarrhea: Unremarkable right upper quadrant ultrasound MRI/MRCP 11/12/18: residual portal vein thrombosis, no gallstones, no extrahepatic angela dil. EGD 2018: - White nummular lesions in esophageal mucosa. Cells for cytology obtained. - Normal stomach. Biopsied. - Normal examined duodenum. Biopsied. Colonoscopy 2018: The examined terminal ileum appeared normal. The background colonic mucosal appeared normal. Random biopsies were taken from the descending colon with a cold forceps for histology. Verification of patient identification for the specimen was done by the physician and nurse using the patient's name and medical record number. Internal hemorrhoids were found during retroflexion. Family history of GI malignancy: sister with UC and colon CA Allergies Allergy/AdvReac Type Severity Reaction Status Date / Time prednisone AdvReac Intermediate DILANTIN Verified 08/19/23 16:14 TOXICITY sulfamethoxazole AdvReac Intermediate BURNING,ALIX Verified 08/19/23 16:14 RRHEA trimethoprim AdvReac Intermediate BURNING,ALIX Verified 08/19/23 16:14 RRHEA Home Medications Medication Instructions Recorded Confirmed Type albuterol sulfate 90 mcg/actuation 2 puff inhalation Q4 PRN Wheezing 08/19/23 08/19/23 History aerosol inhaler carbamazepine 100 mg chewable 150 mg PO BID 08/19/23 08/19/23 History tablet carbamazepine 300 mg 600 mg PO AMHS 08/19/23 08/19/23 History capsule,extended release [id number] clonazepam 1 mg tablet 1 mg PO QID 08/19/23 08/19/23 History duloxetine 60 mg capsule,delayed 120 mg PO QAM 08/19/23 08/19/23 History release linaclotide 145 mcg capsule 145 mcg PO .NOT YET STARTED 08/19/23 08/19/23 History (Linzess) ondansetron 4 mg disintegrating 4 mg PO Q6H PRN Nausea 08/19/23 08/19/23 History tablet phenytoin sodium extended 100 mg 200 mg PO AMPM 08/19/23 08/19/23 History capsule 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 Noncompliance with medication regimen PVT (portal vein thrombosis) Anxiety Dystonia Liver lesion, right lobe Hepatic vein thrombosis Asthma Restless leg syndrome Depression Seizure disorder Surgical History Hx of tubal ligation History of dental surgery Family History (Updated 08/19/23 @ 17:04 by Lori Talbot PA-C) Other Colorectal cancer Hypertension Social History Smoking Status: Former smoker Tobacco Type: Cigarettes Second Hand Exposure: No; Do You Dip or Chew Tobacco: No; Tobacco Cessation Education Requested by Patient: No Hx Alcohol Use: No Hx Substance Use: Yes Last Used Substance: Days (ago) Last Used Substance Other:: medical marijuana Substance Use Type Other:: medical marijuana Preferred Language: [place]ian Communication Ability: Effective Woods Overseer Required: No Beliefs That Will Affect Care: None Current Living Situation: Spouse Current Living Situation Comment: 1 story house Other Information That Helps Us Care for You: No Feels Safe at Home: Yes Safety Concerns: Feels Safe At This Time Assistive Devices: Glasses and Wheelchair Review of Systems Review of Systems: All systems reviewed & are unremarkable except as noted in HPI & below Physical Exam Constitutional: well developed, well nourished and comfortable; no acute distress Eyes: Sclera anicteric, no conjunctival injection ENMT: moist mucous membranes, no pallor Neck: trachea midline supple Respiratory: normal respiratory effort, lungs clear to auscultation Cardiovascular: RRR, no murmur, no edema Gastrointestinal (Abdomen): normal bowel sounds, soft, nontender, no h epatosplenomegaly Inspection/Auscultation: abdomen not distended Skin: no rashes, warm and dry Neurologic: alert and oriented x 3, no obvious focal neuro deficit Psychiatric: normal mood and affect Results & Data Vital Signs (Past 12 Hours) Vital Signs Temp Pulse Resp BP Pulse Ox O2 Del Method 08/20/23 07:19 36.6 C 81 16 106/69 99 Room Air Laboratory Results 08/20/23 08/19/23 08/19/23 Range/Units 07:41 15:46 12:50 WBC 4.85 6.74 (4.8-10.8) K/ul RBC 4.38 5.10 (4.20-5.40) M/uL Hgb 13.3 15.8 (12.0-16.0) g/dl Hct 39.4 44.9 (37.0-47.0) % MCV 90.0 88.0 (80.0-100.0) fL MCH 30.4 31.0 (25.0-34.0) pg MCHC 33.8 35.2 (32.0-36.0) g/dL RDW Std Deviation 41.7 41.2 (36.4-46.3) fL RDW Coeff of Erika 12.6 12.7 (11.5-14.5) % Plt Count 305 423 H (130-400) K/uL MPV 8.4 L 8.4 L (9.4-12.4) fL Immature Gran % (Auto) 0.3 % Neut % (Auto) 62.0 % Lymph % (Auto) 28.9 % [place] % (Auto) 8.2 % Eos % (Auto) 0.3 % Baso % (Auto) 0.3 % Neut # (Auto) 4.18 (1.40-6.50) K/uL Lymph # (Auto) 1.95 (1.20-3.40) K/uL [place] # (Auto) 0.55 (0.11-0.59) K/uL Eos # (Auto) 0.02 (0.00-0.50) K/uL Baso # (Auto) 0.02 (0.00-0.20) K/uL Immature Gran # (Auto) 0.02 (0.01-0.20) K/uL Sodium 136 136 (136-145) mmol/L Potassium 4.2 3.9 (3.5-5.1) mmol/L Chloride 105 102 (98-107) mmol/L Carbon Dioxide 28 24 (21-32) mmol/L Anion Gap 3 10 (3-11) BUN 6 11 (6-23) mg/dl Creatinine 0.63 0.79 (0.6-1.2) mg/dl Est Cr Clr Drug Dosing 139.0 Not Reportable Est GFR ( Amer) 134.7 112.4 ml/min Est GFR (Non-Af Amer) 116.2 97.0 ml/min BUN/Creatinine Ratio 9.5 L 13.9 (10-20) Glucose 81 97 (70-99(Fasting)) mg/dl Calcium 8.1 L 9.1 (8.6-10.3) mg/dl Total Bilirubin 0.4 0.5 (0.2-1.0) mg/dl AST 13 15 (13-39) U/L ALT 9 13 (7-52) U/L Alkaline Phosphatase 97 122 H (34-104) U/L Troponin I High Sens 2.7 (0-14) pg/ml Total Protein 6.6 8.1 (6.0-8.3) gm/dl Albumin 3.9 4.7 (3.4-5.0) gm/dl Globulin 2.7 3.4 (2.5-4.0) gm/dl Albumin/Globulin Ratio 1.4 1.4 (0.9-2) Lipase 12 (11-82) U/L HCG, Qual Negative (Negative) Urine Color Yellow Urine Appearance Clear (Clear) Urine pH 5.5 (4.5-7.5) Ur Specific [place] > 1.045 H (1.000-1.030) Urine Protein Negative (Negative) Urine Glucose (UA) Negative (Negative) Urine Ketones Trace H (Negative) Urine Blood Negative (Negative) Urine Nitrite Negative (Negative) Urine Bilirubin Negative (Negative) Urine Urobilinogen Negative (Negative) Ur Leukocyte Esterase Negative (Negative) Urine Opiates Screen Pos H (Neg) U Codeine Confrm GC/MS Pending Ur Morphine (GC/MS) Pending Ur Hydrocodone (GC/MS) Pending Ur Norhydrocodone Pending Ur Noroxycodone Pending Urine Oxycodone (GC/MS) Pending U Oxymorphone GC/MS Pending Ur Methadone, Qual Neg (Neg) Ur Hydromorphone (GC/MS) Pending Urine Barbiturates Neg (Neg) Ur Phencyclidine (PCP) Neg (Neg) U Amphetamin/Meth Scrn Neg (Neg) MDMA (Ecstasy) Screen Neg (Neg) U Benzodiazepines Scrn Neg (Neg) Ur Cocaine Metabolite Neg (Neg) U Marijuana (THC) Screen Pos H (Neg) U Marijuana THC Carboxy Pending Drug Screen Comment Pending Diagnostic Findings CTAP: 1. No bowel obstruction or bowel wall thickening. Normal appendix. 2. Scattered large and small bowel air-fluid levels may be physiologic or represent a mild enteritis/diarrheal illness. 3. Colonic diverticulosis without acute diverticulitis. 4. Involuting 1.2 cm right ovarian follicle. US Pelvis: FINDINGS: 7.5 x 3.5 x 5.7 cm uterus. No myometrial mass lesion. Endometrium measures 5 mm. Patient declined the transvaginal portion of the study. No significant free pelvic fluid. Right ovary measures 3.5 x 2.0 x 2.6 cm. Left ovary measures 2.9 x 1.8 x 1.5 cm. Arterial inflow and venous outflow is present bilaterally. 1.7 cm involuting right ovarian follicle. IMPRESSION: 1. Small involuting right ovarian follicle. 2. No ovarian torsion. 3. Unremarkable sonographic appearance of the uterus and endometrium. (1) Abdominal pain Abdominal location: right upper quadrant Qualified Code(s): R10.11 - Right upper quadrant pain (2) Nausea & vomiting Vomiting type: unspecified Qualified Code(s): R11.2 - Nausea with vomiting, unspecified
--- NOTE | 2023-08-20 13:43 | Hospitalist Progress Note ---
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 Was recently referred to GI and seen on 08/13 for chronic issues with abdominal pain and constipation. Abdominal ultrasound that showed 0.9 x 0.6 x 1.1 cm hyperechoic lesion, likely hemangioma but no cholelithiasis or evidence of acute cholecystitis. KUB revealed moderate constipation but no obstruction. Scheduled for gastric emptying scan at the end of the month. Prescribed Linzess and just received insurance auth, has not started. Presenting with persistent RUQ pain with associated nausea and diarrhea Afebrile, no leukocytosis, lytes WNL, alk phos 122 but tbili AST/ALT WNL. Lipase WNL, UA unremarkable CT abd/pelvis with : 1. No bowel obstruction or bowel wall thickening. Normal appendix. 2. Scattered large and small bowel air-fluid levels may be physiologic or represent a mild enteritis/diarrheal illness. 3. Colonic diverticulosis without acute diverticulitis. 4. Involuting 1.2 cm right ovarian follicle. Pelvic ultrasound with : 1.Small involuting right ovarian follicle. 2. No ovarian torsion. 3. Unremarkable sonographic appearance of the uterus and endometrium. Patient received multiple dose of analgesics. She was also given 1 dose of therapeutic Lovenox and referred for admission for GI on consult; recommended recheck hepatic duplex to evaluate for hepatic vein thrombosis. Scheduled Tylenol, lidocaine patch, attempt to limit narcotic use Readdressed recommendation from GI for marijuana cessation Pain management consulted as per patient's request Seizure disorder Stable, continue carbamazepine, phenytoin Dystonia Ambulates at home with wheelchair secondary to focal dystonia of leg Fall precautions Depression Chronic, stable. Continue duloxetine Anxiety Continue duloxetine, clonazepam DVT Ppx: Heparin Code status: FULL PCP: Julia Noland Dispo: observation med/surg Please note the above document was generated using voice recognition software. It may contain grammatical, syntax or spelling errors. Any formal questions or concerns about the content, text or information contained within the body of this dictation should be directly addressed to the provider for clarification Admission and Anticipated Discharge Date Admission Date: August 19, 2023 Subjective Patient seen and examined at bedside. She reports right upper quadrant abdominal pain and discomfort. Vital signs stable; saturating well on room air Review of Systems Review of Systems: All systems reviewed & are unremarkable except as noted in Subjective Physical Exam Physical Exam: General Appearance: WD/WN, vitals as above, NAD, sitting up in bed, in distress, crying intermittently during interview Respiratory: normal respiratory effort, lungs clear to auscultation, no wheeze, rales, rhonchi. No accessory muscle use Cardiovascular: tachycardic rate, regular rhythm, no murmur, normal peripheral pulses, no BLE edema. Vessels: no JVD Chest: normal inspection of chest Abdomen/GI: Tenderness in right upper quadrant, bowel sounds present Extremities/Musculoskeletal: no cyanosis or clubbing, extremities motor strength 5/5 Neurologic: PERRL, EOMI, accommodation nl, no face palsy, no dysarthria, CN's II-XI intact bilaterally and moves all extremities Psychiatric: A+Ox3, euthymic affect Skin: no rashes, normal color, warm/dry Results & Data Results & Data Vital Signs (Past 12 Hours) Vital Signs Temp Pulse Resp BP Pulse Ox O2 Del Method 08/20/23 07:19 36.6 C 81 16 106/69 99 Room Air (2) Nausea & vomiting Vomiting type: unspecified Qualified Code(s): R11.2 - Nausea with vomiting, unspecified
[2023-08-20] MEDS: POLYETHYLENE (MIRALAX) 17 GM PACK PO SCH (14:36)
[2023-08-20] MEDS: ACETAMINOPHEN 1,000 MG/100 ML VIAL IV STA (14:37)
[2023-08-20 14:50] LABS: Adenovirus F 40/41 PCR Not Detected (NotDetected); Astrovirus PCR Not Detected (NotDetected); Campylobacter PCR Not Detected (NotDetected); Cryptosporidium PCR Not Detected (NotDetected); Cyclospora cayetanensis PCR Not Detected (NotDetected); Entamoeba histolytica PCR Not Detected (NotDetected); Enteroaggregative E.coli(EAEC) Not Detected (NotDetected); Enteropathogenic E.coli (EPEC) Not Detected (NotDetected); Enterotoxigenic E.coli (ETEC) Not Detected (NotDetected); Giardia lamblia PCR Not Detected (NotDetected); Plesiomonas shigelloides PCR Not Detected (NotDetected); Rotavirus A PCR Not Detected (NotDetected); Salmonella PCR Not Detected (NotDetected); Sapovirus PCR Not Detected (NotDetected); Shiga-like Toxin E.coli (STEC) Not Detected (NotDetected); Shigella/Enteroinvasive E.coli Not Detected (NotDetected); Vibrio cholerae PCR Not Detected (NotDetected); Vibrio species PCR Not Detected (NotDetected); Yersinia enterocolitica PCR Not Detected (NotDetected)
[2023-08-20 14:59] LABS: Norovirus GI/GII PCR DETECTED (NotDetected)
[2023-08-20] MEDS: linaCLOtide 72 MCG CAPSULE PO SCH (15:21)
--- NOTE | 2023-08-20 16:42 | Electrocardiogram Report ---
Test Reason : Blood Pressure : / mmHG Vent. Rate : 089 BPM Atrial Rate : 089 BPM P-R Int : 178 ms QRS Dur : 088 ms QT Int : 376 ms P-R-T Axes : 083 078 055 degrees QTc Int : 457 ms Poor data quality, interpretation may be adversely affected Normal sinus rhythm Nonspecific T wave abnormality Anterior leads Abnormal ECG When compared with ECG of 17-DEC-2021 19:21, T wave inversion more evident in Anterior leads Confirmed by Hood Milan ([id number]) on 08/20/2023 4:42:01 PM Referred By: REFERRED SELF Confirmed By:Hood Milan
[2023-08-21] MEDS: ACETAMINOPHEN 1,000 MG/100 ML VIAL IV PRN (00:58)
[2023-08-21 06:55] LABS: Basophils # (auto) 0.03 K/uL (0.00-0.20); Basophils % (auto) 0.6 %; Eosinophils # (auto) 0.04 K/uL (0.00-0.50); Eosinophils % (auto) 0.7 %; Hematocrit (blood only) 43.5 % (37.0-47.0); Hemoglobin 14.5 g/dl (12.0-16.0); Immature Granulocytes # (auto) 0.02 K/uL (0.01-0.20); Immature Granulocytes % (auto) 0.4 %; Lymphocytes # (auto) 2.06 K/uL (1.20-3.40); Mean Corpuscular Hemoglobin 30.2 pg (25.0-34.0); Mean Corpuscular Hgb Conc 33.3 g/dL (32.0-36.0); Mean Corpuscular Volume 90.6 fL (80.0-100.0); Mean Platelet Volume 8.3 fL (9.4-12.4); Monocytes % (auto) 7.4 %; Neutrophils # (auto) 2.87 K/uL (1.40-6.50); Neutrophils % (auto) 52.9 %; Platelet Count 342 K/uL (130-400); RDW Coefficient of Variation 12.4 % (11.5-14.5); RDW Standard Deviation 41.4 fL (36.4-46.3); White Blood Count 5.42 K/ul (4.8-10.8)
[2023-08-21 10:14] LABS: Calcium 8.6 mg/dl (8.6-10.3); Potassium 3.8 mmol/L (3.5-5.1)
[2023-08-21 10:19] LABS: BUN Creatinine Ratio 8.2 (10-20); Creatinine Clr Calc Pharmacy 143.5 ml/min; Est GFR (African American) 136.1 ml/min; Est GFR (Non-African American) 117.5 ml/min
--- NOTE | 2023-08-21 10:39 | Pain Management Consultation ---
Date of Consultation August 21, 2023 Assessment & Plan (1) RUQ abdominal pain: (2) Nausea & vomiting: Vomiting type: unspecified Qualified Code(s): R11.2 - Nausea with vomiting, unspecified (3) Dystonia: (4) Myofascial pain: Plan Patient has previously benefited from trigger point injections into the abdominal musculature in August 2018, wherein Dr. Harvey administered myoneural trigger point injections into the right upper quadrant transverse abdominis. 1. Recommended TPI's today into the area of concern. * The risks, benefits, and alternatives of the procedure were discussed in detail with the patient, and in full understanding of the procedure to be performed, the patient elects to proceed as discussed. * See procedure note for details. 2. Perform gentle massage to area over the next couple of days. 3. Avoid soaking the area for 48 hours. 4. No changes to current oral/IV medication regimen are made. 5. Will f/u w/ patient in 1-2 days to check on response to TPIs. * If no significant benefit, then would recommend seeing as an outpatient to potentially have her undergo an ultrasound guided TAP block procedure vs. further workup, possibly of the thoracolumbar spine. History of Present Illness Reason for Consultation: Abdominal pain Attending Physician: Lorne Sofia MD History of Present Illness Patient is a 33-year-old female with PMH of hepatic vein thrombosis, seizure disorder, anxiety, daily medical marijuana use, chronic back pain, wheelchair- bound secondary to focal dystonia of leg who presented to the [facility] ED on 08/19/2023 with severe RLQ abdominal pain that migrated to RUQ abdominal pain. She was having nausea, vomiting, and constipation, possibly secondary to the pain. There has been a bit of confusion as to where the patient's pain started when it first came about on this occasion, whether the RLQ or RUQ. However, she stated to myself that her pain initially started in her right inguinal and RLQ region. However, it is no longer there, and she now only has pain and tenderness to her abdominal RUQ. She is previously known to the pain management service back in August 2018 for similar complaints of pain. She did undergo trigger point injections by Dr. Harvey at that time, which seemed to resolve symptoms for seemingly many years, as this was 5 years ago. Patient localizes her pain to the right anterior costal margin and extending towards the right flank along the border of the ribcage. She says that she has been concerned about her liver due to the location of her pain. When she feels the area it feels swollen and hard in certain spots. When asked about any back pain, she does say there is a history of some thoracolumbar type pain, but there never seemed to be any association with her current symptoms. She says that the lower extremity dystonia affects her left leg much more than the right. Case discussed with Dr. Harvey. Allergies Allergy/AdvReac Type Severity Reaction Status Date / Time prednisone AdvReac Intermediate DILANTIN Verified 08/19/23 16:14 TOXICITY sulfamethoxazole AdvReac Intermediate BURNING,ALIX Verified 08/19/23 16:14 RRHEA trimethoprim AdvReac Intermediate BURNING,ALIX Verified 08/19/23 16:14 RRHEA Home Medications Medication Instructions Recorded Confirmed Type albuterol sulfate 90 mcg/actuation 2 puff inhalation Q4 PRN Wheezing 08/19/23 08/19/23 History aerosol inhaler carbamazepine 100 mg chewable 150 mg PO BID 08/19/23 08/19/23 History tablet carbamazepine 300 mg 600 mg PO AMHS 08/19/23 08/19/23 History capsule,extended release [id number] clonazepam 1 mg tablet 1 mg PO QID 08/19/23 08/19/23 History duloxetine 60 mg capsule,delayed 120 mg PO QAM 08/19/23 08/19/23 History release linaclotide 145 mcg capsule 145 mcg PO .NOT YET STARTED 08/19/23 08/19/23 History (Linzess) ondansetron 4 mg disintegrating 4 mg PO Q6H PRN Nausea 08/19/23 08/19/23 History tablet phenytoin sodium extended 100 mg 200 mg PO AMPM 08/19/23 08/19/23 History capsule Pain History Pain Location Full Body Front + Back: 2 1. 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 Noncompliance with medication regimen PVT (portal vein thrombosis) Anxiety Dystonia Liver lesion, right lobe Hepatic vein thrombosis Asthma Restless leg syndrome Depression Seizure disorder Surgical History Hx of tubal ligation History of dental surgery Family History (Updated 08/19/23 @ 17:04 by Lori Talbot PA-C) Other Colorectal cancer Hypertension Social History Smoking Status: Former smoker Tobacco Type: Cigarettes Second Hand Exposure: No; Do You Dip or Chew Tobacco: No; Tobacco Cessation Education Requested by Patient: No Hx Alcohol Use: No Hx Substance Use: Yes Last Used Substance: Days (ago) Last Used Substance Other:: medical marijuana Substance Use Type Other:: medical marijuana Preferred Language: Eritrean Communication Ability: Effective Asset Protection Agent Required: No Beliefs That Will Affect Care: None Current Living Situation: Spouse Current Living Situation Comment: 1 story house Other Information That Helps Us Care for You: No Feels Safe at Home: Yes Safety Concerns: Feels Safe At This Time Assistive Devices: None Physical Exam 2 Physical Exam: GENERAL: Speech and cognition is intact. Mood and affect is appropriate. Does not appear in acute distress. HEAD: Normocephalic; atraumatic. NECK: Trachea is midline. CHEST: Regular chest respiration and excursion. EXTREMITIES: No TTP. Distal sensation and pulses intact bilaterally. BACK: + TTP right thoracolumbar junction paraspinals.Inspection/palpation demonstrates some loss of normal lumbar lordotic curvature. NEURO: CN II-XII grossly intact with no focal deficits noted. Awake, alert, and oriented x 3. Distal sensation of lower legs intact; diminished on the left. SKIN: No lesions, erythema, or rashes noted. ABDOMEN: + TTP RUQ at costal margin. Non-tender LUQ, LLQ, RLQ. LOWER EXTREMITIES: R Hip flexion 5/5; knee extension 5/5; knee flexion 5/5; ankle dorsiflexion 5/5; ankle plantar flexion 5/5; EHL 5/5 L Hip flexion 5/5; knee extension 5/5; knee flexion 5/5; ankle dorsiflexion 4+/5; ankle plantar flexion 5/5; EHL 5/5 Gastrointestinal (Abdomen): Inspection/Auscultation: abdomen normal to inspection; abdomen not distended and no abdominal wall ecchymosis Results (Pain Clinic) Laboratory Review Additional Comments: Laboratory Results - last 48 hr 08/19/23 08/19/23 08/20/23 12:50 15:46 07:41 WBC 6.74 4.85 RBC 5.10 4.38 Hgb 15.8 13.3 Hct 44.9 39.4 MCV 88.0 90.0 MCH 31.0 30.4 MCHC 35.2 33.8 RDW Std Deviation 41.2 41.7 RDW Coeff of Erika 12.7 12.6 Plt Count 423 H 305 MPV 8.4 L 8.4 L Immature Gran % (Auto) 0.3 Neut % (Auto) 62.0 Lymph % (Auto) 28.9 [place] % (Auto) 8.2 Eos % (Auto) 0.3 Baso % (Auto) 0.3 Neut # (Auto) 4.18 Lymph # (Auto) 1.95 [place] # (Auto) 0.55 Eos # (Auto) 0.02 Baso # (Auto) 0.02 Immature Gran # (Auto) 0.02 Sodium 136 136 Potassium 3.9 4.2 Chloride 102 105 Carbon Dioxide 24 28 Anion Gap 10 3 BUN 11 6 Creatinine 0.79 0.63 Est Cr Clr Drug Dosing Not Reportable 139.0 Est GFR ( Amer) 112.4 134.7 Est GFR (Non-Af Amer) 97.0 116.2 BUN/Creatinine Ratio 13.9 9.5 L Glucose 97 81 Calcium 9.1 8.1 L Total Bilirubin 0.5 0.4 AST 15 13 ALT 13 9 Alkaline Phosphatase 122 H 97 Troponin I High Sens 2.7 Total Protein 8.1 6.6 Albumin 4.7 3.9 Globulin 3.4 2.7 Albumin/Globulin Ratio 1.4 1.4 Lipase 12 HCG, Qual Negative Urine Color Yellow Urine Appearance Clear Urine pH 5.5 Ur Specific [place] > 1.045 H Urine Protein Negative Urine Glucose (UA) Negative Urine Ketones Trace H Urine Blood Negative Urine Nitrite Negative Urine Bilirubin Negative Urine Urobilinogen Negative Ur Leukocyte Esterase Negative Stl C. cayetanensis PCR Stool Rotavirus A PCR Stl Adenov F 40/41 PCR Stool Astrovirus (PCR) Stool Campylobacter PCR Stl C. diff Tox B Gene Stool Cryptosporidium PCR Stl E.coli Shiga Tox PCR Stl Enterotoxigenic E PCR Stool EPEC (PCR) Stool EAEC (PCR) Stl E. histolytica PCR Stool Giardia Lamblia PCR Stool Salmonella PCR Stool Sapovirus (PCR) Stl P. shigelloides PCR Stl Shigella/EIEC PCR St Y.enterocolitica PCR Stool Vibrio (PCR) Stl Vibrio cholerae PCR Stl Norovirus GI/GII PCR Urine Opiates Screen Pos H Ur Methadone, Qual Neg Urine Barbiturates Neg Ur Phencyclidine (PCP) Neg U Amphetamin/Meth Scrn Neg MDMA (Ecstasy) Screen Neg U Benzodiazepines Scrn Neg Ur Cocaine Metabolite Neg U Marijuana (THC) Screen Pos H 08/20/23 08/21/23 13:05 06:15 WBC 5.42 RBC 4.80 Hgb 14.5 Hct 43.5 MCV 90.6 MCH 30.2 MCHC 33.3 RDW Std Deviation 41.4 RDW Coeff of Erika 12.4 Plt Count 342 MPV 8.3 L Immature Gran % (Auto) 0.4 Neut % (Auto) 52.9 Lymph % (Auto) 38.0 [place] % (Auto) 7.4 Eos % (Auto) 0.7 Baso % (Auto) 0.6 Neut # (Auto) 2.87 Lymph # (Auto) 2.06 [place] # (Auto) 0.40 Eos # (Auto) 0.04 Baso # (Auto) 0.03 Immature Gran # (Auto) 0.02 Sodium 136 Potassium 3.8 Chloride 105 Carbon Dioxide 22 Anion Gap 9 BUN 5 L Creatinine 0.61 Est Cr Clr Drug Dosing 143.5 Est GFR ( Amer) 136.1 Est GFR (Non-Af Amer) 117.5 BUN/Creatinine Ratio 8.2 L Glucose 80 Calcium 8.6 Total Bilirubin AST ALT Alkaline Phosphatase Troponin I High Sens Total Protein Albumin Globulin Albumin/Globulin Ratio Lipase HCG, Qual Urine Color Urine Appearance Urine pH Ur Specific [place] Urine Protein Urine Glucose (UA) Urine Ketones Urine Blood Urine Nitrite Urine Bilirubin Urine Urobilinogen Ur Leukocyte Esterase Stl C. cayetanensis PCR Not Detected Stool Rotavirus A PCR Not Detected Stl Adenov F 40/41 PCR Not Detected Stool Astrovirus (PCR) Not Detected Stool Campylobacter PCR Not Detected Stl C. diff Tox B Gene Negative Cdiff Gene Stool Cryptosporidium PCR Not Detected Stl E.coli Shiga Tox PCR Not Detected Stl Enterotoxigenic E PCR Not Detected Stool EPEC (PCR) Not Detected Stool EAEC (PCR) Not Detected Stl E. histolytica PCR Not Detected Stool Giardia [place]lia PCR Not Detected Stool Salmonella PCR Not Detected Stool Sapovirus (PCR) Not Detected Stl P. shigelloides PCR Not Detected Stl Shigella/EIEC PCR Not Detected St Y.enterocolitica PCR Not Detected Stool Vibrio (PCR) Not Detected Stl Vibrio cholerae PCR Not Detected Stl Norovirus GI/GII PCR DETECTED A* Urine Opiates Screen Ur Methadone, Qual Urine Barbiturates Ur Phencyclidine (PCP) U Amphetamin/Meth Scrn MDMA (Ecstasy) Screen U Benzodiazepines Scrn Ur Cocaine Metabolite U Marijuana (THC) Screen Diagnostic Review CT Findings: Abdomen/Pelvis CT 08/19/23 12:[address] WITH IV CONTRAST CT DOSE: 1264.81 mGy.cm HISTORY: Acute right lower quadrant abdominal pain RLQ pain TECHNIQUE: Multiaxial CT images of the abdomen and pelvis were performed following the IV administration of 93 cc of Optiray, A dose lowering technique was utilized adhering to the principles of ALARA. COMPARISON STUDY: December 17, 2021, MRI 11/12/2018. FINDINGS: The lung bases are clear. The spleen, gallbladder, pancreas, kidneys, and adrenal glands are within normal limits. Unchanged 1.6 cm lesion within the inferior right hepatic lobe on image 35 series 2 which was described as a probable complex cyst on the prior MRI. Normal appendix. Mild colonic diverticulosis. Scattered small enlarged bowel air-fluid levels. No bowel wall thickening or obstruction. 1.2 cm involuting right ovarian follicle. Pelvic structures are otherwise unremarkable. No suspicious lytic or blastic osseous lesions. IMPRESSION: 1. No bowel obstruction or bowel wall thickening. Normal appendix. 2. Scattered large and small bowel air-fluid levels may be physiologic or represent a mild enteritis/diarrheal illness. 3. Colonic diverticulosis without acute diverticulitis. 4. Involuting 1.2 cm right ovarian follicle. ACT 112: Negative or not required by law. The above report was generated using voice recognition software. It may contain grammatical, syntax or spelling errors. Electronically signed by: Omid Schulz M.D. 08/19/2023 2:23 PM Other Findings: Pelvis Ultrasound 08/19/23 12:48 US pelvic complete HISTORY: 33 years-old Female RLQ pain acute right-sided pelvic pain COMPARISON: CT of same day TECHNIQUE: Multiple real-time sonographic images of the deep pelvic structures were obtained transabdominally assessing grayscale appearance, color and spectral flow FINDINGS: 7.5 x 3.5 x 5.7 cm uterus. No myometrial mass lesion. Endometrium measures 5 mm. Patient declined the transvaginal portion of the study. No significant free pelvic fluid. Right ovary measures 3.5 x 2.0 x 2.6 cm. Left ovary measures 2.9 x 1.8 x 1.5 cm. Arterial inflow and venous outflow is present bilaterally. 1.7 cm involuting right ovarian follicle. IMPRESSION: 1. Small involuting right ovarian follicle. 2. No ovarian torsion. 3. Unremarkable sonographic appearance of the uterus and endometrium. ACT 112: Negative or not required by law. The above report was generated using voice recognition software. It may contain grammatical, syntax or spelling errors. Electronically signed by: Omid Schulz M.D. 08/19/2023 3:14 PM
--- NOTE | 2023-08-21 10:43 | Procedure Note ---
Procedure Note Date of Service August 21, 2023 Note TRIGGER POINT INJECTION Diagnosis: Myoneural trigger points/myofascial pain Injection Site: Right upper quadrant transverse abdominis Performed By: Marco Robbins PA-C Medications used: Ropivacaine 0.5% -5 mL Kenalog 40 mg/mL - 1 mL Toradol 30 mg/mL - 2 mL Prior to starting, the diagnosis and the procedure was reviewed with the patient in detail. Possible risks and complications including infection, bleeding, damage to surrounding structures and increased pain were discussed. Alternative therapies were also reviewed. All questions were answered and they agreed to proceed. Informed consent was obtained. Allergies and medication list was reviewed. The patient was placed in supine position. Immediately prior to starting the procedure, a time out was conducted with the staff and the patient where the patient was identified, proposed procedure was verified, consent was reviewed and the proper site for the planned procedure was identified. Patient was not given any intravenous sedation and constant verbal contact was maintained throughout the procedure. On examination, no signs of skin breakdown or infection were noted at the injection sites. The site was cleansed with ChloraPrep followed by alcohol. Sterile technique was used throughout the procedure. After identifying skeletal landmarks, the right upper quadrant abdominal musculature was injected at 4 separate locations with approximately 2 mL, from a solution containing 5 mL of 0.5% Ropivacaine MPF, 2 mL of 30 mg/mL Toradol, and 1 mL of 40 mg/mL Kenalog. Aspiration was negative. Hemostasis noted. Patient tolerated the procedure uneventfully without complications. Patient was observed briefly afterwards and left to the care of the bedside nurse. Coding
--- NOTE | 2023-08-21 11:44 | Gastroenterology Progress Note ---
Date of Service August 21, 2023 Assessment & Plan (1) Abdominal pain: (2) Nausea & vomiting: Plan 33-year-old female with chronic abdominal pain, nausea vomiting, history of hepatic vein thrombosis in 2019, treated with Coumadin, now off of this, admitted with recurrent nausea vomiting abdominal pain. Workup unremarkable including CTAP and labs. Overnight + for Norovirus. No further diarrhea; pt afebrile soft abd, t tolerating her diet. - Hepatic Doppler ordered yesterday to check patency of hepatic vein; I was informed by radiology that hepatic vein appeared patent on CT from 08/18; Doppler was not obtained; I did ask radiology to amend CT report from 08/18 - Antiemetics as needed Analgesia PRN Advance diet as tolerated She does use marijuana, and the possibility of cannabis hyperemesis syndrome was discussed with her, but she states this is the only thing to help with her symptoms - GI will sign off, please call with questions Thank you for allowing us to participate in the care of this patient. Please call with any acute changes, questions or concerns. Please see addendum below with additional recommendation from my supervising physician. Admission and Anticipated Discharge Date Admission Date: August 19, 2023 Supervising Physician Co-Signing Physician Notes Agree with pe and plan as documented. Very emotional- crying on yesterday and today's examination not with pe but just in general. Agree with further plan of care as documented. Subjective Patient seen and examined, chart reviewed. Pt had loose stool, + for Norovirus. No further diarrhea today. No vomiting. Tolerating liquids. Denies melena, hematochezia, hematemesis, fever, chills. Review of Systems Review of Systems: All systems reviewed & are unremarkable except as noted in HPI & below Physical Exam Constitutional: well developed, well nourished and comfortable; no acute distress Neck: trachea midline Respiratory: normal resp effort Gastrointestinal (Abdomen): Inspection/Auscultation: abdomen not distended soft, mild TTP RUQ, no rebound, guarding Skin: no rashes, warm and dry Results & Data Vital Signs (Past 12 Hours) Vital Signs Temp Pulse Resp BP Pulse Ox O2 Del Method 08/21/23 06:12 36.6 C 76 14 125/83 98 Room Air Laboratory Results 08/21/23 08/20/23 Range/Units 06:15 13:05 WBC 5.42 (4.8-10.8) K/ul RBC 4.80 (4.20-5.40) M/uL Hgb 14.5 (12.0-16.0) g/dl Hct 43.5 (37.0-47.0) % MCV 90.6 (80.0-100.0) fL MCH 30.2 (25.0-34.0) pg MCHC 33.3 (32.0-36.0) g/dL RDW Std Deviation 41.4 (36.4-46.3) fL RDW Coeff of Erika 12.4 (11.5-14.5) % Plt Count 342 (130-400) K/uL MPV 8.3 L (9.4-12.4) fL Immature Gran % (Auto) 0.4 % Neut % (Auto) 52.9 % Lymph % (Auto) 38.0 % Corson % (Auto) 7.4 % Eos % (Auto) 0.7 % Baso % (Auto) 0.6 % Neut # (Auto) 2.87 (1.40-6.50) K/uL Lymph # (Auto) 2.06 (1.20-3.40) K/uL Corson # (Auto) 0.40 (0.11-0.59) K/uL Eos # (Auto) 0.04 (0.00-0.50) K/uL Baso # (Auto) 0.03 (0.00-0.20) K/uL Immature Gran # (Auto) 0.02 (0.01-0.20) K/uL Sodium 136 (136-145) mmol/L Potassium 3.8 (3.5-5.1) mmol/L Chloride 105 (98-107) mmol/L Carbon Dioxide 22 (21-32) mmol/L Anion Gap 9 (3-11) BUN 5 L (6-23) mg/dl Creatinine 0.61 (0.6-1.2) mg/dl Est Cr Clr Drug Dosing 143.5 ml/min Est GFR ( Amer) 136.1 ml/min Est GFR (Non-Af Amer) 117.5 ml/min BUN/Creatinine Ratio 8.2 L (10-20) Glucose 80 (70-99(Fasting)) mg/dl Calcium 8.6 (8.6-10.3) mg/dl Stl C. cayetanensis PCR Not Detected (NotDetected) Stool Rotavirus A PCR Not Detected (NotDetected) Stl Adenov F 40/41 PCR Not Detected (NotDetected) Stool Astrovirus (PCR) Not Detected (NotDetected) Stool Campylobacter PCR Not Detected (NotDetected) Stl C. diff Tox B Gene Negative Cdiff Gene (Neg) Stool Cryptosporidium PCR Not Detected (NotDetected) Stl E.coli Shiga Tox PCR Not Detected (NotDetected) Stl Enterotoxigenic E PCR Not Detected (NotDetected) Stool EPEC (PCR) Not Detected (NotDetected) Stool EAEC (PCR) Not Detected (NotDetected) Stl E. histolytica PCR Not Detected (NotDetected) Stool Giardia Lamblia PCR Not Detected (NotDetected) Stool Salmonella PCR Not Detected (NotDetected) Stool Sapovirus (PCR) Not Detected (NotDetected) Stl P. shigelloides PCR Not Detected (NotDetected) Stl Shigella/EIEC PCR Not Detected (NotDetected) St Y.enterocolitica PCR Not Detected (NotDetected) Stool Vibrio (PCR) Not Detected (NotDetected) Stl Vibrio cholerae PCR Not Detected (NotDetected) Stl Norovirus GI/GII PCR DETECTED A* (NotDetected) (1) Abdominal pain Abdominal location: right upper quadrant Qualified Code(s): R10.11 - Right upper quadrant pain (2) Nausea & vomiting Vomiting type: unspecified Qualified Code(s): R11.2 - Nausea with vomiting, unspecified
--- NOTE | 2023-08-21 17:04 | Hospitalist Progress Note ---
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 Was recently referred to GI and seen on 08/13 for chronic issues with abdominal pain and constipation. Abdominal ultrasound that showed 0.9 x 0.6 x 1.1 cm hyperechoic lesion, likely hemangioma but no cholelithiasis or evidence of acute cholecystitis. KUB revealed moderate constipation but no obstruction. Scheduled for gastric emptying scan at the end of the month. Prescribed Linzess and just received insurance auth, has not started. Presenting with persistent RUQ pain with associated nausea and diarrhea CT abd/pelvis with : 1. No bowel obstruction or bowel wall thickening. Normal appendix. 2. Scattered large and small bowel air-fluid levels may be physiologic or represent a mild enteritis/diarrheal illness. 3. Colonic diverticulosis without acute diverticulitis. 4. Involuting 1.2 cm right ovarian follicle. Pelvic ultrasound with : 1.Small involuting right ovarian follicle. 2. No ovarian torsion. 3. Unremarkable sonographic appearance of the uterus and endometrium. Scheduled Tylenol, lidocaine patch, attempt to limit narcotic use Pain management consulted; patient received trigger point injection on August 21, 2023 Right upper quadrant ultrasound ordered given persistent pain Seizure disorder Stable, continue carbamazepine, phenytoin Dystonia Ambulates at home with wheelchair secondary to focal dystonia of leg Fall precautions Depression Chronic, stable. Continue duloxetine Anxiety Continue duloxetine, clonazepam DVT Ppx: Heparin Code status: FULL PCP: Julia Noland Dispo: Admitted as inpatient. Right upper quadrant ultrasound pending given continued right upper quadrant pain. Please note the above document was generated using voice recognition software. It may contain grammatical, syntax or spelling errors. Any formal questions or concerns about the content, text or information contained within the body of this dictation should be directly addressed to the provider for clarification Admission and Anticipated Discharge Date Admission Date: August 19, 2023 Subjective Patient continues to report right upper quadrant pain. Vitals remained stable. Review of Systems Review of Systems: All systems reviewed & are unremarkable except as noted in Subjective Physical Exam Physical Exam: Constitutional: Alert oriented x 3 Respiratory: normal respiratory effort, lungs clear to auscultation, no wheeze, rales, rhonchi. Normal insp/exp effort, no accessory muscle use Cardiovascular: RRR, no murmur, no edema Vessels: no JVD or carotid bruit Chest: normal inspection of chest Abdomen: Tenderness in right upper quadrant. bowel sounds present Musculoskeletal: no cyanosis or clubbing, extremities motor strength 5/5 Skin: no rashes, warm and dry normal turgor Neurologic: PERRL, EOMI, accommodation nl, no face palsy, no dysarthria CN's II- XI intact bilaterally and moves all extremities Psychiatric: A+Ox3, euthymic affect Results & Data Results & Data Vital Signs (Past 12 Hours) Vital Signs Temp Pulse Resp BP BP Pulse Ox O2 Del Method 08/21/23 15:12 37.1 C 84 16 116/78 97 Room Air 08/21/23 06:12 36.6 C 76 14 125/83 98 Room Air (2) Nausea & vomiting Vomiting type: unspecified Qualified Code(s): R11.2 - Nausea with vomiting, unspecified
--- OUTSIDE RECORDS SUMMARY | 2023-08-22 06:17 | External Medical Summary | Summary of Care ---
Author Name Unknown Organization [facility] Address [address] [place] [address] Phone [phone] Care Team Providers Care Assignment Desk Assistant Name Role Phone Ludin Arabellazully Dumont DO Primary Care Provider Reason for Visit * Reason Comments eRx-Medication Refill Encounter Details Date Type Department Care Team (Late st Contact Info) Description 08/18/2023 Refill Neurology [facility] [place] [address] [place] [address] Ld Chester MD [address] [place] [address] Idiopathic torsion dystonia Allergies Active Allergy Reactions Criticality Noted Date Comments Sulfamethoxazole-Trimethopr im Diarrhea High 11/16/2014 Sulfamethoxazole-Trimethopr im Diarrhea 05/24/2018 Nausea, vomiting and diarrhea, abdominal pain Prednisone 09/27/2015 Does not gagandeep when on dilantin documented as of this encounter (statuses as of 08/20/2023) Medications Medication Sig Dispensed Refills Start Date End Date Status Albuterol Sulfate HFA 108 (90 Base) MCG/ACT Inhalation Aerosol SolutionIndicatio ns:Complicated bronchitis Inhale by mouth 2 Puffs every 4 hours as needed for Wheezing. 18 g 5 2 Active Senna 8.6 MG Oral TabletIndications :Constipation, unspecified constipation type TAKE 1 TAB BY MOUTH 2 TIMES A DAY. 60 Tablet 3 2 Active Ipratropium-Albut roddy 0.5-2.5 (3) MG/3ML Inhalation Solution (Duoneb) Inhale 3 mL via nebulizer every 6 hours as needed for Shortness of Breath. 360 mL 3 3 Active Additional Information Patient not taking.Reported on 08/13/2023 carBAMazepine 100 MG Oral Tablet Chewable (Tegretol)Indicat ions:Generalized convulsive epilepsy without intractable epilepsy (HCC) Chew 1 & 1/2 tablets by mouth twice daily with the 300 mg tabs 90 Tablet 5 3 Active Phenytoin Sodium Extended 100 MG [...] AT BEDTIME 360 Capsule 1 4 Active linaCLOtide 145 MCG Oral Capsule (Linzess) Take 1 Capsule by mouth daily before breakfast. 90 Capsule 1 4 Active clonazePAM 1 MG Oral Tablet (KlonoPIN)Indicat ions:Idiopathic torsion dystonia TAKE 1 TABLET BY MOUTH 4 TIMES DAILY (MORNING,NOON,EV ENING,BEDTIME) 120 Tablet 0 4 Active clonazePAM 1 MG Oral Tablet (KlonoPIN)Indicat ions:Idiopathic torsion dystonia Take 1 Tablet by mouth in the morning and 1 Tablet at noon and 1 Tablet in the evening and 1 Tablet before bedtime. 120 Tablet 2 3 08/20/19 24 Discontinued documented as of this encounter (statuses as of 08/20/2023) Active Problems Problem Noted Date Diagnosed Date 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 Medical marijuana use 03/15/2018 Overview: Since 11/02--vaporiser pen Diarrhea 01/09/2018 Chronic low back pain 10/05/2015 Seizure disorder 10/05/2015 Anxiety state 10/05/2015 Dilantin toxicity 10/05/2015 Myoclonus 07/28/2005 Overview: possible documented as of this encounter (statuses as of 08/20/2023) Resolved Problems Problem Noted Date Diagnosed Date [...] as of this encounter (statuses as of 08/20/2023) Immunizations Name Administration Dates Next Due COVID-19 mRNA, LNP-s, No Pre serve, 2-Dose Series ([facility]) 11/03/2020,10/13/2020 Seasonal Influenza, PF, 6 M & [...] encounter Miscellaneous Notes * Telephone Encounter - Helen Gibson MD - 08/20/2023 8:01 AM EST Signed Prescriptions: Disp Refills clonazePAM 1 MG Oral Tablet (KlonoPIN) 120 Ta*0 Sig: TAKE 1 TABLET BY MOUTH 4 TIMES DAILY (MORNING,NOON,EVENING,BEDTIME) Authorizing Provider: HELEN GIBSON * Telephone Encounter - Tammy Lizama LPN - 08/20/2023 7:40 AM EST Pending Prescriptions: Disp Refills clonazePAM 1 MG Oral Tablet 120 Ta*0 Sig: TAKE 1 TABLET BY MOUTH 4 TIMES DAILY (MORNING,NOON,EVENING,BEDTIME) * Telephone Encounter - Raúl Farrell two - 08/20/2023 6:33 AM ESTPending Prescriptions: Disp Refills clonazePAM 1 MG Oral Tablet 120 Ta*0 Sig: TAKE 1 TABLET BY MOUTH 4 TIMES DAILY (MORNING,NOON,EVENING,BEDTIME) * Telephone Encounter - Raúl Farrell two - 08/20/2023 6:31 AM EST Did you pend patient's preferred pharmacy and medication before forwarding?yes Pharmacy: [facility] [phone] [id number] [address] Pending Prescriptions: Disp Refills clonazePAM 1 MG Oral Tablet (KlonoPIN) [P*120 Ta*0 Sig: TAKE 1 TABLET BY MOUTH 4 TIMES DAILY (MORNING,NOON,EVENING,BEDTIME) Last Visit: 05/07/2023 (in office), 12/17/2019 (telemedicine) Next Visit: 11/08/2023 If no future appointments scheduled, and last appointment is greater than a year ago, please schedule patient for a follow-up appointment Last date the medication was ordered: 12/29/2022 Is this request for a controlled substance?Yes and urine drug screen was not completed Urine Drug Screen:No results found for this or any previous visit. Patient Phone Numbers Labs: Lab Results Component Value Date/Time CREAT 0.8 08/13/2023 11:40 AM CREAT 0.7 07/30/2019 03:57 PM POTASSIUM 4.5 08/13/2023 11:40 AM POTASSIUM 3.9 07/30/2019 03:57 PM TSH 1.93 08/13/2023 11:40 AM TSH 3.68 08/18/2005 05:46 PM ALT 16 07/23/2023 01:11 PM ALT 9 (L) 07/30/2019 03:57 PM documented in this encounter Plan of Treatment Upcoming Encounters Date Type Department Care Team (Late st Contact Info) Description 08/31/2023 3:45 PM EDT Office Visit Gynecology/Obstetrics [facility] [address] [place] [id number] Lena Lr MD [address] [place] [address] [place] [address] 09/13/2023 9:15 AM EDT Imaging [place] 2nd Floor Cardiology, [place] [address] [place] [address] 09/13/2023 10:45 AM EDT Imaging [place] [facility], [place] [address] [place] [address] 09/13/2023 11:45 AM EDT Imaging [place] 2nd [facility]iology, [place] [address] [place] [place] [address] 09/13/2023 1:45 PM EDT Imaging [place] [facility]nd [facility], [place] Catie Haasil [place] [address] 10/22/2023 12:00 PM EDT Office Visit Gynecology/Obstetrics [address] [place] [address] Ana Chacko CRNP [address] [facility] [place] [address] 11/08/2023 10:00 AM EDT Office Visit Neurology Kathleen Puente [place] [address] [place] [address] [address] Chester MD [address] [place] [facility] [place] [address] 02/12/2024 9:00 AM EDT Imaging Radiology [facility] [address] [place] [address] Health Maintenance Due Date Last Done Comments [...] dystonia documented in this encounter Care Teams Assignment Desk Assistant Relationship Specialty Start Date End Date Arabella Noland DO [address] [place] [address] PCP - General Family Medicine 11/16/14 documented as of this encounter
[2023-08-22 06:52] LABS: Basophils # (auto) 0.02 K/uL (0.00-0.20); Basophils % (auto) 0.4 %; Eosinophils # (auto) 0.02 K/uL (0.00-0.50); Eosinophils % (auto) 0.4 %; Hematocrit (blood only) 38.2 % (37.0-47.0); Hemoglobin 13.4 g/dl (12.0-16.0); Immature Granulocytes # (auto) 0.01 K/uL (0.01-0.20); Immature Granulocytes % (auto) 0.2 %; Lymphocytes % (auto) 29.9 %; Mean Corpuscular Hemoglobin 30.8 pg (25.0-34.0); Mean Corpuscular Hgb Conc 35.1 g/dL (32.0-36.0); Mean Corpuscular Volume 87.8 fL (80.0-100.0); Mean Platelet Volume 8.2 fL (9.4-12.4); Monocytes # (auto) 0.41 K/uL (0.11-0.59); Monocytes % (auto) 7.2 %; Neutrophils # (auto) 3.53 K/uL (1.40-6.50); Neutrophils % (auto) 61.9 %; Platelet Count 311 K/uL (130-400); RDW Coefficient of Variation 12.5 % (11.5-14.5); RDW Standard Deviation 40.2 fL (36.4-46.3); Red Blood Count 4.35 M/uL (4.20-5.40); White Blood Count 5.69 K/ul (4.8-10.8)
[2023-08-22 07:18] LABS: Albumin Globulin Ratio 1.4 (0.9-2); Albumin Level 3.9 gm/dl (3.4-5.0); BUN Creatinine Ratio 14.5 (10-20); Bilirubin,Total 0.4 mg/dl (0.2-1.0); Calcium 8.3 mg/dl (8.6-10.3); Creatinine Clr Calc Pharmacy 126.9 ml/min; Est GFR (African American) 130.7 ml/min; Est GFR (Non-African American) 112.8 ml/min; Globulin 2.7 gm/dl (2.5-4.0); Potassium 3.9 mmol/L (3.5-5.1); Total Protein 6.6 gm/dl (6.0-8.3)
--- NOTE | 2023-08-22 07:33 | Ultrasound Report ---
ULTRASOUND RIGHT UPPER QUADRANT ABDOMEN CLINICAL HISTORY: Right upper quadrant abdominal pain. COMPARISON STUDY: Abdominal CT dated 08/19/2023. TECHNIQUE: Real-time, grayscale, and color flow sonography of the right upper quadrant of the abdomen was performed. Images are reviewed in the transverse and longitudinal planes. FINDINGS: Liver: The liver is normal in size and echotexture. There is no intrahepatic biliary ductal dilatatio n. The main portal vein is patent. A 1.4 cm round echogenic lesion in the inferior right lobe was als o seen by CT. This is typical for a small hemangioma. Gallbladder: The gallbladder is normal in appearance. No gallstones are identified. There is no gallb ladder wall thickening or edema. Question trace pericholecystic fluid. A sonographic Zuniga's sign is reportedly absent. The common bile duct measures up to 0.3 cm in diameter. Pancreas: Visualized portions of the pancreatic head and body are normal in appearance. Right kidney: Survey images of the right kidney demonstrate normal size and echotexture. There is no hydronephrosis. Ascites: None. IMPRESSION: 1. No gallstones are identified and there is no sonographic evidence of acute cholecystitis. 2. Question trace pericholecystic fluid. This may be artifactual. If there is strong clinical/laborat ory concern for acute cholecystitis a nuclear hepatobiliary scan could be considered. ACT 112: Negative or not required by law. Electronically signed by: Santos Garcia M.D. 08/22/2023 7:32 AM
--- NOTE | 2023-08-22 14:26 | Surgery Consultation ---
Date of Consultation August 22, 2023 Assessment & Plan (1) RUQ abdominal pain: (2) Nausea & vomiting: Plan 33-year-old woman history of bowel issues presents with worsening right upper quadrant pain. Ultrasound demonstrates no evidence of acute cholecystitis or cholelithiasis. Due to her symptoms, we will obtain a HIDA scan for further evaluation. We will continue to follow along. History of Present Illness Reason for Consultation: Right upper quadrant pain, possible cholecystitis Requesting Physician: Kaden Wade MD Attending Physician: Kaden Wade MD History of Present Illness 33-year-old woman with a longstanding complex history of bowel issues presents to the hospital with worsening right upper quadrant pain over the past few days. The pain continues to worsen and is radiating to her right shoulder and back. She does have nausea associated with this. She denies fevers or chills. Ultrasound in the emergency department showed no cholelithiasis and no evidence of acute cholecystitis. She did test positive for norovirus and has viral gastroenteritis. Allergies Allergy/AdvReac Type Severity Reaction Status Date / Time prednisone AdvReac Intermediate DILANTIN Verified 08/19/23 16:14 TOXICITY sulfamethoxazole AdvReac Intermediate BURNING,ALIX Verified 08/19/23 16:14 RRHEA trimethoprim AdvReac Intermediate BURNING,ALIX Verified 08/19/23 16:14 RRHEA Home Medications Medication Instructions Recorded Confirmed Type albuterol sulfate 90 mcg/actuation 2 puff inhalation Q4 PRN Wheezing 08/19/23 08/19/23 History aerosol inhaler carbamazepine 100 mg chewable 150 mg PO BID 08/19/23 08/19/23 History tablet carbamazepine 300 mg 600 mg PO AMHS 08/19/23 08/19/23 History capsule,extended release [id number] clonazepam 1 mg tablet 1 mg PO QID 08/19/23 08/19/23 History duloxetine 60 mg capsule,delayed 120 mg PO QAM 08/19/23 08/19/23 History release linaclotide 145 mcg capsule 145 mcg PO .NOT YET STARTED 08/19/23 08/19/23 History (Linzess) ondansetron 4 mg disintegrating 4 mg PO Q6H PRN Nausea 08/19/23 08/19/23 History tablet phenytoin sodium extended 100 mg 200 mg PO AMPM 08/19/23 08/19/23 History capsule Patient History Medical History Pituitary adenoma 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 Noncompliance with medication regimen PVT (portal vein thrombosis) Anxiety Dystonia Liver lesion, right lobe Hepatic vein thrombosis Asthma Restless leg syndrome Depression Seizure disorder Surgical History Hx of tubal ligation History of dental surgery Family History Other Colorectal cancer Hypertension Social History Smoking Status: Former smoker Tobacco Type: Cigarettes Second Hand Exposure: No; Do You Dip or Chew Tobacco: No; Tobacco Cessation Education Requested by Patient: No Hx Alcohol Use: No Hx Substance Use: Yes Last Used Substance: Days (ago) Last Used Substance Other:: medical marijuana Substance Use Type Other:: medical marijuana Preferred Language: Pashto Communication Ability: Effective Drug Room Clerk Required: No Beliefs That Will Affect Care: None Current Living Situation: Spouse Current Living Situation Comment: 1 story house Other Information That Helps Us Care for You: No Feels Safe at Home: Yes Safety Concerns: Feels Safe At This Time Assistive Devices: None Review of Systems Review of Systems: All systems reviewed & are unremarkable except as noted in HPI & below Physical Exam Constitutional: WD/WN, vitals as above Eyes: PERRL, conjunctivae normal, anicteric sclerae Neck: trachea midline, no thyromegaly Respiratory: normal respiratory effort; no respiratory distress and no labored breathing Cardiovascular: Rate/Rhythm: regular rate and regular rhythm Gastrointestinal (Abdomen): Inspection/Auscultation: abdomen normal to inspection; abdomen not distended Percussion/Palpation: + abdomen tender ( RUQ and epigastrium) and abdomen soft; no guarding and abdomen not rigid Skin: no rashes, warm and dry Psychiatric: A+Ox3, euthymic affect Results & Data Vital Signs (Past 12 Hours) Vital Signs Temp Pulse Resp BP Pulse Ox O2 Del Method 08/22/23 07:39 36.7 C 75 16 110/73 98 Room Air Laboratory Results 08/22/23 Range/Units 06:27 WBC 5.69 (4.8-10.8) K/ul RBC 4.35 (4.20-5.40) M/uL Hgb 13.4 (12.0-16.0) g/dl Hct 38.2 (37.0-47.0) % MCV 87.8 (80.0-100.0) fL MCH 30.8 (25.0-34.0) pg MCHC 35.1 (32.0-36.0) g/dL RDW Std Deviation 40.2 (36.4-46.3) fL RDW Coeff of Erika 12.5 (11.5-14.5) % Plt Count 311 (130-400) K/uL MPV 8.2 L (9.4-12.4) fL Immature Gran % (Auto) 0.2 % Neut % (Auto) 61.9 % Lymph % (Auto) 29.9 % Bibb % (Auto) 7.2 % Eos % (Auto) 0.4 % Baso % (Auto) 0.4 % Neut # (Auto) 3.53 (1.40-6.50) K/uL Lymph # (Auto) 1.70 (1.20-3.40) K/uL Bibb # (Auto) 0.41 (0.11-0.59) K/uL Eos # (Auto) 0.02 (0.00-0.50) K/uL Baso # (Auto) 0.02 (0.00-0.20) K/uL Immature Gran # (Auto) 0.01 (0.01-0.20) K/uL Sodium 135 L (136-145) mmol/L Potassium 3.9 (3.5-5.1) mmol/L Chloride 104 (98-107) mmol/L Carbon Dioxide 27 (21-32) mmol/L Anion Gap 4 (3-11) BUN 10 (6-23) mg/dl Creatinine 0.69 (0.6-1.2) mg/dl Est Cr Clr Drug Dosing 126.9 ml/min Est GFR ( Amer) 130.7 ml/min Est GFR (Non-Af Amer) 112.8 ml/min BUN/Creatinine Ratio 14.5 (10-20) Glucose 88 (70-99(Fasting)) mg/dl Calcium 8.3 L (8.6-10.3) mg/dl Total Bilirubin 0.4 (0.2-1.0) mg/dl AST 17 (13-39) U/L ALT 16 (7-52) U/L Alkaline Phosphatase 92 (34-104) U/L Total Protein 6.6 (6.0-8.3) gm/dl Albumin 3.9 (3.4-5.0) gm/dl Globulin 2.7 (2.5-4.0) gm/dl Albumin/Globulin Ratio 1.4 (0.9-2) Diagnostic Findings ULTRASOUND RIGHT UPPER QUADRANT ABDOMEN CLINICAL HISTORY: Right upper quadrant abdominal pain. COMPARISON STUDY: Abdominal CT dated 08/19/2023. TECHNIQUE: Real-time, grayscale, and color flow sonography of the right upper quadrant of the abdomen was performed. Images are reviewed in the transverse and longitudinal planes. FINDINGS: Liver: The liver is normal in size and echotexture. There is no intrahepatic biliary ductal dilatation. The main portal vein is patent. A 1.4 cm round echogenic lesion in the inferior right lobe was also seen by CT. This is typical for a small hemangioma. Gallbladder: The gallbladder is normal in appearance. No gallstones are identified. There is no gallbladder wall thickening or edema. Question trace pericholecystic fluid. A sonographic Zuniga's sign is reportedly absent. The common bile duct measures up to 0.3 cm in diameter. Pancreas: Visualized portions of the pancreatic head and body are normal in appearance. Right kidney: Survey images of the right kidney demonstrate normal size and echotexture. There is no hydronephrosis. Ascites: None. IMPRESSION: 1. No gallstones are identified and there is no sonographic evidence of acute cholecystitis. 2. Question trace pericholecystic fluid. This may be artifactual. If there is strong clinical/laboratory concern for acute cholecystitis a nuclear hepatobiliary scan could be considered. (2) Nausea & vomiting Vomiting type: unspecified Qualified Code(s): R11.2 - Nausea with vomiting, unspecified
--- NOTE | 2023-08-22 16:12 | Hospitalist Progress Note ---
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 She is being managed for the following: RUQ abdominal pain Nausea, vomiting and diarrhea Acute viral gastroenteritis secondary to norovirus Was recently referred to GI and seen on 08/13 for chronic issues with abdominal pain and constipation. Abdominal ultrasound that showed 0.9 x 0.6 x 1.1 cm hyperechoic lesion, likely hemangioma but no cholelithiasis or evidence of acute cholecystitis. KUB revealed moderate constipation but no obstruction. Scheduled for gastric emptying scan at the end of the month. Prescribed Linzess, [reports it helped w/ BM while in hospital] and just received insurance auth, has not started. Presenting with persistent RUQ pain with associated nausea and diarrhea CT abd/pelvis with : 1. No bowel obstruction or bowel wall thickening. Normal appendix. 2. Scattered large and small bowel air-fluid levels may be physiologic or represent a mild enteritis/diarrheal illness. 3. Colonic diverticulosis without acute diverticulitis. 4. Involuting 1.2 cm right ovarian follicle. Pelvic ultrasound with : 1.Small involuting right ovarian follicle. 2. No ovarian torsion. 3. Unremarkable sonographic appearance of the uterus and endometrium. Scheduled Tylenol, lidocaine patch, attempt to limit narcotic use Pain management consulted; patient received trigger point injection on August 21, 2023 Right upper quadrant ultrasound w/ trace pericholecystic fluid Pt complaining of RUQ radiating to Rt shoulder, HIDA scan sent, Sx consult placed. will follow. NPO, IVF. Seizure disorder : Stable, continue carbamazepine, phenytoin Dystonia : Ambulates at home with wheelchair secondary to focal dystonia of leg. Fall precautions Depression : Chronic, stable. Continue duloxetine Anxiety : Continue duloxetine, clonazepam DVT Ppx: Heparin Code status: FULL PCP: Julia Noland Dispo: Pending RUQ pain improvement. Please note the above document was generated using voice recognition software. It may contain grammatical, syntax or spelling errors. Any formal questions or concerns about the content, text or information contained within the body of this dictation should be directly addressed to the provider for clarification Admission and Anticipated Discharge Date Admission Date: August 21, 2023 Subjective Patient was seen and examined at bedside. Today patient reports continued right upper quadrant pain now with radiation to right shoulder today. When distracted, RUQ tenderness was not noted during exam. Given equivocal liver ultrasound and patient's typical complaint of RUQ pain with radiation to right shoulder, HIDA scan ordered, general surgery consult placed. Continue with pain management, patient made n.p.o., tony gayle. Patient denies diarrhea, denies febrile illness or cough or chest pain. Physical Exam Physical Exam: Constitutional: Alert oriented x 3 Respiratory: normal respiratory effort, lungs clear to auscultation, no wheeze, rales, rhonchi. Normal insp/exp effort, no accessory muscle use Cardiovascular: RRR, no murmur, no edema Vessels: no JVD or carotid bruit Chest: normal inspection of chest Abdomen: Tenderness in right upper quadrant generally present but not appreciated when distracted. bowel sounds present, soft , no guarding. Musculoskeletal: no cyanosis or clubbing, extremities motor strength 5/5 Skin: no rashes, warm and dry normal turgor Neurologic: PERRL, EOMI, accommodation nl, no face palsy, no dysarthria CN's II- XI intact bilaterally and moves all extremities Psychiatric: A+Ox3, euthymic affect Results & Data Results & Data Vital Signs (Past 12 Hours) Vital Signs Temp Pulse Resp BP Pulse Ox O2 Del Method 08/22/23 07:39 36.7 C 75 16 110/73 98 Room Air (2) Nausea & vomiting Vomiting type: unspecified Qualified Code(s): R11.2 - Nausea with vomiting, unspecified
--- NOTE | 2023-08-22 16:14 | Nuclear Medicine Report ---
NUCLEAR HEPATOBILIARY SCAN CLINICAL HISTORY: Right upper quadrant abdominal pain. COMPARISON STUDY: Abdominal ultrasound dated 08/22/2023. TECHNIQUE: Dynamic images of the liver and anterior abdomen were obtained every 5 minutes for a total of 60 minutes following the IV administration of 5.1 mCi of technetium 99m Mebrofenin. FINDINGS: The hepatobiliary scan shows prompt and homogeneous hepatic uptake. There is visualized act ivity within the intra and extrahepatic biliary tree at 10 minutes, and within the gallbladder at 15 minutes. There is normal biliary to bowel transit, with small bowel visualized by 50 minutes. IMPRESSION: Normal nuclear hepatobiliary scan. There is no scintigraphic evidence of cholecystitis. ACT 112: Negative or not required by law. Electronically signed by: Santos Garcia M.D. 08/22/2023 4:13 PM
[2023-08-22] MEDS: SODIUM CHLORIDE 0.9% 1,000 ML IV SCH (16:47)
[2023-08-22 18:57] LABS: Codeine Urine NEGATIVE ng/mL (<50); Hydrocodone Urine NEGATIVE ng/mL (<50); Hydromor Urine NEGATIVE ng/mL (<50); Marijuana Quant, GCMS Urine 167 ng/mL (<5); Morphine Urine 6210 ng/mL (<50); Norhydrocodone Conf Ur NEGATIVE ng/mL (<50); Noroxycodone Urine NEGATIVE ng/mL (<50); Oxycodone Urine NEGATIVE ng/mL (<50); Oxymorph Urine NEGATIVE ng/mL (<50)
[2023-08-22] MEDS: HEPARIN SOD 5,000 UNIT/0.5 ML VIAL SQ SCH (21:44)
[2023-08-23 06:51] LABS: Hematocrit (blood only) 36.4 % (37.0-47.0); Hemoglobin 12.6 g/dl (12.0-16.0); Mean Corpuscular Hemoglobin 30.5 pg (25.0-34.0); Mean Corpuscular Hgb Conc 34.6 g/dL (32.0-36.0); Mean Corpuscular Volume 88.1 fL (80.0-100.0); Mean Platelet Volume 8.4 fL (9.4-12.4); Platelet Count 320 K/uL (130-400); RDW Coefficient of Variation 12.6 % (11.5-14.5); RDW Standard Deviation 40.4 fL (36.4-46.3); Red Blood Count 4.13 M/uL (4.20-5.40)
[2023-08-23 07:11] LABS: Albumin Globulin Ratio 1.5 (0.9-2); Albumin Level 3.7 gm/dl (3.4-5.0); BUN Creatinine Ratio 11.3 (10-20); Bilirubin,Total 0.3 mg/dl (0.2-1.0); Calcium 7.9 mg/dl (8.6-10.3); Creatinine Clr Calc Pharmacy 141.2 ml/min; Est GFR (African American) 135.4 ml/min; Est GFR (Non-African American) 116.8 ml/min; Globulin 2.5 gm/dl (2.5-4.0); Phosphorus 2.8 mg/dl (2.5-4.9); Potassium 3.7 mmol/L (3.5-5.1); Total Protein 6.2 gm/dl (6.0-8.3)
--- NOTE | 2023-08-23 09:58 | Communication Note ---
Date of Service: August 23, 2023 Patient not examined today, chart reviewed. Labs including cbc and t. bili and lfts all wnl. Afebrile. HIDA scan negative for cystic duct obstruction/acute cholecystitis. Given chronic GI issues, +norovirus, and negative gallbladder work-up no indication for cholecystectomy at this time. Would continue medical management for chronic pain and nausea and vomiting. Our services signing off. please call with questions/concerns.
--- NOTE | 2023-08-23 10:17 | Pain Management Progress Note ---
Date of Service August 23, 2023 Assessment & Plan (1) RUQ abdominal pain: (2) Dystonia: (3) Myofascial pain: (4) Thoracic back pain: Plan 1. Will workup patient for possibility that she is having radicular component pain from her thoracic spine. * Ordered thoracic spine x-rays and MRI without contrast of t-spine. 2. Could consider starting gabapentin if not considered too duplicative of therapy based on other current medications. 3. No further pain management interventional procedures recommended at this time. 4. Will follow. Admission and Anticipated Discharge Date Admission Date: August 21, 2023 Subjective Patient states, at most, only about 2 hours of some mild to moderate pain relief with the trigger point injections given couple of days ago. She is very concerned since she does not know what is "wrong with her", and she is generally tearful, saying that she has not been getting any pain medicine because she failed a drug test upon admission. She states today that she has been afraid to speak up about any additional pains, seemingly thinking that she would just be seen as complaining or making things up. She has been having some pain that she says shoots from her right upper quadrant region where she has been localizing the pain, but this is going dorsally towards the posterior ribs and thoracic spine. Again, she has had a history of some back pains, but she is currently localizing some pain to her right thoracolumbar paraspinal region, and into the rib cage. Case discussed with Dr. Harvey. Pain Assessment Pain Assessment Full Body Front + Back: 2 1. 2. Physical Exam 2 Physical Exam: GENERAL: Speech and cognition is intact. Mood and affect is appropriate. Does not appear in acute distress. Lying in bed, appears relatively comfortable. HEAD: Normocephalic; atraumatic. NECK: Trachea is midline. CHEST: Regular chest respiration and excursion. BACK: + TTP right thoracolumbar junction paraspinals and posterior ribs. NEURO: Awake, alert, and oriented x 3. SKIN: No lesions, erythema, or rashes noted. ABDOMEN: + TTP RUQ at costal margin. Non-tender LUQ, LLQ, RLQ. Gastrointestinal (Abdomen): Inspection/Auscultation: abdomen normal to inspection; abdomen not distended Results (Pain Clinic) Diagnostic Review Other Findings: Hepatobiliary Scan Nuclear Medicine 08/22/23 11:03 NUCLEAR HEPATOBILIARY SCAN CLINICAL HISTORY: Right upper quadrant abdominal pain. COMPARISON STUDY: Abdominal ultrasound dated 08/22/2023. TECHNIQUE: Dynamic images of the liver and anterior abdomen were obtained every 5 minutes for a total of 60 minutes following the IV administration of 5.1 mCi of technetium 99m Mebrofenin. FINDINGS: The hepatobiliary scan shows prompt and homogeneous hepatic uptake. There is visualized activity within the intra and extrahepatic biliary tree at 10 minutes, and within the gallbladder at 15 minutes. There is normal biliary to bowel transit, with small bowel visualized by 50 minutes. IMPRESSION: Normal nuclear hepatobiliary scan. There is no scintigraphic evidence of cholecystitis. ACT 112: Negative or not required by law. Electronically signed by: Santos Garcia M.D. 08/22/2023 4:13 PM
--- NOTE | 2023-08-23 16:24 | Hospitalist Progress Note ---
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 She is being managed for the following: RUQ abdominal pain Nausea, vomiting and diarrhea Acute viral gastroenteritis secondary to norovirus Was recently referred to GI and seen on 08/13 for chronic issues with abdominal pain and constipation. Abdominal ultrasound that showed 0.9 x 0.6 x 1.1 cm hyperechoic lesion, likely hemangioma but no cholelithiasis or evidence of acute cholecystitis. KUB revealed moderate constipation but no obstruction. Scheduled for gastric emptying scan at the end of the month. Prescribed Linzess, [reports it helped w/ BM while in hospital] and just received insurance auth, has not started. Presenting with persistent RUQ pain with associated nausea and diarrhea CT abd/pelvis with : 1. No bowel obstruction or bowel wall thickening. Normal appendix. 2. Scattered large and small bowel air-fluid levels may be physiologic or represent a mild enteritis/diarrheal illness. 3. Colonic diverticulosis without acute diverticulitis. 4. Involuting 1.2 cm right ovarian follicle. Pelvic ultrasound with : 1.Small involuting right ovarian follicle. 2. No ovarian torsion. 3. Unremarkable sonographic appearance of the uterus and endometrium. Scheduled Tylenol, lidocaine patch, attempt to limit narcotic use Pain management consulted; patient received trigger point injection on August 21, 2023 Right upper quadrant ultrasound w/ trace pericholecystic fluid --> HIDA scan obtained --> neg for cholecystitis. Diet resumed, pt tolerating diet well. Pt today complains of low back pain and rt flank pain. Pain Mx re-evaluating, sent MRI thoracic spine ---> recommends gabapentin d/w pharmacy, no c/i for gabapentin, will initiate. Seizure disorder : Stable, continue carbamazepine, phenytoin Dystonia : Ambulates at home with wheelchair secondary to focal dystonia of leg. Fall precautions Depression : Chronic, stable. Continue duloxetine Anxiety : Continue duloxetine, clonazepam DVT Ppx: Heparin Code status: FULL PCP: L Kopinski Dispo: Pending pain mx. Please note the above document was generated using voice recognition software. It may contain grammatical, syntax or spelling errors. Any formal questions or concerns about the content, text or information contained within the body of this dictation should be directly addressed to the provider for clarification Admission and Anticipated Discharge Date Admission Date: August 21, 2023 Subjective Patient was seen and examined at bedside. Patient appears calm and rested and on room air at bedside exam. She reports that she has continued right upper belly pain and has not improved a bit. Didn't mention about shoulder pain today, but has right flank and lower back pain today. Pain management evaluated, appreciate recommendation. HIDA scan came back negative, patient was updated, diet resumed, patient ate diet well and tolerated without any increasing abdominal pain per RN. Later in the day, patient reported acute headache and nausea. Stat CT scan of the head sent, will follow. RN was communicated to give her IV Tylenol and IV Zofran. Also communicated to monitor vitals closely. Patient denies chest pain. Patient reports moving bowel okay. Physical Exam Physical Exam: Constitutional: Alert oriented x 3 Respiratory: normal respiratory effort, lungs clear to auscultation, no wheeze, rales, rhonchi. Normal insp/exp effort, no accessory muscle use Cardiovascular: RRR, no murmur, no edema Vessels: no JVD or carotid bruit Chest: normal inspection of chest Abdomen: ?Tenderness in right upper quadrant. bowel sounds present, soft , no guarding. Musculoskeletal: no cyanosis or clubbing, extremities motor strength 5/5 Skin: no rashes, warm and dry normal turgor Neurologic: PERRL, EOMI, accommodation nl, no face palsy, no dysarthria CN's II- XI intact bilaterally and moves all extremities Psychiatric: A+Ox3, euthymic affect Results & Data Results & Data Vital Signs (Past 12 Hours) Vital Signs Temp Pulse Resp BP Pulse Ox O2 Del Method 08/23/23 14:53 36.6 C 92 H 20 119/86 96 Room Air 08/23/23 07:56 36.7 C 71 18 122/82 100 Room Air (2) Nausea & vomiting Vomiting type: unspecified Qualified Code(s): R11.2 - Nausea with vomiting, unspecified
--- NOTE | 2023-08-23 16:33 | XRay Report ---
THORACIC SPINE 3 VIEWS CLINICAL HISTORY: Thoracic back pain. FINDINGS: AP, lateral, and swimmer's views of the thoracic spine are correlated with CT scan of the t horacic spine dated 09/15/2008. The skeletal structures are well mineralized. There is no radiographic evidence of fracture or malalignment. Vertebral body height and alignment are maintained throughout the thoracic spine. The transverse processes and pedicles are intact as seen on the frontal view. Spo ndylotic change is noted in the lower cervical spine on the swimmer's view. The disc spaces are maint ained. The imaged lung parenchyma appears clear. IMPRESSION: No acute bony abnormality is seen involving the thoracic spine. ACT 112: Negative or not required by law. Electronically signed by: Santos Garcia M.D. 08/23/2023 4:31 PM
--- NOTE | 2023-08-23 16:56 | CT Scan Report ---
CT SCAN OF THE BRAIN WITHOUT IV CONTRAST CLINICAL HISTORY: Acute headache. Blurry vision. COMPARISON STUDY: CT of the brain dated 08/29/2021. TECHNIQUE: Unenhanced axial CT scan of the brain is performed from the vertex to the skull base. A d ose lowering technique was utilized adhering to the principles of ALARA. CT DOSE: 547.75 mGy.cm FINDINGS: Brain parenchyma: The brain parenchyma is normal in appearance. There is no hemorrhage, mass effect, or evidence of acute territorial ischemia by CT criteria. Daniels-white matter differentiation is preser miguel. No extra-axial fluid collection is seen. Ventricles, sulci, cisterns: Normal in configuration. Intracranial vasculature: The visualized intracranial vasculature at the skull base is normal in appe arance. Calvarium: Unremarkable. Sinuses and mastoids: The visualized paranasal sinuses are clear. The mastoid air cells are well pneu matized. Orbits: The bony orbits are grossly intact. IMPRESSION: No acute intracranial abnormality. ACT 112: Negative or not required by law. Electronically signed by: Santos Garcia M.D. 08/23/2023 4:54 PM
--- NOTE | 2023-08-23 17:36 | Magnetic Resonance Report ---
MR thoracic spine wo con HISTORY: 33 years-old Female thoracic back pain; possible radicular RUQ pain acute mid back pain wit hout reported trauma COMPARISON: CT cervical spine 08/28/2021 TECHNIQUE: Multiplanar multisequence MRI of the thoracic spine was obtained without the use of IV con trast. FINDINGS: Normal signal within the thoracic and imaged cervical spinal cord. There is mild multilevel intervert ebral disc space narrowing, spondylitic spurring and facet arthrosis without acute fracture, subluxat ion, endplate erosion or marrow replacing process. Severe C5-C6 with moderate C6-C7 disc space narrow ing redemonstrated with bridging osteophytosis. No large annular disc bulges within the thoracic spin e. No high-grade central canal or foraminal narrowing identified. No significant bone marrow edema. T he imaged intrathoracic and paraspinal structures are unremarkable. IMPRESSION: 1. Mild intervertebral disc space narrowing, spondylitic spurring and facet arthrosis without signifi cant central canal or foraminal narrowing. 2. No acute fracture, subluxation or bone marrow edema. ACT 112: Negative or not required by law. The above report was generated using voice recognition software. It may contain grammatical, syntax o r spelling errors. Electronically signed by: Omid Schulz M.D. 08/23/2023 5:33 PM
[2023-08-23] MEDS: GABAPENTIN 100 MG CAP PO SCH (19:50)
[2023-08-24 06:36] LABS: Hematocrit (blood only) 38.2 % (37.0-47.0); Hemoglobin 12.9 g/dl (12.0-16.0); Mean Corpuscular Hemoglobin 30.5 pg (25.0-34.0); Mean Corpuscular Hgb Conc 33.8 g/dL (32.0-36.0); Mean Corpuscular Volume 90.3 fL (80.0-100.0); Mean Platelet Volume 8.3 fL (9.4-12.4); Platelet Count 307 K/uL (130-400); RDW Coefficient of Variation 12.7 % (11.5-14.5); RDW Standard Deviation 41.9 fL (36.4-46.3); Red Blood Count 4.23 M/uL (4.20-5.40); White Blood Count 5.41 K/ul (4.8-10.8)
[2023-08-24 07:11] LABS: Albumin Globulin Ratio 1.5 (0.9-2); Albumin Level 3.9 gm/dl (3.4-5.0); BUN Creatinine Ratio 15.6 (10-20); Bilirubin,Total 0.3 mg/dl (0.2-1.0); Calcium 8.2 mg/dl (8.6-10.3); Creatinine Clr Calc Pharmacy 113.7 ml/min; Est GFR (African American) 115.9 ml/min; Globulin 2.6 gm/dl (2.5-4.0); Magnesium 2.1 mg/dl (1.7-2.4); Potassium 4.2 mmol/L (3.5-5.1); Total Protein 6.5 gm/dl (6.0-8.3)
[2023-08-24] MEDS: KETOROLAC TROMETHAMINE 15 MG/ML VIAL IV ONE ×2 (09:50→20:33)
[2023-08-24] MEDS ORDERED: CAFFEINE CITRATE 60 MG/3 ML VIAL IV STA (12:57)
--- NOTE | 2023-08-24 12:59 | Neurology Consultation ---
Date of Consultation August 24, 2023 Assessment & Plan (1) Headache: Recommend cephalgia treatment include: IV caffeine 500 mg x 1 10mg IV metoclopramide x 1 50mg IV diphenhydramine x1 2g IV magnesium sulfate x1 Consider 1 mg IV hydromorphone x1 Patient is receiving clonazepam, agree with continued med If no improvement following the above administration then recommend LP to eval for WOOD CAULKER infection MRI brain with and without contrast when stable Telehealth Consultation Telehealth Information Telehealth Information: I performed this visit using a real-time telehealth connection between my location and the patients location ([facility]). After connecting through interactive tele-video, patient was identified by name and date of and/or wristband check.Patient (or authorized healthcare maintenance representative) was informed that this was a telemedicine visit and it was being conducted confidentially over secure lines. My office door was closed and no one else was present in the room with me.Patient (or authorized healthcare maintenance representative) provided consent to proceed with the visit, expressed an understanding of privacy and security of the telemedicine visit, and gave permission to have a hospital maintenance representative in the room in order to assist with the visit and to conduct portions of the visit, as needed. I informed the patient (or authorized healthcare maintenance representative) that I reviewed their record and presented the opportunity for them to ask any questions regarding the visit today. The patient agreed to participate. History of Present Illness Reason for Consultation: Acute cephalgia Requesting Physician: Dr. Wade Attending Physician: Kaden Wade MD History of Present Illness 33-year-old female with significant past medical history including anxiety seizure hepatic vein Thrombosis notably uses medical marijuana daily for chronic pain/back pain wheelchair presented originally with right upper quadrant abdominal pain. Has undergone CT brain without contrast revealing no evidence of hemorrhage notably/unfortunately suffering severe headache with photophobia at this time. Televideo consultation appreciated patient remains alert and oriented able answer questions appropriately follow commands appears in overt pain and anxious. No chest pain/palpitations or shortness of breath. He is able to rotate cervical spine but says her neck hurts she is able to touch her chin to her chest but also states her neck hurts. She is unwilling to undergo treatment with IV steroids reports steroids will make her seizures worse. I talked with her recommendations to undergo treatment with IV medications including IV caffeine at this time. I explained that if headache does not improve she may require a spinal tap. I recommended an MRI of her brain when headache is improved. All questions answered. Allergies Allergy/AdvReac Type Severity Reaction Status Date / Time prednisone AdvReac Intermediate DILANTIN Verified 08/19/23 16:14 TOXICITY sulfamethoxazole AdvReac Intermediate BURNING,ALIX Verified 08/19/23 16:14 RRHEA trimethoprim AdvReac Intermediate BURNING,ALIX Verified 08/19/23 16:14 RRHEA Home Medications Medication Instructions Recorded Confirmed Type albuterol sulfate 90 mcg/actuation 2 puff inhalation Q4 PRN Wheezing 08/19/23 08/19/23 History aerosol inhaler carbamazepine 100 mg chewable 150 mg PO BID 08/19/23 08/19/23 History tablet carbamazepine 300 mg 600 mg PO AMHS 08/19/23 08/19/23 History capsule,extended release [id number] clonazepam 1 mg tablet 1 mg PO QID 08/19/23 08/19/23 History duloxetine 60 mg capsule,delayed 120 mg PO QAM 08/19/23 08/19/23 History release linaclotide 145 mcg capsule 145 mcg PO .NOT YET STARTED 08/19/23 08/19/23 History (Linzess) ondansetron 4 mg disintegrating 4 mg PO Q6H PRN Nausea 08/19/23 08/19/23 History tablet phenytoin sodium extended 100 mg 200 mg PO AMPM 08/19/23 08/19/23 History capsule Patient History Medical History (Updated 08/24/23 @ 13:04 by Hood Jiménez DO) Thoracic back pain Pituitary adenoma 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 Noncompliance with medication regimen PVT (portal vein thrombosis) Anxiety Dystonia Liver lesion, right lobe Hepatic vein thrombosis Asthma Restless leg syndrome Depression Seizure disorder Surgical History Hx of tubal ligation History of dental surgery Family History Other Colorectal cancer Hypertension Social History Smoking Status: Former smoker Tobacco Type: Cigarettes Second Hand Exposure: No; Do You Dip or Chew Tobacco: No; Tobacco Cessation Education Requested by Patient: No Hx Alcohol Use: No Hx Substance Use: Yes Last Used Substance: Days (ago) Last Used Substance Other:: medical marijuana Substance Use Type Other:: medical marijuana Preferred Language: Macedonian Communication Ability: Effective Dental Insurance Coordinator Required: No Beliefs That Will Affect Care: None Current Living Situation: Spouse Current Living Situation Comment: 1 story house Other Information That Helps Us Care for You: No Feels Safe at Home: Yes Safety Concerns: Feels Safe At This Time Assistive Devices: Wheelchair Results & Data Vital Signs (Past 12 Hours) Vital Signs Temp Pulse Resp BP Pulse Ox O2 Del Method 08/24/23 07:00 36.5 C 71 16 105/72 98 Room Air Laboratory Results Abnormal lab results 08/24/23 Range/Units 06:14 MPV 8.3 L (9.4-12.4) fL Sodium 135 L (136-145) mmol/L Calcium 8.2 L (8.6-10.3) mg/dl Diagnostic Findings Abdomen/Pelvis CT 08/19/23 12:[address] WITH IV CONTRAST CT DOSE: 1264.81 mGy.cm HISTORY: Acute right lower quadrant abdominal pain RLQ pain TECHNIQUE: Multiaxial CT images of the abdomen and pelvis were performed following the IV administration of 93 cc of Optiray, A dose lowering technique was utilized adhering to the principles of ALARA. COMPARISON STUDY: December 17, 2021, MRI 11/12/2018. FINDINGS: The lung bases are clear. The spleen, gallbladder, pancreas, kidneys, and adrenal glands are within normal limits. Unchanged 1.6 cm lesion within the inferior right hepatic lobe on image 35 series 2 which was described as a probable complex cyst on the prior MRI. Normal appendix. Mild colonic diverticulosis. Scattered small enlarged bowel air-fluid levels. No bowel wall thickening or obstruction. 1.2 cm involuting right ovarian follicle. Pelvic structures are otherwise unremarkable. No suspicious lytic or blastic osseous lesions. IMPRESSION: 1. No bowel obstruction or bowel wall thickening. Normal appendix. 2. Scattered large and small bowel air-fluid levels may be physiologic or represent a mild enteritis/diarrheal illness. 3. Colonic diverticulosis without acute diverticulitis. 4. Involuting 1.2 cm right ovarian follicle. ACT 112: Negative or not required by law. The above report was generated using voice recognition software. It may contain grammatical, syntax or spelling errors. Electronically signed by: Omid Schulz M.D. 08/19/2023 2:23 PM Thoracic Spine MRI 08/23/23 12:44 MR thoracic spine wo con HISTORY: 33 years-old Female thoracic back pain; possible radicular RUQ pain acute mid back pain without reported trauma COMPARISON: CT cervical spine 08/28/2021 TECHNIQUE: Multiplanar multisequence MRI of the thoracic spine was obtained without the use of IV contrast. FINDINGS: Normal signal within the thoracic and imaged cervical spinal cord. There is mild multilevel intervertebral disc space narrowing, spondylitic spurring and facet arthrosis without acute fracture, subluxation, endplate erosion or marrow replacing process. Severe C5-C6 with moderate C6-C7 disc space narrowing redemonstrated with bridging osteophytosis. No large annular disc bulges within the thoracic spine. No high-grade central canal or foraminal narrowing identified. No significant bone marrow edema. The imaged intrathoracic and paraspinal structures are unremarkable. IMPRESSION: 1. Mild intervertebral disc space narrowing, spondylitic spurring and facet arthrosis without significant central canal or foraminal narrowing. 2. No acute fracture, subluxation or bone marrow edema. ACT 112: Negative or not required by law. The above report was generated using voice recognition software. It may contain grammatical, syntax or spelling errors. Electronically signed by: Omid Schulz M.D. 08/23/2023 5:33 PM Thoracic Spine X-Ray 08/23/23 12:44 THORACIC SPINE 3 VIEWS CLINICAL HISTORY: Thoracic back pain. FINDINGS: AP, lateral, and swimmer's views of the thoracic spine are correlated with CT scan of the thoracic spine dated 09/15/2008. The skeletal structures are well mineralized. There is no radiographic evidence of fracture or malalignment. Vertebral body height and alignment are maintained throughout the thoracic spine. The transverse processes and pedicles are intact as seen on the frontal view. Spondylotic change is noted in the lower cervical spine on the swimmer's view. The disc spaces are maintained. The imaged lung parenchyma appears clear. IMPRESSION: No acute bony abnormality is seen involving the thoracic spine. ACT 112: Negative or not required by law. Electronically signed by: Santos Garcia M.D. 08/23/2023 4:[address] 08/23/23 14:44 CT SCAN OF THE BRAIN WITHOUT IV CONTRAST CLINICAL HISTORY: Acute headache. Blurry vision. COMPARISON STUDY: CT of the brain dated 08/29/2021. TECHNIQUE: Unenhanced axial CT scan of the brain is performed from the vertex to the skull base. A dose lowering technique was utilized adhering to the principles of ALARA. CT DOSE: 547.75 mGy.cm FINDINGS: Brain parenchyma: The brain parenchyma is normal in appearance. There is no hemorrhage, mass effect, or evidence of acute territorial ischemia by CT criteria. Daniels-white matter differentiation is preserved. No extra-axial fluid collection is seen. Ventricles, sulci, cisterns: Normal in configuration. Intracranial vasculature: The visualized intracranial vasculature at the skull base is normal in appearance. Calvarium: Unremarkable. Sinuses and mastoids: The visualized paranasal sinuses are clear. The mastoid air cells are well pneumatized. Orbits: The bony orbits are grossly intact. IMPRESSION: No acute intracranial abnormality. ACT 112: Negative or not required by law. Electronically signed by: Santos Garcia M.D. 08/23/2023 4:54 PM Medications Administered Home Medications Medication Instructions Recorded Confirmed Last Taken albuterol sulfate 90 mcg/actuation 2 puff inhalation Q4 PRN Wheezing 08/19/23 08/19/23 Unknown aerosol inhaler carbamazepine 100 mg chewable 150 mg PO BID 08/19/23 08/19/23 08/19/23 tablet am carbamazepine 300 mg 600 mg PO AMHS 08/19/23 08/19/23 08/19/23 capsule,extended release [id number] am clonazepam 1 mg tablet 1 mg PO QID 08/19/23 08/19/23 08/19/23 1200 duloxetine 60 mg capsule,delayed 120 mg PO QAM 08/19/23 08/19/23 08/19/23 release linaclotide 145 mcg capsule 145 mcg PO .NOT YET STARTED 08/19/23 08/19/23 Unknown (Linzess) ondansetron 4 mg disintegrating 4 mg PO Q6H PRN Nausea 08/19/23 08/19/23 Unknown tablet phenytoin sodium extended 100 mg 200 mg PO AMPM 08/19/23 08/19/23 08/19/23 capsule am dose Active Medications Generic Name Dose Route Start Last Admin Trade Name Freq PRN Reason Stop Dose Admin Carbamazepine 150 mg 08/19/23 21:08 08/24/23 08:43 Carbamazepine 100 Mg Chew Tab PO 09/18/23 21:07 150 mg BID DWAYNE Administration Clonazepam 1 mg 08/19/23 21:08 08/24/23 08:44 Clonazepam 1 Mg Tab PO 09/18/23 21:07 1 mg QID DWAYNE Administration Dicyclomine HCl 10 mg 08/20/23 08:41 08/24/23 08:47 Dicyclomine Hcl 10 Mg Cap PO 09/19/23 08:44 10 mg Q8H PRN Administration pain Duloxetine HCl 120 mg 08/20/23 09:00 08/24/23 08:44 Duloxetine Hcl 60 Mg Cap PO 09/19/23 08:59 120 mg DAILY DWAYNE Administration Gabapentin 100 mg 08/23/23 21:00 08/24/23 08:45 Gabapentin 100 Mg Cap PO 09/22/23 20:59 100 mg TID DWAYNE Administration Heparin Sodium (Porcine) 5,000 units 08/22/23 21:00 08/24/23 08:48 Heparin Sod 5,000 Unit/0.5 Ml Vial SQ 09/21/23 20:59 5,000 units Q12 DWAYNE Administration Pantoprazole Sodium 40 mg/ 10 mls @ 5 mls/min 08/19/23 17:00 08/24/23 04:57 Syringe IV 09/18/23 16:59 5 mls/min Q12H DWAYNE Administration Acetaminophen 1,000 mg in 100 mls @ 400 mls/hr 08/20/23 15:31 08/24/23 07:08 Ofirmev IV 08/25/23 20:00 Infused Q8H PRN Infusion Severe Pain (Scale 7, 8, 9,10) Lidocaine 1 patch 08/19/23 18:00 08/24/23 08:45 Lidocaine 5% 1 Patch TD 09/18/23 17:59 Not Given DAILY DWAYNE Linaclotide 72 mcg 08/20/23 13:45 08/24/23 08:45 Linaclotide 72 Mcg Capsule PO 09/19/23 13:44 72 mcg DAILY DWAYNE Administration Miscellaneous 1 each 08/19/23 21:00 08/23/23 19:54 Remove Lidoderm Patch N/A 09/18/23 20:59 Not Given DAILY@2100 DWAYNE Carbatrol~Non- 2 each 08/23/23 21:00 08/24/23 08:42 Formulary Patient's PO 09/18/23 21:44 2 each Own Med BID DWAYNE Administration Ondansetron HCl 4 mg 08/19/23 21:08 08/24/23 11:16 Ondansetron Inj 2 Mg/Ml 2 Ml Vial IV 09/18/23 21:07 4 mg Q6H PRN Administration Nausea Phenytoin Sodium 200 mg 08/19/23 21:15 08/24/23 08:46 Phenytoin Sodium Er 100 Mg Cap PO 09/18/23 21:14 200 mg BID DWAYNE Administration
[2023-08-24] MEDS: HYDROmorphone INJ 0.5 MG/0.5 ML SYR IV STA (13:34)
[2023-08-24] MEDS: LIDOCAINE 5% 1 PATCH TD STA (13:41)
[2023-08-24] MEDS: diphenhydrAMINE 50 MG/ML VIAL IV STA (13:41)
[2023-08-24] MEDS: METOCLOPRAMIDE HCL INJ 5 MG/ML 2 ML VIAL IV ONE (13:50)
[2023-08-24] MEDS: MAGNESIUM SULFATE / D5W 1 GM/100 ML BAG IV SCH (13:56)
--- NOTE | 2023-08-24 14:27 | Pain Management Progress Note ---
Date of Service August 24, 2023 Assessment & Plan (1) RUQ abdominal pain: (2) Dystonia: (3) Myofascial pain: (4) Thoracic back pain: (5) Uncontrolled pain: (6) Abdominal pain: Abdominal location: right upper quadrant Qualified Code(s): R10.11 - Right upper quadrant pain Plan 1. Thoracic spine x-rays and MRI do not demonstrate any significant finding that would explain an origin as to the patient's pain. 2. Patient having severe headache today and being worked up with neurology. 3. No current pain management interventional procedures recommended at this time. 4. Discussed with the patient about having a referral put in by her [facility] PCP to the pain management clinic so she could be seen as an outpatient there. * Will look to further work her up for an intercostal neuralgia and potential nerve block for that, or the possibility of a TAP block. * Will follow the patient peripherally to see how things come about with her inpatient status and disposition. 5. Pain management service will sign off at this time. Admission and Anticipated Discharge Date Admission Date: August 21, 2023 Subjective Patient states still no sustained relief from the trigger point injections given on 08/21/23. She is saying that she now has a severe headache and had a neurology consult. they are giving her medicine for the headache. Still w/ right upper quadrant region pain, as well as right-sided posterior ribs and thoracic spine pain. She understands that the thoracic spine x-ray and MRI were relatively normal in finding. Case discussed with Dr. Harvey. Physical Exam Physical Exam: GENERAL: Speech and cognition is intact. Mood is crying. Does not appear in acute distress. Lying in bed holding head. HEAD: Normocephalic; atraumatic. CHEST: Regular chest respiration and excursion. BACK: + TTP right thoracolumbar junction paraspinals and posterior ribs. NEURO: Awake, alert, and oriented x 3. SKIN: No lesions, erythema, or rashes noted. ABDOMEN: + TTP RUQ at costal margin. Non-tender LUQ, LLQ, RLQ. Gastrointestinal (Abdomen): Inspection/Auscultation: abdomen normal to inspection; abdomen not distended Results (Pain Clinic) Diagnostic Review MRI Findings: MR thoracic spine wo con HISTORY: 33 years-old Female thoracic back pain; possible radicular RUQ pain acute mid back pain without reported trauma COMPARISON: CT cervical spine 08/28/2021 TECHNIQUE: Multiplanar multisequence MRI of the thoracic spine was obtained without the use of IV contrast. FINDINGS: Normal signal within the thoracic and imaged cervical spinal cord. There is mild multilevel intervertebral disc space narrowing, spondylitic spurring and facet arthrosis without acute fracture, subluxation, endplate erosion or marrow replacing process. Severe C5-C6 with moderate C6-C7 disc space narrowing redem onstrated with bridging osteophytosis. No large annular disc bulges within the thoracic spine. No high-grade central canal or foraminal narrowing identified. No significant bone marrow edema. The imaged intrathoracic and paraspinal structures are unremarkable. IMPRESSION: 1. Mild intervertebral disc space narrowing, spondylitic spurring and facet arthrosis without significant central canal or foraminal narrowing. 2. No acute fracture, subluxation or bone marrow edema. ACT 112: Negative or not required by law. The above report was generated using voice recognition software. It may contain grammatical, syntax or spelling errors. Electronically signed by: Omid Schulz M.D. 08/23/2023 5:33 PM Dictated: 08/23/23 1729 Transcribed: 08/23/23 1729 Radiology Findings: THORACIC SPINE 3 VIEWS CLINICAL HISTORY: Thoracic back pain. FINDINGS: AP, lateral, and swimmer's views of the thoracic spine are correlated with CT scan of the thoracic spine dated 09/15/2008. The skeletal structures are well mineralized. There is no radiographic evidence of fracture or malalignment. Vertebral body height and alignment are maintained throughout the thoracic spine. The transverse processes and pedicles are intact as seen on the frontal view. Spondylotic change is noted in the lower cervical spine on the swimmer's view. The disc spaces are maintained. The imaged lung parenchyma appears clear. IMPRESSION: No acute bony abnormality is seen involving the thoracic spine. ACT 112: Negative or not required by law. Electronically signed by: Santos Garcia M.D. 08/23/2023 4:31 PM Dictated: 08/23/23 1630 Transcribed: 08/23/23 1630
--- NOTE | 2023-08-24 17:46 | Hospitalist Progress Note ---
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 She is being managed for the following: RUQ abdominal pain Nausea, vomiting and diarrhea Acute viral gastroenteritis secondary to norovirus Was recently referred to GI and seen on 08/13 for chronic issues with abdominal pain and constipation. Abdominal ultrasound that showed 0.9 x 0.6 x 1.1 cm hyperechoic lesion, likely hemangioma but no cholelithiasis or evidence of acute cholecystitis. KUB revealed moderate constipation but no obstruction. Scheduled for gastric emptying scan at the end of the month. Prescribed Linzess, [reports it helped w/ BM while in hospital] and just received insurance auth, has not started. Presenting with persistent RUQ pain with associated nausea and diarrhea CT abd/pelvis with : 1. No bowel obstruction or bowel wall thickening. Normal appendix. 2. Scattered large and small bowel air-fluid levels may be physiologic or represent a mild enteritis/diarrheal illness. 3. Colonic diverticulosis without acute diverticulitis. 4. Involuting 1.2 cm right ovarian follicle. Pelvic ultrasound with : 1.Small involuting right ovarian follicle. 2. No ovarian torsion. 3. Unremarkable sonographic appearance of the uterus and endometrium. Scheduled Tylenol, lidocaine patch, attempt to limit narcotic use Pain management consulted; patient received trigger point injection on August 21, 2023 Right upper quadrant ultrasound w/ trace pericholecystic fluid --> HIDA scan obtained --> neg for cholecystitis. Patient today with no complaints of abdominal pain. Pain management evaluating, MRI thoracic spine with no abnormality to explain her pain. Patient to follow-up with pain management on DC. Patient on gabapentin for pain management recommendation. Will follow the response. Acute headache: Started 3/7 evening, CT head with no acute finding. Neurology evaluated, appreciate recs - cephalalgia treatment. If no improvement in headache then recommends LP to eval for [employer]DER infection. Also recommends MRI brain with and without contrast when stable but not during acute headache. Patient reports improvement of her headache after cocktail treatment per RN. Will follow. Seizure disorder : Stable, continue carbamazepine, phenytoin Dystonia : Ambulates at home with wheelchair secondary to focal dystonia of leg. Fall precautions Depression : Chronic, stable. Continue duloxetine Anxiety : Continue duloxetine, clonazepam DVT Ppx: Heparin Code status: FULL PCP: Julia Noland Dispo: Pending pain mx. Please note the above document was generated using voice recognition software. It may contain grammatical, syntax or spelling errors. Any formal questions or concerns about the content, text or information contained within the body of this dictation should be directly addressed to the provider for clarification Admission and Anticipated Discharge Date Admission Date: August 21, 2023 Subjective Patient was seen and examined at bedside. Patient lying in bed, on room air, covering her eyes with towel, reporting acute severe headache since yesterday. CT head was done last evening with no acute finding. Patient apparently not having any abdominal pain today. Had nausea and vomiting times 1 in the morning. Likely associated with headache. Patient denies any febrile illness or chest pain. Is moving bowels. Patient updated regarding results of CT head and MRI thoracic spine. Physical Exam Physical Exam: Constitutional: Alert oriented x 3 Respiratory: normal respiratory effort, lungs clear to auscultation, no wheeze, rales, rhonchi. Normal insp/exp effort, no accessory muscle use Cardiovascular: RRR, no murmur, no edema Vessels: no JVD or carotid bruit Chest: normal inspection of chest Abdomen: ?Tenderness in right upper quadrant. bowel sounds present, soft , no gu arding. Musculoskeletal: no cyanosis or clubbing, extremities motor strength 5/5 Skin: no rashes, warm and dry normal turgor Neurologic: PERRL, EOMI, accommodation nl, no face palsy, no dysarthria CN's II- XI intact bilaterally and moves all extremities Psychiatric: A+Ox3, euthymic affect Results & Data Results & Data Vital Signs (Past 12 Hours) Vital Signs Temp Pulse Resp BP Pulse Ox O2 Del Method 08/24/23 16:02 36.8 C 90 16 119/81 98 Room Air 08/24/23 07:00 36.5 C 71 16 105/72 98 Room Air (2) Nausea & vomiting Vomiting type: unspecified Qualified Code(s): R11.2 - Nausea with vomiting, unspecified
[2023-08-24] MEDS: oxyCODONE HCL IR 5 MG TAB (IMMEDIATE RELEASE) PO PRN (21:14)
[2023-08-25 06:57] LABS: Hematocrit (blood only) 38.1 % (37.0-47.0); Hemoglobin 12.7 g/dl (12.0-16.0); Mean Corpuscular Hgb Conc 33.3 g/dL (32.0-36.0); Mean Corpuscular Volume 90.1 fL (80.0-100.0); Mean Platelet Volume 8.5 fL (9.4-12.4); Platelet Count 315 K/uL (130-400); RDW Standard Deviation 42.6 fL (36.4-46.3); Red Blood Count 4.23 M/uL (4.20-5.40); White Blood Count 5.23 K/ul (4.8-10.8)
[2023-08-25 07:21] LABS: Albumin Globulin Ratio 1.5 (0.9-2); Albumin Level 3.8 gm/dl (3.4-5.0); BUN Creatinine Ratio 10.6 (10-20); Bilirubin,Total 0.2 mg/dl (0.2-1.0); Est GFR (African American) 102.9 ml/min; Est GFR (Non-African American) 88.8 ml/min; Globulin 2.5 gm/dl (2.5-4.0); Magnesium 2.4 mg/dl (1.7-2.4); Phosphorus 3.2 mg/dl (2.5-4.9); Potassium 3.9 mmol/L (3.5-5.1); Total Protein 6.3 gm/dl (6.0-8.3)
--- NOTE | 2023-08-25 09:41 | Communication Note ---
Date of Service: August 25, 2023 EMR and documentation reviewed Appears cephalgia improved following IV medication Continue to monitor cephalgia Keep low threshold for LP MRI brain with and without contrast when stable/ if tolerable Dispo per primary/hospitalist team
--- NOTE | 2023-08-25 15:00 | Hospitalist Progress Note ---
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 She is being managed for the following: RUQ abdominal pain Nausea, vomiting and diarrhea Acute viral gastroenteritis secondary to norovirus Was recently referred to GI and seen on 08/13 for chronic issues with abdominal pain and constipation. Abdominal ultrasound that showed 0.9 x 0.6 x 1.1 cm hyperechoic lesion, likely hemangioma but no cholelithiasis or evidence of acute cholecystitis. KUB revealed moderate constipation but no obstruction. Scheduled for gastric emptying scan at the end of the month. Prescribed Linzess, [reports it helped w/ BM while in hospital] and just received insurance auth, has not started. Presenting with persistent RUQ pain with associated nausea and diarrhea CT abd/pelvis with : 1. No bowel obstruction or bowel wall thickening. Normal appendix. 2. Scattered large and small bowel air-fluid levels may be physiologic or represent a mild enteritis/diarrheal illness. 3. Colonic diverticulosis without acute diverticulitis. 4. Involuting 1.2 cm right ovarian follicle. Pelvic ultrasound with : 1.Small involuting right ovarian follicle. 2. No ovarian torsion. 3. Unremarkable sonographic appearance of the uterus and endometrium. Scheduled Tylenol, lidocaine patch, attempt to limit narcotic use . Will put in as needed ketorolac. Pain management consulted; patient received trigger point injection on August 21, 2023 Right upper quadrant ultrasound w/ trace pericholecystic fluid --> HIDA scan obtained --> neg for cholecystitis. Patient today with right upper abdominal pain with associated lump and radiating down to her right groin. Patient stated that Dilaudid from cephalgia treatment cocktail from yesterday morning helped her, oxycodone which was started by the night doctor did not help her much. Pt has refused recommended pain meds often per nursing report. She was more inclined to dilaudid prescription during AM conversation. Pain management evaluating, MRI thoracic spine with no abnormality to explain her pain. Patient to follow-up with pain management on DC. Patient on gabapentin per pain management recommendation. Will follow the respo nse. For now, tylenol/gabapentin/bentyl are scheduled; oxy and ketorolac is prn. communicated w/ RN. Will ask pain Mx to eval her again in AM. Acute headache: Started 3/ evening, CT head with no acute finding. Neurology evaluated, appreciate recs - cephalalgia treatment. If no improvement in headache then recommends LP to eval for SEWER BRICKLAYER infection. Also recommends MRI brain with and without contrast when stable but not during acute headache. Patient reports improvement of her headache after cocktail treatment. Likely will get MRI on Sunday. Patient has been explained about neurological evaluation. Seizure disorder : Stable, continue carbamazepine, phenytoin Dystonia : Ambulates at home with wheelchair secondary to focal dystonia of leg. Fall precautions Depression : Chronic, stable. Continue duloxetine Anxiety : Continue duloxetine, clonazepam DVT Ppx: Heparin Code status: FULL PCP: Julia Noland Dispo: Pending pain mx. Please note the above document was generated using voice recognition software. It may contain grammatical, syntax or spelling errors. Any formal questions or concerns about the content, text or information contained within the body of this dictation should be directly addressed to the provider for clarification Admission and Anticipated Discharge Date Admission Date: August 21, 2023 Subjective Patient was seen and examined at bedside. Patient was lying in bed, on room air, crying because she is in severe pain and she feels a lump in her right upper belly which has been hurting her. I examined her right belly, I did not appreciate any lump and stated the fact to the patient. The patient seemed very upset and complained I am dismissing her pain. To reemphasize, no RUQ tenderness noted when she was distracted during my exam even today. Her vomitus yesterday looked like clear green Gatorade in the bedside commode. Per RN, patient has been eating intermittently. Patient complains of nausea, and persistent RUQ pain. Patient has not asked for as needed Bentyl as frequently as prescribed and also is not using as needed iv Tylenol as frequently. Per RN, patient has refused recommended pain medications on different occasions. Today morning patient was crying in the room that she is not being taken seriously. Regarding her cause of her pain, we have not left any stones unturned. Her evaluation of pain is as follows: When I had her on the first day on Sunday, she complained of right upper belly pain going up to her right scapula. HIDA scan was ordered came back negative. General surgery evaluated. No concern of cholecystitis. morning pain management ordered MRI thoracic spine to see if there is any radicular component pain from her thoracic spine. MRI thoracic spine did not demonstrate any findings that would explain origin of patient's described pain. Same evening, patient complained of acute headache that she felt her "head was bursting" CT head came back negative for any acute finding. No neurological signs were noted. Patient was given IV Tylenol and IV ketorolac. Patient reported transient relief only but was not interested in continuing them. Sunday, I discussed the case and her headache with neurology. He recommended cephalgia treatment cocktail and if there are no improvement, he recommended LP to rule out infection. Also recommended MRI brain when she is stable. The plan was communicated to the patient today morning, she voiced dissatisfaction in the fact that she was seen via the computer. She stated that " what kind of hospital does not have neurologist in person". I offered her if there is any questions he wants me to discuss with neurology, she declined. But it appears that she has not been complaining of headache since the Rx. She denies headache on Sunday evaluation. Today morning [which is Sunday], patient was noted crying in the room and complained of severe right upper belly pain. She also complains she has lump in the right upper belly and asked me to appreciate which I could not and I was honest to her that I could not appreciate the nodules she was complaining/feeling. She appeared upset. She reports her right upper belly pain now radiating to her right groin. Also she reported that she got Dilaudid yesterday with the cephalgia treatment cocktail, that did help her with pain. It also appears that she has been started on as needed oxycodone in the night, she states that Dilaudid helps her more than oxycodone and is not very much interested in taking oxycodone per nursing report and she stated to me if she can get more Dilaudid to manage her pain. Because of the inconsistent nature of the pain and concern for lump in her right upper belly which I could not appreciate. I suspect illness anxiety disorder versus malingering. I explained to her that I would like our psychiatry to come and speak to her. She did agree to me while at bedside though she was upset that I brought up the psychiatry evaluation. She had me talk with her Nicholas over FaceTime. Which I did and spent significant amount of time trying to explain him the background and inconsistent nature of her pain and I wanted psychiatry evaluate her. Both of them sounded okay with this plan at that point in time. Later in the day, I discussed the case with psychiatric liaison Mr. Aguirre who stated that patient is very upset about the psychiatry consult. Per psychiatry liaison, patient was completely calm and complained to him about her belly pain but she did not appear to be in pain throughout the discussion. She was noted to be resting in the bed the entire time. She stated to the liaison that her stomach pain has been there for 5 years and has been worsening since last several weeks. Physical Exam Physical Exam: Constitutional: Alert oriented x 3 Respiratory: normal respiratory effort, lungs clear to auscultation, no wheeze, rales, rhonchi. Normal insp/exp effort, no accessory muscle use Cardiovascular: RRR, no murmur, no edema Vessels: no JVD or carotid bruit Chest: normal inspection of chest Abdomen: ?Tenderness in right upper quadrant/not appreciated when distracted. bowel sounds present, soft , no guarding. Musculoskeletal: no cyanosis or clubbing, extremities motor strength 5/5 Skin: no rashes, warm and dry normal turgor Neurologic: PERRL, EOMI, accommodation nl, no face palsy, no dysarthria CN's II- XI intact bilaterally and moves all extremities Psychiatric: A+Ox3, euthymic affect Results & Data Results & Data Vital Signs (Past 12 Hours) Vital Signs Temp Pulse Resp BP Pulse Ox O2 Del Method 08/25/23 07:32 36.5 C 70 16 118/80 100 Room Air (2) Nausea & vomiting Vomiting type: unspecified Qualified Code(s): R11.2 - Nausea with vomiting, unspecified
[2023-08-25] MEDS: ACETAMINOPHEN 500 MG TAB PO SCH (16:14)
[2023-08-25] MEDS: DICYCLOMINE HCL 10 MG CAP PO SCH (16:14)
[2023-08-25] MEDS: KETOROLAC TROMETHAMINE 15 MG/ML VIAL IV PRN (18:21)
[2023-08-26 06:53] LABS: Hematocrit (blood only) 39.4 % (37.0-47.0); Mean Platelet Volume 8.4 fL (9.4-12.4); Platelet Count 312 K/uL (130-400); RDW Coefficient of Variation 13.1 % (11.5-14.5); RDW Standard Deviation 43.4 fL (36.4-46.3); Red Blood Count 4.33 M/uL (4.20-5.40)
[2023-08-26 07:11] LABS: BUN Creatinine Ratio 23.6 (10-20); Calcium 8.4 mg/dl (8.6-10.3); Creatinine Clr Calc Pharmacy 121.6 ml/min; Est GFR (African American) 125.8 ml/min; Est GFR (Non-African American) 108.5 ml/min; Magnesium 2.3 mg/dl (1.7-2.4); Phosphorus 3.6 mg/dl (2.5-4.9); Potassium 4.2 mmol/L (3.5-5.1)
[2023-08-26] MEDS: POLYETHYLENE (MIRALAX) 17 GM PACK PO PRN (12:23)
--- NOTE | 2023-08-26 14:22 | Discharge Summary ---
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 Was recently referred to GI and seen on 08/13 for chronic issues with abdominal pain and constipation. Abdominal ultrasound that showed 0.9 x 0.6 x 1.1 cm hyperechoic lesion, likely hemangioma but no cholelithiasis or evidence of acute cholecystitis. KUB revealed moderate constipation but no obstruction. Patient was scheduled for gastric emptying scan but had to reschedule for the end of the month due to a conflict. GI recommended starting MiraLAX 1 capful twice daily, Dulcolax as needed and marijuana cessation recommended. Patient states pain in right upper quadrant has been more severe ever since abdominal ultrasound at the end of July and describes it as a constant burning pain exacerbated by movement and associated with persistent nausea. After trial of MiraLAX for the first time, patient vomited and has continued to have intermittent bilious emesis and inconsistent moving of her bowels but when she goes, it is liquid in consistency, nonbloody and usually has 2 episodes a day. Endorses chills but denies fevers. Has children at home who have had colds but no one else at home with GI illness. Was prescribed Linzess and got insurance approval but has not received yet and therefore not started. Admits she is continued to smoke marijuana daily despite recommendation for cessation. Has been admitted for severe abdominal pain and nausea multiple times in the past and seen by GI service in setting of non-specific colitis on imaging. Most recent EGD and colonoscopy were performed in 2019. EGD was normal and colonoscopy revealed internal hemorrhoids. During 2019 admission for persistent right upper quadrant discomfort, patient eventually received trigger injections by pain management with relief as well as dicyclomine 4 times daily. Symptoms resolved after discharge home until over the past month. Sister with ulcerative colitis and colon cancer. Admission Exam Per Admitting Provider General Appearance: WD/WN, vitals as above, NAD, sitting up in bed, in distress, crying intermittently during interview Head: normocephalic, atraumatic Eyes: normal inspection, PERRL, conjunctivae normal, anicteric sclerae ENT: external ear and nose normal, oropharynx normal Neck: normal visual inspection, trachea midline, no thyromegaly Respiratory: normal respiratory effort, lungs clear to auscultation, no wheeze, rales, rhonchi. No accessory muscle use Cardiovascular: tachycardic rate, regular rhythm, no murmur, normal peripheral pulses, no BLE edema. Vessels: no JVD Chest: normal inspection of chest Abdomen/GI: normal bowel sounds, soft, TTP RUQ, no hepatosplenomegaly Extremities/Musculoskeletal: no cyanosis or clubbing, extremities motor strength 5/5 Neurologic: PERRL, EOMI, accommodation nl, no face palsy, no dysarthria, CN's II-XI intact bilaterally and moves all extremities Psychiatric: A+Ox3, euthymic affect Skin: no rashes, normal color, warm/dry Principal Dx & Hospital Course #1 = Principal Diagnosis (1) RUQ abdominal pain: (2) Nausea & vomiting: (3) Diarrhea: (4) Seizure disorder: (5) Depression: (6) Dystonia: (7) Asthma: (8) Anxiety: Plan 33yo F with PMH of hepatic vein thrombosis, seizure disorder, anxiety, daily medical marijuana use, chronic back pain, 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 She was being managed for the following: RUQ abdominal pain Nausea, vomiting and diarrhea Acute viral gastroenteritis secondary to norovirus Was recently referred to GI and seen on 08/13 for chronic issues with abdominal pain and constipation. Abdominal ultrasound that showed 0.9 x 0.6 x 1.1 cm hyperechoic lesion, likely hemangioma but no cholelithiasis or evidence of acute cholecystitis. KUB revealed moderate constipation but no obstruction. Scheduled for gastric emptying scan at the end of the month. Prescribed Linzess, [reports it helped w/ BM while in hospital] and just received insurance auth, has not started at home. Presenting with persistent RUQ pain with associated nausea and diarrhea CT abd/pelvis with : 1. No bowel obstruction or bowel wall thickening. Normal appendix. 2. Scattered large and small bowel air-fluid levels may be physiologic or represent a mild enteritis/diarrheal illness. 3. Colonic diverticulosis without acute diverticulitis. 4. Involuting 1.2 cm right ovarian follicle. Pelvic ultrasound with : 1.Small involuting right ovarian follicle. 2. No ovarian torsion. 3. Unremarkable sonographic appearance of the uterus and endometrium. Pain was treated with scheduled Tylenol, gabapentin, Bentyl, lidocaine patch, prn ketorolac, prn narcotics with oxycodone. Pain management consulted; patient received trigger point injection on August 21, 2023 Right upper quadrant ultrasound w/ trace pericholecystic fluid --> HIDA scan obtained --> neg for cholecystitis. Patient at one point with right upper abdominal pain with associated lump and radiating down to her right groin. Patient stated that Dilaudid from cephalgia treatment cocktail from prior morning helped her, oxycodone which was started overnight did not help her much. Pain management evaluating, MRI thoracic spine with no abnormality to explain her pain. Patient to follow-up with pain management on DC. Acute headache: Started evening of 08/22 , CT head with no acute finding. Neurology evaluated, appreciate recs - cephalalgia treatment. If no improvement in headache then recommends LP to eval for [employer] infection. Also recommends MRI brain with and without contrast when stable but not during acute headache. Patient reports improvement of her headache after cocktail treatment. On August 25, pt stated that her pain was improved and that she wanted to go home. Notes that she had taken the oxycodone overnight and that helped. Headache was controlled. Noted that she had pcp follow up scheduled in 2 days. She was discharged with oxycodone and Bentyl for pain with close PCP and GI followup for continued management and evaluation of her pain. She was stable on discharge. Seizure disorder : Stable, continue carbamazepine, phenytoin Dystonia : Ambulates at home with wheelchair secondary to focal dystonia of leg. Fall precautions Depression : Chronic, stable. Continue duloxetine Anxiety : Continue duloxetine, clonazepam Discharge Exam General: Alert, oriented. No acute distress Skin: No noted rashes or bruises Psych: Appropriate mood and affect Neuro: No gross deficits HEENT: NC/AT Chest: Nontender to palpation. CV: RRR, Normal s1, s2. No murmurs appreciated Resp: Breath sounds clear bilaterally, no increased effort of breathing. Abdomen: Soft, mildly tender, nondistended. Extremities: No edema in lower extremities bilaterally. Updated Medication List Medication Instructions Recorded Confirmed Type albuterol sulfate 90 mcg/actuation 2 puff inhalation Q4 PRN Wheezing 08/19/23 08/19/23 History aerosol inhaler carbamazepine 100 mg chewable 150 mg PO BID 08/19/23 08/19/23 History tablet carbamazepine 300 mg 600 mg PO AMHS 08/19/23 08/19/23 History capsule,extended release [id number] clonazepam 1 mg tablet 1 mg PO QID 08/19/23 08/19/23 History duloxetine 60 mg capsule,delayed 120 mg PO QAM 08/19/23 08/19/23 History release linaclotide 145 mcg capsule 145 mcg PO .NOT YET STARTED 08/19/23 08/19/23 History (Linzess) ondansetron 4 mg disintegrating 4 mg PO Q6H PRN Nausea 08/19/23 08/19/23 History tablet phenytoin sodium extended 100 mg 200 mg PO AMPM 08/19/23 08/19/23 History capsule dicyclomine 10 mg capsule 10 mg PO Q8H PRN abdominal pain 08/26/23 Rx #10 caps oxycodone 5 mg tablet 5 mg PO Q8H PRN pain #6 tabs 08/26/23 Rx Hospital Stay Data Consultations 08/19/23 16:24 ED Decision to Admit Stat 08/19/23 16:52 Consult Gastroenterology Routine 08/20/23 10:14 Consult Pain Management Routine 08/22/23 11:03 Consult General Surgery Routine 08/24/23 11:57 Consult Neurology Routine 08/25/23 12:23 Consult Patient Rep [Consult Patient Services] Routine Diagnostic Imagining Performed 08/19/23 12:48 CT abd pelvis IV con only Stat US pelvic complete Stat 08/22/23 US liver Routine 08/23/23 12:44 MR thoracic spine wo con Routine 08/23/23 14:44 CT head/brain wo con Stat Abdomen/Pelvis CT 08/19/23 12:[address] WITH IV CONTRAST CT DOSE: 1264.81 mGy.cm HISTORY: Acute right lower quadrant abdominal pain RLQ pain TECHNIQUE: Multiaxial CT images of the abdomen and pelvis were performed following the IV administration of 93 cc of Optiray, A dose lowering technique was utilized adhering to the principles of ALARA. COMPARISON STUDY: December 17, 2021, MRI 11/12/2018. FINDINGS: The lung bases are clear. The spleen, gallbladder, pancreas, kidneys, and adrenal glands are within normal limits. Unchanged 1.6 cm lesion within the inferior right hepatic lobe on image 35 series 2 which was described as a probable complex cyst on the prior MRI. Normal appendix. Mild colonic diverticulosis. Scattered small enlarged bowel air-fluid levels. No bowel wall thickening or obstruction. 1.2 cm involuting right ovarian follicle. Pelvic structures are otherwise unremarkable. No suspicious lytic or blastic osseous lesions. IMPRESSION: 1. No bowel obstruction or bowel wall thickening. Normal appendix. 2. Scattered large and small bowel air-fluid levels may be physiologic or represent a mild enteritis/diarrheal illness. 3. Colonic diverticulosis without acute diverticulitis. 4. Involuting 1.2 cm right ovarian follicle. ACT 112: Negative or not required by law. The above report was generated using voice recognition software. It may contain grammatical, syntax or spelling errors. Electronically signed by: Omid Schulz M.D. 08/19/2023 2:23 PM Pelvis Ultrasound 08/19/23 12:48 US pelvic complete HISTORY: 33 years-old Female RLQ pain acute right-sided pelvic pain COMPARISON: CT of same day TECHNIQUE: Multiple real-time sonographic images of the deep pelvic structures were obtained transabdominally assessing grayscale appearance, color and spectral flow FINDINGS: 7.5 x 3.5 x 5.7 cm uterus. No myometrial mass lesion. Endometrium measures 5 mm. Patient declined the transvaginal portion of the study. No significant free pelvic fluid. Right ovary measures 3.5 x 2.0 x 2.6 cm. Left ovary measures 2.9 x 1.8 x 1.5 cm. Arterial inflow and venous outflow is present bilaterally. 1.7 cm involuting right ovarian follicle. IMPRESSION: 1. Small involuting right ovarian follicle. 2. No ovarian torsion. 3. Unremarkable sonographic appearance of the uterus and endometrium. ACT 112: Negative or not required by law. The above report was generated using voice recognition software. It may contain grammatical, syntax or spelling errors. Electronically signed by: Omid Schulz M.D. 08/19/2023 3:14 PM Liver Ultrasound 08/22/23 00:00 ULTRASOUND RIGHT UPPER QUADRANT ABDOMEN CLINICAL HISTORY: Right upper quadrant abdominal pain. COMPARISON STUDY: Abdominal CT dated 08/19/2023. TECHNIQUE: Real-time, grayscale, and color flow sonography of the right upper quadrant of the abdomen was performed. Images are reviewed in the transverse and longitudinal planes. FINDINGS: Liver: The liver is normal in size and echotexture. There is no intrahepatic biliary ductal dilatation. The main portal vein is patent. A 1.4 cm round echogenic lesion in the inferior right lobe was also seen by CT. This is typical for a small hemangioma. Gallbladder: The gallbladder is normal in appearance. No gallstones are identified. There is no gallbladder wall thickening or edema. Question trace pericholecystic fluid. A sonographic Zuniga's sign is reportedly absent. The common bile duct measures up to 0.3 cm in diameter. Pancreas: Visualized portions of the pancreatic head and body are normal in appearance. Right kidney: Survey images of the right kidney demonstrate normal size and echotexture. There is no hydronephrosis. Ascites: None. IMPRESSION: 1. No gallstones are identified and there is no sonographic evidence of acute cholecystitis. 2. Question trace pericholecystic fluid. This may be artifactual. If there is strong clinical/laboratory concern for acute cholecystitis a nuclear hepatobiliary scan could be considered. ACT 112: Negative or not required by law. Electronically signed by: Santos Garcia M.D. 08/22/2023 7:32 AM Hepatobiliary Scan Nuclear Medicine 08/22/23 11:03 NUCLEAR HEPATOBILIARY SCAN CLINICAL HISTORY: Right upper quadrant abdominal pain. COMPARISON STUDY: Abdominal ultrasound dated 08/22/2023. TECHNIQUE: Dynamic images of the liver and anterior abdomen were obtained every 5 minutes for a total of 60 minutes following the IV administration of 5.1 mCi of technetium 99m Mebrofenin. FINDINGS: The hepatobiliary scan shows prompt and homogeneous hepatic uptake. There is visualized activity within the intra and extrahepatic biliary tree at 10 minutes, and within the gallbladder at 15 minutes. There is normal biliary to bowel transit, with small bowel visualized by 50 minutes. IMPRESSION: Normal nuclear hepatobiliary scan. There is no scintigraphic evidence of cholecystitis. ACT 112: Negative or not required by law. Electronically signed by: Santos Garcia M.D. 08/22/2023 4:13 PM Thoracic Spine MRI 08/23/23 12:44 MR thoracic spine wo con HISTORY: 33 years-old Female thoracic back pain; possible radicular RUQ pain acute mid back pain without reported trauma COMPARISON: CT cervical spine 08/28/2021 TECHNIQUE: Multiplanar multisequence MRI of the thoracic spine was obtained without the use of IV contrast. FINDINGS: Normal signal within the thoracic and imaged cervical spinal cord. There is mild multilevel intervertebral disc space narrowing, spondylitic spurring and facet arthrosis without acute fracture, subluxation, endplate erosion or marrow replacing process. Severe C5-C6 with moderate C6-C7 disc space narrowing redemonstrated with bridging osteophytosis. No large annular disc bulges within the thoracic spine. No high-grade central canal or foraminal narrowing identified. No significant bone marrow edema. The imaged intrathoracic and paraspinal structures are unremarkable. IMPRESSION: 1. Mild intervertebral disc space narrowing, spondylitic spurring and facet arthrosis without significant central canal or foraminal narrowing. 2. No acute fracture, subluxation or bone marrow edema. ACT 112: Negative or not required by law. The above report was generated using voice recognition software. It may contain grammatical, syntax or spelling errors. Electronically signed by: Omid Schulz M.D. 08/23/2023 5:33 PM Thoracic Spine X-Ray 08/23/23 12:44 THORACIC SPINE 3 VIEWS CLINICAL HISTORY: Thoracic back pain. FINDINGS: AP, lateral, and swimmer's views of the thoracic spine are correlated with CT scan of the thoracic spine dated 09/15/2008. The skeletal structures are well mineralized. There is no radiographic evidence of fracture or malalignment. Vertebral body height and alignment are maintained throughout the thoracic spine. The transverse processes and pedicles are intact as seen on the frontal view. Spondylotic change is noted in the lower cervical spine on the swimmer's view. The disc spaces are maintained. The imaged lung parenchyma appears clear. IMPRESSION: No acute bony abnormality is seen involving the thoracic spine. ACT 112: Negative or not required by law. Electronically signed by: Santos Garcia M.D. 08/23/2023 4:[address] 08/23/23 14:44 CT SCAN OF THE BRAIN WITHOUT IV CONTRAST CLINICAL HISTORY: Acute headache. Blurry vision. COMPARISON STUDY: CT of the brain dated 08/29/2021. TECHNIQUE: Unenhanced axial CT scan of the brain is performed from the vertex to the skull base. A dose lowering technique was utilized adhering to the principles of ALARA. CT DOSE: 547.75 mGy.cm FINDINGS: Brain parenchyma: The brain parenchyma is normal in appearance. There is no hemorrhage, mass effect, or evidence of acute territorial ischemia by CT criteria. Daniels-white matter differentiation is preserved. No extra-axial fluid collection is seen. Ventricles, sulci, cisterns: Normal in configuration. Intracranial vasculature: The visualized intracranial vasculature at the skull base is normal in appearance. Calvarium: Unremarkable. Sinuses and mastoids: The visualized paranasal sinuses are clear. The mastoid air cells are well pneumatized. Orbits: The bony orbits are grossly intact. IMPRESSION: No acute intracranial abnormality. ACT 112: Negative or not required by law. Electronically signed by: Santos Garcia M.D. 08/23/2023 4:54 PM Pending Results Patient Have Any Pending Studies at Discharge: No Discharge Instructions Given to Patient (Per Discharging Provider) Donya, You were admitted and treated for chronic abdominal, head and neck pain. You had various studies done and saw different specialists. You will need continued followup after discharge to help further determine the exact nature of your pain and to treat. We are discharging you home with some medications to help, in particular a few tablets of the medications Bentyl and oxycodone. Please do not take the oxycodone while you are taking your home clonazepam. You are requesting to be discharged home. We are discharging you home with close follow up with your primary care provider in the next 2 days. Pain Management would also like to follow with you after discharge. Please keep close follow up with your primary care provider after discharge. Please do not hesitate to come back to the emergency room if your symptoms worsen or return. It was a pleasure taking care of you while you were here. Total Time Total Time Spent Total Time Spent (In Minutes): >30 minutes
== END 2023-08-26 15:42 | disposition home or self-care (01) | DRG 392 ==
LOC: 3W 12:27 → ED 12:27 → SUATTDRO 16:16 → 3W 20:35 → SUATTDRO 08-21 16:58